=== PATIENT | female | born 1990 | race Hispanic/Latino ===

== ENCOUNTER 2017-12-26 11:14 | Emergency (ER) | payer OTHER, BC, SELFPAY ==
[2017-12-26] VITALS (9 sets, daily range): BP systolic 94–124; BP diastolic 57–92; PULSE 62–112; RESP 15–24; TEMP 36.7; O2SAT 91–100; BMI 31.2
[2017-12-26] MEDS: Ondansetron 4 MG/2 ML Vial IV (11:19)
[2017-12-26] MEDS: Propofol 200 MG/20 ML Vial IV BOLUS (11:52)
[2017-12-26] MEDS: Ketorolac 30 MG/ML Syringe IV (11:57)
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
== END 2017-12-26 13:09 | disposition home or self-care (01) ==
PROVIDERS: Emergency Provider Emergency Medicine; Family Provider Student in an Organized Health Care Education/Training Program; PCP Student in an Organized Health Care Education/Training Program
DX: S82.852A Displaced trimalleolar fracture of left lower leg, initial encounter for closed fracture (principal); S00.81XA Abrasion of other part of head, initial encounter; Y04.2XXA Assault by strike against or bumped into by another person, initial encounter; Y93.9 Activity, unspecified; Y92.119 Unspecified place in children's home and orphanage as the place of occurrence of the external cause; Y99.0 Civilian activity done for income or pay; J45.909 Unspecified asthma, uncomplicated
CPT/HCPCS: 27818; 73600; 73610; 96374; 96375; 99152; 99285; J7030; J2405

== ENCOUNTER 2017-12-29 12:32 | Day surgery (SDC) | payer OTHER, SELFPAY ==
[2017-12-29] VITALS (9 sets, daily range): BP systolic 109–129; BP diastolic 59–79; PULSE 72–99; RESP 16–18; TEMP 36.2–36.4; O2SAT 93–100; BMI 29.3
[2017-12-29] MEDS: Cefazolin 2 GM in 0.9% Normal Saline 100 ML IV (07:00)
[2017-12-29 13:16] LABS: Hematocrit 35.8 % (37-47); Hemoglobin 11.8 g/dl (12.0-15.0); Mean Corpuscular Hgb 30.3 pg (27.0-32.0); Platelet Count 267 K/mm3 (150-450); RBC Distribution Width CV 12.4 % (11.6-14.6); RBC Distribution Width SD 40.5 fl (35.1-43.9); Red Blood Count 3.89 M/mm3 (4.2-5.4); White Blood Count 6.1 K/mm3 (4.4-11.0)
[2017-12-29 13:18] LABS: Internal QC Validated? YES +Cl - CLEAR BKGD; Pregnancy, Urine Negative Negative
[2017-12-29 13:19] LABS: Scan Indicated on CBC? Y/N NO
[2017-12-29 13:30] LABS: Partial Thromboplast Time 27.7 Seconds (24.1-36.2); Prothrombin Time (Protime)PT. 13.5 SECONDS (11.7-14.9)
[2017-12-29 13:31] LABS: AST(SGOT) 290 U/L (15-37); Alanine Aminotransfer ALT/SGPT 492 U/L (13-56); Albumin, Serum 3.2 g/dL (3.2-5.0); Alkaline Phosphatase 277 U/L (45-117); Bilirubin, Direct 0.44 mg/dL (0.00-0.30); Globulin 3.9 g/dL (2.2-4.2); Protein, Total 7.1 g/dL (6.4-8.2)
--- NOTE | 2017-12-29 15:46 | PCM.OPRPT ---
Report of Operation Date of Procedure: 12/29/17 Pre-Operative Diagnosis: Left trimalleolar ankle fracture Post-Operative Diagnosis: Left trimalleolar ankle fracture Surgery/Procedure Performed:: Open reduction internal fixation medial and lateral malleolus of trimalleolar ankle fracture. Stress exam under uroscopy left ankle and syndesmosis Description of Surgical Findings:: Stable reduction, stable syndesmosis on stress exam chief environmental commitment officer: Lex Salamanca Type of Anesthesia:: General Anesthesiologist: Zenon Crawford Special Medications: 2 g Ancef Estimated Blood Loss (mL): 15 Fluids Replaced: 1200 milliliters crystalloid Description of Procedure: On the date of the procedure patient's left ankle was marked in the preoperative area. Patient was taken back to the operating room where she was transferred to the table in supine position. Anesthesia assumed control the C-spine airway and remained in control throughout the remainder the procedure. Anesthesia was administered. Bump was placed under the left hip. Tourniquet was placed in the right upper extremity. Left leg was elevated using towels. Right leg was secured to the bed. Left lower extremities and prepped in a sterile fashion while surgeon scrubbed. Upon reentering the room the left lower exam he was draped in standard orthopedic fashion. Incisions were marked out and timeout was called. When agreed upon the side, the site, the procedure to be performed, patient identity and antibiotics given. Incision was made at the skin sub cutaneous tissue fat down to fascia. We then used blunt dissection to identify the superficial peroneal nerve which crossed right over the fracture site. This nerve was identified and protected throughout the case. Fracture was identified and dissected out. Once the fracture was identified and exposed hematoma was irrigated out with normal saline. Fracture was then reduced using pointed reduction clamps. Live x-ray was used to verify the fracture reduction. Once we have with the fracture reduction a 2.7mm lag screw was placed using a lag technique. Once this was completed the fracture was stable. We then used a 6 hole one third tubular plate placing the screws proximally and distally. Once this was done we used live fluoroscopy to verify fracture reduction. Our attention was then directed towards the medial malleolus. Incision was made over the medial ankle fracture was identified. Fracture was exposed. Once the fracture was exposed hematoma was irrigated. Point reduction clamp was used to reduce the fracture. Live x-ray was used to verify fracture reduction. At this time the live x-ray was used to drill for 2, 50 mm 4-0 partially-threaded cancellous screws. Once the screws were placed and verified under live fluoroscopy final x-rays were performed. Once we are happy with our fracture reduction and reduction of the ankle we noted that the small posterior malleolar fragment did not need to be reduced to the ankle was stable well aligned and well reduced. Once we are happy with ourh our fracture reduction we then obtain an appropriate mortise view. External rotation was placed on the ankle and the mortise did not widen. This showed us that the syndesmosis was stable. Wound was copiously out normal saline. Skin was closed using 2-0 Vicryl & 3-0 nylon. Xeroform dressing was placed, compressive dressing was placed. Well-padded splint was placed posteriorly. Patient was awakened by anesthesia and taken to the PACU for recovery. Postoperative plan is nonweightbearing for 6 weeks. Patient will return to the office in 2 weeks to begin range of motion exercises and have her sutures removed. She was instructed to take 325 mg aspirin once daily for DVT prophylaxis for the next 2 weeks. My physician bilingual office assistant was vital throughout this case. He was vital in helping with reduction of the fracture. He was vital in protecting soft tissues. He was especially vital in protecting superficial peroneal nerve throughout the case. He was vital in closure and placement of the splint under my direct supervision. Grafts/Implants Used: 7 hole 1/3 tubular Synthes plate, 45 mm partially threaded cancellous screw - Complications none - Admit VTE Documentation VTE Present on Admission: No VTE Mechan Device Prophylaxis: SCD's VTE Pharm Prophylaxis ordered?: Yes
[2017-12-29] MEDS: oxyCODONE 5 MG Tablet PO (17:59)
== END 2017-12-29 19:29 | disposition home or self-care (01) ==
LOC: SDC 12:34 → AC 12:35
PROVIDERS: Family Provider Student in an Organized Health Care Education/Training Program; PCP Student in an Organized Health Care Education/Training Program; Visit Provider Specialist
PROC: (CPT 27822; principal; 2017-12-29 15:10)
DX: S82.852A Displaced trimalleolar fracture of left lower leg, initial encounter for closed fracture (principal); S93.05XA Dislocation of left ankle joint, initial encounter; W50.2XXA Accidental twist by another person, initial encounter; Y93.9 Activity, unspecified; Y92.9 Unspecified place or not applicable; Y99.9 Unspecified external cause status; J45.909 Unspecified asthma, uncomplicated
CPT/HCPCS: 27822; 73610; 76000; 80076; 81025; 85027; 85610; 85730; C1713; J7120; J2405

== ENCOUNTER 2018-01-01 18:46 | Emergency (ER) | payer OTHER, SELFPAY ==
[2018-01-01 18:47] VITALS: BP 118/65; PULSE 100; RESP 17; TEMP 37.1; O2SAT 93; BMI 29.8
[2018-01-01] MEDS: HYDROcodone Bitartrate/Apap 5/325 Tablet PO (19:39)
--- NOTE | 2018-01-01 19:41 | ED.VISSUMM ---
- ER Visit Summary Date of Service: 01/01/18 Chief Complaint: Left foot numbness History of Present Illness: The patient is a 27 F sudden numbness left foot and ankle 2 hours prior to arrival. 3 days postop ORIF of left ankle from a trimalleolar fracture [address] Pope is orthopedist. She is in a splint and Rene wrap. She states she is elevating her extremity. She is written for Percocet prescription however states since being given it would have emesis every time. Initially in the ED was given hydrocodone for which she tolerated. States pain is not controlled due to not being able to hold down the medications. Physical Examination: General: Alert and oriented ?3, no acute distress HEENT: Normocephalic, atraumatic. Moist mucosa membranes Neck: supple, nontender. Cardiovascular: Regular rate and rhythm, no murmurs Respiratory: Normal breath sounds, symmetric, no distress Abdomen: Soft, nontender, nondistended Extremities: Left lower extremity: Posterior short leg splint with Rene wrap. DP pulses intact. She states she is unable to move her toes, decreased sensation. Cap refill is less than 3 seconds in all 5 toes. Test Results: [] Emergency Department Course and Treatment: Rene wrap was removed from splint, she was treated with hydrocodone. She is monitored on reevaluation, her sensation in improved along with movement of her toes. Gentle wrap was placed. Discussed with patient continue elevation. OAARS noted her initial hydrocodone along with secondary oxycodone 40 tabs. I discussed with the patient will write for hydrocodone, however she will need to take her oxycodone to the pharmacies return in in order for them to refill. Patient understands and agrees with plan. Treatment Plan: [] Disposition: Discharge Impression: 1. Splint evaluation 2. Medication intolerance This note was generated with [employer] dictation software. It may contain incorrect words, spelling, and punctuation that were not noted in review of the chart prior to signing ED Disposition - Plan for ED Patient: Disposition: Home or Assisted Living Chief Complaint: Lower Extremity Injury Diagnosis: Splint evaluation, Medication intolerance Instructions: Discharge Instructions: Splint Care Prescriptions: Hydrocodone Bitart/Apap 5-325 [[place] 5MG-325MG] 1 tablet PO Q6H PRN PRN #20 tablet PRN Reason: Pain Referrals: Drake Whiting DO [Primary Care Provider] - Blane Pope MD [STAFF PHYSICIAN] - Keep Ross appointment
== END 2018-01-01 19:54 | disposition home or self-care (01) ==
PROVIDERS: Emergency Provider Emergency Medicine; Family Provider Student in an Organized Health Care Education/Training Program; PCP Student in an Organized Health Care Education/Training Program
DX: R11.2 Nausea with vomiting, unspecified (principal); S82.852D Displaced trimalleolar fracture of left lower leg, subsequent encounter for closed fracture with routine healing; T40.2X5A Adverse effect of other opioids, initial encounter; Y92.9 Unspecified place or not applicable; X58.XXXD Exposure to other specified factors, subsequent encounter
CPT/HCPCS: 99283

== ENCOUNTER 2018-06-05 20:15 | Emergency (ER) | payer OTHER, BC, SELFPAY ==
[2018-06-05 20:16] VITALS: BP 111/71; PULSE 90; RESP 14; TEMP 37.1; O2SAT 97; BMI 29.2
--- NOTE | 2018-06-05 20:27 | RAD_ITS ---
We are attempting to reach [facility] to discuss findings. An addendum with communication details will be sent when the communication is complete. STUDY: X-RAY - LEFT ANKLE REASON FOR EXAM: Female, 28 years old. Increased pain and numbness TECHNIQUE: 3 view(s) of the ankle. COMPARISON: 12/29/2017 FINDINGS: The fusion hardware of the distal fibula and medial malleolus have been removed since the prior study with residual lucencies correlating testicular tracts. The medial malleolus and distal fibular fractures have healed. No fracture or destructive bony process. Normal tibiotalar articulation and ankle mortise. Normal visualized talus and calcaneus. The visualized subtalar, talonavicular, calcaneocuboid and tarsal articulations are normal. The soft tissue structures are unremarkable. RAD/Ankle min 3 Views IMPRESSION: 1. Removal of surgical hardware. Healed distal fibular and medial malleolus fractures. Pending Final Proof Editing
[2018-06-05] MEDS: Ibuprofen 600 MG Tablet PO (20:42)
--- NOTE | 2018-06-05 20:50 | ED.DCSUM_ITS ---
- ER Visit Summary Date of Service: 06/05/18 Chief Complaint: [Left ankle pain History of Present Illness: The patient is a 28 F who has left ankle pain. Is been hurting her worse for the past 3 days. She had a fracture in December and has had 3 subsequent surgeries for ORIF and then she subsequently had hardware removal. This was all done by Dr. Pope. She denies any new injury. Her pain is increasing and she states it also feels numb. It is diffusely across her ankle. Movement makes it worse. She tried Tylenol at home. Physical Examination: Vital signs are reviewed. Left ankle exam reveals diffuse tenderness. There is no swelling. She has decreased range of motion secondary to pain. Pulses are equal. Her incisions are clean dry and intact and well- healed. Test Results: Left ankle x-rays revealed healed fractures and evidence of hardware removal but no fractures. Emergency Department Course and Treatment: She requested ibuprofen here. She was given this. I do not see any acute causes for her pain. She will need follow-up with orthopedics. I will give her a work note. She will follow-up with orthopedics. Treatment Plan: [] Disposition: Discharge Impression: Ankle pain, left This note was generated with [employer] dictation software. It may contain incorrect words, spelling, and punctuation that were not noted in review of the chart prior to signing ED Disposition - Plan for ED Patient: Chief Complaint: Lower Extremity Injury Referrals: Drake Whiting DO [Primary Care Provider] -
--- NOTE | 2018-06-05 21:23 | ED.DEP ---
ED Disposition - Plan for ED Patient: Disposition: Home or Assisted Living Chief Complaint: Lower Extremity Injury Instructions: ED Contusion Lower Ext Referrals: Drake Whiting DO [Primary Care Provider] -
[2018-06-05 21:44] VITALS: BP 111/75
== END 2018-06-05 21:49 | disposition home or self-care (01) ==
PROVIDERS: Emergency Provider Emergency Medicine; Family Provider Student in an Organized Health Care Education/Training Program; PCP Student in an Organized Health Care Education/Training Program
DX: M25.572 Pain in left ankle and joints of left foot (principal)
CPT/HCPCS: 73610; 99282

== ENCOUNTER 2018-11-06 19:29 | Emergency (ER) | payer OTHER, MEDICAID, SELFPAY ==
[2018-11-06 19:30] VITALS: BP 120/70; PULSE 85; PULSE 88; RESP 14; RESP 16; TEMP 36.4; TEMP 36.6; O2SAT 100; O2SAT 98; BMI 31.4
--- NOTE | 2018-11-06 19:48 | RAD_ITS ---
STUDY: X-RAY - LEFT ANKLE REASON FOR EXAM: Female, 28 years old. Left ankle pain TECHNIQUE: 3 view(s) of the ankle. COMPARISON: Left ankle x-ray 06/05/2018 FINDINGS: Of note, the images are labeled RIGHT, these are in fact images of the LEFT ankle. Again seen are residual lucencies corresponding to the previously removed screw tracts in the distal fibula diaphysis. There is chronic, healed fracture of the distal fibula. No apparent acute fracture. Normal visualized distal tibia . Normal medial and lateral malleoli. Normal tibiotalar articulation and ankle mortise. Normal visualized talus and calcaneus. The visualized subtalar, talonavicular, calcaneocuboid and tarsal articulations are normal. The soft tissue structures are unremarkable. RAD/Ankle min 3 Views IMPRESSION: No acute fracture or dislocation. Chronic changes of the distal fibula as described above are unchanged. Electronically Signed: Chyna Yousif, at 20:10 EDT Tel , Service support ,
--- NOTE | 2018-11-06 20:09 | ED.VISSUMM ---
- ER Visit Summary Date of Service: 11/06/18 Chief Complaint: Left ankle pain History of Present Illness: The patient is a 28 F who broke her left ankle last fall while working at [employer]. She is had multiple surgeries to repair and then remove the hardware. She is scheduled to see a new surgeon in [place]. She reports increased pain does not remember new specific injury. Pain is been worse over the past 3 days. Physical Examination: Vital signs unremarkable. Patient sitting upright in bed no acute distress. Left lower extremity examination was tenderness along the lateral malleolus and well-healed incision. There is no edema or erythema. Strong pulses are noted. No tenderness of the proximal fibula. Test Results: Left ankle x-rays reveal no acute fracture. Emergency Department Course and Treatment: I did do an [facility] report. She had 21 tabs of tramadol written on October 24 that she states she is out of. She last got oxycodone in December 2017. Patient states that she spoke with orthopedics and they advised her to come in to get him stronger for pain for a day or 2 until she could be seen. She will be given 6 tabs of Percocet only. She was encouraged to use her crutches to stay off of the ankle to see if that improves. Treatment Plan: [] Disposition: Discharge Impression: Left ankle sprain with history of ankle surgeries This note was generated with [employer] dictation software. It may contain incorrect words, spelling, and punctuation that were not noted in review of the chart prior to signing ED Disposition - Plan for ED Patient: Disposition: Home or Assisted Living Instructions: Sprain, Ankle, with X-Ray Prescriptions: Oxycodone HCl/Acetaminophen [Percocet 5/325] 1 tablet PO Q6H PRN PRN 3 Days #6 tablet PRN Reason: Pain Referrals: Drake Whiting DO [Primary Care Provider] - Additional Instructions: Follow-up with orthopedics this week to get your referral to the surgeon in [place]. Use crutches as needed.
[2018-11-06 20:21] VITALS: BP 117/70; PULSE 80; RESP 14; O2SAT 98
== END 2018-11-06 20:21 | disposition home or self-care (01) ==
PROVIDERS: Emergency Provider Emergency Medicine; Family Provider Student in an Organized Health Care Education/Training Program; PCP Student in an Organized Health Care Education/Training Program
DX: S93.402A Sprain of unspecified ligament of left ankle, initial encounter (principal); X58.XXXA Exposure to other specified factors, initial encounter; Y93.9 Activity, unspecified; Y92.9 Unspecified place or not applicable; Y99.9 Unspecified external cause status; J45.909 Unspecified asthma, uncomplicated
CPT/HCPCS: 73610; 99282

== ENCOUNTER 2018-12-13 21:24 | Emergency (ER) | payer OTHER, SELFPAY ==
[2018-12-13 21:25] VITALS: BP 118/61; PULSE 106; RESP 16; TEMP 36.6; O2SAT 98; BMI 31.0
[2018-12-13 21:59] VITALS: BP 122/70; PULSE 90; RESP 14; RESP 16; TEMP 36.6; O2SAT 98
[2018-12-13] MEDS: HYDROcodone Bitartrate/Apap 5/325 Tablet PO (22:25)
[2018-12-13] MEDS: 0.9% Normal Saline 1,000 ML 1000 ML IV (22:26)
[2018-12-13 22:43] LABS: Absolute Lymphocyte Count 2.47 X10^3/uL (0.83-4.51); Basophil# 0.02 X10^3/uL; Basophil% 0.3 % (0-1); Eosinophil# 0.07 X10^3/uL; Eosinophils% 0.9 % (0-5); Hematocrit 37.2 % (37-47); Hemoglobin 11.9 g/dL (12.0-15.0); Lymphocyte # 2.47 X10^3/ul (4.0); Mean Corpuscular Hgb 30.1 pg (27.0-32.0); Mean Corpuscular Volume 93.9 fL (81-99); Mean Platelet Vol. 9.3 fl (6.2-12.0); NRBC Flagged by Analyzer 0 % (0-5); Neutrophil # 4.98 X10^3/uL (2.7-7.7); Neutrophil % 62.4 % (47-70); Platelet Count 268 K/mm3 (150-450); RBC Distribution Width CV 11.9 % (11.6-14.6); RBC Distribution Width SD 41.2 fl (35.1-43.9); Red Blood Count 3.96 M/mm3 (4.2-5.4)
--- NOTE | 2018-12-13 22:50 | RAD_ITS ---
STUDY: X-RAY - LEFT TIBIA AND FIBULA REASON FOR EXAM: Female, 28 years old. Left ankle swelling TECHNIQUE: 2 view(s) of the tibia and fibula were obtained. COMPARISON: None. FINDINGS: Multiple remote hardware defects in the tibia and fibula. No acute fracture or osteolytic lesion. No periosteal reaction. Soft tissue swelling. RAD/Tibia & Fibula 2 Views IMPRESSION: No acute osseous abnormality is evident. Electronically Signed: Wade Cash MD at 23:00 EDT Tel , Service support ,
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
[2018-12-13 23:00] LABS: Anion Gap 5 (5-15); BUN 15 mg/dL (7-18); BUN/Creat Ratio 18.2 RATIO (10-20); Chloride 106 mmol/L (98-107); Creatinine, Serum 0.83 mg/dL (0.55-1.02); EST Glomerular Filtration Rate 87 mL/min (>60); Est Glom Filt Rate - Afr Amer 106 mL/min (>60); Estimated Creatinine Clearance 79.81 ml/min; Glucose 99 mg/dL (74-106); Potassium 3.7 mmol/L (3.5-5.1); Sodium Level 139 mmol/L (136-145)
== END 2018-12-13 23:43 | disposition home or self-care (01) ==
PROVIDERS: Emergency Provider Emergency Medicine; Family Provider Student in an Organized Health Care Education/Training Program; PCP Student in an Organized Health Care Education/Training Program
DX: G89.18 Other acute postprocedural pain (principal); M79.605 Pain in left leg
CPT/HCPCS: 73590; 80048; 85025; 96360; 99284; J7030

== ENCOUNTER → 2019-05-04 | Outpatient (CLI) | payer MEDICAID, SELFPAY ==
[2019-05-04 11:26] VITALS: BMI 31.0
== END | disposition home or self-care (01) ==
LOC: LABSPEC 14:19
PROVIDERS: Family Provider Student in an Organized Health Care Education/Training Program; PCP Student in an Organized Health Care Education/Training Program; Referring Provider Physician Assistant; Visit Provider Physician Assistant
DX: J02.9 Acute pharyngitis, unspecified (principal)
CPT/HCPCS: 87070

== ENCOUNTER 2019-05-18 10:25 | Day surgery (SDC) | payer MEDICAID, SELFPAY ==
[2019-03-21 16:14] VITALS: BMI 31.0
[2019-05-04 11:26] VITALS: BMI 31.0
--- NOTE | 2019-05-05 11:06 | EKG12_ITS ---
Test Reason : PREOP Blood Pressure : / mmHG Vent. Rate : 090 BPM Atrial Rate : 090 BPM P-R Int : 136 ms QRS Dur : 082 ms QT Int : 360 ms P-R-T Axes : 063 039 031 degrees QTc Int : 440 ms Normal sinus rhythm Normal ECG Confirmed by LENIN ARANGO ([id number]), greeting card editor JOANNA ALVAREZ ([id number]) on 05/09/2019 2:55:58 PM Referred By: Edmond Alvarez Confirmed By:LENIN ARANGO
[2019-05-05 11:38] LABS: Absolute Lymphocyte Count 1.55 X10^3/uL (0.83-4.51); Absolute Neutrophil Count 3.8 X10^3/uL (2.0-7.7); Basophil# 0.02 X10^3/uL; Basophil% 0.3 % (0-1); Eosinophils% 1.7 % (0-5); Hematocrit 36.1 % (37-47); Hemoglobin 11.5 g/dL (12.0-15.0); Lymphocyte # 1.55 X10^3/ul (4.0); Lymphocyte % 26.3 % (19-41); Mean Corp Hgb Conc 31.9 g/dL (32-36); Mean Corpuscular Hgb 29.2 pg (27.0-32.0); Mean Corpuscular Volume 91.6 fL (81-99); Mean Platelet Vol. 9.5 fl (6.2-12.0); Monocyte# 0.44 X10^3/uL; Monocyte% 7.5 % (0-10); NRBC Flagged by Analyzer 0 % (0-5); Neutrophil # 3.78 X10^3/uL (2.7-7.7); Platelet Count 249 K/mm3 (150-450); RBC Distribution Width CV 12.4 % (11.6-14.6); RBC Distribution Width SD 41.7 fl (35.1-43.9); Red Blood Count 3.94 M/mm3 (4.2-5.4); White Blood Count 5.9 K/mm3 (4.4-11.0)
[2019-05-05 11:47] LABS: Partial Thromboplast Time 33.9 Seconds (24.1-36.2)
[2019-05-05 11:54] LABS: BUN 9 mg/dL (7-18); Creatinine, Serum 0.81 mg/dL (0.55-1.02); Glucose 102 mg/dL (74-106)
[2019-05-05 11:55] LABS: Anion Gap 5 (5-15); BUN/Creat Ratio 11.2 RATIO (10-20); Calcium,Total 8.3 mg/dL (8.5-10.1); Chloride 107 mmol/L (98-107); EST Glomerular Filtration Rate 89 mL/min (>60); Est Glom Filt Rate - Afr Amer 108 mL/min (>60); Potassium 4.1 mmol/L (3.5-5.1); Sodium Level 139 mmol/L (136-145)
[2019-05-05 11:58] LABS: International Normalized Ratio 1.1; Prothrombin Time (Protime)PT. 14.1 SECONDS (11.7-14.9)
--- NOTE | 2019-05-11 13:53 | RAD_ITS ---
STUDY: X-RAY CHEST REASON FOR EXAM: Female, 28 years old. PRE OP , NO CHEST COMPLAINTS TECHNIQUE: PA and lateral views of the chest. COMPARISON: 04/18/2010 FINDINGS: The lungs are clear and expanded. There is no demonstrated pleural abnormality. Normal size heart. Normal mediastinum and devin. Normal visualized pulmonary arteries. Normal visualized aortic arch and descending thoracic aorta. Normal visualized thoracic spine. Normal visualized ribs, clavicles, and shoulders. There is no demonstrated abnormality of the visualized soft tissue structures of the upper abdomen. RAD/Chest PA and Lateral IMPRESSION: Normal x-ray examination of the chest. Electronically Signed: Silvio Daugherty MD at 16:16 EST Tel , Service support ,
[2019-05-18] VITALS (9 sets, daily range): BP systolic 84–112; BP diastolic 47–68; PULSE 66–84; RESP 10–16; TEMP 36.6–36.9; O2SAT 85–100; BMI 31.9
[2019-05-18 10:59] LABS: Internal QC Validated? YES +Cl - CLEAR BKGD
[2019-05-18 11:00] LABS: Pregnancy, Urine Negative Negative
[2019-05-18] MEDS: Lactated Ringers 1,000 ML 100 ML IV (11:02)
[2019-05-18] MEDS: Cefazolin 2 GM in 0.9% Normal Saline 100 ML IV (12:27)
--- NOTE | 2019-05-18 13:30 | DCINST_ITS ---
Discharge Diet: No Restrictions Discharge Activity: May Not Drive, May Not Shower, Use Walker, Use Crutches Weight Bearing Status: No weight bearing Keep extremity elevated above heart level: Left Leg Call your doctor if you observe: Fever of 101 or Higher, Shortness of breath, Chest pain, Increased palpitations (irregular heartbeat), Calf discomfort, Uncontrolled pain Cleanse incision/area with: Keep Dressing Clean & Dry Additional Dressing/Incision Instructions:: keep dressing to left leg clean, dry and intact. do not get dressing wet. if get dressing wet, call office immediately for dressing change. elevate left foot above level of heart as much as possible. ice behind left knee 20 minutes on 20 minutes off every hour while awake until follow up appointment. begin taking doxycycline (antibiotic) and aspirin tomorrw, 05/19/2019, as instructed. begin taking percocet tonight. 3 hours after taking percocet, take ibuprofen 800mg. Take next percocet 3 hours after ibuprofen and six hours after first percocet. continue alternating between medications. make take 2 percocets at once if needed. no walking/standing on left foot. use crutches/walker/wheelchair for assistance. Allergies/Adverse Reactions: Allergies morphine Adverse Reaction (Verified 05/18/19 10:39) Vomiting pseudoephedrine HCl [From Sudafed] Adverse Reaction (Verified 05/18/19 10:39) Vomiting Medications to take at Discharge Albuterol Inhaler [Ventolin Hfa] 1 - 2 puff INHALATION Q4H PRN PRN 12/28/17 Acetaminophen [Tylenol Extra Strength] 500 - 1,000 mg PO Q6H PRN PRN 05/11/19 Primary Care Physician: Drake Whiting DO [Primary Care Provider] - Test Results: Test results from this visit will be discussed in further detail at your follow- up appointment, if applicable. Please Follow Up With: Edmond Alvarez DPM When: 1 week Proposed Discharge Date: 05/18/19
--- NOTE | 2019-05-18 13:34 | OP.PCM_ITS ---
Problem List (1) Short Achilles tendon (acquired), left ankle Status: Chronic (2) Pain in left ankle Status: Acute Qualifiers: Chronicity: chronic Qualified Code(s): M25.572 - Pain in left ankle and joints of left foot; G89.29 - Other chronic pain Report of Operation Date of Procedure: 05/18/19 Pre-Operative Diagnosis: 1. Shortened Achilles tendon left leg, acquired. 2. Pain in left ankle. Post-Operative Diagnosis: Same as preoperative Surgery/Procedure Performed:: 1. Left gastrocnemius recession via a Arlette procedure Description of Surgical Findings:: Consistent with diagnosis. Increase in dorsiflexory component of the left foot at the level of the ankle compared to preoperative assessment. 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: Adrianna Arteaga Type of Anesthesia:: General/Supplemental - left popliteal block Anesthesiologist: Fredy Benson Special Medications: 2 grams ancef given preoperatively Specimen's removed: none Drains: none Estimated Blood Loss (mL): 0 Description of Procedure: Pathology: None Anesthesia: General with popliteal block to left lower extremity Hemostasis: Pneumatic thigh tourniquet placed at the left level of left thigh 300 mmHg for 42 minutes Estimated blood loss: Minimal Materials: Size 2-0 Vicryl, size 3-0 Vicryl, size 3-0 nylon Injectables: None Complications: none Condition: stable Indications: Patient is a 28-year-old female who suffered an ankle fracture in December 2017. Surgical intervention was performed with open reduction internal fixation. Tj leung subsequently had painful hardware, and underwent hardware removal. Unfortunately, patient was then diagnosed with a superficial peroneal nerve neuritis due to increased pain in the left lower extremity. Repair of the superficial peroneal nerve was performed in November 2018. Patient now sees me as an outpatient. Patient has been having increased pain in her left Achilles tendon for approximately 3 months. Patient states that her Achilles tendon feels tight and it is happening her activities of daily living. During her office visits, it was found that the patient had a gastrocnemius equinus. I urged the patient to try conservative therapy, including stretching exercises, formal physical therapy, inserts with a heel lift. Patient states that all these conservative therapies failed and she was still having pain. The pain became severe and it was inhibiting her ability to work. After multiple discussions were had with the patient, I discussed with the patient a lengthening of the posterior aspect the left leg via gastrocnemius recession. Patient displayed verbal understanding to the procedure and was agreeable to surgical intervention. Operative report: Before the patient was brought to the operating room, the risks, benefits, possible outcomes, possible complications of the procedure discussed with the patient. This included but was not limited to DVT, infection, delayed or nonhealing wounds, loss of limb, loss of life. All patient questions were answered to her satisfaction and all of her concerns were addressed. No guarantees were made as to the outcome of the procedure. Patient understood all aspects of the procedure, and consent was then signed with the patient. The left foot and ankle was then taken through range of motion to test for the equinus again. Patient is then brought to the operating room. At that time, general anesthesia was obtained with the patient was on the transfer bed. Patient then placed in a prone position on the operative bed. Care was diminished with adequate padding was placed on the bed before the patient was placed prone. Furthermore, care was to make sure that her airway was free and clear. This was performed by the anesthesia team. After timeout, a well-padded pneumatic thigh tourniquet was placed to level of the left thigh. The left foot, ankle, leg were then scrubbed, prepped, draped in the usual sterile manner. Attention was then turned to the posterior aspect the left leg. At this time, the inferior medial and lateral heads of the gastrocnemius were palpated and marked on the patient. Next a central line was drawn on the posterior aspect of the left leg. Measurement was taken 3 cm distal to the medial head of gastrocnemius. This would be the center of the incision where the Arlette arguello would be performed. At this time, a linear longitudinal incision was made over the central aspect of the posterior leg approximately 4 cm in length, centered over that 3 cm yusuf. This incision was deepened utilizing blunt dissection. The sural nerve along with the small saphenous vein was identified and retracted. All the vital neural and vascular structures were identified and retracted. All bleeders were cauterized and ligated as necessary. At this time, a linear incision was made in line with the original skin incision of the peritenon. The gastrocnemius aponeurosis was then identified. Next, a #15 blade was used to perform a transverse incision through the gastrocnemius aponeurosis. Care was taken make sure that the foot and ankle held in a dorsiflexed position as this procedure was performed. Care was also taken to make sure that the soleus muscle was not cut and the sural nerve and small saphenous vein were protected. Once this was performed, immediate increase in the dorsiflexion component was noted from preoperative assessment. The patient was now able to obtain approximately 10 degrees of dorsiflexion when preoperatively it was 0. It was determined this time that no Achilles tendon lengthening would be performed due to the adequate range of motion that was obtained. The surgical site irrigated copious amounts of normal sterile saline. The peritenon was then reapproximated coapted utilizing 2-0 Vicryl. The subcutaneous tissue was reapproximated coapted utilizing 2-0 Vicryl and 3-0 Vicryl. The skin was reapproximated coapted utilizing 3-0 nylon in a simple interrupted and horizontal mattress fashion. At this time pneumatic thigh tourniquet was then released and a prompt hyperemic response noted to the entirety of the left lower extremity. The surgical site was then dressed with Betadine soaked gauze, and a dry sterile dressing consisting of 4 x 4 gauze wrapped with Kerlix. The left foot and ankle then wrapped with an Rene bandage. At this time, a stockinette was placed over the left lower extremity. Cast padding was wrapped from the metatarsal heads extending proximally to the level just distal to the tibial tuberosity. A posterior splint was fashioned to the left lower extremity and was adhered to left lower extremity utilizing Rene bandages. Care was taken make sure the foot and ankle were held in a dorsiflexed position at the posterior splint dried. The patient tolerated the anesthesia and the procedure well and was transported to the PACU with vital signs stable neurovascular status intact to left lower extremity. After period of postoperative monitoring, patient will be discharged home with written and oral instructions for wound care and follow-up. The membership assistant, the nurse practitioner, was utilized throughout the entire procedure. She helped with patient positioning, holding of limb, holding retractors. She helped with exposure throughout. She helped with wound closure, bandage application, cast application. Without the membership assistant, surgical time would have been increased. Surgical outcome could have been less optimal. - Complications None - Admit VTE Documentation VTE Present on Admission: No
[2019-05-18] MEDS: Ibuprofen 400 MG Tablet 800 MG PO (16:14)
== END 2019-05-18 16:40 | disposition home or self-care (01) ==
LOC: SDC 10:27 → AC 10:28
PROVIDERS: Anesthesiology; Family Provider Student in an Organized Health Care Education/Training Program; PCP Student in an Organized Health Care Education/Training Program; Referring Provider Podiatrist Foot & Ankle Surgery; Visit Provider Podiatrist Foot & Ankle Surgery
PROC: (CPT 27650; principal; 2019-05-18 12:15)
DX: M76.62 Achilles tendinitis, left leg (principal); M67.02 Short Achilles tendon (acquired), left ankle; M25.572 Pain in left ankle and joints of left foot; G89.29 Other chronic pain; J45.909 Unspecified asthma, uncomplicated
CPT/HCPCS: 27687; 36415; 71046; 80048; 81025; 85025; 85610; 85730; 93005; J7120; J2405

== ENCOUNTER 2019-09-01 20:01 | Emergency (ER) | payer OTHER, MEDICAID, SELFPAY ==
[2019-07-18 17:48] VITALS: BMI 31.9
[2019-09-01 20:02] VITALS: BP 127/68; PULSE 90; RESP 18; TEMP 36.5; O2SAT 98; BMI 33.0
--- NOTE | 2019-09-01 20:43 | ED.DCSUM_ITS ---
History of Present Illness Chief Complaint: Poisoning Informant: Patient Onset: Today Narrative: Patient states that she was in her kitchen cooking and her sister was getting ready to mop the floor with bleach. There was bleach with some water in a prepared foods supervisor that just happened to be the same type of red cup that she was drinking out of. She turned around and grabbed a cup and started to drink and realize that it was the bleach cup. She states that she believes she swallowed a little and started spitting and then throwing up. She notes a burning in her throat and in her ears. She denies any difficulty swallowing. She states that this was strictly accidental. Past Medical History - Allergies and Home Meds Allergies/Adverse Reactions: Allergies morphine Adverse Reaction (Verified 09/01/19 20:04) Vomiting pseudoephedrine HCl [From Sudafed] Adverse Reaction (Verified 09/01/19 20:04) Vomiting Primary Care Physician: Drake Whiting DO [Primary Care Provider] - As Needed Smoking Status: Never smoker Review of Systems General: Denies: Chills, Fever, Sweats Eyes: Denies: Visual changes - bilaterally, Diplopia ENT: Reports: Sore throat. Denies: Rhinorrhea Cardiovascular: Denies: Chest pain, Palpitations Respiratory: Denies: Dyspnea, Cough, Dyspnea on exertion Gastrointestinal: Denies: Abdominal pain, Nausea, Vomiting, Diarrhea, Melena, Hematochezia Genitourinary: Denies: Dysuria, Hematuria, Frequency Musculoskeletal: Denies: Back pain, Extremity Pain Skin: Denies: Rash, Wounds Neurological: Denies: Headache, Weakness, Numbness Physical Exam Vital Signs/Narrative: Vital Signs Temp Pulse Resp BP Pulse Ox 09/01/19 20:02 97.7 F L 90 18 127/68 H 98 Inital Vital Signs reviewed: Yes General: Well nourished, Well developed, No Acute Distress Head: Normocephalic, Atraumatic Eyes: Perrl, EOMI ENT: Moist mucous membranes, No rhinorrhea, - - Specifically the patient is not drooling. She is handling her secretions. There is no oral pharyngeal domínguez that I can visualize. Neck: Supple, Nontender Cardiovascular: Regular rate, Regular rhythm, No murmurs Respiratory: No distress, CTA bilaterally, Chest nontender Abdomen: Soft, Nontender, Nondistended, Normal bowel sounds Back: Nontender, Normal Inspection Extremities: Nontender, No edema Skin: Normal color, No rash Neurological: Alert, Oriented x3, Cranial nerves II-XII grossly intact, Normal Strength, Normal Sensation Psychological: Normal affect, Normal Mood Diagnostic/Tx/Re-eval - Medical Decision Making I did discuss with poison control at 2044 hrs. Plan will be to observe the patient as this was household bleach and a small ingestion. We can offer her milk. We will reevaluate. At 2 205 hours patient was reassessed. She is laying back feeling secretions. She is tolerating p.o. She is to avoid acidic spicy foods for the next several days. Return if worsening or concerns ED Disposition - Plan for ED Patient: Disposition: Home or Assisted Living Diagnosis: Bleach ingestion, Pharyngitis Instructions: ED Accidental Ingestion Nontoxic Adult Referrals: Drake Whiting DO [Primary Care Provider] - As Needed Additional Instructions: Poison control's number is
[2019-09-01 22:21] VITALS: BP 106/62; PULSE 70; RESP 16; O2SAT 100
== END 2019-09-01 22:21 | disposition home or self-care (01) ==
PROVIDERS: Emergency Provider Emergency Medicine; PCP Student in an Organized Health Care Education/Training Program
DX: J02.9 Acute pharyngitis, unspecified (principal); T54.91XA Toxic effect of unspecified corrosive substance, accidental (unintentional), initial encounter
CPT/HCPCS: 99282

== ENCOUNTER 2019-11-26 12:15 | Emergency (ER) | payer OTHER, MEDICAID, SELFPAY ==
[2019-11-26 12:16] VITALS: BP 104/63; PULSE 88; RESP 14; TEMP 37; O2SAT 97; BMI 31.1
--- NOTE | 2019-11-26 12:29 | RAD_ITS ---
STUDY: X-RAY - LEFT ANKLE REASON FOR EXAM: Female, 29 years old. ankle gave out on her yesterday, pain -- previous fracture and surgery 2 years ago TECHNIQUE: 3 view(s) of the ankle. COMPARISON: November 06, 2018 and December 26, 2017. FINDINGS: There are healed fractures of the distal tibia and fibula. Mild spurring of the medial malleolus. Normal tibiotalar articulation and ankle mortise. Normal visualized talus and calcaneus. The visualized subtalar, talonavicular, calcaneocuboid and tarsal articulations are normal. There is no acute fracture. The soft tissue structures are unremarkable. RAD/Ankle min 3 Views IMPRESSION: Healed fractures. No acute fracture. Electronically Signed: Lew Dean MD at 13:49 EDT , Service support ,
--- NOTE | 2019-11-26 12:30 | ED.DCSUM_ITS ---
- ER Visit Summary Date of Service: 11/26/19 Chief Complaint: Left ankle pain History of Present Illness: The patient is a 29 F history of asthma and prior tibial fracture dislocation with prior 5 ankle surgeries. 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 No other injuries. She did not Physical Examination: No acute distress vital signs stable afebrile. Unremarkable. Lungs are clear. Heart regular rhythm. Abdomen soft nontender. Pelvic girdle intact. Both upper extremities right lower extremities are unremarkable. Left hip, thigh, knee, lower leg unremarkable. Left lateral malleolus mildly tender. Minimal swelling. DP pulse intact. Able to wiggle her toes. Achilles tendon intact. No gross bony deformity. Mild swelling. Foot is neurovascular intact. Neurologic exam unremarkable. Test Results: Left ankle x-ray 3 views read by myself shows no acute abnormality. No fracture dislocation. I did go over the films with the patient. Emergency Department Course and Treatment: Acute on chronic left ankle pain from a near fall. Prior fracture dislocation with 5 prior ankle surgeries. Treated with Motrin for pain. X-ray pending. Treatment Plan: Ice and elevate. Increase weightbearing as tolerated. Follow- up with your foot and ankle doctor. Air Cast. Disposition: Discharge Impression: Acute left ankle pain. This note was generated with [employer] dictation software. It may contain incorrect words, spelling, and punctuation that were not noted in review of the chart prior to signing ED Disposition - Plan for ED Patient: Referrals: Drake Whiting DO [Primary Care Provider] -
[2019-11-26] MEDS: Ibuprofen 600 MG Tablet PO (12:38)
--- NOTE | 2019-11-26 13:42 | ED.DEP ---
ED Disposition - Plan for ED Patient: Disposition: Home or Assisted Living Instructions: ED Sprain Ankle Referrals: Drake Whiting DO [Primary Care Provider] - 1 Week if not improving Additional Instructions: Ice elevate ankle. Tylenol Motrin for pain and swelling. Wear Aircast for 1 week and increase activity as tolerated.
[2019-11-26 14:02] VITALS: BP 109/80; PULSE 71; RESP 18
== END 2019-11-26 14:03 | disposition home or self-care (01) ==
PROVIDERS: Emergency Provider Emergency Medicine; PCP Student in an Organized Health Care Education/Training Program
DX: M25.572 Pain in left ankle and joints of left foot (principal); J45.909 Unspecified asthma, uncomplicated; G89.29 Other chronic pain; Z90.49 Acquired absence of other specified parts of digestive tract
CPT/HCPCS: 73610; 99283

== ENCOUNTER 2020-02-20 17:33 | Emergency (ER) | payer OTHER, MEDICAID, SELFPAY ==
[2020-01-29 16:54] VITALS: BMI 31.1
[2020-02-20 17:34] VITALS: BP 131/70; PULSE 94; RESP 15; TEMP 36.2; O2SAT 100; BMI 33.0
--- NOTE | 2020-02-20 17:54 | ED.DCSUM_ITS ---
History of Present Illness Chief Complaint: Abd Pain Informant: Patient Onset: Yesterday Context: Sudden Onset Timing: Continuous Quality: Pain Location: Right mid abdomen/flank Current Severity: Mild Maximum Severity: Moderate Worsened by: Nothing Relieved by: Nothing Associated Symptoms: Frequency Narrative: Patient is a 29-year-old female status post cholecystectomy [address] Nida Huynh. She presents with right-sided pain that started 2 days ago. She denies fever, chills night sweats. She denies cough, shortness of breath or difficulty breathing. She denies nausea, vomiting or diarrhea. She denies dysuria or hematuria. She denies vaginal bleeding or discharge. Last normal menstrual period January 24. She denies history of trauma. She has not noted a rash or any skin lesions. She denies prior episode. She denies change in color, consistency, caliber or frequency of her bowel movements. There is no history of IBS or IBD. Prior similar symptoms: No Recent Illness/Hospitalization: No - Past Medical History (1) No significant past medical history Status: Acute Past Medical History - Allergies and Home Meds Allergies/Adverse Reactions: Allergies morphine Adverse Reaction (Verified 02/20/20 17:33) Vomiting pseudoephedrine HCl [From Sudafed] Adverse Reaction (Verified 02/20/20 17:33) Vomiting Primary Care Physician: Drake Whiting DO [Primary Care Provider] - 3-5 Days if not improving Prior records reviewed: Yes Surgical History: cholecystectomy Lives: With Family Smoking Status: Never smoker Alcohol: None Drugs: None Review of Systems General: Denies: Chills, Fever, Malaise, Subjective, Sweats Eyes: Denies: Visual changes - bilaterally, Blurred Vision - bilaterally ENT: Denies: Rhinorrhea, Sore throat Cardiovascular: Denies: Chest pain, Palpitations Respiratory: Denies: Dyspnea, Cough, Dyspnea on exertion Gastrointestinal: Reports: Abdominal pain. Denies: Nausea, Vomiting, Diarrhea, Constipation, Melena, Hematochezia, -, - Genitourinary: Reports: Frequency. Denies: Dysuria, Hematuria, -, - Musculoskeletal: Reports: Back pain. Denies: Myalgias, Arthralgias, Neck pain, Swelling, Extremity Pain, -, - Skin: Denies: Rash, Wounds Neurological: Denies: Headache, Weakness, Numbness Endocrine: Denies: Polyuria, Polydipsia Hematologic: Denies: Easy bruising, Easy bleeding Physical Exam Vital Signs/Narrative: Vital Signs Temp Pulse Resp BP Pulse Ox 02/20/20 17:34 97.1 F L 94 15 131/70 H 100 Inital Vital Signs reviewed: Yes General: Well nourished, Well developed, Obese, No Acute Distress Head: Normocephalic, Atraumatic Eyes: Perrl, EOMI. Negative for: Pale conjunctiva ENT: Negative for: No rhinorrhea, Nasal congestion Neck: Negative for: Supple, Nontender, No lymphadenopathy, No JVD, - Cardiovascular: Regular rate, Regular rhythm, No murmurs. Negative for: Normal S1, Normal S2 Respiratory: No distress, CTA bilaterally, Chest nontender Abdomen: Soft, Nondistended, Normal bowel sounds, No masses, Tender. Negative for: Nontender, Guarding, Rebound tenderness, Hyperactive bowel sounds, Hypoactive bowel sounds, Hepatomegaly, Splenomegaly, Mass, Pulsatile mass, Ventral hernia, Umbilical hernia, Psoas sign, Rovsig's sign, Faust's sign Rectal: Deferred Back: Nontender, Normal Inspection. Negative for: CVA tenderness Extremities: Nontender, No edema Skin: Normal color, No rash, No Trauma. Negative for: Cyanosis, Diaphoresis, Jaundice Neurological: Alert, Oriented x3, Cranial nerves II-XII grossly intact, Normal Strength, Normal Sensation Psychological: Normal affect, Normal Mood Diagnostic/Tx/Re-eval Laboratory Results 02/20/20 02/20/20 02/20/20 18:15 18:15 18:35 WBC 7.8 RBC 3.78 L Hgb 10.9 L Hct 35.4 L MCV 93.7 MCH 28.8 MCHC 30.8 L RDW Std Deviation 43.4 RDW Coeff of Dionne 12.6 Plt Count 277 MPV 9.0 Immature Gran % (Auto) 0.300 Neut % (Auto) 65.4 Lymph % (Auto) 29.1 [place] % (Auto) 4.4 Eos % (Auto) 0.4 Baso % (Auto) 0.4 Absolute Neuts (auto) 5.1 Absolute Lymphs (auto) 2.26 Nucleated RBC % 0 Sodium 141 Potassium 3.8 Chloride 109 H Carbon Dioxide 29.0 Anion Gap 3 L BUN 14 Creatinine 0.82 Estim Creat Clear Calc 80.06 Est GFR (MDRD) Af Amer 106 Est GFR (MDRD) Non-Af 87 BUN/Creatinine Ratio 17.1 Glucose 97 Calcium 8.8 Urine Color Yellow Urine Clarity Sl. Cloudy Urine pH 7.0 Ur Specific Stanton 1.010 Urine Protein Negative Urine Glucose (UA) Normal Urine Ketones Negative Urine Occult Blood Negative Urine Nitrite Negative Urine Bilirubin Negative Urine Urobilinogen Normal Ur Leukocyte Esterase 500 H Urine RBC 0 SEEN Urine WBC 0-5 SEEN Ur Squamous Epith Cells 0-5 SEEN Urine Bacteria 0 SEEN Urine Mucus 0 SEEN Urine Trichomonas 0-5 SEEN Urine is remarkable for trichomonas. Will treat with Flagyl. Patient was informed of results. She was informed the cause of her right-sided abdominal pain is unknown. Since there is a 10 to 15% association with STI and trichomonas urine for GC and chlamydia was ordered. - Medical Decision Making Diagnosis includes renal/ureterolithiasis, pyelonephritis, cystitis doubt appendicitis or mesenteric adenitis. Will medicate with IV Toradol. ED Disposition - Plan for ED Patient: Disposition: Home or Assisted Living Diagnosis: Right-sided abdominal pain of unknown cause, Trichomonas vaginalis infection Instructions: ED Abdominal Pain Unkn Cause Fem, ED TRICHOMONAS VAGINITIS Prescriptions: metroNIDAZOLE [Flagyl] 500 mg PO Q8H #20 tab Transmission Status: Pending to [id number] Referrals: Drake Whiting DO [Primary Care Provider] - 3-5 Days if not improving
[2020-02-20] MEDS: Ketorolac 15 MG/ML Vial IV (18:16)
[2020-02-20 18:26] LABS: Absolute Lymphocyte Count 2.26 X10^3/uL (0.83-4.51); Absolute Neutrophil Count 5.1 X10^3/uL (2.0-7.7); Basophil# 0.03 X10^3/uL; Basophil% 0.4 % (0-1); Eosinophil# 0.03 X10^3/uL; Eosinophils% 0.4 % (0-5); Hematocrit 35.4 % (37-47); Hemoglobin 10.9 g/dL (12.0-15.0); Lymphocyte # 2.26 X10^3/ul (4.0); Lymphocyte % 29.1 % (19-41); Mean Corp Hgb Conc 30.8 g/dL (32-36); Mean Corpuscular Hgb 28.8 pg (27.0-32.0); Mean Corpuscular Volume 93.7 fL (81-99); Monocyte# 0.34 X10^3/uL; Monocyte% 4.4 % (0-10); NRBC Flagged by Analyzer 0 % (0-5); Neutrophil # 5.08 X10^3/uL (2.7-7.7); Neutrophil % 65.4 % (47-70); Platelet Count 277 K/mm3 (150-450); RBC Distribution Width CV 12.6 % (11.6-14.6); RBC Distribution Width SD 43.4 fl (35.1-43.9); Red Blood Count 3.78 M/mm3 (4.2-5.4); White Blood Count 7.8 K/mm3 (4.4-11.0)
[2020-02-20 18:36] LABS: Anion Gap 3 (5-15); BUN 14 mg/dL (7-18); BUN/Creat Ratio 17.1 RATIO (10-20); Calcium,Total 8.8 mg/dL (8.5-10.1); Chloride 109 mmol/L (98-107); Creatinine, Serum 0.82 mg/dL (0.55-1.02); EST Glomerular Filtration Rate 87 mL/min (>60); Est Glom Filt Rate - Afr Amer 106 mL/min (>60); Estimated Creatinine Clearance 80.06 ml/min; Glucose 97 mg/dL (74-106); Potassium 3.8 mmol/L (3.5-5.1); Sodium Level 141 mmol/L (136-145)
[2020-02-20 18:42] LABS: Bacteria 0 SEEN /hpf (None Seen); Mucous, Urine 0 SEEN /hpf (<or=2+); Red Blood Cells-Urine 0 SEEN /hpf (0-5)
[2020-02-20 19:09] LABS: Color, Urine Yellow (Yellow); Glucose, Dipstick Normal (Normal); Ketone-Dipstick Negative (Negative); Leukocyte Esterase-Dipstick 500 /ul (Negative); Nitrite-Dipstick Negative (Negative); Occult Blood-Urine Negative /ul (Negative); Protein-Dipstick Negative (Negative); Urine Bilirubin Dipstick Negative (Negative); Urine Clarity Sl. Cloudy (Clear); Urine Urobilinogen Normal (Normal)
[2020-02-20 19:23] LABS: Squamous Epithelial Cells - UA 0-5 SEEN /hpf (5-10)
[2020-02-20 19:24] LABS: Trichomonas 0-5 SEEN /hpf (None Seen); White Blood Cells 0-5 SEEN /hpf (0-5)
[2020-02-20] MEDS: metroNIDAZOLE 500 MG Tablet PO (20:02)
[2020-02-20 20:08] VITALS: BP 118/71; PULSE 80; RESP 18; O2SAT 98
[2020-02-20 21:51] LABS: Chlamydia Trachomatis by PCR Negative (Negative); Neisserai gonorrhoeae by PCR Negative (Negative); Probe Check PASS; Sample Adequacy Control PASS; Specimen Processing Control PASS
== END 2020-02-20 20:08 | disposition home or self-care (01) ==
PROVIDERS: Emergency Provider Emergency Medicine; PCP Student in an Organized Health Care Education/Training Program
DX: R10.9 Unspecified abdominal pain (principal); A59.01 Trichomonal vulvovaginitis; Z90.49 Acquired absence of other specified parts of digestive tract
CPT/HCPCS: 80048; 81001; 85025; 87491; 87591; 96374; 99281; 99285; A4216

== ENCOUNTER 2020-07-30 18:32 | Emergency (ER) | payer OTHER, MEDICAID, SELFPAY ==
[2020-07-29 14:50] VITALS: BMI 33.0
[2020-07-30 18:33] VITALS: BP 121/66; PULSE 90; RESP 15; TEMP 36.6; O2SAT 97; BMI 33.3
--- NOTE | 2020-07-30 18:54 | ED.DCSUM_ITS ---
- ER Visit Summary Date of Service: 07/30/20 Chief Complaint: Headache History of Present Illness: The patient is a 30 F presenting with headache. Patient states this started today. Headache was gradual in onset. She has taken Excedrin at home with no relief. No recent trauma. She has nausea with no vomiting. Denies fever. Denies numbness or tingling. Denies other complaints. Physical Examination: Vitals are stable. Patient is afebrile. Alert no acute distress. HEENT exam is unremarkable. Neck is supple. No meningismus Lungs are clear and equal bilaterally. Heart is regular rate and rhythm. Extremities are unremarkable. Skin is warm and dry. No focal neurologic deficit. Remainder of exam is unremarkable. Emergency Department Course and Treatment: Patient was given Reglan, Benadryl IV. Patient had some improvement of her headache. She was then given Toradol IV and now feels much improved on reevaluation. Advised to follow-up with primary care physician. Advised return to the ED for worsening complaints. Disposition: Discharge home Impression: Headache This note was generated with [employer] dictation software. It may contain incorrect words, spelling, and punctuation that were not noted in review of the chart prior to signing ED Disposition - Plan for ED Patient: Instructions: ED Headache Unspecified Referrals: Drake Whiting DO [Primary Care Provider] -
[2020-07-30] MEDS: DiphenhydrAMINE 50 MG/ML Syringe 25 MG IV (18:58)
[2020-07-30] MEDS: Metoclopramide 10 MG/2 ML Vial 5 MG IV (18:58)
[2020-07-30] MEDS: Ketorolac 30 MG/ML Syringe IV (20:03)
--- NOTE | 2020-07-30 20:33 | ED.DEP ---
ED Disposition - Plan for ED Patient: Instructions: ED Headache Unspecified Referrals: Draek Whiting DO [Primary Care Provider] -
[2020-07-30 20:47] VITALS: PULSE 82; RESP 16; O2SAT 98
== END 2020-07-30 20:48 | disposition home or self-care (01) ==
LOC: ED 18:50
PROVIDERS: Emergency Provider Emergency Medicine; PCP Student in an Organized Health Care Education/Training Program
DX: R51.9 Headache, unspecified (principal); R11.0 Nausea
CPT/HCPCS: 99283; J7030; A4216

== ENCOUNTER 2020-09-21 14:42 | Emergency (ER) | payer OTHER, MEDICAID, SELFPAY ==
[2020-09-21 14:43] VITALS: BP 114/62; PULSE 81; RESP 17; TEMP 37.2; O2SAT 97; BMI 34.1
--- NOTE | 2020-09-21 15:00 | EKG12_ITS ---
Test Reason : CP Blood Pressure : / mmHG Vent. Rate : 090 BPM Atrial Rate : 090 BPM P-R Int : 132 ms QRS Dur : 082 ms QT Int : 338 ms P-R-T Axes : 061 038 051 degrees QTc Int : 413 ms Normal sinus rhythm Normal ECG Confirmed by BENNETT OGLESBY MD ([id number]), magazine editor PUNEET DOMÍNGUEZ ([id number]) on 09/24/2020 9:26:09 AM Referred By: GURMEET
--- NOTE | 2020-09-21 15:02 | EX.ED.DYSGE1 ---
HPI History of Present Illness Chief Complaint: Chest Pain Informant: patient Onset/Context/Timing Onset: Days Context: Gradual Onset Current Severity: Mild Maximum Severity: Moderate Narrative Narrative: Patient presents secondary to cough. Patient reports developing cough 2 to 3 days ago. No sputum production. No fever. She was seen in urgent care and given Singulair along with prednisone. She reports having to leave work early last night secondary to cough and was told she could not return until she was seen by a doctor. She went to urgent care today and was referred to the emergency room when she was complaining of some central chest pain as well. Patient states she has been trying aifp-rgf-cisrwwk allergy medicines without improvement in her symptoms. She did have Covid in April. [facility] Medical History (Updated 09/21/20 @ 17:[address] Ekaterina Anaya MD) Asthma Asthma Home Medications azithromycin 250 mg PO DAILY #4 tab 09/21/20 [Rx Last Taken Unknown] hydrocodone-homatropine [Hycodan] 5 ml PO Q6H PRN 3 Days #60 ml 09/21/20 [Rx Last Taken Unknown] Allergy/AdvReac Type Severity Reaction Status Date / Time morphine AdvReac Vomiting Verified 09/21/20 14:45 pseudoephedrine HCl AdvReac Vomiting Verified 09/21/20 14:45 [From [facility]] Social History Smoking Status: Never smoker alcohol intake: never ROS ROS ED Constitutional Constitutional ED: Denies chills or fever(s) Eyes Eyes: Denies change in vision ENT ENT ED: Denies sore throat Cardiovascular Cardiovascular: Reports chest pain Respiratory/Chest Respiratory/Chest: Reports cough; Denies dyspnea or sputum Gastrointestinal Gastrointestinal: Denies abdominal pain, diarrhea, nausea or vomiting Genitourinary Genitourinary ED: Denies dysuria Musculoskeletal Musculoskeletal: Denies back pain Integumentary Denies rash Neurologic Neurologic: Denies headache(s) or weakness Psychiatric Psychiatric: Denies anxiety or depression Endocrine Endocrinology: Denies polydipsia or polyuria Allergic/Immunologic Allergic/Immunologic ED: Denies urticaria EXAM Physical Exam Const Vital Signs: 09/21/20 14:43 09/21/20 17:05 09/21/20 18:09 Temperature 98.9 F Temperature Source Temporal Pulse Rate 81 77 76 Respiratory Rate 17 16 16 Blood Pressure 114/62 106/65 101/64 Blood Pressure Mean 79 78 Pulse Ox 97 98 99 Oxygen Delivery Method Room Air Room Air Positive well nourished and well developed General Appearance ED: well developed HEENT Reports normocephalic, head/scalp atraumatic and moist mucous membranes HEENT Narrative: Normal posterior pharynx Eyes PERRL and EOMs intact bilaterally Neck supple Lymph Lymphatic Narrative: No cervical lymphadenopathy. Chest Wall inspection of chest normal and palpation of chest normal Resp normal respiratory effort and clear to auscultation bilaterally Cardio regular rate and regular rhythm GI normal to inspection, nondistended, normoactive bowel sounds Palpation: soft Back/Spine no CVA tenderness Extremity normal to inspection Neuro oriented x3 and no sensory deficits noted Sensorium / Orientation: alert Motor Exam: strength 5/5 throughout Psych mental status grossly normal Skin no rashes or lesions noted MDM MDM MDM Narrative Medical decision making narrative: Patient was given Hycodan cough syrup along with Tylenol for headache. Lab Data Attestation: I reviewed the patient's lab results. Labs: Laboratory Results - last 24 hr 09/21/20 09/21/20 09/21/20 15:08 15:08 15:08 WBC 9.9 RBC 3.99 L Hgb 11.8 L Hct 37.2 MCV 93.2 MCH 29.6 MCHC 31.7 L RDW Std Deviation 42.7 RDW Coeff of Dionne 12.4 Plt Count 295 MPV 9.5 Immature Gran % (Auto) 0.900 Neut % (Auto) 83.7 H Lymph % (Auto) 12.9 L [place] % (Auto) 2.2 Eos % (Auto) 0.1 Baso % (Auto) 0.2 Absolute Neuts (auto) 8.3 H Absolute Lymphs (auto) 1.28 Nucleated RBC % 0 D-Dimer Quant (PE/DVT) 0.38 Sodium 141 Potassium 4.1 Chloride 106 Carbon Dioxide 27.0 Anion Gap 8 BUN 13 Creatinine 0.74 Estim Creat Clear Calc 87.92 Est GFR (MDRD) Af Amer 118 Est GFR (MDRD) Non-Af 97 BUN/Creatinine Ratio 17.5 Glucose 121 H Calcium 8.9 Radiography Chest X-Ray - ED: 1 View, Read by ED Physician, Normal, Heart, Lungs and Mediastinum Diagnostic Testing: Radiology Impression Chest X-Ray 09/21/20 15:15 IMPRESSION: No active pulmonary disease. Electronically Signed: Ternton Andrea MD at 15:33 EDT Tel , Service support , EKG Initial EKG: Attestation: I personally reviewed and interpreted this EKG as follows: Interpretation: Sinus Rhythm (Sinus at 90 with no acute ischemia.) Prior EKG tracings: available for review Prior: Unchanged Treatment and Re-Evaluation Comments:: On repeat evaluation patient resting comfortably. Test results discussed with her. D-dimer is negative. Chest x-ray per my interpretation was no focal infiltrate. Radiologist interpretation is reviewed. Patient will be treated with course of Zithromax. She will be given Hycodan syrup. She is written off work tomorrow and can return to work on Wednesday. Discharge Plan Triage Chief Complaint: Chest Pain ED Provider: Ekaterina Anaya Dx/Rx/DC Orders Clinical Impression: Bronchitis Instructions: ED Upper Resp Infec Abx Tx Prescriptions: New hydrocodone-homatropine [Hycodan] 5-1.5 mg/5 mL (5 mL) syrup 5 ml PO Q6H PRN (Reason: cough) 3 Days Qty: 60 RF: 0 azithromycin 250 mg tablet 250 mg PO DAILY Qty: 4 RF: 0 Stand Alone Forms: ED Work / School Excuse Primary Care Provider: Drake Whiting Referrals: Drake Whiting, DO [Primary Care Provider] - 1 Week if not improving Disposition Disposition: Home, self care Discharge Date/Time: 09/21/20 18:12
--- NOTE | 2020-09-21 15:15 | RAD_ITS ---
STUDY: X-RAY CHEST REASON FOR EXAM: Female, 30 years old. Cough. TECHNIQUE: Single AP portable view of the chest. COMPARISON: 05/11/2019. FINDINGS: The lungs are clear and expanded. There is no demonstrated pleural abnormality. Normal size heart. Normal mediastinum and devin. Normal visualized pulmonary arteries. Normal visualized aortic arch and descending thoracic aorta. Normal visualized thoracic spine. Normal visualized ribs, clavicles, and shoulders. There is no demonstrated abnormality of the visualized soft tissue structures of the upper abdomen. RAD/Chest 1 View (Portable) IMPRESSION: No active pulmonary disease. Electronically Signed: Trenton Andrea MD at 15:33 EDT Tel , Service support ,
[2020-09-21 15:18] LABS: Absolute Lymphocyte Count 1.28 X10^3/uL (0.83-4.51); Absolute Neutrophil Count 8.3 X10^3/uL (2.0-7.7); Basophil# 0.02 X10^3/uL; Basophil% 0.2 % (0-1); Eosinophil# 0.01 X10^3/uL; Eosinophils% 0.1 % (0-5); Hematocrit 37.2 % (37-47); Hemoglobin 11.8 g/dL (12.0-15.0); Lymphocyte # 1.28 X10^3/ul (0.83-4.51); Lymphocyte % 12.9 % (19-41); Mean Corp Hgb Conc 31.7 g/dL (32-36); Mean Corpuscular Hgb 29.6 pg (27.0-32.0); Mean Corpuscular Volume 93.2 fL (81-99); Mean Platelet Vol. 9.5 fl (6.2-12.0); Monocyte# 0.22 X10^3/uL; Monocyte% 2.2 % (0-10); NRBC Flagged by Analyzer 0 % (0-5); Neutrophil # 8.28 X10^3/uL (2.7-7.7); Neutrophil % 83.7 % (47-70); Platelet Count 295 K/mm3 (150-450); RBC Distribution Width CV 12.4 % (11.6-14.6); RBC Distribution Width SD 42.7 fl (35.1-43.9); Red Blood Count 3.99 M/mm3 (4.2-5.4); White Blood Count 9.9 K/mm3 (4.4-11.0)
[2020-09-21 15:32] LABS: Anion Gap 8 (5-15); BUN 13 mg/dL (7-18); BUN/Creat Ratio 17.5 RATIO (10-20); Calcium,Total 8.9 mg/dL (8.5-10.1); Chloride 106 mmol/L (98-107); Creatinine, Serum 0.74 mg/dL (0.55-1.02); EST Glomerular Filtration Rate 97 mL/min (>60); Est Glom Filt Rate - Afr Amer 118 mL/min (>60); Estimated Creatinine Clearance 87.92 ml/min; Glucose 121 mg/dL (74-106); Potassium 4.1 mmol/L (3.5-5.1); Sodium Level 141 mmol/L (136-145)
[2020-09-21 15:37] LABS: D-Dimer Quantitative (DVT/PE) 0.38 FEU/ug/m (0.27-0.49)
[2020-09-21 17:05] VITALS: BP 106/65; PULSE 77; RESP 16; O2SAT 98
[2020-09-21] MEDS: Acetaminophen 500 MG Tablet 1000 MG PO (17:05)
[2020-09-21] MEDS: Azithromycin 250 MG Tablet 500 MG PO (18:08)
[2020-09-21 18:09] VITALS: BP 101/64; PULSE 76; RESP 16; O2SAT 99
== END 2020-09-21 18:12 | disposition home or self-care (01) ==
PROVIDERS: Emergency Provider Emergency Medicine; PCP Student in an Organized Health Care Education/Training Program
DX: J40 Bronchitis, not specified as acute or chronic (principal); Z86.16 Personal history of COVID-19
CPT/HCPCS: 71045; 80048; 85025; 85379; 93005; 99283

== ENCOUNTER 2020-12-22 12:19 | Emergency (ER) | payer OTHER, MEDICAID, SELFPAY ==
[2020-12-22 12:20] VITALS: BP 122/71; PULSE 93; RESP 16; TEMP 36.5; O2SAT 98; BMI 33.8
--- NOTE | 2020-12-22 13:02 | EDS_ITS ---
HPI History of Present Illness Chief Complaint: Abd Pain Informant: patient Narrative Narrative: Patient is a 30-year-old female who presents to the emergency department for multiple complaints. She has been nauseous and vomiting with right upper quadrant abdominal pain over the past day. She has had body aches, headache. She developed a cough today. She has been vaccinated for Covid and has had the infection previously. 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 She has been treating her self at home with ibuprofen and Tylenol which is not giving her significant relief. She has not been able to keep anything down since yesterday. She went to urgent care who referred her to the emergency department due to abdominal pain. She does have a history of cholecystectomy. No known aggravating or relieving factors for her abdominal pain. She describes the pain as moderate. It does not radiate. Patient denies any urinary symptoms. No change in bowel movements. [facility] Medical History (Updated 12/22/20 @ 15:[address] Ganesh Barrett DO) Asthma Asthma Home Medications cholecalciferol (vitamin D3) [Vitamin D3] 10 mcg PO DAILY 12/22/20 [History Last Taken Unknown] ondansetron 4 mg PO Q8H PRN 4 Days #10 tab 12/22/20 [Rx Last Taken Unknown] Allergy/AdvReac Type Severity Reaction Status Date / Time morphine AdvReac Vomiting Verified 12/22/20 12:20 pseudoephedrine HCl AdvReac Vomiting Verified 12/22/20 12:20 [From [facility]] Social History Smoking Status: Never smoker alcohol intake: never ROS ROS ED Constitutional Constitutional ED: Reports chills; Denies fever(s) Eyes Eyes: Denies change in vision ENT ENT ED: Reports sore throat; Denies epistaxis or rhinorrhea Cardiovascular Cardiovascular: Denies chest pain or palpitations Respiratory/Chest Respiratory/Chest: Reports cough; Denies dyspnea, dyspnea on exertion or sputum Gastrointestinal Gastrointestinal: Reports abdominal pain, nausea and vomiting; Denies constipation or diarrhea Genitourinary Genitourinary ED: Denies dysuria, hematuria or urinary frequency Musculoskeletal Musculoskeletal: Reports myalgias; Denies back pain or neck pain Integumentary Denies rash Neurologic Neurologic: Denies dizziness or weakness EXAM Physical Exam Const Vital Signs: 12/22/20 14:37 12/22/20 16:14 Pulse Rate 70 70 Respiratory Rate 16 16 Blood Pressure 98/58 L 100/66 Blood Pressure Mean 71 Pulse Ox 99 100 Oxygen Delivery Method Room Air Positive well nourished and well developed General Appearance ED: well developed and NAD HEENT Reports normocephalic and head/scalp atraumatic Eyes PERRL and EOMs intact bilaterally Neck supple Chest Wall inspection of chest normal Resp normal respiratory effort and clear to auscultation bilaterally Auscultation: Negative for rales, rhonchi or wheezes Cardio regular rate, regular rhythm and no murmurs GI normal to inspection, nondistended, normoactive bowel sounds GI Narrative: Tenderness to right upper quadrant. No pain over McBurney's point. Palpation: soft; Negative for guarding or rebound tenderness present Extremity normal to inspection General Extremety ED: Negative for edema or tenderness General Extremity: Negative for edema Neuro Sensorium / Orientation: alert Motor Exam: strength 5/5 throughout Psych mental status grossly normal Skin no rashes or lesions noted MDM MDM MDM Narrative Medical decision making narrative: Patient presents to the emergency department for nausea/vomiting abdominal pain. She developed a cough today. She is had a headache and chills. On arrival to the emergency department vital signs within normal limits. Will check Covid swab as well as basic lab work. She will be started IV fluids and given a dose of Bentyl. On reexamination patient's nausea is much improved. No episodes of vomiting throughout ED stay. Her lipase was mildly elevated so CT scan was obtained. This did not show any acute intra-abdominal pathology. The rest of her lab work was unremarkable for significant acute abnormality. This time will discharge home in stable condition. She is given a work excuse for the next 2 days. Her Covid test was negative. She is to follow-up with her PCP. If she develops any worsening symptoms she can return to the emergency department at anytime for reevaluation. Lab Data Labs: Laboratory Results - last 24 hr 12/22/20 12/22/20 12/22/20 12:35 12:42 12:42 WBC 7.6 RBC 3.97 L Hgb 11.5 L Hct 35.9 L MCV 90.4 MCH 29.0 MCHC 32.0 RDW Std Deviation 41.2 RDW Coeff of Dionne 12.5 Plt Count 293 MPV 9.4 Immature Gran % (Auto) 0.300 Neut % (Auto) 64.5 Lymph % (Auto) 28.7 [place] % (Auto) 5.5 Eos % (Auto) 0.7 Baso % (Auto) 0.3 Absolute Neuts (auto) 4.9 Absolute Lymphs (auto) 2.19 Nucleated RBC % 0 Sodium 139 Potassium 4.0 Chloride 108 H Carbon Dioxide 26.0 Anion Gap 5 BUN 12 Creatinine 0.61 Estim Creat Clear Calc 106.66 Est GFR (MDRD) Af Amer 147 Est GFR (MDRD) Non-Af 121 BUN/Creatinine Ratio 19.5 Glucose 82 Calcium 8.5 Total Bilirubin 0.30 AST 20 ALT 43 Alkaline Phosphatase 109 Total Protein 7.3 Albumin 3.4 Globulin 3.9 Albumin/Globulin Ratio 0.9 Lipase 504 H Urine Color Yellow Urine Clarity Clear Urine pH 6.0 Ur Specific [place] 1.020 Urine Protein Negative Urine Glucose (UA) Normal Urine Ketones Negative Urine Occult Blood Negative Urine Nitrite Negative Urine Bilirubin Negative Urine Urobilinogen Normal Ur Leukocyte Esterase 100 H Urine RBC 0 SEEN Urine WBC 0 SEEN Ur Squamous Epith Cells 0-5 SEEN Urine Bacteria 0 SEEN Urine Mucus 0 SEEN Urine Test Negative Radiography Diagnostic Testing: Radiology Impression Abdomen/Pelvis CT 12/22/20 13:51 IMPRESSION: Normal enhanced CT of the abdomen and pelvis. Electronically Signed: Silvio Daugherty MD at 14:36 EDT Tel , Service support , Discharge Plan Triage Chief Complaint: Abd Pain ED Provider: Ganesh Barrett Dx/Rx/DC Orders Clinical Impression: Abdominal pain, Nausea & vomiting, Headache Instructions: Abdominal Pain, ED Vomiting (Adult) Prescriptions: New ondansetron 4 mg tablet,disintegrating 4 mg PO Q8H PRN (Reason: nausea and vomiting) 4 Days Qty: 10 RF: 0 No Action cholecalciferol (vitamin D3) [Vitamin D3] 10 mcg (400 unit) Capsule 10 mcg PO DAILY RF: 0 Primary Care Provider: Drake Whiting Referrals: Drake Whiting, [Primary Care Provider] - 3-5 Days if not improving Disposition Disposition: Home, Self Care Discharge Date/Time: 12/22/20 16:15
[2020-12-22 13:08] LABS: Bacteria 0 SEEN /hpf (None Seen); Mucous, Urine 0 SEEN /hpf (<or=2+); Red Blood Cells-Urine 0 SEEN /hpf (0-5); White Blood Cells 0 SEEN /hpf (0-5)
[2020-12-22 13:09] LABS: Absolute Lymphocyte Count 2.19 X10^3/uL (0.83-4.51); Absolute Neutrophil Count 4.9 X10^3/uL (2.0-7.7); Basophil# 0.02 X10^3/uL; Basophil% 0.3 % (0-1); Eosinophil# 0.05 X10^3/uL; Eosinophils% 0.7 % (0-5); Hematocrit 35.9 % (37-47); Hemoglobin 11.5 g/dL (12.0-15.0); Lymphocyte # 2.19 X10^3/ul (0.83-4.51); Lymphocyte % 28.7 % (19-41); Mean Corpuscular Volume 90.4 fL (81-99); Mean Platelet Vol. 9.4 fl (6.2-12.0); Monocyte# 0.42 X10^3/uL; Monocyte% 5.5 % (0-10); NRBC Flagged by Analyzer 0 % (0-5); Neutrophil # 4.94 X10^3/uL (2.7-7.7); Neutrophil % 64.5 % (47-70); Platelet Count 293 K/mm3 (150-450); RBC Distribution Width CV 12.5 % (11.6-14.6); RBC Distribution Width SD 41.2 fl (35.1-43.9); Red Blood Count 3.97 M/mm3 (4.2-5.4); White Blood Count 7.6 K/mm3 (4.4-11.0)
[2020-12-22 13:10] LABS: Color, Urine Yellow (Yellow); Glucose, Dipstick Normal (Normal); Ketone-Dipstick Negative (Negative); Leukocyte Esterase-Dipstick 100 /ul (Negative); Nitrite-Dipstick Negative (Negative); Occult Blood-Urine Negative /ul (Negative); Protein-Dipstick Negative (Negative); Urine Bilirubin Dipstick Negative (Negative); Urine Clarity Clear (Clear); Urine Urobilinogen Normal (Normal)
[2020-12-22 13:18] LABS: Internal QC Validated? YES +Cl - CLEAR BKGD; Pregnancy, Urine Negative Negative; Squamous Epithelial Cells - UA 0-5 SEEN /hpf (5-10)
[2020-12-22 13:22] LABS: ALB/GLOB Ratio 0.9 RATIO (0.9-2.4); AST(SGOT) 20 U/L (15-37); Alanine Aminotransfer ALT/SGPT 43 U/L (13-56); Albumin, Serum 3.4 g/dL (3.2-5.0); Alkaline Phosphatase 109 U/L (45-117); Anion Gap 5 (5-15); BUN 12 mg/dL (7-18); BUN/Creat Ratio 19.5 RATIO (10-20); Calcium,Total 8.5 mg/dL (8.5-10.1); Chloride 108 mmol/L (98-107); Creatinine, Serum 0.61 mg/dL (0.55-1.02); EST Glomerular Filtration Rate 121 mL/min (>60); Est Glom Filt Rate - Afr Amer 147 mL/min (>60); Estimated Creatinine Clearance 106.66 ml/min; Globulin 3.9 g/dL (2.2-4.2); Glucose 82 mg/dL (74-106); Lipase 504 U/L (73-393); Protein, Total 7.3 g/dL (6.4-8.2); Sodium Level 139 mmol/L (136-145)
[2020-12-22] MEDS: 0.9% Normal Saline 1,000 ML 1000 ML IV (13:27)
[2020-12-22] MEDS: Dicyclomine 10 MG Capsule PO (13:27)
[2020-12-22] MEDS: Ondansetron 4 MG/2 ML Vial IV (13:27)
--- NOTE | 2020-12-22 13:51 | CT_ITS ---
STUDY: CT ABDOMEN AND PELVIS WITH CONTRAST REASON FOR EXAM: Female, 30 years old. Eval for pancreatitis RADIATION DOSAGE (If Supplied By Facility): CTDIvol = ( 14.50 ) mGy, DLP = ( 958.93 ) mGycm TECHNIQUE: Transaxial images were obtained from the dome of the diaphragm to the symphysis pubis without oral contrast. IV 100mL Isovue-370 was administered. Sagittal and coronal images were reconstructed. Individualized dose optimization techniques were used for this CT. COMPARISON: None. FINDINGS: The visualized lung bases are unremarkable. The visualized portions of the heart are within normal limits. Normal liver. There is non-visualization of the gallbladder, which may be secondary to either contraction or a prior cholecystectomy. Normal spleen. Normal pancreas. Normal bilateral adrenal glands. Normal right kidney. Normal left kidney. Normal visualized stomach. Normal small intestine. Normal colon. The appendix is visualized and appears normal. Normal abdominal aorta. Normal inferior vena cava. Normal retroperitoneum. Normal urinary bladder. There is a small umbilical hernia containing fat. Normal osseous structures. CT/Abdomen/Pelvis W IV Cont ONLY IMPRESSION: Normal enhanced CT of the abdomen and pelvis. Electronically Signed: Silvio Daugherty MD at 14:36 EDT Tel , Service support ,
[2020-12-22] MEDS: Ketorolac 30 MG/ML Syringe IV (14:06)
[2020-12-22 14:37] VITALS: BP 98/58; PULSE 70; RESP 16; O2SAT 99
[2020-12-22 16:14] VITALS: BP 100/66; PULSE 70; RESP 16; O2SAT 100
== END 2020-12-22 16:15 | disposition home or self-care (01) ==
PROVIDERS: Emergency Provider Emergency Medicine; PCP Student in an Organized Health Care Education/Training Program
DX: R10.9 Unspecified abdominal pain (principal); R11.2 Nausea with vomiting, unspecified; R51.9 Headache, unspecified; R05 Cough; J45.909 Unspecified asthma, uncomplicated; Z90.49 Acquired absence of other specified parts of digestive tract
CPT/HCPCS: 74177; 80053; 81001; 81025; 83690; 85025; 87426; 96361; 96374; 96375; 99284; J7030; Q9967; A4216; J2405

== ENCOUNTER → 2021-01-30 15:03 | Outpatient (CLI) | payer OTHER, MEDICAID, SELFPAY | PROVIDERS: PCP Student in an Organized Health Care Education/Training Program; Referring Provider Physician Assistant; Visit Provider Physician Assistant | DX: Z11.52 Encounter for screening for COVID-19 (principal) | CPT/HCPCS: 87635; U0005; U0003 ==

== ENCOUNTER 2022-01-15 09:26 | Day surgery (SDC) | payer OTHER, MEDICAID, SELFPAY ==
[2022-01-15] VITALS (8 sets, daily range): BP systolic 91–115; BP diastolic 61–82; PULSE 71–85; RESP 16; TEMP 36.3–36.6; O2SAT 90–100; BMI 35.0
[2022-01-15] MEDS: Lactated Ringers 1,000 ML 15 ML IV (10:04)
[2022-01-15 10:11] LABS: Internal QC Validated? YES +Cl - CLEAR BKGD; Pregnancy, Urine Negative Negative
[2022-01-15 10:11] LABS: Hemoglobin 12.4 g/dL (12.0-15.0); Mean Corp Hgb Conc 32.6 g/dL (32-36); Mean Corpuscular Hgb 29.7 pg (27.0-32.0); Mean Corpuscular Volume 90.9 fL (81-99); Mean Platelet Vol. 9.1 fl (6.2-12.0); Platelet Count 292 K/mm3 (150-450); RBC Distribution Width CV 12.5 % (11.6-14.6); RBC Distribution Width SD 41.6 fl (35.1-43.9); Red Blood Count 4.18 M/mm3 (4.2-5.4); White Blood Count 7.1 K/mm3 (4.4-11.0)
[2022-01-15] MEDS: Cefazolin 2 GM in 0.9% Normal Saline 100 ML IV (11:05)
--- NOTE | 2022-01-15 11:05 | FALS_PTH ---
PATIENT: SHOSHANA GUILLEN [place] [facility] [id number] AGE/SX: 31/F ROOM: RE01/15/[address]: Dr. Annia Toledo, MDDOB: 1990 BED: DIS: 01/15/2022 SPEC #: [id number] RECD: 01/15/22 15:40 STATUS: GORDON CHRISTOFER #: [id number] SAMANTA: 01/15/22 11:[address]: Annia Toledo DEPT: SURGICAL PATHOLOGY RECD BY: Inez Mcclure ENTERED: 01/16/22 08:09 SP TYPE: FALL TUBES OTHR DR: Dr. Drake Whiting, DO Tissues: Fallopian tube Procedures: Surgery Specimen Level II HEADER OPERATION: Laparoscopic salpingectomy, umbilical hernia repair PRE-OP DIAGNOSIS: Sterilization, umbilical hernia TISSUE SUBMITTED: Bilateral fallopian tubes MICROSCOPIC DIAGNOSIS Bilateral fallopian tubes, salpingectomy: Bilateral fallopian tubes, no pathologic diagnosis. FRANCINE:jorge 01/19/2022 MICROSCOPIC DESCRIPTION Slides are reviewed. GROSS DESCRIPTION Received in fixative is one container labeled with the patient's name and designated bilateral fallopian tubes. The specimen consists of bilateral fallopian tubes including fimbrial ends measuring 3.5 cm in length and 0.5 cm in diameter and 4.5 cm in length and 0.5 cm in diameter. The fallopian tubes are not identified as right or left. Sections reveal unremarkable cut surfaces. Marketing Copywriter sections are submitted in two cassettes with each cassette containing one fallopian tube. / FRANCINE:jorge 01/16/2022 TC:4 CPT: 64523 x2
[2022-01-15] MEDS: Bupivacaine 0.25% 30 ML Vial (11:20)
--- NOTE | 2022-01-15 12:32 | OP.PCM_ITS ---
Report of Operation Date of Procedure: 01/15/22 Pre-Operative Diagnosis: Desires sterilization, Umbilical hernia Post-Operative Diagnosis: Same Surgery/Procedure Performed:: Laparoscopic bilateral salpingectomy, Repair of umbilical hernia Description of Surgical Findings:: 3cm umbilical hernia with fat contents - confirmed by ct scan- recommendation by GEN surgery for repair with PDS suture. Normal tubes, ovaries and uterus. Surgeon: Annia Toledo switching operator: Bhupendra olvera Type of Anesthesia: General and Local Special Medications: 0.25% marcaine Specimen's removed: bilateral fallopian tubes Drains: none Estimated Blood Loss (mL): 5cc Fluids Replaced: 1100 Description of Procedure: Ancef 2 grams administered. After informed consent was obtained patient was taken to the operating room she was placed in supine position she was given anesthesia. She was then placed in the [facility] stirrups and she was prepped and draped in normal sterile fashion. Bladder was drained prior to the start of procedure. At this time attention was turned to the vaginal portion where weighted speculum placed at posterior fornix vagina single-tooth tenaculum was used to gently grasp the internal the cervix. uterus was gently sounded to approximately 8 cm. Uterine manipulator was placed without difficulty. Legs then placed in parallel with the abdomen the tenaculum and the weighted speculum were removed. 0.25% Marcaine was injected. Small incision was made with a knife the fascia was grasped with Katt's. Fascia was then incised with the scalpel. 1-0 PDS suture was placed to tag both sides of the fascia. At this time the 10 mm on trocar was placed and secured. CO2 gas was used to insufflate the intra-abdominal cavity. Upon inspection no gross abnormalities appreciated- the uterus tubes and ovaries appeared to be normal. At this time then the LLQ and RLQ ports were placed First Marcaine was injected and small incision was made a knife and the 5 mm trocars were placed. At this time then tubes were traced back to the fimbriated ends. Enseal was used to coagulate and ligate along mesosalpinx bilaterally until tubes removed completely. Good hemostasis w as appreciated. At this time procedure was deemed complete successful. The gas was desufflated on from the intra-abdominal cavity. At this time the umbilical incision was then extended inferiorly to approximately 3 cm. The fascia was incised and the fat was bluntly removed at this time then the fascia was reapproximated using 1-0 PDS suture in an interrupted [id number] fashion. At this time then the lower ports were used to reinsufflated intra-abdominal cavity and the umbilical hernia site reapproximation was evaluated. Good hemostasis and no fat contents appeared. The trochars were removed. The local incisional hernia site was repaired using 3-0 Vicryl to close the subcutaneous space in an interrupted fashion followed by the subcuticular stitch. Other two Skin was closed using 4-0 Monocryl in a subcutaneous fashion. Dermabond glue was placed. Instrument lap and needle counts were correct ?2. The uterine manipulator was removed. Vaginal sweep was performed it was negative. There were no complications anticipated normal postoperative course for this patient. Medical student Ba Shoemaker assisted with manipulation of the camera as well as retraction during umbilical hernia repair. Grafts/Implants Used: none Procedure Start Time: 11:48 Procedure Stop Time: 12:31 Complications none Admit VTE Documentation VTE Present on Admission: Yes VTE Mechan Device Prophylaxis: SCD's VTE Pharm Prophylaxis ordered?: No Reason prophylaxis not ordered:: Procedure Not Indicated
--- NOTE | 2022-01-15 12:41 | DCINST_ITS ---
Discharge Instructions Procedure Other Diet Discharge Diet: No restrictions Activity May resume sexual activity in: 2 weeks Lifting Restrictions: 20-25 lbs Dressing / Incision Call your doctor if your incision/area has: Continuous Slow Oozing, Sudden Increased Bleeding, Increased Pain/ Swelling, Increased Redness, Foul Smelling Discharge and Swelling at the incision site Call your doctor if you observe: Fever of 101 or Higher, Inability to urinate, Inability to have a bowel movement, Using more than 1 pad per hour and Uncontrolled pain Additional Dressing/Incision Instructions:: You have skin glue over your incision sites, do not pick off. You may shower and let the soap and water run over the incision sites and dab dry. Follow Up Care Please Follow Up With: Annia Toledo MD When: 1-2 weeks post OP if you need an appointment please call [phone] Test Results: Test results from this visit will be discussed in further detail at your follow- up appointment, if applicable. Discharge Plan Admission Attending Provider: Annia Toledo Primary Care Provider: Drake Whiting Discharge Orders/Prescriptions Prescriptions: No Action cholecalciferol (vitamin D3) [Vitamin D3] 10 mcg (400 unit) Capsule 10 mcg PO DAILY ondansetron 4 mg tablet,disintegrating 4 mg PO Q8H PRN (Reason: nausea and vomiting) 4 Days Qty: 10 0RF budesonide 3 mg capsule,delayed,extend.release 3 mg PO TID Label Comments: take 3 capsules by mouth once daily for 30 DAYS, THEN DECREASE TO... (REFER TO PRESCRIPTION NOTES). albuterol sulfate 90 mcg/actuation HFA aerosol inhaler 1 - 2 inh INHALATION PRN PRN (Reason: ASTHMA) Label Comments: inhale 2 puffs by mouth and INTO THE LUNGS every 2 hours if neede... (REFER TO PRESCRIPTION NOTES). dicyclomine 10 mg capsule 10 mg PO PRN PRN (Reason: ABD PAIN) Label Comments: take 1 capsule by mouth three times a day if needed for abdominal pain mesalamine [Pentasa] 500 mg capsule, extended release 1,000 mg PO 4X/DAY Slow Release Iron 142 mg (45 mg iron) tablet extended release 45 mg PO BID Label Comments: take 1 tablet by mouth twice a day with meals Referrals / Follow Up: Drake Whiting, DO [Primary Care Provider] - Disposition Disposition (needs filled in before D/C Order can be placed): Home, Self Care
[2022-01-15] MEDS: Scopolamine 1mg/72hr Patch 1 PATCH TD (14:50)
[2022-01-15] MEDS: Acetaminophen 500 MG Tablet 1000 MG PO (14:50)
== END 2022-01-15 15:30 | disposition home or self-care (01) ==
LOC: SDC 09:31 → AC 09:32
PROVIDERS: Anesthesiology; PCP Student in an Organized Health Care Education/Training Program; Referring Provider Obstetrics & Gynecology; Visit Provider Obstetrics & Gynecology
PROC: (CPT 58661; principal; 2022-01-15 10:50)
DX: Z30.2 Encounter for sterilization (principal); K42.9 Umbilical hernia without obstruction or gangrene; J45.909 Unspecified asthma, uncomplicated; D64.9 Anemia, unspecified
CPT/HCPCS: 58661; 49585; 00830; 81025; 85027; 88302; J7120; C1760; J2405

== ENCOUNTER → 2023-02-22 | Outpatient (CLI) | payer MEDICAID, SELFPAY ==
[2023-02-22 11:22] LABS: Absolute Lymphocyte Count 2.44 X10^3/uL (0.83-4.51); Absolute Neutrophil Count 2.8 X10^3/uL (2.0-7.7); Basophil# 0.02 X10^3/uL; Basophil% 0.4 % (0-1); Eosinophil# 0.04 X10^3/uL; Eosinophils% 0.7 % (0-5); Hematocrit 36.9 % (37-47); Hemoglobin 11.5 g/dL (12.0-15.0); Lymphocyte # 2.44 X10^3/ul (0.83-4.51); Lymphocyte % 42.8 % (19-41); Mean Corp Hgb Conc 31.2 g/dL (32-36); Mean Corpuscular Hgb 29.9 pg (27.0-32.0); Mean Corpuscular Volume 96.1 fL (81-99); Mean Platelet Vol. 9.6 fl (6.2-12.0); Monocyte# 0.39 X10^3/uL; Monocyte% 6.8 % (0-10); NRBC Flagged by Analyzer 0 % (0-5); Neutrophil # 2.79 X10^3/uL (2.7-7.7); Neutrophil % 48.9 % (47-70); Platelet Count 286 K/mm3 (150-450); RBC Distribution Width SD 42.2 fl (35.1-43.9); RET-HE 34.2 pg (30-35); Red Blood Count 3.84 M/mm3 (4.2-5.4); Reticulocyte Count 1.68 % (0.5-1.5); White Blood Count 5.7 K/mm3 (4.4-11.0)
[2023-02-22 11:25] LABS: Erythrocyte Sedimentation Rate 12 mm/hr (0-30)
[2023-02-22 11:52] LABS: Vitamin B12 735 pg/mL (211-911)
[2023-02-22 12:09] LABS: ALB/GLOB Ratio 0.8 RATIO (0.9-2.4); AST(SGOT) 8 U/L (15-37); Alanine Aminotransfer ALT/SGPT 19 U/L (13-56); Albumin, Serum 3.4 g/dL (3.2-5.0); Alkaline Phosphatase 89 U/L (45-117); Amylase 24 U/L (25-115); Anion Gap 4 (5-15); BUN 11 mg/dL (7-18); BUN/Creat Ratio 15.9 RATIO (10-20); Calcium,Total 8.8 mg/dL (8.5-10.1); Chloride 107 mmol/L (98-107); Creatinine, Serum 0.69 mg/dL (0.55-1.02); EST Glomerular Filtration Rate 104 mL/min (>60); Est Glom Filt Rate - Afr Amer 125 mL/min (>60); Ferritin 58 ng/mL (8-252); Glucose 108 mg/dL (74-106); Iron 66 ug/dL (50-170); Iron Binding Capacity,Total 309 ug/dL (250-450); LDH 137 U/L (84-246); Lipase 32 U/L (13-75); Protein, Total 7.4 g/dL (6.4-8.2); Sodium Level 139 mmol/L (136-145); Thyroid Stim Hormone (TSH) 1.05 uIU/mL (0.358-3.74)
[2023-02-24 12:08] LABS: Anti-Centromere B Ab <0.2 AI (0.0-0.9); Anti-Chromatin <0.2 AI (0.0-0.9); Anti-Jo <0.2 AI (0.0-0.9); Anti-Mitochondrial AB <20.0 Units (0.0-20.0); Anti-Scleroderma-70 AB <0.2 AI (0.0-0.9); Anti-dsDNA Ab 27 IU/mL (0-9); RNP Ab 2.4 AI (0.0-0.9); SJOGREN'S Anti-SS-A test < 0.2 AI (0.0-0.9); SJOGREN'S Anti-SS-B test < 0.2 AI (0.0-0.9); Smith Ab <0.2 AI (0.0-0.9)
[2023-02-25 02:07] LABS: Albumin 3.7 g/dL (2.9-4.4); Alpha-1-Globulins 0.2 g/dL (0.0-0.4); Alpha-2-Globulins 0.7 g/dL (0.4-1.0); Cytoplasmic Ab (C-ANCA) <1:20 titer (Neg:<1:20); Endomysial Antibody IgA Negative (Negative); Gamma Globulin 1.4 g/dL (0.4-1.8); HEPATITIS B SURFACE AG Negative (Negative); Hep C Antibodies Non Reactive (Non Reactive); Hepatitis A IgM Antibody Negative (Negative); Hepatitis B Core AB IgM Negative (Negative); Immunoglobulin A 348 mg/dL (87-352); Immunoglobulin E 88 IU/mL (6-495); Immunoglobulin G 1309 mg/dL (586-1602); Immunoglobulin M 86 mg/dL (26-217); PROEL- TOTAL PROTEIN 7.2 g/dL (6.0-8.5); Perinuclear Ab (P-ANCA) <1:20 titer (Neg:<1:20); QNTFERON TB Mitogen Value > 10.00 IU/mL (.); QNTFERON TB Nil Value 0.23 IU/mL (.); QNTFERON TB1+ Ag Value 0.12 IU/mL (.); QNTFERON TB2+ Ag Value 0.14 IU/mL (.); QNTIFERON TB Positive Criteria Negative (Negative); t-Transglutaminase IgA <2 U/mL (0-3)
[2023-02-28 00:06] LABS: Pancreatic Elastase, Fecal 337 (>200)
[2023-03-01 20:07] LABS: Calprotectin, Stool 61 ug/g (0-120); Fats, Neutral Normal (.); Fats, Total Normal (.)
== END | disposition home or self-care (01) ==
PROVIDERS: PCP Student in an Organized Health Care Education/Training Program; Referring Provider Internal Medicine Gastroenterology; Visit Provider Internal Medicine Gastroenterology
DX: K50.90 Crohn's disease, unspecified, without complications (principal)
CPT/HCPCS: 36415; 80053; 80074; 82150; 82607; 82652; 82653; 82705; 82728; 82746; 82784; 82785; 83036; 83516; 83540; 83550; 83615; 83630; 83690; 83993; 84165; 84443; 85025; 85045; 85652; 86140; 86225; 86235; 86255; 86256; 86334; 86480; 87177; 87209; 87329; 87493; 87506

== ENCOUNTER 2023-04-07 08:41 | Day surgery (SDC) | payer MEDICAID, SELFPAY ==
[2023-04-07] VITALS (7 sets, daily range): BP systolic 96–117; BP diastolic 59–68; PULSE 69–80; RESP 16–17; TEMP 36.3–37.2; O2SAT 98–100; BMI 34.3
[2023-04-07] MEDS: Lactated Ringers 1,000 ML 15 ML IV (09:05)
--- NOTE | 2023-04-07 09:05 | HP.PCM_ITS ---
History and Physical Date of Admission: 04/07/23 SHOSHANA GUILLEN, is a 32 F who presents to the office today for follow up. [facility] established for management of Crohn?s disease. LV 12.03.21 indicates?Pentasa QID and entocort taper?started with improvement of bowel irregularity.?Start Remicade infusions?following biochemical and tubal ligation 01.15.22?EGD and colonoscopy 07.23.21?records requested from [facility]. OV indicates stricture.?CT enterography 08.15.21?mild circumferential hyperenhancement of TI with narrowing of distal TI, caliber 6mm? ? 09.26.22/02.01.23 requested egd/colon and gi records? OV 02.22.23 Pt previously seeing GI in [place]. Would like to establish here due to distance. moderately controlled with Remicaide, Pentasa and as needed Dicyclomine. Still has some abdominal pain and diarrhea. Adjusting diet does help. Sx get worse leading up to next infusion. ? ROS Const Constitutional: No fatigue ENT ENT: No difficulty swallowing Gastro GI: No abdominal pain, belching, bloating, change in bowel habits, change in stool character, coffee ground emesis, constipation, cramping, diarrhea, heartburn, difficulty swallowing, feeling full early, excessive flatus, incontinent of stools, Vomiting blood/hematemesis, Blood in stool, loose stools, Black,tarry stools, nausea/dyspepsia, pain with swallowing, vomiting or other Musc Musculoskeletal: No joint pain Skin Skin: No yellowing of the eye or itchy eyes Psych Psychiatric: No anxiety and No depression Endo Endocrine: No fatigue Aller/Imm Allergy/Immunologic: No itchy eyes Estevan/Lymp Hematologic/Lymphatic: Positive for easy bruising; No easy bleeding Exam Const General: cooperative, healthy appearing, uncomfortable and no acute distress Nutritional Appearance: well nourished Orientation: alert, awake and oriented x3 HENMT Head: normal to inspection Ears: hearing grossly normal bilaterally, external ears normal, TM's normal b ilaterally and EAC's normal Nose: external nose normal, nares normal, septum normal and nasal discharge clear Face and sinus: normal facial exam, sinuses nontender and face symmetric Mouth: oral mucosae normal, lip normal, tongue normal and oropharynx normal Throat: posterior oropharynx normal, tonsils normal, uvula midline and no postnasal drainage Eyes General: appearance normal, both eyes and all related structures Neck Neck: normal visual inspection, full ROM, no lymphadenopathy, no meningeal signs and supple Neck mass: No Thyroid: thyroid normal Lymphatic: no lymphadenopathy noted Chest Chest palpation & inspection: normal inspection of the chest Resp Effort & Inspection: normal respiratory effort, able to speak in complete sentences, symmetric chest movement and cough Quality of cough: dry (Nonproductive in office today) Auscultation: Bilateral: Clear to Auscultation Cardio Palpation: normal PMI Rate: tachycardic Rhythm: regular rhythm Heart Sounds: S1 normal, S2 normal, no gallops, no murmurs and no rubs Pulses: radial pulses present GI Inspection: normal to inspection Palpation: soft and no hepatosplenomegaly Skin General: no rashes or lesions noted Neuro General: patient alert, patient awake, patient oriented x3 and gait normal Cognition: normal cognition Speech: speech normal Gait: normal gait Motor: muscle tone normal throughout Sensory Exam: no sensory deficits noted Psych Appearance: grossly normal Mental Status: mental status grossly normal Mood: congruent mood Affect: normal affect Speech and Movement: speech and movement normal Attitude: cooperative Thought Process: normal Thought Content: normal Judgment: judgment good Quality Reporting Tobacco Screening ([facility] 138) Smoking Status: Never smoker Assessment and Plan Assessment and Plan (1) Crohn's disease: Status: Acute Qualifiers: Gastrointestinal tract location: small and large intestine Digestive disease complication type: without complication Qualified Code(s): K50.80 - Crohn's disease of both small and large intestine without complications Plan: 32-year-old with past medical history of Crohn's disease involving the small intestines but typically the ileum and the right side of the colon including the cecum, ileocecal valve and ascending colon that was seen previously on colonoscopy. She had a CT enterography that also showed some possible narrowing consistent with inflammatory Crohn's disease of the terminal ileum. She does not have any extraintestinal manifestations of Crohn's disease including no findings, pancreatic findings, liver findings, skin findings. She is not having any night sweats or fatigue. She does not know if she has had a updated hepatitis B or Tuberculosis screening. She takes Remicade every 8 weeks at a 5 mg/kg dose and she takes Pentasa 4 times a day at a dose of 500 mg. She notices that she starts getting symptoms With her bowel disease including bloating, cramping, nausea and worsening diarrhea about a week prior to her needing her infusion of Remicade. We will get biochemical testing, capsule endoscopy, possible imaging with MRI enterography or repeat CT enterography. We will also get drug levels of Remicade and antibody levels. Further recommendations to follow. Orders: Orders CBC W/Diff, Automated Today - Crohn's disease, unspecified, without complications Ferritin Today K5. - Crohn's disease, unspecified, without complications NEIL + Protein Elect, Serum Today K5 - Crohn's disease, unspecified, without complications Iron Binding Capacity,Total Today K5 - Crohn's disease, unspecified, without complications LDH Today K5 - Crohn's disease, unspecified, without complications Retic Panel Count Today - Crohn's disease, unspecified, without compli cations Iron Today - Crohn's disease, unspecified, without complications ANCA Today K5 - Crohn's disease, unspecified, without complications Celiac Disease Profile Today K5 - Crohn's disease, unspecified, without complications Comprehensive Metabolic Profil Today K5 - Crohn's disease, unspecified, without complications CRP Today K5 - Crohn's disease, unspecified, without complications Erythrocyte Sed Rate Today K5 - Crohn's disease, unspecified, without complications Hepatitis Panel Acute Today - Crohn's disease, unspecified, without complications Immunoglobulin M Today - Crohn's disease, unspecified, without complications Immunoglobulin G Today - Crohn's disease, unspecified, without complications Immunoglobulin E Today - Crohn's disease, unspecified, without complications Immunoglobulin A Today - Crohn's disease, unspecified, without complications Miscellaneous Lab Procedure Today K5 - Crohn's disease, unspecified, without complications Amylase Today K5 - Crohn's disease, unspecified, without complications Fecal Fat, Qualitative Today - Crohn's disease, unspecified, without complications Pancreatic Elastase, Fecal Today - Crohn's disease, unspecified, without complications Lipase Today K50.90 - Crohn's disease, unspecified, without complications Stool Lactoferrin/WBC Today K50. - Crohn's disease, unspecified, without complications, K58.9 - Irritable bowel syndrome without diarrhea Calprotectin, Stool Today K50. - Crohn's disease, unspecified, without complications JEY Comprehensive Panel Today K50. - Crohn's disease, unspecified, without complications Anti-Mitochondrial AB Today K50. - Crohn's disease, unspecified, without complications Hemoglobin A1c Today K50. - Crohn's disease, unspecified, without compli cations ENTERIC PATHOGEN PANEL STOOL Today K50. - Crohn's disease, unspecified, without complications, K58.9 - Irritable bowel syndrome without diarrhea CDIFF (PCR) Today K50. - Crohn's disease, unspecified, without complications OVA+PARA w/Giardia EIA [id number] Today K50. - Crohn's disease, unspecified, without complications Thyroid Stim Hormone (TSH) Today K50. - Crohn's disease, unspecified, without complications Vitamin D 1,25-Dihydroxy Today K50 - Crohn's disease, unspecified, without complications Folates, (Folic Acid) Today K50. - Crohn's disease, unspecified, without complications Vitamin B12 Today K50. - Crohn's disease, unspecified, without complications Miscellaneous Lab Procedure 2 Today K50. - Crohn's disease, unspecified, without complications Quantiferon TB-Gold+ Today K50. - Crohn's disease, unspecified, without complications Coding Level of Care Code Off vis,new,level 4 Diagnoses Crohn's disease of both small and large intestine without complication K50.80 Gastrointestinal tract location: small and large intestine Digestive disease complication type: without complication I have examined the patient and the H&P has been reviewed. There are no clinical changes since date of exam.
--- NOTE | 2023-04-07 09:45 | EGD_PTH ---
PATIENT: SHOSHANA GUILLEN LOC: EN U#:[id number] AGE/SX: 32/F ROOM: RE04/07/[address]: Dr. Rey Alcaraz DO : 1990 BED: DIS: 04/07/2023 SPEC #: [id number] RECD: 04/07/23 13:57 STATUS: GORDON RECurry #: [id number] SAMANTA: 04/07/23 09:[address]: Rey Alcaraz DEPT: SURGICAL PATHOLOGY RECD BY: Inez Mcclure ENTERED: 04/08/23 10:43 SP TYPE: EGD BIOPSY OT DR: Dr. Drake Whiting DO Tissues: A - Duodenum, NOS B - Esophagus, NOS C - Ileum, NOS Procedures: Special Stain Group II Surgery Specimen Level IV Alcian Blue/PAS (control) HEADER OPERATION: Colonoscopy with biopsy, EGD with biopsy PRE-OP DIAGNOSIS: Crohn's disease TISSUE SUBMITTED: A - Duodenum biopsy, B - Distal esophagus biopsy, C - Terminal ileum biopsy MICROSCOPIC DIAGNOSIS A. Duodenum, biopsy: No pathologic change. B. Distal esophagus, biopsy: Fragments of gastric mucosa with chronic inflammation. No evidence of goblet cell metaplasia. See comment. C. Terminal ileum, biopsy: No pathologic change. AM:jorge 04/09/2023 COMMENT B. Alcian blue/PAS stain with matched control supports the above diagnosis. MICROSCOPIC DESCRIPTION Slides are reviewed. GROSS DESCRIPTION A - Received in fixative is one container labeled with the patient's name and designated duodenum biopsy. The specimen consists of two irregular fragments of light cortes soft tissue that in aggregate measure 0.7 x 0.7 x 0.1 cm. The specimen is totally submitted in one cassette. B - Received in fixative is one container labeled with the patient's name and designated distal esophagus biopsy. The specimen consists of two irregular fragments of light cortes soft tissue that in aggregate measure 0.6 x 0.5 x 0.1 cm. The specimen is totally submitted in one cassette. C - Received in fixative is one container labeled with the patient's name and designated terminal ileum biopsy. The specimen consists of one irregular fragment of light cortes soft tissue that measures 0.5 x 0.3 x 0.1 cm. The specimen is totally submitted in one cassette. / AM:jorge 04/08/2023 TC:3 CPT: 99382 x3, 01430
--- NOTE | 2023-04-07 10:15 | OP.CCLET_ITS ---
04/07/2023 Drake Whiting [address] [place] [address] Re : Upper GI endoscopy procedure for Mary Ruiz Dear Dr. Whiting This procedure was performed on Friday, April 07, 2023. My impressions and recommendations are as follows: Impressions : - Z-line irregular, 39 cm from the incisors. Biopsied. - Normal stomach. - Non-bleeding duodenal ulcer with no stigmata of bleeding. Biopsied. Recommendations : - Discharge patient to home. - Resume previous diet. - Continue present medications. - Await pathology results. My findings are described in the full procedure note, which is enclosed. If I can be of further assistance, please feel free to contact me at . Sincerely, Rey Alcaraz, 04/07/2023 10:15:20 AM This report has been signed electronically.
--- NOTE | 2023-04-07 10:15 | OP.EGD_ITS ---
Patient Name: Mary Ruiz Procedure Date: 04/07/2023 9:41 AM Date of : 1990 Age: 32 Procedure: Upper GI endoscopy Indications: Epigastric abdominal pain, Functional Dyspepsia Providers: Rey Alcaraz DO Medicines: Monitored Anesthesia Care Patient Profile: This is a 32 year old female. Refer to note in patient chart for documentation of history and physical. Patient has symptoms of chronic abdominal cramping, chronic epigastric abdominal pain and chronic dyspepsia. Complications: No immediate complications. Procedure: Pre-Anesthesia Assessment: - Prior to the procedure, a History and Physical was performed, and patient medications and allergies were reviewed. The patient is competent. The risks and benefits of the procedure and the sedation options and risks were discussed with the patient. All questions were answered and informed consent was obtained. Patient identification and proposed procedure were verified by the physician. Mental Status Examination: normal. Respiratory Examination: clear to auscultation. CV Examination: normal. Prophylactic Antibiotics: The patient does not require prophylactic antibiotics. Prior Anticoagulants: The patient has taken no anticoagulant or antiplatelet agents. ASA Grade Assessment: II - A patient with mild systemic disease. After reviewing the risks and benefits, the patient was deemed in satisfactory condition to undergo the procedure. The anesthesia plan was to use monitored anesthesia care (MAC). Immediately prior to administration of medications, the patient was re-assessed for adequacy to receive sedatives. The heart rate, respiratory rate, oxygen saturations, blood pressure, adequacy of pulmonary ventilation, and response to care were monitored throughout the procedure. The physical status of the patient was re-assessed after the procedure. After obtaining informed consent, the endoscope was passed under direct vision. Throughout the procedure, the patient's blood pressure, pulse, and oxygen saturations were monitored continuously. The was introduced through the mouth, and advanced to the second part of duodenum. The upper GI endoscopy was accomplished without difficulty. The patient tolerated the procedure well. Scope In: 9:54:04 AM Scope Out: 9:57:45 AM Total Procedure Duration Time 0 hours 3 minutes 41 seconds Findings: The Z-line was irregular and was found 39 cm from the incisors. Biopsies were taken with a cold forceps for histology. Verification of patient identification for the specimen was done. Estimated blood loss was minimal. The entire examined stomach was normal. One non-bleeding linear duodenal ulcer with no stigmata of bleeding was found in the first portion of the duodenum. The lesion was 4 mm in largest dimension. Biopsies were taken with a cold forceps for histology. Verification of patient identification for the specimen was done. Estimated blood loss was minimal. A small hiatal hernia was present. Impression: - Z-line irregular, 39 cm from the incisors. Biopsied. - Normal stomach. - Non-bleeding duodenal ulcer with no stigmata of bleeding. Biopsied. Recommendation: - Discharge patient to home. - Resume previous diet. - Continue present medications. - Await pathology results. Procedure Code(s): --- Professional --- 86523, Esophagogastroduodenoscopy, flexible, transoral; with biopsy, single or multiple CPT copyright 2021 [employer]. All rights reserved. The codes documented in this report are preliminary and upon windows systems admin review may be revised to meet current compliance requirements. Rey Alcaraz DO 04/07/2023 10:15:20 AM This report has been signed electronically. Number of Addenda: 0 Note Initiated On: 04/07/2023 9:41 AM
--- NOTE | 2023-04-07 10:22 | OP.COLON_ITS ---
Patient Name: Mary Ruiz Procedure Date: 04/07/2023 9:59 AM Date of : 1990 Age: 32 Procedure: Colonoscopy Indications: Clinically significant diarrhea of unexplained origin, Suspected Crohn's disease of the small bowel Providers: Rey Alcaraz DO Medicines: Monitored Anesthesia Care Patient Profile: This is a 32 year old female. Refer to note in patient chart for documentation of history and physical. Patient has symptoms of chronic abdominal cramping, chronic epigastric abdominal pain and chronic dyspepsia. Last Colonoscopy: 3 years ago. Complications: No immediate complications. Procedure: Pre-Anesthesia Assessment: - Prior to the procedure, a History and Physical was performed, and patient medications and allergies were reviewed. The patient is competent. The risks and benefits of the procedure and the sedation options and risks were discussed with the patient. All questions were answered and informed consent was obtained. Patient identification and proposed procedure were verified by the physician. Mental Status Examination: normal. Respiratory Examination: clear to auscultation. CV Examination: normal. Prophylactic Antibiotics: The patient does not require prophylactic antibiotics. Prior Anticoagulants: The patient has taken no anticoagulant or antiplatelet agents. ASA Grade Assessment: II - A patient with mild systemic disease. After reviewing the risks and benefits, the patient was deemed in satisfactory condition to undergo the procedure. The anesthesia plan was to use monitored anesthesia care (MAC). Immediately prior to administration of medications, the patient was re-assessed for adequacy to receive sedatives. The heart rate, respiratory rate, oxygen saturations, blood pressure, adequacy of pulmonary ventilation, and response to care were monitored throughout the procedure. The physical status of the patient was re-assessed after the procedure. After I obtained informed consent, the scope was passed under direct vision. Throughout the procedure, the patient's blood pressure, pulse, and oxygen saturations were monitored continuously. The was introduced through the anus and advanced to the terminal ileum. The colonoscopy was performed without difficulty. The patient tolerated the procedure well. The quality of the bowel preparation was inadequate. The terminal ileum, ileocecal valve, appendiceal orifice, and rectum were photographed. Scope In: 10:00:53 AM Scope Withdrawal Time 0 hours 3 minutes 48 seconds Scope Out: 10:09:43 AM Total Procedure Duration Time 0 hours 8 minutes 50 seconds Findings: The perianal and digital rectal examinations were normal. Extensive amounts of stool was found in the entire colon, precluding visualization. A localized area of the terminal ileum was congested. Biopsies were taken with a cold forceps for histology. Verification of patient identification for the specimen was done. Estimated blood loss was minimal. Impression: - The rectum, rectal pouch, sigmoid colon, descending colon, transverse colon, ascending colon, cecum, ileocecal valve and terminal ileum are normal. Recommendation: - Repeat colonoscopy is recommended. The colonoscopy date will be determined after pathology results from today's exam become available for review. - Continue present medications. Rey Alcaraz DO 04/07/2023 10:21:27 AM This report has been signed electronically. Number of Addenda: 0 Note Initiated On: 04/07/2023 9:59 AM
--- NOTE | 2023-04-07 10:22 | OP.CCLET_ITS ---
04/07/2023 Drake Whiting [address] [place] [address] Re : Colonoscopy procedure for Mary Ruiz Dear Dr. Whiting This procedure was performed on Friday, April 07, 2023. My impressions and recommendations are as follows: Impressions : - The rectum, rectal pouch, sigmoid colon, descending colon, transverse colon, ascending colon, cecum, ileocecal valve and terminal ileum are normal. Recommendations : - Repeat colonoscopy is recommended. The colonoscopy date will be determined after pathology results from today's exam become available for review. - Continue present medications. My findings are described in the full procedure note, which is enclosed. If I can be of further assistance, please feel free to contact me at . Sincerely, Rey Alcaraz, 04/07/2023 10:21:27 AM This report has been signed electronically.
== END 2023-04-07 11:11 | disposition home or self-care (01) ==
LOC: EN 08:41 → AC 08:42
PROVIDERS: PCP Student in an Organized Health Care Education/Training Program; Referring Provider Student in an Organized Health Care Education/Training Program; Visit Provider Internal Medicine Gastroenterology
PROC: 0DJD8ZZ Inspection of Lower Intestinal Tract, Via Natural or Artificial Opening Endoscopic (ICD-10-PCS; CPT 45378; principal; 2023-04-07 09:40)
DX: K26.9 Duodenal ulcer, unspecified as acute or chronic, without hemorrhage or perforation (principal); K50.90 Crohn's disease, unspecified, without complications; R10.13 Epigastric pain; R19.7 Diarrhea, unspecified
CPT/HCPCS: 45380; 43239; 88305; 88313; J7120; J2405

== ENCOUNTER 2023-04-12 05:26 | Day surgery (SDC) | payer MEDICAID, SELFPAY ==
--- NOTE | 2023-04-12 | COLBX_PTH ---
PATIENT: SHOSHANA GUILLEN LOC: EN U#:[id number] AGE/SX: 32/F ROOM: RE04/12/[address]: Dr. Rey Alcaraz DO : 1990 BED: DIS: 04/12/2023 SPEC #: [id number] RECD: 04/12/23 13:51 STATUS: GORDON RECurry #: [id number] SAMANTA: 04/12/23 00:[address]: Rey Alcaraz DEPT: SURGICAL PATHOLOGY RECD BY: Inez Mcclure ENTERED: 04/12/23 13:51 SP TYPE: COLON BX OTHR DR: Dr. Drake Whiting DO Tissues: A - Ileum, NOS B - COLON BIOPSY Procedures: Surgery Specimen Level IV HEADER OPERATION: Colonoscopy, biopsy PRE-OP DIAGNOSIS: Crohn's disease TISSUE SUBMITTED: A - Terminal ileum biopsy, B - Random colonic biopsy MICROSCOPIC DIAGNOSIS A. Terminal ileum, biopsy: Focal acute enteritis. B. Colon, random biopsy: No pathologic change. AM:jorge 04/13/2023 MICROSCOPIC DESCRIPTION Slides are reviewed. GROSS DESCRIPTION A - Received in fixative is one container labeled with the patient's name and designated terminal ileum. The specimen consists of two irregular fragments of light cortes soft tissue that in aggregate measure 0.6 x 0.4 x 0.1 cm. The specimen is totally submitted in one cassette. B - Received in fixative is one container labeled with the patient's name and designated random colonic biopsy. The specimen consists of multiple irregular fragments of light cortes soft tissue that in aggregate measure 2.0 x 0.6 x 0.1 cm. The specimen is totally submitted in one cassette. / SJ:jorge 04/12/2023 TC:2 CPT: 74816 x2
[2023-04-12 05:58] VITALS: BP 93/71; PULSE 77; RESP 16; TEMP 36.6; O2SAT 100; BMI 33.8
[2023-04-12] MEDS: Lactated Ringers 1,000 ML 15 ML IV (06:01)
--- NOTE | 2023-04-12 06:36 | PCM.HP.BLA ---
History and Physical Date of Admission: 04/12/23 SHOSHANA GUILLEN, is a 32 F who presents to the office today for follow up. [facility] established for management of Crohn?s disease. LV 12.03.21 indicates?Pentasa QID and entocort taper?started with improvement of bowel irregularity.?Start Remicade infusions?following biochemical and tubal ligation 01.15.22?EGD and colonoscopy 07.23.21?records requested from [facility]. OV indicates stricture.?CT enterography 08.15.21?mild circumferential hyperenhancement of TI with narrowing of distal TI, caliber 6mm? ? 09.26.22/02.01.23 requested egd/colon and gi records? OV 02.22.23 Pt previously seeing GI in [place]. Would like to establish here due to distance. moderately controlled with Remicaide, Pentasa and as needed Dicyclomine. Still has some abdominal pain and diarrhea. Adjusting diet does help. Sx get worse leading up to next infusion. She underwent EGD and colonoscopy approximately 1 week ago. However her prep was very poor so she is back for repeat colonoscopy today. ? ROS Const Constitutional: No fatigue ENT ENT: No difficulty swallowing Gastro GI: No abdominal pain, belching, bloating, change in bowel habits, change in stool character, coffee ground emesis, constipation, cramping, diarrhea, heartburn, difficulty swallowing, feeling full early, excessive flatus, incontinent of stools, Vomiting blood/hematemesis, Blood in stool, loose stools, Black,tarry stools, nausea/dyspepsia, pain with swallowing, vomiting or other Musc Musculoskeletal: No joint pain Skin Skin: No yellowing of the eye or itchy eyes Psych Psychiatric: No anxiety and No depression Endo Endocrine: No fatigue Aller/Imm Allergy/Immunologic: No itchy eyes Estevan/Lymp Hematologic/Lymphatic: Positive for easy bruising; No easy bleeding Exam Const General: cooperative, healthy appearing, uncomfortable and no acute distress Nutritional Appearance: well nourished Orientation: alert, awake and oriented x3 HENMT Head: normal to inspection Ears: hearing grossly normal bilaterally, external ears normal, TM's normal bilaterally and EAC's normal Nose: external nose normal, nares normal, septum normal and nasal discharge clear Face and sinus: normal facial exam, sinuses nontender and face symmetric Mouth: oral mucosae normal, lip normal, tongue normal and oropharynx normal Throat: posterior oropharynx normal, tonsils normal, uvula midline and no postnasal drainage Eyes General: appearance normal, both eyes and all related structures Neck Neck: normal visual inspection, full ROM, no lymphadenopathy, no meningeal signs and supple Neck mass: No Thyroid: thyroid normal Lymphatic: no lymphadenopathy noted Chest Chest palpation & inspection: normal inspection of the chest Resp Effort & Inspection: normal respiratory effort, able to speak in complete sentences, symmetric chest movement and cough Quality of cough: dry (Nonproductive in office today) Auscultation: Bilateral: Clear to Auscultation Cardio Palpation: normal PMI Rate: tachycardic Rhythm: regular rhythm Heart Sounds: S1 normal, S2 normal, no gallops, no murmurs and no rubs Pulses: radial pulses present GI Inspection: normal to inspection Palpation: soft and no hepatosplenomegaly Skin General: no rashes or lesions noted Neuro General: patient alert, patient awake, patient oriented x3 and gait normal Cognition: normal cognition Speech: speech normal Gait: normal gait Motor: muscle tone normal throughout Sensory Exam: no sensory deficits noted Psych Appearance: grossly normal Mental Status: mental status grossly normal Mood: congruent mood Affect: normal affect Speech and Movement: speech and movement normal Attitude: cooperative Thought Process: normal Thought Content: normal Judgment: judgment good Quality Reporting Tobacco Screening ([facility] 138) Smoking Status: Never smoker Assessment and Plan Assessment and Plan (1) Crohn's disease: Status: Acute Qualifiers: Gastrointestinal tract location: small and large intestine Digestive disease complication type: without complication Qualified Code(s): K50.80 - Crohn's disease of both small and large intestine without complications Plan: 32-year-old with past medical history of Crohn's disease involving the small intestines but typically the ileum and the right side of the colon including the cecum, ileocecal valve and ascending colon that was seen previously on colonoscopy. She had a CT enterography that also showed some possible narrowing consistent with inflammatory Crohn's disease of the terminal ileum. She does not have any extraintestinal manifestations of Crohn's disease including no findings, pancreatic findings, liver findings, skin findings. She is not having any night sweats or fatigue. She does not know if she has had a updated hepatitis B or Tuberculosis screening. She takes Remicade every 8 weeks at a 5 mg/kg dose and she takes Pentasa 4 times a day at a dose of 500 mg. She notices that she starts getting symptoms With her bowel disease including bloating, cramping, nausea and worsening diarrhea about a week prior to her needing her infusion of Remicade. We will get biochemical testing, capsule endoscopy, possible imaging with MRI enterography or repeat CT enterography. We will also get drug levels of Remicade and antibody levels. Further recommendations to follow. Orders: Orders CBC W/Diff, Automated Today K50. - Crohn's disease, unspecified, without complications Ferritin Today K50. - Crohn's disease, unspecified, without complications NEIL + Protein Elect, Serum Today K50. - Crohn's disease, unspecified, without complications Iron Binding Capacity,Total Today K50. - Crohn's disease, unspecified, without complications LDH Today K50. - Crohn's disease, unspecified, without complications Retic Panel Count Today K5. - Crohn's disease, unspecified, without complications Iron Today K50. - Crohn's disease, unspecified, without complications ANCA Today K50. - Crohn's disease, unspecified, without complications Celiac Disease Profile Today K50. - Crohn's disease, unspecified, without complications Comprehensive Metabolic Profil Today K50. - Crohn's disease, unspecified, without complications CRP Today K50. - Crohn's disease, unspecified, without complications Erythrocyte Sed Rate Today K50. - Crohn's disease, unspecified, without complications Hepatitis Panel Acute Today K50. - Crohn's disease, unspecified, without complications Immunoglobulin M Today K50. - Crohn's disease, unspecified, without complications Immunoglobulin G Today K50. - Crohn's disease, unspecified, without complications Immunoglobulin E Today K50. - Crohn's disease, unspecified, without complications Immunoglobulin A Today K50 - Crohn's disease, unspecified, without complications Miscellaneous Lab Procedure Today K50. - Crohn's disease, unspecified, without complications Amylase Today K50. - Crohn's disease, unspecified, without complications Fecal Fat, Qualitative Today K50 - Crohn's disease, unspecified, without complications Pancreatic Elastase, Fecal Today K50. - Crohn's disease, unspecified, without complications Lipase Today K50. - Crohn's disease, unspecified, without complications Stool Lactoferrin/WBC Today K50. - Crohn's disease, unspecified, without complications, K58.9 - Irritable bowel syndrome without diarrhea Calprotectin, Stool Today K50. - Crohn's disease, unspecified, without complications JEY Comprehensive Panel Today K50. - Crohn's disease, unspecified, without complications Anti-Mitochondrial AB Today K50. - Crohn's disease, unspecified, without complications Hemoglobin A1c Today K50. - Crohn's disease, unspecified, without complications ENTERIC PATHOGEN PANEL STOOL Today K50. - Crohn's disease, unspecified, without complications, K58.9 - Irritable bowel syndrome without diarrhea CDIFF (PCR) Today K50. - Crohn's disease, unspecified, without complications OVA+PARA w/Giardia EIA [id number] Today K50 - Crohn's disease, unspecified, without complications Thyroid Stim Hormone (TSH) Today K5 - Crohn's disease, unspecified, without complications Vitamin D 1,25-Dihydroxy Today K50 - Crohn's disease, unspecified, without complications Folates, (Folic Acid) Today K5 - Crohn's disease, unspecified, without complications Vitamin B12 Today K50 - Crohn's disease, unspecified, without complications Miscellaneous Lab Procedure 2 Today K50 - Crohn's disease, unspecified, without complications Quantiferon TB-Gold+ Today K5 - Crohn's disease, unspecified, without complications Coding Level of Care Code Off vis,new,level 4 Diagnoses Crohn's disease of both small and large intestine without complication K50.80 Gastrointestinal tract location: small and large intestine Digestive disease complication type: without complication I have examined the patient and the H&P has been reviewed. There are no clinical changes since date of exam.
[2023-04-12 07:06] VITALS: BP 91/62; BP 93/71; PULSE 72; RESP 18; TEMP 36.2; O2SAT 97
[2023-04-12 07:09] VITALS: BP 93/71; BP 98/64; PULSE 72; RESP 18; O2SAT 100
--- NOTE | 2023-04-12 07:10 | OP.COLON_ITS ---
Patient Name: Mary Ruiz Procedure Date: 04/12/2023 6:15 AM Date of : 1990 Age: 32 Procedure: Colonoscopy Indications: Crohn's disease of the small bowel Providers: Rey Alcaraz DO Referring MD: Drake Whiting Medicines: Monitored Anesthesia Care Patient Profile: This is a 32 year old female. Refer to note in patient chart for documentation of history and physical. Last Colonoscopy: 1 week ago. Complications: No immediate complications. Procedure: Pre-Anesthesia Assessment: - Prior to the procedure, a History and Physical was performed, and patient medications and allergies were reviewed. The patient is competent. The risks and benefits of the procedure and the sedation options and risks were discussed with the patient. All questions were answered and informed consent was obtained. Patient identification and proposed procedure were verified by the physician. Mental Status Examination: normal. Prophylactic Antibiotics: The patient does not require prophylactic antibiotics. Prior Anticoagulants: The patient has taken no anticoagulant or antiplatelet agents. After reviewing the risks and benefits, the patient was deemed in satisfactory condition to undergo the procedure. The anesthesia plan was to use monitored anesthesia care (MAC). Immediately prior to administration of medications, the patient was re-assessed for adequacy to receive sedatives. The heart rate, respiratory rate, oxygen saturations, blood pressure, adequacy of pulmonary ventilation, and response to care were monitored throughout the procedure. The physical status of the patient was re-assessed after the procedure. After I obtained informed consent, the scope was passed under direct vision. Throughout the procedure, the patient's blood pressure, pulse, and oxygen saturations were monitored continuously. The Colonoscope was introduced through the anus and advanced to the terminal ileum. The colonoscopy was performed without difficulty. The patient tolerated the procedure well. The quality of the bowel preparation was adequate. Scope In: 6:43:56 AM Scope Withdrawal Time 0 hours 8 minutes 43 seconds Scope Out: 6:58:54 AM Total Procedure Duration Time 0 hours 14 minutes 58 seconds Findings: Semi-liquid stool was found in the sigmoid colon, at the hepatic flexure and in the ascending colon. A few small-mouthed diverticula were found in the recto-sigmoid colon and sigmoid colon. An area of mildly congested mucosa was found in the recto-sigmoid colon, in the sigmoid colon, at the hepatic flexure and in the ascending colon. Biopsies were taken with a cold forceps for histology. Verification of patient identification for the specimen was done. Estimated blood loss was minimal. The terminal ileum contained a single (solitary) six mm ulcer. No bleeding was present. No stigmata of recent bleeding were seen. Biopsies were taken with a cold forceps for histology. Verification of patient identification for the specimen was done. Estimated blood loss was minimal. Impression: - Stool in the sigmoid colon, at the hepatic flexure and in the ascending colon. - Diverticulosis in the recto-sigmoid colon and in the sigmoid colon. - Congested mucosa in the recto-sigmoid colon, in the sigmoid colon, at the hepatic flexure and in the ascending colon. Biopsied. - A single (solitary) ulcer in the terminal ileum. Biopsied. Recommendation: - Discharge patient to home. - Resume previous diet. - Continue present medications. - Await pathology results. - Repeat colonoscopy in 1 year to assess disease activity. Procedure Code(s): --- Professional --- 57760, Colonoscopy, flexible; with biopsy, single or multiple CPT copyright 2021 [employer]. All rights reserved. The codes documented in this report are preliminary and upon vortex operator review may be revised to meet current compliance requirements. Rey Alcaraz DO 04/12/2023 7:09:44 AM This report has been signed electronically. Number of Addenda: 0 Note Initiated On: 04/12/2023 6:15 AM
--- NOTE | 2023-04-12 07:11 | OP.CCLET_ITS ---
04/12/2023 Drake Whiting [address] [place] [address] Re : Colonoscopy procedure for Mary Ruiz Dear Dr. Whiting This procedure was performed on Wednesday, April 12, 2023. My impressions and recommendations are as follows: Impressions : - Stool in the sigmoid colon, at the hepatic flexure and in the ascending colon. - Diverticulosis in the recto-sigmoid colon and in the sigmoid colon. - Congested mucosa in the recto-sigmoid colon, in the sigmoid colon, at the hepatic flexure and in the ascending colon. Biopsied. - A single (solitary) ulcer in the terminal ileum. Biopsied. Recommendations : - Discharge patient to home. - Resume previous diet. - Continue present medications. - Await pathology results. - Repeat colonoscopy in 1 year to assess disease activity. My findings are described in the full procedure note, which is enclosed. If I can be of further assistance, please feel free to contact me at . Sincerely, Rey Alcaraz, 04/12/2023 7:09:44 AM This report has been signed electronically.
[2023-04-12 07:15] VITALS: BP 101/66; BP 93/71; PULSE 68; RESP 18; O2SAT 100
[2023-04-12 07:18] VITALS: BP 93/52; BP 93/71; PULSE 63; RESP 18; TEMP 36.5; O2SAT 98
[2023-04-12 07:43] VITALS: BP 93/71
== END 2023-04-12 07:43 | disposition home or self-care (01) ==
LOC: EN 05:26 → AC 05:27
PROVIDERS: PCP Student in an Organized Health Care Education/Training Program; Referring Provider Student in an Organized Health Care Education/Training Program; Visit Provider Internal Medicine Gastroenterology
PROC: 0DJD8ZZ Inspection of Lower Intestinal Tract, Via Natural or Artificial Opening Endoscopic (ICD-10-PCS; CPT 45378; principal; 2023-04-12 06:25)
DX: K50.90 Crohn's disease, unspecified, without complications (principal); K57.30 Diverticulosis of large intestine without perforation or abscess without bleeding
CPT/HCPCS: 45380; 88305; J7120; J2405

== ENCOUNTER 2023-04-16 18:19 | Emergency (ER) | payer MEDICAID, SELFPAY ==
[2023-04-16 18:21] VITALS: BP 122/95; PULSE 74; RESP 18; TEMP 36.4; O2SAT 91; BMI 33.8
--- NOTE | 2023-04-16 19:21 | CT_ITS ---
EXAM: CT ABDOMEN AND PELVIS WITH INTRAVENOUS CONTRAST CLINICAL INDICATION: abdominal pain TECHNIQUE: Helically acquired images were obtained of the abdomen and pelvis with intravenous contrast. This CT exam was performed using one or more of the following dose reduction techniques: automated exposure control, adjustment of the mA and/or kV according to patient size, and/or use of iterative reconstruction technique. CONTRAST: IV 100mL [id number]-370 COMPARISON: 12/22/2020. FINDINGS: LOWER THORAX: Small hiatal hernia. Lung bases are clear. No cardiomegaly. No significant pericardial effusion. ABDOMEN: LIVER: Minimal intrahepatic biliary ductal dilatation. The liver is normal in size and attenuation. No focal hepatic abnormality. GALLBLADDER AND BILE DUCTS: Gallbladder is not visualized, likely status post cholecystectomy. The common bile duct is dilated measuring approximately 1 cm. No definite bile duct filling defect is identified. PANCREAS: No significant abnormality. No focal cystic or solid mass. SPLEEN: No significant abnormality. Normal size without focal cystic or solid mass. ADRENALS: No significant abnormality. No nodules. KIDNEYS AND URETERS: No significant abnormality. Normal renal size and position. No hydronephrosis. STOMACH AND BOWEL: No significant abnormality. No stomach or bowel distention. No focal inflammatory change. PELVIS: APPENDIX: Normal appendix in the right lower quadrant. BLADDER: No significant abnormality. REPRODUCTIVE: Normal as visualized. No mass. ABDOMEN and PELVIS: INTRAPERITONEAL SPACE: No significant abnormality. No ascites or other fluid collection. No free air. BONES/JOINTS: No significant abnormality. No suspicious lytic or blastic abnormality. SOFT TISSUES: Fat-containing umbilical hernia. VASCULATURE: No significant abnormality. Abdominal aorta is non-dilated. LYMPH NODES: No significant abnormality. No enlarged lymph nodes. CT/Abdomen/Pelvis W IV Cont ONLY IMPRESSION: The common bile duct is dilated measuring approximately 1 cm. Status post cholecystectomy. Fat-containing umbilical hernia. Electronically Signed: Luis Howard DO at 20:29 EST ,
--- NOTE | 2023-04-16 19:22 | EX.ED.DYSGE1 ---
HPI History of Present Illness Chief Complaint: Abd Pain Detail of Chief Complaint: Abdominal pain Informant: patient Narrative Narrative: Patient presents to the emergency room with complaint of abdominal pain that became severe today. Patient states that she had some mild pain for couple days. Patient tells me that she had an EGD and colonoscopy [address] Alcaraz. Patient was told she had several ulcers. She has had 4 episodes of vomiting today. She denies diarrhea. She denies urinary symptoms. She denies blood in her stool or black tarry stool. Patient also with history of Crohn's disease. Patient's had prior cholecystectomy. Currently rates her pain a 9 out of 10. [facility] Medical History (Updated 04/16/23 @ 22:[address] Erasmo Cage, DO) Acute conjunctivitis, right eye Acute sinusitis, unspecified Anemia Asthma Asthma Encounter for screening for COVID-19 Gastric reflux Heartburn History of Crohn's disease History of ulceration Hx of fracture of leg IFG (impaired fasting glucose) Low iron Non-smoker Periumbilical hernia Home Medications cholecalciferol (vitamin D3) 10 mcg (400 unit) capsule (Vitamin D3) 10 mcg PO DAILY 12/22/20 [History Last Taken Unknown] albuterol sulfate 90 mcg/actuation aerosol inhaler 1 - 2 inh inhalation PRN PRN ASTHMA 01/08/22 [History Last Taken Unknown] dicyclomine 10 mg capsule 10 mg PO PRN PRN ABD PAIN 01/08/22 [History Last Taken Unknown] ferrous sulfate 142 mg (45 mg iron) tablet,extended release (Slow Release Iron) 45 mg PO BID 01/08/22 [History Last Taken Unknown] budesonide 3 mg capsule,delayed,extended release 3 mg PO DAILY #90 ea 03/17/23 [Rx Last Taken Unknown] peg 3350-electrolytes 236 gram-22.74 gram-6.74 gram-5.86 gram solution (Golytely) 240 ml PO Q10M #4,000 mL 04/07/23 [Rx Last Taken Unknown] hydrocodone-acetaminophen 5-325mg 5mg-325mg 1 tab PO Q4H PRN PRN Pain 2 days #10 TABLETS 04/16/23 [Rx Last Taken Unknown] lansoprazole 30 mg delayed release,disintegrating tablet (Prevacid SoluTab) 30 mg PO DAILY #14 tabs 04/16/23 [Rx Last Taken Unknown] ondansetron 4 mg disintegrating tablet 4 mg PO Q8H PRN PRN Nausea #10 tabs 04/16/23 [Rx Last Taken Unknown] Allergy/AdvReac Type Severity Reaction Status Date / Time morphine AdvReac Vomiting Verified 04/16/23 18:21 pseudoephedrine HCl AdvReac Vomiting Verified 04/16/23 18:21 [From [facility]] Surgical History History of ear surgery History of hernia surgery History of tubal ligation Hx laparoscopic cholecystectomy Social History Smoking Status: Never smoker alcohol intake: never ROS ROS ED Review of Systems ROS Unobtainable: other Constitutional Constitutional ED: Reports lethargy; Denies chills, fever(s), sweats or weight loss Eyes Eyes: Denies blurry vision, change in vision or diplopia ENT ENT ED: Denies rhinorrhea or sore throat Cardiovascular Cardiovascular: Denies chest pain, orthopnea or racing heartbeat Respiratory/Chest Respiratory/Chest: Denies cough, dyspnea, dyspnea on exertion, orthopnea or sputum Gastrointestinal Gastrointestinal: Reports abdominal pain, nausea and vomiting; Denies diarrhea Genitourinary Genitourinary ED: Denies dysuria, hematuria or urinary frequency Musculoskeletal Musculoskeletal: Denies arthralgias, back pain, myalgias or neck pain Integumentary Denies abscess, Abrasions or rash Neurologic Neurologic: Denies headache(s) or weakness Psychiatric Psychiatric: Denies anxiety, depression or suicidal thoughts Endocrine Endocrinology: Denies polydipsia, polyphagia or polyuria Hematologic/Lymphatic Hematologic/Lymphatic: Denies easy bleeding, easy bruising or lymphadenopathy Allergic/Immunologic Allergic/Immunologic ED: Denies mouth swelling, tongue swelling or urticaria EXAM Physical Exam Const Vital Signs: 04/16/23 18:21 Temperature 97.5 F L Temperature Source Temporal Pulse Rate 74 Respiratory Rate 18 Blood Pressure 122/95 H Blood Pressure Mean 104 Pulse Ox 91 Oxygen Delivery Method Room Air Positive well nourished and well developed General Appearance ED: well developed and NAD HEENT Reports TM's clear and moist mucous membranes normocephalic and atraumatic; Negative for trauma or tenderness Tympanic Membrane ED: Yes TM's clear Eyes PERRL and EOMs intact bilaterally General Eye ED: Negative for pale conjunctiva or scleral icterus Neck no lymphadenopathy, supple and no JVD General: Negative for tenderness Chest Wall inspection of chest normal and palpation of chest normal Chest: Negative for tenderness Resp normal respiratory effort and clear to auscultation bilaterally Effort and Inspection: Negative for respiratory distress or pain with movement Auscultation: Negative for rhonchi, wheezes or diminished lung sounds Cardio regular rate, regular rhythm, S1 normal heart sound, S2 normal heart sound and no murmurs Peripheral Pulses: pulses 2+ throughout GI normal to inspection, nondistended, normoactive bowel sounds, soft to palpation, non-distended and no masses GI Narrative: To palpation over the epigastric region and left upper quadrant with guarding. There is no rebound, rigidity, or signs. No mass palpated. Back/Spine no CVA tenderness and no thoracic nor lumbar tenderness Extremity normal to inspection General Extremety ED: Negative for edema General Extremity: Negative for edema Neuro oriented x3, CN's II-XII intact bilaterally, no sensory deficits noted and gait normal Sensorium / Orientation: awake, alert, oriented to person, oriented to place and oriented to time Motor Exam: strength 5/5 throughout and strength abnormal Psych mental status grossly normal Skin no rashes or lesions noted and no wounds MDM MDM MDM Narrative Medical decision making narrative: With abdominal pain after recent upper endoscopy. In the differential would be pancreatitis versus esophageal perforation or stomach perforation versus Crohn's flareup. IV line established. Patient was medicated Dilaudid and Zofran. CBC with differential obtained showed a normal white count of 9.1 with hemoglobin 12 and platelet count of 297. Chemistries unremarkable. LFTs were normal. Lipase slightly elevated at any 9. hCG was negative. Urinalysis normal. CT scan of the abdomen pelvis showed a dilated common bile duct at 1 cm and patient to be postcholecystectomy. Discussed case with GI Dr. 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 This point I do not feel there is any further indication for any more testing. Clinically she looks well. Will give patient a prescription for a few [place] and prescription for Zofran. She had no further vomiting in the department. Etiology of her pain unclear. She tells me that on her scope she did have evidence of ulcers. She tells me that she is not on proton pump inhibitor or anything for ulcers. I will start her on Prevacid. Lab Data Attestation: I reviewed the patient's lab results. Labs: Laboratory Results - last 24 hr 04/16/23 04/16/23 19:30 21:08 WBC 9.1 RBC 4.05 L Hgb 12.1 Hct 36.6 L MCV 90.4 MCH 29.9 MCHC 33.1 RDW Std Deviation 40.0 RDW Coeff of [place] 12.1 Plt Count 297 MPV 9.3 Immature Gran % (Auto) 0.400 Neut % (Auto) 69.5 Lymph % (Auto) 24.7 [place] % (Auto) 4.9 Eos % (Auto) 0.3 Baso % (Auto) 0.2 Absolute Neuts (auto) 6.3 Absolute Lymphs (auto) 2.26 Nucleated RBC % 0 Sodium 139 Potassium 3.5 Chloride 106 Carbon Dioxide 29.0 Anion Gap 4 L BUN 8 Creatinine 0.77 Estim Creat Clear Calc 82.96 Est GFR (MDRD) Af Amer 111 Est GFR (MDRD) Non-Af 92 BUN/Creatinine Ratio 10.4 Glucose 104 Lactic Acid 0.8 Calcium 9.1 Total Bilirubin 0.30 AST 7 L ALT 18 Alkaline Phosphatase 89 Total Protein 7.8 Albumin 3.7 Globulin 4.1 Albumin/Globulin Ratio 0.9 Lipase 179 H Serum , Qual NEGATIVE Urine Color Yellow Urine Clarity Clear Urine pH 7.0 Ur Specific [place] 1.010 Urine Protein 15 H Urine Glucose (UA) Normal Urine Ketones 5 H Urine Occult Blood 250 H Urine Nitrite Negative Urine Bilirubin Negative Urine Urobilinogen Normal Ur Leukocyte Esterase 25 H Urine RBC 0 SEEN Urine WBC 0-5 SEEN Ur Squamous Epith Cells 0-5 SEEN Urine Bacteria 0 SEEN Urine Mucus 0 SEEN Radiography Diagnostic Testing: Clinical Impression(s) from Imaging Studies Abdomen/Pelvis CT 04/16/23 19:21 IMPRESSION: The common bile duct is dilated measuring approximately 1 cm. Status post cholecystectomy. Fat-containing umbilical hernia. Electronically Signed: Luis Howard DO at 20:29 EST , Discharge Plan Triage Chief Complaint: Abd Pain ED Provider: Erasmo Cage Dx/Rx/DC Orders Clinical Impression: Gastritis, Abdominal pain Instructions: ED Abdominal Pain Unkn Cause Fem, ED Gastritis (Adult) Prescriptions: New hydrocodone-acetaminophen [hydrocodone-acetaminophen] 5-325 mg tablet 1 tab PO Q4H PRN PRN (Reason: Pain) 2 Days Qty: 10 0RF ondansetron [ondansetron] 4 mg tablet,disintegrating 4 mg PO Q8H PRN PRN (Reason: Nausea) Qty: 10 0RF lansoprazole [Prevacid SoluTab] 30 mg tablet,disintegrat, delay rel 30 mg PO DAILY Qty: 14 0RF No Action cholecalciferol (vitamin D3) [Vitamin D3] 10 mcg (400 unit) Capsule 10 mcg PO DAILY albuterol sulfate 90 mcg/actuation HFA aerosol inhaler 1 - 2 inh INHALATION PRN PRN (Reason: ASTHMA) Patient Comments: inhale 2 puffs by mouth and INTO THE LUNGS every 2 hours if neede... (REFER TO PRESCRIPTION NOTES). dicyclomine 10 mg capsule 10 mg PO PRN PRN (Reason: ABD PAIN) Patient Comments: take 1 capsule by mouth three times a day if needed for abdominal pain Slow Release Iron 142 mg (45 mg iron) tablet extended release 45 mg PO BID Patient Comments: take 1 tablet by mouth twice a day with meals peg 3350-electrolytes [Golytely] 236-22.74-6.74 -5.86 gram recon soln 240 ml PO Q10M Qty: 4000 0RF Rx Instructions: until fecal effluent is clear budesonide 3 mg capsule,delayed,extend.release 3 mg PO DAILY Qty: 90 2RF Primary Care Provider: Drake Whiting Referrals: Drake Whiting DO [Primary Care Provider] - Rey Alcaraz DO [Med Staff - Active Staff] - 3-5 Days Disposition Disposition: Home, Self Care
[2023-04-16] MEDS: HYDROmorphone 1 MG/ML Syringe IV (19:29)
[2023-04-16] MEDS: 0.9% Normal Saline (1000mL) 1,000 ML 125 ML IV (19:29)
[2023-04-16] MEDS: Ondansetron 4 MG/2 ML Vial IV (19:29)
[2023-04-16 19:40] LABS: Absolute Lymphocyte Count 2.26 X10^3/uL (0.83-4.51); Absolute Neutrophil Count 6.3 X10^3/uL (2.0-7.7); Basophil# 0.02 X10^3/uL; Basophil% 0.2 % (0-1); Eosinophil# 0.03 X10^3/uL; Eosinophils% 0.3 % (0-5); Hematocrit 36.6 % (37-47); Hemoglobin 12.1 g/dL (12.0-15.0); Lymphocyte # 2.26 X10^3/ul (0.83-4.51); Lymphocyte % 24.7 % (19-41); Mean Corp Hgb Conc 33.1 g/dL (32-36); Mean Corpuscular Hgb 29.9 pg (27.0-32.0); Mean Corpuscular Volume 90.4 fL (81-99); Mean Platelet Vol. 9.3 fl (6.2-12.0); Monocyte# 0.45 X10^3/uL; Monocyte% 4.9 % (0-10); NRBC Flagged by Analyzer 0 % (0-5); Neutrophil # 6.34 X10^3/uL (2.7-7.7); Neutrophil % 69.5 % (47-70); Platelet Count 297 K/mm3 (150-450); RBC Distribution Width CV 12.1 % (11.6-14.6); Red Blood Count 4.05 M/mm3 (4.2-5.4); White Blood Count 9.1 K/mm3 (4.4-11.0)
[2023-04-16 19:53] LABS: Internal QC Validated? YES +Cl - CLEAR BKGD; Pregnancy, Serum, hCG Quali. NEGATIVE Negative
[2023-04-16 19:57] LABS: ALB/GLOB Ratio 0.9 RATIO (0.9-2.4); AST(SGOT) 7 U/L (15-37); Alanine Aminotransfer ALT/SGPT 18 U/L (13-56); Albumin, Serum 3.7 g/dL (3.2-5.0); Alkaline Phosphatase 89 U/L (45-117); Anion Gap 4 (5-15); BUN 8 mg/dL (7-18); BUN/Creat Ratio 10.4 RATIO (10-20); Calcium,Total 9.1 mg/dL (8.5-10.1); Chloride 106 mmol/L (98-107); Creatinine, Serum 0.77 mg/dL (0.55-1.02); EST Glomerular Filtration Rate 92 mL/min (>60); Est Glom Filt Rate - Afr Amer 111 mL/min (>60); Estimated Creatinine Clearance 82.96 ml/min; Globulin 4.1 g/dL (2.2-4.2); Glucose 104 mg/dL (74-106); Lipase 179 U/L (13-75); Potassium 3.5 mmol/L (3.5-5.1); Protein, Total 7.8 g/dL (6.4-8.2); Sodium Level 139 mmol/L (136-145)
[2023-04-16 20:53] LABS: Lactic Acid 0.8 mmol/L (0.4-1.9)
[2023-04-16 21:14] LABS: Bacteria 0 SEEN /hpf (None Seen); Mucous, Urine 0 SEEN /hpf (<or=2+); Red Blood Cells-Urine 0 SEEN /hpf (0-5)
[2023-04-16 21:23] LABS: Color, Urine Yellow (Yellow); Glucose, Dipstick Normal (Normal); Ketone-Dipstick 5 mg/dl (Negative); Leukocyte Esterase-Dipstick 25 /ul (Negative); Nitrite-Dipstick Negative (Negative); Occult Blood-Urine 250 /ul (Negative); Protein-Dipstick 15 mg/dl (Negative); Urine Bilirubin Dipstick Negative (Negative); Urine Clarity Clear (Clear); Urine Urobilinogen Normal (Normal)
[2023-04-16 22:00] LABS: Squamous Epithelial Cells - UA 0-5 SEEN /hpf (5-10); White Blood Cells 0-5 SEEN /hpf (0-5)
[2023-04-16] MEDS: Mag Hydrox/Al Hydrox/Simeth 30 ML UDC PO (22:42)
[2023-04-16 22:50] VITALS: BP 132/70
== END 2023-04-16 22:54 | disposition home or self-care (01) ==
PROVIDERS: Emergency Provider Emergency Medicine; PCP Student in an Organized Health Care Education/Training Program; Visit Provider Emergency Medicine
DX: R10.9 Unspecified abdominal pain (principal); K29.70 Gastritis, unspecified, without bleeding; Z90.49 Acquired absence of other specified parts of digestive tract; Z79.899 Other long term (current) drug therapy
CPT/HCPCS: 74177; 80053; 81001; 83605; 83690; 84703; 85025; 96361; 96374; 96375; 99283; J7030; Q9967; A4216; J2405

== ENCOUNTER 2023-06-01 13:19 | Outpatient (CLI) | payer MEDICAID, SELFPAY ==
[2023-06-01] MEDS: 0.9% NaCl Peripheral Flush Adult/Peds IV (13:41)
--- OUTSIDE RECORDS SUMMARY | 2023-06-01 13:43 | XMS RPT_ITS | CCD ---
Author Name Unknown Address [address] [place] [address] Organization [facility] Care Team Providers Care Fishing Lure Assembler Name Role Phone BLANE RAMESH Unavailable Unavailable HENDERSON, DRAKE Unavailable Unavailable BLANE RAMESH Unavailable Unavailable HENDERSON, DRAKE Unavailable Unavailable BLANE RAMESH Unavailable Unavailable HENDERSON, DRAKE Unavailable Unavailable Drake Henderson DO Primary Care Provider Kath Sosa MD Unavailable Drake Henderson DO Primary Care Provider Kath Soas MD Unavailable [phone] Kath Sosa MD Unavailable Drake Henderson DO Primary Care Provider Drake Henderson DO Primary Care Provider Kath Sosa MD Unavailable [phone] MIRACLEKA, TIA Referring Unavailable HENDERSON, DRAKE Olga Primary Care Unavailable HENDERSON, DRAKE L Primary Care Unavailable KALKA, TIA Referring Unavailable HENDERSON, DRAKE L Primary Care Unavailable NUÑEZ, UYEN Referring Unavailable HENDERSON, DRAKE L Primary Care Unavailable NUÑEZ, UYEN Attending Unavailable HENDERSON, DRAKE L Primary Care Unavailable KALKA, TIA Referring Unavailable HENDERSON, DRAKE L Primary Care Unavailable KALKA, TIA Referring Unavailable HENDERSON, DRAKE L Primary Care Unavailable KALKA, TIA Attending Unavailable KALKA, TIA Referring Unavailable HENDERSON, DRAKE L Primary Care Unavailable KALKA, TIA Referring Unavailable HENDERSON, RDAKE L Primary Care Unavailable KALKA, TIA Referring Unavailable HENDERSON, DRAKE L Primary Care Unavailable DRAKE HENDERSON Primary Care Unavailable Allergies Allergy Classification Reported Allergen(s) Allergy Type Date of Onset Reaction(s) Facility (20 sources) Morphine; Translations: [MORPHINE] Drug Allergy 12-26-2020 Rash, GI Upset [facility] (20 sources) Pseudoephedrine; Translations: [PSEUDOEPHEDRINE HCL] Drug Allergy 11-13-2014 Intolerance [facility] Work Phone: Medications Completed/Discontinued Medications Medication Drug Class(es) Dates Sig (Normalized) Sig (Original) [id number] 200 actuat albuterol 0.09 mg/actuat metered dose inhaler (20 sources) beta2-Adrenergic Agonist Start: 04-30-2021 take 2 puff(s) by inhalation every two hours as needed for wheezing albuterol HFA (PROVENTIL HFA, VENTOLIN HFA) 90 mcg/actuation inhaler Inhale 2 Puffs as instructed every 2 hours as needed for wheezing/shortnes s of breath. 8 g 0 04/30/2021 Active Problems Active Problems Problem Classification Problem Date Documented Date Episodic/Chronic Abdominal hernia (5 sources) Umbilical hernia; Translations: [Umbilical hernia without obstruction or gangrene] Episodic Contraceptive and procreative management (6 sources) Patient encounter status; Translations: [Encounter for surveillance of injectable contraceptive] Episodic Deficiency and other anemia (1 source) Iron deficiency anemia; Translations: [Iron deficiency anemia, unspecified] 12-23-2022 Episodic Noninfectious gastroenteritis (1 source) Inflammatory bowel disease; Translations: [Noninfective gastroenteritis and colitis, unspecified] Episodic Nutritional deficiencies (2 sources) Vitamin D deficiency; Translations: [Vitamin D deficiency, unspecified] Onset: 12-28-2022 12-23-2022 Chronic Other nervous system disorders (1 source) Postoperative pain ; Translations: [Other acute postprocedural pain] Episodic Other upper respiratory infections (3 sources) Pharyngitis; Translations: [Acute pharyngitis, unspecified] Episodic Regional enteritis and ulcerative colitis (20 sources) Crohn's disease of small intestine; Translations: [Crohn's disease of small intestine with other complication] Onset: 12-09-2021 Chronic Residual codes; unclassified (1 source) Postoperative state; Translations: [Other specified postprocedural states] Episodic Past or Other Problems Problem Classification Problem Date Documented Da te Episodic/Chronic Abdominal pain (20 sources) Generalized abdominal pain; Translations: [Generalized abdominal pain] Onset: 05-15-2016 Episodic Deficiency and other anemia (1 source) Iron deficiency anemia, unspecified; Translations: [Iron deficiency anemia, unspecified iron deficiency anemia type] Onset: 12-28-2022 Episodic Diabetes mellitus without complication (20 sources) Impaired fasting glycemia; Translations: [Impaired fasting glucose] Onset: 09-26-2014 09-26-2014 Episodic Immunizations and screening for infectious disease (6 sources) Contact with or exposure to other viral diseases; Translations: [Exposure to COVID-19 virus] Onset: 10-30-2022 Episodic Other complications of (20 sources) Spotting per vagina in ; Translations: [Spotting complicating , unspecified trimester] Onset: 09-14-2019 09-14-2019 Episodic Other gastrointestinal disorders (20 sources) Diarrhea; Translations: [Diarrhea, unspecified] Onset: 05-15-2016 05-15-2016 Episodic Other and delivery including normal (20 sources) with uncertain dates; Translations: [Encounter for supervision of normal , unspecified, first trimester] Onset: 09-14-2019 09-14-2019 Episodic Other screening for suspected conditions (not mental disorders or infectious disease) (1 source) Encounter for screening for lipoid disorders; Translations: [Screening for lipid disorders] Onset: 12-28-2022 Episodic Results Test Name Value Interpretation Reference Range Facil ity Vital Signs Date Time Vital Sign Value Performing Clinician Hans randle 12-28-2022 13:08-0400 Body temperature 97.3 [degF] Treatment Wstr Work Phone: [facility] 12-28-2022 13:08-0400 Diastolic blood pressure 73 mm[Hg] Treatment Wstr Work Phone: [facility] 12-28-2022 13:08-0400 Heart rate 68 /min Treatment Wstr Work Phone: [facility] 12-28-2022 13:08-0400 Systolic blood pressure 109 mm[Hg] Treatment Wstr Work Phone: [facility] 12-23-2022 13:31-0400 Body height 157.5 cm Uyen Nuñez LOCOMOTIVE REPAIRER DIESEL.EMBROIDERY ASSISTANT Work Phone: [facility] 12-23-2022 13:31-0400 Body weight 86.67 kg Uyen Nuñez LOCOMOTIVE REPAIRER DIESEL.EMBROIDERY ASSISTANT Work Phone: [facility] 12-23-2022 13:31-0400 Diastolic blood pressure 62 mm[Hg] Uyen Nuñez LOCOMOTIVE REPAIRER DIESEL.EMBROIDERY ASSISTANT Work Phone: [facility] 12-23-2022 13:31-0400 Heart rate 68 /min Uyen Nuñez LOCOMOTIVE REPAIRER DIESEL.EMBROIDERY ASSISTANT Work Phone: [facility] 12-23-2022 13:31-0400 Respiratory rate 16 /min Uyen Nuñez LOCOMOTIVE REPAIRER DIESEL.EMBROIDERY ASSISTANT Work Phone: [facility] 12-23-2022 13:31-0400 Systolic blood pressure 100 mm[Hg] Uyen Nuñez LOCOMOTIVE REPAIRER DIESEL.EMBROIDERY ASSISTANT Work Phone: [facility] 11-02-2022 13:11-0400 Body temperature 98.4 [degF] Treatment Wstr Work Phone: [facility] 11-02-2022 13:11-0400 Diastolic blood pressure 64 mm[Hg] Treatment Wstr Work Phone: [facility] 11-02-2022 13:11-0400 Heart rate 89 /min Treatment Wstr Work Phone: [facility] 11-02-2022 13:11-0400 Respiratory rate 16 /min Treatment Wstr Work Phone: [facility] 11-02-2022 13:11-0400 SaO2% (BldA) [Mass fraction] 97 % Treatment Wstr Work Phone: [facility] 11-02-2022 13:11-0400 Systolic blood pressure 93 mm[Hg] Treatment Wstr Work Phone: [facility] 07-15-2022 08:24-0500 Body temperature 97.81 [degF] Treatment Wstr Work Phone: [facility] 07-15-2022 08:24-0500 Body weight 90.72 kg Treatment Wstr Work Phone: [facility] 07-15-2022 08:24-0500 Diastolic blood pressure 64 mm[Hg] Treatment Wstr Work Phone: [facility] 07-15-2022 08:24-0500 Heart rate 83 /min Treatment Wstr Work Phone: [facility] 07-15-2022 08:24-0500 Systolic blood pressure 113 mm[Hg] Treatment Wstr Work Phone: [facility] 02-17-2022 15:05-0400 Body weight 89.36 kg Annia Shoemaker MD Work Phone: [facility] 02-17-2022 15:05-0400 Diastolic blood pressure 70 mm[Hg] Annia Shoemaker MD Work Phone: [facility] 02-17-2022 15:05-0400 Systolic blood pressure 120 mm[Hg] Annia Shoemaker MD Work Phone: [facility] 02-09-2022 10:29-0400 Body temperature 98.01 [degF] Treatment Wstr Work Phone: [facility] 02-09-2022 10:29-0400 Diastolic blood pressure 69 mm[Hg] Treatment Wstr Work Phone: [facility] 02-09-2022 10:29-0400 Heart rate 89 /min Treatment Wstr Work Phone: [facility] 02-09-2022 10:29-0400 Systolic blood pressure 118 mm[Hg] Treatment Wstr Work Phone: [facility] 01-26-2022 11:46-0400 Body temperature 97.7 [degF] Treatment Wstr Work Phone: [facility] 01-26-2022 11:46-0400 Body weight 88 kg Treatment Wstr Work Phone: [facility] 01-26-2022 11:46-0400 Diastolic blood pressure 71 mm[Hg] Treatment Wstr Work Phone: [facility] 01-26-2022 11:46-0400 Heart rate 100 /min Treatment Wstr Work Phone: [facility] 01-26-2022 11:46-0400 Respiratory rate 18 /min Treatment Wstr Work Phone: [facility] 01-26-2022 11:46-0400 SaO2% (BldA) [Mass fraction] 99 % Treatment Wstr Work Phone: [facility] 01-26-2022 11:46-0400 Systolic blood pressure 117 mm[Hg] Treatment Wstr Work Phone: [facility] 01-08-2022 14:34-0400 Body weight 88.45 kg Annia Shoemaker MD Work Phone: [facility] 01-08-2022 14:34-0400 Diastolic blood pressure 66 mm[Hg] Annia Shoemaker MD Work Phone: [facility] 01-08-2022 14:34-0400 Systolic blood pressure 110 mm[Hg] Annia Shoemaker MD Work Phone: [facility] 01-08-2022 08:12-0400 Body height 157.5 cm Nida Huynh MD Work Phone: [facility] 01-08-2022 08:12-0400 Body temperature 97.9 [degF] Nida Huynh MD Work Phone: [facility] 01-08-2022 08:12-0400 Body weight 88 kg Nida Huynh MD Work Phone: [facility] 01-08-2022 08:12-0400 Diastolic blood pressure 64 mm[Hg] Nida Huynh MD Work Phone: [facility] 01-08-2022 08:12-0400 Heart rate 97 /min Nida Huynh MD Work Phone: [facility] 01-08-2022 08:12-0400 SaO2% (BldA) [Mass fraction] 97 % Nida Huynh MD Work Phone: [facility] 01-08-2022 08:12-0400 Systolic blood pressure 100 mm[Hg] Nida Huynh MD Work Phone: [facility] 12-31-2021 14:43-0400 Body weight 88.18 kg Daisy Dayanara LOCOMOTIVE REPAIRER DIESEL.EMBROIDERY ASSISTANT Work Phone: [facility] 12-31-2021 14:43-0400 Diastolic blood pressure 80 mm[Hg] Daisy Dayanara LOCOMOTIVE REPAIRER DIESEL.EMBROIDERY ASSISTANT Work Phone: [facility] 12-31-2021 14:43-0400 Heart rate 89 /min Daisy Dayanara LOCOMOTIVE REPAIRER DIESEL.EMBROIDERY ASSISTANT Work Phone: [facility] 12-31-2021 14:43-0400 Respiratory rate 16 /min Daisy Dayanara LOCOMOTIVE REPAIRER DIESEL.EMBROIDERY ASSISTANT Work Phone: [facility] 12-31-2021 14:43-0400 SaO2% (BldA) [Mass fraction] 99 % Daisy Dayanara LOCOMOTIVE REPAIRER DIESEL.EMBROIDERY ASSISTANT Work Phone: [facility] 12-31-2021 14:43-0400 Systolic blood pressure 116 mm[Hg] Daisy Dayanara LOCOMOTIVE REPAIRER DIESEL.EMBROIDERY ASSISTANT Work Phone: [facility] 12-03-2021 15:43-0400 Body height 157.5 cm Tia Kalka PA-C Work Phone: [facility] 12-03-2021 15:43-0400 Body weight 89.95 kg Tia Kalka PA-C Work Phone: [facility] 12-03-2021 15:43-0400 Diastolic blood pressure 82 mm[Hg] Tia Kalka PA-C Work Phone: [facility] 12-03-2021 15:43-0400 Heart rate 87 /min Tia Kalka PA-C Work Phone: [facility] 12-03-2021 15:43-0400 Systolic blood pressure 114 mm[Hg] Tia Osei PA-C Work Phone: [facility] 11-24-2021 09:29-0400 Body temperature 98.49 [degF] Jess Noel LOCOMOTIVE REPAIRER DIESEL.EMBROIDERY ASSISTANT Work Phone: [facility] 11-24-2021 09:29-0400 Body weight 87.09 kg Jess Noel LOCOMOTIVE REPAIRER DIESEL.EMBROIDERY ASSISTANT Work Phone: [facility] 11-24-2021 09:29-0400 Diastolic blood pressure 68 mm[Hg] Jess Noel LOCOMOTIVE REPAIRER DIESEL.EMBROIDERY ASSISTANT Work Phone: [facility] 11-24-2021 09:29-0400 Heart rate 94 /min Jess Noel LOCOMOTIVE REPAIRER DIESEL.EMBROIDERY ASSISTANT Work Phone: [facility] 11-24-2021 09:29-0400 Respiratory rate 16 /min Jess Noel LOCOMOTIVE REPAIRER DIESEL.EMBROIDERY ASSISTANT Work Phone: [facility] 11-24-2021 09:29-0400 SaO2% (BldA) [Mass fraction] 98 % Jess Noel LOCOMOTIVE REPAIRER DIESEL.EMBROIDERY ASSISTANT Work Phone: [facility] 11-24-2021 09:29-0400 Systolic blood pressure 108 mm[Hg] Jess Noel LOCOMOTIVE REPAIRER DIESEL.EMBROIDERY ASSISTANT Work Phone: [facility] 11-19-2021 15:17-0400 Body weight 89.36 kg Annia Shoemaker MD Work Phone: [facility] 11-19-2021 15:17-0400 Diastolic blood pressure 68 mm[Hg] Annia Shoemaker MD Work Phone: [facility] 11-19-2021 15:17-0400 Systolic blood pressure 110 mm[Hg] Annia Shoemaker MD Work Phone: [facility] 11-05-2021 15:18-0400 Body weight 88 kg Nurse Wstay Work Phone: [facility] 11-05-2021 15:18-0400 Diastolic blood pressure 70 mm[Hg] Nurse Wstr Work Phone: [facility] 11-05-2021 15:18-0400 Systolic blood pressure 114 mm[Hg] Nurse Wstr Work Phone: [facility] 10-02-2021 11:25-0400 Body temperature 97.9 [degF] Alicia Reynolds LOCOMOTIVE REPAIRER DIESEL.EMBROIDERY ASSISTANT Work Phone: [facility] 10-02-2021 11:25-0400 Body weight 87.27 kg Alicia Reynolds LOCOMOTIVE REPAIRER DIESEL.EMBROIDERY ASSISTANT Work Phone: [facility] 10-02-2021 11:25-0400 Diastolic blood pressure 80 mm[Hg] Alicia Reynolds LOCOMOTIVE REPAIRER DIESEL.EMBROIDERY ASSISTANT Work Phone: [facility] 10-02-2021 11:25-0400 Heart rate 88 /min Aliica Reynolds LOCOMOTIVE REPAIRER DIESEL.EMBROIDERY ASSISTANT Work Phone: [facility] 10-02-2021 11:25-0400 Respiratory rate 18 /min Alicia Reynolds LOCOMOTIVE REPAIRER DIESEL.EMBROIDERY ASSISTANT Work Phone: [facility] 10-02-2021 11:25-0400 SaO2% (BldA) [Mass fraction] 97 % Alicia Reynolds LOCOMOTIVE REPAIRER DIESEL.EMBROIDERY ASSISTANT Work Phone: [facility] 10-02-2021 11:25-0400 Systolic blood pressure 122 mm[Hg] Alicia Reynolds LOCOMOTIVE REPAIRER DIESEL.EMBROIDERY ASSISTANT Work Phone: [facility] 09-17-2021 11:09-0400 Body height 157.5 cm Eddy Valencia MD Work Phone: [facility] 09-17-2021 11:09-0400 Body weight 86.18 kg Eddy Valencia MD Work Phone: [facility] 09-17-2021 11:09-0400 Diastolic blood pressure 79 mm[Hg] Eddy Valencia MD Work Phone: [facility] 09-17-2021 11:09-0400 Heart rate 84 /min Eddy Valencia MD Work Phone: [facility] 09-17-2021 11:09-0400 Systolic blood pressure 101 mm[Hg] Eddy Valencia MD Work Phone: [facility] 08-16-2021 12:06-0400 Body temperature 98.4 [degF] [facility] LOCOMOTIVE REPAIRER DIESEL.EMBROIDERY ASSISTANT Work Phone: [facility] 08-16-2021 12:06-0400 Body weight 87.45 kg [facility] LOCOMOTIVE REPAIRER DIESEL.EMBROIDERY ASSISTANT Work Phone: [facility] 08-16-2021 12:06-0400 Diastolic blood pressure 80 mm[Hg] [facility] LOCOMOTIVE REPAIRER DIESEL.EMBROIDERY ASSISTANT Work Phone: [facility] 08-16-2021 12:06-0400 Heart rate 95 /min [facility] LOCOMOTIVE REPAIRER DIESEL.EMBROIDERY ASSISTANT Work Phone: [facility] 08-16-2021 12:06-0400 Respiratory rate 14 /min [facility] LOCOMOTIVE REPAIRER DIESEL.EMBROIDERY ASSISTANT Work Phone: [facility] 08-16-2021 12:06-0400 SaO2% (BldA) [Mass fraction] 99 % [facility] LOCOMOTIVE REPAIRER DIESEL.EMBROIDERY ASSISTANT Work Phone: [facility] 08-16-2021 12:06-0400 Systolic blood pressure 118 mm[Hg] [facility] LOCOMOTIVE REPAIRER DIESEL.EMBROIDERY ASSISTANT Work Phone: [facility] Encounters Encounter Date Encounter Type Care Provider Facility Start: 05-05-2023 End: 05-05-2023 ambulatory DRAKE HENDERSON Facility:[facility] Start: 03-15-2023 Telephone encounter Tia lopez PA-C Work Phone: [facility] Procedures Date Procedure Procedure Detail Performing Clinician Start: 02-17-2022 INFLUENZA VACCINE QUADRIVALENT 6 MO - 64 YRS IM Annia Shoemaker MD Work Phone: Start: 07-18-2022 STREP A MOLECULAR (POC) Jess Cohen LOCOMOTIVE REPAIRER DIESEL.EMBROIDERY ASSISTANT Work Phone: Start: 11-05-2021 Urine test visual color cmprsn meths Cierra Mcmillan MD Work Phone: Start: 10-02-2021 STREP A MOLECULAR (POC) Alicia Reynolds LOCOMOTIVE REPAIRER DIESEL.EMBROIDERY ASSISTANT Work Phone: Start: 08-15-2021 Ct abdomen & pelvis w/contrast material Kath Sosa MD Work Phone: Start: 05-06-2020 Adult depression scr eening assessment Vane Malave LOCOMOTIVE REPAIRER DIESEL.[facility] Work Phone: Start: 09-20-2019 Antibody screen Plan of Treatment Date Care Activity Detail Author Start: 03-16-2027 Urine microalbumin profile DTa P,Tdap,Td Vaccine (11 - Td or Tdap) [facility] Start: 05-08-2026 HPV TESTING HPV TESTING [facility] Start: 05-08-2026 PAP TESTING PAP TESTING [facility] Start: 07-17-2025 Urine microalbumin profile DTA P,TDAP,TD (8 - Td or Tdap) [facility] Start: 12-24-2023 COVID-19 VACCINE (2 - Tejas risk series) COVID-19 VACCINE (2 - Tejas risk series) [facility] Immunizations Immunization Date Immunization Notes Care Provider Fa cili 12-23-2022 pneumococcal (PCV20) vaccine, 20 valent (PREVNAR 20) Uyen Nuñez LOCOMOTIVE REPAIRER DIESEL.[facility] Work Phone: [facility] 12-23-2022 pneumococcal Conjuga te, unspecified formulation Uyen Nuñez LOCOMOTIVE REPAIRER DIESEL.EMBROIDERY ASSISTANT Work Phone: [facility] Work Phone: 02-17-2022 Human Papillomavirus 9-valent vaccine Annia Shoemaker MD Work Phone: [facility] 02-17-2022 influenza, injectabl e, quadrivalent, contains preservative Annia Shoemaker MD Work Phone: [facility] 02-17-2022 influenza virus vacc ine, unspecified formulation Tia Osei PA-C Work Phone: [facility] 05-08-2021 Human Papillomavirus 9-valent vaccine Vane Malvae LOCOMOTIVE REPAIRER DIESEL.[facility] Work Phone: [facility] Work Phone: 07-18-2015 tetanus toxoid, redu ray diphtheria toxoid, and acellular pertussis vaccine, adsorbed Vane Malave LOCOMOTIVE REPAIRER DIESEL.[facility] Work Phone: [facility] 03-28-2015 influenza, injectabl e, quadrivalent, contains preservative Vane Malave LOCOMOTIVE REPAIRER DIESEL.[facility] Work Phone: [facility] 02-08-2012 influenza virus vacc ine, unspecified formulation Vane Malave LOCOMOTIVE REPAIRER DIESEL.[facility] Work Phone: [facility] 05-01-2010 human papilloma viru s vaccine, quadrivalent Vane Malave LOCOMOTIVE REPAIRER DIESEL.[facility] Work Phone: [facility] Work Phone: 05-01-2010 influenza virus vacc ine, unspecified formulation Vane Malave LOCOMOTIVE REPAIRER DIESEL.[facility] Work Phone: [facility] Work Phone: 05-01-2010 Meningococcal, MCV4, unspecified conjugate formulation(groups A, C, Y and W-135) Vane Malave LOCOMOTIVE REPAIRER DIESEL.[facility] Work Phone: [facility] Work Phone: 05-01-2010 tetanus toxoid, redu ray diphtheria toxoid, and acellular pertussis vaccine, adsorbed Vane Malave LOCOMOTIVE REPAIRER DIESEL.[facility] Work Phone: [facility] Work Phone: 01-11-2004 hepatitis B vaccine, pediatric or pediatric/adolescent dosage Vane Malave LOCOMOTIVE REPAIRER DIESEL.[facility] Work Phone: [facility] Work Phone: 01-11-2004 hepatitis B vaccine, unspecified formulation Alicia Reynolds LOCOMOTIVE REPAIRER DIESEL.[facility] Work Phone: [facility] 01-11-2003 diphtheria, tetanus toxoids and acellular pertussis vaccine Vane Malave LOCOMOTIVE REPAIRER DIESEL.[facility] Work Phone: [facility] Work Phone: 01-11-2003 hepatitis B vaccine, pediatric or pediatric/adolescent dosage Vane Malave LOCOMOTIVE REPAIRER DIESEL.EMBROIDERY ASSISTANT Work Phone: [facility] Work Phone: 01-27-1996 diphtheria, tetanus toxoids and acellular pertussis vaccine Vane Malave LOCOMOTIVE REPAIRER DIESEL.EMBROIDERY ASSISTANT Work Phone: [facility] Work Phone: 01-27-1996 measles, mumps and rubella virus vaccine Vane Malave LOCOMOTIVE REPAIRER DIESEL.[facility] Work Phone: [facility] Work Phone: 01-27-1996 poliovirus vaccine, inactivated Vane Malave LOCOMOTIVE REPAIRER DIESEL.[facility] Work Phone: [facility] Work Phone: 03-03-1994 diphtheria, tetanus toxoids and acellular pertussis vaccine Vane Malave LOCOMOTIVE REPAIRER DIESEL.[facility] Work Phone: [facility] Work Phone: 03-03-1994 poliovirus vaccine, inactivated Vane Malave LOCOMOTIVE REPAIRER DIESEL.[facility] Work Phone: [facility] Work Phone: 01-02-1994 diphtheria, tetanus toxoids and acellular pertussis vaccine Vane Malave LOCOMOTIVE REPAIRER DIESEL.[facility] Work Phone: [facility] Work Phone: 01-02-1994 haemophilus influenz ae type b vaccine, HbOC conjugate Vane Malave LOCOMOTIVE REPAIRER DIESEL.EMBROIDERY ASSISTANT Work Phone: [facility] Work Phone: 01-02-1994 poliovirus vaccine, inactivated Vane Malave LOCOMOTIVE REPAIRER DIESEL.[facility] Work Phone: [facility] Work Phone: 06-03-1993 diphtheria, tetanus toxoids and acellular pertussis vaccine Vane Malave LOCOMOTIVE REPAIRER DIESEL.[facility] Work Phone: [facility] Work Phone: 06-03-1993 measles, mumps and rubella virus vaccine Vane Malave LOCOMOTIVE REPAIRER DIESEL.EMBROIDERY ASSISTANT Work Phone: [facility] Work Phone: 06-03-1993 poliovirus vaccine, inactivated Vane Malave LOCOMOTIVE REPAIRER DIESEL.EMBROIDERY ASSISTANT Work Phone: [facility] Work Phone: Payers Date Payer Category Payer Medicaid [id number] 2020 Medicaid [employer] [id number] 2020-Present [phone] [address] [place] [address] Medicaid [id number] 2020 Medicaid [id number] 2020 Unknown MMO MMO [employer] [id number] 2020-Present [phone] [address] [place] [address] O [id number] 2019 Unknown [id number] 2019 Unknown [id number] 2018 Unknown [id number] 2018 Unknown [id number] 2018 Unknown [id number] 1990 Unknown [id number] 1990 Unknown [id number] Social History Date Type Detail Facility Start: 07-23-2010 End: 12-31-2021 Tobacco smoking status NHIS Never smoked tobacco [facility] Work Phone: Start: 07-23-2010 End: 12-31-2021 Tobacco use and exposure Smokeless tobacco non-user [facility] Work Phone: Start: 07-23-2021 End: 02-10-2023 Alcohol intake Current non-drinker of alcohol (finding) [facility] Start: 05-06-2020 History SDOH Alcohol Frequency 1 [facility] Start: 05-06-2020 History SDOH Alcohol Std Drinks 98 [facility] Start: 10-23-2019 End: 05-06-2020 History SDOH Social Connections Phone 5 [facility] Start: 05-06-2020 History SDOH Social Connections Get Together 3 [facility] Start: 05-06-2020 History SDOH Social Connections Meetings 2 [facility] Start: 05-06-2020 History SDOH Physica l Activity DPW 0 [facility] Start: 09-14-2019 Education 16 [facility] Start: 1990 Sex Assigned At Not on file [facility] Start: 07-13-2021 End: 02-09-2022 Exposure to SARS-CoV-2 (event) Not sure [facility] Start: 11-14-2021 End: 12-03-2021 Exposure to SARS-CoV-2 (event) Yes [facility] Work Phone: Start: 05-06-2020 End: 09-17-2022 History of Social function [facility] Start: 05-06-2020 End: 09-17-2022 Social connection and isolation panel [facility] Active Member of Clu bs or Organizations Not on file [facility] Are you now , , , , never or living with a partner? [facility] How often to you hav e a drink containing alcohol? Never [facility] Do you feel stress - tense, restless, nervous, or anxious, or unable to sleep at night because your mind is troubled all the time - these days [OSQ] Not at all [facility] (I/We) worried wheth er (my/our) food would run out before (I/we) got money to buy more. Never true [facility] At any time in the p ast 12 months, were you homeless or living in care home [including now]? No [facility] Clinical Notes 07-23-2015 to 05-05-2023 Telephone Encounter - Jovanni Palacios MA - 03/16/2023 11:08 AM ESTTelephone Encounter - Uyen Nuñez APRN.CNP - 12/30/2022 6:37 PM EDNida Mejia LPN - 12/23/2022 1:59 PM EDT Note Date & Type Note Facility 05-05-2023 Note HNO ID: [id number] Author: Jesús Watkins APRN.EMBROIDERY ASSISTANT Service: ? Author Type: Nurse Practitioner Type: Progress Notes Filed: 05/05/2023 11:32 AM Note Text: Subjective HPI Nontoxic-appearing female presents urgent care chief complaint cough chest congestion. Duration of symptoms 5 days. Associated symptoms cough chest congestion sore throat headache rhinorrhea. New onset ear pain 2 days. No otorrhea. No ear trauma. Is able to hear. Sick contact similar signs symptoms. No OTC medication use today. Denies chance of . Is not breast-feeding. Denies any fever body aches chills productive cough chest pain shortness of breath pleuritic pain hemoptysis nausea vomiting abdominal pain change in bowel or bladder habits. Past medical history prescription medication use and allergies reviewed. .Patient presents with: Cough: Right ear pain x4 days PAST MEDICAL HISTORY Diagnosis Date Anemia Asthma Impaired fasting glucose 09/2014 Miscarriage Unspecified asthma(493.90) PAST SURGICAL HISTORY Procedure Laterality Date CHOLECYSTECTOMY HX 2016 COLONOSCOPY 07/23/2021 EGD 07/23/2021 INSERTION OF IUD 06/11/2009 Mirena IUD REMOVAL ([employer] DEPT)_*[place] 02/2010 NEXPLANON INSERTION 03/19/2014,10/2015 left arm NEXPLANON REMOVAL 04/08/2017 PAST SURGICAL HISTORY OF Left 12/29/2017 ORIF medial and lateral malleolus of trimalleolar ankle fracture; Dr. Blane Ramesh REPAIR UMBILICAL HERNIA 01/15/2022 SALPINGECTOMY Bilateral 01/15/2022 laparoscopic TYMPANOSTOMY LOCAL/TOPICAL ANESTHESIA ALLERGIES Morphine and Sudafed [Pseudoephedrine Hcl] MEDICATIONS Cholecalciferol, Vitamin D3, 125 mcg (5,000 unit) cap Take 1 capsule by mouth once daily. dicyclomine (BENTYL) 10 mg capsule Take 1 capsule by mouth three times daily as needed (for abdominal pain). budesonide, enteric coated (ENTOCORT EC) 3 mg 24 hr capsule take 3 capsules by mouth once daily for 30 DAYS, THEN DECREASE TO... (REFER TO PRESCRIPTION NOTES). SLOW RELEASE IRON 142 mg (45 mg iron) TbER Take 45 mg by mouth twice daily with meals. fluticasone (FLONASE) 50 mcg/actuation nasal spray Use 2 Sprays in each nostril once daily. Rinse mouth after use. albuterol HFA (PROVENTIL HFA, VENTOLIN HFA) 90 mcg/actuation inhaler Inhale 2 Puffs as instructed every 2 hours as needed for wheezing/shortness of breath. Mesalamine (PENTASA) 500 mg CR capsule Take 2 capsules by mouth four times daily. FAMILY HISTORY Problem Relation Age of Onset No Known Problems Mother No Known Problems Father No Known Problems Sister No Known Problems Sister No Known Problems Sister No Known Problems Sister No Known Problems Brother No Known Problems Brother No Known Problems Brother No Known Problems Brother Cancer Maternal Grandmother liver and lung Dementia Maternal Grandfather COPD Maternal Grandfather Hyperlipidemia Maternal Grandfather Ulcerative Colitis Maternal Grandfather Diabetes Paternal Grandmother Asthma Son Asthma Son Social History Tobacco Use Smoking status: Never Smokeless tobacco: Never Vaping Use Vaping Use: Never used Substance Use Topics Alcohol use: No Drug use: No BP 116/68 Pulse 76 Temp 36.9 ?C (98.5 ?F) Resp 16 Wt 85 kg (187 lb 6.4 oz) LMP 04/15/2020 (Exact Date) SpO2 98% BMI 34.28 kg/m? Review of Systems Constitutional: Positive for malaise/fatigue. Negative for chills and fever. HENT: Positive for congestion, ear pain, sinus pain and sore throat. Negative for ear discharge. Eyes: Negative for blurred vision, pain, discharge and redness. Respiratory: Positive for cough. Negative for hemoptysis, sputum production, shortness of breath, wheezing and stridor. Cardiovascular: Negative for chest pain. Gastrointestinal: Negative for abdominal pain, diarrhea, nausea and vomiting. Musculoskeletal: Negative for myalgias. Skin: Negative for itching and rash. Neurological: Positive for headaches. Negative for dizziness. Objective Physical Exam Constitutional: General: She is not in acute distress. Appearance: She is not diaphoretic. HENT: Head: Normocephalic. Jaw: No trismus, tenderness, swelling or pain on movement. Right Ear: Ear canal and external ear normal. Left Ear: Tympanic membrane, ear canal and external ear normal. Ears: Comments: Perforation right TM noted. Nose: Congestion present. Mouth/Throat: Mouth: Mucous membranes are moist. Pharynx: Oropharynx is clear. Uvula midline. No pharyngeal swelling, oropharyngeal exudate, posterior oropharyngeal erythema or uvula swelling. Eyes: Conjunctiva/sclera: Conjunctivae normal. Pupils: Pupils are equal, round, and reactive to light. Cardiovascular: Rate and Rhythm: Normal rate and regular rhythm. Heart sounds: Normal heart sounds. Pulmonary: Effort: Pulmonary effort is normal. No tachypnea, accessory muscle usage or respiratory distress. Breath sounds: Normal breath sounds. (more content not included)... [facility] 03-16-2023 Miscellaneous Notes Remicade therapy plan faxed to [facility] office at [phone] documented in this encounter [facility] 02-10-2023 Note HNO ID: [id number] Author: Jesús Watkins APRN.EMBROIDERY ASSISTANT Service: ? Author Type: Nurse Practitioner Type: Progress Notes Filed: 02/10/2023 7:02 PM Note Text: Subjective HPI Nontoxic-appearing female presents to urgent care with chief complaint of upper respiratory tract like infection. Duration of symptoms 3 days. Associated symptoms sore throat, nasal congestion, ear pain, nasal discharge and nonproductive cough. Patient denies the use of any ygzl-prj-liffiyd medications or home remedies for symptom management. Patient states recent sick contacts with similar signs and symptoms. Patient denies any productive cough, fever, chest pain, shortness of breath, pleuritic pain, rash, abdominal pain, nausea, vomiting or change in bowel or bladder habit. Past medical history prescription medication use allergies reviewed. Denies chance of . Is not breast-feeding. .Patient presents with: Sore Throat: L ear pain x3 days PAST MEDICAL HISTORY Diagnosis Date Anemia Asthma Impaired fasting glucose 09/2014 Miscarriage Unspecified asthma(493.90) PAST SURGICAL HISTORY Procedure Laterality Date CHOLECYSTECTOMY HX 2016 COLONOSCOPY 07/23/2021 EGD 07/23/2021 INSERTION OF IUD 06/11/2009 Mirena IUD REMOVAL ([employer] DEPT)_*[place] 02/2010 NEXPLANON INSERTION 03/19/2014,10/2015 left arm NEXPLANON REMOVAL 04/08/2017 PAST SURGICAL HISTORY OF Left 12/29/2017 ORIF medial and lateral malleolus of trimalleolar ankle fracture; Dr. Blane Ramesh REPAIR UMBILICAL HERNIA 01/15/2022 SALPINGECTOMY Bilateral 01/15/2022 laparoscopic TYMPANOSTOMY LOCAL/TOPICAL ANESTHESIA ALLERGIES Morphine and Sudafed [Pseudoephedrine Hcl] MEDICATIONS Cholecalciferol, Vitamin D3, 125 mcg (5,000 unit) cap Take 1 capsule by mouth once daily. Mesalamine (PENTASA) 500 mg CR capsule Take 2 capsules by mouth four times daily. dicyclomine (BENTYL) 10 mg capsule Take 1 capsule by mouth three times daily as needed (for abdominal pain). budesonide, enteric coated (ENTOCORT EC) 3 mg 24 hr capsule take 3 capsules by mouth once daily for 30 DAYS, THEN DECREASE TO... (REFER TO PRESCRIPTION NOTES). SLOW RELEASE IRON 142 mg (45 mg iron) TbER Take 45 mg by mouth twice daily with meals. fluticasone (FLONASE) 50 mcg/actuation nasal spray Use 2 Sprays in each nostril once daily. Rinse mouth after use. albuterol HFA (PROVENTIL HFA, VENTOLIN HFA) 90 mcg/actuation inhaler Inhale 2 Puffs as instructed every 2 hours as needed for wheezing/shortness of breath. FAMILY HISTORY Problem Relation Age of Onset No Known Problems Mother No Known Problems Father No Known Problems Sister No Known Problems Sister No Known Problems Sister No Known Problems Sister No Known Problems Brother No Known Problems Brother No Known Problems Brother No Known Problems Brother Cancer Maternal Grandmother liver and lung Dementia Maternal Grandfather COPD Maternal Grandfather Hyperlipidemia Maternal Grandfather Ulcerative Colitis Maternal Grandfather Diabetes Paternal Grandmother Asthma Son Asthma Son Social History Tobacco Use Smoking status: Never Smokeless tobacco: Never Vaping Use Vaping Use: Never used Substance Use Topics Alcohol use: No Drug use: No BP 100/68 Pulse 74 Temp 36.9 ?C (98.4 ?F) Resp 18 Wt 85.1 kg (187 lb 9.6 oz) LMP 04/15/2020 (Exact Date) SpO2 98% BMI 34.31 kg/m? Review of Systems Constitutional: Positive for malaise/fatigue. Negative for chills and fever. HENT: Positive for congestion and ear pain. Negative for ear discharge, sinus pain and sore throat. Eyes: Negative for blurred vision, pain, discharge and redness. Respiratory: Positive for cough. Negative for hemoptysis, sputum production, shortness of breath, wheezing and stridor. Cardiovascular: Negative for chest pain. Gastrointestinal: Negative for abdominal pain, diarrhea, nausea and vomiting. Musculoskeletal: Positive for myalgias. Skin: Negative for itching and rash. Neurological: Positive for headaches. Negative for dizziness. Objective Physical Exam Constitutional: General: She is not in acute distress. Appearance: She is not diaphoretic. HENT: Head: Normocephalic. Jaw: No trismus, tenderness, swelling or pain on movement. Right Ear: Tympanic membrane, ear canal and external ear normal. Left Ear: Tympanic membrane, ear canal and external ear normal. Nose: Congestion present. Mouth/Throat: Mouth: Mucous membranes are moist. Pharynx: Oropharynx is clear. Uvula midline. No pharyngeal swelling, oropharyngeal exudate, posterior oropharyngeal erythema or uvula swelling. Eyes: Conjunctiva/sclera: Conjunctivae normal. Pupils: Pupils are equal, round, and reactive to light. Cardiovascular: Rate and Rhythm: Normal rate and regular rhythm. Heart sounds: Normal heart sounds. Pulmonary: Effort: Pulmonary effort is normal. No tachypnea, accessory muscle usage or respira (more content not included)... [facility] 12-30-2022 Miscellaneous Notes Perfect, continue this regimen then. Thank you, Uyen Nuñez APRN.EMBROIDERY ASSISTANT Spoke with pt gave information provided. She states was just prescribed vitamin d . Just picked it up last week and started taking. Tried calling patient just rang and rang with no voicemail Nichole Beck Ma Please call patient and let her know that lab work results look great!! Continue with current iron supplement. Vitamin D remains low--- See if she is taking her 5000 unit Vitamin D3 supplement daily. If not, restart this regimen routinely. If so, we need to increase this dosage. Keep up the good work! Thank you, Uyen Nuñez APRN.EMBROIDERY ASSISTANT documented in this encounter [facility] 12-23-2022 Note HNO ID: [id number] Author: Uyen Nuñez APRN.EMBROIDERY ASSISTANT Service: ? Author Type: Nurse Practitioner Type: Progress Notes Filed: 12/23/2022 2:46 PM Note Text: Chief Complaint Patient presents with: Physical HPI Mary Ruiz is a 32 year old female who presents here today for Above Complaints. Mary is an established patient of Dr. Henok DO and myself. Here for routine physical. No concerns or complaints. Chrons disease -- Follows with GI, last appointment 10/26/22. Feeling great on current GI regimen. Past medical history, appointments, medications, allergies reviewed. Previous Medical History PAST MEDICAL HISTORY Diagnosis Date Anemia Asthma Impaired fasting glucose 09/2014 Miscarriage Unspecified asthma(493.90) Previous Surgical History PAST SURGICAL HISTORY Procedure Laterality Date CHOLECYSTECTOMY HX 2016 COLONOSCOPY 07/23/2021 EGD 07/23/2021 INSERTION OF IUD 06/11/2009 Mirena IUD REMOVAL ([employer] DEPT)_*[place] 02/2010 NEXPLANON INSERTION 03/19/2014,10/2015 left arm NEXPLANON REMOVAL 04/08/2017 PAST SURGICAL HISTORY OF Left 12/29/2017 ORIF medial and lateral malleolus of trimalleolar ankle fracture; Dr. Blane Ramesh REPAIR UMBILICAL HERNIA 01/15/2022 SALPINGECTOMY Bilateral 01/15/2022 laparoscopic TYMPANOSTOMY LOCAL/TOPICAL ANESTHESIA Family History FAMILY HISTORY Problem Relation Age of Onset No Known Problems Mother No Known Problems Father No Known Problems Sister No Known Problems Sister No Known Problems Sister No Known Problems Sister No Known Problems Brother No Known Problems Brother No Known Problems Brother No Known Problems Brother Cancer Maternal Grandmother liver and lung Dementia Maternal Grandfather COPD Maternal Grandfather Hyperlipidemia Maternal Grandfather Ulcerative Colitis Maternal Grandfather Diabetes Paternal Grandmother Asthma Son Asthma Son Patient Allergies ALLERGIES Allergen Reactions Morphine Rash, GI Upset Sudafed [Pseudoephe* Intolerance heart palpations and loopy Current Medications Current Outpatient Medications on File Prior to Visit Medication Sig Mesalamine (PENTASA) 500 mg CR capsule Take 2 capsules by mouth four times daily. dicyclomine (BENTYL) 10 mg capsule Take 1 capsule by mouth three times daily as needed (for abdominal pain). oxyCODONE IR (ROXICODONE) 5 mg immediate release tablet Take 1 tablet by mouth every 8 hours as needed for pain. budesonide, enteric coated (ENTOCORT EC) 3 mg 24 hr capsule take 3 capsules by mouth once daily for 30 DAYS, THEN DECREASE TO... (REFER TO PRESCRIPTION NOTES). SLOW RELEASE IRON 142 mg (45 mg iron) TbER Take 45 mg by mouth twice daily with meals. fluticasone (FLONASE) 50 mcg/actuation nasal spray Use 2 Sprays in each nostril once daily. Rinse mouth after use. medroxyPROGESTERone (DEPO-PROVERA) 150 mg/mL inject 1 milliliter intramuscularly for 1 dose albuterol HFA (PROVENTIL HFA, VENTOLIN HFA) 90 mcg/actuation inhaler Inhale 2 Puffs as instructed every 2 hours as needed for wheezing/shortness of breath. Cholecalciferol, Vitamin D3, 125 mcg (5,000 unit) cap Take 1 capsule by mouth once daily. No current facility-administered medications on file prior to visit. Social History Social History Tobacco Use Smoking status: Never Smokeless tobacco: Never Vaping Use Vaping Use: Never used Substance Use Topics Alcohol use: No Drug use: No REVIEW OF SYSTEMS: as above Reviewed relevant PMHx, PSHx, Social Hx, current medications and allergies. Review of Symptoms REVIEW OF SYSTEMS See HPI. EXAM: BP 100/62 (BP Site: Left Arm, BP Position: Sitting, BP Cuff Size: Regular Adult) Pulse 68 Resp 16 Ht 157.5 cm (5' 2 ) Wt 86.7 kg (191 lb 1.3 oz) LMP 04/15/2020 (Exact Date) BMI 34.95 kg/m? General Appearance: Well appearing, alert, in no acute distress, well-hydrated, well nourished.. Skin: Skin color, texture, turgor normal, no suspicious rashes or lesions. Head: Normocephalic, no masses, lesions, tenderness or abnormalities. Neck: Supple, no adenopathy; thyroid symmetric, normal size, no bruits. Back:no pain to palpation of vertebrae, good flexion and extension, good range of motion, no muscle tenderness, reflexes are 2+ and symmetric, motor and sensory appear to be normal, negative SLR test, no evidence of scoliosis Lungs: Lungs clear to auscultation. No wheezing, rhonchi, rales.. Heart: RRR without murmur, gallop, or rubs. No ectopy. Abdomen: Normal abdominal exam, Abdomen soft, non-tender. Bowel sounds normal. No masses, organomegaly. Neurologic: Gait normal. Reflexes normal and symmetric. Sensation grossly intact.. Health Maintenance List PNEUMOCOCCAL(1 - PCV) Never done MENINGOCOCCAL B: Consider based on risk(1 of 4 - Increased Risk) Never done HEPATITIS B(3 of 3 - Risk 3-dose series) due on 03/07/2004 HIV SCREENING Never done HEPATITIS A(1 of 2 - Risk 2-dose (more content not included)... [facility] 12-23-2022 Nurse Note Pt receives prev stan 20 in office today as ordered. Pt tolerated well. documented in this encounter [facility] 12-23-2022 History of Presen t illness Narrative Chief Complaint Patient presents with: Physical HPI Mary Ruiz is a 32 year old female who presents here today for Above Complaints. Mary is an established patient of Dr. Henderson, and myself. Here for routine physical. No concerns or complaints. Chrons disease -- Follows with GI, last appointment 6/19/23. Feeling great on current GI regimen. Past medical history, appointments, medications, allergies reviewed. Previous Medical History PAST MEDICAL HISTORY Diagnosis Date Anemia Asthma Impaired fasting glucose 09/2014 Miscarriage Unspecified asthma(493.90) Previous Surgical History PAST SURGICAL HISTORY Procedure Laterality Date CHOLECYSTECTOMY HX 2016 COLONOSCOPY 07/23/2021 EGD 07/23/2021 INSERTION OF IUD 06/11/2009 Mirena IUD REMOVAL ([employer] TRA[employer] DEPT)_*FL 02/2010 NEXPLANON INSERTION 03/19/2014,10/2015 left arm NEXPLANON REMOVAL 04/08/2017 PAST SURGICAL HISTORY OF Left 12/29/2017 ORIF medial and lateral malleolus of trimalleolar ankle fracture; Dr. Blane Ramesh REPAIR UMBILICAL HERNIA 01/15/2022 SALPINGECTOMY Bilateral 01/15/2022 laparoscopic TYMPANOSTOMY LOCAL/TOPICAL ANESTHESIA Family History FAMILY HISTORY Problem Relation Age of Onset No Known Problems Mother No Known Problems Father No Known Problems Sister No Known Problems Sister No Known Problems Sister No Known Problems Sister No Known Problems Brother No Known Problems Brother No Known Problems Brother No Known Problems Brother Cancer Maternal Grandmother liver and lung Dementia Maternal Grandfather COPD Maternal Grandfather Hyperlipidemia Maternal Grandfather Ulcerative Colitis Maternal Grandfather Diabetes Paternal Grandmother Asthma Son Asthma Son Patient Allergies ALLERGIES Allergen Reactions Morphine Rash, GI Upset Sudafed [Pseudoephe* Intolerance heart palpations and loopy Current Medications Current Outpatient Medications on File Prior to Visit Medication Sig Mesalamine (PENTASA) 500 mg CR capsule Take 2 capsules by mouth four times daily. dicyclomine (BENTYL) 10 mg capsule Take 1 capsule by mouth three times daily as needed (for abdominal pain). oxyCODONE IR (ROXICODONE) 5 mg immediate release tablet Take 1 tablet by mouth every 8 hours as needed for pain. budesonide, enteric coated (ENTOCORT EC) 3 mg 24 hr capsule take 3 capsules by mouth once daily for 30 DAYS, THEN DECREASE TO... (REFER TO PRESCRIPTION NOTES). SLOW RELEASE IRON 142 mg (45 mg iron) TbER Take 45 mg by mouth twice daily with meals. fluticasone (FLONASE) 50 mcg/actuation nasal spray Use 2 Sprays in each nostril once daily. Rinse mouth after use. medroxyPROGESTERone (DEPO-PROVERA) 150 mg/mL inject 1 milliliter intramuscularly for 1 dose albuterol HFA (PROVENTIL HFA, VENTOLIN HFA) 90 mcg/actuation inhaler Inhale 2 Puffs as instructed every 2 hours as needed for wheezing/shortness of breath. Cholecalciferol, Vitamin D3, 125 mcg (5,000 unit) cap Take 1 capsule by mouth once daily. No current facility-administered medications on file prior to visit. Social History Social History Tobacco Use Smoking status: Never Smokeless tobacco: Never Vaping Use Vaping Use: Never used Substance Use Topics Alcohol use: No Drug use: No REVIEW OF SYSTEMS: as above Reviewed relevant PMHx, PSHx, Social Hx, current medications and allergies. Review of Symptoms REVIEW OF SYSTEMS See HPI. EXAM: BP 100/62 (BP Site: Left Arm, BP Position: Sitting, BP Cuff Size: Regular Adult) Pulse 68 Resp 16 Ht 157.5 cm (5' 2 ) Wt 86.7 kg (191 lb 1.3 oz) LMP 04/15/2020 (Exact Date) BMI 34.95 kg/m General Appearance: Well appearing, alert, in no acute distress, well-hydrated, well nourished.. Skin: Skin color, texture, turgor normal, no suspicious rashes or lesions. Head: Normocephalic, no masses, lesions, tenderness or abnormalities. Neck: Supple, no adenopathy; thyroid symmetric, normal size, no bruits. Back:no pain to palpation of vertebrae, good flexion and extension, good range of motion, no muscle tenderness, reflexes are 2+ and symmetric, motor and sensory appear to be normal, negative SLR test, no evidence of scoliosis Lungs: Lungs clear to auscultation. No wheezing, rhonchi, rales.. Heart: RRR without murmur, gallop, or rubs. No ectopy. Abdomen: Normal abdominal exam, Abdomen soft, non-tender. Bowel sounds normal. No masses, organomegaly. Neurologic: Gait normal. Reflexes normal and symmetric. Sensation grossly intact.. Health Maintenance List PNEUMOCOCCAL(1 - PCV) Never done MENINGOCOCCAL B: Consider based on risk(1 of 4 - Increased Risk) Never done HEPATITIS B(3 of 3 - Risk 3-dose series) due on 03/07/2004 HIV SCREENING Never done HEPATITIS A(1 of 2 - Risk 2-dose series) Never done SHINGRIX VACCINE(1 of 2) Never done COVID-19 VACCINE(2 - [place] risk series) due on 08/14/2020 DEPRESSION ASSESSMENT Never done INFLUENZA(1) due on 01/08/2023 DTAP,TDAP,TD(8 - Td or Tdap) due on 07/17/2025 PAP TESTING due on 05/08/2026 HPV TESTING due on 05/08/2026 MMR Completed HPV VACCINE Completed HEPATITIS C SCREENING Completed ASSESSMENT/PLAN: 1. Wellness examination - ICD9: V70.0, ICD10: Z00.00 (primary diagnosis) - Counseled on healthy diet and regular exercise - Recommend vitamin containing 0.4 mg of folic acid - Calcium intake with supplements or by diet of 1000 mg/day for under 50, 3701-4493 mg/day for 50+ - Discussed need and benefit for weight loss. BMI 34.95 kg/(m^2) - Follow up for annual exam in one year - LIPID PANEL BASIC - VITAMIN D 25 HYDROXY - CBC + DIFF - IRON + TIBC - FERRITIN BLD 2. Encounter for immunization - ICD9: V03.89, ICD10: Z23 - PNEUMOCOCCAL VACCINE (PREVNAR 20) 3. Vitamin D deficiency - ICD9: 268.9, ICD10: E55.9 - VITAMIN D 25 HYDROXY 4. Crohn's disease without complication, unspecified gastrointestinal tract location (HCC) - ICD9: 555.9, ICD10: K50.90 Stable. Well controlled. Continue with GI recommendations. 5. Iron deficiency anemia, unspecified iron deficiency anemia type - ICD9: 280.9, ICD10: D50.9 Recheck iron levels. - CBC + DIFF - IRON + TIBC - FERRITIN BLD 6. Screening for lipid disorders - ICD9: V77.91, ICD10: Z13.220 - LIPID PANEL BASIC RTO annually and as needed. Prescription instructions reviewed with patient as applicable. Potential red flag symptoms discussed with the patient. Reviewed appropriate action plan to take if red flag symptoms occur. Patient agreeable to treatment plan. Uyen Barroso APRN.[place] [address] [place] [address] documented in this encounter [facility] 11-02-2022 Miscellaneous Notes Pt calling for lab results Zelda Sharp Ma documented in this encounter [facility] 11-02-2022 Note Borderline elevated. Re-evaluation in 4-6 weeks is recommended if clinically indicated. [facility] documented as of this encounter (statuses as of 08/01/2021) [facility]-15[facility]2016 History of Past illness Narrative* Problem Noted Date Resolved Date Abnormal glucose complicating 07/23/19 16 10/31/2015 Overview: 07/23/15 - needs 3hr GTT - KJ Anemia in 07/23/2015 10/31/2015 Overview: 09/12/15 - repeat hb 10 - KJ 08/23/15 - hb stable at 9.6, cont meds, repeat cbc 2-4 weeks - KJ 08/01/15: Normal iron studies, repeat cbc 4 weeks. 07/23/15 - check iron studies, twice daily iron & folic acid, repeat cbc 2-4 weeks - KJ Normal repeat , antepartum 03/01/2015 10/31/2015 Overview: Boy on - [place] Obesity (BMI 30.0-34.9) 09/26/2014 10/31/19 16 Supervision of normal first 01/29/2011 02/08/2012 Routine general medical exam ination at a health care facility 01/13/2008 04/10/2011 documented as of this encounter (statuses as of 08/04/2021) [facility]2016 History of Past illness Narrative* Problem Noted Date Resolved Date Abnormal glucose complicating 07/23/19 16 10/31/2015 Overview: 07/23/15 - needs 3hr GTT - KJ Anemia in 07/23/2015 10/31/2015 Overview: 09/12/15 - repeat hb 10 - KJ 08/23/15 - hb stable at 9.6, cont meds, repeat cbc 2-4 weeks - KJ 08/01/15: Normal iron studies, repeat cbc 4 weeks. 07/23/15 - check iron studies, twice daily iron & folic acid, repeat cbc 2-4 weeks - KJ Normal repeat , antepartum 03/01/2015 10/31/2015 Overview: Boy on us- [place] Obesity (BMI 30.0-34.9) 09/26/2014 10/31/19 16 Supervision of normal first 01/29/2011 02/08/2012 Routine general medical exam ination at a health care facility 01/13/2008 04/10/2011 documented as of this encounter (statuses as of 08/12/2021) [facility]2016 History of Past illness Narrative* Problem Noted Date Resolved Date Abnormal glucose complicating 07/23/19 16 10/31/2015 Overview: 07/23/15 - needs 3hr GTT - KJ Anemia in 07/23/2015 10/31/2015 Overview: 09/12/15 - repeat hb 10 - KJ 08/23/15 - hb stable at 9.6, cont meds, repeat cbc 2-4 weeks - KJ 08/01/15: Normal iron studies, repeat cbc 4 weeks. 07/23/15 - check iron studies, twice daily iron & folic acid, repeat cbc 2-4 weeks - KJ Normal repeat , antepartum 03/01/2015 10/31/2015 Overview: Boy on us- [place] Obesity (BMI 30.0-34.9) 09/26/2014 10/31/19 16 Supervision of normal first 01/29/2011 02/08/2012 Routine general medical exam ination at a health care facility 01/13/2008 04/10/2011 documented as of this encounter (statuses as of 08/16/2021) [facility] History of Past illness Narrative* Problem Noted Date Resolved Date Abnormal glucose complicating 07/23/19 16 10/31/2015 Overview: 07/23/15 - needs 3hr GTT - KJ Anemia in 07/23/2015 10/31/2015 Overview: 09/12/15 - repeat hb 10 - KJ 08/23/15 - hb stable at 9.6, cont meds, repeat cbc 2-4 weeks - KJ 08/01/15: Normal iron studies, repeat cbc 4 weeks. 07/23/15 - check iron studies, twice daily iron & folic acid, repeat cbc 2-4 weeks - KJ Normal repeat , antepartum 03/01/2015 10/31/2015 Overview: Boy on us- [place] Obesity (BMI 30.0-34.9) 09/26/2014 10/31/19 16 Supervision of normal first 01/29/2011 02/08/2012 Routine general medical exam ination at a health care facility 01/13/2008 04/10/2011 documented as of this encounter (statuses as of 08/16/2021) [facility] History of Past illness Narrative* Problem Noted Date Resolved Date Abnormal glucose complicating 07/23/19 16 10/31/2015 Overview: 07/23/15 - needs 3hr GTT - KJ Anemia in 07/23/2015 10/31/2015 Overview: 09/12/15 - repeat hb 10 - KJ 08/23/15 - hb stable at 9.6, cont meds, repeat cbc 2-4 weeks - KJ 08/01/15: Normal iron studies, repeat cbc 4 weeks. 07/23/15 - check iron studies, twice daily iron & folic acid, repeat cbc 2-4 weeks - KJ Normal repeat , antepartum 03/01/2015 10/31/2015 Overview: Boy on us- [place] Obesity (BMI 30.0-34.9) 09/26/2014 10/31/19 16 Supervision of normal first 01/29/2011 02/08/2012 Routine general medical exam ination at a health care facility 01/13/2008 04/10/2011 documented as of this encounter (statuses as of 08/16/2021) [facility] History of Past illness Narrative* Problem Noted Date Resolved Date Abnormal glucose complicating 07/23/19 16 10/31/2015 Overview: 07/23/15 - needs 3hr GTT - KJ Anemia in 07/23/2015 10/31/2015 Overview: 09/12/15 - repeat hb 10 - KJ 08/23/15 - hb stable at 9.6, cont meds, repeat cbc 2-4 weeks - KJ 08/01/15: Normal iron studies, repeat cbc 4 weeks. 07/23/15 - check iron studies, twice daily iron & folic acid, repeat cbc 2-4 weeks - KJ Normal repeat , antepartum 03/01/2015 10/31/2015 Overview: Boy on - [place] Obesity (BMI 30.0-34.9) 09/26/2014 10/31/19 16 Supervision of normal first 01/29/2011 02/08/2012 Routine general medical exam ination at a health care facility 01/13/2008 04/10/2011 documented as of this encounter (statuses as of 09/15/2021) [facility] History of Past illness Narrative* Problem Noted Date Resolved Date Abnormal glucose complicating 07/23/19 16 10/31/2015 Overview: 07/23/15 - needs 3hr GTT - KJ Anemia in 07/23/2015 10/31/2015 Overview: 09/12/15 - repeat hb 10 - KJ 08/23/15 - hb stable at 9.6, cont meds, repeat cbc 2-4 weeks - KJ 08/01/15: Normal iron studies, repeat cbc 4 weeks. MH 07/23/15 - check iron studies, twice daily iron & folic acid, repeat cbc 2-4 weeks - KJ Normal repeat , antepartum 03/01/2015 10/31/2015 Overview: Boy on us- [place] Obesity (BMI 30.0-34.9) 09/26/2014 10/31/19 16 Supervision of normal first 01/29/2011 02/08/2012 Routine general medical exam ination at a health care facility 01/13/2008 04/10/2011 documented as of this encounter (statuses as of 09/17/2021) [facility] History of Past illness Narrative* Problem Noted Date Resolved Date Abnormal glucose complicating 07/23/19 16 10/31/2015 Overview: 07/23/15 - needs 3hr GTT - KJ Anemia in 07/23/2015 10/31/2015 Overview: 09/12/15 - repeat hb 10 - KJ 08/23/15 - hb stable at 9.6, cont meds, repeat cbc 2-4 weeks - KJ 08/01/15: Normal iron studies, repeat cbc 4 weeks. 07/23/15 - check iron studies, twice daily iron & folic acid, repeat cbc 2-4 weeks - KJ Normal repeat , antepartum 03/01/2015 10/31/2015 Overview: Boy on - [place] Obesity (BMI 30.0-34.9) 09/26/2014 10/31/19 16 Supervision of normal first 01/29/2011 02/08/2012 Routine general medical exam ination at a health care facility 01/13/2008 04/10/2011 documented as of this encounter (statuses as of 10/02/2021) [facility]2016 History of Past illness Narrative* Problem Noted Date Resolved Date Abnormal glucose complicating 07/23/19 16 10/31/2015 Overview: 07/23/15 - needs 3hr GTT - KJ Anemia in 07/23/2015 10/31/2015 Overview: 09/12/15 - repeat hb 10 - KJ 08/23/15 - hb stable at 9.6, cont meds, repeat cbc 2-4 weeks - KJ 08/01/15: Normal iron studies, repeat cbc 4 weeks. 07/23/15 - check iron studies, twice daily iron & folic acid, repeat cbc 2-4 weeks - KJ Normal repeat , antepartum 03/01/2015 10/31/2015 Overview: Boy on us- [place] Obesity (BMI 30.0-34.9) 09/26/2014 10/31/19 16 Supervision of normal first 01/29/2011 02/08/2012 Routine general medical exam ination at a health care facility 01/13/2008 04/10/2011 documented as of this encounter (statuses as of 11/05/2021) [facility] History of Past illness Narrative* Problem Noted Date Resolved Date Abnormal glucose complicating 07/23/19 16 10/31/2015 Overview: 07/23/15 - needs 3hr GTT - KJ Anemia in 07/23/2015 10/31/2015 Overview: 09/12/15 - repeat hb 10 - KJ 08/23/15 - hb stable at 9.6, cont meds, repeat cbc 2-4 weeks - KJ 08/01/15: Normal iron studies, repeat cbc 4 weeks. 07/23/15 - check iron studies, twice daily iron & folic acid, repeat cbc 2-4 weeks - KJ Normal repeat , antepartum 03/01/2015 10/31/2015 Overview: Boy on us- [place] Obesity (BMI 30.0-34.9) 09/26/2014 10/31/19 16 Supervision of normal first 01/29/2011 02/08/2012 Routine general medical exam ination at a health care facility 01/13/2008 04/10/2011 documented as of this encounter (statuses as of 11/19/2021) [facility]2016 History of Past illness Narrative* Problem Noted Date Resolved Date Abnormal glucose complicating 07/23/19 16 10/31/2015 Overview: 07/23/15 - needs 3hr GTT - KJ Anemia in 07/23/2015 10/31/2015 Overview: 09/12/15 - repeat hb 10 - KJ 08/23/15 - hb stable at 9.6, cont meds, repeat cbc 2-4 weeks - KJ 08/01/15: Normal iron studies, repeat cbc 4 weeks. 07/23/15 - check iron studies, twice daily iron & folic acid, repeat cbc 2-4 weeks - KJ Normal repeat , antepartum 03/01/2015 10/31/2015 Overview: Boy on us- [place] Obesity (BMI 30.0-34.9) 09/26/2014 10/31/19 16 Supervision of normal first 01/29/2011 02/08/2012 Routine general medical exam ination at a health care facility 01/13/2008 04/10/2011 documented as of this encounter (statuses as of 11/24/2021) [facility] History of Past illness Narrative* Problem Noted Date Resolved Date Abnormal glucose complicating 07/23/19 16 10/31/2015 Overview: 07/23/15 - needs 3hr GTT - KJ Anemia in 07/23/2015 10/31/2015 Overview: 09/12/15 - repeat hb 10 - KJ 08/23/15 - hb stable at 9.6, cont meds, repeat cbc 2-4 weeks - KJ 08/01/15: Normal iron studies, repeat cbc 4 weeks. 07/23/15 - check iron studies, twice daily iron & folic acid, repeat cbc 2-4 weeks - KJ Normal repeat , antepartum 03/01/2015 10/31/2015 Overview: Boy on us- [place] Obesity (BMI 30.0-34.9) 09/26/2014 10/31/19 16 Supervision of normal first 01/29/2011 02/08/2012 Routine general medical exam ination at a health care facility 01/13/2008 04/10/2011 documented as of this encounter (statuses as of 12/03/2021) [facility] History of Past illness Narrative* Problem Noted Date Resolved Date Abnormal glucose complicating 07/23/19 16 10/31/2015 Overview: 07/23/15 - needs 3hr GTT - KJ Anemia in 07/23/2015 10/31/2015 Overview: 09/12/15 - repeat hb 10 - KJ 08/23/15 - hb stable at 9.6, cont meds, repeat cbc 2-4 weeks - KJ 08/01/15: Normal iron studies, repeat cbc 4 weeks. 07/23/15 - check iron studies, twice daily iron & folic acid, repeat cbc 2-4 weeks - KJ Normal repeat , antepartum 03/01/2015 10/31/2015 Overview: Boy on us- [place] Obesity (BMI 30.0-34.9) 09/26/2014 10/31/19 16 Supervision of normal first 01/29/2011 02/08/2012 Routine general medical exam ination at a health care facility 01/13/2008 04/10/2011 documented as of this encounter (statuses as of 12/09/2021) [facility]2016 History of Past illness Narrative* Problem Noted Date Resolved Date Abnormal glucose complicating 07/23/19 16 10/31/2015 Overview: 07/23/15 - needs 3hr GTT - KJ Anemia in 07/23/2015 10/31/2015 Overview: 09/12/15 - repeat hb 10 - KJ 08/23/15 - hb stable at 9.6, cont meds, repeat cbc 2-4 weeks - KJ 08/01/15: Normal iron studies, repeat cbc 4 weeks. 07/23/15 - check iron studies, twice daily iron & folic acid, repeat cbc 2-4 weeks - KJ Normal repeat , antepartum 03/01/2015 10/31/2015 Overview: Boy on us- [place] Obesity (BMI 30.0-34.9) 09/26/2014 10/31/19 16 Supervision of normal first 01/29/2011 02/08/2012 Routine general medical exam ination at a health care facility 01/13/2008 04/10/2011 documented as of this encounter (statuses as of 01/02/2022) [facility] History of Past illness Narrative* Problem Noted Date Resolved Date Abnormal glucose complicating 07/23/19 16 10/31/2015 Overview: 07/23/15 - needs 3hr GTT - KJ Anemia in 07/23/2015 10/31/2015 Overview: 09/12/15 - repeat hb 10 - KJ 08/23/15 - hb stable at 9.6, cont meds, repeat cbc 2-4 weeks - KJ 08/01/15: Normal iron studies, repeat cbc 4 weeks. 07/23/15 - check iron studies, twice daily iron & folic acid, repeat cbc 2-4 weeks - KJ Normal repeat , antepartum 03/01/2015 10/31/2015 Overview: Boy on - [place] Obesity (BMI 30.0-34.9) 09/26/2014 10/31/19 16 Supervision of normal first 01/29/2011 02/08/2012 Routine general medical exam ination at a [facility] care facility 01/13/2008 04/10/2011 documented as of this encounter (statuses as of 01/05/2022) [facility] History of Past illness Narrative* Problem Noted Date Resolved Date Abnormal glucose complicating 07/23/19 16 10/31/2015 Overview: 07/23/15 - needs 3hr GTT - KJ Anemia in 07/23/2015 10/31/2015 Overview: 09/12/15 - repeat hb 10 - KJ 08/23/15 - hb stable at 9.6, cont meds, repeat cbc 2-4 weeks - KJ 08/01/15: Normal iron studies, repeat cbc 4 weeks. MH 07/23/15 - check iron studies, twice daily iron & folic acid, repeat cbc 2-4 weeks - KJ Normal repeat , antepartum 03/01/2015 10/31/2015 Overview: Boy on - [place] Obesity (BMI 30.0-34.9) 09/26/2014 10/31/19 16 Supervision of normal first 01/29/2011 02/08/2012 Routine general medical exam ination at a health care facility 01/13/2008 04/10/2011 documented as of this encounter (statuses as of 01/07/2022) [facility] History of Past illness Narrative* Problem Noted Date Resolved Date Abnormal glucose complicating 07/23/19 16 10/31/2015 Overview: 07/23/15 - needs 3hr GTT - KJ Anemia in 07/23/2015 10/31/2015 Overview: 09/12/15 - repeat hb 10 - KJ 08/23/15 - hb stable at 9.6, cont meds, repeat cbc 2-4 weeks - KJ 08/01/15: Normal iron studies, repeat cbc 4 weeks. 07/23/15 - check iron studies, twice daily iron & folic acid, repeat cbc 2-4 weeks - KJ Normal repeat , antepartum 03/01/2015 10/31/2015 Overview: Boy on [facility] Obesity (BMI 30.0-34.9) 09/26/2014 10/31/19 Supervision of normal first 01/29/2011 02/08/2012 Routine general medical exam ination at a health care facility 01/13/2008 04/10/2011 documented as of this encounter (statuses as of 01/07/2022) [facility] History of Past illness Narrative* Problem Noted Date Resolved Date Abnormal glucose complicating 07/23/19 16 10/31/2015 Overview: 07/23/15 - needs 3hr GTT - KJ Anemia in 07/23/2015 10/31/2015 Overview: 09/12/15 - repeat hb 10 - KJ 08/23/15 - hb stable at 9.6, cont meds, repeat cbc 2-4 weeks - KJ 08/01/15: Normal iron studies, repeat cbc 4 weeks. 07/23/15 - check iron studies, twice daily iron & folic acid, repeat cbc 2-4 weeks - KJ Normal repeat , antepartum 03/01/2015 10/31/2015 Overview: Boy on us- [place] Obesity (BMI 30.0-34.9) 09/26/2014 10/31/19 16 Supervision of normal first 01/29/2011 02/08/2012 Routine general medical exam ination at a health care facility 01/13/2008 04/10/2011 documented as of this encounter (statuses as of 01/08/2022) [facility] History of Past illness Narrative* Problem Noted Date Resolved Date Abnormal glucose complicating 07/23/19 16 10/31/2015 Overview: 07/23/15 - needs 3hr GTT - KJ Anemia in 07/23/2015 10/31/2015 Overview: 09/12/15 - repeat hb 10 - KJ 08/23/15 - hb stable at 9.6, cont meds, repeat cbc 2-4 weeks - KJ 08/01/15: Normal iron studies, repeat cbc 4 weeks. 07/23/15 - check iron studies, twice daily iron & folic acid, repeat cbc 2-4 weeks - KJ Normal repeat , antepartum 03/01/2015 10/31/2015 Overview: Boy on us- [place] Obesity (BMI 30.0-34.9) 09/26/2014 10/31/19 16 Supervision of normal first 01/29/2011 02/08/2012 Routine general medical exam ination at a health care facility 01/13/2008 04/10/2011 documented as of this encounter (statuses as of 01/09/2022) [facility] History of Past illness Narrative* Problem Noted Date Resolved Date Abnormal glucose complicating 07/23/19 16 10/31/2015 Overview: 07/23/15 - needs 3hr GTT - KJ Anemia in 07/23/2015 10/31/2015 Overview: 09/12/15 - repeat hb 10 - KJ 08/23/15 - hb stable at 9.6, cont meds, repeat cbc 2-4 weeks - KJ 08/01/15: Normal iron studies, repeat cbc 4 weeks. 07/23/15 - check iron studies, twice daily iron & folic acid, repeat cbc 2-4 weeks - KJ Normal repeat , antepartum 03/01/2015 10/31/2015 Overview: Boy on us- [place] Obesity (BMI 30.0-34.9) 09/26/2014 10/31/19 16 Supervision of normal first 01/29/2011 02/08/2012 Routine general medical exam ination at a health care facility 01/13/2008 04/10/2011 documented as of this encounter (statuses as of 01/11/2022) [facility] History of Past illness Narrative* Problem Noted Date Resolved Date Abnormal glucose complicating 07/23/19 16 10/31/2015 Overview: 07/23/15 - needs 3hr GTT - KJ Anemia in 07/23/2015 10/31/2015 Overview: 09/12/15 - repeat hb 10 - KJ 08/23/15 - hb stable at 9.6, cont meds, repeat cbc 2-4 weeks - KJ 08/01/15: Normal iron studies, repeat cbc 4 weeks. 07/23/15 - check iron studies, twice daily iron & folic acid, repeat cbc 2-4 weeks - KJ Normal repeat , antepartum 03/01/2015 10/31/2015 Overview: Boy on us- [place] Obesity (BMI 30.0-34.9) 09/26/2014 10/31/19 16 Supervision of normal first 01/29/2011 02/08/2012 Routine general medical exam ination at a health care facility 01/13/2008 04/10/2011 documented as of this encounter (statuses as of 01/20/2022) [facility] History of Past illness Narrative* Problem Noted Date Resolved Date Abnormal glucose complicating 07/23/19 16 10/31/2015 Overview: 07/23/15 - needs 3hr GTT - KJ Anemia in 07/23/2015 10/31/2015 Overview: 09/12/15 - repeat hb 10 - KJ 08/23/15 - hb stable at 9.6, cont meds, repeat cbc 2-4 weeks - KJ 08/01/15: Normal iron studies, repeat cbc 4 weeks. 07/23/15 - check iron studies, twice daily iron & folic acid, repeat cbc 2-4 weeks - KJ Normal repeat , antepartum 03/01/2015 10/31/2015 Overview: Boy on us- [place] Obesity (BMI 30.0-34.9) 09/26/2014 10/31/19 16 Supervision of normal first 01/29/2011 02/08/2012 Routine general medical exam ination at a health care facility 01/13/2008 04/10/2011 documented as of this encounter (statuses as of 01/22/2022) [facility] History of Past illness Narrative* Problem Noted Date Resolved Date Abnormal glucose complicating 07/23/19 16 10/31/2015 Overview: 07/23/15 - needs 3hr GTT - KJ Anemia in 07/23/2015 10/31/2015 Overview: 09/12/15 - repeat hb 10 - KJ 08/23/15 - hb stable at 9.6, cont meds, repeat cbc 2-4 weeks - KJ 08/01/15: Normal iron studies, repeat cbc 4 weeks. 07/23/15 - check iron studies, twice daily iron & folic acid, repeat cbc 2-4 weeks - KJ Normal repeat , antepartum 03/01/2015 10/31/2015 Overview: Boy on us- [place] Obesity (BMI 30.0-34.9) 09/26/2014 10/31/19 16 Supervision of normal first 01/29/2011 02/08/2012 Routine general medical exam ination at a health care facility 01/13/2008 04/10/2011 documented as of this encounter (statuses as of 01/23/2022) [facility] History of Past illness Narrative* Problem Noted Date Resolved Date Abnormal glucose complicating 07/23/19 16 10/31/2015 Overview: 07/23/15 - needs 3hr GTT - KJ Anemia in 07/23/2015 10/31/2015 Overview: 09/12/15 - repeat hb 10 - KJ 08/23/15 - hb stable at 9.6, cont meds, repeat cbc 2-4 weeks - KJ 08/01/15: Normal iron studies, repeat cbc 4 weeks. 07/23/15 - check iron studies, twice daily iron & folic acid, repeat cbc 2-4 weeks - KJ Normal repeat , antepartum 03/01/2015 10/31/2015 Overview: Boy on [facility] Obesity (BMI 30.0-34.9) 09/26/2014 10/31/19 16 Supervision of normal first 01/29/2011 02/08/2012 Routine general medical exam ination at a health care facility 01/13/2008 04/10/2011 documented as of this encounter (statuses as of 01/26/2022) [facility] History of Past illness Narrative* Problem Noted Date Resolved Date Abnormal glucose complicating 07/23/19 16 10/31/2015 Overview: 07/23/15 - needs 3hr GTT - KJ Anemia in 07/23/2015 10/31/2015 Overview: 09/12/15 - repeat hb 10 - KJ 08/23/15 - hb stable at 9.6, cont meds, repeat cbc 2-4 weeks - KJ 08/01/15: Normal iron studies, repeat cbc 4 weeks. 07/23/15 - check iron studies, twice daily iron & folic acid, repeat cbc 2-4 weeks - KJ Normal repeat , antepartum 03/01/2015 10/31/2015 Overview: Boy on - [place] Obesity (BMI 30.0-34.9) 09/26/2014 10/31/19 16 Supervision of normal first 01/29/2011 02/08/2012 Routine general medical exam ination at a health care facility 01/13/2008 04/10/2011 documented as of this encounter (statuses as of 01/26/2022) [facility] History of Past illness Narrative* Problem Noted Date Resolved Date Abnormal glucose complicating 07/23/19 16 10/31/2015 Overview: 07/23/15 - needs 3hr GTT - KJ Anemia in 07/23/2015 10/31/2015 Overview: 09/12/15 - repeat hb 10 - KJ 08/23/15 - hb stable at 9.6, cont meds, repeat cbc 2-4 weeks - KJ 08/01/15: Normal iron studies, repeat cbc 4 weeks. MH 07/23/15 - check iron studies, twice daily iron & folic acid, repeat cbc 2-4 weeks - KJ Normal repeat , antepartum 03/01/2015 10/31/2015 Overview: Boy on - [place] Obesity (BMI 30.0-34.9) 09/26/2014 10/31/19 16 Supervision of normal first 01/29/2011 02/08/2012 Routine general medical exam ination at a health care facility 01/13/2008 04/10/2011 documented as of this encounter (statuses as of 01/28/2022) [facility] History of Past illness Narrative* Problem Noted Date Resolved Date Abnormal glucose complicating 07/23/19 16 10/31/2015 Overview: 07/23/15 - needs 3hr GTT - KJ Anemia in 07/23/2015 10/31/2015 Overview: 09/12/15 - repeat hb 10 - KJ 08/23/15 - hb stable at 9.6, cont meds, repeat cbc 2-4 weeks - KJ 08/01/15: Normal iron studies, repeat cbc 4 weeks. MH 07/23/15 - check iron studies, twice daily iron & folic acid, repeat cbc 2-4 weeks - KJ Normal repeat , antepartum 03/01/2015 10/31/2015 Overview: Boy on [facility]- [place] Obesity (BMI 30.0-34.9) 09/26/2014 10/31/19 16 Supervision of normal first 01/29/2011 02/08/2012 Routine general medical exam ination at a health care facility 01/13/2008 04/10/2011 documented as of this encounter (statuses as of 02/06/2022) [facility] History of Past illness Narrative* Problem Noted Date Resolved Date Abnormal glucose complicating 07/23/19 16 10/31/2015 Overview: 07/23/15 - needs 3hr GTT - KJ Anemia in 07/23/2015 10/31/2015 Overview: 09/12/15 - repeat hb 10 - KJ 08/23/15 - hb stable at 9.6, cont meds, repeat cbc 2-4 weeks - KJ 08/01/15: Normal iron studies, repeat cbc 4 weeks. 07/23/15 - check iron studies, twice daily iron & folic acid, repeat cbc 2-4 weeks - KJ Normal repeat , antepartum 03/01/2015 10/31/2015 Overview: Boy on [facility]- [place] Obesity (BMI 30.0-34.9) 09/26/2014 10/31/19 16 Supervision of normal first 01/29/2011 02/08/2012 Routine general medical exam ination at a health care facility 01/13/2008 04/10/2011 documented as of this encounter (statuses as of 02/09/2022) [facility] History of Past illness Narrative* Problem Noted Date Resolved Date Abnormal glucose complicating 07/23/19 16 10/31/2015 Overview: 07/23/15 - needs 3hr GTT - KJ Anemia in 07/23/2015 10/31/2015 Overview: 09/12/15 - repeat hb 10 - KJ 08/23/15 - hb stable at 9.6, cont meds, repeat cbc 2-4 weeks - KJ 3/24/16: Normal iron studies, repeat cbc 4 weeks. 07/23/15 - check iron studies, twice daily iron & folic acid, repeat cbc 2-4 weeks - KJ Normal repeat , antepartum 03/01/2015 10/31/2015 Overview: Boy on us- [place] Obesity (BMI 30.0-34.9) 09/26/2014 10/31/19 16 Supervision of normal first 01/29/2011 02/08/2012 Routine general medical exam ination at a health care facility 01/13/2008 04/10/2011 documented as of this encounter (statuses as of 02/18/2022) [facility]03-[facility]2016 History of Past illness Narrative* Problem Noted Date Resolved Date Abnormal glucose complicating 07/23/19 16 10/31/2015 Overview: 07/23/15 - needs 3hr GTT - KJ Anemia in 07/23/2015 10/31/2015 Overview: 09/12/15 - repeat hb 10 - KJ 08/23/15 - hb stable at 9.6, cont meds, repeat cbc 2-4 weeks - KJ 08/01/15: Normal iron studies, repeat cbc 4 weeks. 07/23/15 - check iron studies, twice daily iron & folic acid, repeat cbc 2-4 weeks - KJ Normal repeat , antepartum 03/01/2015 10/31/2015 Overview: Boy on [facility] Obesity (BMI 30.0-34.9) 09/26/2014 10/31/19 16 Supervision of normal first 01/29/2011 02/08/2012 Routine general medical exam ination at a health care facility 01/13/2008 04/10/2011 documented as of this encounter (statuses as of 03/24/2022) [facility]2016 History of Past illness Narrative* Problem Noted Date Resolved Date Abnormal glucose complicating 07/23/19 16 10/31/2015 Overview: 07/23/15 - needs 3hr GTT - KJ Anemia in 07/23/2015 10/31/2015 Overview: 09/12/15 - repeat hb 10 - KJ 08/23/15 - hb stable at 9.6, cont meds, repeat cbc 2-4 weeks - KJ 08/01/15: Normal iron studies, repeat cbc 4 weeks. 07/23/15 - check iron studies, twice daily iron & folic acid, repeat cbc 2-4 weeks - KJ Normal repeat , antepartum 03/01/2015 10/31/2015 Overview: Boy on [facility] Obesity (BMI 30.0-34.9) 09/26/2014 10/31/19 16 Supervision of normal first 01/29/2011 02/08/2012 Routine general medical exam ination at a health care facility 01/13/2008 04/10/2011 documented as of this encounter (statuses as of 04/28/2022) [facility]2016 History of Past illness Narrative* Problem Noted Date Resolved Date Abnormal glucose complicating 07/23/19 16 10/31/2015 Overview: 07/23/15 - needs 3hr GTT - KJ Anemia in 07/23/2015 10/31/2015 Overview: 09/12/15 - repeat hb 10 - KJ 08/23/15 - hb stable at 9.6, cont meds, repeat cbc 2-4 weeks - KJ 08/01/15: Normal iron studies, repeat cbc 4 weeks. 07/23/15 - check iron studies, twice daily iron & folic acid, repeat cbc 2-4 weeks - KJ Normal repeat , antepartum 03/01/2015 10/31/2015 Overview: Boy on [facility]- [facility] Obesity (BMI 30.0-34.9) 09/26/2014 10/31/19 16 Supervision of normal first 01/29/2011 02/08/2012 Routine general medical exam ination at a health care facility 01/13/2008 04/10/2011 documented as of this encounter (statuses as of 06/17/2022) [facility]2016 History of Past illness Narrative* Problem Noted Date Resolved Date Abnormal glucose complicating 07/23/19 16 10/31/2015 Overview: 07/23/15 - needs 3hr GTT - KJ Anemia in 07/23/2015 10/31/2015 Overview: 09/12/15 - repeat hb 10 - KJ 08/23/15 - hb stable at 9.6, cont meds, repeat cbc 2-4 weeks - KJ 08/01/15: Normal iron studies, repeat cbc 4 weeks. 07/23/15 - check iron studies, twice daily iron & folic acid, repeat cbc 2-4 weeks - KJ Normal repeat , antepartum 03/01/2015 10/31/2015 Overview: Boy on [facility]- [facility] Obesity (BMI 30.0-34.9) 09/26/2014 10/31/19 16 Supervision of normal first 01/29/2011 02/08/2012 Routine general medical exam ination at a health care facility 01/13/2008 04/10/2011 documented as of this encounter (statuses as of 07/15/2022) [facility]2016 History of Past illness Narrative* Problem Noted Date Resolved Date Abnormal glucose complicating 07/23/19 16 10/31/2015 Overview: 07/23/15 - needs 3hr GTT - KJ Anemia in 07/23/2015 10/31/2015 Overview: 09/12/15 - repeat hb 10 - KJ 08/23/15 - hb stable at 9.6, cont meds, repeat cbc 2-4 weeks - KJ 08/01/15: Normal iron studies, repeat cbc 4 weeks. 07/23/15 - check iron studies, twice daily iron & folic acid, repeat cbc 2-4 weeks - KJ Normal repeat , antepartum 03/01/2015 10/31/2015 Overview: Boy on [facility]- [facility] Obesity (BMI 30.0-34.9) 09/26/2014 10/31/19 16 Supervision of normal first 01/29/2011 02/08/2012 Routine general medical exam ination at a health care facility 01/13/2008 04/10/2011 documented as of this encounter (statuses as of 09/23/2022) [facility]2016 History of Past illness Narrative* Problem Noted Date Resolved Date Abnormal glucose complicating 07/23/19 16 10/31/2015 Overview: 07/23/15 - needs 3hr GTT - KJ Anemia in 07/23/2015 10/31/2015 Overview: 09/12/15 - repeat hb 10 - KJ 08/23/15 - hb stable at 9.6, cont meds, repeat cbc 2-4 weeks - KJ 08/01/15: Normal iron studies, repeat cbc 4 weeks. 07/23/15 - check iron studies, twice daily iron & folic acid, repeat cbc 2-4 weeks - KJ Normal repeat , antepartum 03/01/2015 10/31/2015 Overview: Boy on [facility] Obesity (BMI 30.0-34.9) 09/26/2014 10/31/19 16 Supervision of normal first 01/29/2011 02/08/2012 Routine general medical exam ination at a health care facility 01/13/2008 04/10/2011 documented as of this encounter (statuses as of 10/26/2022) [facility]2016 History of Past illness Narrative* Problem Noted Date Resolved Date Abnormal glucose complicating 07/23/19 16 10/31/2015 Overview: 07/23/15 - needs 3hr GTT - KJ Anemia in 07/23/2015 10/31/2015 Overview: 09/12/15 - repeat hb 10 - KJ 08/23/15 - hb stable at 9.6, cont meds, repeat cbc 2-4 weeks - KJ 08/01/15: Normal iron studies, repeat cbc 4 weeks. 07/23/15 - check iron studies, twice daily iron & folic acid, repeat cbc 2-4 weeks - KJ Normal repeat , antepartum 03/01/2015 10/31/2015 Overview: Boy on - [facility] Obesity (BMI 30.0-34.9) 09/26/2014 10/31/19 16 Supervision of normal first 01/29/2011 02/08/2012 Routine general medical exam ination at a health care facility 01/13/2008 04/10/2011 documented as of this encounter (statuses as of 10/29/2022) [facility]2016 History of Past illness Narrative* Problem Noted Date Resolved Date Abnormal glucose complicating 07/23/19 16 10/31/2015 Overview: 07/23/15 - needs 3hr GTT - KJ Anemia in 07/23/2015 10/31/2015 Overview: 09/12/15 - repeat hb 10 - KJ 08/23/15 - hb stable at 9.6, cont meds, repeat cbc 2-4 weeks - KJ 08/01/15: Normal iron studies, repeat cbc 4 weeks. 07/23/15 - check iron studies, twice daily iron & folic acid, repeat cbc 2-4 weeks - KJ Normal repeat , antepartum 03/01/2015 10/31/2015 Overview: Boy on [facility]- [place] Obesity (BMI 30.0-34.9) 09/26/2014 10/31/19 16 Supervision of normal first 01/29/2011 02/08/2012 Routine general medical exam ination at a health care facility 01/13/2008 04/10/2011 documented as of this encounter (statuses as of 11/02/2022) [facility]2016 History of Past illness Narrative* Problem Noted Date Resolved Date Abnormal glucose complicating 07/23/19 16 10/31/2015 Overview: 07/23/15 - needs 3hr GTT - KJ Anemia in 07/23/2015 10/31/2015 Overview: 09/12/15 - repeat hb 10 - KJ 08/23/15 - hb stable at 9.6, cont meds, repeat cbc 2-4 weeks - KJ 08/01/15: Normal iron studies, repeat cbc 4 weeks. 07/23/15 - check iron studies, twice daily iron & folic acid, repeat cbc 2-4 weeks - KJ Normal repeat , antepartum 03/01/2015 10/31/2015 Overview: Boy on [facility]- [facility] Obesity (BMI 30.0-34.9) 09/26/2014 10/31/19 16 Supervision of normal first 01/29/2011 02/08/2012 Routine general medical exam ination at a health care facility 01/13/2008 04/10/2011 documented as of this encounter (statuses as of 11/03/2022) [facility] History of Past illness Narrative* Problem Noted Date Diagnosed Date Resolved Date Abnormal glucose complicating 07/23/2015 10/31/2015 Overview: 07/23/15 - needs 3hr GTT - KJ Anemia in 07/23/2015 10/31/19 16 Overview: 09/12/15 - repeat hb 10 - KJ 08/23/15 - hb stable at 9.6, cont meds, repeat cbc 2-4 weeks - KJ 08/01/15: Normal iron studies, repeat cbc 4 weeks. 07/23/15 - check iron studies, twice daily iron & folic acid, repeat cbc 2-4 weeks - KJ Normal repeat , antepartum 03/01/2015 10/31/2015 Overview: Boy on [facility]- [place] Obesity (BMI 30.0-34.9) 09/26/201410/09 Supervision of normal first 01/29/2011 02/08/2012 Routine general medical exam ination at a health care facility 01/13/2008 04/10/2011 documented as of this encounter (statuses as of 12/24/2022) [facility]2016 History of Past illness Narrative* Problem Noted Date Diagnosed Date Resolved Date Abnormal glucose complicating 07/23/2015 10/31/2015 Overview: 07/23/15 - needs 3hr GTT - KJ Anemia in 07/23/2015 10/31/19 Overview: 09/12/15 - repeat hb 10 - KJ 08/23/15 - hb stable at 9.6, cont meds, repeat cbc 2-4 weeks - KJ 08/01/15: Normal iron studies, repeat cbc 4 weeks. 07/23/15 - check iron studies, twice daily iron & folic acid, repeat cbc 2-4 weeks - KJ Normal repeat , antepartum 03/01/2015 10/31/2015 Overview: Boy on [facility]- [place] Obesity (BMI 30.0-34.9) 09/26/201410/09 Supervision of normal first 01/29/2011 02/08/2012 Routine general medical exam ination at a health care facility 01/13/2008 04/10/2011 documented as of this encounter (statuses as of 12/29/2022) [facility]2016 History of Past illness Narrative* Problem Noted Date Diagnosed Date Resolved Date Abnormal glucose complicating 07/23/2015 10/31/2015 Overview: 07/23/15 - needs 3hr GTT - KJ Anemia in 07/23/2015 10/31/19 Overview: 09/12/15 - repeat hb 10 - KJ 08/23/15 - hb stable at 9.6, cont meds, repeat cbc 2-4 weeks - KJ 08/01/15: Normal iron studies, repeat cbc 4 weeks. 07/23/15 - check iron studies, twice daily iron & folic acid, repeat cbc 2-4 weeks - KJ Normal repeat , antepartum 03/01/2015 10/31/2015 Overview: Boy on [facility]- [place] Obesity (BMI 30.0-34.9) 09/26/201410/09 Supervision of normal first 01/29/2011 02/08/2012 Routine general medical exam ination at a health care facility 01/13/2008 04/10/2011 documented as of this encounter (statuses as of 01/01/2023) [facility]2016 History of Past illness Narrative* Problem Noted Date Diagnosed Date Resolved Date Abnormal glucose complicating 07/23/2015 10/31/2015 Overview: 07/23/15 - needs 3hr GTT - KJ Anemia in 07/23/2015 10/31/19 Overview: 09/12/15 - repeat hb 10 - KJ 08/23/15 - hb stable at 9.6, cont meds, repeat cbc 2-4 weeks - KJ 08/01/15: Normal iron studies, repeat cbc 4 weeks. 07/23/15 - check iron studies, twice daily iron & folic acid, repeat cbc 2-4 weeks - KJ Normal repeat , antepartum 03/01/2015 10/31/2015 Overview: Boy on [facility]- [place] Obesity (BMI 30.0-34.9) 09/26/201410/09 Supervision of normal first 01/29/2011 02/08/2012 Routine general medical exam ination at a health care facility 01/13/2008 04/10/2011 documented as of this encounter (statuses as of 03/17/2023) [facility] Diagnosis Generalized abdominal pain Abdominal pain, generalized [facility] Inflammatory bowel disease Other and unspecified noninfectious gastroenteritis and colitis [facility] Diagnosis Right lower quadrant abdominal pain- Primary Abdominal pain, right lower quadrant [facility] Diagnosis Crohn's disease of small intestine with other complication (HCC)- Primary [facility] Diagnosis Crohn's disease of small intestine without complication (HCC)- Primary Regional enteritis of small intestine Umbilical hernia without obstruction or gangrene Umbilical hernia without mention of obstruction or gangrene [facility] Diagnosis Pharyngitis, unspecified etiology- Primary URI, acute Acute upper respiratory infections of unspecified site [facility] Diagnosis Encounter for Depo-Provera contraception- Primary Surveillance of other previously prescribed contraceptive method Encounter for management and injection of depo-Provera Surveillance of other previously prescribed contraceptive method [facility] Diagnosis Sterilization consult- Primary Other general counseling and advice for contraceptive management [facility] Diagnosis Sore throat- Primary Acute pharyngitis Exposure to COVID-19 virus [facility] Diagnosis Crohn's disease of ileum with other complication (HCC)- Primary Encounter for screening for viral disease [facility] Diagnosis Crohn's disease of ileum with other complication (HCC)- Primary [facility] Diagnosis Generalized abdominal pain- Primary Abdominal pain, generalized Periumbilical hernia Umbilical hernia without mention of obstruction or gangrene [facility] Diagnosis Periumbilical hernia- Primary Umbilical hernia without mention of obstruction or gangrene [facility] Diagnosis Sterilization consult- Primary Other general counseling and advice for contraceptive management Umbilical hernia without obstruction or gangrene Umbilical hernia without mention of obstruction or gangrene Post-op pain Other acute postoperative pain [facility] Diagnosis Periumbilical hernia Umbilical hernia without mention of obstruction or gangrene [facility] Diagnosis Crohn's disease of ileum with other complication (HCC)- Primary [facility] Diagnosis Crohn's disease of ileum with other complication (HCC)- Primary [facility] Diagnosis Post-operative state- Primary Other postprocedural status Need for influenza vaccination Need for prophylactic vaccination and inoculation against influenza [facility] Diagnosis Crohn's disease of ileum with other complication (HCC)- Primary [facility] Diagnosis Crohn's disease of ileum with other complication (HCC)- Primary [facility] Diagnosis Crohn's disease without complication, unspecified gastrointestinal tract location (HCC)- Primary [facility] Diagnosis Crohn's disease of ileum with other complication (HCC)- Primary Encounter for screening for viral disease [facility] Diagnosis Crohn's disease of ileum with other complication (HCC)- Primary [facility] Diagnosis Wellness examination- Primary Encounter for immunization Need for other specified prophylactic vaccination against single bacterial disease Vitamin D deficiency Unspecified vitamin D deficiency Crohn's disease without complication, unspecified gastrointestinal tract location (HCC) Iron deficiency anemia, unspecified iron deficiency anemia type Screening for lipid disorders [facility] Diagnosis Crohn's disease of ileum with other complication (HCC)- Primary documented in this encounter [facility] Summary Purpose Family History No Family History Records FoundNo Family History Records FoundNo Family History Records FoundNo Family History Records FoundNo Family History Records Found Advance Directives No Advanced Directives Records FoundDocuments on File Type Date 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 Advance Directive(s) 07/23/2021 12:43 PM Advance Directive(s) 01/07/2016 3:23 PM Documents on File Type Date 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 Advance Directive(s) 07/23/2021 12:43 PM Advance Directive(s) 01/07/2016 3:23 PM Reason for Referral Specialty Diagnoses / Procedures Referred By Contac t Referred To Contact CT IMAGING Diagnoses Inflammatory bowel disease Procedures CT ENTEROGRAPHY W IVCON CT ABD & PELVIS W/CONTRAST Kath Sosa MD [address] [place] [address] Ct Imaging Referral ID Status Reason Start Date Expiration Date V isits Requested Visits Authorized [id number] Closed Auto-Generate d Referral 07/23/2021 09/14/2021 1 1 Specialty Diagnoses / Procedures Referred By Contac t Referred To Contact General Surgery Diagnoses Crohn's disease of small intestine with other complication (HCC) Procedures CONSULT TO GENERAL SURGERY OFFICE/OUTPATIENT [facility] 60-74 MINUTES Vane Malave, LOCOMOTIVE REPAIRER DIESEL.EMBROIDERY ASSISTANT [address] [place] [address] Referral ID Status Reason Start Date Expiration Date Visits Requested Visits Authorized [id number] Authorized PCP Requested Referral 08/21/2021 08/21/2022 1 1 Specialty Diagnoses / Procedures Referred By Contac t Referred To Contact Diagnoses Generalized abdominal pain Daisy Nichole, LOCOMOTIVE REPAIRER DIESEL.EMBROIDERY ASSISTANT [address] [place] [address] Referral ID Status Reason Start Date Expiration Date Visits Re quested Visits Authorized [id number] Closed 1 1 Specialty Diagnoses / Procedures Referred By Contac t Referred To Contact General Surgery Diagnoses Periumbilical hernia Procedures CONSULT TO GENERAL SURGERY OFFICE/OUTPATIENT [facility] 60-74 MINUTES Daisy Nichole APRN.EMBROIDERY ASSISTANT [address] [place] [address] Referral ID Status Reason Start Date Expiration Date Visits Requested Visits Authorized [id number] Authorized PCP Requested Referral 01/05/2022 01/05/2023 1 1 Specialty Diagnoses / Procedures Referred By Contac t Referred To Contact Diagnoses Post-op pain Annia Christiansen MD [address] [place] [address] Referral ID Status Reason Start Date Expiration Date Visits Re quested Visits Authorized [id number] Closed 1 1 Specialty Diagnoses / Procedures Referred By Contac t Referred To Contact Gastroenterology Diagnoses Crohn's disease without complication, unspecified gastrointestinal tract location (HCC) Procedures CONSULT TO GASTROENTEROLOGY OFFICE/OUTPATIENT [facility] 60-74 MINUTES Radha Craig PA-C [address] [place] [address] Referral ID Status Reason Start Date Expiration Date Visits Requested Visits Authorized [id number] Pending Review PCP Requested Referral 09/23/2022 09/23/2023 1 1 Specialty Diagnoses / Procedures Referred By Contac t Referred To Contact Diagnoses Crohn's disease of ileum with other complication (HCC) Tia Osei PA-C [address] [place] [address] Referral ID Status Reason Start Date Expiration Date Visits Re quested Visits Authorized [id number] Closed 1 1 Health Concerns Infection Onset Date Last Indicated Resolved Time COVID-19 Rule-Out 10/02/2021 10/02/2021 Infection Onset Date Last Indicated Resolved Time COVID-19 Rule-Out 11/24/2021 11/24/2021 Infection Onset Date Last Indicated Resolved Time COVID-19 Confirmed 11/24/2021 11/24/2021 Medications Administered Section Active Administered Medications - up to 3 most recent administrations Medication Order MAR Action Action Date Dose Rate Site medroxyPROGESTERone 150 mg injection (DEPO-PROVERA) 150 mg, INTRAMUSCULAR, EVERY 12 WEEKS, 4 doses, First dose on Wed02/07/21 at 1600, Last dose on Wed10/17/21 at 1600, Hazardous Potential Reproductive Risk Drug: Use appropriate PPE. Given 11/05/2021 3:30 PM EDT 150 mg Buttocks, Left Inactive Administered Medications - up to 3 most recent administrations Medication Order MAR Action Action Date Dose Rate Site acetaminophen 650 mg tab(s) (TYLENOL) 650 mg, ORAL, ONCE, 1 dose, On Wed01/26/22 at 1200, If ordered PRN for pain, patient/guardian may elect to receive this medication for higher pain levels INSTEAD of the opioid, if preferred: N/A Given 01/26/2022 12:03 PM EDT 650 mg diphenhydrAMINE 25 mg (BENADRYL) 25 mg, ORAL, ONCE, 1 dose, On Wed01/26/22 at 1200 Given 01/26/2022 12:03 PM EDT 25 mg inFLIXimab 500 mg in NaCl 0.9% 250 mL (REMICADE) 500 mg, INTRAVENOUS, at 83.33-250 mL/hr, Administer over 1-3 Hours, ONCE, 1 dose, On Wed01/26/22 at 1200, Total volume: 250ml. Administer with 0.2 micron filter. New Bag/Syringe/Bottle 01/26/2022 12:11 PM EDT 500 mg 83.33 mL/hr Inactive Administered Medications - up to 3 most recent administrations Medication Order [facility] Action Action Date Dose Rate Site acetaminophen 650 mg tab(s) (TYLENOL) 650 mg, ORAL, ONCE, 1 dose, On Wed02/09/22 at 1030, If ordered PRN for pain, patient/guardian may elect to receive this medication for higher pain levels INSTEAD of the opioid, if preferred: N/A Given 02/09/2022 10:33 AM EDT 650 mg diphenhydrAMINE 25 mg (BENADRYL) 25 mg, ORAL, ONCE, 1 dose, On Wed02/09/22 at 1030 Given 02/09/2022 10:33 AM EDT 25 mg inFLIXimab 500 mg in NaCl 0.9% 250 mL (REMICADE) 500 mg, INTRAVENOUS, at 83.33-250 mL/hr, Administer over 1-3 Hours, ONCE, 1 dose, On Wed02/09/22 at 1030, Total volume: 250ml. EXP: Administer with 0.2 micron filter. New Bag/Syringe/Bottle 02/09/2022 10:58 AM EDT 500 mg 83.33 mL/hr Inactive Administered Medications - up to 3 most recent administrations Medication Order MAR Action Action Date Dose Rate Site acetaminophen 650 mg tab(s) (TYLENOL) 650 mg, ORAL, ONCE, 1 dose, On Wed07/15/22 at 0830, If ordered PRN for pain, patient/guardian may elect to receive this medication for higher pain levels INSTEAD of the opioid, if preferred: N/A Given 07/15/2022 8:42 AM EST 650 mg diphenhydrAMINE 25 mg (BENADRYL) 25 mg, ORAL, ONCE, 1 dose, On Wed07/15/22 at 0830 Given 07/15/2022 8:42 AM EST 25 mg inFLIXimab 500 mg in NaCl 0.9% 250 mL (REMICADE) 500 mg, INTRAVENOUS, at 83.33-250 mL/hr, Administer over 1-3 Hours, ONCE, 1 dose, On Wed07/15/22 at 0830, Total volume: 250ml. EXP: Administer with 0.2 micron filter. New Bag/Syringe/Bottle 07/15/2022 9:04 AM EST 500 mg 125 mL/hr Inactive Administered Medications - up to 3 most recent administrations Medication Order MAR Action Action Date Dose Rate Site acetaminophen 650 mg tab(s) (TYLENOL) 650 mg, ORAL, ONCE, 1 dose, On Wed11/02/22 at 1330, If ordered PRN for pain, patient/guardian may elect to receive this medication for higher pain levels INSTEAD of the opioid, if preferred: N/A Given 11/02/2022 1:30 PM EDT 650 mg diphenhydrAMINE 25 mg (BENADRYL) 25 mg, ORAL, ONCE, 1 dose, On Wed11/02/22 at 1330 Given 11/02/2022 1:21 PM EDT 25 mg inFLIXimab-axxq 500 mg in NaCl 0.9% 250 mL (AVSOLA) 500 mg, INTRAVENOUS, at 83.33-250 mL/hr, Administer over 1-3 Hours, ONCE, 1 dose, On Wed11/02/22 at 1330, Total Volume: = 250 mL exp 1330 11/03/22 (room temp) Administer with 0.2 micron filter., Medication Substitution: [facility] preferred product has been replaced with the insurance mandated product New Bag/Syringe/Bottle 11/02/2022 1:39 PM EDT 500 mg 250 mL/hr Inactive Administered Medications - up to 3 most recent administrations Medication Order MAR Action Action Date Dose Rate Site acetaminophen 650 mg tab(s) (TYLENOL) 650 mg, ORAL, ONCE, 1 dose, On Wed12/28/22 at 1330, If ordered PRN for pain, patient/guardian may elect to receive this medication for higher pain levels INSTEAD of the opioid, if preferred: N/A Given 12/28/2022 1:17 PM EDT 650 mg diphenhydrAMINE 25 mg (BENADRYL) 25 mg, ORAL, ONCE, 1 dose, On Wed12/28/22 at 1330 Given 12/28/2022 1:17 PM EDT 25 mg inFLIXimab-axxq 400 mg in NaCl 0.9% 250 mL (AVSOLA) 400 mg (rounded from 433.5 mg = 5 mg/kg/dose 86.7 kg), INTRAVENOUS, at 83.33-250 mL/hr, Administer over 1-3 Hours, ONCE, 1 dose, On Wed12/28/22 at 1330, Total Volume: = 250 mL exp 1400 12/29/22 (room temp) Administer with 0.2 micron filter., Medication Substitution: [facility] preferred product has been replaced with the insurance mandated product New Bag/Syringe/Bottle 12/28/2022 1:43 PM EDT 400 mg 250 mL/hr Additional Source Comments INFORMATION SOURCE (unrecogn ized section and content) DATE CREATED AUTHOR AUTHOR'S ORGANIZ ATION 09/22/2019 [facility] DATE CREATED AUTHOR AUTHOR'S ORGANIZ ATION 08/18/2021 [facility] DATE CREATED AUTHOR AUTHOR'S ORGANIZ ATION 09/19/2021 [facility] DATE CREATED AUTHOR AUTHOR'S ORGANIZ ATION 05/25/2023 [facility] Source Comments (unrecognize d section and content) In the event this informatio n is protected by the Federal Confidentiality of Alcohol and Drug Abuse Patient Records regulations: The Federal rules restrict any use of the information to criminally investigate or prosecute any alcohol or drug abuse patient.[facility]ighIn the event this information is protected by the Federal Confidentiality of Alcohol and Drug Abuse Patient Records regulations: The Federal rules restrict any use of the information to criminally investigate or prosecute any alcohol or drug abuse patient.[facility]ighIn the event this information is protected by the Federal Confidentiality of Alcohol and Drug Abuse Patient Records regulations: The Federal rules restrict any use of the information to criminally investigate or prosecute any alcohol or drug abuse patient.[facility]ighIn the event this information is protected by the Federal Confidentiality of Alcohol and Drug Abuse Patient Records regulations: The Federal rules restrict any use of the information to criminally investigate or prosecute any alcohol or drug abuse patient.[facility]ighIn the event this information is protected by the Federal Confidentiality of Alcohol and Drug Abuse Patient Records regulations: The Federal rules restrict any use of the information to criminally investigate or prosecute any alcohol or drug abuse patient.[facility]ighIn the event this information is protected by the Federal Confidentiality of Alcohol and Drug Abuse Patient Records regulations: The Federal rules restrict any use of the information to criminally investigate or prosecute any alcohol or drug abuse patient.[facility]ighIn the event this information is protected by the Federal Confidentiality of Alcohol and Drug Abuse Patient Records regulations: The Federal rules restrict any use of the information to criminally investigate or prosecute any alcohol or drug abuse patient.[facility]ighIn the event this information is protected by the Federal Confidentiality of Alcohol and Drug Abuse Patient Records regulations: The Federal rules restrict any use of the information to criminally investigate or prosecute any alcohol or drug abuse patient.[facility]ighIn the event this information is protected by the Federal Confidentiality of Alcohol and Drug Abuse Patient Records regulations: The Federal rules restrict any use of the information to criminally investigate or prosecute any alcohol or drug abuse patient.[facility]ighIn the event this information is protected by the Federal Confidentiality of Alcohol and Drug Abuse Patient Records regulations: The Federal rules restrict any use of the information to criminally investigate or prosecute any alcohol or drug abuse patient.[facility]ighIn the event this information is protected by the Federal Confidentiality of Alcohol and Drug Abuse Patient Records regulations: The Federal rules restrict any use of the information to criminally investigate or prosecute any alcohol or drug abuse patient.[facility]ighIn the event this information is protected by the Federal Confidentiality of Alcohol and Drug Abuse Patient Records regulations: The Federal rules restrict any use of the information to criminally investigate or prosecute any alcohol or drug abuse patient.[facility]ighIn the event this information is protected by the Federal Confidentiality of Alcohol and Drug Abuse Patient Records regulations: The Federal rules restrict any use of the information to criminally investigate or prosecute any alcohol or drug abuse patient.[facility]ighIn the event this information is protected by the Federal Confidentiality of Alcohol and Drug Abuse Patient Records regulations: The Federal rules restrict any use of the information to criminally investigate or prosecute any alcohol or drug abuse patient.[facility]ighIn the event this information is protected by the Federal Confidentiality of Alcohol and Drug Abuse Patient Records regulations: The Federal rules restrict any use of the information to criminally investigate or prosecute any alcohol or drug abuse patient.[facility]ighIn the event this information is protected by the Federal Confidentiality of Alcohol and Drug Abuse Patient Records regulations: The Federal rules restrict any use of the information to criminally investigate or prosecute any alcohol or drug abuse patient.[facility]ighIn the event this information is protected by the Federal Confidentiality of Alcohol and Drug Abuse Patient Records regulations: The Federal rules restrict any use of the information to criminally investigate or prosecute any alcohol or drug abuse patient.[facility]ighIn the event this information is protected by the Federal Confidentiality of Alcohol and Drug Abuse Patient Records regulations: The Federal rules restrict any use of the information to criminally investigate or prosecute any alcohol or drug abuse patient.[facility]ighIn the event this information is protected by the Federal Confidentiality of Alcohol and Drug Abuse Patient Records regulations: The Federal rules restrict any use of the information to criminally investigate or prosecute any alcohol or drug abuse patient.[facility]ighIn the event this information is protected by the Federal Confidentiality of Alcohol and Drug Abuse Patient Records regulations: The Federal rules restrict any use of the information to criminally investigate or prosecute any alcohol or drug abuse patient.[facility]ighIn the event this information is protected by the Federal Confidentiality of Alcohol and Drug Abuse Patient Records regulations: The Federal rules restrict any use of the information to criminally investigate or prosecute any alcohol or drug abuse patient.[facility]ighIn the event this information is protected by the Federal Confidentiality of Alcohol and Drug Abuse Patient Records regulations: The Federal rules restrict any use of the information to criminally investigate or prosecute any alcohol or drug abuse patient.[facility]ighIn the event this information is protected by the Federal Confidentiality of Alcohol and Drug Abuse Patient Records regulations: The Federal rules restrict any use of the information to criminally investigate or prosecute any alcohol or drug abuse patient.[facility]ighIn the event this information is protected by the Federal Confidentiality of Alcohol and Drug Abuse Patient Records regulations: The Federal rules restrict any use of the information to criminally investigate or prosecute any alcohol or drug abuse patient.[facility]ighIn the event this information is protected by the Federal Confidentiality of Alcohol and Drug Abuse Patient Records regulations: The Federal rules restrict any use of the information to criminally investigate or prosecute any alcohol or drug abuse patient.[facility]ighIn the event this information is protected by the Federal Confidentiality of Alcohol and Drug Abuse Patient Records regulations: The Federal rules restrict any use of the information to criminally investigate or prosecute any alcohol or drug abuse patient.[facility]ighIn the event this information is protected by the Federal Confidentiality of Alcohol and Drug Abuse Patient Records regulations: The Federal rules restrict any use of the information to criminally investigate or prosecute any alcohol or drug abuse patient.[facility]ighIn the event this information is protected by the Federal Confidentiality of Alcohol and Drug Abuse Patient Records regulations: The Federal rules restrict any use of the information to criminally investigate or prosecute any alcohol or drug abuse patient.[facility]ighIn the event this information is protected by the Federal Confidentiality of Alcohol and Drug Abuse Patient Records regulations: The Federal rules restrict any use of the information to criminally investigate or prosecute any alcohol or drug abuse patient.[facility]ighIn the event this information is protected by the Federal Confidentiality of Alcohol and Drug Abuse Patient Records regulations: The Federal rules restrict any use of the information to criminally investigate or prosecute any alcohol or drug abuse patient.[facility]ighIn the event this information is protected by the Federal Confidentiality of Alcohol and Drug Abuse Patient Records regulations: The Federal rules restrict any use of the information to criminally investigate or prosecute any alcohol or drug abuse patient.[facility]ighIn the event this information is protected by the Federal Confidentiality of Alcohol and Drug Abuse Patient Records regulations: The Federal rules restrict any use of the information to criminally investigate or prosecute any alcohol or drug abuse patient.[facility]ighIn the event this information is protected by the Federal Confidentiality of Alcohol and Drug Abuse Patient Records regulations: The Federal rules restrict any use of the information to criminally investigate or prosecute any alcohol or drug abuse patient.[facility]ighIn the event this information is protected by the Federal Confidentiality of Alcohol and Drug Abuse Patient Records regulations: The Federal rules restrict any use of the information to criminally investigate or prosecute any alcohol or drug abuse patient.[facility]ighIn the event this information is protected by the Federal Confidentiality of Alcohol and Drug Abuse Patient Records regulations: The Federal rules restrict any use of the information to criminally investigate or prosecute any alcohol or drug abuse patient.[facility]ighIn the event this information is protected by the Federal Confidentiality of Alcohol and Drug Abuse Patient Records regulations: The Federal rules restrict any use of the information to criminally investigate or prosecute any alcohol or drug abuse patient.[facility]ighIn the event this information is protected by the Federal Confidentiality of Alcohol and Drug Abuse Patient Records regulations: The Federal rules restrict any use of the information to criminally investigate or prosecute any alcohol or drug abuse patient.[facility]ighIn the event this information is protected by the Federal Confidentiality of Alcohol and Drug Abuse Patient Records regulations: The Federal rules restrict any use of the information to criminally investigate or prosecute any alcohol or drug abuse patient.[facility]ighIn the event this information is protected by the Federal Confidentiality of Alcohol and Drug Abuse Patient Records regulations: The Federal rules restrict any use of the information to criminally investigate or prosecute any alcohol or drug abuse patient.[facility]ighIn the event this information is protected by the Federal Confidentiality of Alcohol and Drug Abuse Patient Records regulations: The Federal rules restrict any use of the information to criminally investigate or prosecute any alcohol or drug abuse patient.[facility]ighIn the event this information is protected by the Federal Confidentiality of Alcohol and Drug Abuse Patient Records regulations: The Federal rules restrict any use of the information to criminally investigate or prosecute any alcohol or drug abuse patient.[facility]ighIn the event this information is protected by the Federal Confidentiality of Alcohol and Drug Abuse Patient Records regulations: The Federal rules restrict any use of the information to criminally investigate or prosecute any alcohol or drug abuse patient.[facility]ighIn the event this information is protected by the Federal Confidentiality of Alcohol and Drug Abuse Patient Records regulations: The Federal rules restrict any use of the information to criminally investigate or prosecute any alcohol or drug abuse patient.[facility] Reason for Visit (unrecogniz ed section and content) Reason Comments FMLA Paperwork Return To Work Letter Specialty Diagnoses / Procedures Referred By Contac t Referred To Contact CT IMAGING Diagnoses Inflammatory bowel disease Procedures CT ENTEROGRAPHY W IVCON CT ABD & PELVIS W/CONTRAST Kath Sosa MD [address] [facility] [place] [address] Ct Imaging Referral ID Status Reason Start Date Expiration Date V isits Requested Visits Authorized [id number] Closed Auto-Generate d Referral 07/23/2021 09/14/2021 1 1 Reason Comments Pain right side, x 1 day Reason Comments Results Reason Comments New Patient Crohns disease Reason Comments Sore Throat ST x 3 days Reason Onset Date Comments Depo Provera Injection 11/05/2021 Reason Comments Discussion Reason Comments Nasal Congestion drainage, cough, bod yaches, fever and sore throat x last night Reason Comments Procedure Follow Up Colon- IBD, Diarrhea Reason Comments Orders Reason Comments Insurance Authorization Mesalamine ER Reason Comments Follow Up Abdominal pain, need s note to return to work Reason Comments Patient Update Reason Comments Pre-Op Exam Reason Comments Patient Update Reason Comments Consult Periumbilical hernia Specialty Diagnoses / Procedures Referred By Contac t Referred To Contact General Surgery Diagnoses Periumbilical hernia Procedures CONSULT TO GENERAL SURGERY OFFICE/OUTPATIENT NEW HIGH MDM 60-74 MINUTES Daisy Nichole APRN.EMBROIDERY ASSISTANT [address] [place] [address] Referral ID Status Reason Start Date Expiration Date V isits Requested Visits Authorized [id number] Closed PCP Requested Referral 01/05/2022 01/05/2023 1 1 Reason Comments Future Appointment Reason Comments Benefits Investigation Reason Comments Appointment Reason Comments Non-Chemotherapy Treatment Specialty Diagnoses / Procedures Referred By Contac t Referred To Contact Diagnoses Crohn's disease of ileum with other complication (HCC) Procedures INFLIXIMAB INJECTION Tia Osei PA-C [address] [place] [address] [facility] [address] [place] [address] Referral ID Status Reason Start Date Expiration Date V isits Requested Visits Authorized [id number] Pending Review 12/09/2021 06/06/2022 4 4 Referral ID Status Reason Start Date Expiration Date V isits Requested Visits Authorized [id number] Authorized 12/09/2021 06/06/2022 4 4 Reason Onset Date Comments Post-Op Visit 02/17/2022 Immunizations 02/17/2022 Flu vaccination Reason Comments Patient Question Referral ID Status Reason Start Date Expiration Date V isits Requested Visits Authorized [id number] Authorized 12/09/2021 10/24/2022 8 8 Reason Comments requetsing referral Reason Comments Crohns Reason Comments Insurance Authorization Reason Comments Chemotherapy Treatment Specialty Diagnoses / Procedures Referred By Contac t Referred To Contact Diagnoses Crohn's disease of ileum with other complication (HCC) Procedures INJ. AVSOLA, 10 MG Kaylie Parham PA-C [address] [place] [address] [facility] [address] [place] [address] Referral ID Status Reason Start Date Expiration Date V isits Requested Visits Authorized [id number] Authorized 10/27/2022 10/27/2023 7 7 Reason Comments Physical Reason Comments Remicade Infusion Care Teams (unrecognized sec tion and content) Fishing Lure Assembler Relationship Specialty Start Date End Date Drake Henderson DO [address] [place] [address] PCP - General Family Practice 11/13/14 Fishing Lure Assembler Relationship Specialty Start Date End Date Drake Henderson DO [address] [facility] [place] [address] PCP - General Family Practice 11/13/14 Fishing Lure Assembler Relationship Specialty Start Date End Date Drake Henderson, DO [address] [facility] [place] [address] PCP - General Family Practice 11/13/14 Fishing Lure Assembler Relationship Specialty Start Date End Date Drake Henderson, DO [address] [facility] [place] [address] PCP - General Family Practice 11/13/14 Fishing Lure Assembler Relationship Specialty Start Date End Date Drake Henderson, DO [address] [facility] [place] [address] PCP - General Family Practice 11/13/14 Kath Sosa MD [address] [place] [address] Gastroenterology 09/17/21 Fishing Lure Assembler Relationship Specialty Start Date End Date Drake Henderson, DO [address] [facility] [place] [address] PCP - General Family Practice 11/13/14 Kath Sosa MD [address] [place] [address] Gastroenterology 09/17/21 Fishing Lure Assembler Relationship Specialty Start Date End Date Drake Henderson, DO [address] [facility] [place] [address] PCP - General Family Practice 11/13/14 Kath Sosa MD [address] [place] [address] Gastroenterology 09/17/21 Fishing Lure Assembler Relationship Specialty Start Date End Date Drake Henderson, DO [address] [facility] [place] [address] PCP - General Family Practice 11/13/14 Kath Sosa MD [address] [place] [address] Gastroenterology 09/17/21 Fishing Lure Assembler Relationship Specialty Start Date End Date Drake Henderson, DO [address] [place] [address] PCP - General Family Practice 11/13/14 Kath Sosa MD [address] [place] [address] Gastroenterology 09/17/21 Fishing Lure Assembler Relationship Specialty Start Date End Date Drake Henderson, DO [address] [place] [address] PCP - General Family Practice 11/13/14 Kath Sosa MD [address] [place] [address] Gastroenterology 09/17/21 Fishing Lure Assembler Relationship Specialty Start Date End Date Darke Henderson, DO [address] [place] [address] PCP - General Family Practice 11/13/14 Kath Sosa MD [address] [place] [address] Gastroenterology 09/17/21 Fishing Lure Assembler Relationship Specialty Start Date End Date Drake Henderson, DO [address] [place] [address] PCP - General Family Practice 11/13/14 Kath Sosa MD [address] [place] [address] Gastroenterology 09/17/21 Fishing Lure Assembler Relationship Specialty Start Date End Date Drake Henderson, DO [address] [facility] [place] [address] PCP - General Family Practice 11/13/14 Kath Sosa MD [address] [place] [address] Gastroenterology 09/17/21 Fishing Lure Assembler Relationship Specialty Start Date End Date Drake Henderson, DO [address] [facility] [place] [address] PCP - General Family Practice 11/13/14 Kath Sosa MD [address] [place] [address] Gastroenterology 09/17/21 Fishing Lure Assembler Relationship Specialty Start Date End Date Drake Henderson, DO [address] [facility] [place] [address] PCP - General Family Medicine 11/13/14 Kath Sosa MD [address] [place] [address] Gastroenterology 09/17/21 Fishing Lure Assembler Relationship Specialty Start Date End Date Drake Henderson, DO [address] [facility] [place] [address] PCP - General Family Medicine 11/13/14 Kath Sosa MD [address] [place] [address] Gastroenterology 09/17/21 Fishing Lure Assembler Relationship Specialty Start Date End Date Drake Henderson, DO [address] [facility] [place] [address] PCP - General Family Medicine 11/13/14 Kath Sosa MD [address] [place] [address] Gastroenterology 09/17/21 Fishing Lure Assembler Relationship Specialty Start Date End Date Drake Henderson, DO [address] [facility] [place] [address] PCP - General Family Medicine 11/13/14 Kath Sosa MD [address] [place] [address] Gastroenterology 09/17/21 Fishing Lure Assembler Relationship Specialty Start Date End Date Drake Henderson, DO [address] [facility] [place] [address] PCP - General Family Medicine 11/13/14 Kath Sosa MD [address] [place] [address] Gastroenterology 09/17/21 Fishing Lure Assembler Relationship Specialty Start Date End Date Drake Henderson, DO [address] [facility] [place] [address] PCP - General Family Medicine 11/13/14 Kath Sosa MD [address] [place] [address] Gastroenterology 09/17/21 Fishing Lure Assembler Relationship Specialty Start Date End Date Drake Henderson, DO [address] [facility] [place] [address] PCP - General Family Medicine 11/13/14 Kath Sosa MD [address] [place] [address] Gastroenterology 09/17/21 Fishing Lure Assembler Relationship Specialty Start Date End Date Drake Henderson, DO [address] [facility] [place] [address] PCP - General Family Medicine 11/13/14 Kath Sosa MD [address] [place] [address] Gastroenterology 09/17/21 Fishing Lure Assembler Relationship Specialty Start Date End Date Drake Henderson, DO [address] [facility] [place] [address] PCP - General Family Medicine 11/13/14 Kath Sosa MD [address] [place] [address] Gastroenterology 09/17/21 Fishing Lure Assembler Relationship Specialty Start Date End Date Drake Henderson, DO [address] [facility] [place] [address] PCP - General Family Medicine 11/13/14 Kath Sosa MD [address] [place] [address] Gastroenterology 09/17/21 Fishing Lure Assembler Relationship Specialty Start Date End Date Drake Henderson, DO [address] [facility] [place] [address] PCP - General Family Medicine 11/13/14 Kath Sosa MD [address] [place] [address] Gastroenterology 09/17/21 Fishing Lure Assembler Relationship Specialty Start Date End Date Drake Henderson, DO [address] [facility] [place] [address] PCP - General Family Medicine 11/13/14 Kath Sosa MD [address] [place] [address] Gastroenterology 09/17/21 Fishing Lure Assembler Relationship Specialty Start Date End Date Drake Henderson DO [address] [place] [address] PCP - General Family Medicine 11/13/14 Kath Sosa MD [address] [place] [address] Gastroenterology 09/17/21 Fishing Lure Assembler Relationship Specialty Start Date End Date Drake Henderson DO [address] [place] [address] PCP - General Family Medicine 11/13/14 Kath Sosa MD [address] [place] [address] Gastroenterology 09/17/21 Fishing Lure Assembler Relationship Specialty Start Date End Date Drake Henderson DO [address] [place] [address] PCP - General Family Medicine 11/13/14 Kath Sosa MD [address] [place] [address] Gastroenterology 09/17/21 Fishing Lure Assembler Relationship Specialty Start Date End Date Drake Henderson DO [address] [place] [address] PCP - General Family Medicine 11/13/14 Kath Sosa MD [address] [place] [address] Gastroenterology 09/17/21 Fishing Lure Assembler Relationship Specialty Start Date End Date HendersonDrake DO [address] [place] [address] PCP - General Family Medicine 11/13/14 Kath Sosa MD [address] [facility] [place] [address] Gastroenterology 09/17/21 FOR RECORDS PERTAINING TO PATIENTS WHO ARE OR HAVE BEEN ENROLLED IN A CHEMICAL DEPENDENCY/SUBSTANCEABUSE PROGRAM, SOME INFORMATION MAY BE OMITTED. This clinical summary was aggregated from multiple sources. Caution should be exercised in using it in the provision of clinical care. This summary normalizes information from multiple sources, and as a consequence, information in this document may materially change the coding, format and clinical context of patient data. In addition, data may be omitted in some cases. CLINICAL DECISIONS SHOULD BE BASED ON THE PRIMARY CLINICAL RECORDS. [employer] [facility]. provides no warranty or guarantee of the accuracy or completeness of information in this document.
[2023-06-01 13:47] VITALS: BP 103/53; PULSE 91; RESP 16; TEMP 37.1; O2SAT 100; BMI 34.4
[2023-06-01] MEDS: 0.9% NaCl IVPB Med Flush (250 mL) 15 ML IV (14:08)
[2023-06-01] MEDS: Ustekinumab 390 MG in 0.9% Normal Saline (250mL Bag) 172 ML 250 MG IV (14:12)
[2023-06-01 15:36] VITALS: BP 100/57; PULSE 81; RESP 16; TEMP 37.1; O2SAT 97
== END 2023-06-01 13:20 | disposition home or self-care (01) ==
LOC: MEDOUTP 13:20
PROVIDERS: PCP Student in an Organized Health Care Education/Training Program; Referring Provider Internal Medicine Gastroenterology; Visit Provider Internal Medicine Gastroenterology
DX: K50.90 Crohn's disease, unspecified, without complications (principal)
CPT/HCPCS: 96365; J7050; A4216; J3358

== ENCOUNTER → 2023-11-24 | Outpatient (CLI) | payer BC, SELFPAY ==
[2023-11-24 15:56] LABS: Erythrocyte Sedimentation Rate 7 mm/hr (0-30)
== END | disposition home or self-care (01) ==
PROVIDERS: PCP Student in an Organized Health Care Education/Training Program; Referring Provider Internal Medicine Gastroenterology; Visit Provider Internal Medicine Gastroenterology
DX: K50.80 Crohn's disease of both small and large intestine without complications (principal)
CPT/HCPCS: 85652; 86140

== ENCOUNTER 2024-03-28 16:28 | Emergency (ER) | payer MEDICAID, SELFPAY ==
[2024-03-28 16:29] VITALS: BP 124/74; PULSE 88; RESP 17; TEMP 36; O2SAT 99; BMI 34.6
--- NOTE | 2024-03-28 16:45 | EDS_ITS ---
HPI History of Present Illness Chief Complaint: Headache Narrative Narrative: Patient is a 33-year-old female with a past medical history of GERD, anemia, asthma, Crohn's disease, migraine headaches who presents to the emerged part with chief complaint headache. States that she went to work this morning and started to develop a headache states that this was slow in onset and gradually worsened throughout the day. States that she was sent home by her boss secondary to headache and notes that as the afternoon went on she started developing nausea vomiting associate with her headache. States that she tried to take migraine medication [id number] which she p vomited this up. patient states that she did have some spots in her vision on the right side when this headache was starting states that this has improved. [facility] Medical History (Updated 03/28/24 @ 18:[address] Roberto Carlos Tirado, DO) History of ulceration Heartburn Gastric reflux Periumbilical hernia IFG (impaired fasting glucose) Anemia History of Crohn's disease Non-smoker Hx of fracture of leg Encounter for screening for COVID-19 Acute conjunctivitis, right eye Acute sinusitis, unspecified Asthma Home Medications ?Medication ?Instructions ?Recorded ?Last Taken ?Type cholecalciferol (vitamin D3) 10 10 mcg PO DAILY 12/22/20 Unknown History mcg (400 unit) capsule (Vitamin D3) albuterol sulfate 90 mcg/actuation 1 - 2 inh inhalation PRN PRN ASTHMA 01/08/22 Unknown History aerosol inhaler dicyclomine 10 mg capsule 10 mg PO PRN PRN ABD PAIN 01/08/22 Unknown History ferrous sulfate 142 mg (45 mg 45 mg PO BID 01/08/22 Unknown History iron) tablet,extended release (Slow Release Iron) budesonide 3 mg 3 mg PO DAILY #90 ea 03/17/23 Unknown Rx capsule,delayed,extended release ondansetron 4 mg disintegrating 4 mg PO Q8H PRN PRN Nausea #10 tabs 04/16/23 Unknown Rx tablet ustekinumab 130 mg/26 mL 390 mg (78 mL) IV ONCE 05/13/23 Unknown Rx intravenous solution (Stelara) ustekinumab 90 mg/mL subcutaneous 90 mg subcut Q8W #1 mL 07/23/23 Unknown Rx syringe (Stelara) hydrocortisone acetate 25 mg 25 mg TX BID #42 ea 01/19/24 Unknown Rx rectal suppository lansoprazole 30 mg capsule,delayed 30 mg PO DAILY PRN 02/28/24 Unknown History release ondansetron 4 mg disintegrating 4 mg PO Q6H PRN nausea and 03/28/24 Unknown Rx tablet vomiting #20 tabs Allergy/AdvReac Type Severity Reaction Status Date / Time morphine AdvReac Vomiting Verified 03/28/24 16:29 pseudoephedrine HCl (From AdvReac Vomiting Verified 03/28/24 16:29 Sudafed) Surgical History History of hernia surgery History of tubal ligation History of ear surgery Hx laparoscopic cholecystectomy Social History Smoking Status: Never smoker alcohol intake: never ROS ROS ED ROS Narrative Constitutional: Complains of headache as noted above denies lightheadedness, dizziness, fevers, chills Eyes: Complains of changes with spots in her right eye associate with a headache denies any double vision Cardiovascular: Denies chest pain or palpitations Respiratory: Denies shortness of breath Abdomen: Denies abdominal pain nausea vomit diarrhea : Denies any urinary symptoms Neurological: Denies any numbness, weakness, tingling Musculoskeletal: Denies back pain Skin: Denies rashes or lesions EXAM Physical Exam Narrative Exam Narrative: General: Patient lying in bed rest comfortably did not appear to be in acute distress Head: Atraumatic, normocephalic Eyes: PERRL bilaterally, EOMI bilateral, no conjunctival injection noted Neck: Soft, supple, trachea midline, no concern for meningitis Cardiovascular: Regular rate and rhythm no murmurs gallops rubs noted Respiratory: Clear to auscultation bilaterally no rales rhonchi or wheezes noted Abdomen: Soft, nondistended, nontender to palpation bowel sounds present x 4 Extremities: +5/5 strength noted in the bilateral upper and lower extremities, radial pulses +2/4 in the bilateral per extremities Neurological: Patient follow commands knew that she was at [facility] years 24. Patient completed finger-nose and [id number] test bilaterally no difficulty. NIH of 0 GCS 15 Skin: Warm, dry, intact Const Vital Signs: 03/28/24 16:29 Temperature 96.8 F L Temperature Source Temporal Pulse Rate 88 Respiratory Rate 17 Blood Pressure 124/74 H Blood Pressure Mean 90 Pulse Ox 99 Oxygen Delivery Method Room Air MDM MDM MDM Narrative Medical decision making narrative: Patient is a 33-year-old female who presents to the emergency department chief complaint of headache. Patient will have a workup performed here on the differential diagnose includes Melamin to migraine headache, tension headache, cluster headache. Once workup is obtained reviewed she will be reevaluated. Patient be given Tylenol, Reglan, IV fluids. On reevaluation the patient's her headache is significantly improved she would like to go home at this point time. Patient states that her vision has resolved with the resolution of her headache. She was advised to continue to rotate Tylenol and ibuprofen [id number] and ensure adequate hydration. Zofran will be sent to the pharmacy. She is advised to return with worsening symptoms or other concerns. All question concerns answered she was discharged home in stable condition. Discharge Plan Triage Chief Complaint: Headache ED Provider: Roberto Carlos Tirado Dx/Rx/DC Orders Clinical Impression: Headache, migraine Prescriptions: New ondansetron 4 mg tablet,disintegrating 4 mg PO Q6H PRN (Reason: nausea and vomiting) Qty: 20 0RF No Action hydrocortisone acetate 25 mg suppository 25 mg TX BID Qty: 42 0RF lansoprazole 30 mg capsule,delayed release(DR/EC) 30 mg PO DAILY PRN cholecalciferol (vitamin D3) [Vitamin D3] 10 mcg (400 unit) Capsule 10 mcg PO DAILY albuterol sulfate 90 mcg/actuation HFA aerosol inhaler 1 - 2 inh INHALATION PRN PRN (Reason: ASTHMA) Patient Comments: inhale 2 puffs by mouth and INTO THE LUNGS every 2 hours if neede... (REFER TO PRESCRIPTION NOTES). dicyclomine 10 mg capsule 10 mg PO PRN PRN (Reason: ABD PAIN) Patient Comments: take 1 capsule by mouth three times a day if needed for abdominal pain Slow Release Iron 142 mg (45 mg iron) tablet extended release 45 mg PO BID Patient Comments: take 1 tablet by mouth twice a day with meals ondansetron [ondansetron] 4 mg tablet,disintegrating 4 mg PO Q8H PRN PRN (Reason: Nausea) Qty: 10 0RF budesonide 3 mg capsule,delayed,extend.release 3 mg PO DAILY Qty: 90 2RF Stelara 130 mg/26 mL solution 390 mg IV ONCE Rx Instructions: Infuse 390mg via IV per protocol for weight of 84.09kg Infusion: Auth: [id number] Valid 04/21/23- 06/16/2023 Stelara 90 mg/mL syringe 90 mg subcut Q8W Qty: 1 5RF Rx Instructions: Injection: Auth: [id number] Valid: 05/12/2023- 09/08/2023 Primary Care Provider: Drake Whiting Referrals: Drake Whiting DO [Primary Care Provider] - Activity Restrictions/Additional Instructions: Rotate Tylenol and ibuprofen for pain control. Ensure adequate hydration. Use Zofran as prescribed. Return with worsening symptoms or other concerns. Print Language: Azerbaijani Disposition Disposition: Home, Self Care
[2024-03-28] MEDS: 0.9% Normal Saline (1000mL) 1,000 ML 999 ML IV (17:15)
[2024-03-28] MEDS: Metoclopramide 10 MG/2 ML Vial IV (17:15)
[2024-03-28] MEDS: Acetaminophen 500 MG Tablet 1000 MG PO (17:15)
[2024-03-28 17:48] LABS: Red Blood Cells-Urine 0 SEEN /hpf (0-5)
[2024-03-28 17:57] LABS: Color, Urine Yellow (Yellow); Glucose, Dipstick Normal (Normal); Leukocyte Esterase-Dipstick 25 /ul (Negative); Nitrite-Dipstick Negative (Negative); Occult Blood-Urine Negative /ul (Negative); Protein-Dipstick 15 mg/dl (Negative); Urine Bilirubin Dipstick Negative (Negative); Urine Clarity Sl. Cloudy (Clear); Urine Urobilinogen Normal (Normal)
[2024-03-28 18:06] LABS: Ketone-Dipstick 150 mg/dl (Negative)
[2024-03-28 18:07] LABS: Internal QC Validated? YES +Cl - CLEAR BKGD; Pregnancy, Urine Negative Negative; Record Kit Lot#,Urine Preg 869294
[2024-03-28 18:12] LABS: Bacteria 1+ /hpf (None Seen); Mucous, Urine 3+ /hpf (<or=2+); Squamous Epithelial Cells - UA 10-25 SEEN /hpf (5-10); White Blood Cells 0-5 SEEN /hpf (0-5)
[2024-03-28 18:13] LABS: Amorphous Sediment R
== END 2024-03-28 18:40 | disposition home or self-care (01) ==
PROVIDERS: Emergency Provider Emergency Medicine; PCP Student in an Organized Health Care Education/Training Program; Visit Provider Emergency Medicine
DX: G43.909 Migraine, unspecified, not intractable, without status migrainosus (principal); K50.90 Crohn's disease, unspecified, without complications; Z90.49 Acquired absence of other specified parts of digestive tract; Z98.51 Tubal ligation status; D64.9 Anemia, unspecified; K21.9 Gastro-esophageal reflux disease without esophagitis
CPT/HCPCS: 81001; 81025; 96361; 96374; 99283

== ENCOUNTER 2024-04-03 06:38 | Day surgery (SDC) | payer MEDICAID, SELFPAY ==
[2024-04-03] VITALS (10 sets, daily range): BP systolic 90–114; BP diastolic 57–64; PULSE 79–96; RESP 16–18; TEMP 36.2–36.7; O2SAT 94–100; BMI 34.7
--- NOTE | 2024-04-03 06:47 | HP.PCM_ITS ---
History and Physical Date of Admission: 04/03/24 SHOSHANA GUILLEN, is a 33 F who presents to the office today for follow up. [facility] established for management of Crohn?s disease. LV 12.03.21 indicates? Pentasa QID and entocort taper?started with improvement of bowel irregularity.? Start Remicade infusions?following biochemical and tubal ligation 01.15.22?EGD and colonoscopy 07.23.21?records requested from [facility]. OV indicates stricture.?CT enterography 08.15.21?mild circumferential hyperenhancement of TI with narrowing of distal TI, caliber 6mm? ? 09.26.22/02.01.23 requested egd/colon and gi records? OV 02.22.23 Pt previously seeing GI in [place]. Would like to establish here due to distance. moderately controlled with Remicaide, Pentasa and as needed Dicyclomine. Still has some abdominal pain and diarrhea. Adjusting diet does help. Sx get worse leading up to next infusion. OV 08.20.23 Pt reports minimal symptoms or concerns. Pt is taking dicyclomine, Stelara, Vitamin D, and sucralfate. Pt states that she has small amount of blood in her stool, maybe once a week, if she has to strain. OV 02.28.24 pt reports that she is feeling well overall and denies GI symptoms of concern at this time. Pt reports 2-3 bm per day; reports occasional blood in her stool due to straining. Continues with suppositories, budesonide, and Stelara, last injection was 01.18.24. ESR / CRP Calp / Lact Serum / AB 11.24.23 7 / 13.4 -- / -- 0.7 / neg ROS Const Constitutional: No fatigue, fever(s) or weight change ENT ENT: No difficulty swallowing Gastro GI: No abdominal pain, belching, bloating, change in bowel habits, change in stool character, coffee ground emesis, constipation, cramping, diarrhea, heartburn, difficulty swallowing, feeling full early, excessive flatus, incontinent of stools, Vomiting blood/hematemesis, Blood in stool, loose stools, Black,tarry stools, nausea/dyspepsia, pain with swallowing, vomiting or other Musc Musculoskeletal: No joint pain Skin Skin: No yellowing of the eye or itchy eyes Psych Psychiatric: No anxiety and No depression Endo Endocrine: No fatigue or weight change Aller/Imm Allergy/Immunologic: No itchy eyes Estevan/Lymp Hematologic/Lymphatic: No easy bleeding or easy bruising Exam Const General: cooperative, healthy appearing, uncomfortable and no acute distress Nutritional Appearance: well nourished Orientation: alert, awake and oriented x3 [facility] Head: normal to inspection Ears: hearing grossly normal bilaterally, external ears normal, TM's normal bilaterally and EAC's normal Nose: external nose normal, nares normal, septum normal and nasal discharge clear Face and sinus: normal facial exam, sinuses nontender and face symmetric Mouth: oral mucosae normal, lip normal, tongue normal and oropharynx normal Throat: posterior oropharynx normal, tonsils normal, uvula midline and no postnasal drainage Eyes General: appearance normal, both eyes and all related structures Neck Neck: normal visual inspection, full ROM, no lymphadenopathy, no meningeal signs and supple Neck mass: No Thyroid: thyroid normal Lymphatic: no lymphadenopathy noted Chest Chest palpation & inspection: normal inspection of the chest Resp Effort & Inspection: normal respiratory effort, able to speak in complete sentences, symmetric chest movement and cough Quality of cough: dry (Nonproductive in office today) Auscultation: Bilateral: Clear to Auscultation Cardio Palpation: normal PMI Rate: tachycardic Rhythm: regular rhythm Heart Sounds: S1 normal, S2 normal, no gallops, no murmurs and no rubs Pulses: radial pulses present GI Inspection: normal to inspection Palpation: soft and no hepatosplenomegaly Skin General: no rashes or lesions noted Neuro General: patient alert, patient awake, patient oriented x3 and gait normal Cognition: normal cognition Speech: speech normal Gait: normal gait Motor: muscle tone normal throughout Sensory Exam: no sensory deficits noted Psych Appearance: grossly normal Mental Status: mental status grossly normal Mood: congruent mood Affect: normal affect Speech and Movement: speech and movement normal Attitude: cooperative Thought Process: normal Thought Content: normal Judgment: judgment good Assessment and Plan Assessment and Plan (1) Crohn's disease: Status: Acute Qualifiers: Gastrointestinal tract location: small and large intestine Digestive disease complication type: without complication Qualified Code(s): K50.80 - Crohn's disease of both small and large intestine without complications Plan: 32-year-old with past medical history of Crohn's disease involving the small intestines but typically the ileum and the right side of the colon including the cecum, ileocecal valve and ascending colon that was seen previously on colonoscopy. She had a CT enterography that also showed some possible narrowing consistent with inflammatory Crohn's disease of the terminal ileum. She does not have any extraintestinal manifestations of Crohn's disease including no findings, pancreatic findings, liver findings, skin findings. She is not having any night sweats or fatigue. She does not know if she has had a updated hepatitis B or Tuberculosis screening. She takes Remicade every 8 weeks at a 5 mg/kg dose and she takes Pentasa 4 times a day at a dose of 500 mg. She notices that she starts getting symptoms. Therefore we switched her to Stelara. She underwent an upper endoscopy and was discovered to have peptic ulcer disease. Biopsies were negative for H. pylori, intestinal metaplasia dysplasia or cancer. We gave her Carafate therapy. She has been on that for approximately 8 weeks. She likes to take that because she is able to have more solid stools with that. She underwent a colonoscopy and was covered to have terminal ileitis with some aphthous ulcerations. Since being instituted on Stelara therapy she is having more formed stools with 1-2 bowel movements a day with occasional blood with constipation. She is having no tenesmus, cramping, abdominal pain, bloating or indigestion. She is also eliminated pork from her diet. She thinks this has had a great effect on her. She will continue current medication regimen and follow-up in 6 months we will get stool studies and biochemical workup to confirm Stelara levels and antibody levels. She is doing very well from a GI standpoint regarding her Crohn's disease. She has minimal abdominal pain, cramping, nausea or diarrhea. She does get occasional loose stools with eating which is to be expected in a patient that is status post cholecystectomy. She is having some intermittent bleeding per rectum which is painless. I think it is likely hemorrhoidal bleeding. I offered her the option of banding versus topical therapy. She said she would think about it and get back to me. (2) Dysphagia: Status: Acute Plan: She is also having intermittent esophageal dysphagia. She does have gastroesophageal reflux disease and underwent an upper endoscopy which had shown erosive esophagitis along with an esophageal ring at the distal esophagus. She did not undergo dilation at that time. I thought she do fine with medical therapy. However she says she does not want to take medical therapy and low she will undergo esophageal dilation. She will undergo an upper endoscopy. She was explained alternatives, risk, benefits include not withstanding bleeding, infection, sepsis, perforation, need for emergent urgent . She have an ASA of 3. I have examined the patient and the H&P has been reviewed. There are no clinical changes since date of exam.
--- NOTE | 2024-04-03 07:14 | PRE.ANES_ITS ---
ASA Classification* ASA Classification ASA Classification: 2 Assessment & Plan Anesthesia* Anesthesia Assessment Anesthesia Assessment: Discussed sedation and/or anesthesia options, risks, benefits, and alternatives with patient/parents/legal guardian/POA. Questions invited. The patient/parents/legal guardian/POA seems to understand and agrees to proceed with anesthesia plan. Reviewed the physical assessment, medical history, allergy history and patient home medications list prior to surgery/procedure/anesthetic and documented any changes. Performed airway and anesthesia risk assessments. Anesthesia Type Anesthesia Type: MAC Anesthesia Focused Assessment* Temperature: 98.1 F Pulse Rate: 90 Blood Pressure: 114/62 Respiratory Rate: 18 Pulse Ox: 100 Airway Assessment Mouth opens: >3 cm Mallampati Score: II Focused Labs Anesthesia Preop lab: CBC WBC 9.1 K/mm3 (4.4-11.0) 04/16/23 19:30 RBC 4.05 M/mm3 (4.2-5.4) L 04/16/23 19:30 Hgb 12.1 g/dL (12.0-15.0) 04/16/23 19:30 Hct 36.6 % (37-47) L 04/16/23 19:30 Plt Count 297 K/mm3 (150-450) 04/16/23 19:30 CHEMISTRY Potassium 3.5 mmol/L (3.5-5.1) 04/16/23 19:30 Sodium 139 mmol/L (136-145) 04/16/23 19:30 BUN 8 mg/dL (7-18) 04/16/23 19:30 Creatinine 0.77 mg/dL (0.55-1.02) 04/16/23 19:30 Glucose 104 mg/dL (74-106) 04/16/23 19:30 POC Glucose 87 mg/dL (70-110) 02/10/17 12:50 TSH 1.05 uIU/mL (0.358-3.74) 02/22/23 10:50 COAG PT 14.1 SECONDS (11.7-14.9) 05/05/19 10:59 HCG, Quant 205 mIU/mL (<9 non-preg) H 02/15/14 00:10 Urine Test Negative Negative 03/28/24 17:29 Pre-Assessment Diagnosis/Proposed Procedure Planned Operative Procedure(s): EGD Anesthesia History Anesthesia History - transportation services representative: Anesthesia History - transportation services representative Hx Hospitalization No 03/30/24 09:15 Any Problems With Anesthesia No 03/30/24 09:15 Cholinesterase deficiency No 03/30/24 09:15 You/Your Family Experience No 03/30/24 09:15 fever (hyperthermia) with Relationship Recent Exposure to Contagious No 04/03/24 07:03 Disease Does patient have nerve No 03/30/24 09:15 stimulator Patient instructed to have device shut off --Does patient have Pacemaker No 04/03/24 07:03 or ICD? When Was Last Pacemaker Check QUESTION #4 FULL TEXT: You/Your Family Experience fever (hyperthermia) with Anesthesia Last Oral Intake Last Oral intake: Last Oral Intake NPO since 23:00 04/03/24 07:03 Meds taken in AM with sips of No 04/03/24 07:03 water? Meds patient instructed to take am of surgery PONV PONV - transportation services representative: PONV - transportation services representative Female Yes 03/30/24 09:15 HX of Motion Sickness Yes 03/30/24 09:15 HX of N/V After Surgery Yes 03/30/24 09:15 Non-Smoker Yes 03/30/24 09:15 Duration of Surgery greater No 03/30/24 09:15 than 60 minutes Number of Risk Factors 4 03/30/24 09:15 PONV Score Severe Risk 03/30/24 09:15 Height & Weight Height & Weight: Anesthesia: Height & Weight Height 5 ft 2 in 04/03/24 07:03 Weight: 86.1 kg 04/03/24 07:03 Body Mass Index (BMI) 34.7 04/03/24 07:03 Respiratory Assessment Respiratory Assessment - transportation services representative: Respiratory Tract Infection Hx - transportation services representative Hx Respiratory Tract Infection No 03/30/24 09:15 STOP Sleep Apnea STOP Sleep Apnea - transportation services representative: STOP Sleep Apnea - transportation services representative Hx Hypertension No 03/30/24 09:15 Hx Sleep Apnea No 03/30/24 09:15 CPAP BIPAP Do you snore loudly (louder No 03/30/24 09:15 than talking or can be heard Do you often feel tired/ No 03/30/24 09:15 fatigued/ sleepy during daytime? Has anyone observed you stop No 03/30/24 09:15 breathing during sleep? STOP Results Negative 03/30/24 09:15 QUESTION #5 FULL TEXT : Do you snore loudly (louder than talking or can be heard through closed doors)? Tobacco Use History Tobacco Use History - transportation services representative: Tobacco Use History - transportation services representative Tobacco Use Non-smoker 01/27/21 13:45 Smoking Status Never smoker 03/30/24 09:15 Hx Tobacco Use No 03/30/24 09:15 Years Smoking Packs Smoked per Day Smoking Cessation Date was within the last 15 years Hx Smoking Cessation Date Hx Smoking Cessation Counseling Hematologic Medial History Hematologic Hx - transportation services representative: Hematologic Medical Hx - engineering documentation specialist Hx of Blood Transfusion No 03/30/24 09:15 Hx of Transfusion in last 3 No 03/30/24 09:15 Months Date of Last Transfusion (if within last 3 months) Ever experience any problems No 03/30/24 09:15 with transfusion(s)? Specify any problems Hx of Preganancy in last 3 No 03/30/24 09:15 Months Nurse Filling Out Transfusion [email or web address] 03/30/24 09:15 & Questions: Date: 03/30/24 03/30/24 09:15 Time: 09:17 03/30/24 09:15 Patient unable to answer at this time (ie. confused, unrespo /Reproduction History /Reproductive History - transportation services representative: /Reproductive Hx- transportation services representative Hx Now No 03/30/24 09:15 Gestational Age (in weeks): EDC: Hx Hx Para Hx Section SAB No 03/28/24 16:29 PFSH Medical History Easy bruising History of ulceration Heartburn Gastric reflux Periumbilical hernia IFG (impaired fasting glucose) Anemia History of Crohn's disease Non-smoker Hx of fracture of leg Encounter for screening for COVID-19 Acute conjunctivitis, right eye Acute sinusitis, unspecified Asthma Home Medications ?Medication ?Instructions ?Recorded ?Last Taken ?Type cholecalciferol (vitamin D3) 10 10 mcg PO DAILY 12/22/20 Unknown History mcg (400 unit) capsule (Vitamin D3) albuterol sulfate 90 mcg/actuation 1 - 2 inh inhalation PRN PRN ASTHMA 01/08/22 Unknown History aerosol inhaler dicyclomine 10 mg capsule 10 mg PO PRN PRN ABD PAIN 01/08/22 Unknown History ferrous sulfate 142 mg (45 mg 45 mg PO BID 01/08/22 Unknown History iron) tablet,extended release (Slow Release Iron) budesonide 3 mg 3 mg PO DAILY #90 ea 03/17/23 Unknown Rx capsule,delayed,extended release ustekinumab 130 mg/26 mL 390 mg (78 mL) IV ONCE 05/13/23 Unknown Rx intravenous solution (Stelara) ustekinumab 90 mg/mL subcutaneous 90 mg subcut Q8W #1 mL 07/23/23 Unknown Rx syringe (Stelara) lansoprazole 30 mg capsule,delayed 30 mg PO DAILY PRN GERD 02/28/24 Unknown History release Allergy/AdvReac Type Severity Reaction Status Date / Time morphine AdvReac Vomiting Verified 04/03/24 07:03 pseudoephedrine HCl (From AdvReac Vomiting Verified 04/03/24 07:03 Sudafed) Surgical History History of hernia surgery History of tubal ligation History of ear surgery Hx laparoscopic cholecystectomy Social History Smoking Status: Never smoker alcohol intake: never Review of Systems (Anesthesia) ROS Narrative System reviewed and no additional complaints, except as documented.
--- NOTE | 2024-04-03 07:30 | EGD_PTH ---
PATIENT: SHOSHANA GUILLEN LOC: EN U#:[id number] AGE/SX: 33/F ROOM: RE04/03/[address]: Dr. Rey Alcaraz DO : 1990 BED: DIS: 04/03/2024 SPEC #: [id number] RECD: 04/03/24 10:21 STATUS: GORDON RECurry #: [id number] SAMANTA: 04/03/24 07:[address]: Rey Alcaraz DEPT: SURGICAL PATHOLOGY RECD BY: Inez Mcclure ENTERED: 04/03/24 11:23 SP TYPE: EGD BIOPSY OT DR: Dr. Drake Whiting DO Tissues: Esophagus, NOS Procedures: Surgery Specimen Level IV HEADER OPERATION: EGD with biopsy and dilatation PRE-OP DIAGNOSIS: Crohn's disease TISSUE SUBMITTED: Random esophagus biopsy MICROSCOPIC DIAGNOSIS Esophagus, random biopsy: Fragments of benign squamous mucosa. No evidence of inflammation. AM.mr 04/04/2024 MICROSCOPIC DESCRIPTION Slides are reviewed. GROSS DESCRIPTION Received in fixative is one container labeled with the patient's name and designated Random esophagus biopsy. The specimen consists of two irregular fragments of light cortes soft tissue that in aggregate measure 0.8 x 0.7 x 0.1 cm. The specimen is totally submitted in one cassette. AM. 04/03/2024 TC:5 CPT:23812
--- NOTE | 2024-04-03 08:06 | PCM.POST.ANE ---
Anesthesia: Postop Eval I Current Vital Signs Temperature: 97.1 F Pulse Rate: 92 Blood Pressure: 90/57 Respiratory Rate: 16 Pulse Ox: 95 Oxygen Delivery Method: Room Air Assessment Airway patent: Yes Spontaneous unlabored respirations: Yes Mental status: Asleep nausea: No Vomiting: No Anesthesia Complication: No Fluid Hydration Crystalloid volume administer (ml): 30 Total IV fluid infused: 30 Progress Note Anesthesia document: Postop Eval 1 completed: Yes
--- NOTE | 2024-04-03 08:09 | OP.EGD_ITS ---
Patient Name: Mary Ruiz Procedure Date: 04/03/2024 7:45 AM Date of : 1990 Age: 33 Procedure: Upper GI endoscopy Indications: Dysphagia Providers: Rey Alcaraz DO Referring MD: Drake Whiting Medicines: Monitored Anesthesia Care Patient Profile: This is a 33 year old female. Refer to note in patient chart for documentation of history and physical. Patient has symptoms of dysphagia with both liquids and solids. Complications: No immediate complications. Procedure: Pre-Anesthesia Assessment: - Prior to the procedure, a History and Physical was performed, and patient medications and allergies were reviewed. The patient is competent. The risks and benefits of the procedure and the sedation options and risks were discussed with the patient. All questions were answered and informed consent was obtained. Patient identification and proposed procedure were verified by the physician in the pre-procedure area. Mental Status Examination: alert and oriented. Prophylactic Antibiotics: The patient does not require prophylactic antibiotics. Prior Anticoagulants: The patient has taken no anticoagulant or antiplatelet agents except for NSAID medication. ASA Grade Assessment: II - A patient with mild systemic disease. After reviewing the risks and benefits, the patient was deemed in satisfactory condition to undergo the procedure. The anesthesia plan was to use monitored anesthesia care (MAC). Immediately prior to administration of medications, the patient was re-assessed for adequacy to receive sedatives. The heart rate, respiratory rate, oxygen saturations, blood pressure, adequacy of pulmonary ventilation, and response to care were monitored throughout the procedure. The physical status of the patient was re-assessed after the procedure. After obtaining informed consent, the endoscope was passed under direct vision. Throughout the procedure, the patient's blood pressure, pulse, and oxygen saturations were monitored continuously. The gastroscope was introduced through the mouth, and advanced to the second part of duodenum. The upper GI endoscopy was accomplished without difficulty. The patient tolerated the procedure well. Scope In: 7:54:40 AM Scope Out: 7:58:39 AM Total Procedure Duration Time 0 hours 3 minutes 59 seconds Findings: Mucosal changes including feline appearance, longitudinal furrows and small-caliber esophagus were found in the middle third of the esophagus and in the lower third of the esophagus. Biopsies were obtained from the proximal and distal esophagus with cold forceps for histology of suspected eosinophilic esophagitis. Verification of patient identification for the specimen was done. A guidewire was placed and the scope was withdrawn. Dilation was performed with a Savary dilator with no resistance at 60 Fr. The dilation site was examined and showed moderate improvement in luminal narrowing. Estimated blood loss was minimal. A large amount of food (residue) was found in the entire examined stomach. No gross lesions were noted in the duodenal bulb. Impression: - Esophageal mucosal changes secondary to eosinophilic esophagitis. Dilated. - A large amount of food (residue) in the stomach. - No gross lesions in the duodenal bulb. - Biopsies were taken with a cold forceps for evaluation of eosinophilic esophagitis. Recommendation: - Discharge patient to home. - Resume previous diet. - Continue present medications. - Await pathology results. - Metoclopramide 5 mg p.o. 3 times daily x 21 days Procedure Code(s): --- Professional --- 46581, Esophagogastroduodenoscopy, flexible, transoral; with insertion of guide wire followed by passage of dilator(s) through esophagus over guide wire 79109, 59,51, Esophagogastroduodenoscopy, flexible, transoral; with biopsy, single or multiple CPT copyright 2021 [employer]. All rights reserved. The codes documented in this report are preliminary and upon chief i dispatcher review may be revised to meet current compliance requirements. Rey Alcaraz DO 04/03/2024 8:09:10 AM This report has been signed electronically. Number of Addenda: 0 Note Initiated On: 04/03/2024 7:45 AM
--- NOTE | 2024-04-03 08:09 | OP.CCLET_ITS ---
04/03/2024 Drake Whiting [address] [place] [address] Re : Upper GI endoscopy procedure for Mary Ruiz Dear Dr. Whiting This procedure was performed on Wednesday, April 03, 2024. My impressions and recommendations are as follows: Impressions : - Esophageal mucosal changes secondary to eosinophilic esophagitis. Dilated. - A large amount of food (residue) in the stomach. - No gross lesions in the duodenal bulb. - Biopsies were taken with a cold forceps for evaluation of eosinophilic esophagitis. Recommendations : - Discharge patient to home. - Resume previous diet. - Continue present medications. - Await pathology results. - Metoclopramide 5 mg p.o. 3 times daily x 21 days My findings are described in the full procedure note, which is enclosed. If I can be of further assistance, please feel free to contact me at . Sincerely, Rey Alcaraz, 04/03/2024 8:09:10 AM This report has been signed electronically.
--- NOTE | 2024-04-03 09:21 | PCM.POSTANE2 ---
Anesthesia Postop Eval I Sum Postop Eval Completion status Anesthesia document: Postop Eval 1 completed: Yes Anesthesia Postop Eval I Summary Anesthesia Postop Eval I Summary: Anesthesia Postop Eval I: Assessment Summary Airway patent Yes 04/03/24 08:07 [email or web address] Spontaneous unlabored Yes 04/03/24 08:07 [email or web address] respirations Mental status Asleep 04/03/24 08:07 [email or web address] nausea No 04/03/24 08:07 [email or web address] Vomiting No 04/03/24 08:07 [email or web address] Anesthesia Postop Eval I: Fluid Summary Crystalloid volume administer 30 04/03/24 08:07 [email or web address] (ml) Colloids volume administered ( ml) Blood Product volume administered (ml) Total IV fluid infused 30 04/03/24 08:07 [email or web address] Anesthesia Postop Eval I: Summary Notes Anesthesia Complication No 04/03/24 08:07 [email or web address] Anesthesia Complication Comment: Post-operative progress note Anesthesia: Postop Eval II Evaluation Mental status: Awake Pain Level: 1 nausea: No Vomiting: No
== END 2024-04-03 09:00 | disposition home or self-care (01) ==
LOC: EN 06:39 → AC 06:41
PROVIDERS: PCP Student in an Organized Health Care Education/Training Program; Referring Provider Student in an Organized Health Care Education/Training Program; Visit Provider Internal Medicine Gastroenterology
PROC: 0DJ08ZZ Inspection of Upper Intestinal Tract, Via Natural or Artificial Opening Endoscopic (ICD-10-PCS; CPT 43235; principal; 2024-04-03 07:25)
DX: R13.10 Dysphagia, unspecified (principal); K50.80 Crohn's disease of both small and large intestine without complications; K20.0 Eosinophilic esophagitis; Z79.899 Other long term (current) drug therapy; Z90.49 Acquired absence of other specified parts of digestive tract
CPT/HCPCS: 43239; 43248; 88305; A4216; C1769; J2405

== ENCOUNTER → 2024-08-23 | Outpatient (CLI) | payer MEDICAID, SELFPAY ==
[2024-08-23 16:17] LABS: Erythrocyte Sedimentation Rate 19 mm/hr (0-30)
== END | disposition home or self-care (01) ==
LOC: LAB 14:20
PROVIDERS: PCP Student in an Organized Health Care Education/Training Program; Referring Provider Internal Medicine Gastroenterology; Visit Provider Internal Medicine Gastroenterology
DX: K50.80 Crohn's disease of both small and large intestine without complications (principal)
CPT/HCPCS: 36415; 85652; 86140

== ENCOUNTER → 2024-09-14 | Outpatient (CLI) | payer MEDICAID, SELFPAY ==
--- NOTE | 2024-09-14 07:07 | CT_ITS ---
PROCEDURE: ABDOMEN/PELVIS WITH CONTRAST 09/15/2024 REASON FOR EXAM: CROHN'S DISEASE AND ABD PAIN TECHNIQUE: Abdomen and pelvis CT with intravenous contrast. Coronal and Sagittal reconstruction series were provided. One or more dose reduction techniques were used (e.g., Automated exposure control, adjustment of the mA and/or kV according to patient size, use of iterative reconstruction technique. RADIATION DOSE SUMMARY: CTDlvol: mGy DLP: mGycm COMPARISON: 04-16-2023 FINDINGS: Average sized liver showing homogenous parenchymal attenuation Prominent extra-hepatic biliary tracts. Cholecystectomy. Normal appearance of the pancreas with clear surrounding fat planes. The spleen, adrenal glands, aorta and IVC are unremarkable. Both kidneys are of average size and showing smooth outline with preserved parenchymal thickness. No renal calculi. No hydronephrosis. Under distension of the urinary bladder showing uniform mural thickening with no obvious masses. No obvious masses related to the pelvic viscera. The appendix appears unremarkable. No right iliac inflammatory changes. Colonic diverticulosis. No diverticulitis. The small bowel loops are unremarkable. The stomach is unremarkable. Small fat containing umbilical hernia No ascites or free air. No obvious pathologically enlarged lymph nodes. Scanned osseous structures show no osseous destruction. Scanned lung bases show no obvious abnormalities. CT/Abdomen/Pelvis WITH Contrast IMPRESSION: Stable study findings as detailed. No acute pelvi-abdominal abnormalities, collections or free air. OVERALL FINAL ASSESSMENT: . LI-RADS is not meant to be used in patients <18 years or patients with cirrhosi s due to congenital hepatic fibrosis or due to vascular disorders, because these patients have a lower chance of developing HC C. Reading Location: [facility]
== END | disposition home or self-care (01) ==
LOC: CT 16:53
PROVIDERS: PCP Student in an Organized Health Care Education/Training Program; Referring Provider Internal Medicine Gastroenterology; Visit Provider Internal Medicine Gastroenterology
DX: K50.80 Crohn's disease of both small and large intestine without complications (principal); R10.9 Unspecified abdominal pain
CPT/HCPCS: 74177; Q9967; A4216

== ENCOUNTER 2024-09-28 13:04 | Outpatient (CLI) | payer MEDICAID, SELFPAY ==
[2024-09-28 13:24] VITALS: BP 106/55; PULSE 78; RESP 16; TEMP 35.6; O2SAT 99
[2024-09-28] MEDS: Vedolizumab 300 MG in 0.9% Normal Saline (250mL Bag) 250 ML 500 MG IV (13:46)
[2024-09-28 14:37] VITALS: BP 102/56; PULSE 84; RESP 16; TEMP 35.9; O2SAT 100
== END 2024-09-28 23:59 | disposition home or self-care (01) ==
LOC: MEDOUTP 13:04
PROVIDERS: PCP Student in an Organized Health Care Education/Training Program; Referring Provider Internal Medicine Gastroenterology; Visit Provider Internal Medicine Gastroenterology
DX: K50.90 Crohn's disease, unspecified, without complications (principal)
CPT/HCPCS: 96365; A4216; J3380

== ENCOUNTER 2024-10-12 09:14 | Outpatient (CLI) | payer MEDICAID, SELFPAY ==
[2024-10-12 09:19] VITALS: BP 116/66; PULSE 75; RESP 16; TEMP 35.6; O2SAT 100
[2024-10-12] MEDS: 0.9% NaCl Peripheral Flush Adult IV (09:23)
[2024-10-12] MEDS: 0.9% NaCl IVPB Med Flush (100mL) 15 ML IV (09:26)
[2024-10-12] MEDS: Vedolizumab 300 MG in 0.9% Normal Saline (250mL Bag) 250 ML 500 MG IV (09:32)
[2024-10-12 10:16] VITALS: BP 105/61; PULSE 75; RESP 16; TEMP 35.9; O2SAT 99
== END 2024-10-12 23:59 | disposition home or self-care (01) ==
LOC: MEDOUTP 09:14
PROVIDERS: PCP Student in an Organized Health Care Education/Training Program; Referring Provider Internal Medicine Gastroenterology; Visit Provider Internal Medicine Gastroenterology
DX: K50.90 Crohn's disease, unspecified, without complications (principal)
CPT/HCPCS: 96365; A4216; J3380

== ENCOUNTER 2024-11-09 12:04 | Outpatient (CLI) | payer MEDICAID, SELFPAY ==
[2024-11-09 12:22] VITALS: BP 113/68; PULSE 89; RESP 16; TEMP 36.2; O2SAT 99
[2024-11-09] MEDS: 0.9% NaCl Peripheral Flush Adult IV (12:57)
[2024-11-09] MEDS: 0.9% NaCl IVPB Med Flush (100mL) 15 ML IV (12:57)
[2024-11-09] MEDS: Vedolizumab 300 MG in 0.9% Normal Saline (250mL Bag) 250 ML 500 MG IV (12:58)
== END 2024-11-09 23:59 | disposition home or self-care (01) ==
LOC: MEDOUTP 12:05
PROVIDERS: PCP Student in an Organized Health Care Education/Training Program; Referring Provider Internal Medicine Gastroenterology; Visit Provider Internal Medicine Gastroenterology
DX: K50.90 Crohn's disease, unspecified, without complications (principal)
CPT/HCPCS: 96365; A4216; J3380

== ENCOUNTER → 2024-12-21 | Outpatient (CLI) | payer MEDICAID, SELFPAY ==
[2024-12-21 16:45] LABS: AST(SGOT) 15 U/L (<=31); Alanine Aminotransfer ALT/SGPT 11 U/L (<=34); Albumin, Serum 4.1 g/dL (3.5-5.0); Alkaline Phosphatase 86 U/L (35-104); Amylase 34 U/L (28-100); Anion Gap 11 (5-15); BUN 11 mg/dL (4-19); BUN/Creat Ratio 12.7 RATIO (10-20); Calcium,Total 9.0 mg/dL (7.6-11.0); Carbon Dioxide 24.9 mmol/L (21.0-32.0); Chloride 103 mmol/L (98-108); Globulin 3.1 g/dL (2.2-4.2); Glucose 99 mg/dL (70-99); Lipase 29 U/L (13-75); Potassium 4.2 mmol/L (3.3-5.1)
[2024-12-21 16:57] LABS: CRP 13.00 mg/L (0.0-3.0); Hematocrit 37.0 % (37-47); Hemoglobin 12.0 g/dL (12.0-15.0); Immature Granulocytes Count 0.020 X10^3/uL (0.0-0.0); Mean Corp Hgb Conc 32.4 g/dL (32-36); Mean Corpuscular Volume 91.4 fL (81-99); Mean Platelet Vol. 9.9 fl (6.2-12.0); NRBC Flagged by Analyzer 0 % (0-5); Platelet Count 314 K/mm3 (150-450); RBC Distribution Width CV 12.5 % (11.6-14.6); RBC Distribution Width SD 41.8 fl (35.1-43.9); Red Blood Count 4.05 M/mm3 (4.2-5.4); White Blood Count 9.2 K/mm3 (4.4-11.0)
== END | disposition home or self-care (01) ==
PROVIDERS: PCP Student in an Organized Health Care Education/Training Program; Referring Provider Internal Medicine Gastroenterology; Visit Provider Internal Medicine Gastroenterology
DX: K50.80 Crohn's disease of both small and large intestine without complications (principal); R13.10 Dysphagia, unspecified
CPT/HCPCS: 36415; 80053; 82150; 83036; 83690; 84443; 85025; 85652; 86140

== ENCOUNTER 2025-01-02 14:31 | Outpatient (CLI) | payer MEDICAID, SELFPAY ==
[2025-01-02 14:40] VITALS: BP 114/72; PULSE 80; RESP 16; TEMP 36; O2SAT 100; BMI 33.8
[2025-01-02] MEDS: 0.9% NaCl Peripheral Flush Adult IV (14:51)
[2025-01-02] MEDS: Vedolizumab 300 MG in 0.9% Normal Saline (250mL Bag) 250 ML 500 MG IV (15:05)
[2025-01-02] MEDS: 0.9% NaCl IVPB Med Flush (100mL) 15 ML IV (15:05)
[2025-01-02 15:48] VITALS: BP 101/62; PULSE 82; RESP 16; TEMP 36.8; O2SAT 99
== END 2025-01-02 23:59 | disposition home or self-care (01) ==
LOC: MEDOUTP 14:32
PROVIDERS: PCP Student in an Organized Health Care Education/Training Program; Referring Provider Internal Medicine Gastroenterology; Visit Provider Internal Medicine Gastroenterology
DX: K50.90 Crohn's disease, unspecified, without complications (principal)
CPT/HCPCS: 96365; A4216; J3380

== ENCOUNTER 2025-02-27 13:44 | Outpatient (CLI) | payer MEDICAID, SELFPAY ==
[2025-02-27 13:56] VITALS: BP 114/82; PULSE 82; RESP 16; TEMP 36.1; O2SAT 97
[2025-02-27] MEDS: 0.9% NaCl Peripheral Flush Adult IV (14:02)
[2025-02-27] MEDS: 0.9% NaCl IVPB Med Flush (100mL) 15 ML IV (14:09)
[2025-02-27] MEDS: Vedolizumab 300 MG in 0.9% Normal Saline (250mL Bag) 250 ML 500 MG IV (14:35)
[2025-02-27 15:22] VITALS: BP 115/70; PULSE 73; RESP 16
== END 2025-02-27 23:59 | disposition home or self-care (01) ==
LOC: MEDOUTP 13:44
PROVIDERS: PCP Student in an Organized Health Care Education/Training Program; Referring Provider Internal Medicine Gastroenterology; Visit Provider Internal Medicine Gastroenterology
DX: K50.90 Crohn's disease, unspecified, without complications (principal)
CPT/HCPCS: 96365; A4216; J3380

== ENCOUNTER 2025-03-22 10:19 | Day surgery (SDC) | payer MEDICAID, SELFPAY ==
[2025-03-22] VITALS (8 sets, daily range): BP systolic 105–115; BP diastolic 67–81; PULSE 70–92; RESP 16–18; TEMP 36.2–36.3; O2SAT 94–100; BMI 35.9
[2025-03-22] MEDS: Lactated Ringers 1,000 ML 15 ML IV (11:29)
--- NOTE | 2025-03-22 11:31 | PCM.HP.STD ---
HPI - General General Date of Admission: 03/22/25 Date of Service: 03/22/25 Chief Complaint: abdominal pain and dysphagia HPI Narrative SHOSHANA GUILLEN, is a 34 F who presents for evaluation of her upper GI tract. [facility] established for management of Crohn’s disease. LV 12.03.21 indicates Pentasa QID and entocort taper started with improvement of bowel irregularity. Start Remicade infusions following biochemical and tubal ligation 01.15.22 EGD and colonoscopy 07.23.21 records requested from [facility]. OV indicates stricture. CT enterography 08.15.21 mild circumferential hyperenhancement of TI with narrowing of distal TI, caliber 6mm 09.26.22/02.01.23 requested egd/colon and gi records OV 02.22.23 Pt previously seeing GI in [place]. Would like to establish here due to distance. moderately controlled with Remicaide, Pentasa and as needed Dicyclomine. Still has some abdominal pain and diarrhea. Adjusting diet does help. Sx get worse leading up to next infusion. OV 4 Pt reports minimal symptoms or concerns. Pt is taking dicyclomine, Stelara, Vitamin D, and sucralfate. Pt states that she has small amount of blood in her stool, maybe once a week, if she has to strain. OV 02.28.24 pt reports that she is feeling well overall and denies GI symptoms of concern at this time. Pt reports 2-3 bm per day; reports occasional blood in her stool due to straining. Continues with suppositories, budesonide, and Stelara, last injection was 01.18.24. EGD 04.03.24 Esophageal mucosal changes secondary to eosinophilic esophagitis. Dilated. A large amount of food (residue) in the stomach. No gross lesions in the duodenal bulb. Biopsies were taken with a cold forceps for evaluation of eosinophilic esophagitis. OV 4. pt denies GI symptoms of concern at this time. Continues with Stelara Q8W. abd/pelvis CT 09.14.24 Stable study findings as detailed. No acute pelvi-abdominal abnormalities, collections or free air. OV 10 pt reports that she has not noticed an improvement in her symptoms since switching from the Stelara to Entyvio. Pt reports that she has been vomiting more and does not think that she is digesting her food. pt reports emesis about 3 times a week. ESR / CRP Calp / Lact Serum / AB 7.17.24 7 / 13.4 -- / -- 0.7 / neg 4.16.25 19 / 14.8 -- / -- 1.8 / neg 5..25 Start Entyvio 8.14.25 15 / 13.0 -- / -- 17 / neg PFSH Medical History Easy bruising History of ulceration Heartburn Gastric reflux Periumbilical hernia IFG (impaired fasting glucose) Anemia History of Crohn's disease Non-smoker Hx of fracture of leg Encounter for screening for COVID-19 Acute conjunctivitis, right eye Acute sinusitis, unspecified Asthma Home Medications Medication Instructions Recorded Last Taken Type cholecalciferol (vitamin D3) 10 10 mcg PO DAILY 12/22/20 03/21/25 History mcg (400 unit) capsule (Vitamin D3) albuterol sulfate 90 mcg/actuation 1 - 2 inh inhalation PRN PRN ASTHMA 01/08/22 Unknown History aerosol inhaler dicyclomine 10 mg capsule 10 mg PO PRN PRN ABD PAIN 01/08/22 Unknown History ferrous sulfate 142 mg (45 mg 45 mg PO BID 01/08/22 03/19/25 History iron) tablet,extended release (Slow Release Iron) lansoprazole 30 mg capsule,delayed 30 mg PO DAILY PRN GERD 02/28/24 Unknown History release amitriptyline 10 mg tablet 10 mg PO QHS #30 tabs 12/25/24 03/21/25 Rx vedolizumab 300 mg intravenous 300 mg .Route .Q8W 02/23/25 02/26/25 History solution (Entyvio) Allergy/AdvReac Type Severity Reaction Status Date / Time morphine AdvReac Vomiting Verified 03/22/25 11:05 pseudoephedrine HCl (From AdvReac Vomiting Verified 03/22/25 11:05 Sudafed) Surgical History History of hernia surgery History of tubal ligation History of ear surgery Hx laparoscopic cholecystectomy Social History Smoking Status: Never smoker alcohol intake: never ROS Constitutional Constitutional: Denies fatigue, fever(s), poor appetite, weight gain or weight loss Gastrointestinal Gastrointestinal: Denies belching, bloating, change in bowel habits, change in stool character, chewing difficulty, coffee ground emesis, constipation, cramping, diarrhea, dyspepsia, dysphagia, early satiety, excessive flatus, fecal incontinence, heartburn, hematemesis, hematochezia, hemorrhoids, loose stools, melena, nausea, odynophagia, rectal bleeding, tenesmus, vomiting or weight changes Vital Signs Vital Signs Vital Signs: 03/22/25 11:19 03/22/25 11:19 Temperature 97.1 F L Temperature Source Temporal Pulse Rate 70 Respiratory Rate 18 Respiratory Pattern Normal Blood Pressure 111/78 Blood Pressure Mean 89 Blood Pressure Source Monitor Blood Pressure Position Semi-Fowlers Blood Pressure Location Left Forearm Pulse Ox 100 Oxygen Delivery Method Room Air Weight Weight: 196 lb 3.382 oz Body Mass Index (BMI) 35.9 Physical Exam Const alert, oriented x3, no apparent distress and healthy appearing General Appearance: cooperative GI normal to inspection, nondistended, normoactive bowel sounds, soft to palpation, non-tender and non-distended Percussion: normal to percussion Rectal Exam: deferred Assessment & Plan Assessment/Plan (1) Dysphagia: (2) Crohn's disease: QUALIFIERS: Gastrointestinal tract location: small and large intestine Digestive disease complication type: without complication Qualified Code(s): K50.80 - Crohn's disease of both small and large intestine without complications PLAN: Assessment and Plan Assessment and Plan (1) Crohn's disease: Status: Acute Qualifiers: Gastrointestinal tract location: small and large intestine Digestive disease complication type: without complication Qualified Code(s): K50.80 - Crohn's disease of both small and large intestine without complications Plan: 32-year-old with past medical history of Crohn's disease involving the small intestines but typically the ileum and the right side of the colon including the cecum, ileocecal valve and ascending colon that was seen previously on colonoscopy. She had a CT enterography that also showed some possible narrowing consistent with inflammatory Crohn's disease of the terminal ileum. She does not have any extraintestinal manifestations of Crohn's disease including no findings, pancreatic findings, liver findings, skin findings. She is not having any night sweats or fatigue. She does not know if she has had a updated hepatitis B or Tuberculosis screening. She takes Remicade every 8 weeks at a 5 mg/kg dose and she takes Pentasa 4 times a day at a dose of 500 mg. She notices that she starts getting symptoms. Therefore we switched her to Stelara. She underwent an upper endoscopy and was discovered to have peptic ulcer disease. Biopsies were negative for H. pylori, intestinal metaplasia dysplasia or cancer. We gave her Carafate therapy. She has been on that for approximately 8 weeks. She likes to take that because she is able to have more solid stools with that. She underwent a colonoscopy and was covered to have terminal ileitis with some aphthous ulcerations. Since being instituted on Stelara therapy she is having more formed stools with 1-2 bowel movements a day with occasional blood with constipation. She is having no tenesmus, cramping, abdominal pain, bloating or indigestion. She is also eliminated pork from her diet. She thinks this has had a great effect on her. She will continue current medication regimen and follow-up in 6 months we will get stool studies and biochemical workup to confirm Stelara levels and antibody levels. She was doing very well from a GI standpoint regarding her Crohn's disease. She was having minimal abdominal pain, cramping, nausea or diarrhea. She does get occasional loose stools with eating which is to be expected in a patient that is status post cholecystectomy. She is having some intermittent bleeding per rectum which is painless. I think it is likely hemorrhoidal bleeding. Her inflammatory markers came back elevated at 14.64 CRP and 35 for her ESR. Also her fecal calprotectin was elevated and her Stelara levels have been continually subtherapeutic ranging between 1 and 1.9. We will get a CT scan abdomen pelvis with oral and IV contrast and transition her to Entyvio. (2) Dysphagia: Status: Acute Plan: She is also having intermittent esophageal dysphagia. She does have gastroesophageal reflux disease and underwent an upper endoscopy which had shown erosive esophagitis along with an esophageal ring at the distal esophagus. She did not undergo dilation at that time. I thought she do fine with medical therapy. However she says she does not want to take medical therapy and low she will undergo esophageal dilation. She will undergo an upper endoscopy. She was explained alternatives, risk, benefits include not withstanding bleeding, infection, sepsis, perforation, need for emergent urgent . She have an ASA of 3. ]
--- NOTE | 2025-03-22 11:46 | PCM.PRE.AN2 ---
ASA Classification* ASA Classification ASA Classification: 2 Assessment & Plan Anesthesia* Anesthesia Assessment Anesthesia Assessment: Discussed sedation and/or anesthesia options, risks, benefits, and alternatives with patient/parents/legal guardian/POA. Questions invited. The patient/parents/legal guardian/POA seems to understand and agrees to proceed with anesthesia plan. Reviewed the physical assessment, medical history, allergy history and patient home medications list prior to surgery/procedure/anesthetic and documented any changes. Performed airway and anesthesia risk assessments. Anesthesia Type Anesthesia Type: MAC History Source History Obtained from:: Patient and Chart Anesthesia Focused Assessment* Temperature: 97.1 F Pulse Rate: 70 Blood Pressure: 111/78 Respiratory Rate: 18 Pulse Ox: 100 Oxygen Delivery Method: Room Air Airway Assessment Mouth opens: >3 cm Mallampati Score: I Teeth Condition: Missing (Patient is missing a right upper molar. Rest the teeth are tight.) Neck Range of motion (ROM): Limited ROM (Slight Decrease) Labs Anesthesia Preop lab: CBC WBC, (4.4-11.0) 9.2 K/mm3 12/21/24, 15: RBC, (4.2-5.4) 4.05 M/mm3 L 12/21/24, 15:14 Hgb, (12.0-15.0) 12.0 g/dL 12/21/24, 15:14 Hct, (37-47) 37.0 % 12/21/24, 15:14 Plt Count, (150-450) 314 K/mm3 12/21/24, 15:14 CHEMISTRY Potassium, (3.3-5.1) 4.2 mmol/L 12/21/24, 15:14 Sodium, (133-145) 139 mmol/L 12/21/24, 15:14 BUN, (4-19) 11 mg/dL 12/21/24, 15:14 Creatinine, (0.70-1.20) 0.88 mg/dL 12/21/24, 15: Glucose, (70-99) 99 mg/dL 12/21/24, 15:14 POC Glucose, (70-110) 87 mg/dL 02/10/17, 12:50 TSH, (0.300-4.200) 1.590 uIU/mL 12/21/24, 15:14 COAG PT, (11.7-14.9) 14.1 SECONDS 05/05/19, 10:59 HCG, Quant, (<9 non-preg) 205 mIU/mL H 02/15/14, 00:10 Urine Test Negative Negative 03/28/24, 17:29 Pre-Assessment Diagnosis/Proposed Procedure Planned Operative Procedure(s): EGD Anesthesia History Anesthesia History - salicylic acid blender: Anesthesia History - salicylic acid blender Hx Hospitalization No 03/21/25 09:25 Any Problems With Anesthesia No 03/21/25 09:25 Cholinesterase deficiency No 03/21/25 09:25 You/Your Family Experience No 03/21/25 09:25 fever (hyperthermia) with Relationship Recent Exposure to Contagious No 03/22/25 11:19 Disease Does patient have nerve No 03/21/25 09:25 stimulator Patient instructed to have device shut off --Does patient have Pacemaker No 03/22/25 11:19 or ICD? When Was Last Pacemaker Check QUESTION #4 FULL TEXT: You/Your Family Experience fever (hyperthermia) with Anesthesia Last Oral Intake Last Oral intake: Last Oral Intake NPO since 22:00 03/22/25 11:19 Meds taken in AM with sips of No 03/22/25 11:19 water? Meds patient instructed to take am of surgery PONV PONV - salicylic acid blender: PONV - salicylic acid blender Female Yes 03/21/25 09:25 HX of Motion Sickness No 03/21/25 09:25 HX of N/V After Surgery No 03/21/25 09:25 Non-Smoker Yes 03/21/25 09:25 Duration of Surgery greater No 03/21/25 09:25 than 60 minutes Number of Risk Factors 2 03/21/25 09:25 PONV Score Moderate Risk 03/21/25 09:25 Height & Weight Height & Weight: Anesthesia: Height & Weight Height 5 ft 2 in 03/22/25 11:19 Weight: 89 kg 03/22/25 11:19 Body Mass Index (BMI) 35.9 03/22/25 11:19 Respiratory Assessment Respiratory Assessment - salicylic acid blender: Respiratory Tract Infection Hx - salicylic acid blender Hx Respiratory Tract Infection No 03/21/25 09:25 STOP Sleep Apnea STOP Sleep Apnea - salicylic acid blender: STOP Sleep Apnea - salicylic acid blender Hx Hypertension No 03/21/25 09:25 Hx Sleep Apnea No 03/21/25 09:25 CPAP BIPAP Do you snore loudly (louder No 03/21/25 09:25 than talking or can be heard Do you often feel tired/ No 03/21/25 09:25 fatigued/ sleepy during daytime? Has anyone observed you stop No 03/21/25 09:25 breathing during sleep? STOP Results Negative 03/21/25 09:25 QUESTION #5 FULL TEXT : Do you snore loudly (louder than talking or can be heard through closed doors)? 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 Specify any problems Hx of Preganancy in last 3 N/A 03/21/25 09:25 Months Nurse Filling Out Transfusion NBUCHER 03/21/25 09:25 & Questions: Date: 03/21/25 03/21/25 09:25 Time: 03/21/25 09:25 Patient unable to answer at this time (ie. confused, unrespo /Reproduction History /Reproductive History - salicylic acid blender: /Reproductive Hx- salicylic acid blender Hx Now Gestational Age (in weeks): EDC: Hx Hx Para Hx Section SAB No 03/21/25 09:25 Does the father of the baby or his family experience fever w Father of the baby Malignant Hypertension history comment Active Medications Active Medications: Current Medications Generic Name Dose Route Start Last Admin Trade Name Freq PRN Reason Stop Dose Admin Lactated Ringer's 1,000 mls @ 15 mls/hr 03/22/25 11:00 03/22/25 11:29 IV 15 mls/hr .Q48H VITA Administration PFSH Medical History Easy bruising History of ulceration Heartburn Gastric reflux Periumbilical hernia IFG (impaired fasting glucose) Anemia History of Crohn's disease Non-smoker Hx of fracture of leg Encounter for screening for COVID-19 Acute conjunctivitis, right eye Acute sinusitis, unspecified Asthma Home Medications Medication Instructions Recorded Last Taken Type cholecalciferol (vitamin D3) 10 10 mcg PO DAILY 12/22/20 03/21/25 History mcg (400 unit) capsule (Vitamin D3) albuterol sulfate 90 mcg/actuation 1 - 2 inh inhalation PRN PRN ASTHMA 01/08/22 Unknown History aerosol inhaler dicyclomine 10 mg capsule 10 mg PO PRN PRN ABD PAIN 01/08/22 Unknown History ferrous sulfate 142 mg (45 mg 45 mg PO BID 01/08/22 03/19/25 History iron) tablet,extended release (Slow Release Iron) lansoprazole 30 mg capsule,delayed 30 mg PO DAILY PRN GERD 02/28/24 Unknown History release amitriptyline 10 mg tablet 10 mg PO QHS #30 tabs 12/25/24 03/21/25 Rx vedolizumab 300 mg intravenous 300 mg .Route .Q8W 02/23/25 02/26/25 History solution (Entyvio) Allergy/AdvReac Type Severity Reaction Status Date / Time morphine AdvReac Vomiting Verified 03/22/25 11:05 pseudoephedrine HCl (From AdvReac Vomiting Verified 03/22/25 11:05 Sudafed) Surgical History History of hernia surgery History of tubal ligation History of ear surgery Hx laparoscopic cholecystectomy Social History Smoking Status: Never smoker alcohol intake: never Review of Systems (Anesthesia) ROS Narrative System reviewed and no additional complaints, except as documented. Physical Exam Resp clear to auscultation bilaterally
--- NOTE | 2025-03-22 12:00 | EGD_PTH ---
PATIENT: SHOSHANA GUILLEN LOC: EN U#:[id number] AGE/SX: 34/F ROOM: RE03/22/[address]: Dr. Rey Alcaraz DO : 1990 BED: DIS: 03/22/2025 SPEC #: [id number] RECD: 03/22/25 13:17 STATUS: GORDON RECurry #: [id number] SAMANTA: 03/22/25 12:[address]: Rey Alcaraz DEPT: SURGICAL PATHOLOGY RECD BY: Db Neil ENTERED: 03/22/25 13:39 SP TYPE: EGD BIOPSY OT DR: Dr. Drake Whiting DO Tissues: A - Esophagus, NOS B - Duodenum, NOS C - Gastric mucous membrane Procedures: Immunohistochemical Stains Surgery Specimen Level IV HEADER OPERATION: EGD with biopsy PRE-OP DIAGNOSIS: Dysphagia TISSUE SUBMITTED: A- Random esophagus biopsy, B- Duodenum biopsy, C- Gastric body biopsy MICROSCOPIC DIAGNOSIS A. Esophagus, random, biopsies: - Benign squamous epithelium without active inflammation B. Small intestine, duodenum: - Benign duodenal mucosa without active inflammation or architectural distortion - Two pieces of gastric fundic mucosa with slight chronic inflammation C. Stomach, gastric body: * Oxyntic mucosa with chronic active inflammation * An immunohistochemical stain for Helicobacter pylori is positive MICROSCOPIC DESCRIPTION Slides are reviewed. All matched controls reacted appropriately. These tests were developed and their performance characteristics determined by [facility]. They may not have been cleared or approved by the [place]. Food and Drug Administration. The FDA has determined that such clearance or approval is not necessary. The above immunohistochemical markers are viewed by the Pathologist. GROSS DESCRIPTION A. Received in fixative is one container labeled with the patient's name and designated "Random esophagus biopsy." The specimen consists of multiple irregular fragments of cortes tissue that in aggregate measure 1.3 x 0.7 x 0.1 cm. The specimen is totally submitted in one cassette. B. Received in fixative is one container labeled with the patient's name and designated "Duodenum biopsy." The specimen consists of multiple irregular fragments of cortes tissue that in aggregate measure 1.2 x 0.3 x 0.1 cm. The specimen is totally submitted in one cassette. C. Received in fixative is one container labeled with the patient's name and designated "Gastric body biopsy." The specimen consists of four irregular fragments of cortes tissue that measure <0.1 to 0.8 cm. The 2 smallest fragments are unlikely to survive processing. The specimen is totally submitted in one cassette. [place] 03/22/2025 CPT:65289n7,29573
--- NOTE | 2025-03-22 13:02 | OP.EGD_ITS ---
Patient Name: Mary Ruiz Procedure Date: 03/22/2025 12:28 PM Date of : 1990 Age: 34 Procedure: Upper GI endoscopy Indications: Dysphagia Providers: Rey Alcaraz DO Referring MD: Drake Whiting Medicines: Monitored Anesthesia Care Patient Profile: This is a 34 year old female. Refer to note in patient chart for documentation of history and physical. Patient has symptoms of chronic dysphagia, dysphagia with both liquids and solids and chronic nausea. Complications: No immediate complications. Procedure: Pre-Anesthesia Assessment: - Prior to the procedure, a History and Physical was performed, and patient medications and allergies were reviewed. The patient is competent. The risks and benefits of the procedure and the sedation options and risks were discussed with the patient. All questions were answered and informed consent was obtained. Patient identification and proposed procedure were verified by the physician in the pre-procedure area. Mental Status Examination: alert and oriented. Airway Examination: normal oropharyngeal airway and neck mobility. Respiratory Examination: clear to auscultation. CV Examination: normal. Prophylactic Antibiotics: The patient does not require prophylactic antibiotics. Prior Anticoagulants: The patient has taken no anticoagulant or antiplatelet agents except for NSAID medication. ASA Grade Assessment: II - A patient with mild systemic disease. After reviewing the risks and benefits, the patient was deemed in satisfactory condition to undergo the procedure. The anesthesia plan was to use monitored anesthesia care (MAC). Immediately prior to administration of medications, the patient was re-assessed for adequacy to receive sedatives. The heart rate, respiratory rate, oxygen saturations, blood pressure, adequacy of pulmonary ventilation, and response to care were monitored throughout the procedure. The physical status of the patient was re-assessed after the procedure. After obtaining informed consent, the endoscope was passed under direct vision. Throughout the procedure, the patient's blood pressure, pulse, and oxygen saturations were monitored continuously. The Endoscope was introduced through the mouth, and advanced to the second part of duodenum. The upper GI endoscopy was accomplished without difficulty. The patient tolerated the procedure well. Scope In: 12:40:49 PM Scope Out: 12:47:17 PM Total Procedure Duration Time 0 hours 6 minutes 28 seconds Findings: Abnormal motility was noted in the esophagus. The cricopharyngeus was normal. There are extra peristaltic waves in the esophageal body. The distal esophagus/lower esophageal sphincter is spastic, but gives up passage to the endoscope. Secondary peristaltic waves are noted. Biopsies were obtained from the proximal and distal esophagus with cold forceps for histology of suspected eosinophilic esophagitis. No gross lesions were noted in the entire examined stomach. Biopsies were taken with a cold forceps for histology. Several biopsies were obtained with cold forceps for histology in the gastric body. Verification of patient identification for the specimen was done. Estimated blood loss was minimal. No gross lesions were noted in the entire examined duodenum. Biopsies were taken with a cold forceps for histology. Verification of patient identification for the specimen was done. Estimated blood loss was minimal. Impression: - Abnormal esophageal motility. - No gross lesions in the entire stomach. Biopsied. - No gross lesions in the entire examined duodenum. Biopsied. - Biopsies were taken with a cold forceps for evaluation of eosinophilic esophagitis. - Several biopsies were obtained in the gastric body. Recommendation: - Discharge patient to home. - Resume previous diet. - Continue present medications. - Await pathology results. Procedure Code(s): --- Professional --- 39380, Esophagogastroduodenoscopy, flexible, transoral; with biopsy, single or multiple CPT copyright 2021 [employer]. All rights reserved. The codes documented in this report are preliminary and upon gasoline engine assembler review may be revised to meet current compliance requirements. Rey Alcaraz DO 03/22/2025 1:02:12 PM This report has been signed electronically. Number of Addenda: 0 Note Initiated On: 03/22/2025 12:28 PM
--- NOTE | 2025-03-22 13:02 | OP.PROVAT_ITS ---
03/22/2025 Drake Whiting [address] [place] [address] Re : Upper GI endoscopy procedure for Mary Ruiz Dear Dr. Whiting This procedure was performed on March. My impressions and recommendations are as follows: Impressions : - Abnormal esophageal motility. - No gross lesions in the entire stomach. Biopsied. - No gross lesions in the entire examined duodenum. Biopsied. - Biopsies were taken with a cold forceps for evaluation of eosinophilic esophagitis. - Several biopsies were obtained in the gastric body. Recommendations : - Discharge patient to home. - Resume previous diet. - Continue present medications. - Await pathology results. My findings are described in the full procedure note, which is enclosed. If I can be of further assistance, please feel free to contact me at . Sincerely, Rey Alcaraz, 03/22/2025 1:02:12 PM This report has been signed electronically.
--- NOTE | 2025-03-22 13:15 | PCM.POST.ANE ---
Anesthesia: Postop Eval I Current Vital Signs Temperature: 97.2 F Pulse Rate: 92 Blood Pressure: 113/81 Respiratory Rate: 18 Pulse Ox: 96 Oxygen Delivery Method: Room Air Assessment Airway patent: Yes Spontaneous unlabored respirations: Yes Mental status: Awake and Calm nausea: No Vomiting: No Anesthesia Complication: No Fluid Hydration Crystalloid volume administer (ml): 400 Total IV fluid infused: 400 Progress Note Anesthesia document: Postop Eval 1 completed: Yes
--- NOTE | 2025-03-22 14:32 | PCM.POSTANE2 ---
Anesthesia Postop Eval I Sum Postop Eval Completion status Anesthesia document: Postop Eval 1 completed: Yes Anesthesia Postop Eval I Summary Anesthesia Postop Eval I Summary: Anesthesia Postop Eval I: Assessment Summary Airway patent Yes 03/22/25 13:16 [email or web address] Spontaneous unlabored Yes 03/22/25 13:16 [email or web address] respirations Mental status Awake,Calm 03/22/25 13:16 [email or web address] nausea No 03/22/25 13:16 [email or web address] Vomiting No 03/22/25 13:16 [email or web address] Anesthesia Postop Eval I: Fluid Summary Crystalloid volume administer 400 03/22/25 13:16 [email or web address] (ml) Colloids volume administered ( ml) Blood Product volume administered (ml) Total IV fluid infused 400 03/22/25 13:16 [email or web address] Anesthesia Postop Eval I: Summary Notes Anesthesia Complication No 03/22/25 13:16 [email or web address] Anesthesia Complication Comment: Post-operative progress note Anesthesia: Postop Eval II Evaluation Mental status: Awake and Calm Pain Level: 0 nausea: No Vomiting: No Complications Anesthesia Complication: No
== END 2025-03-22 13:36 | disposition home or self-care (01) ==
LOC: EN 10:20 → AC 10:37
PROVIDERS: PCP Student in an Organized Health Care Education/Training Program; Referring Provider Student in an Organized Health Care Education/Training Program; Visit Provider Internal Medicine Gastroenterology
DX: K50.80 Crohn's disease of both small and large intestine without complications (principal); K21.00 Gastro-esophageal reflux disease with esophagitis, without bleeding; J45.909 Unspecified asthma, uncomplicated; Z79.899 Other long term (current) drug therapy; Z90.49 Acquired absence of other specified parts of digestive tract; K29.50 Unspecified chronic gastritis without bleeding; K29.80 Duodenitis without bleeding
CPT/HCPCS: 43239; 88305; 88342; J2405

== ENCOUNTER 2025-04-06 08:58 | Day surgery (SDC) | payer MEDICAID, SELFPAY ==
[2025-04-06] MEDS: Lidocaine Jelly 2% 20 ML Syringe (URO-JET) 1 APPLIC (09:10)
--- OUTSIDE RECORDS SUMMARY | 2025-04-06 09:20 | XMS RPT_ITS | CCD ---
Author Organization [facility] Care Team Providers Care Linux Admin Engineer Name Role Phone JERI RAMESH Unavailable Unavailable DRAKE WHITING Unavailable Unavailable JERI RAMESH Unavailable Unavailable DRAKE WHITING Unavailable Unavailable JERI RAMESH Unavailable Unavailable DRAKE WHITING Unavailable Unavailable Drake Whiting DO Primary Care Provider Kath Sosa MD Unavailable Drake Whiting DO Primary Care Provider Kath Sosa MD Unavailable Kath Sosa MD Unavailable Drake Whiting DO Primary Care Provider Drake Whiting DO Primary Care Provider Kath Sosa MD Unavailable Dr. Drake Whiting Primary Care Provider Dr. Drake Whiting Referring Provider FriendDr. Le Attending Provider Dr. Drake Whiting Primary Care Provider Dr. Drake Whiting Referring Provider Dr. Rey Alcaraz Attending Provider Dr. eRy Alcaraz Other Provider Drake Whiting DO Primary Care Provider Joaquin WARP PICKER.Magdalena LAZO Unavailable Dayanara AARON.Toñito LAZO Unavailable Magdalena Nuñez APRN.CNP Unavailable Henok CLINE, Dr. Juan Primary Care Provider Henok CLINE, Dr. Juan Referring Provider Cristy Miranda Attending Provider Unavaileugenio Alcaraz DO, Dr. Le Attending Provider Friend DO, Dr. Le Referring Provider Henok CLINE, Dr. Juan Primary Care Provider [phone] Henok CLINE, Dr. Juan Referring Provider Cristy Miranda Attending Provider Unavaileugenio Ramirez APRN.Danna LAZO Unavailable Henok CLINE, Dr. Juan Primary Care Provider Friend DO, Dr. Le Attending Provider Friend DO, Dr. Le Referring Provider Henok CLINE, Dr. Juan Primary Care Provider [phone] Henok CLINE, Dr. Juan Referring Provider [phone] Friend DO, Dr. Le Attending Provider Sheila [facility] Unavailable TOÑITO JOHNSON Attending Unavailable SELF Referring Unavailable WHITING, DRAKE L Primary Care Unavailable TOÑITO JOHNSON Referring Unavailable WHITINGDRAKE Primary Care Unavailable WHITING, DRAKE Espinoza Primary Care Unavailable RAVINDER MIRANDA Attending Unavailable RAVINDER MIRANDA Referring Unavailable WHITING, DRAKE L Primary Care Unavailable WHITING, DRAKE L Primary Care Unavailable LEXIE BYERS Attending Unavailable ASHLEY, DANNA ROBEL Attending Unavailable WHITING, DRAKE L Primary Care Unavailable ASHLEY, DANNA ROBEL Referring Unavailable WHITING, DRAKE L Primary Care Unavailable ANNIA REDD Attending Unavail able WHITING, DRAKE L Primary Care Unavailable WHITING, DRAKE L Primary Care Unavailable DEYVI WILLOUGHBY Referring Unavailable WHITING, DRAKE Espinoza Primary Care Unavailable Henok CLINE, Dr. Juan Primary Care Physician Friend , Dr. Le Attending Physician Friend DO, Dr. Le Referring Provider Henok CLINE, Dr. Juan Referring Provider Henok CLINE, Dr. Juan Primary Care Physician Friend DO, Dr. Le Attending Physician Friend DO, Dr. Le Referring Provider Henok CLINE, Dr. Juan Referring Provider [phone] Whiting, Drake Primary Care Unavailable Whiting, Drake Referring Unavailable Bodager, Cristy Attending Unavailable Friend, Rey Attending Unavailable Whiting, Drake Primary Care Unavailable Whiting, Drake Referring Unavailable Friend, Rey Referring Unavailable Friend, Rey Attending Unavailable Whiting, Drake Primary Care Unavailable Friend, Rey Referring Unavailable Friend, Rey Attending Unavailable Whiting, Drake Primary Care Unavailable Friend, Rey Attending Unavailable Friend, Rey Referring Unavailable Whiting, Drake Primary Care Unavailable Friend, Rey Attending Unavailable Friend, Rey Referring Unavailable Whiting, Drake Primary Care Unavailable Whiting, Drake Primary Care Unavailable Roberto Carlos Tirado Attending Unavailable Friend, Rey Referring Unavailable Friend, Rey Attending Unavailable Whiting, Drake Primary Care Unavailable Whiting, Drake Referring Unavailable Friend, Rey Attending Unavailable Whiting, Drake Primary Care Unavailable Whiting, Drake Referring Unavailable Friend, Rey Attending Unavailable Whiting, Drake Primary Care Unavailable Whiting, Drake Primary Care Unavailable Whiting, Drake Referring Unavailable Friend, Rey Attending Unavailable Whiting, Drake Primary Care Unavailable Whiting, Drake Referring Unavailable Friend, Rey Attending Unavailable Friend, Rey Referring Unavailable Friend, Rey Attending Unavailable Whiting, Drake Primary Care Unavailable Friend, Rey Referring Unavailable Whiting, Drake Primary Care Unavailable Friend, Rey Attending Unavailable Friend, Rey Referring Unavailable Whiting, Drake Primary Care Unavailable Friend, Rey Attending Unavailable Whiting, Drake Primary Care Unavailable Whiting, Drake Referring Unavailable Bodager, Cristy Attending Unavailable Whiting, Drake Referring Unavailable Friend, Rey Attending Unavailable Whiting, Drake Primary Care Unavailable Drake Whiting Primary Care Unavailable Drake Whiting Referring Unavailable Friend, Rey Attending Unavailable Drake Whiting Primary Care Unavailable Drake Whiting Referring Unavailable Cristy Miranda Attending Unavailable Drake Whiting Primary Care Unavailable Drake Whiting Referring Unavailable FriendRey Consulting Unavailable FriendRey Attending Unavailable Drake Whiting Primary Care Unavailable Drake Whiting Referring Unavailable Friend, Rey Attending Unavailable Allergies Allergy Classification Reported Allergen(s) Allergy Type Date of Onset Reaction(s) Facility (20 sources) Morphine; Translations: [MORPHINE] Drug Allergy 1 Rash, GI Upset [facility] (20 sources) Pseudoephedrine; Translations: [PSEUDOEPHEDRINE HCL] Drug Allergy 5 Intolerance [facility] Work Phone: (1 source) Morphine Drug Allergy 5 [facility] (1 source) Pseudoephedrine Drug Allergy 5 [facility] Medications Current Medications Medication Drug Class(es) Dates Sig (Normalized) Sig (Original) albuterol 0.83 mg/ml inhalation solution (20 sources) beta2-Adrenergic Agonist Start: 06-01-2024 End: 06-02-2024 albuterol (PROVENTIL) 2.5 mg /3 mL (0.083 %) nebulizer solution Indications: URI, acute , Persistent cough Use 3 mL via nebulizer every 4 hours as needed for wheezing/shortness of breath. 150 mL 1 06/02/2024 Active Start: 05-30-2024 take 2 puff(s) by in halation every four hours as needed for wheezing albuterol HFA (PROVENTIL HFA, VENTOLIN HFA) 90 mcg/actuation inhaler Indications: URI, acute Inhale 2 Puffs as instructed every 4 hours as needed for wheezing/shortness of breath. 8 g 05/30/2024 Active Start: 05-05-2023 End: 01-05-2025 take 2 puff(s) by inhalation every six hours as needed albuterol HFA (PROAIR HFA) 90 mcg/actuation inhaler Inhale 2 Puffs as instructed every 6 hours as needed. 8.5 g 05/05/2023 01/05/2025 Discontinued Start: 01-08-2022 Start: 01-08-2022 Albuterol Sulf ate Active 1 - 2 INH INHALATION NEEDED January 07, 2022 11:00pm Start: 04-30-2021 End: 01-05-2025 take 2 puff(s) by inhalation every two hours as needed for wheezing albuterol HFA (PROVENTIL HFA, VENTOLIN HFA) 90 mcg/actuation inhaler Inhale 2 Puffs as instructed every 2 hours as needed for wheezing/shortness of breath. 8 g 04/30/2021 01/05/2025 Discontinued Comment on above: Inhale 2 Puffs as in structed every 2 hours as needed for wheezing/shortness of breath. amitriptyline hydrochloride 10 mg oral tablet (4 sources) Tricyclic Antidepressant Start: take 1 tablet by mouth at bedtime benzonatate 100 mg oral capsule (20 sources) Non-narcotic Antitussive Start: take 1 capsule by mouth three times daily as needed benzonatate (TESSALON PERLE) 100 mg capsule Indications: URI, acute , Persistent cough Take 1 capsule by mouth three times a day as needed. 30 capsule 06/01/2024 Active Start: 05-05-2023 End: 02-10-2024 take 1 capsule by mouth every eight hours as needed benzonatate (TESSALON PERLE) 100 mg capsule Take 1 capsule by mouth three times a day as needed for cough. 21 capsule 09/25/2023 02/10/2024 Discontinued Start: 10-02-2021 End: 01-08-2022 benzonatate (TESSALON PERLE) 100 mg capsule Take 1-2 capsules tid prn, no more than 6 in 24 hours. 30 capsule 0 11/24/2021 01/08/2022 Discontinued Comment on above: Take 1 capsule by mo [facility] three times daily as needed for cough. Take 1-2 capsules ti d prn, no more than 6 in 24 hours. cephalexin 500 mg oral capsule (1 source) Cephalosporin Antibacterial Start: 11-22-19 End: 11-29-19 take 1 capsule by mouth four times daily cephALEXin (KEFLEX) 500 mg capsule Indications: Acute pain of left knee Take 1 capsule by mouth four times daily for 7 days. 28 capsule 11/21/2024 11/28/2024 Active cholecalciferol 0.05 mg oral capsule (20 sources) Vitamin D Start: 01-16-20 End: 01-16-20 take 1 capsule by mouth once daily Cholecalciferol, Vitamin D3, (VITAMIN D-3) 50 mcg (2,000 unit) cap Take 1 capsule by mouth once daily. 30 capsule 11 01/15/2025 Active Start: 12-30-2020 End: 02-10-2024 take 1 capsule by mouth once daily Cholecalciferol, Vitamin D3, 125 mcg (5,000 unit) cap Take 1 capsule by mouth once daily. 90 capsule 3 12/23/2022 02/10/2024 Discontinued Start: 12-22-2020 End: 01-05-2025 take 1 capsule by mouth once daily cholecalciferol, vitamin D3, 10 mcg (400 unit) cap Take 400 Units by mouth once daily. 12/22/2020 01/05/2025 Discontinued Start: 12-22-2020 take 1 capsule by pr ut once daily Start: 12-22-2020 take 1 capsule by mo uth once daily Cholecalciferol (Vitamin D3) (Vitamin D3) 10 mcg (400 unit) Capsule Active 10 MCG PO DAILY December 21, 2020 11:00pm Comment on above: Take 1 capsule by mo ut once daily. codeine phosphate 2 mg/ml / guaiFENesin 20 mg/ml oral solution (2 sources) Opioid Agonist Start: 06-01-19 End: 06-06-19 take 5 mL by mouth four times daily as needed codeine-guaiFENes in (ROBITUSSIN AC) 10-100 mg/5 mL syrup Indications: URI, acute , Persistent cough Take 5 mL by mouth four times a day as needed for up to 5 days. 100 mL 06/01/2024 06/06/2024 Active diclofenac sodium 0.01 mg/mg topical gel (1 source) Nonsteroidal Anti-inflammatory Drug Start: 11-22-19 End: 11-29-19 apply 2 g topically three times daily as needed diclofenac (VOLTAREN) 1 % topical gel Indications: Acute pain of left knee Apply 2 g to affected area three times a day as needed for up to 7 days. 42 g 11/21/2024 11/28/2024 Active dicyclomine hydrochloride 10 mg oral capsule (20 sources) Anticholinergic Start: 12-04-19 End: 10-27-19 Start: 09-01-2021 End: 12-03-2021 take 1 tablet by mouth twice daily dicyclomine (BENTYL) 20 mg tablet Indications: Black stool , Generalized abdominal pain Take 1 tablet by mouth twice daily. 60 tablet 2 09/01/2021 12/03/2021 Discontinued (Course of therapy completed) Comment on above: Take 1 tablet by [facility] twice daily. Take 1 capsule by [facility] three times daily as needed (for abdominal pain). 24 hr ferrous sulfate 142 mg extended release oral tablet (20 sources) Start: 01-08-2022 take 1 tablet by mouth twice daily Ferrous Sulfate (Slow Release Iron) 142 mg (45 mg iron) tablet extended release Active 45 mg PO TWICE A DAY January 08, 2022 12:00am Start: 01-08-2022 take 1 tablet by mouth twice d aily Ferrous Sulfate (Slow Release Iron) 142 mg (45 mg iron) tablet extended release Active 45 MG PO TWICE A DAY January 07, 2022 11:00pm Start: 07-11-2021 End: 01-05-2025 take 1 tablet by mouth twice daily Start: 05-26-2021 End: 08-24-2021 take 1 tablet by mouth twice daily at mealtime ferrous sulfate (SLOW FE) 140 mg (45 mg iron) TbER Take 1 tablet by mouth twice daily with meals. 180 tablet 2 05/26/2021 08/24/2021 Comment on above: Take 1 tablet by [facility] twice daily with meals. Take 45 mg by mouth twice daily with meals. 30 actuat fluticasone furoate 0.05 mg/actuat dry powder inhaler (20 sources) Corticosteroid Start: 10-14-2022 Fluticasone Furoate Active INHALATION October 14, 2022 12:00am Start: 05-23-2021 End: 02-10-2024 take 2 spray(s) by mouth once daily fluticasone (FLONASE) 50 mcg/actuation nasal spray Indications: Nasal congestion Use 2 Sprays in each nostril once daily. Rinse mouth after use. 1 Each 1 05/23/2021 02/10/2024 Discontinued Comment on above: Use 2 Sprays in each nostril once daily. Rinse mouth after use. lansoprazole 30 mg delayed release oral capsule (20 sources) Proton Pump Inhibitor Start: 04-23-2023 End: 02-28-2024 take 1 capsule by mouth once daily as needed for gastroesophageal reflux disease Start: 04-16-2023 End: 04-23-2023 take 1 tablet by mouth once daily Lansoprazole (Prevacid Solutab) 30 mg tablet,disintegrat, delay rel Discontinued 30 mg PO DAILY 30 April 20, 2023 3:42pm April 23, 2023 3:58pm 1 ml medroxyPROGESTERone acetate 150 mg/ml injection (20 sources) Progestin Start: 10-14-2022 inject 150 mg by intramuscular injection every three months Medroxyprogesterone (Depo-Provera) 150 mg/mL suspension Active 150 MG IM every 3 months October 14, 2022 12:00am Start: 05-08-2021 End: 12-23-2022 medroxyPROGESTERone (DEPO-TN OVERA) 150 mg/mL Indications: Encounter for surveillance of other contraceptive inject 1 milliliter intramuscularly for 1 dose 1 mL 3 05/08/2021 12/23/2022 Discontinued Start: 02-07-2021 End: 01-09-2022 medroxyPROGESTERone 150 mg i njection (DEPO-PROVERA) Comment on above: inject 1 milliliter intramuscularly for 1 dose metroNIDAZOLE 500 mg oral tablet (2 sources) Nitroimidazole Antimicrobial Start: End: take 1 tablet by mouth twice daily metroNIDAZOLE (FLAGYL) 500 mg tablet Indications: Bacterial vaginosis Take 1 tablet by mouth two times a day for 7 days. 14 tablet 02/11/2024 02/18/2024 Active Nebulizer and Compressor For Neb (8 sources) Start: Nebulizer and Compressor For Neb Indications: URI, acute , Persistent cough 1 Each as needed. 1 Each 06/01/2024 Active nitrofurantoin, macrocrystals 25 mg / nitrofurantoin, monohydrate 75 mg oral capsule (2 sources) Nitrofuran Antibacterial Start: End: take 1 capsule by mouth twice daily nitrofurantoin monohydrate and macrocrystal (MACROBID) 100 mg capsule Indications: Urinary frequency Take 1 capsule by mouth two times a day for 5 days. 10 capsule 01/02/2025 01/07/2025 Active predniSONE 10 mg oral tablet (7 sources) Start: End: predniSONE (DELTASONE) 10 mg tablet Indications: URI, acute Take 4 tabs daily for 3 days, then 2 tabs daily for 3 days, then 1 tab daily for 3 days with food. 21 tablet 05/30/2024 06/08/2024 Active Start: 02-15-2024 End: 02-20-2024 take 2 tablets by mouth once daily predniSONE (DELTASONE) 20 mg tablet Indications: Sore throat , Left ear pain Take 2 tablets by mouth once daily for 5 days. 10 tablet 02/15/2024 02/20/2024 Active Start: 10-02-2021 End: 11-19-2021 predniSONE (DELTASONE) 10 mg tablet Take 4 tabs daily for 3 days, then 2 tabs daily for 3 days, then 1 tab daily for 3 days with food. 21 tablet 0 10/02/2021 11/19/2021 Discontinued Comment on above: Take 4 tabs daily fo r 3 days, then 2 tabs daily for 3 days, then 1 tab daily for 3 days with food. vedolizumab 300 mg injection (4 sources) Integrin Receptor Antagonist Start: 02-23-2025 Start: 01-05-2025 inject 300 mg intravenously on ce vedolizumab (ENTYVIO) 300 mg injection Indications: Crohn's disease with complication, unspecified gastrointestinal tract location (HCC) Inject 300 mg intravenously one time only for [address] Alcaraz's office administers and manages for her crohns, tapering up dosing and intermittent infusions 01/05/2025 Active vitamin b12 1 mg oral tablet (1 source) Vitamin B12 Start: 01-15-2025 take 1 tablet by mouth once daily cyanocobalamin (VITAMIN B-12) 1,000 mcg tab Take 1 tablet by mouth once daily. 30 tablet 11 01/15/2025 Active Completed/Discontinued Medications Medication Drug Class(es) Dates Sig (Normalized) Sig (Original) acetaminophen 325 mg / HYDROcodone bitartrate 5 mg oral tablet (20 sources) Opioid Agonist Start: 04-16-2023 End: 06-01-2023 Hydrocodone-Acetami nophen 5-325 mg tablet Discontinued 1 {tbl} PO EVERY 4 HOURS NEEDED as needed for Pain 10 2 0 April 16, 2023 June 01, 2023 1:46pm Abdominal pain Unspecified abdominal pain Start: 04-16-2023 End: 06-01-2023 take 1 tablet by mouth every four hours as needed Hydrocodone-Acetaminophen Discontinued 1 TABLET PO EVERY 4 HOURS NEEDED 10 2 April 16, 2023 June 01, 2023 1:46pm Start: 12-26-2017 End: 12-29-2017 Hydrocodone-Acetaminophen 1 EACH tablet Discontinued 1 - 2 NMA PO 4 TIMES DAILY NEEDED as needed for Pain 20 5 0 December 25, 2017 11:00pm December 29, 2017 3:07pm Closed fracture of left ankle Other fracture of left lower leg, initial encounter for closed fracture Start: 12-26-2017 End: 12-29-2017 Hydrocodone-Acetaminophen Di scontinued 1 - 2 EACH PO 4 TIMES DAILY NEEDED 20 5 December 25, 2017 11:00pm December 29, 2017 3:07pm acetaminophen 325 mg / oxyCODONE hydrochloride 5 mg oral tablet (12 sources) Opioid Agonist Start: 11-06-2018 End: 11-13-2018 Oxycodone-Acetaminophen 1 TABLET tablet Discontinued 1 {tbl} PO EVERY 6 HOURS NEEDED as needed for Pain 6 3 0 November 06, 2018 November 07, 2018 11:00pm November 12, 2018 11:09pm Sprain of ankle Sprain of unspecified ligament of unspecified ankle, initial encounter Start: 11-06-2018 End: 11-13-2018 take 1 tablet by mouth every six hours as needed Oxycodone-Acetaminophen Discontinued 1 TABLET PO EVERY 6 HOURS NEEDED 6 3 November 06, 2018 November 12, 2018 11:09pm amoxicillin 500 mg oral capsule (12 sources) Penicillin-class Antibacterial Start: 01-27-2021 End: 02-06-2021 take 2 capsules by mouth twice daily Amoxicillin 500 mg capsule Discontinued 1000 mg PO TWICE A DAY 40 10 0 January 26, 2021 11:00pm February 04, 2021 11:00pm February 05, 2021 11:01pm Start: 01-27-2021 End: 02-06-2021 take 1000 mg by mouth twice daily Amoxicillin Discontinued 1000 MG PO TWICE A DAY 40 January 26, 2021 11:00pm February 05, 2021 11:01pm budesonide 3 mg delayed release oral capsule (20 sources) Corticosteroid Start: 03-17-2023 End: 09-04-2024 take 1 capsule by mouth once daily Budesonide 3 mg capsule,delayed,extend.release Discontinued 3 mg PO DAILY 90 March 17, 2023 12:00am September 04, 2024 1:03pm Start: 01-08-2022 take 3 mg by mouth t hree times daily Budesonide Active 3 MG PO THREE TIMES A DAY January 08, 2022 12:00am Start: 10-30-2021 take 1 capsule by mo [facility] every twenty-four hours budesonide, enteric coated (ENTOCORT EC) 3 mg 24 hr capsule take 3 capsules by mouth once daily for 30 DAYS, THEN DECREASE TO... (REFER TO PRESCRIPTION NOTES). 10/30/2021 Active Start: 07-30-2021 End: 10-28-2021 take 3 capsules by mouth once daily, then take 2 capsules by mouth once daily, then take 1 capsule by mouth once daily budesonide, enteric coated (ENTOCORT EC) 3 mg 24 hr capsule Indications: Generalized abdominal pain Take 3 capsules by mouth once daily for 30 days, THEN 2 capsules once daily for 30 days, THEN 1 capsule once daily. 180 capsule 0 07/30/2021 10/28/2021 Active Comment on above: Take 3 capsules by m outh once daily for 30 days, THEN 2 capsules once daily for 30 days, THEN 1 capsule once daily. take 3 capsules by m outh once daily for 30 DAYS, THEN DECREASE TO... (REFER TO PRESCRIPTION NOTES). 12 hr guaiFENesin 600 mg extended release oral tablet (20 sources) Start: 022 End: 023 take 2 tablets by mouth twice daily guaiFENesin (MUCINEX) 600 mg 12 hr tablet Take 2 tablets by mouth twice daily. 24 tablet 0 11/24/2021 10/26/2022 Discontinued (Discontinued by Patient) Comment on above: Take 2 tablets by mo uth twice daily. hydrocortisone acetate 25 mg rectal suppository (2 sources) Corticosteroid Start: End: Hydrocortisone Acetate 25 mg suppository Discontinued 25 mg RC TWICE A DAY 42 January 18, 2024 11:00pm March 30, 2024 9:14am Hydrocortisone Acetate 25 mg suppository (5 sources) Start: End: Hydrocortisone Acetate 25 mg suppository Discontinued 25 mg RC TWICE A DAY 42 January 19, 2024 12:00am March 30, 2024 10:14am Start: 01-19-2024 End: 03-30-2024 Hydrocortisone Acetate 25 mg suppository Discontinued 25 mg RC TWICE A DAY January 19, 2024 12:00am March 30, 2024 10:14am mesalamine 500 mg extended release oral capsule (20 sources) Aminosalicylate Start: 01-08-2022 take 2 capsules by mouth four times daily Mesalamine (Pentasa) 500 mg capsule, extended release Active 1000 MG PO 4 TIMES DAILY January 08, 2022 12:00am Start: 07-30-2021 End: 01-05-2025 take 2 capsules by mouth four times daily Mesalamine (PENTASA) 500 mg CR capsule Indications: Crohn's disease of ileum with other complication (HCC) Take 2 capsules by mouth four times daily. 240 capsule 1 10/26/2022 01/05/2025 Discontinued Comment on above: Take 2 capsules by m [facility] four times daily. metoclopramide 5 mg oral tablet (7 sources) Dopamine-2 Receptor Antagonist Start: 04-03-20 End: 04-24-20 take 1 tablet by mouth 30 minutes before mealtime Metoclopramide Hcl 5 mg tablet Discontinued 5 mg PO before meals 63 April 03, 2024 12:00am April 23, 2024 12:00am April 24, 2024 12:08am administer 30 minutes before meals ondansetron 4 mg disintegrating oral tablet (18 sources) Serotonin-3 Receptor Antagonist Start: 03-28-20 End: 03-30-20 take 1 tablet by mouth every six hours as needed for nausea and vomiting Ondansetron 4 mg tablet,disintegrating Discontinued 4 mg PO EVERY 6 HOURS as needed for nausea and vomiting March 28, 2024 12:00am March 30, 2024 9:15am Start: 04-16-2023 End: 03-30-2024 take 1 tablet by mouth every eight hours as needed for nausea Ondansetron 4 mg tablet,disintegrating Discontinued 4 mg PO EVERY 8 HOURS NEEDED as needed for Nausea 10 April 16, 2023 12:00am March 30, 2024 9:15am Start: 12-22-2020 take 4 mg by mouth e very eight hours Ondansetron Active 4 MG PO Q8H 10 December 22, 2020 12:00am oxyCODONE hydrochloride 5 mg oral tablet (20 sources) Opioid Agonist Start: 01-08-2022 End: 12-23-2022 take 1 tablet by mouth every eight hours as needed for pain oxyCODONE IR (ROXICODONE) 5 mg immediate release tablet Indications: Post-op pain Take 1 tablet by mouth every 8 hours as needed for pain. 5 tablet 0 01/08/2022 12/23/2022 Discontinued Comment on above: Take 1 tablet by sloan every 8 hours as needed for pain. polyethylene glycol 3350 754906 mg / potassium chloride 2970 mg / sodium bicarbonate 6740 mg / sodium chloride 5860 mg / sodium sulfate 24551 mg powder for oral solution (20 sources) Osmotic Laxative Start: 04-07-2023 End: 02-28-2024 Peg 3350-Electrolytes (Golytely) 236-22.74-6.74 -5.86 gram recon soln Discontinued 240 mL PO Q10M 4000 0 April 07, 2023 12:00am February 28, 2024 6:39am until fecal effluent is clear Start: 04-07-2023 Peg 3350-Elect rolytes (Golytely) 236-22.74-6.74 -5.86 gram recon soln Active 240 ML PO Q10M 4000 April 07, 2023 12:00am until fecal effluent is clear Start: 07-07-2021 End: 11-19-2021 peg 3350-Electrolytes (GOLYT ZORA) 236-22.74-6.74 -5.86 gram suspension Indications: RUQ pain , Diarrhea, unspecified type Refer to printed prep instructions from your provider. 4000 mL 0 07/07/2021 11/19/2021 Discontinued Comment on above: Refer to printed pre p instructions from your provider. sucralfate 1000 mg oral tablet (8 sources) Aluminum Complex Start: 04-20-20 End: 06-01-19 take 1 tablet by mouth before mealtime Sucralfate (Carafate) 1 gram tablet Discontinued 1 g PO before meals 90 0 April 20, 2023 12:00am June 01, 2023 1:46pm 1 ml ustekinumab 90 mg/ml prefilled syringe (20 sources) Interleukin-12 Antagonist, Interleukin-23 Antagonist Start: 07-23-19 End: 02-24-20 Ustekinumab (Stelara) 90 mg/mL syringe Discontinued 0 .ROUTE .COMPLEX 1 September 02, 2024 3:47pm February 23, 2025 1:40pm INJECT 90MG (ONE SYRINGE) SUBCUTANEOUSLY EVERY 8 WEEKS Start: 07-23-2023 STELARA 90 mg/ mL injection Start: 05-13-2023 End: 09-02-2024 Ustekinumab (Stelara) 90 mg/ mL syringe Discontinued 90 mg SC every 8 weeks 1 July 23, 2023 2:13pm September 02, 2024 3:48pm Injection: Auth: [id number] Valid: 05/12/2023- 09/08/2023 Start: 05-13-2023 End: 02-23-2025 take 390 mg intravenously once Ustekinumab (Stelara) 1 30 mg/26 mL solution Discontinued 390 mg IV ONCE May 13, 2023 12:00am February 23, 2025 1:40pm Infuse 390mg via IV per protocol for weight of 84.09kg Infusion: Auth: [id number] Valid 04/21/23- 06/16/2023 Problems Active Problems Problem Classification Problem Date Documented Da te Episodic/Chronic Abdominal hernia (5 sources) Umbilical hernia; Translations: [Umbilical hernia without obstruction or gangrene] Episodic Abdominal pain (20 sources) Generalized abdominal pain; Translations: [Generalized abdominal pain] Onset: 05-15-2016 Episodic Biliary tract disease (12 sources) Gallstone; Translations: [Calculus of gallbladder without cholecystitis without obstruction] 05-18-2019 Episodic Chronic obstructive pulmonary disease and bronchiectasis (12 sources) Bronchitis; Translations: [Bronchitis, not specified as acute or chronic] 09-21-2020 Episodic Contraceptive and procreative management (20 sources) Patient encounter status; Translations: [Encounter for surveillance of injectable contraceptive] Episodic Deficiency and other anemia (3 sources) Iron deficiency anemia; Translations: [Iron deficiency anemia, unspecified] 12-23-2022 Episodic Deficiency and other anemia (1 source) Other iron deficiency anemias; Translations: [Other iron deficiency anemia] Onset: 01-05-2025 Episodic Gastritis and duodenitis (20 sources) Gastritis; Translations: [Gastritis, unspecified, without bleeding] 05-18-2019 Episodic Genitourinary symptoms and ill-defined conditions (7 sources) Increased frequency of urination; Translations: [Frequency of micturition] Onset: 01-02-2025 01-02-2025 Episodic Headache; including migraine (19 sources) Migraine; Translations: [Migraine, unspecified, not intractable, without status migrainosus] 05-18-2019 Chronic Headache; including migraine (12 sources) Headache; Translations: [Headache] 12-22-2020 Episodic Headache; including migraine (1 source) Headache; including migraine; Translations: [Headache, unspecified] Onset: 04-27-2024 Immunizations and screening for infectious disease (14 sources) Contact with or exposure to other viral diseases; Translations: [Exposure to COVID-19 virus] Onset: 02-15-2025 Episodic Comment on above: [employer] and double stran d DNA positive 02.22.23 Inflammation; infection of eye (except that caused by tuberculosis or sexually transmitteddisease) (12 sources) Acute conjunctivitis; Translations: [Unspecified acute conjunctivitis, right eye] 01-27-2021 Episodic Inflammatory diseases of female pelvic organs (1 source) Bacterial vaginosis; Translations: [Acute vaginitis] 02-11-2024 Episodic Nausea and vomiting (20 sources) Nausea and vomiting; Translations: [Nausea with vomiting, unspecified] 12-22-2020 Episodic Noninfectious gastroenteritis (1 source) Inflammatory bowel disease; Translations: [Noninfective gastroenteritis and colitis, unspecified] Episodic Nutritional deficiencies (3 sources) Vitamin D deficiency; Translations: [Vitamin D deficiency, unspecified] Onset: 01-05-2025 12-23-2022 Chronic Other connective tissue disease (10 sources) Acquired short Achilles tendon; Translations: [Short Achilles tendon (acquired), left ankle] 09-01-2019 Episodic Other connective tissue disease (2 sources) Acquired short left Achilles tendon; Translations: [Short Achilles tendon (acquired), left ankle] 05-18-2019 Episodic Other ear and sense organ disorders (1 source) Otalgia, left ear; Translations: [Otalgia, unspecified] 02-15-2024 Episodic Other female genital disorders (1 source) Vaginal discharge; Translations: [Other specified noninflammatory disorders of vagina] 02-10-2024 Episodic Other female genital disorders (1 source) Other specified noninflammatory disorders of vagina; Translations: [Vaginal discharge] Onset: 02-15-2025 Episodic Other gastrointestinal disorders (13 sources) Dysphagia; Translations: [Dysphagia, unspecified] 02-28-2024 Episodic Other infections; including parasitic (12 sources) Infection by Trichomonas; Translations: [Trichomoniasis, unspecified] 02-21-2020 Episodic Other lower respiratory disease (1 source) Cough; Translations: [Acute cough] 05-30-2024 Episodic Other lower respiratory disease (2 sources) Persistent cough; Translations: [Persistent cough] 06-01-2024 Episodic Other nervous system disorders (1 source) Postoperative pain ; Translations: [Other acute postprocedural pain] Episodic Other nervous system disorders (12 sources) Pain in limb; Translations: [Other acute postprocedural pain] 12-14-2018 Episodic Other non-traumatic joint disorders (12 sources) Ankle pain; Translations: [Pain in left ankle and joints of left foot] 09-01-2019 Episodic Other nutritional; endocrine; and metabolic disorders (18 sources) Obese class I; Translations: [Obesity, unspecified] Onset: 09-26-2014 Resolved: 10-31-2015 10-31-2015 Chronic Other and delivery including normal (20 sources) with uncertain dates; Translations: [Encounter for supervision of normal , unspecified, first trimester] Onset: 01-29-2011 Resolved: 10-31-2015 09-14-2019 Episodic Other screening for suspected conditions (not mental disorders or infectious disease) (5 sources) Encounter for screening for malignant neoplasm of cervix; Translations: [Encounter for screening for diabetes mellitus] Onset: 07-10-2024 Episodic Other upper respiratory infections (20 sources) Pharyngitis; Translations: [Acute pharyngitis, unspecified] Episodic Poisoning by nonmedicinal substances (12 sources) Toxic effect of unspecified corrosive substance, accidental (unintentional), initial encounter; Translations: [Ingestion of bleach] 09-02-2019 Episodic Regional enteritis and ulcerative colitis (20 sources) Crohn's disease of small intestine; Translations: [Crohn's disease of small intestine with other complication] Onset: 12-09-2021 Chronic Residual codes; unclassified (12 sources) Intolerance to drug; Translations: [Other specified health status] 01-02-2018 Episodic Residual codes; unclassified (1 source) Postoperative state; Translations: [Other specified postprocedural states] Episodic Superficial injury; contusion (12 sources) Contusion of scalp; Translations: [Contusion of scalp, initial encounter] 02-20-2020 Episodic Unclassified (12 sources) No history of clinical finding in subject; Translations: [No significant past medical history] 02-20-2020 Unclassified (1 source) Obesity, Class I, BMI 30-34.9; Translations: [Obesity, Class I, BMI 30-34.9] Onset: 01-05-2025 Urinary tract infections (2 sources) Urinary tract infectious disease; Translations: [Urinary tract infection, site not specified] Onset: 01-02-2025 01-02-2025 Episodic Past or Other Problems Problem Classification Problem Date Documented Da te Episodic/Chronic Deficiency and other anemia (1 source) Iron deficiency anemia, unspecified; Translations: [Iron deficiency anemia, unspecified iron deficiency anemia type] Onset: 07-10-2024 Episodic Diabetes mellitus without complication (20 sources) Impaired fasting glycemia; Translations: [Impaired fasting glucose] Onset: 09-26-2014 09-26-2014 Episodic Diabetes or abnormal glucose tolerance complicating ; childbirth; or the puerperium (16 sources) Abnormal glucose level; Translations: [Abnormal glucose complicating ] Onset: 07-23-2015 Resolved: 10-31-2015 05-05-2021 Episodic Other complications of (15 sources) Anemia of ; Translations: [Anemia complicating , unspecified trimester] Onset: 07-23-2015 Resolved: 10-31-2015 05-05-2021 Chronic Other complications of (20 sources) Spotting per vagina in ; Translations: [Spotting complicating , unspecified trimester] Onset: 09-14-2019 09-14-2019 Episodic Other gastrointestinal disorders (20 sources) Diarrhea; Translations: [Diarrhea, unspecified] Onset: 05-15-2016 05-15-2016 Episodic Other gastrointestinal disorders (1 source) Dysphagia, unspecified; Translations: [Dysphagia, unspecified] Onset: 05-08-2024 Episodic Other non-traumatic joint disorders (2 sources) Pain in left knee; Translations: [Pain in joint, lower leg] Onset: 11-21-2024 11-21-2024 Episodic Unclassified (1 source) Acute pain of left knee 11-21-2024 Results Test Name Value Interpretation Reference Range Facility Gastroenterology Visit Repor ton 02-23-2025 Gastroenterology Visit Report [facility] [address] [place] [address] OFFICE VISIT Date of Service: 02/23/25 MR#: [id number] Acct: [id number] Name: MARY GUILLEN CHARLY Rep #: [id number] : 1990 Provider: Rey Alcaraz DO Age/Sex: 34/F Location: [facility] [place] Status: Signed Intake Vital Signs 11/09/24 12:22 01/02/25 14:40 Height 5 ft 2 in 5 ft 2 in Intake Visit Reasons: 5 M FU/Crohn's disease/ Allergies morphine Adverse Reaction (Verified 11/09/24 12:33) Vomiting pseudoephedrine HCl (From Sudafed) Adverse Reaction (Verified 11/09/24 12:33) Vomiting Medications ???Medication ???Instructions ???Recorded ???Confirmed ???Type cholecalciferol (vitamin D3) 10 10 mcg PO DAILY 12/22/20 02/23/25 History mcg (400 unit) capsule (Vitamin D3) albuterol sulfate 90 mcg/actuation 1 - 2 inh inhalation PRN PRN AST HMA 01/08/22 02/23/25 History aerosol inhaler dicyclomine 10 mg capsule 10 mg PO PRN PRN ABD PAIN 01/08/22 02/23/25 History ferrous sulfate 142 mg (45 mg 45 mg PO BID 01/08/22 02/23/25 His tory iron) tablet,extended release (Slow Release Iron) lansoprazole 30 mg capsule,delayed 30 mg PO DAILY PRN GERD 02/28/24 02/23/25 History release amitriptyline 10 mg tablet 10 mg PO QHS #30 tabs 12/25/24 Rx vedolizumab 300 mg intravenous 300 mg .Route 02/23/25 02/23/25 Hi story solution (Entyvio) PFSH Medical History Easy bruising History of ulceration Heartburn Gastric reflux Periumbilical hernia IFG (impaired fasting glucose) Anemia History of Crohn's disease Non-smoker Hx of fracture of leg Encounter for screening for COVID-19 Acute conjunctivitis, right eye Acute sinusitis, unspecified Asthma Surgical History History of hernia surgery History of tubal ligation History of ear surgery Hx laparoscopic cholecystectomy Social History Smoking Status: Never smoker alcohol intake: never HPI HPI Details: MARY GUILLEN, is a 34 F who presents to the office today for follow up. [facility] established for management of Crohn???s disease. LV 12.03.21 indicates???Pentasa QID and entocort taper???started with improvement of bowel irregularity.???Start Remicade infusions???following biochemical and tubal ligation 01.15.22?EGD and colonoscopy 07.23.21???records requested from [facility]. OV indicates stricture.?CT enterography 08.15.21???mild circumferential hyperenhancement of TI with narrowing of distal TI, caliber 6mm? 09.26.22/02.01.23 requested egd/colon and gi records??? OV 02.22.23 Pt previously seeing GI in [place]. Would like to establish here due to distance. moderately controlled with Remicaide, Pentasa and as needed Dicyclomine. Still has some abdominal pain and diarrhea. Adjusting diet does help. Sx get worse leading up to next infusion. OV 08.20.23 Pt reports minimal symptoms or concerns. Pt is taking dicyclomine, Stelara, Vitamin D, and sucralfate. Pt states that she has small amount of blood in her stool, maybe once a week, if she has to strain. OV 02.28.24 pt reports that she is feeling well overall and denies GI symptoms of concern at this time. Pt reports 2-3 bm per day; reports occasional blood in her stool due to straining. Continues with suppositories, budesonide, and Stelara, last injection was 01.18.24. EGD 04.03.24 Esophageal mucosal changes secondary to eosinophilic esophagitis. Dilated. A large amount of food (residue) in the stomach. No gross lesions in the duodenal bulb. Biopsies were taken with a cold forceps for evaluation of eosinophilic esophagitis. OV 09.04.24 pt denies GI symptoms of concern at this time. Continues with Stelara Q8W. abd/pelvis CT 09.14.24 Stable study findings as detailed. No acute pelvi-abdominal abnormalities, collections or free air. OV 02.23.25 pt reports that she has not noticed an improvement in her symptoms since switching from the Stelara to Entyvio. Pt reports that she has been vomiting more and does not think that she is digesting her food. pt reports emesis about 3 times a week. ESR / CRP Calp / Lact Serum / AB 11.24.23 7 13.4 -- / -- 0.7 / neg 08.23.24 19 / 14.8 -- / -- 1.8 / neg 09.28.24 Start Entyvio 12.21.24 15 13.0 -- / -- 17 / neg ROS Const Constitutional: No fatigue, fever(s) or weight change ENT ENT: No difficulty swallowing Gastro GI: Positive for nausea/dyspepsia and vomiting; No abdominal pain, belching, bloating, change in bowel habits, change in stool character, coffee ground emesis, constipation, cramping, diarrhea, heartburn, difficulty swal (more content not included)... Normal [facility] BACTERIAL VAGINOSIS NAATon 1 Lactobacillus crispatus+gasseri+hawk ii + Gardnerella vaginalis + Atopobium vaginae rRNA PAULO+probe Ql (Vag fld) Detected Abnormal Not detected [facility] Comment on above: Order Comment: Speci men Type: SWABOrdering Facility: [facility] Address: [address] [place] [address] Performed By: #### B VAMP, [id number] ####[facility] LABCLIA [id number] [place] [address] [place] C. trachomatis+N. gonorrhoea e DNA PAULO+probe Ql (Unsp spec)on 02-15-2025 C. trachomatis rRNA PAULO+probe Ql (Unsp spec) Not detected Normal Not detected [facility] Comment on above: Order Comment: Speci men Type: SWABOrdering Facility: [facility] Address: [address] [place] [address] Performed By: #### B VAMP, [id number] ####[facility] LABCLIA [id number] [place] [address] [place] N. gonorrhoeae rRNA PAULO+probe Ql (Unsp spec) Not detected Normal Not detected [facility] Comment on above: Order Comment: Speci men Type: SWABOrdering Facility: [facility] Address: [address] [place] [address] Performed By: #### B VAMP, [id number] ####[facility] LABCLIA [id number] [place] [address] [place] SIMON/TRICHOMONAS NAATon 1 C. glabrata RNA PAULO+probe Ql (Vag fld) Not detected Normal Not detected [facility] Comment on above: Order Comment: Speci men Type: SWABOrdering Facility: [facility] Address: [address] [place] [address] Performed By: #### C VTV ####[facility] LABCLIA [id number] [address] [place] Simon sp DNA PAULO+probe Ql (Vag fld) Not detected Normal Not detected [facility] Comment on above: Order Comment: Speci men Type: SWABOrdering Facility: [facility] Address: [address] [place] [address] Result Comment: The Simon species group target includes C. albicans, C. tropicalis, C. parapsilosis, and C. dubliniensis. Performed By: #### C VTV ####[facility] LABIA [id number] [address] [place] T. vaginalis DNA PAULO+probe Ql (Unsp spec) Detected Abnormal Not detected [facility] Comment on above: Order Comment: Speci men Type: SWABOrdering Facility: [facility] Address: [address] [place] [address] Performed By: #### C VTV ####[facility] LABCLIA [id number] [address] [place] CNOVon 02-15-2025 CNOV Office Visit (OBGYWM ) ----- MARY GUILLEN ([id number]) 1990 F Date Time Provider Department 02/15/25 2:30 PM ANNIA REDD OBGYWM During your visit today, we recorded the following information about you: Blood pressure Weight Height Last Period 124/78 88.9 kg 1.6 m 02/10/25 Annia Redd MD 02/23/2025 8:49 AM Addendum Automation Qtp Tester offered: Patient declines. Hernandez is a 34 year old who presents for an annual gynecologic exam - increased vaginal discharge- no changes in odor or color- denies itching, burning or pain. Has recently changed soaps. Also on a new medication for Crohns disease. 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 and HS Still get period: Yes Menses: cycles every 28 days and 4 days of flow Menstrual flow: Moderate Sexually active: Yes Contraception: Tubal Ligation Contraception frequency: Always HPV vaccine: No HPV:negative Last pap smear: 2020 wnl History of abnormal pap: No Last mammogram: na Sexually active: No- last encounter 3 mo ago OB History Gravida4 Para2 Term2 Preterm0 AB2 Living2 SAB2 IAB0 Ectopic0 Multiple0 Live Births2 Research Scholar History LMP: 02/10/2025 (Approximate), Having periods Age at Menarche: Age at First : Age at Menopause: Research Scholar History Comments: Sexual Activity: Not Currently; Male Contraception: Tubal Ligation PAST MEDICAL HISTORY Diagnosis Date Anemia Asthma (HCC) Crohn's disease (HCC) Impaired fasting glucose 09/2014 Miscarriage (HCC) Unspecified asthma(493.90) PAST SURGICAL HISTORY Procedure Laterality Date CHOLECYSTECTOMY HX 2015 COLONOSCOPY 07/23/2021 EGD 07/23/2021 INSERTION OF IUD 06/11/2009 Mirena IUD REMOVAL (CERAMIC TILE SETTER DEPT)_*FL 02/2010 NEXPLANON INSERTION 03/19/2014,10/2015 left arm NEXPLANON REMOVAL 04/08/2017 PAST SURGICAL HISTORY OF Left 12/29/2017 ORIF medial and lateral malleolus of trimalleolar ankle fracture; Dr. Jeri Ramesh REPAIR UMBILICAL HERNIA 01/15/2022 SALPINGECTOMY Bilateral 01/15/2022 laparoscopic TYMPANOSTOMY LOCAL/TOPICAL ANESTHESIA FAMILY HISTORY Problem Relation Age of Onset [...] Diabetes Paternal Grandmother Asthma Son Asthma Son SOCIAL HISTORY Social History Tobacco Use Smoking status: Never Smokeless tobacco: Never Vaping Use Vaping status: Never Used Substance Use Topics Alcohol use: Not Currently Drug use: Never REVIEW OF SYSTEMS Abdomen: No abdominal pain, nausea, vomiting, diarrhea, or constipation. No bloating, early satiety, indigestion, or increased flatulence. Bladder: No dysuria, gross hematuria, urinary frequency, urinary urgency, or incontinence. Breast: No breast lumps, nipple d/c, overlying skin changes, redness or skin retraction. Allergies and current medication updated:Yes SENSITIVE EXAM: The sensitive examination was discussed with the Patient or Patient's Authorized Biochemist. As applicable, any other physician, advance practice provider, medical student, or other health professional student that will be observing or involved in the sensitive examination for educational or training purposes was discussed with the Patient or Authorized Biochemist. The Patient or Authorized Biochemist has agreed to proceed with the sensitive examination. (Sensitive examination includes inspection and/or palpation of the breasts, pelvis, prostate and anorectal regions). EXAM: BP 124/78 Ht 5' 3 (1.60m) Wt 196 lb (88.9kg) LMP 02/10/2025 BMI 34.73 kg/(m2). GENERAL: pleasant, female in no apparent distress HEENT: Normocephalic, atraumatic, mucus membranes moist, and no lesions NECK: Supple, full range of motion, no adenopathy, and thyroid normal DERMATOLOGY: Normal, without lesions, non-icteric, and non-hirsute BREAST: soft, non-tender, symmetric, no dominant mass, normal nipple-areolar complex, no lymphadenopathy, and no nipple discharge CHEST: Normal inspiratory effort ABDOMEN: soft, non-tender, and no masses PELVIC: external genitalia normal, normal Bartholin's glands, urethra, Sayner's glands, no vulvar lesions, no cervical lesions, good vaginal support, normal appearing perineal body and perianal region, moderate amount of yellow thin discharge. BIMANUAL: uterus normal size, shape and consistency, no adnexal masses, and non-tender RECTOVAGINAL: deferred. NEURO: alert and oriented x3,exam grossly non-focal EXTREMITIES: nor (more content not included)... Normal [facility] HIGH RISK HUMAN PAPILLOMA LILIANA (HPV), PCR FOR DETECTION AND GENOTYPINGon 02-15-2025 HPV 16 Ag Ql (Unsp spec) Not detected Normal Not detected [facility] Comment on above: Order Comment: Speci men Type: FLUID SPECIMENOrdering Facility: [facility] Address: [address] [place] [address] Performed By: #### H PVHRT ####[facility] LABCLIA [id number] [place] [address] [place] HPV 18 Ag Ql (Unsp spec) Not detected Normal Not detected [facility] Comment on above: Order Comment: Speci men Type: FLUID SPECIMENOrdering Facility: [facility] Address: [address] [place] [address] Performed By: #### H PVHRT ####[facility] LABIA [id number] [place] [address] [place] HPV 31+33+35+39+45+51+52+56+ 58+59+66+68 DNA PAULO+probe Ql (Cvx) Not detected Normal Not detected [facility] Comment on above: Order Comment: Speci men Type: FLUID SPECIMENOrdering Facility: [facility] Address: [address] [place] [address] Result Comment: High Risk HPV Other Type includes HPV types 31, 33, 35, 39, 45, 51, 52, 56, 58, 59, 66 and 68. Performed By: #### H PVHRT ####[facility] LABIA [id number] [place] [address] [place] PAP TESTon 02-15-2025 ADEQUACY Normal [facility] Comment on above: Order Comment: Speci men Type: FLUID SPECIMENOrdering Facility: [facility] Address: [address] [place] [address] Result Comment: Sati sfactory for interpretation. Transformation zone present Performed By: #### L [id number] ####[facility] LABIA [id number] [place] [address] [place] CASE REPORT Normal [facility] Comment on above: Order Comment: Speci men Type: FLUID SPECIMENOrdering Facility: [facility] Address: [address] [place] [address] Result Comment: Gyne cologic Cytology Report Case: [id number] Authorizing Provider: Annia Redd, Collected: 02/15/2025 03:08 PM Ordering Location: OB/Gynecology Received: 02/15/2025 04:50 PM First Screen: Indra, Kelly, CT, ASCP Specimen: Pap Test, ThinPrep, Cervix Performed By: #### L [id number] ####[facility] LABCLIA [id number] [place] [address] [place] CLINICAL HISTORY, CYTOLOGY, CERAMIC TILE SETTER Routine Exam Normal [facility] Comment on above: Order Comment: Speci men Type: FLUID SPECIMENOrdering Facility: [facility] Address: [address] [place] [address] Performed By: #### L [id number] ####[facility] LABCLIA [id number] [place] [address] [place] CYTOLOGY PAP OTHER INTERPRETATION Trichomonas vaginalis. Normal [facility] Comment on above: Order Comment: Speci men Type: FLUID SPECIMENOrdering Facility: [facility] Address: [address] [place] [address] Performed By: #### L [id number] ####[facility] LABCLIA [id number] [address] [place] FINAL PERFORMING LAB Normal [facility] Comment on above: Order Comment: Speci men Type: FLUID SPECIMENOrdering Facility: [facility] Address: [address] [place] [address] Result Comment: Tech nical component, personal counselor screening performed at: [facility], [address] [place] [address] CLIA: [id number] Diagnostic interpretation performed at: [facility], [address] [place] [address] CLIA# [id number] Electronic Equipment Repairer: Aubrey Lambert MD Performed By: #### L [id number] ####[facility] LABCLIA [id number] [place] [address] [place] INTERPRETATION, CYTOLOGY, CERAMIC TILE SETTER Normal [facility] Comment on above: Order Comment: Speci men Type: FLUID SPECIMENOrdering Facility: [facility] Address: [address] [place] [address] Result Comment: Nega tive for intraepithelial lesion or malignancy. at 1017 EDT Performed By: #### L [id number] ####[facility] LABCLIA [id number] [place] [address] [place] LMP 02/10/2025 Normal [facility] Comment on above: Order Comment: Speci men Type: FLUID SPECIMENOrdering Facility: [facility] Address: [address] [place] [address] Performed By: #### L [id number] ####[facility] LABCLIA [id number] [place] [address] [place] PAP DISCLAIMER COMMENT The Pap Smear is a screening test for cervical cancer. False negative results occur with all screening tests, emphasizing the need for rescreening at recommended intervals, and clinical correlation. Normal [facility] Comment on above: Order Comment: Speci men Type: FLUID SPECIMENOrdering Facility: [facility] Address: [address] [place] [address] Performed By: #### L [id number] ####[facility] LABCLIA [id number] [place] [address] [place] PAP EASTER BUNNY COMMENT This specimen has be en analyzed by the FDA-approved PlasmaSi System, which uses digital imaging and an enhanced artificial intelligence image analysis algorithm to identify obando of interest on the microscopic slide, to assist the poker supervisor and pathologist in evaluating cells on ThinPrep Pap tests. Following analysis, obando of interest on the microscopic slide selected by the algorithm are reviewed by a poker supervisor. If a sample requires hierarchical review, the pathologist will review the same obando of interest selected by the algorithm prior to final interpretation. Normal [facility] Comment on above: Order Comment: Speci men Type: FLUID SPECIMENOrdering Facility: [facility] Address: [address] [place] [address] Performed By: #### L [id number] ####[facility] LABCLIA [id number] [place] [address] [place] 25(OH)D3 SerPl-ncon 2024 25-hydroxyvitamin D3 [Mass/Vol] 27.7 ng/mL Low 31.0-80.0 [facility] Comment on above: Order Comment: Speci men Type: BLOOD SPECIMENOrdering Facility: [facility] Address: [address] [place] [address] Result Comment: Clas sification of 25 [place] Vitamin D status: Deficiency/Insufficiency: < or = 30 ng/ml. Sufficiency/Optimal Levels: 31-80 ng/mL Toxicity: > 100 ng/mL. Test performed by chemiluminescent immunoassay. Performed By: #### 1 989-3 ####[facility] LABCLIA [id number] [facility] [id number] [place] [address] [place] CBC W Auto Differential pane l (Bld)on 01-05-2025 Basophils (Bld) [#/Vol] 0.03 10*3/uL [facility] Basophils/100 WBC (Bld) 0.3 % [facility] Differential cell count method Nom (Bld) Auto [facility] Eosinophils (Bld) [#/Vol] 0.04 10*3/uL [facility] Eosinophils/100 WBC (Bld) 0.4 % [facility] Erythrocyte distribution width (RBC) [Ratio] 12.5 % 11.5 - 15.0 % [facility] Hematocrit (Bld) [Volume fraction] 38.2 % 36.0 - 46.0 % [facility] Hemoglobin (Bld) [Mass/Vol] 12.4 g/dL 11.5 - 15.5 g/dL [facility] Immature granulocytes (Bld) [#/Vol] 0.03 10*3/uL [facility] Immature granulocytes/100 WBC (Bld) 0.3 % [facility] Lymphocytes (Bld) [#/Vol] 2.68 10*3/uL [facility] Lymphocytes/100 WBC (Bld) 29.5 % [facility] MCH (RBC) [Entitic mass] 29.9 pg 26. 0 - 34.0 pg [facility] MCHC (RBC) [Mass/Vol] 32.5 g/dL 30.5 - 36.0 g/dL [facility] MCV (RBC) [Entitic vol] 92.0 fL 80.0 - 100.0 fL [facility] Monocytes (Bld) [#/Vol] 0.48 10*3/uL [facility] Monocytes/100 WBC (Bld) 5.3 % [facility] Neutrophils (Bld) [#/Vol] 5.83 10*3/uL [facility] Neutrophils/100 WBC (Bld) 64.2 % [facility] Nucleated RBC (Bld) [#/Vol] NINF [facility] Nucleated RBC/100 WBC (Bld) [Ratio] 0.0 % /100 WBC [facility] Platelet mean volume (Bld) [Entitic vol] 9.8 fL 9.0 - 12.7 fL [facility] Platelets (Bld) [#/Vol] 315 10*3/uL [facility] RBC (Bld) [#/Vol] 4.15 10*6/uL 3.90 - 5.20 m/uL [facility] WBC (Bld) [#/Vol] 9.09 10*3/uL [facility] Basophils (Bld) [#/Vol] 0.03 10*3/uL Normal <0.11 [facility] Comment on above: Order Comment: Speci men Type: BLOOD SPECIMENOrdering Facility: [facility] Address: [address] [place] [address] Performed By: #### 5 7021-8 ####[facility] LABCLIA [id number] [place] [address] [place] Basophils/100 WBC (Bld) 0.3 % Normal [facility] Comment on above: Order Comment: Speci men Type: BLOOD SPECIMENOrdering Facility: [facility] Address: [address] [place] [address] Performed By: #### 5 7021-8 ####[facility] LABCLIA [id number] [place] [address] [place] Differential cell count method Nom (Bld) Auto Normal [facility] Comment on above: Order Comment: Speci men Type: BLOOD SPECIMENOrdering Facility: [facility] Address: [address] [place] [address] Performed By: #### 5 7021-8 ####[facility] LABCLIA [id number] [place] [address] [place] Eosinophils (Bld) [#/Vol] 0.04 10*3/uL Normal <0.46 [facility] Comment on above: Order Comment: Speci men Type: BLOOD SPECIMENOrdering Facility: [facility] Address: [address] [place] [address] Performed By: #### 5 7021-8 ####[facility] LABIA [id number] [place] [address] [place] Eosinophils/100 WBC (Bld) 0.4 % Normal [facility] Comment on above: Order Comment: Speci men Type: BLOOD SPECIMENOrdering Facility: [facility] Address: [address] [place] [address] Performed By: #### 5 7021-8 ####[facility] LABIA [id number] [place] [address] [place] Erythrocyte distribution width (RBC) [Ratio] 12.5 % Normal 11.5-15.0 [facility] Comment on above: Order Comment: Speci men Type: BLOOD SPECIMENOrdering Facility: [facility] Address: [address] [place] [address] Performed By: #### 5 7021-8 ####[facility] LABIA [id number] [address] [place] Hematocrit (Bld) [Volume fraction] 38.2 % Normal 36.0-46.0 [facility] Comment on above: Order Comment: Speci men Type: BLOOD SPECIMENOrdering Facility: [facility] Address: [address] [place] [address] Performed By: #### 5 7021-8 ####[facility] LABCLIA [id number] [place] [address] [place] Hemoglobin (Bld) [Mass/Vol] 12.4 g/dL Normal 11.5-15.5 [facility] Comment on above: Order Comment: Speci men Type: BLOOD SPECIMENOrdering Facility: [facility] Address: [address] [place] [address] Performed By: #### 5 7021-8 ####[facility] LABCLIA [id number] [place] [address] [place] Immature granulocytes (Bld) [#/Vol] 0.03 10*3/uL Normal <0.10 [facility] Comment on above: Order Comment: Speci men Type: BLOOD SPECIMENOrdering Facility: [facility] Address: [address] [place] [address] Performed By: #### 5 7021-8 ####[facility] LABIA [id number] [place] [address] [place] Immature granulocytes/100 WBC (Bld) 0.3 % Normal [facility] Comment on above: Order Comment: Speci men Type: BLOOD SPECIMENOrdering Facility: [facility] Address: [address] [place] [address] Performed By: #### 5 7021-8 ####[facility] LABIA [id number] [place] [address] [place] Lymphocytes (Bld) [#/Vol] 2.68 10*3/uL Normal 1.00-4.00 [facility] Comment on above: Order Comment: Speci men Type: BLOOD SPECIMENOrdering Facility: [facility] Address: [address] [place] [address] Performed By: #### 5 7021-8 ####[facility] LABIA [id number] [place] [address] [place] Lymphocytes/100 WBC (Bld) 29.5 % Normal [facility] Comment on above: Order Comment: Speci men Type: BLOOD SPECIMENOrdering Facility: [facility] Address: [address] [place] [address] Performed By: #### 5 7021-8 ####[facility] LABIA [id number] [place] [address] [place] MCH (RBC) [Entitic mass] 29.9 pg Normal 26.0-34.0 [facility] Comment on above: Order Comment: Speci men Type: BLOOD SPECIMENOrdering Facility: [facility] Address: [address] [place] [address] Performed By: #### 5 7021-8 ####[facility] LABIA [id number] [place] [address] [place] MCHC (RBC) [Mass/Vol] 32.5 g/dL Normal 30.5-36.0 [facility] Comment on above: Order Comment: Speci men Type: BLOOD SPECIMENOrdering Facility: [facility] Address: [address] [place] [address] Performed By: #### 5 7021-8 ####[facility] LABIA [id number] [place] [address] [place] MCV (RBC) [Entitic vol] 92.0 fL Normal 80.0-100.0 C [facility] Comment on above: Order Comment: Speci men Type: BLOOD SPECIMENOrdering Facility: [facility] Address: [address] [place] [address] Performed By: #### 5 7021-8 ####[facility] LABIA [id number] [place] [address] [place] Monocytes (Bld) [#/Vol] 0.48 10*3/uL Normal <0.87 [facility] Comment on above: Order Comment: Speci men Type: BLOOD SPECIMENOrdering Facility: [facility] Address: [address] [place] [address] Performed By: #### 5 7021-8 ####[facility] LABCLIA [id number] [place] [address] [place] Monocytes/100 WBC (Bld) 5.3 % Normal [facility] Comment on above: Order Comment: Speci men Type: BLOOD SPECIMENOrdering Facility: [facility] Address: [address] [place] [address] Performed By: #### 5 7021-8 ####[facility] LABCLIA [id number] [place] [address] [place] Neutrophils (Bld) [#/Vol] 5.83 10*3/uL Normal 1.45-7.50 [facility] Comment on above: Order Comment: Speci men Type: BLOOD SPECIMENOrdering Facility: [facility] Address: [address] [place] [address] Performed By: #### 5 7021-8 ####[facility] LABCLIA [id number] [place] [address] [place] Neutrophils/100 WBC (Bld) 64.2 % Normal [facility] Comment on above: Order Comment: Speci men Type: BLOOD SPECIMENOrdering Facility: [facility] Address: [address] [place] [address] Performed By: #### 5 7021-8 ####[facility] LABCLIA [id number] [place] [address] [place] Nucleated RBC (Bld) [#/Vol] 10*3/uL Normal <0.01 [facility] Comment on above: Order Comment: Speci men Type: BLOOD SPECIMENOrdering Facility: [facility] Address: [address] [place] [address] Performed By: #### 5 7021-8 ####[facility] LABCLIA [id number] [place] [address] [place] Nucleated RBC/100 WBC (Bld) [Ratio] 0.0 /100 WBC Normal [facility] Comment on above: Order Comment: Speci men Type: BLOOD SPECIMENOrdering Facility: [facility] Address: [address] [place] [address] Performed By: #### 5 7021-8 ####[facility] LABCLIA [id number] [place] [address] [place] Platelet mean volume (Bld) [Entitic vol] 9.8 fL Normal 9.0-12.7 [facility] Comment on above: Order Comment: Speci men Type: BLOOD SPECIMENOrdering Facility: [facility] Address: [address] [place] [address] Performed By: #### 5 7021-8 ####[facility] LABCLIA [id number] [place] [address] [place] Platelets (Bld) [#/Vol] 315 10*3/uL Normal 150-400 [facility] Comment on above: Order Comment: Speci men Type: BLOOD SPECIMENOrdering Facility: [facility] Address: [address] [place] [address] Performed By: #### 5 7021-8 ####[facility] LABCLIA [id number] [place] [address] [place] RBC (Bld) [#/Vol] 4.15 10*6/uL Normal 3.90-5.20 [facility] Comment on above: Order Comment: Speci men Type: BLOOD SPECIMENOrdering Facility: [facility] Address: [address] [place] [address] Performed By: #### 5 7021-8 ####[facility] LABCLIA [id number] [place] [address] [place] WBC (Bld) [#/Vol] 9.09 10*3/uL Normal 3.70-11.00 [facility] Comment on above: Order Comment: Speci men Type: BLOOD SPECIMENOrdering Facility: [facility] Address: [address] [place] [address] Performed By: #### 5 7021-8 ####[facility] LABCLQUEENIE [id number] ISABEL ZAMORA [id number] [place] [address] [place] [facility] CNOVon 01-05-2025 CNOV Office Visit (FAMPWS ) ----- MARY GUILLEN ([id number]) 1990 F Date Time Provider Department 01/05/25 1:20 PM [facility] During your visit today, we recorded the following information about you: Temperature Pulse Blood pressure Weight 98.4 degrees 100/minute 116/68 88.9 kg Danna Ramirez, [employer] P[employer]ER.RECORDING ARTIST 01/05/2025 2:05 PM Signed This is a 34 year old female who presents today with: Follow up with urinary symptoms, urgent care follow up HPI from urgent care visit 01/02: Urinary Frequency and Lower Back Pain: - Onset 2 days ago. - Denies , fever, chills, nausea, emesis, or abdominal pain. - Has not taken any medication at home. Follow up: DAYTON Hernandez, Your urine culture has returned and is negative for bacterial growth. You can stop taking the antibiotic. Follow up with your PCP related to the blood noted in your urine during your exam. HISTORY OF PRESENT ILLNESS: UTI: - Recent UTI with symptoms of back pain and increased urinary frequency, now resolved although some continued back pain - Mild dysuria, no longer present. - Mary feels she is emptying her bladder completely. - Currently on antibiotics, with the last dose scheduled for tomorrow. - No history of UTIs. - No fevers, myalgia, chills Crohn's Disease: - Currently on infusions - immunotherapy - Mary is uncertain about the effectiveness of the medication. - Scheduled to see Dr. Alcaraz next month for further evaluation. - Recent labs from November not available in the current system. - Mary reports occasional hematochezia, unsure if related to menstruation or hemorrhoids or her crohns Menstrual Irregularities: - Irregular menstrual cycles since tubal ligation. - Variability in flow, with some months heavy and others light spotting. - Last menstrual period approximately one week before the onset of UTI symptoms. Vitamin D Deficiency: - History of vitamin D deficiency, previously on supplementation stating they told her to take the high dose two pills and then she never took any more - Mary is not currently taking vitamin D supplements. Prior iron deficiency with supplementation, no longer taking Some anxiety over having a UTI, new infusion med, concerned with health PAST MEDICAL HISTORY: PAST MEDICAL HISTORY Diagnosis Date Anemia Asthma (HCC) Crohn's disease (HCC) Impaired fasting glucose 09/2014 Miscarriage (HCC) Unspecified asthma(493.90) PAST SURGICAL HISTORY Procedure Laterality Date CHOLECYSTECTOMY HX 2016 COLONOSCOPY 07/23/2021 EGD 07/23/2021 INSERTION OF IUD 06/11/2009 Mirena IUD REMOVAL (CERAMIC TILE SETTER DEPT)_*FL 02/2010 NEXPLANON INSERTION 03/19/2014,10/2015 left arm NEXPLANON REMOVAL 04/08/2017 PAST SURGICAL HISTORY OF Left 12/29/2017 ORIF medial and lateral malleolus of trimalleolar ankle fracture; Dr. Jeri Ramesh REPAIR UMBILICAL HERNIA 01/15/2022 SALPINGECTOMY Bilateral 01/15/2022 laparoscopic TYMPANOSTOMY LOCAL/TOPICAL ANESTHESIA ALLERGIES Morphine and Sudafed [Pseudoephedrine Hcl] MEDICATIONS Current Outpatient Medications Medication Sig nitrofurantoin monohydrate and macrocrystal (MACROBID) 100 mg capsule Take 1 capsule by mouth two times a day for 5 days. albuterol (PROVENTIL) 2.5 mg /3 mL (0.083 %) nebulizer solution Use 3 mL via nebulizer every 4 hours as needed for wheezing/shortness of breath. benzonatate (TESSALON PERLE) 100 mg capsule Take 1 capsule by mouth three times a day as needed. Nebulizer and Compressor For Neb 1 Each as needed. albuterol HFA (PROVENTIL HFA, VENTOLIN HFA) 90 mcg/actuation inhaler Inhale 2 Puffs as instructed every 4 hours as needed for wheezing/shortness of breath. dicyclomine (BENTYL) 10 mg capsule Take 1 capsule by mouth three times daily as needed (for abdominal pain). budesonide, enteric coated (ENTOCORT EC) 3 mg 24 hr capsule take 3 capsules by mouth once daily for 30 DAYS, THEN DECREASE TO... (REFER TO PRESCRIPTION NOTES). vedolizumab (ENTYVIO) 300 mg injection Inject 300 mg intravenously one time only for [address] Alcaraz's office administers and manages for her crohns, tapering up dosing and intermittent infusions No current facility-administered medications for this visit. FAMILY HISTORY Problem Relation Age of Onset [...] Diabetes Paternal Grandmother Asthma Son Asthma Son SOCIAL HISTORY[1] REVIEW OF SYSTEMS See HPI EXAM: BP 116/68 (BP (more content not included)... Normal [facility] Iron and Iron binding capaci ty panelon 01-05-2025 Iron [Mass/Vol] 75 ug/dL Normal 41-186 [facility] Comment on above: Order Comment: Speci men Type: BLOOD SPECIMENOrdering Facility: [facility] Address: [address] [place] [address] Performed By: #### 5 0190-8 ####[facility] LABCLIA [id number] [place] [address] [place] Iron binding capacity [Mass/Vol] 346 ug/dL Normal 232-386 [facility] Comment on above: Order Comment: Speci men Type: BLOOD SPECIMENOrdering Facility: [facility] Address: [address] [place] [address] Performed By: #### 5 0190-8 ####[facility] LABCLIA [id number] [place] [address] [place] Iron/TIBC [Molar ratio] 21.7 % Normal 15.0-57.0 C [facility] Comment on above: Order Comment: Speci men Type: BLOOD SPECIMENOrdering Facility: [facility] Address: [address] [place] [address] Performed By: #### 5 0190-8 ####[facility] LABIA [id number] [address] [place] UA DIP, URINE (POC)on 2024 BILIRUBIN UA (POCT) Negative Negative [facility] CLARITY UA (POCT) Clear [facility] COLOR UA (POCT) Yellow [facility] GLUCOSE UA (POCT) Negative Negative mg/dL [facility] Hemoglobin Ql (U) Trace-intact Abnormal Negative [facility] Interpretation and review of laboratory results Abnormal [facility] KETONE UA (POCT) Trace Negative mg/dL [facility] LEUKOCYTES UA (POCT) Large Abnormal Negative [facility] NITRITE UA (POCT) Negative Negative [facility] PH UA (POCT) 7.0 4.5 - 8.0 [facility] Protein Ql (U) 100 mg/dL Abnormal Negative [facility] SPECIFIC GRAVITY UA (POCT) 1.020 1.005 - 1.030 [facility] UROBILINOGEN UA (POCT) 0.2 Isabella l E.U./dL [facility] Location:[address], [address] [place] [address] POINT OF CARE [facility] Bacteria Ur Culton 5 Bacteria identified Cx Nom (U) ORGANISM ID: 1 10,000 -<50,000 CFU/ml Normal urogenital chuckie Normal [facility] Comment on above: Performed By: #### 6 30-4 ####[facility] LABIA [id number] [address] OF [facility] CNOVon 01-02-2025 CNOV Office Visit (WOZONIA) ----- MARY GUILLEN ([id number]) 1990 F Date Time Provider Department 01/02/25 2:15 PM LEXIE BYERS During your visit today, we recorded the following information about you: Temperature Pulse Respiration Blood pressure 97.9 degrees 82/minute 16/minute 112/76 Weight 89.4 kg Lexie Byers APRN.[facility] 01/02/2025 2:47 PM Signed [facility] Subjective Mary Guillen is a 34 year old female. Patient presents with: Urinary Frequency: Frequency and lower back pain x 2 days HPI The patient is a 34-year-old female presenting with urinary frequency and lower back pain. Urinary Frequency and Lower Back Pain: - Onset 2 days ago. - Denies , fever, chills, nausea, emesis, or abdominal pain. - Has not taken any medication at home. Review of Systems Constitutional: (-) fever, (-) chills Gastrointestinal: (-) nausea, (-) vomiting, (-) abdominal pain Genitourinary: (+) urinary frequency Musculoskeletal: (+) lower back pain Objective BP 112/76 Pulse 82 Temp 36.6 ?C (97.9 ?F) (Tympanic) Resp 16 Wt 89.4 kg (197 lb 1.5 oz) LMP 11/02/2024 (Approximate) SpO2 98% BMI 34.92 kg/m? PAST MEDICAL HISTORY Diagnosis Date - Anemia - Asthma (HCC) - Crohn's disease (HCC) - Impaired fasting glucose 09/2014 - Miscarriage (HCC) - Unspecified asthma(493.90) PAST SURGICAL HISTORY Procedure Laterality Date - CHOLECYSTECTOMY HX 2016 - COLONOSCOPY 07/23/2021 - EGD 07/23/2021 - INSERTION OF IUD 06/11/2009 Mirena - IUD REMOVAL (CERAMIC TILE SETTER DEPT)_*FL 02/2010 - NEXPLANON INSERTION 03/19/2014,10/2015 left arm - NEXPLANON REMOVAL 04/08/2017 - PAST SURGICAL HISTORY OF Left 12/29/2017 ORIF medial and lateral malleolus of trimalleolar ankle fracture; Dr. Jeri Ramesh - REPAIR UMBILICAL HERNIA 01/15/2022 - SALPINGECTOMY Bilateral 01/15/2022 laparoscopic - TYMPANOSTOMY LOCAL/TOPICAL ANESTHESIA ALLERGIES Morphine and Sudafed [Pseudoephedrine Hcl] MEDICATIONS - cholecalciferol, vitamin D3, 10 mcg (400 unit) cap Take 400 Units by mouth once daily. - albuterol (PROVENTIL) 2.5 mg /3 mL (0.083 %) nebulizer solution Use 3 mL via nebulizer every 4 hours as needed for wheezing/shortness of breath. - STELARA 90 mg/mL injection 90 mg every 8 weeks. - albuterol HFA (PROAIR HFA) 90 mcg/actuation inhaler Inhale 2 Puffs as instructed every 6 hours as needed. - dicyclomine (BENTYL) 10 mg capsule Take 1 capsule by mouth three times daily as needed (for abdominal pain). - SLOW RELEASE IRON 142 mg (45 mg iron) TbER Take 45 mg by mouth twice daily with meals. - nitrofurantoin monohydrate and macrocrystal (MACROBID) 100 mg capsule Take 1 capsule by mouth two times a day for 5 days. - benzonatate (TESSALON PERLE) 100 mg capsule Take 1 capsule by mouth three times a day as needed. (Patient not taking: Reported on 11/21/2024) - Nebulizer and Compressor For Neb 1 Each as needed. (Patient not taking: Reported on 11/21/2024) - albuterol HFA (PROVENTIL HFA, VENTOLIN HFA) 90 mcg/actuation inhaler Inhale 2 Puffs as instructed every 4 hours as needed for wheezing/shortness of breath. (Patient not taking: Reported on 11/21/2024) - Mesalamine (PENTASA) 500 mg CR capsule Take 2 capsules by mouth four times daily. (Patient not taking: Reported on 11/21/2024) - budesonide, enteric coated (ENTOCORT EC) 3 mg 24 hr capsule take 3 capsules by mouth once daily for 30 DAYS, THEN DECREASE TO... (REFER TO PRESCRIPTION NOTES). (Patient not taking: Reported on 11/21/2024) - albuterol HFA (PROVENTIL HFA, VENTOLIN HFA) 90 mcg/actuation inhaler Inhale 2 Puffs as instructed every 2 hours as needed for wheezing/shortness of breath. (Patient not taking: Reported on 11/21/2024) FAMILY HISTORY Problem Relation Age of Onset - No Known Problems Mother - No Known Problems Father - No Known Problems Sister - No Known Problems Sister - No Known Problems Sister - No Known Problems Sister - No Known Problems Brother - No Known Problems Brother - No Known Problems Brother - No Known Problems Brother - Cancer Maternal Grandmother liver and lung - Dementia Maternal Grandfather - COPD Maternal Grandfather - Hyperlipidemia Maternal Grandfather - Ulcerative Colitis Maternal Grandfather - Diabetes Paternal Grandmother - Asthma Son - Asthma Son SOCIAL HISTORY[1] Physical Exam Vitals and nursing note reviewed. Constitutional: General: She is not in acute distress. Appearance: Normal appearance. She is not ill-appearing. Cardiovascular: Rate and Rhythm: Normal rate and regular rhythm. Heart sounds: Normal heart sounds. Pulmonary: Effort: Pulmonary effort is normal. No respiratory distress. Breath sounds: Normal breath sounds. No wheezing or rales. Abdominal: General: There is no distension. Palpations: Abdomen is soft. There is no mass. Tenderne (more content not included)... Normal [facility] [id number] 01-02-2025 [facility] [place]. COMMENT Normal . [facility] Comment on above: Order Comment: [id number] Entyvio levels SST RF Result Comment: Test Ordered: [id number] Vedolizumab Drug + Antibody Vedolizumab 17 ug/mL ES Reference Range: . Quantitation Limit: <1.3 ug/mL Results of 1.3 or higher indicate detection of vedolizumab. COMMENTS: - The optimal drug concentration depends upon patient- specific factors including the disease and desired therapeutic endpoint. - The following vedolizumab trough concentration targets have been proposed: > 30.0 ug/mL at week 2 (1) > 24.0 ug/mL at week 6 (1) > 14 ug/mL during maintenance (1) - Mucosal healing in UC was more common in patients with higher week 6 trough levels (>30).(2) - Highest quartile week 6 levels (>35.8) and lowest quartile (<17.2) corresponded to week 52 remission rates of 37% and 15%, respectively.(3) - Patients with Crohn's Disease and Ulcerative Colitis had similar vedolizumab pharmacokinetic data.(4) - This assay measures the antibody-unbound (free) fraction of vedolizumab when serum anti-vedolizumab antibodies are present. Anti-Vedolizumab Antibody <25 ng/mL ES Reference Range: . Quantitation Limit: < 25 ng/mL. Results of 25 or higher indicate detection of anti- vedolizumab antibodies. COMMENTS: - Anti-vedolizumab antibodies developed in about 13% of IBD patients.(5) - Patients with persistently positive anti-vedolizumab antibodies had undetectable or reduced vedolizumab levels.(5) - Anti-drug antibody positivity should be interpreted in the context of the concomitant free drug level. - Serial measurements over time may be helpful. - This anti-vedolizumab antibody assay is drug tolerant, and all positive results are verified for anti-drug antibody specificity by a confirmatory test. References: 1. Drew Esquivel, et al. Clin Gastroenterol Hepatol 2018;16: 1937-46. 2. Rocio M, et al. Inflamm Bowel Dis 2014;20:S1-S3. 3. Amanda MT, et al. Aliment Pharmacol Ther 2019;49: 408-418. 4. Franc JAVIER, et al. BioDrugs 2015;29:57-67. 5. [employer], [employer]: [place] prescribing information. Accessed 30 Mar 2016. These tests were developed and their performance characteristics determined by [employer]. They have not been cleared or approved by the Food and Drug Administration. However, these electrochemiluminescence immunoassay (ECLIA) measurements of vedolizumab and anti-vedolizumab antibody (constituting DoseASSURE VDZ) have been developed and validated in accordance with FDA Guidance document, Assay Development and Validation for Immunogenicity Testing of Therapeutic Protein Products (2019). Performed at: [facility] [address] [place] [id number] Technical Information Specialist: Shraddha Davis MD, Phone: [phone] Performed at: [address] [id number] Technical Information Specialist: Jamin Mcguire PhD, Phone: [phone] Performed By: #### L 100.0100, L101.9900, L501.1010, L501.5948, L501.2400, L501.9520, L501.6710, L3410.9992, L500.4050 #### [facility] [address] [place], [place], [id number] UA DIP, URINE (POC)on 2024 BILIRUBIN UA (POCT) Negative Negative [facility] CLARITY UA (POCT) Cloudy [facility] COLOR UA (POCT) Light yellow [facility] GLUCOSE UA (POCT) Negative Negative mg/dL [facility] Hemoglobin Ql (U) Trace-intact Abnormal Negative [facility] Interpretation and review of laboratory results Abnormal [facility] KETONE UA (POCT) Negative Negative mg/dL [facility] LEUKOCYTES UA (POCT) Small Abnormal Negative [facility] NITRITE UA (POCT) Negative Negative [facility] PH UA (POCT) 7.5 4.5 - 8.0 [facility] Protein Ql (U) Negative Negative mg/dL [facility] SPECIFIC GRAVITY UA (POCT) 1.020 1.005 - 1.030 [facility] UROBILINOGEN UA (POCT) 0.2 Isabella l E.U./dL [facility] Location:[facility], [address] [place] [address], [place], [address] [facility] POINT OF CARE [facility] Absolute lymphocyte countOrd ered By: Rey Alcaraz on 12-21-2024 Lymphocytes Auto (Unsp spec) [#/Vol] 3.10 10*3/uL 0.83-4.51 [facility] Absolute neutrophil countOrd ered By: Rey Alcaraz on 12-21-2024 Neutrophils (Bld) [#/Vol] 5.5 10*3/uL 2.0-7.7 [facility] Amylaseon 12-21-2024 SERA 34 U/L Normal 28-100 [facility] Comment on above: Performed By: #### L 100.0100, L101.9900, L501.2450, L501.9985, L501.2400, L501.9520, L501.6710, L3410.9992, L500.4050 #### [facility] [address] [place], [place], [id number] Anion gap in Serum or Plasma Ordered By: Rey Alcaraz on 12-21-2024 Anion gap [Moles/Vol] 11 mmol/L 5-15 [facility] Automated lymphocyte count a s percentage of total leukocytesOrdered By: Rey Alcaraz on 12-21-2024 Lymphocytes/100 WBC Auto (Unsp spec) 33.9 % 19-41 [facility] BUN/creatinine ratioOrdered By: Rey Alcaraz on 12-21-2024 Urea nitrogen/Creatinine [Mass ratio] 12.7 mg/mg 10- [facility] Basophil percentageOrdered B y: Rey Alcaraz on 12-21-2024 Basophils/100 WBC (Bld) 0.2 % 0-1 [facility] Bilirubin, totalOrdered By: Rey Alcaraz on 12-21-2024 Bilirubin [Mass/Vol] mg/dL 0.00-1.30 [facility] CBC W/Diff, Automatedon 12-08 Absolute Lymph 3.10 X10 3/uL Normal 0.83-4.51 [facility] Comment on above: Performed By: #### L 100.0100, L101.9900, L501.2450, L501.9985, L501.2400, L501.9520, L501.6710, L3410.9992, L500.4050 #### [facility] [address] [place], [place], [id number] Absolute Neut 5.5 X10 3/uL Normal 2.0-7.7 [facility] Comment on above: Performed By: #### L 100.0100, L101.9900, L501.2450, L501.9985, L501.2400, L501.9520, L501.6710, L3410.9992, L500.4050 #### [facility] [address] [place], [address] Basophils/100 WBC (Bld) 0.2 % Normal 0-1 [facility] Comment on above: Performed By: #### L 100.0100, L101.9900, L501.2450, L501.9985, L501.2400, L501.9520, L501.6710, L3410.9992, L500.4050 #### [facility] [address] [place], [address] Eosinophils/100 WBC (Bld) 0.7 % Normal 0-5 [facility] Comment on above: Performed By: #### L 100.0100, L101.9900, L501.2450, L501.9985, L501.2400, L501.9520, L501.6710, L3410.9992, L500.4050 #### [facility] [address] [place], [address] Erythrocyte distribution width (RBC) [Ratio] 12.5 % Normal 11.6-14.6 [facility] Comment on above: Performed By: #### L 100.0100, L101.9900, L501.2450, L501.9985, L501.2400, L501.9520, L501.6710, L3410.9992, L500.4050 #### [facility] [address] [place], [address] Hematocrit (Bld) [Volume fraction] 37.0 % Normal 37-47 [facility] Comment on above: Performed By: #### L 100.0100, L101.9900, L501.2450, L501.9985, L501.2400, L501.9520, L501.6710, L3410.9992, L500.4050 #### [facility] [address] [place], [address] Hemoglobin (Bld) [Mass/Vol] 12.0 g/dL Normal 12.0-15.0 [facility] Comment on above: Performed By: #### L 100.0100, L101.9900, L501.2450, L501.9985, L501.2400, L501.9520, L501.6710, L3410.9992, L500.4050 #### [facility] [address] [place], [address] IG% 0.200 Normal 0.0-0.9 [facility] Comment on above: Result Comment: IG% - Immature Granulocytes (promyelocytes, myelocytes and metamyelocytes) > 1% indicates that a LEFT SHIFT is Present. Performed By: #### L 100.0100, L101.9900, L501.2450, L501.9985, L501.2400, L501.9520, L501.6710, L3410.9992, L500.4050 #### [facility] [address] [place], [address] Lymphocytes/100 WBC (Bld) 33.9 % Normal 19-41 [facility] Comment on above: Performed By: #### L 100.0100, L101.9900, L501.2450, L501.9985, L501.2400, L501.9520, L501.6710, L3410.9992, L500.4050 #### [facility] [address] [facility] [place], [address] MCH (RBC) [Entitic mass] 29.6 pg Normal 27.0-32.0 [facility] Comment on above: Performed By: #### L 100.0100, L101.9900, L501.2450, L501.9985, L501.2400, L501.9520, L501.6710, L3410.9992, L500.4050 #### [facility] [address] [place], [address] MCHC (RBC) [Mass/Vol] 32.4 g/dL Normal 32-36 [facility] Comment on above: Performed By: #### L 100.0100, L101.9900, L501.2450, L501.9985, L501.2400, L501.9520, L501.6710, L3410.9992, L500.4050 #### [facility] [address] [facility] [place], [address] MCV (RBC) [Entitic vol] 91.4 fL Normal 81-99 [facility] Comment on above: Performed By: #### L 100.0100, L101.9900, L501.2450, L501.9985, L501.2400, L501.9520, L501.6710, L3410.9992, L500.4050 #### [facility] [address] [place], [address] Monocytes/100 WBC (Bld) 5.1 % Normal 0-10 [facility] Comment on above: Performed By: #### L 100.0100, L101.9900, L501.2450, L501.9985, L501.2400, L501.9520, L501.6710, L3410.9992, L500.4050 #### [facility] [address] [place], [address] Neutrophils/100 WBC (Bld) 59.9 % Normal 47-70 [facility] Comment on above: Performed By: #### L 100.0100, L101.9900, L501.2450, L501.9985, L501.2400, L501.9520, L501.6710, L3410.9992, L500.4050 #### [facility] [address] [place], [address] Nucleated RBC (Bld) [#/Vol] 0 10*3/uL Normal 0-5 [facility] Comment on above: Performed By: #### L 100.0100, L101.9900, L501.2450, L501.9985, L501.2400, L501.9520, L501.6710, L3410.9992, L500.4050 #### [facility] [address] [place], [address] Platelet mean volume (Bld) [Entitic vol] 9.9 fL Normal 6.2-12.0 [facility] Comment on above: Performed By: #### L 100.0100, L101.9900, L501.2450, L501.9985, L501.2400, L501.9520, L501.6710, L3410.9992, L500.4050 #### [facility] [address] [place], [address] Platelets (Bld) [#/Vol] 314 10*3/uL Normal 150-450 [facility] Comment on above: Performed By: #### L 100.0100, L101.9900, L501.2450, L501.9985, L501.2400, L501.9520, L501.6710, L3410.9992, L500.4050 #### [facility] [address] [place], [address] RBC (Bld) [#/Vol] 4.05 10*6/uL Low 4.2-5.4 [facility] Comment on above: Performed By: #### L 100.0100, L101.9900, L501.2450, L501.9985, L501.2400, L501.9520, L501.6710, L3410.9992, L500.4050 #### [facility] [address] [place], [address] RDW SD 41.8 fl Normal 35.1-43.9 [facility] Comment on above: Performed By: #### L 100.0100, L101.9900, L501.2450, L501.9985, L501.2400, L501.9520, L501.6710, L3410.9992, L500.4050 #### [facility] [address] [place], [address] WBC (Bld) [#/Vol] 9.2 10*3/uL Normal 4.4-11.0 [facility] Comment on above: Performed By: #### L 100.0100, L101.9900, L501.2450, L501.9985, L501.2400, L501.9520, L501.6710, L3410.9992, L500.4050 #### [facility] [address] [place], [address] CRPon 12-21-2024 C-REACTIVE PROT 13.00 mg/L High 0.0-3.0 [facility] Comment on above: Performed By: #### L 100.0100, L101.9900, L501.2450, L501.9985, L501.2400, L501.9520, L501.6710, L3410.9992, L500.4050 #### [facility] [address] [place], [place], [id number] Carbon dioxide, total [Moles /volume] in Central venous bloodOrdered By: Rey Alcaraz on 12-21-2024 CO2 [Moles/Vol] 24.9 mmol/L 21.0-32.0 [facility] Chloride assayOrdered By: Ra logan Alcaraz on 12-21-2024 Chloride [Moles/Vol] 103 mmol/L 98-108 [facility] Comprehensive Metabolic Prof ilon 12-21-2024 Albumin [Mass/Vol] 4.1 g/dL Normal 3.5-5.0 [facility] Comment on above: Performed By: #### L 100.0100, L101.9900, L501.2450, L501.9985, L501.2400, L501.9520, L501.6710, L3410.9992, L500.4050 #### [facility] [address] [place], [address] Albumin/Globulin [Mass ratio] 1.3 {ratio} Normal 0.9-2.4 [facility] Comment on above: Performed By: #### L 100.0100, L101.9900, L501.2450, L501.9985, L501.2400, L501.9520, L501.6710, L3410.9992, L500.4050 #### [facility] [address] [place], [place], [phone] ([phone]) ALK PHOS 86 U/L Normal 35-104 [facility] Comment on above: Performed By: #### L 100.0100, L101.9900, L501.2450, L501.9985, L501.2400, L501.9520, L501.6710, L3410.9992, L500.4050 #### [facility] [address] [place], [place], [phone] (430) ALT [Catalytic activity/Vol] 11 U/L Normal <=34 [facility] Comment on above: Performed By: #### L 100.0100, L101.9900, L501.2450, L501.9985, L501.2400, L501.9520, L501.6710, L3410.9992, L500.4050 #### [facility] [address] [place], [place], [phone] (719) AST [Catalytic activity/Vol] 15 U/L Normal <=31 [facility] Comment on above: Performed By: #### L 100.0100, L101.9900, L501.2450, L501.9985, L501.2400, L501.9520, L501.6710, L3410.9992, L500.4050 #### [facility] [address] [place], [address] BUN/CRE 12.7 RATIO Normal 10-20 [facility] Comment on above: Performed By: #### L 100.0100, L101.9900, L501.2450, L501.9985, L501.2400, L501.9520, L501.6710, L3410.9992, L500.4050 #### [facility] [address] [place], [address] Calcium [Mass/Vol] 9.0 mg/dL Normal 7.6-11.0 [facility] Comment on above: Performed By: #### L 100.0100, L101.9900, L501.2450, L501.9985, L501.2400, L501.9520, L501.6710, L3410.9992, L500.4050 #### [facility] [address] [place], [place], [phone] ([phone] Chloride [Moles/Vol] 103 mmol/L Normal 98-108 [facility] Comment on above: Performed By: #### L 100.0100, L101.9900, L501.2450, L501.9985, L501.2400, L501.9520, L501.6710, L3410.9992, L500.4050 #### [facility] [address] [place], [address] CO2 [Moles/Vol] 24.9 mmol/L Normal 21.0-32.0 [facility] Comment on above: Performed By: #### L 100.0100, L101.9900, L501.2450, L501.9985, L501.2400, L501.9520, L501.6710, L3410.9992, L500.4050 #### [facility] [address] [place], [address] Creatinine [Mass/Vol] 0.88 mg/dL Normal 0.70-1.20 [facility] Comment on above: Performed By: #### L 100.0100, L101.9900, L501.2450, L501.9985, L501.2400, L501.9520, L501.6710, L3410.9992, L500.4050 #### [facility] [address] [place], [address] GAP 11 Normal 5-15 [facility] Comment on above: Performed By: #### L 100.0100, L101.9900, L501.2450, L501.9985, L501.2400, L501.9520, L501.6710, L3410.9992, L500.4050 #### [facility] [address] [place], [address] GFR/1.73 sq M.predicted among non-blacks MDRD (S/P/Bld) [Vol rate/Area] 89 mL/min/{1.73_m2} Normal >60 [facility] Comment on above: Result Comment: mL/m in/1.73m2 CKD-EPI Creatinine Equation (2020) Performed By: #### L 100.0100, L101.9900, L501.2450, L501.9985, L501.2400, L501.9520, L501.6710, L3410.9992, L500.4050 #### [facility] [address] [place], [address] Globulin (S) [Mass/Vol] 3.1 g/dL Normal 2.2-4.2 [facility] Comment on above: Performed By: #### L 100.0100, L101.9900, L501.2450, L501.9985, L501.2400, L501.9520, L501.6710, L3410.9992, L500.4050 #### [facility] [address] [place], [address] Glucose [Mass/Vol] 99 mg/dL Normal 70-99 [facility] Comment on above: Performed By: #### L 100.0100, L101.9900, L501.2450, L501.9985, L501.2400, L501.9520, L501.6710, L3410.9992, L500.4050 #### [facility] [address] [place], [address] Potassium [Moles/Vol] 4.2 mmol/L Normal 3.3-5.1 [facility] Comment on above: Result Comment: Hemo lysis present, Results??could be affected. ?? Performed By: #### L 100.0100, L101.9900, L501.2450, L501.9985, L501.2400, L501.9520, L501.6710, L3410.9992, L500.4050 #### [facility] [address] [place], [address] Sodium [Moles/Vol] 139 mmol/L Normal 133-145 [facility] Comment on above: Performed By: #### L 100.0100, L101.9900, L501.2450, L501.9985, L501.2400, L501.9520, L501.6710, L3410.9992, L500.4050 #### [facility] [address] [place], [address] T BILI < 0.15 Normal 0.00-1.30 [facility] Comment on above: Performed By: #### L 100.0100, L101.9900, L501.2450, L501.9985, L501.2400, L501.9520, L501.6710, L3410.9992, L500.4050 #### [facility] [address] [place], [address] T PROT 7.1 g/dL Normal 5.9-8.4 [facility] Comment on above: Performed By: #### L 100.0100, L101.9900, L501.2450, L501.9985, L501.2400, L501.9520, L501.6710, L3410.9992, L500.4050 #### [facility] [address] [place], [place], [id number] Urea nitrogen [Mass/Vol] 11 mg/dL Normal 4-19 [facility] Comment on above: Performed By: #### L 100.0100, L101.9900, L501.2450, L501.9985, L501.2400, L501.9520, L501.6710, L3410.9992, L500.4050 #### [facility] [address] [place], [address] Eosinophil percentageOrdered By: Rey Alcaraz on 12-21-2024 Eosinophils/100 WBC (Bld) 0.7 % 0-5 [facility] Erythrocyte Sed Rateon 12-21 SED RATE 15 mm/hr Normal 0-30 [facility] Comment on above: Performed By: #### L 100.0100, L101.9900, L501.2450, L501.9985, L501.2400, L501.9520, L501.6710, L3410.9992, L500.4050 #### [facility] [address] [place], [place], [id number] Erythrocyte distribution wid th ratioOrdered By: Rey Alcaraz on 12-21-2024 Erythrocyte distribution width (RBC) [Ratio] 12.5 % 11.6-14.6 [facility] Erythrocyte distribution wid th standard deviationOrdered By: Rey Alcaraz on 12-21-2024 Erythrocyte distribution width (RBC) [Ratio] 41.8 fl 35.1-43.9 [facility] Erythrocyte sedimentation ra teOrdered By: Rey Alcaraz on 12-21-2024 ESR (Bld) [Velocity] 15 mm/h 0-30 [facility] Glomerular filtration rate ( GFR) estimation/1.73 sq m using serum, plasma, or whole bOrdered By: Rey Alcaraz on 12-21-2024 GFR/1.73 sq M.predicted among non-blacks MDRD (S/P/Bld) [Vol rate/Area] 89 mL/min/{1.73_m2} >60 [facility] Comment on above: mL/min/1.73m2 CKD-EP I Creatinine Equation (2020) Hematocrit Auto (Bld) [Volum e fraction]Ordered By: Rey Alcaraz on 12-21-2024 Hematocrit (Bld) [Volume fraction] 37.0 % 37-47 [facility] Hemoglobin A1con 12-21-2024 HbA1c (Bld) [Mass fraction] 5.3 % Normal <=5.6 [facility] Comment on above: Result Comment: Norm al < 5.7 % Prediabetic 5.7 - 6.4 % Diabetic >or= 6.5 % Please note range changes. Performed By: #### L 100.0100, L101.9900, L501.2450, L501.9985, L501.2400, L501.9520, L501.6710, L3410.9992, L500.4050 #### [facility] [address] [place] [address]. [place], [address] Hemoglobin A1c percentageOrd ered By: Rey Alcaraz on 12-21-2024 HbA1c (Bld) [Mass fraction] 5.3 % <5.7 [facility] Comment on above: Normal < 5.7 % Predi abetic 5.7 - 6.4 % Diabetic >or= 6.5 % Please note range changes. Hemoglobin measurementOrdere d By: Rey Alcaraz on 12-21-2024 Hemoglobin (Bld) [Mass/Vol] 12.0 g/dL 12.0-15.0 [facility] Immature granulocytes/100 WB C Auto (Bld)Ordered By: Rey Alcaraz on 12-21-2024 Immature granulocytes/100 WBC (Bld) 0.200 % 0.0-0.9 [facility] Comment on above: IG% - Immature Granu locytes (promyelocytes, myelocytes and metamyelocytes) > 1% indicates that a LEFT SHIFT is Present. Laboratory - Chemistry and C hemistry - challengeOrdered By: Rey Alcaraz on 12-21-2024 AST [Catalytic activity/Vol] 15 U/L <32 [facility] Lipaseon 12-21-2024 Lipase [Catalytic activity/Vol] 29 U/L Normal 13-75 [facility] Comment on above: Result Comment: Naomi villalba note: LIPASE revised reference range effective 22. New Lipase methodology. Expected to produce lower values than the previous assay method. NEW Reference Range: 13 - 75 U/L Performed By: #### L 100.0100, L101.9900, L501.2450, L501.9985, L501.2400, L501.9520, L501.6710, L3410.9992, L500.4050 #### [facility] [address] [place], [address] Lipase measurementOrdered By : Rey Alcaraz on 12-21-2024 Lipase [Catalytic activity/Vol] 29 U/L 13-75 [facility] Comment on above: Please note:LIPASE r evised reference range effective 22. New Lipase methodology. Expected to produce lower values than the previous assay method. NEW Reference Range: 13 - 75 U/L MCV (mean corpuscular volume ) determinationOrdered By: Rey Alcaraz on 12-21-2024 MCV (RBC) [Entitic vol] 91.4 fL 81-99 [facility] Mean corpuscular hemoglobin (MCH) determinationOrdered By: Rey Alcaraz on 12-21-2024 MCH (RBC) [Entitic mass] 29.6 pg 27.0-32.0 [facility] Mean corpuscular hemoglobin concentration (MCHC) determinationOrdered By: Rey Alcaraz on 12-21-2024 MCHC (RBC) [Mass/Vol] 32.4 g/dL 32-36 [facility] Mean platelet volume determi nationOrdered By: Rey Alcaraz on 12-21-2024 Platelet mean volume (Bld) [Entitic vol] 9.9 fL 6.2-12.0 [facility] Monocyte percentageOrdered B y: Rey Alcaraz on 12-21-2024 Monocytes/100 WBC (Bld) 5.1 % 0-10 [facility] Neutrophil percentageOrdered By: Rey Alcaraz on 12-21-2024 Neutrophils/100 WBC (Bld) 59.9 % 47-70 [facility] Nucleated red blood cell per centageOrdered By: Rey Alcaraz on 12-21-2024 Nucleated RBC/100 WBC (Bld) [Ratio] 0 % 0-5 [facility] Platelet countOrdered By: Ra logan Alcaraz on 12-21-2024 Platelets (Bld) [#/Vol] 314 10*3/uL 150-450 [facility] Potassium measurement (mass/ volume)Ordered By: Rey Alcaraz on 12-21-2024 Potassium (Unsp spec) [Mass/Vol] 4.2 mmol/L 3.3-5.1 [facility] Comment on above: Hemolysis present, R esults could be affected. RBC Auto (Bld) [#/Vol]Ordere d By: Rey Alcaraz on 12-21-2024 RBC (Bld) [#/Vol] 4.05 10*6/uL Low 4.2-5.4 [facility] Serum creatinine measurement (mass/volume)Ordered By: Rey Alcaraz on 12-21-2024 Creatinine [Mass/Vol] 0.88 mg/dL 0.70-1.20 [facility] Serum globulin measurementOr dered By: Rey Alcaraz on 12-21-2024 Globulin (S) [Mass/Vol] 3.1 g/dL 2.2-4.2 [facility] Serum glucose measurement (m ass/volume)Ordered By: Rey Alcaraz on 12-21-2024 Glucose [Mass/Vol] 99 mg/dL 70-99 [facility] Serum or plasma C reactive p rotein measurement (mass/volume)Ordered By: Rey Alcaraz on 12-21-2024 CRP [Mass/Vol] 13.00 mg/L High 0.0-3.0 [facility] Serum or plasma alanine leon otransferase (ALT) measurementOrdered By: Rey Alcaraz on 12-21-2024 ALT [Catalytic activity/Vol] 11 U/L <35 [facility] Serum or plasma albumin gera urement (mass/volume)Ordered By: Rey Alcaraz on 12-21-2024 Albumin [Mass/Vol] 4.1 g/dL 3.5-5.0 [facility] Serum or plasma albumin/glob ulin mass ratioOrdered By: Rey Alcaraz on 12-21-2024 Albumin/Globulin [Mass ratio] 1.3 {ratio} 0.9-2.4 [facility] Serum or plasma alkaline andre sphatase measurementOrdered By: Rey Alcaraz on 12-21-2024 ALP [Catalytic activity/Vol] 86 U/L 35-104 [facility] Serum or plasma amylase gera urement (enzymatic activity/volume)Ordered By: Rey Alcaraz on 12-21-2024 Amylase [Catalytic activity/Vol] 34 U/L 28-100 [facility] Serum or plasma calcium gera urement (mass/volume)Ordered By: Rey Alcaraz on 12-21-2024 Calcium [Mass/Vol] 9.0 mg/dL 7.6-11.0 [facility] Serum or plasma urea nitroge n measurement (mass/volume)Ordered By: Rey Alcaraz on 12-21-2024 Urea nitrogen [Mass/Vol] 11 mg/dL 4-19 [facility] Sodium levelOrdered By: Rudy Noguera on 12-21-2024 Sodium [Moles/Vol] 139 mmol/L 133-145 [facility] TSH DL <= 0.005 mIU/L QnOrde red By: Rey Alcaraz on 12-21-2024 TSH Qn 1.590 uIU/mL 0.300-4.20 0 [facility] Thyroid Stim Hormone (TSH)on 12-21-2024 TSH 1.590 uIU/mL Normal 0.300-4.20 0 [facility] Comment on above: Performed By: #### L 100.0100, L101.9900, L501.2450, L501.9985, L501.2400, L501.9520, L501.6710, L3410.9992, L500.4050 #### [facility] Laboratory [facility] [place], [address] Total proteinOrdered By: Henrique Alcaraz on 12-21-2024 Protein [Mass/Vol] 7.1 g/dL 5.9-8.4 [facility] White blood cell (WBC) count Ordered By: eRy Alcaraz on 12-21-2024 WBC (Bld) [#/Vol] 9.2 10*3/uL 4.4-11.0 [facility] CNOVon 11-21-2024 CNOV Office Visit ([facility]) ----- SENGAUSTINMARY Alba ([id number]) 1990 F Date Time Provider Department 11/21/24 2:30 PM RAVINDER MIRANDA During your visit today, we recorded the following information about you: Temperature Pulse Respiration Blood pressure 98.6 degrees 80/minute 18/minute 102/76 Weight Last Period 89 kg 11/02/24 Ravinder Miranda MD 11/21/2024 3:18 PM Signed [facility] Subjective Maryyaya Guillen is a 34 year old female. Patient presents with: Knee Pain: Left knee pain, in patella area, no injury noted, x 2 weeks Swelling some and warmth in area Pt here with 2 week hx of left patellar area pain off and on now pain worse and localized to anterior tib area and lower patellar area feels there may be some warmth no injury no limits to rOM Review of Systems Constitutional: Negative for chills, fatigue and fever. Musculoskeletal: Positive for arthralgias and myalgias. Negative for joint swelling. Skin: Negative for rash and wound. Neurological: Negative for weakness and numbness. Objective BP 102/76 Pulse 80 Temp 37 ?C (98.6 ?F) Resp 18 Wt 89 kg (196 lb 3.4 oz) LMP 11/02/2024 (Approximate) SpO2 96% BMI 34.77 kg/m? Physical Exam Vitals and nursing note reviewed. Constitutional: Appearance: Normal appearance. She is not ill-appearing. Cardiovascular: Pulses: Normal pulses. Musculoskeletal: General: Tenderness present. No swelling or deformity. Normal range of motion. Right lower leg: No edema. Left lower leg: No edema. Comments: No swelling identified in knee ROM ok Skin: Capillary Refill: Capillary refill takes less than 2 seconds. Findings: No erythema or rash. Comments: Minimal to no warmth inarea compared to right knee no redness Neurological: Mental Status: She is alert and oriented to person, place, and time. Cranial Nerves: No cranial nerve deficit. Sensory: No sensory deficit. Coordination: Coordination normal. Deep Tendon Reflexes: Reflexes normal. {ASSESSMENT/PLAN: 1. Acute pain of left knee - ICD9: 719.46, ICD10: M25.562 Due to pt concern will treat for a superficial skin infection and also with nsaids If any worse will go to the ED - XR KNEE LIMITED 2V AP/LAT LEFT Ravinder Miranda MD Differential Diagnoses - skin infection is more likely for the following reason(s): suggested by HANDP - knee sprain is less likely for the following reason(s): HANDP not suggestive and no evidence on imaging Disposition The patient was discharged. Procedures Ravinder Miranda MD 11/21/2024 3:17 PM Signed RETURN HERE IF ANY CONCERNS Allergies As of Date: 11/21/2024 Noted Allergy Reaction MORPHINE 12/26/2020 2 - Rash 8 - GI Upset SUDAFED (PSEUDOEPHEDRINE HCL) 11/13/2014 5 - Intolerance Comments: heart palpations and loopy Date Reviewed: 11/21/2024 Reviewed by: Shauna Pedro LPN - Fully Assessed Reason for Visit: Knee Pain [132] Cmt: Left knee pain, in patella area, no injury noted, x 2 weeks Swelling some and warmth in area Primary Visit Diagnosis:Acute pain of left knee [M25.562] Order(s):XR KNEE LIMITED 2V AP/LAT LEFT [[id number]] Order #: [id number]. #:[id number] cephALEXin (KEFLEX) 500 mg capsuleTake 1 capsule by mouth four times daily for 7 days.Disp: 28 capsuleRfl: 0 diclofenac (VOLTAREN) 1 % topical gelApply 2 g to affected area three times a day as needed for up to 7 days.Disp: 42 gRfl: 0 Prescriptions as of 11/21/2024 - cholecalciferol, vitamin D3, 10 mcg (400 unit) cap Take 400 Units by mouth once daily. - cephALEXin (KEFLEX) 500 mg capsule Take 1 capsule by mouth four times daily for 7 days. - diclofenac (VOLTAREN) 1 % topical gel Apply 2 g to affected area three times a day as needed for up to 7 days. - albuterol (PROVENTIL) 2.5 mg /3 mL (0.083 %) nebulizer solution Use 3 mL via nebulizer every 4 hours as needed for wheezing/shortness of breath. - benzonatate (TESSALON PERLE) 100 mg capsule Take 1 capsule by mouth three times a day as needed. - Nebulizer and Compressor For Neb 1 Each as needed. - albuterol HFA (PROVENTIL HFA, VENTOLIN HFA) 90 mcg/actuation inhaler Inhale 2 Puffs as instructed every 4 hours as needed for wheezing/shortness of breath. - STELARA 90 mg/mL injection 90 mg every 8 weeks. - albuterol HFA (PROAIR HFA) 90 mcg/actuation inhaler Inhale 2 Puffs as instructed every 6 hours as needed. - Mesalamine (PENTASA) 500 mg CR capsule Take 2 capsules by mouth four times daily. - dicyclomine (BENTYL) 10 mg capsule Take 1 capsule by mouth three times daily as needed (for abdominal pain). - budesonide, enteric coated (ENTOCORT EC) 3 mg 24 hr capsule take 3 capsules by mouth once daily for 30 DAYS, THEN DECREASE TO... (REFER TO PRESCRIPTION NOTES). - SLOW RELEASE IRON 142 mg (45 mg iron) TbER Take 45 mg by mouth twice daily with meals. - albuterol HFA (PROVENTIL HFA, V (more content not included)... Normal [facility] XR KNEE 2V AP/LAT LTon 11-21 XR KNEE 2V AP/LAT LT * * *Final Report* * * DATE OF EXAM: Nov 21 2024 3:04PM WOX 5206 - XR KNEE 2V AP/LAT LT / PROCEDURE REASON: Acute pain of left knee * * * * Physician Interpretation * * * * EXAM TITLE: XR KNEE 2V AP/LAT LT EXAM DATE/TIME: 11/21/2024 3:04 PM COMPARISON: None. CLINICAL INDICATION/HISTORY: Acute left knee pain. TECHNIQUE: AP and lateral views of the left knee are presented. FINDINGS: No fractures or subluxations are noted. Tiny bony spur seen along the posterior aspect of the patella. The joint spaces are well preserved. There is no evidence of joint effusion. The mineralization of the bones is normal. There is no significant soft tissue swelling. IMPRESSION: Mild degenerative changes in the left knee. Scientologist: ERI Transcribe Date/Time: Nov 21 2024 3:05P Dictated by : ALEE ALMAZAN MD This examination was interpreted and the report reviewed and electronically signed by: ALEE ALMAZAN MD on Nov 21 2024 3:07PM EST [id number] Normal [facility] XR Knee - left AP and Latera georgina 11-21-2024 IMPRESSION: Mild degenerative changes in the left knee. Scientologist: ERI Transcribe Date/Time: Nov 21 2024 3:05P Dictated by : ALEE ALMAZAN MD This examination was interpreted and the report reviewed and electronically signed by: ALEE ALMAZAN MD on Nov 21 2024 3:07PM EST DIVISION OF RADIOLOGY * * *Final Report* * * DATE OF EXAM: Nov 21 2024 3:04PM WOX 5206 - XR KNEE 2V AP/LAT LT / PROCEDURE REASON: Acute pain of left knee * * * * Physician Interpretation * * * * EXAM TITLE: XR KNEE 2V AP/LAT LT EXAM DATE/TIME: 11/21/2024 3:04 PM COMPARISON: None. CLINICAL INDICATION/HISTORY: Acute left knee pain. TECHNIQUE: AP and lateral views of the left knee are presented. FINDINGS: No fractures or subluxations are noted. Tiny bony spur seen along the posterior aspect of the patella. The joint spaces are well preserved. There is no evidence of joint effusion. The mineralization of the bones is normal. There is no significant soft tissue swelling. DIVISION OF RADIOLOGY Provider, Reyna Nando Barrera - 11/21/2024 * * *Final Report* * * DATE OF EXAM: Nov 21 2024 3:04PM WOX 5206 - XR KNEE 2V AP/LAT LT / PROCEDURE REASON: Acute pain of left knee * * * * Physician Interpretation * * * * EXAM TITLE: XR KNEE 2V AP/LAT LT EXAM DATE/TIME: 11/21/2024 3:04 PM COMPARISON: None. CLINICAL INDICATION/HISTORY: Acute left knee pain. TECHNIQUE: AP and lateral views of the left knee are presented. FINDINGS: No fractures or subluxations are noted. Tiny bony spur seen along the posterior aspect of the patella. The joint spaces are well preserved. There is no evidence of joint effusion. The mineralization of the bones is normal. There is no significant soft tissue swelling. IMPRESSION IMPRESSION: Mild degenerative changes in the left knee. Scientologist: PSCB Transcribe Date/Time: Nov 21 2024 3:05P Dictated by : ALEE ALMAZAN MD This examination was interpreted and the report reviewed and electronically signed by: ALEE ALMAZAN MD on Nov 21 2024 3:07PM EST [facility] Radiology Study observation (narrative) [facility] XR Knee - left AP and Latera lOrdered By: [facility] Provider on 11-21-2024 [facility] Abdomen/Pelvis WITH Contrast on 09-14-2024 Abdomen/Pelvis WITH Contrast [facility] Imaging Services [address] [place] [id number] Abdomen/Pelvis WITH Contrast MR#: [id number] Acct: [id number] Name: MARY GUILLEN Rep #: [id number] : 1990 F 34 From: Almita velasco MD PCP: Dr. Drake Whiting, DO Status: REG CLI Study: Abdomen/Pelvis WITH Contrast Date of Exam: 01/01 Exam# [id number] Ordering Dr: Rey Alcaraz DO PROCEDURE: ABDOMEN/PELVIS WITH CONTRAST 09/15/2024 REASON FOR EXAM: CROHN'S DISEASE AND ABD PAIN TECHNIQUE: Abdomen and pelvis CT with intravenous contrast. Coronal and Sagittal reconstruction series were provided. One or more dose reduction techniques were used (e.g., Automated exposure control, adjustment of the mA and/or kV according to patient size, use of iterative reconstruction technique. RADIATION DOSE SUMMARY: CTDlvol: mGy DLP: mGycm COMPARISON: 04-16-2023 FINDINGS: Average sized liver showing homogenous parenchymal attenuation Prominent extra-hepatic biliary tracts. Cholecystectomy. Normal appearance of the pancreas with clear surrounding fat planes. The spleen, adrenal glands, aorta and IVC are unremarkable. Both kidneys are of average size and showing smooth outline with preserved parenchymal thickness. No renal calculi. No hydronephrosis. Under distension of the urinary bladder showing uniform mural thickening with no obvious masses. No obvious masses related to the pelvic viscera. The appendix appears unremarkable. No right iliac inflammatory changes. Colonic diverticulosis. No diverticulitis. The small bowel loops are unremarkable. The stomach is unremarkable. Small fat containing umbilical hernia No ascites or free air. No obvious pathologically enlarged lymph nodes. Scanned osseous structures show no osseous destruction. Scanned lung bases show no obvious abnormalities. CT/Abdomen/Pelvis WITH Contrast IMPRESSION: Stable study findings as detailed. No acute pelvi-abdominal abnormalities, collections or free air. OVERALL FINAL ASSESSMENT: . LI-RADS is not meant to be used in patients <18 years or patients with cirrhosis due to congenital hepatic fibrosis or due to vascular disorders, because these patients have a lower chance of developing HCC. Reading Location: [place] [address] CC: Dr. Drake Whiting, ; Rey Alcaraz, Scientologist: Signed Normal [facility] Office Visit Reporton 2024 Office Visit Report [facility] [address] [place] [address] OFFICE VISIT Date of Service: 09/06/24 MR#: [id number] Acct: [id number] Patient: MARY GUILLEN Rep #: [id number] : 1990 Provider: Cristy michel Age/Sex: 34/F Location: [facility] Status: Signed Intake Vital Signs 04/03/24 07:03 Height 5 ft 2 in Intake Visit Reasons: injection Chief Complaint: Right ear pain Allergies morphine Adverse Reaction (Verified 04/03/24 07:03) Vomiting pseudoephedrine HCl (From Sudafed) Adverse Reaction (Verified 04/03/24 07:03) Vomiting Nurse's Note: Lot #[id number] Expiration 11/2026 Office Procedures Injections stelara: Procedure performed by: Shayna Anaya Site of injection: Sub-Q (right ventro gluteal ) 09/06/24 1554 Date Rey Friend DO Jayant Signature: Date (if applicable) CC: Normal [facility] Gastroenterology Visit Repor ton 09-04-2024 Gastroenterology Visit Report [facility]astroenter[facility] [address] [place] [place] [address] OFFICE VISIT Date of Service: 09/04/24 MR#: [id number] Acct: [id number] Name: MARY GUILLEN Rep #: [id number] : 1990 Provider: Rey Alcaraz DO Age/Sex: 34/F Location: [place] Status: Signed Intake Vital Signs 04/03/24 07:03 Height 5 ft 2 in Intake Visit Reasons: 6 M FU Allergies morphine Adverse Reaction (Verified 04/03/24 07:03) Vomiting pseudoephedrine HCl (From Sudafed) Adverse Reaction (Verified 04/03/24 07:03) Vomiting Medications ???Medication ???Instructions ???Recorded ???Confirmed ???Type cholecalciferol (vitamin D3) 10 10 mcg PO DAILY 12/22/20 09/04/24 History mcg (400 unit) capsule (Vitamin D3) albuterol sulfate 90 mcg/actuation 1 - 2 inh inhalation PRN PRN AST HMA 01/08/22 09/04/24 History aerosol inhaler dicyclomine 10 mg capsule 10 mg PO PRN PRN ABD PAIN 01/08/22 09/04/24 History ferrous sulfate 142 mg (45 mg 45 mg PO BID 01/08/22 09/04/24 His tory iron) tablet,extended release (Slow Release Iron) ustekinumab 130 mg/26 mL 390 mg (78 mL) IV ONCE 05/13/23 Rx intravenous solution (Stelara) lansoprazole 30 mg capsule,delayed 30 mg PO DAILY PRN GERD 02/28/24 09/04/24 History release ustekinumab 90 mg/mL subcutaneous See Rx Instructions .Route 09/04/24 Rx syringe (Stelara) .COMPLEX #1 mL PFSH Medical History Easy bruising History of ulceration Heartburn Gastric reflux Periumbilical hernia IFG (impaired fasting glucose) Anemia History of Crohn's disease Non-smoker Hx of fracture of leg Encounter for screening for COVID-19 Acute conjunctivitis, right eye Acute sinusitis, unspecified Asthma Surgical History History of hernia surgery History of tubal ligation History of ear surgery Hx laparoscopic cholecystectomy Social History Smoking Status: Never smoker alcohol intake: never HPI HPI Details: MARY GUILLEN, is a 34 F who presents to the office today for follow up. [facility] established for management of Crohn???s disease. LV 12.03.21 indicates???Pentasa QID and entocort taper???started with improvement of bowel irregularity.???Start Remicade infusions???following biochemical and tubal ligation 01.15.22?EGD and colonoscopy 07.23.21???records requested from [facility]. OV indicates stricture.?CT enterography 08.15.21???mild circumferential hyperenhancement of TI with narrowing of distal TI, caliber 6mm? 09.26.22/02.01.23 requested egd/colon and gi records??? OV 02.22.23 Pt previously seeing GI in [place]. Would like to establish here due to distance. moderately controlled with Remicaide, Pentasa and as needed Dicyclomine. Still has some abdominal pain and diarrhea. Adjusting diet does help. Sx get worse leading up to next infusion. OV 08.20.23 Pt reports minimal symptoms or concerns. Pt is taking dicyclomine, Stelara, Vitamin D, and sucralfate. Pt states that she has small amount of blood in her stool, maybe once a week, if she has to strain. OV 02.28.24 pt reports that she is feeling well overall and denies GI symptoms of concern at this time. Pt reports 2-3 bm per day; reports occasional blood in her stool due to straining. Continues with suppositories, budesonide, and Stelara, last injection was 01.18.24. EGD 04.03.24 Esophageal mucosal changes secondary to eosinophilic esophagitis. Dilated. A large amount of food (residue) in the stomach. No gross lesions in the duodenal bulb. Biopsies were taken with a cold forceps for evaluation of eosinophilic esophagitis. OV 09.04.24 pt denies GI symptoms of concern at this time. Continues with Stelara Q8W. ESR / CRP Calp / Lact Serum / AB 7. 7 / 13.4 -- / -- 0.7 / neg 4. 19 / 14.8 -- / -- 1.8 / neg ROS Const Constitutional: No fatigue, fever(s) or weight change ENT ENT: No difficulty swallowing Gastro GI: No abdominal pain, belching, bloating, change in bowel habits, change in stool character, coffee ground emesis, constipation, cramping, diarrhea, heartburn, difficulty swallowing, feeling full e kirstie, excessive flatus, incontinent of stools, Vomiting blood/hematemesis, Blood in stool, loose stools, Black,tarry stools, nausea/dyspepsia, pain with swallowing, vomiting or other Musc Musculoskeletal: No joint pain Skin Skin: No yellowing of the eye or itchy eyes Psych Psychiatric: No anxiety and No depression Endo Endocrine: No fatigue or weight change Aller/Imm Allergy/Immunologic: No itchy eyes Estevan/Lymp Hematologic/Lymphatic: (more content not included)... Normal [facility] Misc.on 09-01-2024 [facility] Misc. 4 COMMENT Normal . [facility] Comment on above: Order Comment: Scann ed image report available in [id number] SERUM FZ Result Comment: Test Ordered: [id number] Ustekinumab Drug + Antibody Ustekinumab 1.8 ug/mL ES Reference Range: . Quantitation Limit: <0.1 ug/mL Results of 0.1 ug/mL or higher indicate detection of ustekinumab. COMMENTS: - Induction levels in Crohn's Disease: - Patients who received IV 130 mg or 6 mg/kg had median trough concentrations of 2.1 ug/mL and 6.4 ug/mL, respectively, at week 8 in UNITI trials.(1) - Maintenance levels: - Of UNITI patients with trough levels greater than 1.1 ug/mL, about 80% achieved clinical remission (HBI < 5) and about 50% attained CRP normalization.(2) - Higher maintenance concentrations, greater than 4.5 ug/mL (achieved with q8wk or q4wk dosing after SQ induction), may be necessary for endoscopic response (SES-CD score reduction >=50%).(3) - Trough levels predictive of mucosal healing and fistula healing have yet to be determined. - In plaque psoriasis, median trough ustekinumab concentrations were 0.4 ug/mL at weeks 14 and 28 (ranging from undetectable to 3.6 ug/mL).(4) Although PASI50 responders had higher trough concentrations than non- responders in a study of 76 patients, a definitive therapeutic target range for psoriasis has yet to be established.(5) - As with other biologics, the optimal drug concentration depends upon patient-specific factors including co- morbidities, disease and desired therapeutic endpoint - This ustekinumab drug assay measures the free fraction of ustekinumab (antibody-unbound ustekinumab) when serum anti-ustekinumab antibodies are present. Anti-Ustekinumab Antibody <40 ng/mL ES Reference Range: . Quantitation Limit: < 40 ng/mL Results of 40 ng/mL or higher indicate detection of anti- ustekinumab antibodies. COMMENTS: - This anti-ustekinumab antibody assay is drug-tolerant, i.e. the detection of anti-ustekinumab antibodies is not impeded by the presence of ustekinumab in serum. - All positive anti-ustekinumab antibody results are verified by a confirmatory test. - The concomitant free ustekinumab drug concentration (reported above) is the pharmacodynamically active drug when anti-ustekinumab antibodies are present. - Serial measurements over time may be helpful to assess the impact of immunogenicity on the free drug level. - In the IM-UNITI trial, the incidence of anti-ustekinumab antibodies in Crohn's Disease at 1 year was 2.3%.(1) - In psoriasis, anti-ustekinumab antibodies occurred in 4-6% of patients.(6) References: 1. Sandra ALDRIDGE, et al. Gastroenterology 2016;150(4):S408. 2. Sandra Rocha et al. P007 Exposure-Response to SC Ustekinumab in Moderate - Severe Crohn's Disease: Results from the IM-UNITI Maintenance Study. Advances in AIBD. February 2017. 3. Mesfin R, et al. Clin Gastroenterol Hepatol 2017;15: 5044-9016. 4. Douglas SP, et al. Br J Dermatol;2015:173;855-857. 5. Dimitris H, et al. PLOS ONE DOI;10:1371/journal.pone.3322269. 6. Aixa L, et al. Br J Dermatol 2014;170:261-273. These tests were developed and their performance characteristics determined by [facility]. They have not been cleared or approved by the Food and Drug Administration. However, both drug and anti-drug antibody assays have been developed and validated in accordance with FDA Guidance for Industry documents: Bioanalytical Method Validation (2013) and Assay Development and Validation for Immunogenicity Testing of Therapeutic Protein Products (2016). Performed at: [facility] [address] [place] [id number] Technical Information Specialist: Liam Weinberg MD, Phone: [phone] Performed at: [address] [id number] Technical Information Specialist: Jamin Mcguire PhD, Phone: [phone]. AMENDED REPORT 09/01/24 075 [facility] Misc.4 previously reported as: COMMENT Test Ordered: [id number] Ustekinumab Drug + Antibody Ustekinumab 1.8 ug/mL Reference Range: . Quantitation Limit: <0.1 ug/mL Results of 0.1 ug/mL or higher indicate detection of ustekinumab. COMMENTS: - Induction levels in Crohn's Disease: - Patients who received IV 130 mg or 6 mg/kg had median trough concentrations of 2.1 ug/mL and 6.4 ug/mL, respectively, at week 8 in UNITI trials.(1) - Maintenance levels: - Of UNITI patients with trough levels greater than 1.1 ug/mL, about 80% achieved clinical remission (HBI < 5) and about 50% attained CRP normalization.(2) - Higher maintenance concentrations, greater than 4.5 ug/mL (achieved with q8wk or q4wk dosing after SQ induction), may be necessary for endoscopic response (SES-CD score reduction >=50%).(3) - Trough levels predictive of mucosal healing and fistula healing have yet to be determined. - In plaque psoriasis, median trough ustekinumab concentrations were 0.4 ug/mL at weeks 14 and 28 (ranging from undetectable to 3.6 ug/mL).(4) Although PASI50 responders had higher trough concentrations than non- responders in a study of 76 patients, a defini (more content not included)... Performed By: #### L 100.0100, L101.9900, L501.2450, L501.9985, L501.2400, L501.9520, L501.6710, L3410.9992, L500.4050 #### [facility] [address] [place], [address] CRPon 08-23-2024 C-REACTIVE PROT 14.80 mg/L High 0.0-3.0 [facility] Comment on above: Performed By: #### L 100.0100, L101.9900, L501.2450, L501.9985, L501.2400, L501.9520, L501.6710, L3410.9992, L500.4050 #### [facility] [address] [place], [place], [id number] Erythrocyte Sed Rateon 08-23 SED RATE 19 mm/hr Normal 0-30 [facility] Comment on above: Performed By: #### L 100.0100, L101.9900, L501.2450, L501.9985, L501.2400, L501.9520, L501.6710, L3410.9992, L500.4050 #### [facility] [address] [place], [place], [id number] Erythrocyte sedimentation ra teOrdered By: Rey Alcaraz on 08-23-2024 ESR (Bld) [Velocity] 19 mm/h 0-30 [facility] Serum or plasma C reactive p rotein measurement (mass/volume)Ordered By: Rey Alcaraz on 08-23-2024 CRP [Mass/Vol] 14.80 mg/L High 0.0-3.0 [facility] 25(OH)D3 SerPl-mCncon 2024 25-hydroxyvitamin D3 [Mass/Vol] 26.0 ng/mL Low 31.0-80.0 [facility] Comment on above: Order Comment: Speci men Type: BLOOD SPECIMENOrdering Facility: [facility] Address: [address] [place] [address] Performed By: #### 1 989-3 ####[facility] LABCLIA [id number] [place] [address] [place] CBC panel Auto (Bld)on 07-10 Erythrocyte distribution width (RBC) [Ratio] 12.5 % Normal 11.5-15.0 [facility] Comment on above: Order Comment: Speci men Type: BLOOD SPECIMENOrdering Facility: [facility] Address: [address] [place] [address] Performed By: #### 5 8410-2 ####[facility] [id number] [place] [address] [place] Hematocrit (Bld) [Volume fraction] 36.5 % Normal 36.0-46.0 [facility] Comment on above: Order Comment: Speci men Type: BLOOD SPECIMENOrdering Facility: [facility] Address: [address] [place] [address] Performed By: #### 5 8410-2 ####[facility] [id number] [place] [address] [place] Hemoglobin (Bld) [Mass/Vol] 12.0 g/dL Normal 11.5-15.5 [facility] Comment on above: Order Comment: Speci men Type: BLOOD SPECIMENOrdering Facility: [facility] Address: [address] [place] [address] Performed By: #### 5 8410-2 ####[facility] [id number] [place] [address] [place] MCH (RBC) [Entitic mass] 29.9 pg Normal 26.0-34.0 [facility] Comment on above: Order Comment: Speci men Type: BLOOD SPECIMENOrdering Facility: [facility] Address: [address] [place] [address] Performed By: #### 5 8410-2 ####[facility] [id number] [place] [address] [place] MCHC (RBC) [Mass/Vol] 32.9 g/dL Normal 30.5-36.0 [facility] Comment on above: Order Comment: Speci men Type: BLOOD SPECIMENOrdering Facility: [facility] Address: [address] [place] [address] Performed By: #### 5 8410-2 ####[facility] [id number] [place] [address] [place] MCV (RBC) [Entitic vol] 90.8 fL Normal 80.0-100.0 [facility] Comment on above: Order Comment: Speci men Type: BLOOD SPECIMENOrdering Facility: [facility] Address: [address] [place] [address] Performed By: #### 5 8410-2 ####[facility]CL[facility] [id number] [place] [address] [place] Nucleated RBC (Bld) [#/Vol] 10*3/uL Normal <0.01 [facility] Comment on above: Order Comment: Speci men Type: BLOOD SPECIMENOrdering Facility: [facility] Address: [address] [place] [address] Performed By: #### 5 8410-2 ####[facility]ONMALINATY [id number] [place] [address] [place] Platelet mean volume (Bld) [Entitic vol] 9.8 fL Normal 9.0-12.7 [facility] Comment on above: Order Comment: Speci men Type: BLOOD SPECIMENOrdering Facility: [facility] Address: [address] [place] [address] Performed By: #### 5 8410-2 ####[facility]ONMALINAAmy [id number] [place] [address] [place] Platelets (Bld) [#/Vol] 314 10*3/uL Normal 150-400 [facility] Comment on above: Order Comment: Speci men Type: BLOOD SPECIMENOrdering Facility: [facility] Address: [address] [place] [address] Performed By: #### 5 8410-2 ####[facility]ONMALINACHARITYA [id number] [place] [address] [place] RBC (Bld) [#/Vol] 4.02 10*6/uL Normal 3.90-5.20 [facility] Comment on above: Order Comment: Speci men Type: BLOOD SPECIMENOrdering Facility: [facility] Address: [address] [place] [address] Performed By: #### 5 8410-2 ####[facility]ON[facility]CL[facility] [id number] [place] [address] [place] WBC (Bld) [#/Vol] 7.88 10*3/uL Normal 3.70-11.00 [facility] Comment on above: Order Comment: Speci men Type: BLOOD SPECIMENOrdering Facility: [facility] Address: [address] [place] [address] Performed By: #### 5 8410-2 ####[facility] [id number] [place] [address] [place] [facility] Comprehensive metabolic 2000 panelon 07-10-2024 Albumin [Mass/Vol] 4.0 g/dL Normal 3.9-4.9 [facility] Comment on above: Order Comment: Speci men Type: BLOOD SPECIMENOrdering Facility: [facility] Address: [address] [place] [address] Performed By: #### 2 4328, 2132-01 ####[facility]ORYCLIA [id number] [place] [address] [place] ALP [Catalytic activity/Vol] 95 U/L Normal 34-123 [facility] Comment on above: Order Comment: Speci men Type: BLOOD SPECIMENOrdering Facility: [facility] Address: [address] [place] [address] Performed By: #### 2 43238, 2132-01 ####[facility]ATORYCLIA [id number] [place] [address] [place] ALT With P-5'-P [Catalytic activity/Vol] 10 U/L Normal 7-38 [facility] Comment on above: Order Comment: Speci men Type: BLOOD SPECIMENOrdering Facility: [facility] Address: [address] [place] [address] Performed By: #### 2 43238, 2132-01 ####[facility]ATORYCLIA [id number] [place] [address] [place] Anion gap [Moles/Vol] 8 mmol/L Normal 8-15 [facility] Comment on above: Order Comment: Speci men Type: BLOOD SPECIMENOrdering Facility: [facility] Address: [address] [place] [address] Performed By: #### 2 4322-12, 2132-01 ####[facility]ATORYCLIA [id number] [place] [address] [place] AST With P-5'-P [Catalytic activity/Vol] 11 U/L Low 13-35 [facility] Comment on above: Order Comment: Speci men Type: BLOOD SPECIMENOrdering Facility: [facility] Address: [address] [place] [address] Performed By: #### 2 4322-12, 2132-01 ####[facility] LABORATORYCLIA [id number] [place] [address] [place] Bilirubin [Mass/Vol] 0.3 mg/dL Normal 0.2-1.3 [facility] Comment on above: Order Comment: Speci men Type: BLOOD SPECIMENOrdering Facility: [facility] Address: [address] [place] [address] Performed By: #### 2 4322-12, 2132-01 ####[facility] LABORATORYCLIA [id number] [place] [address] [place] Calcium [Mass/Vol] 9.2 mg/dL Normal 8.5-10.2 [facility] Comment on above: Order Comment: Speci men Type: BLOOD SPECIMENOrdering Facility: [facility] Address: [address] [place] [address] Performed By: #### 2 4322-12, 2132-01 ####[facility]ATORYCLIA [id number] [place] [address] [place] Chloride [Moles/Vol] 103 mmol/L Normal 98-107 [facility] Comment on above: Order Comment: Speci men Type: BLOOD SPECIMENOrdering Facility: [facility] Address: [facility] [place] [address] Performed By: #### 2 4322-12, 2132-01 ####[facility]ATORYCLIA [id number] [place] [address] [place] CO2 [Moles/Vol] 27 mmol/L Normal 22-30 [facility] Comment on above: Order Comment: Speci men Type: BLOOD SPECIMENOrdering Facility: [facility] Address: [address] [place] [address] Performed By: #### 2 4323-8, 2132-01 ####[facility] LABORATORYCLIA [id number] [place] [address] [place] [facility] Creatinine [Mass/Vol] 0.73 mg/dL Normal 0.58-0.96 [facility] Comment on above: Order Comment: Speci men Type: BLOOD SPECIMENOrdering Facility: [facility] Address: [address] [place] [address] Performed By: #### 2 43207-15, 2132-01 ####[facility]FA[facility] LABORATORYCLIA [id number] [place] [id number] [facility] Creatinine and Glomerular filtration rate.predicted panel (S/P/Bld) 111 mL/min/1.73m??? Normal >=60 [facility] Comment on above: Order Comment: Speci men Type: BLOOD SPECIMENOrdering Facility: [facility] Address: [address] [place] [address] Result Comment: Jordana mated Glomerular Filtration Rate (eGFR) is calculated using the 2020 CKD-EPI creatinine equation. This equation utilizes serum creatinine, sex, and age as parameters. The creatinine assay has traceable calibration to isotope dilution-mass spectrometry. Refer to KDIGO guidelines for clinical interpretation. In patients with unstable renal function, e.g. those with acute kidney injury, the eGFR may not accurately reflect actual GFR. Performed By: #### 2 4323-8, 2132-01 ####[facility] NetworkFA[facility] LABORATORYCLIA [id number] [place] [address] [place] Glucose [Mass/Vol] 93 mg/dL Normal 74-99 [facility] Comment on above: Order Comment: Speci men Type: BLOOD SPECIMENOrdering Facility: [facility] Address: [address] [place] [address] Result Comment: The [place] Diabetes Association (ADA) provides guidance for cutoff values for fasting glucose and random glucose. The ADA defines fasting as no caloric intake for at least 8 hours. Fasting plasma glucose results between 100 to 125 mg/dL indicate increased risk for diabetes (prediabetes). Fasting plasma glucose results greater than or equal to 126 mg/dL meet the criteria for diagnosis of diabetes. In the absence of unequivocal hyperglycemia, results should be confirmed by repeat testing. In a patient with classic symptoms of hyperglycemia or hyperglycemic crisis, random plasma glucose results greater than or equal to 200 mg/dL meet the criteria for diagnosis of diabetes. Reference: Standards of Medical Care in Diabetes 2016, Welsh Diabetes Association. Diabetes Care. 2016.39(Suppl 1). Performed By: #### 2 43207-15, 2132-01 ####[facility]FA[facility] LABORATORYCLIA [id number] [place] [address] [place] Potassium [Moles/Vol] 4.4 mmol/L Normal 3.7-5.1 [facility] Comment on above: Order Comment: Speci men Type: BLOOD SPECIMENOrdering Facility: [facility] Address: [address] [place] [address] Performed By: #### 2 4322-12, 2132-01 ####[facility]FA[facility] LABORATORYCLIA [id number] [place] [address] [place] Protein [Mass/Vol] 6.8 g/dL Normal 6.3-8.0 [facility] Comment on above: Order Comment: Speci men Type: BLOOD SPECIMENOrdering Facility: [facility] Address: [address] [place] [address] Performed By: #### 2 4322-12, 2132-01 ####[facility] [facility] LABORATORYCLIA [id number] [place] [address] [place] Sodium [Moles/Vol] 138 mmol/L Normal 136-144 [facility] Comment on above: Order Comment: Speci men Type: BLOOD SPECIMENOrdering Facility: [facility] Address: [address] [place] [address] Performed By: #### 2 43207-15, 2132-01 ####[facility] LABORATORYCLIA [id number] [place] [address] [place] Urea nitrogen [Mass/Vol] 8 mg/dL Normal 7-21 [facility] Comment on above: Order Comment: Alonso josé Type: BLOOD SPECIMENOrdering Facility: [facility] Address: [address] [place] [address] Performed By: #### 2 4323-8, 2132-9 ####[facility] LABORATORYCLIA [id number] [place] [id number] [place] Ferritin SerPl-mCncon 2024 Ferritin [Mass/Vol] 54.3 ng/mL Normal 14.7-205.1 [facility] Comment on above: Order Comment: Alonso josé Type: BLOOD SPECIMENOrdering Facility: [facility] Address: [address] [place] [address] Performed By: #### 2 4331-1 ####[facility] LABORATORYCLIA [id number] [place] [address] [place] [facility] [id number] [place] [address] [place]#### 2276-4, 3016-3, 20685-5 ####[facility] LABORATORYCLIA [id number] [place] [address] [place] HbA1c (Bld)on 07-10-2024 Average glucose Estimated from glycated hemoglobin (Bld) [Mass/Vol] 103 mg/dL Normal [facility] Comment on above: Order Comment: Alonso josé Type: BLOOD SPECIMENOrdering Facility: [facility] Address: [address] [place] [address] Result Comment: eAG: (Estimated average glucose) is a calculated value from HgbA1c and is shared services representative of the average blood glucose level in the last 2-3 month period. Performed By: #### 5 5454-3 ####[facility] LABCLIA [id number] [place] [address] [place] HbA1c (Bld) [Mass fraction] 5.2 % Normal 4.3-5.6 [facility] Comment on above: Order Comment: Speci men Type: BLOOD SPECIMENOrdering Facility: [facility] Address: [address] [place] [address] Result Comment: Amer ican Diabetes Association guidelines indicate that patients with HgbA1c in the range 5.7-6.4% are at increased risk for development of diabetes, and intervention by lifestyle modification may be beneficial. HgbA1c greater or equal to 6.5% is considered diagnostic of diabetes. Performed By: #### 5 5454-3 ####[facility] LABCLIA [id number] [place] [address] [place] Iron and Iron binding capaci ty panelon 07-10-2024 Iron [Mass/Vol] 65 ug/dL Normal 41-186 [facility] Comment on above: Order Comment: Speci men Type: BLOOD SPECIMENOrdering Facility: [facility] Address: [address] [place] [address] Performed By: #### 2 4331-1 ####[facility]ORATORYCLIA [id number] [address] [id number] [place] [address] [place]#### 2276-4, 3016-3, 38948-2 ####[facility]ORATORYCLIA [id number] [place] [address] [place] Iron binding capacity [Mass/Vol] 272 ug/dL Normal 232-386 [facility] Comment on above: Order Comment: Speci men Type: BLOOD SPECIMENOrdering Facility: [facility] Address: [address] [place] [address] Performed By: #### 2 4331-1 ####[facility]ORATORYCLIA [id number] [address] [id number] [place] [address] [place]#### 2276-4, 3016-3, 99756-9 ####[facility]ORATORYCLIA [id number] [place] [address] [place] Iron saturation [Mass fraction] 23.9 % Normal 15.0-57.0 [facility] Comment on above: Order Comment: Speci men Type: BLOOD SPECIMENOrdering Facility: [facility] Address: [address] [place] [address] Performed By: #### 2 4331-1 ####[facility]ORATORYCLIA [id number] [place], [place] [address] [place] [id number] [place] [address] [place]#### 2276-4, 3015-3, 24819-1 ####[facility]ORATORYCLIA [id number] [place] [address] [place] Lipid 1996 panelon 5 Cholesterol [Mass/Vol] 138 mg/dL Normal <200 [facility] Comment on above: Order Comment: Speci men Type: BLOOD SPECIMENOrdering Facility: [facility] Address: [address] [place] [address] Result Comment: <200 mg/dL, Desirable 200-239 mg/dL, Borderline high >239 mg/dL, High Performed By: #### 2 4331-1 ####[facility]ORATORYCLIA [id number] [place], [place] [address] [place] [address] STATES OF [facility] [id number] [place] [address] [place]#### 2276-4, 3016-3, 15099-0 ####[facility]ORATORYCLIA [id number] [place], [place] [id number] [place] [address] [place] Cholesterol in HDL [Mass/Vol] 50 mg/dL Normal >39 [facility] Comment on above: Order Comment: Speci men Type: BLOOD SPECIMENOrdering Facility: [facility] Address: [address] [place] [address] Result Comment: 40-5 9 mg/dL, Acceptable >59 mg/dL, High: Negative risk factor for coronary heart disease <40 mg/dL, Low: Positive risk factor for coronary heart disease Performed By: #### 2 4331-1 ####[facility]ORATORYCLIA [id number] [place], [place] [address] [place] [id number] [place]#### 2276-4, 3016-3, 37734-5 ####[facility]ORATORYCLIA [id number] [address] Cholesterol in LDL [Mass/Vol] 71 mg/dL Normal <100 [facility] Comment on above: Order Comment: Speci men Type: BLOOD SPECIMENOrdering Facility: [facility] Address: [address] [place] [address] Result Comment: <100 mg/dL, Optimal 100-129 mg/dL, Near optimal/above optimal 130-159 mg/dL, Borderline high 160-189 mg/dL, High >189 mg/dL, Very high Secondary prevention optimal LDL Cholesterol levels are recommended to be < 70 mg/dL Performed By: #### 2 4331-1 ####[facility]ORATORYCLIA [id number] [address] STATES [facility] [id number] [address] STATES [place]#### 2276-4, 3016-3, 85825-4 ####[facility]ORATORYCLIA [id number] [address] STATES [facility] Cholesterol in LDL/Cholesterol in HDL [Mass ratio] 1.42 {ratio} Normal <2.54 [facility] Comment on above: Order Comment: Speci men Type: BLOOD SPECIMENOrdering Facility: [facility] Address: [address] [place] [address] Result Comment: Refugio roberto: 1. National Cholesterol Education Program ATP III Guideline At-A-Glance Quick Desk Reference: National Heart, Lung, and Blood [place]. National Institutes of Health. 2001: NIH Publication No. 01-3305. 2. An International Atherosclerosis Society position paper: global recommendations for the management of dyslipidemia: executive summary, Atherosclerosis. 2014: 232(2):410-413. Performed By: #### 2 4331-1 ####[facility]ORATORYCLIA [id number] [address] [id number] [address]#### 2276-4, 3016-3, 81624-5 ####[facility]ORATORYCLIA [id number] [address] Cholesterol in VLDL [Mass/Vol] 17 mg/dL Normal <30 [facility] Comment on above: Order Comment: Speci men Type: BLOOD SPECIMENOrdering Facility: [facility] Address: [address] [place] [address] Performed By: #### 2 4331-1 ####[facility] LABORATORYCLIA [id number] [id number] [place] [address]#### 2276-4, 3016-3, 17703-0 ####[facility]ORATORYCLIA [id number] [address] [place] Cholesterol non HDL [Mass/Vol] 88 mg/dL Normal <130 [facility] Comment on above: Order Comment: Speci men Type: BLOOD SPECIMENOrdering Facility: [facility] Address: [address] [place] [address] Result Comment: <130 mg/dL, Optimal 130-159 mg/dL, Near optimal/above optimal 160-189 mg/dL, Borderline high 190-219 mg/dL, High >219 mg/dL, Very high Secondary prevention optimal non HDL Cholesterol levels are recommended to be <100 mg/dL Performed By: #### 2 4331-1 ####[facility]ORATORYCLIA [id number] [place], [place] [address] [place] [id number] OF [place]#### 2276-4, 3016-3, 15539-7 ####[facility]ORATORYCLIA [id number] [address] STATES [place] Cholesterol.total/Choles terol in HDL [Mass ratio] 2.76 {ratio} Normal <5.10 [facility] Comment on above: Order Comment: Speci men Type: BLOOD SPECIMENOrdering Facility: [facility] Address: [address] [place] [address] Performed By: #### 2 4331-1 ####[facility]ORATORYCLIA [id number] [address] [id number] [place] [address] OF [place]#### 2276-4, 3015-3, 42957-8 ####[facility]ORATORYCLIA [id number] [address] FASTING TIME 12 hrs Normal [facility] Comment on above: Order Comment: Speci men Type: BLOOD SPECIMENOrdering Facility: [facility] Address: [address] [place] [address] Performed By: #### 2 4331-1 ####[facility]ORATORYCLIA [id number] [id number] [place] [address] OF [place]#### 2276-4, 3016-3, 55892-4 ####[facility]ORATORYCLIA [id number] [address] OF [place] Triglyceride [Mass/Vol] 86 mg/dL Normal <150 [facility] Comment on above: Order Comment: Speci men Type: BLOOD SPECIMENOrdering Facility: [facility] Address: [address] [place] [address] Result Comment: <150 mg/dL, Normal 150-199 mg/dL, Borderline high 200-499 mg/dL, High >499 mg/dL, Very high Performed By: #### 2 4331-1 ####[facility]ORATORYCLIA [id number] [place] [address] [facility] [id number] [address]#### 2276-4, 3016-3, 01931-0 ####[facility]ORATORYCLIA [id number] [place] [id number] [facility] Office Visit Reporton 2024 Office Visit Report [facility] [address] [place] [address] OFFICE VISIT Date of Service: 07/10/24 MR#: [id number] Acct: [id number] Patient: MARY GUILLEN Rep #: [id number] : 1990 Provider: Cristy michel Age/Sex: 34/F Location: [facility] Status: Signed Intake Vital Signs 04/03/24 07:03 Height 5 ft 2 in Intake Visit Reasons: Injection Chief Complaint: Right ear pain Allergies morphine Adverse Reaction (Verified 04/03/24 07:03) Vomiting pseudoephedrine HCl (From Sudafed) Adverse Reaction (Verified 04/03/24 07:03) Vomiting Office Procedures Injections Procedure performed by: Lizzy Clinton Lot number: [id number] Back End Web Developer: Tejas Traylorire date: 11/06/26 Dose of injection: 90mg Site of injection: Sub-Q (Rt upper thigh) Medication Given: Yes Is this a patient provided medication?: Yes 07/10/24 1550 Date Rey Friend DO Cosigner Signature: Date (if applicable) CC: Normal [facility] TSH SerPl-aCncon 07-10-2024 TSH Qn 2.040 m[IU]/L Normal 0.270-4.20 0 [facility] Comment on above: Order Comment: Speci men Type: BLOOD SPECIMENOrdering Facility: [facility] Address: [address] [place] [address] Result Comment: If t he patient is , TSH reference range varies by gestational period: First Trimester (weeks 9-12): 0.180-2.990 mIU/L Second Trimester: 0.110-3.980 mIU/L Third Trimester: 0.480-4.710 mIU/L Fernando Espinoza et al. A Practical Approach for the Verifications and Determination of Site- and Trimester-Specific Reference Intervals for Thyroid Function tests in . Thyroid, 2019:29:3:412-420. Cory E, et al. 2017 Guidelines of the [employer] for the Diagnosis and Management of Thyroid Disease during and the . Thyroid, 2017:27:3:315-389. Performed By: #### 2 4331-1 ####[facility] LABORATORYCLIA [id number] [place] [address] [place] [facility] [id number] [place] [address] [place]#### 2276-4, 3016-3, 74562-5 ####[facility] LABORATORYCLIA [id number] [address] [place] Vit B12 SerPl-mCncon 025 Cobalamin (Vitamin B12) [Mass/Vol] 1025 pg/mL Normal 232-1245 [facility] Comment on above: Order Comment: Speci men Type: BLOOD SPECIMENOrdering Facility: [facility] Address: [address] [place] [address] Performed By: #### 2 4323-8, 2132-9 ####[facility] LABORATORYCLIA [id number] [place] [address] [place] CNCOon 06-01-2024 CNCO Letter Text Normal [facility] CNOVon 06-01-2024 CNOV Office Visit (FAMPWS ) ----- SENGAUSTINMARY Wilils ([id number]) 1990 F Date Time Provider Department 06/01/24 2:00 PM [facility] During your visit today, we recorded the following information about you: Temperature Pulse Blood pressure Weight 98 degrees 92/minute 118/82 87.4 kg Height 1.6 m Toñito Johnson, WARP PICKER.RECORDING ARTIST 06/01/2024 2:53 PM Signed Chief Complaint Patient presents with: Yearly Exam: URI sx, cough, congestion x 4 days, was seen in [facility] and prescribed prednisone HPI Mary Hamiltonaustin is a 33 year old female who presents here today for Above Complaints.. Here for her yearly physical. Denies CP, SOB, palpitations, new or persistent h/a, difficulty swallowing, n/v/d, increased thirst or urination. Has been sick for about 4 days, was seen in [facility] 2 days ago, dx with viral UTI, given steroid taper. Overall just doesn't feel well. Frequent persistent nonproductive cough. No fevers. +some nasal congestion. Past medical history, appointments, medications, allergies reviewed. Previous Medical History PAST MEDICAL HISTORY Diagnosis Date Anemia Asthma Crohn's disease (HCC) Impaired fasting glucose 09/2014 Miscarriage Unspecified asthma(493.90) Previous Surgical History PAST SURGICAL HISTORY Procedure Laterality Date CHOLECYSTECTOMY HX 2016 COLONOSCOPY 07/23/2021 EGD 07/23/2021 INSERTION OF IUD 06/11/2009 Mirena IUD REMOVAL (CERAMIC TILE SETTER DEPT)_*FL 02/2010 NEXPLANON INSERTION 03/19/2014,10/2015 left arm NEXPLANON REMOVAL 04/08/2017 PAST SURGICAL HISTORY OF Left 12/29/2017 ORIF medial and lateral malleolus of trimalleolar ankle fracture; Dr. Jeir Ramesh REPAIR UMBILICAL HERNIA 01/15/2022 SALPINGECTOMY Bilateral [...] on File Prior to Visit Medication Sig predniSONE (DELTASONE) 10 mg tablet Take 4 tabs daily for 3 days, then 2 tabs daily for 3 days, then 1 tab daily for 3 days with food. albuterol HFA (PROVENTIL HFA, VENTOLIN HFA) 90 mcg/actuation inhaler Inhale 2 Puffs as instructed every 4 hours as needed for wheezing/shortness of breath. albuterol HFA (PROAIR HFA) 90 mcg/actuation inhaler Inhale 2 Puffs as instructed every 6 hours as needed. dicyclomine (BENTYL) 10 mg capsule Take 1 capsule by mouth three times daily as needed (for abdominal pain). budesonide, enteric coated (ENTOCORT EC) 3 mg 24 hr capsule take 3 capsules by mouth once daily for 30 DAYS, THEN DECREASE TO... (REFER TO PRESCRIPTION NOTES). SLOW RELEASE IRON 142 mg (45 mg iron) TbER Take 45 mg by mouth twice daily with meals. albuterol HFA (PROVENTIL HFA, VENTOLIN HFA) 90 mcg/actuation inhaler Inhale 2 Puffs as instructed every 2 hours as needed for wheezing/shortness of breath. STELARA 90 mg/mL injection 90 mg every 8 weeks. Mesalamine (PENTASA) 500 mg CR capsule Take 2 capsules by mouth four times daily. No current facility-administered medications on file prior to visit. Social History Social History Tobacco Use Smoking status: Never Smokeless tobacco: Never Vaping Use Vaping status: Never Used Substance Use Topics Alcohol use: Not Currently Drug use: Never Review of Symptoms REVIEW OF SYSTEMS See HPI, otherwise negaitve EXAM: BP 118/82 (BP Site: Left Arm, BP Position: Sitting, BP Cuff Size: Regular Adult) Pulse 92 Temp 36.7 ?C (98 ?F) Ht 160 cm (5' 2.99) Wt 87.4 kg (192 lb 10.9 oz) LMP 02/02/2024 (Exact Date) SpO2 96% BMI 34.14 kg/m? General Appearance: ill-appearing, alert, in no acute distress, well-hydrated, well nourished.. Skin: Skin color, texture, turgor normal, no suspicious rashes or lesions. Head: Normocephalic, no masses, lesions, tenderness or abnormalities. Eyes: watery Ears: External ears normal, canals clear. Nose/Sinuses: Nares normal, septum midline, mucosa normal, no drainage or sinus tenderness. Oropharynx: Lips, mucosa, and tongue normal, teeth and gums normal, oropharynx normal. Neck: Supple, no adenopathy; thyroid symmetric, normal size, no bruits. Back:no pain to palpation of vertebrae, goo (more content not included)... Normal [facility] CNOVon 05-30-2024 CNOV Office Visit (WSTR ) ----- MARY GUILLEN ([id number]) 1990 F Date Time Provider Department 05/30/24 12:00 PM DEYVI WILLOUGHBY [facility] During your visit today, we recorded the following information about you: Temperature Pulse Respiration Blood pressure 98.6 degrees 106/minute 18/minute 106/64 Weight 86.6 kg Deyvi Willoughby APRN.RECORDING ARTIST 05/30/2024 1:52 PM Signed Subjective HPI HPI Mary Guillen is a 33 year old female who presents today for CC of cough, st. This started 3 days ago. Has tried otc medication for relief. Symptoms are worsened by nothign. Risk factors sick exposures. Hx of asthma. Nonsmoker. Denies possibility of being . .Patient presents with: Cough: sore throat x 3 days PAST MEDICAL HISTORY Diagnosis Date Anemia Asthma Crohn's disease (HCC) Impaired fasting glucose 09/2014 Miscarriage Unspecified asthma(493.90) PAST SURGICAL HISTORY Procedure Laterality Date CHOLECYSTECTOMY HX 2016 COLONOSCOPY 07/23/2021 EGD 07/23/2021 INSERTION OF IUD 06/11/2009 Mirena IUD REMOVAL (CERAMIC TILE SETTER DEPT)_*FL 02/2010 NEXPLANON INSERTION 03/19/2014,10/2015 left arm NEXPLANON REMOVAL 04/08/2017 PAST SURGICAL HISTORY OF Left 12/29/2017 ORIF medial and lateral malleolus of trimalleolar ankle fracture; Dr. Jeri Ramesh REPAIR UMBILICAL HERNIA 01/15/2022 SALPINGECTOMY Bilateral 01/15/2022 laparoscopic TYMPANOSTOMY LOCAL/TOPICAL ANESTHESIA ALLERGIES Morphine and Sudafed [Pseudoephedrine Hcl] MEDICATIONS STELARA 90 mg/mL injection 90 mg every 8 weeks. albuterol HFA (PROAIR HFA) 90 mcg/actuation inhaler Inhale 2 Puffs as instructed every 6 hours as needed. Mesalamine (PENTASA) 500 mg CR capsule Take [...] mg by mouth twice daily with meals. albuterol HFA (PROVENTIL HFA, VENTOLIN HFA) 90 [...] Never Smokeless tobacco: Never Vaping Use Vaping status: Never Used Substance Use Topics Alcohol use: Not Currently Drug use: Never Review of Systems Constitutional: Negative for fever. HENT: Positive for congestion and sore throat. Negative for ear pain and nosebleeds. Respiratory: Positive for cough. Negative for shortness of breath and wheezing. Musculoskeletal: Negative for neck pain. Objective Physical Exam Constitutional: General: She is not in acute distress. Appearance: She is not toxic-appearing or diaphoretic. HENT: Head: Normocephalic and atraumatic. Mouth/Throat: Mouth: Mucous membranes are moist. Pharynx: Uvula midline. Posterior oropharyngeal erythema present. Cardiovascular: Rate and Rhythm: Normal rate and regular rhythm. Heart sounds: Normal heart sounds, S1 normal and S2 normal. Pulmonary: Effort: Pulmonary effort is normal. Breath sounds: Normal breath sounds. Comments: Harsh dry cough during exam. Lymphadenopathy: Cervical: No cervical adenopathy. Right cervical: No superficial cervical adenopathy. Left cervical: No superficial cervical adenopathy. Neurological: Mental Status: She is alert and oriented to person, place, and time. Gait: Gait is intact. ASSESSMENT/PLAN: 1. URI, acute - ICD9: 465.9, ICD10: J06.9 (primary diagnosis) - Discussed viral etiology and rationale for treatment. - Symptomatic treatment with prn analgesia - Supportive care with fluids and rest - Follow up in 3-5 days if symptoms persist or sooner if worsening of symptoms - PREDNISONE 10 MG TABLET - ALBUTEROL SULFATE HFA 90 MCG/ACTUATION AEROSOL INHALER 2. Sore throat - ICD9: 462, ICD10: J02.9 negative - STREP A MOLECULAR (POC) Strep negative. 3. Acute cough - ICD9: 786.2, ICD10: R05.1 - XR CHEST 2V FRONTAL/LAT IMPRESSION: No acute radiographic abnormality. Dictated by : MD Deyvi CAMPOS, GALEN.RECORDING ARTIST Allergies As of Date: 05/30/2024 Noted Allergy Reaction MORPHINE (more content not included)... Normal [facility] STREP A MOLECULAR (POC)on Procedural Control Valid [facility] Strep A (POCT) Negative Negative [facility] XR CHEST 2V FRONTAL/LATon XR CHEST 2V FRONTAL/LAT * * *Final Repor t* * * DATE OF EXAM: May 30 2024 12:10PM WOX 5291 - XR CHEST 2V FRONTAL/LAT / PROCEDURE REASON: Acute cough * * * * Physician Interpretation * * * * EXAMINATION: CHEST RADIOGRAPH (2 VIEW FRONTAL and LATERAL) CLINICAL HISTORY: Acute cough MQ: XC2_6 EXAM DATE/TIME: 05/30/2024 12:10 PM COMPARISON: No relevant prior studies available. RESULT: Lines, tubes, and devices: None. Lungs and pleura: No consolidation. No lung mass. No pleural effusion. No pneumothorax. Cardiomediastinal silhouette: Normal cardiomediastinal silhouette. Bones and soft tissues: Unremarkable. IMPRESSION: No acute radiographic abnormality. Scientologist: [facility] Transcribe Date/Time: May 30 2024 12:13P Dictated by : DAVID IBRAHIM MD This examination was interpreted and the report reviewed and electronically signed by: DAVID IBRAHIM MD on May 30 2024 12:13PM EST [id number] Normal [facility] XR Chest PA and Lateralon Radiology Study observation (narrative) [facility] IMPRESSION: No acute radiographic abnormality. Scientologist: [facility] Transcribe Date/Time: May 30 2024 12:13P Dictated by : DAVID IBRAHIM MD This examination was interpreted and the report reviewed and electronically signed by: DAVID IBRAHIM MD on May 30 2024 12:13PM EST DIVISION OF RADIOLOGY * * *Final Report* * * DATE OF EXAM: May 30 2024 12:10PM WOX 5291 - XR CHEST 2V FRONTAL/LAT / PROCEDURE REASON: Acute cough * * * * Physician Interpretation * * * * EXAMINATION: CHEST RADIOGRAPH (2 VIEW FRONTAL & LATERAL) CLINICAL HISTORY: Acute cough MQ: XC2_6 EXAM DATE/TIME: 05/30/2024 12:10 PM COMPARISON: No relevant prior studies available. RESULT: Lines, tubes, and devices: None. Lungs and pleura: No consolidation. No lung mass. No pleural effusion. No pneumothorax. Cardiomediastinal silhouette: Normal cardiomediastinal silhouette. Bones and soft tissues: Unremarkable. DIVISION OF RADIOLOGY Provider, Taiwo Collier [facility] - 05/30/2024 * * *Final Report* * * DATE OF EXAM: May 30 2024 12:10PM WOX 5291 - XR CHEST 2V FRONTAL/LAT / PROCEDURE REASON: Acute cough * * * * Physician Interpretation * * * * EXAMINATION: CHEST RADIOGRAPH (2 VIEW FRONTAL & LATERAL) CLINICAL HISTORY: Acute cough MQ: XC2_6 EXAM DATE/TIME: 05/30/2024 12:10 PM COMPARISON: No relevant prior studies available. RESULT: Lines, tubes, and devices: None. Lungs and pleura: No consolidation. No lung mass. No pleural effusion. No pneumothorax. Cardiomediastinal silhouette: Normal cardiomediastinal silhouette. Bones and soft tissues: Unremarkable. IMPRESSION IMPRESSION: No acute radiographic abnormality. Scientologist: [facility] Transcribe Date/Time: May 30 2024 12:13P Dictated by : DAVID IBRAHIM MD This examination was interpreted and the report reviewed and electronically signed by: DAVID IBRAHIM MD on May 30 2024 12:13PM EST [facility] XR Chest PA and LateralOrder ed By: [facility] Provider on 05-30-2024 [facility] Office Visit Reporton 2023 Office Visit Report [facility] [address] [place] [address] OFFICE VISIT Date of Service: 05/02/24 MR#: [id number] Acct: [id number] Patient: MARY GUILLEN Rep #: [id number] : 1990 Provider: Rey Alcaraz DO Age/Sex: 33/F Location: [place] Status: Signed Intake Vital Signs 06/01/23 13:47 04/03/24 07:03 Height 5 ft 2 in 5 ft 2 in Intake Visit Reasons: STALARA INJ [employer] Operator Required: No Is patient in pain?: No Allergies morphine Adverse Reaction (Verified 04/03/24 07:03) Vomiting pseudoephedrine HCl (From Sudafed) Adverse Reaction (Verified 04/03/24 07:03) Vomiting Current gender identity: female Nursing Note Patient arrived for Stelara injection. Serial#[id number], expiration date 08/2026. Administered in right outer thigh. Tolerated well. 05/04/24 1112 Date Rey Alcaraz DO Cosigner Signature: Date (if applicable) CC: Normal [facility] EGD Reporton 04-03-2024 EGD Report [facility] Medical Records Department [address] [place] [address] EGD Report MR#: [id number] Acct: [id number] Name: MARY GUILLEN Rep #: [id number] : 1990 33 From: Rey Alcaraz DO PCP: Dr. Drake Whiting DO Status:REG [facility] Patient Name: Mary Guillen Procedure Date: 04/03/2024 7:45 AM Date of : 1990 Age: 33 Procedure: Upper GI endoscopy Indications: Dysphagia Providers: Rey Alcaraz DO Referring MD: Drake Whiting Medicines: Monitored Anesthesia Care Patient Profile: This is a 33 year old female. Refer to note in patient chart for documentation of history and physical. Patient has symptoms of dysphagia with both liquids and solids. Complications: No immediate complications. Procedure: Pre-Anesthesia Assessment: - Prior to the procedure, a History and Physical was performed, and patient medications and allergies were reviewed. The patient is competent. The risks and benefits of the procedure and the sedation options and risks were discussed with the patient. All questions were answered and informed consent was obtained. Patient identification and proposed procedure were verified by the physician in the pre-procedure area. Mental Status Examination: alert and oriented. Prophylactic Antibiotics: The patient does not require prophylactic antibiotics. Prior Anticoagulants: The patient has taken no anticoagulant or antiplatelet agents except for NSAID medication. ASA Grade Assessment: II - A patient with mild systemic disease. After reviewing the risks and benefits, the patient was deemed in satisfactory condition to undergo the procedure. The anesthesia plan was to use monitored anesthesia care (MAC). Immediately prior to administration of medications, the patient was re-assessed for adequacy to receive sedatives. The heart rate, respiratory rate, oxygen saturations, blood pressure, adequacy of pulmonary ventilation, and response to care were monitored throughout the procedure. The physical status of the patient was re-assessed after the procedure. After obtaining informed consent, the endoscope was passed under direct vision. Throughout the procedure, the patient's blood pressure, pulse, and oxygen saturations were monitored continuously. The gastroscope was introduced through the mouth, and advanced to the second part of duodenum. The upper GI endoscopy was accomplished without difficulty. The patient tolerated the procedure well. Scope In: 7:54:40 AM Scope Out: 7:58:39 AM Total Procedure Duration Time 0 hours 3 minutes 59 seconds Findings: Mucosal changes including feline appearance, longitudinal furrows and small-caliber esophagus were found in the middle third of the esophagus and in the lower third of the esophagus. Biopsies were obtained from the proximal and distal esophagus with cold forceps for histology of suspected eosinophilic esophagitis. Verification of patient identification for the specimen was done. A guidewire was placed and the scope was withdrawn. Dilation was performed with a Savary dilator with no resistance at 60 Fr. The dilation site was examined and showed moderate improvement in luminal narrowing. Estimated blood loss was minimal. A large amount of food (residue) was found in the entire examined stomach. No gross lesions were noted in the duodenal bulb. Impression: - Esophageal mucosal changes secondary to eosinophilic esophagitis. Dilated. - A large amount of food (residue) in the stomach. - No gross lesions in the duodenal bulb. - Biopsies were taken with a cold forceps for evaluation of eosinophilic esophagitis. Recommendation: - Discharge patient to home. - Resume previous diet. - Continue present medications. - Await pathology results. - Metoclopramide 5 mg p.o. 3 times daily x 21 days Procedure Code(s): --- Professional --- 15587, Esophagogastroduodenoscop y, flexible, transoral; with insertion of guide wire followed by passage of dilator(s) through esophagus over guide wire 41806, 59,51, Esophagogastroduodenoscop y, flexible, transoral; with biopsy, single or multiple CPT copyright 2021 [employer]. All rights reserved. The codes documented in this report are preliminary and upon doctor of naprapathic medicine review may be revised to meet current compliance requirements. Rey Alcaraz DO 04/03/2024 8:09:10 AM This report has been signed electronically. Number of Addenda: 0 Note Initiated On: 04/03/2024 7:45 AM 04/03/24808 Date Rey Alcaraz DO Cosigner Signature: Date (if indicated) CC: Dr. Drake Whiting DO; Rey Alcaraz DO Date Dictated: 04/03/24744 Date Transcribed: Scientologist: MURALI Signed [facility] MR/POSTOP.Sammie 04-03-2024 MR/POSTOP.[facility] Medical Records Department [address] [place] [address] Anesthesia Postop Eval I 04/03/24805 MR#: [id number] Acct: [id number] Name: NATHANIEL GUILLENSCILLA CHARLY Rep #: [id number] : 1990 33 From: Philip Tirado PCP: Dr. Drake Whiting DO Status:REG [facility] Y Race: H Location: [place] [address] Anesthesia: Postop Eval I Current Vital Signs Temperature: 97.1 F Pulse Rate: 92 Blood Pressure: 90/57 Respiratory Rate: 16 Pulse Ox: 95 Oxygen Delivery Method: Room Air Assessment Airway patent: Yes Spontaneous unlabored respirations: Yes Mental status: Asleep nausea: No Vomiting: No Anesthesia Complication: No Fluid Hydration Crystalloid volume administer (ml): 30 Total IV fluid infused: 30 Progress Note Anesthesia document: Postop Eval 1 completed: Yes 04/03/24806 Date Philip Saba Signature: CC: Signed Normal [facility] MR/[id number] 04-03-2024 MR/POSTOPAN2 [facility] Medical Records Department [address] [place] [address] Anesthesia Postop Eval II 04/03/24920 MR#: [id number] Acct: [id number] Name: MARY GUILLEN Rep #: [id number] : 1990 33 From: Jose Fisher MD PCP: Dr. Drake Whiting, DO Status:[facility] Y Race: H Location: EN Anesthesia Postop Eval I Sum Postop Eval Completion status Anesthesia document: Postop Eval 1 completed: Yes Anesthesia Postop Eval I Summary Anesthesia Postop Eval I Summary: Anesthesia Postop Eval I: Assessment Summary Airway patent Yes 04/03/24 08:07 [email or web address] Spontaneous unlabored Yes 04/03/24 08:07 [email or web address] respirations Mental status Asleep 04/03/24 08:07 [email or web address] nausea No 04/03/24 08:07 [email or web address] Vomiting No 04/03/24 08:07 [email or web address] Anesthesia Postop Eval I: Fluid Summary Crystalloid volume administer 30 04/03/24 08:07 [email or web address] (ml) Colloids volume administered ( ml) Blood Product volume administered (ml) Total IV fluid infused 30 04/03/24 08:07 [email or web address] Anesthesia Postop Eval I: Summary Notes Anesthesia Complication No 04/03/24 08:07 [email or web address] Anesthesia Complication Comment: Post-operative progress note Anesthesia: Postop Eval II Evaluation Mental status: Awake Pain Level: 1 nausea: No Vomiting: No 04/03/24921 Jose Saba Signature: Date CC: Signed Normal [facility] Surgery Specimen [place] 04-03-2024 Surgery Specimen Level IV Patient Age/Sex Location Account Attending Physician MARY GUILLEN 33/F EN [id number] Rey Alcaraz DO Specimen: [id number] Received: 04/03/24 Status: GORDON Cordero Num: [id number] Spec Type: EGD BIOPSY Subm Dr: Rey Alcaraz, DO HEADER OPERATION: EGD with biopsy and dilatation PRE-OP DIAGNOSIS: Crohn's disease TISSUE SUBMITTED: Random esophagus biopsy MICROSCOPIC DIAGNOSIS Esophagus, random biopsy: Fragments of benign squamous mucosa. No evidence of inflammation. AM. 04/04/2024 MICROSCOPIC DESCRIPTION Slides are reviewed. GROSS DESCRIPTION Received in fixative is one container labeled with the patient's name and designated Random esophagus biopsy. The specimen consists of two irregular fragments of light cortes soft tissue that in aggregate measure 0.8 x 0.7 x 0.1 cm. The specimen is totally submitted in one cassette. . 04/03/2024 TC:5 CPT:44146 Patient Age/Sex Location Account Attending Physician MARY GUILLEN/F EN [id number] Rey Alcaraz DO Signed (signature on file) Dr. Donaldo Farias DO 04/04/24 1405 Normal [facility] Comment on above: Performed By: #### L 100.0100, L101.9900, L501.2450, L501.9985, L501.2400, L501.9520, L501.6710, L3410.9992, L500.4050 #### [facility] [address] [place], [address] Emergency Department Summary on 03-28-2024 Emergency Department Summary [facility] Medical Records Department [address] [place] [address] Emergency Department Summary 03/28/24 MR#: [id number] Acct: [id number] Name: MARY GUILLEN Rep #: [id number] : 1990 33 From: Roberto Carlos Tirado DO PCP: Dr. Drake Whiting DO Status:REG ER Location: ED HPI History of Present Illness Chief Complaint: Headache Narrative Narrative: Patient is a 33-year-old female with a past medical history of GERD, anemia, asthma, Crohn's disease, migraine headaches who presents to the emerged part with chief complaint headache. States that she went to work this morning and started to develop a headache states that this was slow in onset and gradually worsened throughout the day. States that she was sent home by her boss secondary to headache and notes that as the afternoon went on she started developing nausea vomiting associate with her headache. States that she tried to take migraine medication [id number] which she p vomited this up. patient states that she did have some spots in her vision on the right side when this headache was starting states that this has improved. [facility] Medical History (Updated 03/28/24 @ 18:[address] Roberto Carlos Tirado, DO) History of ulceration Heartburn Gastric reflux Periumbilical hernia IFG (impaired fasting glucose) Anemia History of Crohn's disease Non-smoker Hx of fracture of leg Encounter for screening for COVID-19 Acute conjunctivitis, right eye Acute sinusitis, unspecified Asthma Home Medications ???Medication ???Instructions ???Recorded ???Last Taken ???Type cholecalciferol (vitamin D3) 10 10 mcg PO DAILY 12/22/20 Unknown History mcg (400 unit) capsule (Vitamin D3) albuterol sulfate 90 mcg/actuation 1 - 2 inh inhalation PRN PRN ASTHMA 01/08/22 Unknown History aerosol inhaler dicyclomine 10 mg capsule 10 mg PO PRN PRN ABD PAIN 01/08/22 Unknown History ferrous sulfate 142 mg (45 mg 45 mg PO BID 01/08/22 Unknown History iron) tablet,extended release (Slow Release Iron) budesonide 3 mg 3 mg PO DAILY #90 ea 03/17/23 Unknown Rx capsule,delayed,extended release ondansetron 4 mg disintegrating 4 mg PO Q8H PRN PRN Nausea #10 tabs 04/16/23 Unknown Rx tablet ustekinumab 130 mg/26 mL 390 mg (78 mL) IV ONCE 05/13/23 Unknown Rx intravenous solution (Stelara) ustekinumab 90 mg/mL subcutaneous 90 mg subcut Q8W #1 mL 07/23/23 Unknown Rx syringe (Stelara) hydrocortisone acetate 25 mg 25 mg TN BID #42 ea 01/19/24 Unknown Rx rectal suppository lansoprazole 30 mg capsule,delayed 30 mg PO DAILY PRN 02/28/24 Unknown History release ondansetron 4 mg disintegrating 4 mg PO Q6H PRN nausea and 03/28/24 Unknown Rx tablet vomiting #20 tabs Allergy/AdvReac Type Severity Reaction Status Date / Time morphine AdvReac Vomiting Verified 03/28/24 16:29 pseudoephedrine HCl (From AdvReac Vomiting Verified 03/28/24 16:29 Sudafed) Surgical History History of hernia surgery History of tubal ligation History of ear surgery Hx laparoscopic cholecystectomy Social History Smoking Status: Never smoker alcohol intake: never ROS ROS ED ROS Narrative Constitutional: Complains of headache as noted above denies lightheadedness, dizziness, fevers, chills Eyes: Complains of changes with spots in her right eye associate with a headache denies any double vision Cardiovascular: Denies chest pain or palpitations Respiratory: Denies shortness of breath Abdomen: Denies abdominal pain nausea vomit diarrhea : Denies any urinary symptoms Neurological: Denies any numbness, weakness, tingling Musculoskeletal: Denies back pain Skin: Denies rashes or lesions EXAM Physical Exam Narrative Exam Narrative: General: Patient lying in bed rest comfortably did not appear to be in acute distress Head: Atraumatic, normocephalic Eyes: PERRL bilaterally, EOMI bilateral, no conjunctival injection noted Neck: Soft, supple, trachea midline, no concern for meningitis Cardiovascular: Regular rate and rhythm no murmurs gallops rubs noted Respiratory: Clear to auscultation bilaterally no rales rhonchi or wheezes noted Abdomen: Soft, nondistended, nontender to palpation bowel sounds present x 4 Extremities: +5/5 strength noted in the bilateral upper and lower extremities, radial pulses +2/4 in the bilateral per extremities Neurological: Patient follow commands knew that she was at [facility] years 24. Patient completed finger-nose and [id number] test bilaterally no difficulty. NIH of 0 GCS 15 Skin: Warm, dry, intact Const Vital Signs: 03/28/24 16:29 Temperature 96.8 F L Temperature Source Temporal Pulse Rate 88 Respiratory Rate 17 Blood Pressure 124/ (more content not included)... Normal [facility] ,Urineon 03-28-2024 Beta HCG ( test) Ql (U) Negative Normal [facility] Comment on above: Order Comment: CLEAN CATCH Result Comment: Very dilute urine specimens, as indicated by a low specific gravity, may not contain shared services representative levels of hCG. If is still suspected, a first morning urine specimen should be collected 48 hours later and tested. Performed By: #### L 100.0100, L101.9900, L501.2450, L501.9985, L501.2400, L501.9520, L501.6710, L3410.9992, L500.4050 #### [facility] [address] [place], [address] Urinalysis, Completeon 03-28 AMORPHOUS R Normal [facility] Comment on above: Order Comment: CLEAN CATCH Performed By: #### L 400.0001, L400.7600 #### [facility] [address] [place], [address] BACTERIA 1+ /hpf Normal None Seen [facility] Comment on above: Order Comment: CLEAN CATCH Performed By: #### L 400.0001, L400.7600 #### [facility] [address] [place], [address] EPI,SQUAMOUS 10-25 SEEN Normal 5-10 [facility] Comment on above: Order Comment: CLEAN CATCH Performed By: #### L 400.0001, L400.7600 #### [facility] [address] [place], [address] Mucus Ql (Urine sed) 3+ /hpf Normal [facility] Comment on above: Order Comment: CLEAN CATCH Performed By: #### L 400.0001, L400.7600 #### [facility] [address] [place], [address] WBC 0-5 SEEN Normal 0-5 [facility] Comment on above: Order Comment: CLEAN CATCH Performed By: #### L 400.0001, L400.7600 #### [facility] [address] [place], [address] KETONE UR 150 mg/dl Abnormal Negative [facility] Comment on above: Order Comment: CLEAN CATCH Result Comment: CRIT ICAL VALUE *H CRITICAL VALUE CALLED TO KENDY LLOYD 03/28/24 Ramón Jarrell. RESULTS READ BACK BY SAME. Performed By: #### L 400.0001, L400.7600 #### [facility] [address] [place], [address] BILIRUBIN URINE Negative Normal Negative [facility] Comment on above: Order Comment: CLEAN CATCH Performed By: #### L 400.0001, L400.7600 #### [facility] [address] [place], [address] Clarity (U) Sl. Cloudy Normal Clear [facility] Comment on above: Order Comment: CLEAN CATCH Performed By: #### L 400.0001, L400.7600 #### [facility] [address] [place], [address] Color (U) Yellow Normal Yellow [facility] Comment on above: Order Comment: CLEAN CATCH Performed By: #### L 400.0001, L400.7600 #### [facility] [address] [place], [address] GLUCOSE, UR Normal Normal Normal [facility] Comment on above: Order Comment: CLEAN CATCH Performed By: #### L 400.0001, L400.7600 #### [facility] [address] [place], [address] LEUK ESTERASE 25 /ul Abnormal Negative [facility] Comment on above: Order Comment: CLEAN CATCH Performed By: #### L 400.0001, L400.7600 #### [facility] [address] [place], [address] Nitrite Ql (U) Negative Normal Negative [facility] Comment on above: Order Comment: CLEAN CATCH Performed By: #### L 400.0001, L400.7600 #### [facility] [address] [place], [address] OCCULT BLOOD-UR Negative Normal Negative [facility] Comment on above: Order Comment: CLEAN CATCH Performed By: #### L 400.0001, L400.7600 #### [facility] [address] [place], [address] pH UR 7.0 Normal 5.0 - 8.0 [facility] Comment on above: Order Comment: CLEAN CATCH Performed By: #### L 400.0001, L400.7600 #### [facility] [address] [place], [address] PROT DIPSTX 15 mg/dl Abnormal Negative [facility] Comment on above: Order Comment: CLEAN CATCH Performed By: #### L 400.0001, L400.7600 #### [facility] [address] [place], [address] SP.GR. DIPSTX 1.010 Normal 1.002-1.03 0 [facility] Comment on above: Order Comment: CLEAN CATCH Performed By: #### L 400.0001, L400.7600 #### [facility] [address] [place], [address] UROBILI Normal Normal Normal [facility] Comment on above: Order Comment: CLEAN CATCH Performed By: #### L 400.0001, L400.7600 #### [facility] [address] [place], [address] RBC 0 SEEN Normal 0-5 [facility] Comment on above: Order Comment: CLEAN CATCH Performed By: #### L 400.0001, L400.7600 #### [facility] [address] [place], [address] STREP A MOLECULAR (POC)on Procedural Control Valid [facility] Strep A (POCT) Negative Negative [facility] STREP A MOLECULAR (POC)on Procedural Control Valid [facility] Strep A (POCT) Negative Negative [facility] Absolute lymphocyte countOrd ered By: Erasmo Cage on 04-16-2023 Lymphocytes Auto (Unsp spec) [#/Vol] 2.26 10*3/uL 0.83-4.51 [facility] Basophil percentageOrdered B y: Erasmo Cage on 04-16-2023 Basophil percentage 0-5 SEEN /hpf 0-5 [facility] Basophils/100 WBC (Bld) 0.2 % 0-1 [facility] Bilirubin [Mass/Vol] 0.30 mg/dL 0.20-1.00 [facility] Comment on above: For patients on eltr ombopag therapy, use of Dimension [place] TBIL is not recommended. Chloride [Moles/Vol] 106 mmol/L 98-107 [facility] Eosinophils/100 WBC (Bld) 0.3 % 0-5 [facility] Glucose [Mass/Vol] 104 mg/dL 74-106 [facility] Comment on above: Fasting Glucose resu lt from 100 to 125 mg/dL suggests IMPAIRED HOMEOSTASIS per A.D.A. criteria. Lactate [Moles/Vol] 0.8 mmol/L 0.4-2.0 [facility] Neutrophils (Bld) [#/Vol] 6.3 10*3/uL 2.0-7.7 [facility] Neutrophils/100 WBC (Bld) 69.5 % 47-70 [facility] Potassium [Moles/Vol] 3.5 mmol/L 3.5-5.1 [facility] Protein [Mass/Vol] 7.8 g/dL 6.4-8.2 [facility] Sodium [Moles/Vol] 139 mmol/L 136-145 [facility] WBC (Bld) [#/Vol] 9.1 10*3/uL 4.4-11.0 [facility] Beta hCG serum qualOrdered B y: Erasmo Cage on 04-16-2023 Beta HCG ( test) Ql Negative [facility] Bilirubin Test strip Ql (U)O rdered By: Erasmo Cage on 04-16-2023 Bilirubin Ql (U) Negative Negative [facility] Blood erythrocytes count (nu mber/volume)Ordered By: Erasmo Cage on 04-16-2023 RBC (Bld) [#/Vol] 4.05 10*6/uL 4.2-5.4 [facility] Blood hemoglobin measurement (mass/volume)Ordered By: Erasmo Cage on 04-16-2023 Hemoglobin (Bld) [Mass/Vol] 12.1 g/dL 12.0-15.0 [facility] Blood lymphocytes/100 leukoc ytesOrdered By: Erasmo Cage on 04-16-2023 Lymphocytes/100 WBC (Bld) 24.7 % 19-41 [facility] Blood monocytes/100 leukocyt esOrdered By: Erasmo Cage on 04-16-2023 Monocytes/100 WBC (Bld) 4.9 % 0-10 [facility] Blood platelet mean volumeOr dered By: [facility] on 04-16-2023 Platelet mean volume (Bld) [Entitic vol] 9.3 fL 6.2-12.0 [facility] Determination of erythrocyte mean corpuscular volume (MCV)Ordered By: Erasmo Cage on 04-16-2023 MCV (RBC) [Entitic vol] 90.4 fL 81-99 [facility] Hematocrit Auto (Bld) [Volum e fraction]Ordered By: [facility] on 04-16-2023 Hematocrit (Bld) [Volume fraction] 36.6 % 37-47 [facility] Ketones Test strip Ql (U)Ord ered By: [facility] on 04-16-2023 Ketones Ql (U) 5 mg/dl Negative [facility] - Chemistry and C hemistry - challengeOrdered By: [facility] on 04-16-2023 ALP [Catalytic activity/Vol] 89 U/L 45-117 [facility] ALT [Catalytic activity/Vol] 18 U/L -56 [facility] CO2 [Moles/Vol] 29.0 mmol/L 21.0-32.0 [facility] Globulin (S) [Mass/Vol] 4.1 g/dL 2.2-4.2 [facility] Lipase [Catalytic activity/Vol] 179 U/L - [facility] Comment on above: Please note:LIPASE r evised reference range effective 22. New Lipase methodology. Expected to produce lower values than the previous assay method. NEW Reference Range: 13 - 75 U/L Urea nitrogen/Creatinine [Mass ratio] 10.4 mg/mg 10-20 [facility] - Hematology and Cell countsOrdered By: [facility] on 04-16-2023 Erythrocyte distribution width (RBC) [Entitic vol] 40.0 fL 35.1-43.9 [facility] Erythrocyte distribution width (RBC) [Ratio] 12.1 % 11.6-14.6 [facility] Immature granulocytes/100 WBC (Bld) 0.400 % 0.0-0.9 [facility] Comment on above: IG% - Immature Granu locytes (promyelocytes, myelocytes and metamyelocytes) > 1% indicates that a LEFT SHIFT is Present. MCH (RBC) [Entitic mass] 29.9 pg 27.0-32.0 [facility] Nucleated RBC/100 WBC (Bld) [Ratio] 0 % 0-5 [facility] MCHC Auto (RBC) [Mass/Vol]Or dered By: Erasmo Cage on 04-16-2023 MCHC (RBC) [Mass/Vol] 33.1 g/dL 32-36 [facility] Mucus LM Ql (Urine sed)Order ed By: Erasmo Cage on 04-16-2023 Mucus Ql (Urine sed) 0 SEEN /hpf [facility] Nitrite Test strip Ql (U)Ord ered By: Erasmo Cage on 04-16-2023 Nitrite Ql (U) Negative Negative [facility] No Panel InformationOrdered By: Erasmo Cage on 04-16-2023 Estimated Creatinine Clearance Calc 82.96 ml/min [facility] Estimated GFR (MDRD) Amer 111 mL/min >60 [facility] Comment on above: GFR Calc Estimated GFR (MDRD) Non-Af Amer 92 mL/min >60 [facility] Comment on above: Non- GFR Calc Platelets bldOrdered By: Padma Cage on 04-16-2023 Platelets (Bld) [#/Vol] 297 10*3/uL 150-450 [facility] Protein Test strip Ql (U)Ord ered By: Erasmo Cage on 04-16-2023 Protein Ql (U) 15 mg/dl Negative [facility] Serum or plasma albumin gera urement (mass/volume)Ordered By: Erasmo Cage on 04-16-2023 Albumin [Mass/Vol] 3.7 g/dL 3.2-5.0 [facility] Serum or plasma albumin/glob ulin mass ratioOrdered By: Erasmo Cage on 04-16-2023 Albumin/Globulin [Mass ratio] 0.9 {ratio} 0.9-2.4 [facility] Serum or plasma calcium gera urement (mass/volume)Ordered By: Erasmo Cage on 04-16-2023 Calcium [Mass/Vol] 9.1 mg/dL 8.5-10.1 [facility] Serum or plasma creatinine m easurement (mass/volume)Ordered By: Erasmo Cage on 04-16-2023 Creatinine [Mass/Vol] 0.77 mg/dL 0.55-1.02 [facility] Comment on above: The validity of the calculated GFR & GFRAA in patients over 70 years has not been determined. Clinical correlation is essential. Serum or plasma urea nitroge n measurement (mass/volume)Ordered By: Erasmo Cage on 04-16-2023 Urea nitrogen [Mass/Vol] 8 mg/dL 7-18 [facility] Squamous epithelial cells de tection in urine sediment by light microscopyOrdered By: Erasmo Cage on 04-16-2023 Epithelial cells.squamous LM Ql (Urine sed) 0-5 SEEN /hpf 5-10 [facility] Thin prep Papanicolaou smear with manual screeningOrdered By: Erasmo Cage on 04-16-2023 Thin prep Papanicolaou smear with manual screening 7 U/L 15-37 [facility] Thin prep Papanicolaou smear with manual screening 4 5-15 [facility] Urine blood detectionOrdered By: Erasmo Cage on 04-16-2023 RBC Ql (U) 250 /ul Negative [facility] RBC Ql (U) 0 SEEN /hpf 0-5 [facility] Urine clarityOrdered By: Padma Cage on 04-16-2023 Clarity (U) Clear Clear [facility] Urine color determinationOrd ered By: Erasmo Cage on 04-16-2023 Color (U) Yellow Yellow [facility] Urine glucose detectionOrder ed By: Erasmo Cage on 04-16-2023 Glucose Ql (U) Normal mg/dl Normal [facility] Urine leukocyte esterase det ection by dipstickOrdered By: Erasmo Cage on 04-16-2023 Leukocyte esterase Test strip Ql (U) 25 /ul Negative [facility] Urine pHOrdered By: Erasmo Bustillo gur on 04-16-2023 pH (U) 7.0 [pH] 5.0 - 8.0 [facility] Urine sediment bacteria coun t by microscopy (number/high power field)Ordered By: Erasmo Cage on 04-16-2023 Bacteria LM.HPF (Urine sed) [#/Area] 0 /[HPF] None Seen [facility] Urine specific gravity measu rementOrdered By: [facility] on 04-16-2023 Specific gravity (U) [Rel density] 1.010 1.002-1.03 0 [facility] Urobilinogen Auto test strip Ql (U)Ordered By: Erasmo Cage on 04-16-2023 Urobilinogen Ql (U) Normal mg/dl Normal [facility] Absolute lymphocyte countOrd ered By: Rey Alcaraz on 02-22-2023 Lymphocytes Auto (Unsp spec) [#/Vol] 2.44 10*3/uL 0.83-4.51 [facility] Albumin Elph [Mass/Vol]Order ed By: Rey Alcaraz on 02-22-2023 Albumin [Mass/Vol] 3.7 g/dL 2.9-4.4 [facility] Atypical perinuclear antineu trophil cytoplasmic antibodies measurementOrdered By: eRy Alcaraz on 02-22-2023 Neutrophil cytoplasmic Ab.perinuclear.atypical IF (S) [Titer] <1:20 titer Neg:<1:20 [facility] Comment on above: The atypical pANCA p attern has been observed in asignificant percentage of patients with ulcerative colitis,primary sclerosing cholangitis and autoimmune hepatitis. Basophil percentageOrdered B y: Rey Alcaraz on 02-22-2023 Amylase [Catalytic activity/Vol] 24 U/L 25-115 [facility] Basophil percentage < 0.2 AI 0.0-0.9 [facility] Basophils/100 WBC (Bld) 0.4 % 0-1 [facility] Bilirubin [Mass/Vol] 0.30 mg/dL 0.20-1.00 [facility] Comment on above: For patients on eltr ombopag therapy, use of Dimension [place] TBIL is not recommended. Chloride [Moles/Vol] 107 mmol/L 98-107 [facility] Eosinophils/100 WBC (Bld) 0.7 % 0-5 [facility] Glucose [Mass/Vol] 108 mg/dL 74-106 [facility] Comment on above: Fasting Glucose resu lt from 100 to 125 mg/dL suggests IMPAIRED HOMEOSTASIS per A.D.A. criteria. LDH [Catalytic activity/Vol] 137 U/L 84-246 [facility] Neutrophils (Bld) [#/Vol] 2.8 10*3/uL 2.0-7.7 [facility] Neutrophils/100 WBC (Bld) 48.9 % 47-70 [facility] Potassium [Moles/Vol] 4.0 mmol/L 3.5-5.1 [facility] Protein [Mass/Vol] 7.4 g/dL 6.4-8.2 [facility] Sodium [Moles/Vol] 139 mmol/L 136-145 [facility] WBC (Bld) [#/Vol] 5.7 10*3/uL 4.4-11.0 [facility] Blood erythrocytes count (nu mber/volume)Ordered By: Rey Alcaraz on 02-22-2023 RBC (Bld) [#/Vol] 3.84 10*6/uL 4.2-5.4 [facility] Blood hemoglobin measurement (mass/volume)Ordered By: Rey Alcaraz on 02-22-2023 Hemoglobin (Bld) [Mass/Vol] 11.5 g/dL 12.0-15.0 [facility] Blood lymphocytes/100 leukoc ytesOrdered By: Rey Alcaraz on 02-22-2023 Lymphocytes/100 WBC (Bld) 42.8 % 19-41 [facility] Blood monocytes/100 leukocyt esOrdered By: Rey Alcaraz on 02-22-2023 Monocytes/100 WBC (Bld) 6.8 % 0-10 [facility] Blood platelet mean volumeOr dered By: Rey Alcaraz on 02-22-2023 Platelet mean volume (Bld) [Entitic vol] 9.6 fL 6.2-12.0 [facility] Clostridium difficile detect ion by polymerase chain reactionOrdered By: Rey Alcaraz on 02-22-2023 C. difficile DNA PAULO+probe Ql (Unsp spec) [facility] Determination of erythrocyte mean corpuscular volume (MCV)Ordered By: Rey Alcaraz on 02-22-2023 MCV (RBC) [Entitic vol] 96.1 fL 81-99 [facility] Erythrocyte sedimentation ra teOrdered By: Rey Alcaraz on 02-22-2023 ESR (Bld) [Velocity] 12 mm/h 0-30 [facility] Hematocrit Auto (Bld) [Volum e fraction]Ordered By: Rey Alcaraz on 02-22-2023 Hematocrit (Bld) [Volume fraction] 36.9 % 37-47 [facility] Hemoglobin in reticulocytes (mass per reticulocyte)Ordered By: Rey Alcaraz on 02-22-2023 Hemoglobin (Reticulocytes) [Entitic mass] 34.2 pg 30-35 [facility] Interpretation of serum or p lasma protein pattern by immunofixation (narrative resultOrdered By: Rey Alcaraz on 02-22-2023 Protein Fractions Immunofixation Jesse [Interp] See comment [facility] Comment on above: Result: Not Observed Iron measurement (mass/mass) Ordered By: Rey Alcaraz on 02-22-2023 Iron (Unsp spec) [Mass/Mass] 66 ug/dL 50-170 [facility] - Chemistry and C hemistry - challengeOrdered By: Rey Alcaraz on 02-22-2023 ALP [Catalytic activity/Vol] 89 U/L 45-117 [facility] ALT [Catalytic activity/Vol] 19 U/L 13-56 [facility] CO2 [Moles/Vol] 28.0 mmol/L 21.0-32.0 [facility] Cobalamin (Vitamin B12) [Mass/Vol] 735 pg/mL 211-911 [facility] Lipase [Catalytic activity/Vol] 32 U/L 13-75 [facility] Comment on above: Please note:LIPASE r evised reference range effective 22. New Lipase methodology. Expected to produce lower values than the previous assay method. NEW Reference Range: 13 - 75 U/L Urea nitrogen/Creatinine [Mass ratio] 15.9 mg/mg 10-20 [facility] - Hematology and Cell countsOrdered By: Rey Alcaraz on 02-22-2023 Erythrocyte distribution width (RBC) [Entitic vol] 42.2 fL 35.1-43.9 [facility] Erythrocyte distribution width (RBC) [Ratio] 12.0 % 11.6-14.6 [facility] Immature granulocytes/100 WBC (Bld) 0.400 % 0.0-0.9 [facility] Comment on above: IG% - Immature Granu locytes (promyelocytes, myelocytes and metamyelocytes) > 1% indicates that a LEFT SHIFT is Present. MCH (RBC) [Entitic mass] 29.9 pg 27.0-32.0 [facility] Nucleated RBC/100 WBC (Bld) [Ratio] 0 % 0-5 [facility] MCHC Auto (RBC) [Mass/Vol]Or dered By: Rey Alcaraz on 02-22-2023 MCHC (RBC) [Mass/Vol] 31.2 g/dL 32-36 [facility] No Panel InformationOrdered By: Rey Alcaraz on 02-22-2023 Giardia Antigen (TREY) [facility] Stool Calprotectin 61 ug/g 0-120 [facility] Comment on above: Concentration Interp retation Follow-Up< 5 - 50 ug/g Normal None>50 -120 ug/g Borderline Re-evaluate in 4-6 weeks >120 ug/g Abnormal Repeat as clinically indicatedPerformed at: [facility] [id number] Director: Jamin Mcguire PhD, Phone: [phone] at: [employer] [facility] [employer] [id number] Director: Alejandro Ye MD, Phone: [phone] Stool Neutral Fats Normal . [facility] Comment on above: Normal (<60 Droplets /HPF) Stool Pancreatic Elastase 337 >200 [facility] Comment on above: Result Units: ug Jada st./g Severe Pancreatic Insufficiency: <100 Moderate Pancreatic Insufficiency: 100 - 200 Normal: >200Performed at: [employer] [facility] [employer] [id number] Director: Alejandro Ye MD, Phone: [phone] Addendum Document Comment . [facility] Comment on above: Protein electrophore sis scan will follow via computer,mail, or application development consultant delivery. Centromere B Antibody <0.2 AI 0.0-0.9 [facility] Endomysial IgA Antibody Negative Negative [facility] Estimated GFR (MDRD) Amer 125 mL/min >60 [facility] Comment on above: GFR Calc Estimated GFR (MDRD) Non-Af Amer 104 mL/min >60 [facility] Comment on above: Non- GFR Calc Hepatitis A IgM Antibody Negative Negative [facility] Hepatitis B Core IgM Antibody Negative Negative [facility] Hepatitis C Antibody (EIA) Non-Reactive Non Reactive [facility] Hepatitis C Antibody Comment Comment . [facility] Comment on above: Not infected with HC V unless early or acute infection issuspected (which may be delayed in an immunocompromisedindividual), or other evidence exists to indicate HCVinfection. Immature Reticulocyte Fraction 9.10 % 3.00-15.90 [facility] Immunoglobulin E 88 IU/mL 6-495 [facility] Comment on above: Performed at: [email or web address] [facility] [address] [employer] [address] [id number] Director: Jamin Mcguire PhD, Phone: [phone] at: - [facility] [id number] Director: Alejandro Ye MD, Phone: [phone] Miscellaneous Test See comment [facility] Comment on above: Scanned image report available in EMR Reticulocyte Count 1.68 % 0.5-1.5 [facility] [employer] Antibody 2.4 AI 0.0-0.9 [facility] Thyroid Stimulating Hormone (TSH) 1.05 uIU/mL 0.358-3.74 [facility] Total Iron Binding Capacity 309 ug/dL 250-450 [facility] Ova and parasitesOrdered By: Rey Friend on 02-22-2023 Ova and parasites identified LM Nom (Unsp spec) [facility] Platelets bldOrdered By: Henrique carranza Friend on 02-22-2023 Platelets (Bld) [#/Vol] 286 10*3/uL 150-450 [facility] Qualitative QuantiFERON-TB g old in tube testOrdered By: Rey Alcaraz on 10-16-2023 M. tuberculosis tuberculin stim IFN-g Ql (Bld) 0.12 IU/mL . [facility] Qualitative fecal fat or lip idsOrdered By: Rey Alcaraz on 02-22-2023 Fat Ql (Stl) Normal . [facility] Comment on above: Normal (<100 Droplet s/HPF) Serum DNA double strand anti body assay (units/volume)Ordered By: Rey Alcaraz on 02-22-2023 DNA double strand Ab Qn (S) 27 [IU]/mL 0-9 [facility] Comment on above: Negative <5 Equivoca l 5 - 9 Positive >9 Serum Tricia-1 antibody assay (u nits/volume)Ordered By: Rey Alcaraz on 02-22-2023 Tricia-1 extractable nuclear Ab Qn (S) <0.2 AI 0.0-0.9 [facility] Serum Scl-70 extractable nuc lear antibody assay (units/volume)Ordered By: Rey Alcaraz on 02-22-2023 SCL-70 extractable nuclear Ab Qn (S) <0.2 AI 0.0-0.9 [facility] Serum Fontana extractable nucl ear antibody detectionOrdered By: Rey Alcaraz on 02-22-2023 Fontana extractable nuclear Ab Ql (S) <0.2 AI 0.0-0.9 [facility] Serum uodjr-3-snrhzizi measu rement by electrophoresisOrdered By: Rey Alcaraz on 02-22-2023 Alpha 1 globulin Elph [Mass/Vol] 0.2 g/dL 0.0-0.4 [facility] Alpha 1 globulin Elph [Mass/Vol] 0.7 g/dL 0.4-1.0 [facility] Serum classic neutrophil cyt oplasmic antibody assay (units/volume)Ordered By: Rey Alcaraz on 02-22-2023 Neutrophil cytoplasmic Ab.classic Qn (S) <1:20 titer Neg:<1:20 [facility] Serum globulin measurement ( mass/volume)Ordered By: Rey Alcaraz on 02-22-2023 Globulin (S) [Mass/Vol] 3.5 g/dL 2.2-3.9 [facility] Serum mitochondria antibody detectionOrdered By: Rey Alcaraz on 02-22-2023 Mitochondria Ab Ql (S) <20.0 Units 0.0-20.0 [facility] Comment on above: Negative 0.0 - 20.0 Equivocal 20.1 - 24.9 Positive >24.9Mitochondrial (M2) Antibodies are found in 90-96% ofpatients with primary biliary cirrhosis. Serum or plasma C reactive p rotein measurement (mass/volume)Ordered By: Rey Alcaraz on 02-22-2023 CRP [Mass/Vol] 18.10 mg/L 0.0-3.0 [facility] Comment on above: C-Reactive Protein ( CRP) provides useful information for thediagnosis, therapy and monitoring of inflammatory processesand associated diseases. For the evaluation of Relative Riskfor Cardiovascular Disease, a High Sensitivity CRP (HSCRP)should be ordered. Serum or plasma IgA measurem ent (mass/volume)Ordered By: Rey Alcaraz on 02-22-2023 IgA [Mass/Vol] 348 mg/dL 87-352 [facility] Serum or plasma IgG measurem ent (mass/volume)Ordered By: Rey Alcaraz on 02-22-2023 IgG [Mass/Vol] 1309 mg/dL [phone] [facility] Serum or plasma IgM measurem ent (mass/volume)Ordered By: Rey Alcaraz on 02-22-2023 IgM [Mass/Vol] 86 mg/dL 26-217 [facility] Serum or plasma albumin gera urement (mass/volume)Ordered By: Rey Alcaraz on 02-22-2023 Albumin [Mass/Vol] 3.4 g/dL 3.2-5.0 [facility] Serum or plasma albumin/glob ulin mass ratioOrdered By: Rey Alcaraz on 02-22-2023 Albumin/Globulin [Mass ratio] 0.8 {ratio} 0.9-2.4 [facility] Serum or plasma beta globuli n measurement by electrophoresis (mass/volume)Ordered By: Rey Alcaraz on 02-22-2023 Beta globulin Elph [Mass/Vol] 1.1 g/dL 0.7-1.3 [facility] Serum or plasma calcitriol m easurement (mass/volume)Ordered By: Rey Alcaraz on 02-22-2023 1,25-dihydroxyvitamin D3 [Mass/Vol] 66.0 pg/mL 24.8-81.5 [facility] Comment on above: Performed at: [facility] - [facility] [employer] [id number] Director: Jamin Mcguire PhD, Phone: [phone] at: - [employer] [id number] Director: Alejandro Ye MD, Phone: [phone] Serum or plasma calcium gera urement (mass/volume)Ordered By: Rey Alcaraz on 02-22-2023 Calcium [Mass/Vol] 8.8 mg/dL 8.5-10.1 [facility] Serum or plasma creatinine m easurement (mass/volume)Ordered By: Rey Alcaraz on 02-22-2023 Creatinine [Mass/Vol] 0.69 mg/dL 0.55-1.02 [facility] Comment on above: The validity of the calculated GFR & GFRAA in patients over 70 years has not been determined. Clinical correlation is essential. Serum or plasma ferritin saba surement (mass/volume)Ordered By: Rey Alcaraz on 02-22-2023 Ferritin [Mass/Vol] 58 ng/mL 8-252 [facility] Serum or plasma folate measu rement (mass/volume)Ordered By: Rey Alcaraz on 02-22-2023 Folate [Mass/Vol] 14.90 ng/mL 3.1-55.4 [facility] Serum or plasma gamma globul in measurement by electrophoresis (mass/volume)Ordered By: Rey Alcaraz on 02-22-2023 Gamma globulin Elph [Mass/Vol] 1.4 g/dL 0.4-1.8 [facility] Serum or plasma hepatitis B virus surface antigen detection by immunoassayOrdered By: Rey Alcaraz on 02-22-2023 HBV surface Ag IA Ql Negative Negative [facility] Serum or plasma immunoelectr ophoresis interpretation (nominal result)Ordered By: Rey Alcaraz on 02-22-2023 Interpretation IEP [Interp] Comment . [facility] Comment on above: No monoclonality det ected. Serum or plasma urea nitroge n measurement (mass/volume)Ordered By: Rey Alcaraz on 02-22-2023 Urea nitrogen [Mass/Vol] 11 mg/dL 7-18 [facility] Serum perinuclear neutrophil cytoplasmic antibody titer by immunofluorescenceOrdered By: Rey Alcaraz on 02-22-2023 Neutrophil cytoplasmic Ab.perinuclear IF (S) [Titer] <1:20 titer Neg:<1:20 [facility] Comment on above: The presence of posi tive fluorescence exhibiting P-ANCA orC-ANCA patterns alone is not specific for the diagnosis ofWegener's Granulomatosis (WG) or microscopic polyangiitis.Decisions about treatment should not be based solely onANCA IFA results. The International ANCA Group Consensusrecommends follow up testing of positive sera with both TN-3 and MPO-ANCA enzyme immunoassays. As many as 5% serumsamples are positive only by EIA. Ref. AM J Clin Qzznks6603;111:507-513. Serum tissue transglutaminas e IgA antibody assay (units/volume)Ordered By: Rey Alcaraz on 02-22-2023 tTG IgA Qn (S) <2 U/mL 0-3 [facility] Comment on above: Negative 0 - 3 Weak Positive 4 - 10 Positive >10 Tissue Transglutaminase (tTG) has been identified as the endomysial antigen. Studies have demonstr- ated that endomysial IgA antibodies have over 99% specificity for gluten sensitive enteropathy. Stool enteric pathogen panel by probe and target amplification methodOrdered By: Rey Alcaraz on 02-22-2023 Gastrointestinal pathogens panel PAULO+probe (Stl) [facility] Stool lactoferrin detection by immunoassayOrdered By: Rey Alcaraz on 02-22-2023 Lactoferrin IA Ql (Stl) [facility] Thin prep Papanicolaou smear with manual screeningOrdered By: Rey Alcaraz on 02-22-2023 Thin prep Papanicolaou smear with manual screening 8 U/L 15-37 [facility] Thin prep Papanicolaou smear with manual screening 4 5-15 [facility] Thin prep Papanicolaou smear with manual screening 1.1 0.7-1.7 [facility] Thin prep Papanicolaou smear with manual screening Comment . [facility] Comment on above: QuantiFERON-TB Gold Plus is a qualitative indirect test forM tuberculosis infection (including disease) and isintended for use in conjunction with risk assessment,radiography, and other medical and diagnostic evaluations.The QuantiFERON-TB Gold Plus result is determined bysubtracting the Nil value from either TB antigen (Ag)value. The Mitogen tube serves as a control for the test. Thin prep Papanicolaou smear with manual screening 0.14 IU/mL . [facility] Thin prep Papanicolaou smear with manual screening 0.23 IU/mL . [facility] Thin prep Papanicolaou smear with manual screening > 10.00 IU/mL . [facility] Thin prep Papanicolaou smear with manual screening Negative Negative [facility] Comment on above: No response to M tub erculosis antigens detected.Infection with M tuberculosis is unlikely, but high riskindividuals should be considered for additional testing(ATS/IDSA/CDC Clinical Practice Guidelines, 2017). Thereference range is an Antigen minus Nil result of <0.35IU/mL.The specimen received for QuantiFERON testing was incubatedby the ordering institution. Specific procedures outlinedin our Directory of Services and in the package insert forthe QuantiFERON Gold (In Tube) test must be followed toenable for proper stimulation of cells for the productionof interferon gamma. Chemiluminescence immunoassaymethodology Total protein bloodOrdered B y: Rey Alcaraz on 02-22-2023 Protein [Mass/Vol] 7.2 g/dL 6.0-8.5 [facility] Whole blood hemoglobin A1c/t otal hemoglobin ratio (mass fraction)Ordered By: Rey Alcaraz on 02-22-2023 HbA1c (Bld) [Mass fraction] 5.0 % 3.8-5.6 [facility] Comment on above: Normal < 5.7 % Predi abetic 5.7 - 6.4 % Diabetic >or= 6.5 % Please note range changes. Basophil percentageon 2021 WBC (Bld) [#/Vol] 7.1 10*3/uL 4.4-11.0 [facility] Work Phone: Blood erythrocytes count (nu mber/volume)on 01-15-2022 RBC (Bld) [#/Vol] 4.18 10*6/uL 4.2-5.4 [facility] Work Phone: Blood hemoglobin measurement (mass/volume)on 01-15-2022 Hemoglobin (Bld) [Mass/Vol] 12.4 g/dL 12.0-15.0 [facility] Work Phone: Blood platelet mean volumeon 01-15-2022 Platelet mean volume (Bld) [Entitic vol] 9.1 fL 6.2-12.0 [facility] Work Phone: Determination of erythrocyte mean corpuscular volume (MCV)on 01-15-2022 MCV (RBC) [Entitic vol] 90.9 fL 81-99 [facility] Work Phone: Hematocrit Auto (Bld) [Volum e fraction]on 01-15-2022 Hematocrit (Bld) [Volume fraction] 38.0 % 37-47 [facility] Work Phone: Laboratory - Chemistry and C hemistry - challengeon 01-15-2022 HCG ( test) Ql (U) Negative [facility] Work Phone: Comment on above: Very dilute urine sp ecimens, as indicated by a low specificgravity, may not contain shared services representative levels of hCG. If is still suspected, a first morning urinespecimen should be collected 48 hours later and tested. Laboratory - Hematology and Cell countson 01-15-2022 Erythrocyte distribution width (RBC) [Entitic vol] 41.6 fL 35.1-43.9 [facility] Work Phone: Erythrocyte distribution width (RBC) [Ratio] 12.5 % 11.6-14.6 [facility] Work Phone: MCH (RBC) [Entitic mass] 29.7 pg 27.0-32.0 [facility] Work Phone: MCHC Auto (RBC) [Mass/Vol]on 01-15-2022 MCHC (RBC) [Mass/Vol] 32.6 g/dL 32-36 [facility] Work [facility]: Platelets bldon 01-15-2022 Platelets (Bld) [#/Vol] 292 10*3/uL 150450 [facility] Work Phone: STREP A MOLECULAR (POC)on Procedural Control Valid [facility] Strep A (POCT) Negative Negative [facility] HCG QUAL UR B/Oon 11-05-2021 status Negative neg - pos [facility] Quality Check Yes [facility] STREP A MOLECULAR (POC)on Procedural Control Valid [facility] Strep A (POCT) Negative Negative [facility] CNOVon 09-17-2021 CNOV Office Visit (AGGENS 7) ----- MARY GUILLEN ([id number]) 1990 F Date Time Provider Department 09/17/21 11:00 AM EDDY VALENCIAENS7 During your visit today, we recorded the following information about you: Pulse Blood pressure Weight Height 84/minute 101/79 86.2 kg 1.575 m Eddy Valencia MD 09/17/2021 1:03 PM Signed Eddy Valencia M.D. Colon AND Rectal Surgery 1 [facility], [address] [place] [address] SUBJECTIVE Mary Guillen is a 31 year old /Multicultural female With RLQ pain, possible Crohn's ileitis HPI The patient was referred by Drake Whiting [address] [facility] [id number] my recommendation will be sent back. The patient is a pleasant 31-year-old female who presents with right lower quadrant pain. She notes this has been present for the last year or so. She has had longstanding issues starting around 2015 when she was , which were suspected to be due to Svetlana cystitis, and she underwent a laparoscopic cholecystectomy at that time. After this she developed diarrhea with usually 4-5 oily loose bowel movements per day. She was trialed on cholestyramine which never seem to make much of a difference in the symptoms, and largely just dealt with these for the time since then. In the last year she began to develop right lower quadrant pain which is fairly persistent, present most of the time and becoming more severe especially when she eats certain things. She has had work-up of this including a colonoscopy which showed stenosis of the terminal ileum with biopsies showing chronic active enteritis and an ulcer, and a CT enterography showing distal ileitis and a fat-containing umbilical hernia. She was started on mesalamine and budesonide, noting that these have improved her stool frequency. She currently has bowel movements 1-2 times per day which are still loose but better than they had been. The pain persists despite the medication changes. She does note some longstanding heartburn which is relatively mild and was noted to have a small hiatal hernia on her upper endoscopy. Review of Systems Constitutional: Negative for chills, fever and weight loss. HENT: Negative for congestion, ear pain, hearing loss, sinus pain and sore throat. Eyes: Negative for blurred vision, double vision and pain. Respiratory: Negative for cough, shortness of breath and wheezing. Cardiovascular: Negative for chest pain, palpitations and leg swelling. Gastrointestinal: Positive for abdominal pain, diarrhea, heartburn, nausea and vomiting. Negative for constipation. Genitourinary: Negative for dysuria, frequency and urgency. Musculoskeletal: Negative for back pain, joint pain and neck pain. Skin: Negative for itching and rash. Neurological: Positive for weakness. Negative for dizziness and headaches. Endo/Heme/Allergies: Negative for environmental allergies. Bruises/bleeds easily. Psychiatric/Behavioral: Negative for depression and memory loss. The patient is nervous/anxious. The patient does not have insomnia. PAST MEDICAL HISTORY Diagnosis Date - Anemia - Asthma - Impaired fasting glucose 09/2014 - Miscarriage - Unspecified asthma(493.90) PAST SURGICAL HISTORY Procedure Laterality Date - CHOLECYSTECTOMY HX 2015 - COLONOSCOPY 07/23/2021 - EGD 07/23/2021 - INSERTION OF IUD 06/11/2009 Mirena - IUD REMOVAL (CERAMIC TILE SETTER DEPT)_*FL 02/2010 - NEXPLANON INSERTION 03/19/2014,10/2015 left arm - NEXPLANON REMOVAL 04/08/2017 - PAST SURGICAL HISTORY OF Left 12/29/2017 ORIF medial and lateral malleolus of trimalleolar ankle fracture; Dr. Jeri Ramesh - TYMPANOSTOMY LOCAL/TOPICAL ANESTHESIA Social History Tobacco Use - Smoking status: Never Smoker - Smokeless tobacco: Never Used Vaping Use - Vaping Use: Never used Substance Use Topics - Alcohol use: No - Drug use: No FAMILY HISTORY Problem Relation Age of Onset - No Known Problems Mother - No Known Problems Father - No Known Problems Sister - No Known Problems Sister - No Known Problems Sister - No Known Problems Sister - No Known Problems Brother - No Known Problems Brother - No Known Problems Brother - No Known Problems Brother - Cancer Maternal Grandmother liver and lung - Dementia Maternal Grandfather - COPD Maternal Grandfather - Hyperlipidemia Maternal Grandfather - Ulcerative Colitis Maternal Grandfather - Diabetes Paternal Grandmother - Asthma Son - Asthma Son The ROS, medical, surgical, family, and social history were reviewed by Eddy Valencia MD ALLERGIES Allergen Reactions - Morphine Rash, GI Upset - Sudafed [Pseudoephe* Intolerance heart palpations and loopy Current Outpatient Medications Medication Sig - dicyclomine (BENTYL) 20 mg tablet Take 1 tablet by mouth twice daily. - Mesalamine (P (more content not included)... Normal [facility] CT ENTEROGRAPHY W IVCONon CT ENTEROGRAPHY W IVCON * * *Final Repor t* * * DATE OF EXAM: Aug 15 2021 4:18PM [facility] [place] 0545 - CT ENTEROGRAPHY W IVCON / PROCEDURE REASON: K52.9-Inflammatory bowel disease * * * * Physician Interpretation * * * * EXAMINATION: CT ABDOMEN AND PELVIS WITH INTRAVENOUS CONTRAST AND NEUTRAL ORAL CONTRAST(CT ENTEROGRAPHY) HISTORY: Diarrhea. Colonoscopy demonstrated distal ileal stricture and ileitis TECHNIQUE: CT of the abdomen and pelvis using single phase Enterography technique CONTRAST: IV: 150 ml of Omnipaque 300 Oral: [address] Radiation dose: Integrated dose-length product (DLP) for this visit = 777 mGy*cm. CT Dose Reduction Employed: Automated exposure control (AEC) COMPARISON: None RESULT: GI Tract: Appendix appears normal. Small bowel: There is mild circumferential hyperenhancement of the distal 4 cm the terminal ileum. No definite associated wall thickening. There is also narrowing of the distal 1 cm terminal ileum with a caliber of about 6 mm. Colon and Rectum: No mural hyperenhancement or wall thickening. Strictures: None Fistulae/Sinus tracts: None Abscess: None Ancillary Findings related to Crohn's : None Abdomen: Liver: No mass. Biliary: No bile duct dilation. Gallbladder is absent. Spleen: No mass. No splenomegaly. Pancreas: No mass or duct dilation. Adrenals: No mass. Kidneys: No mass, calculus or hydronephrosis. Lymph nodes: No abdominal or pelvic lymphadenopathy. Mesentery/Peritoneum: No ascites or mass. Vasculature: The celiac axis and SMA are patent. The portal vein and branches, splenic vein, SMV, and hepatic veins are patent. No abdominal aortic aneurysm. Pelvis: No mass, ascites or fluid collection. Bones/Soft Tissues: Fat-containing umbilical hernia 2-3 cm in diameter Lung Bases: Unremarkable. IMPRESSION: Hyperemia of terminal ileum consistent with distal ileitis. Narrowed distal aspect of the ileum consistent with endoscopic finding of a stricture. Fat-containing umbilical hernia Scientologist: [facility] Transcribe Date/Time: Aug 15 2021 4:39P Dictated by : EDYTA SULLIVAN MD This examination was interpreted and the report reviewed and electronically signed by: EDYTA SULLIVAN MD on Aug 15 2021 4:50PM EST [id number] Normal [facility] Type and Scr,Prenatlon 09-19 ABO/RH(D) Positive Normal [facility] PREGUon 05-06-2018 HCG ( test) Ql (U) Negative Normal [facility] ([place]) Comment on above: Performed By: #### P REGU ####[id number] [place], [place] [address] test (u) int HCG not detected. Invalid Interpretation Code [facility] ([place]) Comment on above: Performed By: #### P REGU ####[id number] [place], [place] [address] XR ANKLE TWO VIEWS LEFTon Erythrocyte distribution width Auto Ratio (RBC) ORIGINALAP digital image LEFT ankle, 05/06/2018 at 3:40 PM CLINICAL STATEMENT: LEFT ANKLE HARDWARE REMOVAL. COMPARISON: None FINDINGS: There are areas of radiolucency in the distal fibula that are likely related to removed bolts. No fracture or dislocation is detected in AP projection. Interpreted By: Levi Wise MDPreliminary Report By: Levi Wise MDElectronically Signed By: eLvi Wise MD Dictated Date: 05/06/2018 4:09:15 PM Prelim Date: 05/06/2018 4:09:15 PM Sign Date: 05/06/2018 4:10:25 PM Normal [facility] ([place]) XR FLUORO < 1HR TECH TIMEon 05-06-2018 XR FLUORO < 1HR TECH TIME ORIGINALOperative image intensification LEFT ankle, 05/06/2018. Clinical information: LEFT ankle hardware removal. 2.6 seconds fluoroscopy lapsed during this procedure. Reference air kerma 31.2 microGy. No spot film images were recorded. Interpreted By: Levi Wise MDPreliminary Report By: Levi Wise MDElectronically Signed By: Levi Wise MD Dictated Date: 05/06/2018 3:52:39 PM Prelim Date: 05/06/2018 3:52:39 PM Sign Date: 05/06/2018 3:53:37 PM Normal [facility] ([place] PREGUon 03-04-2018 HCG ( test) Ql (U) Negative Normal [facility] [place] Comment on above: Performed By: #### P REGU ####[id number] [place], [place] [address] test (u) int HCG not detected. Invalid Interpretation Code [facility] ([place] Comment on above: Performed By: #### P REGU ####[id number] [place], [place] [address] Vital Signs Date Time Vital Sign Value Performing Clinician Faci lity 02-27-2025 15:22-0400 Diastolic blood pressure 70 mm[Hg] Dr. Drake Whiting DO Work Phone: [facility] 02-27-2025 15:22-0400 Heart rate 73 /min Dr. Drake Whiting DO Work Phone: [facility] 02-27-2025 15:22-0400 Respiratory rate 16 /min Dr. Drake Whiting DO Work Phone: [facility] 02-27-2025 15:22-0400 Systolic blood pressure 115 mm[Hg] Dr. Drake Whiting DO Work Phone: [facility] 02-27-2025 13:56-0400 Body height 157.[address] Drake Whiting DO Work Phone: [facility] 02-27-2025 13:56-0400 Body temperature 97 [degF] Dr. Drake Whiting DO Work Phone: [facility] 02-27-2025 13:56-0400 SaO2% (BldA) [Mass fraction] 97 % Dr. Drake Whiting DO Work Phone: [facility] 01-05-2025 13:20-0400 Body mass index (BMI) [Ratio] 34.73 kg/m2 Danna Ramirez APRN.RECORDING ARTIST Work Phone: [facility] 01-05-2025 13:20-0400 Body temperature 98.4 [degF] Danna Ramirez APRN.RECORDING ARTIST Work Phone: [facility] 01-05-2025 13:20-0400 Body weight 88.91 kg Danna Ramirez APRN.RECORDING ARTIST Work Phone: [facility] 01-05-2025 13:20-0400 Diastolic blood pressure 68 mm[Hg] Danna Ramirez APRN.RECORDING ARTIST Work Phone: [facility] 01-05-2025 13:20-0400 Heart rate 100 /min Danna Ramirez APRN.RECORDING ARTIST Work Phone: [facility] 01-05-2025 13:20-0400 SaO2% (BldA) [Mass fraction] 97 % Danna Ramirez APRN.RECORDING ARTIST Work Phone: [facility] 01-05-2025 13:20-0400 Systolic blood pressure 116 mm[Hg] Danna Ramirez APRN.RECORDING ARTIST Work Phone: [facility] 01-02-2025 15:48-0400 Body temperature 98.2 [degF] Dr. Drake Whiting DO Work Phone: [facility] 01-02-2025 15:48-0400 Diastolic blood pressure 62 mm[Hg] Dr. Drake Whiting DO Work Phone: [phone](703)[phone] [place] [address] 01-02-2025 15:48-0400 Heart rate 82 /min Dr. Drake Whiting DO Work Phone: [phone])[phone] [place] [address] 01-02-2025 15:48-0400 Respiratory rate 16 /min Dr. Drake Whiting DO Work Phone: 6(363)[phone] [place] [address] 01-02-2025 15:48-0400 SaO2% (BldA) [Mass fraction] 99 % Dr. Drake Whiting DO Work Phone: 3(659)[phone] [place] [address] 01-02-2025 15:48-0400 Systolic blood pressure 101 mm[Hg] Dr. Drake Whiting DO Work Phone: [phone](187)[phone] [place] [address] 01-02-2025 14:40-0400 Body height 157.[address] Drake Whiting DO Work Phone: 0(807)935-842830 [place] [address] 01-02-2025 14:40-0400 Body mass index (BMI) [Ratio] 33.8 kg/m2 Dr. Drake Whiting DO Work Phone: 0(126)[phone] [place] [address] 01-02-2025 14:40-0400 Body weight 83.[address] Drake Whiting DO Work Phone: [phone])[phone] [place] [address] 01-02-2025 14:22-0400 Body mass index (BMI) [Ratio] 34.92 kg/m2 Lexie Byers APRN.RECORDING ARTIST Work Phone: [facility] 01-02-2025 14:22-0400 Body temperature 97.9 [degF] Lexie Byers APRN.RECORDING ARTIST Work Phone: [facility] 01-02-2025 14:22-0400 Body weight 89.4 kg Lexie Byers APRN.RECORDING ARTIST Work Phone: [facility] 01-02-2025 14:22-0400 Diastolic blood pressure 76 mm[Hg] Lexie Praisler-Wood WARP PICKER.RECORDING ARTIST Work Phone: [facility] 01-02-2025 14:22-0400 Heart rate 82 /min Lexie Praisler-Wood WARP PICKER.RECORDING ARTIST Work Phone: [facility] [facility] 01-02-2025 14:22-0400 Respiratory rate 16 /min Lexie Praisler-Wood [employer].RECORDING ARTIST Work Phone: [facility] 01-02-2025 14:22-0400 SaO2% (BldA) [Mass fraction] 98 % Lexie Praisler-Wood [employer].RECORDING ARTIST Work Phone: [facility] 01-02-2025 14:22-0400 Systolic blood pressure 112 mm[Hg] Lexie Praisler-Wood [employer].RECORDING ARTIST Work Phone: [facility] 11-21-2024 14:23-0400 Body mass index (BMI) [Ratio] 34.77 kg/m2 Ravinder Miranda MD Work Phone: [facility] 11-21-2024 14:23-0400 Body temperature 98.6 [degF] Ravinder Miranda MD Work Phone: [facility] 11-21-2024 14:23-0400 Body weight 89 kg Ravinder Miranda MD Work Phone: [facility] 11-21-2024 14:23-0400 Diastolic blood pressure 76 mm[Hg] Ravinder Miranda MD Work Phone: [facility] 11-21-2024 14:23-0400 Heart rate 80 /min Ravinder Miranda MD Work Phone: [facility] 11-21-2024 14:23-0400 Respiratory rate 18 /min Ravinder Miranda MD Work Phone: [facility] 11-21-2024 14:23-0400 SaO2% (BldA) [Mass fraction] 96 % Ravinder Miranda MD Work Phone: [facility] 11-21-2024 14:23-0400 Systolic blood pressure 102 mm[Hg] Ravinder Miranda MD Work Phone: [facility] 11-09-2024 12:22-0400 Body height 157.[address] Drake Whiting DO Work Phone: 5(420)961-733795 [place] [address] 11-09-2024 12:22-0400 Body temperature 97.2 [degF] Dr. Drake Whiting DO Work Phone: [facility] 11-09-2024 12:22-0400 Diastolic blood pressure 68 mm[Hg] Dr. Drake Whiting DO Work Phone: 4(434)974-532730 [place] [address] 11-09-2024 12:22-0400 Heart rate 89 /min Dr. Drake Whiting DO Work Phone: 3(848)258-251130 [place] [address] 11-09-2024 12:22-0400 Respiratory rate 16 /min Dr. Drake Whiting DO Work Phone: 2(316)048-676530 [place] [address] 11-09-2024 12:22-0400 SaO2% (BldA) [Mass fraction] 99 % Dr. Drake Whiting DO Work Phone: 6(114)801-048530 [place] [address] 11-09-2024 12:22-0400 Systolic blood pressure 113 mm[Hg] Dr. Drake Whiting DO Work Phone: 8(767)985-000495 [place] [address] 10-12-2024 10:16-0400 Body temperature 96.6 [degF] Dr. Drake Whiting DO Work Phone: 8(408)110-240595 [place] [address] 10-12-2024 10:16-0400 Diastolic blood pressure 61 mm[Hg] Dr. Drake Whiting DO Work Phone: 8(407)502-182995 [place] [address] 10-12-2024 10:16-0400 Heart rate 75 /min Dr. Drake Whiting DO Work Phone: 3(474)603-952795 [place] [address] 10-12-2024 10:16-0400 Respiratory rate 16 /min Dr. Drake Whiting DO Work Phone: 5(713)311-383595 [place] [address] 10-12-2024 10:16-0400 SaO2% (BldA) [Mass fraction] 99 % Dr. Drake Whiting DO Work Phone: [facility] 10-12-2024 10:16-0400 Systolic blood pressure 105 mm[Hg] Dr. Drake Whiting DO Work Phone: [facility] 10-12-2024 09:19-0400 Body height 157.[address] Drake Whiting DO Work Phone: [facility] 09-28-2024 14:37-0400 Body temperature 96.6 [degF] Dr. Drake Whiting DO Work Phone: 8(772)853-332130 [place] [address] 09-28-2024 14:37-0400 Diastolic blood pressure 56 mm[Hg] Dr. Drake Whiting DO Work Phone: 5(555)687-268895 [place] [address] 09-28-2024 14:37-0400 Heart rate 84 /min Dr. Drake Whiting DO Work Phone: 2(143)994-320395 [place] [address] 09-28-2024 14:37-0400 Respiratory rate 16 /min Dr. Drake Whiting DO Work Phone: 0(805)853-280830 [place] [address] 09-28-2024 14:37-0400 SaO2% (BldA) [Mass fraction] 100 % Dr. Drake Whiting DO Work Phone: [facility] 09-28-2024 14:37-0400 Systolic blood pressure 102 mm[Hg] Dr. Drake Whiting DO Work Phone: [facility] 06-01-2024 14:09-0500 Body height 160 cm Toñito Johnson APRN.RECORDING ARTIST Work Phone: [facility] 06-01-2024 14:09-0500 Body mass index (BMI) [Ratio] 34.14 kg/m2 Toñito Johnson APRN.RECORDING ARTIST Work Phone: [facility] 06-01-2024 14:09-0500 Body temperature 98.01 [degF] Toñito Johnson APRN.RECORDING ARTIST Work Phone: [facility] 06-01-2024 14:09-0500 Body weight 87.4 kg Toñito Pimentelman W[employer]ER.RECORDING ARTIST Work Phone: [facility] 06-01-2024 14:09-0500 Diastolic blood pressure 82 mm[Hg] Toñito Pimentelman W[employer] P[employer]ER.RECORDING ARTIST Work Phone: [facility] 06-01-2024 14:09-0500 Heart rate 92 /min Toñitoadryan Pimentelman [employer] P[employer]ER.RECORDING ARTIST Work Phone: [facility] 06-01-2024 14:09-0500 SaO2% (BldA) [Mass fraction] 96 % Toñitoadryan Pimentelman W[employer] PICKER.RECORDING ARTIST Work Phone: [facility] 06-01-2024 14:09-0500 Systolic blood pressure 118 mm[Hg] Toñito Pimentelman W[employer] PICKER.RECORDING ARTIST Work Phone: [facility] 05-30-2024 11:40-0500 Body mass index (BMI) [Ratio] 34.92 kg/m2 Deyvi Willoughby W[employer] P[employer]ER.RECORDING ARTIST Work Phone: [facility] 05-30-2024 11:40-0500 Body temperature 98.6 [degF] Deyvi Willoughby W[employer] P[employer]ER.RECORDING ARTIST Work Phone: [facility] 05-30-2024 11:40-0500 Body weight 86.6 kg Deyvi Willoughby W[employer] P[employer]ER.RECORDING ARTIST Work Phone: [facility] 05-30-2024 11:40-0500 Diastolic blood pressure 64 mm[Hg] Deyvi Willoughby W[employer] PICKER.RECORDING ARTIST Work Phone: [facility] 05-30-2024 11:40-0500 Heart rate 106 /min Deyvi Willoughby W[employer] PICKER.RECORDING ARTIST Work Phone: [facility] 05-30-2024 11:40-0500 Respiratory rate 18 /min Deyvi Willoughby W[employer] P[employer]ER.RECORDING ARTIST Work Phone: [facility] 05-30-2024 11:40-0500 SaO2% (BldA) [Mass fraction] 95 % Deyvi Willoughby W[employer] PICKER.RECORDING ARTIST Work Phone: [facility] 05-30-2024 11:40-0500 Systolic blood pressure 106 mm[Hg] Deyvi Willoughby W[employer] P[employer]ER.RECORDING ARTIST Work Phone: [facility] 02-15-2024 10:27-0400 Body mass index (BMI) [Ratio] 35 kg/m2 Deyvi Willoughby W[employer] P[employer]ER.RECORDING ARTIST Work Phone: [facility] 02-15-2024 10:27-0400 Body temperature 98.29 [degF] Deyvi Willoughby W[employer] PICKER.RECORDING ARTIST Work Phone: [facility] 02-15-2024 10:27-0400 Body weight 86.8 kg Deyvi Willoughby W[employer] PICKER.RECORDING ARTIST Work Phone: [facility] 02-15-2024 10:27-0400 Diastolic blood pressure 70 mm[Hg] Deyvi Willoughby W[employer] PICKER.RECORDING ARTIST Work Phone: [facility] 02-15-2024 10:27-0400 Heart rate 102 /min Deyvi Willoughby APRN.RECORDING ARTIST Work Phone: [facility] 02-15-2024 10:27-0400 Respiratory rate 16 /min Deyvi Willoughby APRN.RECORDING ARTIST Work Phone: [facility] 02-15-2024 10:27-0400 SaO2% (BldA) [Mass fraction] 99 % Deyvi Willoughby APRN.RECORDING ARTIST Work Phone: [facility] 02-15-2024 10:27-0400 Systolic blood pressure 122 mm[Hg] Deyvi Willoughby APRN.RECORDING ARTIST Work Phone: [facility] 02-10-2024 13:58-0400 Body height 157.5 cm Angeles Cruz APRN.RECORDING ARTIST Work Phone: [facility] 02-10-2024 13:58-0400 Body mass index (BMI) [Ratio] 34.93 kg/m2 Angeles Cruz APRN.RECORDING ARTIST Work Phone: [facility] 02-10-2024 13:58-0400 Body weight 86.64 kg Angeles Cruz W[employer] P[employer]ER.RECORDING ARTIST Work Phone: [facility] 02-10-2024 13:58-0400 Diastolic blood pressure 72 mm[Hg] Angeles Cruz W[employer] PICKER.RECORDING ARTIST Work Phone: [facility] 02-10-2024 13:58-0400 Respiratory rate 14 /min Angeles Cruz W[employer] PICKER.RECORDING ARTIST Work Phone: [facility] 02-10-2024 13:58-0400 Systolic blood pressure 110 mm[Hg] Angeles Cruz W[employer] PICKER.RECORDING ARTIST Work Phone: [facility] 09-25-2023 09:59-0400 Body mass index (BMI) [Ratio] 34.11 kg/m2 Krislyn Aberegg PA Work Phone: [facility] 09-25-2023 09:59-0400 Body temperature 97.59 [degF] Krislyn Aberegg PA Work Phone: [facility] 09-25-2023 09:59-0400 Body weight 84.6 kg Krislyn Aberegg PA Work Phone: [facility] 09-25-2023 09:59-0400 Diastolic blood pressure 76 mm[Hg] Krislyn Aberegg PA Work Phone: [facility] 09-25-2023 09:59-0400 Heart rate 92 /min Krislyn Aberegg PA Work Phone: [facility] 09-25-2023 09:59-0400 Respiratory rate 16 /min Krislyn Aberegg PA Work Phone: [facility] 09-25-2023 09:59-0400 SaO2% (BldA) [Mass fraction] 98 % Krislyn Aberegg PA Work Phone: [facility] 09-25-2023 09:59-0400 Systolic blood pressure 122 mm[Hg] Krislyn Aberegg PA Work Phone: [facility] 06-01-2023 15:36-0500 Body temperature 98.8 [degF] Dr. Drake Whiting Work Phone: 1(274)657-521830 [place] [address] 06-01-2023 15:36-0500 Diastolic blood pressure 57 mm[Hg] Dr. Drake Whiting Work Phone: 2(205)376-742330 [place] [address] 06-01-2023 15:36-0500 Heart rate 81 /min Dr. Drake Whiting Work Phone: 2(580)495-608430 [place] [address] 06-01-2023 15:36-0500 Respiratory rate 16 /min Dr. Drake Whiting Work Phone: 5(525)631-038130 [place] [address] 06-01-2023 15:36-0500 SaO2% (BldA) [Mass fraction] 97 % Dr. Drake Whiting Work Phone: 0(253)499-309430 [place] [address] 06-01-2023 15:36-0500 Systolic blood pressure 100 mm[Hg] Dr. Drake Whiting Work Phone: 5(934)347-933330 [place] [address] 06-01-2023 13:47-0500 Body height 157.[address] Drake Whiting Work Phone: 3(369)724-231230 [place] [address] 06-01-2023 13:47-0500 Body mass index (BMI) [Ratio] 34.4 kg/m2 Dr. Drake Whiting Work Phone: 1(964)982-826030 [place] [address] 06-01-2023 13:47-0500 Body weight 85.[address] Drake Whiting Work Phone: 8(812)629-570430 [place] [address] 04-16-2023 22:50-0500 Diastolic blood pressure 70 mm[Hg] Dr. Drake Whiting Work Phone: 6(667)778-435630 [place] [address] 04-16-2023 22:50-0500 Systolic blood pressure 132 mm[Hg] Dr. Drake Whiting Work Phone: 4(431)275-239630 [place] [address] 04-16-2023 18:21-0500 Body height 157.[address] Drake Whiting Work Phone: 5(400)083-253530 [place] [address] 04-16-2023 18:21-0500 Body mass index (BMI) [Ratio] 33.8 kg/m2 Dr. Drake Whiting Work Phone: 3(407)388-212030 [place] [address] 04-16-2023 18:21-0500 Body temperature 97.5 [degF] Dr. Drake Whiting Work Phone: 5(544)133-276330 [place] [address] 04-16-2023 18:21-0500 Body weight 83.[address] Drake Whiting Work Phone: 7(615)081-577030 [place] [address] 04-16-2023 18:21-0500 Heart rate 74 /min Dr. Drake Whiting Work Phone: 6(048)973-609830 [place] [address] 04-16-2023 18:21-0500 Respiratory rate 18 /min Dr. Drake Whiting Work Phone: 9(643)089-049230 [place] [address] 04-16-2023 18:21-0500 SaO2% (BldA) [Mass fraction] 91 % Dr. Drake Whiting Work Phone: 0(074)897-956030 [place] [address] 04-12-2023 07:18-0500 Body temperature 97.7 [degF] Dr. Drake Whiting Work Phone: 3(967)236-579630 [place] [address] 04-12-2023 07:18-0500 Diastolic blood pressure 52 mm[Hg] Dr. Drake Whiting Work Phone: 3(793)559-725130 [place] [address] 04-12-2023 07:18-0500 Heart rate 63 /min Dr. Drake Whiting Work Phone: 5(851)034-454830 [place] [address] 04-12-2023 07:18-0500 Respiratory rate 18 /min Dr. Drake Whiting Work Phone: 5(391)528-146430 [place] [address] 04-12-2023 07:18-0500 SaO2% (BldA) [Mass fraction] 98 % Dr. Drake Whiting Work Phone: 0(018)015-431530 [place] [address] 04-12-2023 07:18-0500 Systolic blood pressure 93 mm[Hg] Dr. Drake Whiting Work Phone: 1(138)839-607630 [place] [address] 04-12-2023 05:58-0500 Body height 157.[address] Drake Whiting Work Phone: 0(311)786-153395 [place] [address] 04-12-2023 05:58-0500 Body mass index (BMI) [Ratio] 33.8 kg/m2 Dr. Drake Whiting Work Phone: 4(921)011-114430 [place] [address] 04-12-2023 05:58-0500 Body weight [address] Drake Whiting Work Phone: 1(282)878-125030 [place] [address] 04-07-2023 10:34-0500 Body temperature 99 [degF] Dr. Drake Whiting Work Phone: 5(821)367-586030 [place] [address] 04-07-2023 10:34-0500 Diastolic blood pressure 66 mm[Hg] Dr. Drake Whiting Work Phone: 9(422)343-518930 [place] [address] 04-07-2023 10:34-0500 Heart rate 74 /min Dr. Drake Whiting Work Phone: 8(327)068-579530 [place] [address] 04-07-2023 10:34-0500 Respiratory rate 16 /min Dr. Drake Whiting Work Phone: 9(119)458-395530 [place] [address] 04-07-2023 10:34-0500 SaO2% (BldA) [Mass fraction] 100 % Dr. Drake Whiting Work Phone: 5(999)224-750630 [place] [address] 04-07-2023 10:34-0500 Systolic blood pressure 98 mm[Hg] Dr. Drake Whiting Work Phone: 5(182)741-744730 [place] [address] 04-07-2023 09:07-0500 Body mass index (BMI) [Ratio] 34.3 kg/m2 Dr. Drake Whiting Work Phone: 4(564)753-502595 [place] [address] 04-07-2023 09:07-0500 Body weight 85.[address] Drake Whiting Work Phone: 6(002)108-658330 [place] [address] 12-28-2022 13:08-0400 Body temperature 97.3 [degF] Treatment Wstr Work Phone: [facility] 12-28-2022 13:08-0400 Diastolic blood pressure 73 mm[Hg] Treatment Wstr Work Phone: [facility] 12-28-2022 13:08-0400 Heart rate 68 /min Treatment Wstr Work Phone: [facility] 12-28-2022 13:08-0400 Systolic blood pressure 109 mm[Hg] Treatment Wstr Work Phone: [facility] 12-23-2022 13:31-0400 Body height 157.5 cm Magdalena Nuñez WARP PICKER.RECORDING ARTIST Work Phone: [facility] 12-23-2022 13:31-0400 Body weight 86.67 kg Magdalena Nuñez WARP PICKER.RECORDING ARTIST Work Phone: [facility] 12-23-2022 13:31-0400 Diastolic blood pressure 62 mm[Hg] Magdalena Nuñez WARP PICKER.RECORDING ARTIST Work Phone: [facility] 12-23-2022 13:31-0400 Heart rate 68 /min Magdalena Nuñez WARP PICKER.RECORDING ARTIST Work Phone: [facility] 12-23-2022 13:31-0400 Respiratory rate 16 /min Magdalena Nuñez WARP PICKER.RECORDING ARTIST Work Phone: [facility] 12-23-2022 13:31-0400 Systolic blood pressure 100 mm[Hg] Magdalena Nuñez WARP PICKER.RECORDING ARTIST Work Phone: [facility] 11-02-2022 13:11-0400 Body temperature 98.4 [degF] Treatment Wstr Work Phone: [facility] 11-02-2022 13:11-0400 Diastolic blood pressure 64 mm[Hg] Treatment Wstr Work Phone: [facility] 11-02-2022 13:11-0400 Heart rate 89 /min Treatment Wstr Work Phone: [facility] 11-02-2022 13:11-0400 Respiratory rate 16 /min Treatment Wstr Work Phone: [facility] 11-02-2022 13:11-0400 SaO2% (BldA) [Mass fraction] 97 % Treatment Wstr Work Phone: [facility] 11-02-2022 13:11-0400 Systolic blood pressure 93 mm[Hg] Treatment Wstr Work Phone: [facility] 07-15-2022 08:24-0500 Body temperature 97.81 [degF] Treatment Wstr Work Phone: [facility] 07-15-2022 08:24-0500 Body weight 90.72 kg Treatment Wstr Work Phone: [facility] 07-15-2022 08:24-0500 Diastolic blood pressure 64 mm[Hg] Treatment Wstr Work Phone: [facility] 07-15-2022 08:24-0500 Heart rate 83 /min Treatment Wstr Work Phone: [facility] 07-15-2022 08:24-0500 Systolic blood pressure 113 mm[Hg] Treatment Wstr Work Phone: [facility] 02-17-2022 15:05-0400 Body weight 89.36 kg Annia Zhang MD Work Phone: [facility] 02-17-2022 15:05-0400 Diastolic blood pressure 70 mm[Hg] Annia Zhang MD Work Phone: [facility] 02-17-2022 15:05-0400 Systolic blood pressure 120 mm[Hg] Annia Zhang MD Work Phone: [facility] 02-09-2022 10:29-0400 Body temperature 98.01 [degF] Treatment Wstr Work Phone: [facility] 02-09-2022 10:29-0400 Diastolic blood pressure 69 mm[Hg] Treatment Wstr Work Phone: [facility] 02-09-2022 10:29-0400 Heart rate 89 /min Treatment Wstr Work Phone: [facility] 02-09-2022 10:29-0400 Systolic blood pressure 118 mm[Hg] Treatment Wstr Work Phone: [facility] 01-26-2022 11:46-0400 Body temperature 97.7 [degF] Treatment Wstr Work Phone: [facility] 01-26-2022 11:46-0400 Body weight 88 kg Treatment Wstr Work Phone: [facility] 01-26-2022 11:46-0400 Diastolic blood pressure 71 mm[Hg] Treatment Wstr Work Phone: [facility] 01-26-2022 11:46-0400 Heart rate 100 /min Treatment Wstr Work Phone: [facility] 01-26-2022 11:46-0400 Respiratory rate 18 /min Treatment Wstr Work Phone: [facility] 01-26-2022 11:46-0400 SaO2% (BldA) [Mass fraction] 99 % Treatment Wstr Work Phone: [facility] 01-26-2022 11:46-0400 Systolic blood pressure 117 mm[Hg] Treatment Wstr Work Phone: [facility] 01-15-2022 14:50-0400 Body temperature 97.4 [degF] [facility] Work Phone: 01-15-2022 14:50-0400 Diastolic blood pressure 61 mm[Hg] [facility] Work Phone: 01-15-2022 14:50-0400 Heart rate 73 /min [facility] Work Phone: 01-15-2022 14:50-0400 Respiratory rate 16 /min [facility] Work Phone: 01-15-2022 14:50-0400 SaO2% (BldA) [Mass fraction] 93 % [facility] Work Phone: 01-15-2022 14:50-0400 Systolic blood pressure 91 mm[Hg] [facility] Work Phone: 01-15-2022 10:01-0400 Body height 157.48 cm [facility] Work Phone: 01-15-2022 10:01-0400 Body mass index (BMI) [Ratio] 35 kg/m2 [facility] Work Phone: 01-15-2022 10:01-0400 Body weight 87 kg [facility] Work Phone: 01-08-2022 14:34-0400 Body weight 88.45 kg Annia Zhang MD Work Phone: [facility] 01-08-2022 14:34-0400 Diastolic blood pressure 66 mm[Hg] Annia Zhagn MD Work Phone: [facility] 01-08-2022 14:34-0400 Systolic blood pressure 110 mm[Hg] Annia Zhang MD Work Phone: [facility] 01-08-2022 08:12-0400 Body height 157.5 cm Nida Huynh MD Work Phone: [facility] 01-08-2022 08:12-0400 Body temperature 97.9 [degF] Nida Huynh MD Work Phone: [facility] 01-08-2022 08:12-0400 Body weight 88 kg Nida Hunyh MD Work Phone: [facility] 01-08-2022 08:12-0400 Diastolic blood pressure 64 mm[Hg] Nida Huynh MD Work Phone: [facility] 01-08-2022 08:12-0400 Heart rate 97 /min Nida Huynh MD Work Phone: [facility] 01-08-2022 08:12-0400 SaO2% (BldA) [Mass fraction] 97 % Nida Huynh MD Work Phone: [facility] 01-08-2022 08:12-0400 Systolic blood pressure 100 mm[Hg] Nida Huynh MD Work Phone: [facility] 12-31-2021 14:43-0400 Body weight 88.18 kg Toñito Dayanara W[employer] PICKER.RECORDING ARTIST Work Phone: [facility] 12-31-2021 14:43-0400 Diastolic blood pressure 80 mm[Hg] Toñito Dayanara WARP PICKER.RECORDING ARTIST Work Phone: [facility] 12-31-2021 14:43-0400 Heart rate 89 /min Toñito Dayanara WARP PICKER.RECORDING ARTIST Work Phone: [facility] 12-31-2021 14:43-0400 Respiratory rate 16 /min Toñito Dayanara WARP PICKER.RECORDING ARTIST Work Phone: [facility] 12-31-2021 14:43-0400 SaO2% (BldA) [Mass fraction] 99 % Toñito Dayanara WARP PICKER.RECORDING ARTIST Work Phone: [facility] 12-31-2021 14:43-0400 Systolic blood pressure 116 mm[Hg] Toñito Dayanara WARP PICKER.RECORDING ARTIST Work Phone: [facility] 12-03-2021 15:43-0400 Body height 157.5 cm Tia Kalka PA-C Work Phone: [facility] 12-03-2021 15:43-0400 Body weight 89.95 kg Tia Kalka PA-C Work Phone: [facility] 12-03-2021 15:43-0400 Diastolic blood pressure 82 mm[Hg] Tia Kalka PA-C Work Phone: [facility] 12-03-2021 15:43-0400 Heart rate 87 /min Tia Kalka PA-C Work Phone: [facility] 12-03-2021 15:43-0400 Systolic blood pressure 114 mm[Hg] Tia Kalka PA-C Work Phone: [facility] 11-24-2021 09:29-0400 Body temperature 98.49 [degF] Jess Noel W[employer] P[employer]ER.RECORDING ARTIST Work Phone: [facility] 11-24-2021 09:29-0400 Body weight 87.09 kg Jess Noel WARP PICKER.RECORDING ARTIST Work Phone: [facility] 11-24-2021 09:29-0400 Diastolic blood pressure 68 mm[Hg] Jess Noel WARP PICKER.RECORDING ARTIST Work Phone: [facility] 11-24-2021 09:29-0400 Heart rate 94 /min Jess Noel WARP PICKER.RECORDING ARTIST Work Phone: [facility] 11-24-2021 09:29-0400 Respiratory rate 16 /min Jess Noel WARP PICKER.RECORDING ARTIST Work Phone: [facility] 11-24-2021 09:29-0400 SaO2% (BldA) [Mass fraction] 98 % Jess Noel WARP PICKER.RECORDING ARTIST Work Phone: [facility] 11-24-2021 09:29-0400 Systolic blood pressure 108 mm[Hg] Jess Noel WARP PICKER.RECORDING ARTIST Work Phone: [facility] 11-19-2021 15:17-0400 Body weight 89.36 kg Annia Zhang MD Work Phone: [facility] 11-19-2021 15:17-0400 Diastolic blood pressure 68 mm[Hg] Annia Zhang MD Work Phone: [facility] 11-19-2021 15:17-0400 Systolic blood pressure 110 mm[Hg] Annia Zhang MD Work Phone: [facility] 11-05-2021 15:18-0400 Body weight 88 kg Nurse Wstr Work Phone: [facility] 11-05-2021 15:18-0400 Diastolic blood pressure 70 mm[Hg] Nurse Wstr Work Phone: [facility] 11-05-2021 15:18-0400 Systolic blood pressure 114 mm[Hg] Nurse Wstr Work Phone: [facility] 10-02-2021 11:25-0400 Body temperature 97.9 [degF] Alicia Reynolds W[employer] P[employer]ER.RECORDING ARTIST Work Phone: [facility] 10-02-2021 11:25-0400 Body weight 87.27 kg Alicia Reynolds WARP PICKER.RECORDING ARTIST Work Phone: [facility] 10-02-2021 11:25-0400 Diastolic blood pressure 80 mm[Hg] Alicia Reynolds WARP PICKER.RECORDING ARTIST Work Phone: [facility] 10-02-2021 11:25-0400 Heart rate 88 /min Alicia Reynolds WARP PICKER.RECORDING ARTIST Work Phone: [facility] 10-02-2021 11:25-0400 Respiratory rate 18 /min Alicia Reynolds WARP PICKER.RECORDING ARTIST Work Phone: [facility] [facility] 10-02-2021 11:25-0400 SaO2% (BldA) [Mass fraction] 97 % Alicia Reynolds WARP PICKER.RECORDING ARTIST Work Phone: [facility] 10-02-2021 11:25-0400 Systolic blood pressure 122 mm[Hg] Alicia Reynolds WARP PICKER.RECORDING ARTIST Work Phone: [facility] 09-17-2021 11:09-0400 Body height 157.5 cm Eddy Valencia MD Work Phone: [facility] 09-17-2021 11:09-0400 Body weight 86.18 kg Eddy Valencia MD Work Phone: [facility] 09-17-2021 11:09-0400 Diastolic blood pressure 79 mm[Hg] Eddy Valencia MD Work Phone: [facility] 09-17-2021 11:09-0400 Heart rate 84 /min Eddy Valencia MD Work Phone: [facility] 09-17-2021 11:09-0400 Systolic blood pressure 101 mm[Hg] Eddy Valencia MD Work Phone: [facility] 08-16-2021 12:06-0400 Body temperature 98.4 [degF] Jesús Pendlebury WARP PICKER.RECORDING ARTIST Work Phone: [facility] 08-16-2021 12:06-0400 Body weight 87.45 kg Jesús Watkins WARP PICKER.RECORDING ARTIST Work Phone: [facility] 08-16-2021 12:06-0400 Diastolic blood pressure 80 mm[Hg] Jesús Watkins WARP PICKER.RECORDING ARTIST Work Phone: [facility] 08-16-2021 12:06-0400 Heart rate 95 /min Jesús Watkins WARP PICKER.RECORDING ARTIST Work Phone: [facility] 08-16-2021 12:06-0400 Respiratory rate 14 /min Jesús Watkins WARP PICKER.RECORDING ARTIST Work Phone: [facility] 08-16-2021 12:06-0400 SaO2% (BldA) [Mass fraction] 99 % Jesús Watkins WARP PICKER.RECORDING ARTIST Work Phone: [facility] 08-16-2021 12:06-0400 Systolic blood pressure 118 mm[Hg] [facility] PICKER.RECORDING ARTIST Work Phone: [facility] Encounters Encounter Date Encounter Type Care Provider Facility Start: 03-22-2025 ambulatory Drake Lopez :[facility] Start: 02-27-2025 End: 02-27-2025 Patient encounter procedure Rey Alcaraz DO -Medical Out Work Phone: Start: 02-27-2025 End: 02-27-[address] Drake Whiting DO Work Phone: -Medical Out Start: 02-23-2025 End: 02-23-2025 Patient encounter procedure Rey Alcaraz DO -[facility] Work Phone: Start: 02-23-2025 End: 02-23-[address] Drake Whiting DO Work Phone: -[facility] Start: 02-15-2025 End: 02-15-2025 ambulatory ANNIA ZHANG Facility:[facility] Start: 02-15-2025 Encounter for gynecological examination (general) (routine) without abnormal findings ANNIA ZHANG [facility] Start: 01-15-2025 End: 01-15-2025 Follow-up encounter Danna Ramirez APRN.RECORDING ARTIST Work Phone: [facility] Start: 01-05-2025 End: 01-05-2025 Office outpatient visit 25 minutes Danna Ramirez APRN.RECORDING ARTIST Work Phone: [facility] Comment on above: Other microscopic he maturia (Primary Dx); Urine leukocytes; Crohn's disease with complication, unspecified gastrointestinal tract location (HCC); Other iron deficiency anemia; Vitamin D deficiency; Obesity, Class I, BMI 30-34.9 Start: 01-05-2025 End: 01-05-2025 ambulatory DANNA RAMIREZ Facility:[facility] Start: 01-02-2025 End: 01-02-2025 Patient encounter procedure Rey Alcaraz DO -Medical Out Work Phone: Comment on above: Urinary frequency (P rimary Dx); Urinary tract infection with hematuria, site unspecified Start: 01-02-2025 End: 01-02-[address] Drake Whiting DO Work Phone: -Medical Out Start: 12-21-2024 End: 12-21-[address] Drake Whiting DO Work Phone: -Laboratory Start: 12-21-2024 End: 12-21-2024 Patient encounter procedure Rey Alcaraz DO -Laboratory Work Phone: Start: 12-21-2024 End: 12-21-2024 ambulatory Rey Alcaraz Facility:[facility] Start: 12-06-2024 ambulatory Rey Alcaraz Facility :[place] Start: 11-21-2024 End: 11-21-2024 Subsequent hospital visit by physician Xr [facility] Work Phone: Radiology Comment on above: Acute pain of left k nee [M25.562] Start: 11-21-2024 End: 11-21-2024 Office outpatient visit 25 minutes Ravinder Miranda MD Work Phone: [facility] Comment on above: Acute pain of left k nee (Primary Dx) Start: 11-21-2024 End: 11-21-2024 ambulatory DRAKE WHITING Facility:[facility] Start: 11-09-2024 End: 11-09-2024 Patient encounter procedure Rey Lissa DO -Medical Out Work Phone: Start: 11-09-2024 End: 11-09-[address] Drake Whiting DO Work Phone: -Medical Out Start: 10-12-2024 End: 10-12-2024 Patient encounter procedure Rey Lissa DO -Medical Out Work Phone: Start: 10-12-2024 End: 10-12-[address] Drake Whiting DO Work Phone: [facility] Work Phone: Start: 09-28-2024 End: 09-28-2024 Patient encounter procedure Rey Alcaraz DO -Medical Out Work Phone: Start: 09-28-2024 End: 09-28-2024 ambulatory Rey Alcaraz Facility:[facility] Start: 09-14-2024 End: 09-14-[address] Drake Whiting DO Work Phone: [facility] Work Phone: Start: 09-14-2024 End: 09-14-2024 Patient encounter procedure Rey Alcaraz DO -Cat Scan, [facility] Work Phone: Start: 09-14-2024 End: 09-14-2024 ambulatory Rey Alcaraz Facility:[facility] Start: 09-06-2024 End: 09-06-2024 Patient encounter procedure Cristy Miranda [facility] Work Phone: Start: 09-06-2024 End: 09-06-2024 ambulatory Drake Whiting Facility:[facility] Start: 09-05-2024 ambulatory Drake Whiting Facilit y:[facility] Start: 09-04-2024 End: 09-04-2024 Patient encounter procedure Rey Alcaraz DO -[facility] Work Phone: Start: 09-04-2024 End: 09-04-2024 ambulatory Drake Corleyrison Facility:[facility] Start: 08-23-2024 End: 08-23-2024 Patient encounter procedure Rey Alcaraz DO -Laboratory Work Phone: Start: 08-23-2024 End: 08-23-2024 ambulatory Rey Alcaraz Facility:[facility] Start: 07-13-2024 End: 09-12-2024 Follow-up encounter Magdalena Nuñez WARP PICKER.RECORDING ARTIST Work Phone: [facility] Start: 07-10-2024 End: 07-10-2024 Patient encounter procedure Cristy Ruth -[facility] Work Phone: Start: 07-10-2024 End: 07-10-2024 ambulatory [facility] Facility:[facility] Start: 07-10-2024 Encounter for genera l adult medical examination without abnormal findings [facility] Start: 06-29-2024 ambulatory Drake Corleyrison Facilit y:[facility] Start: 06-02-2024 End: 06-02-2024 Refill Drake Whiting DO Work Phone: [facility] Comment on above: Medication Problem Start: 06-01-2024 End: 06-01-2024 ambulatory [facility] Facility:[facility] Start: 06-01-2024 End: 06-01-2024 Office outpatient visit 25 minutes Toñito Pimentelman WARP PICKER.RECORDING ARTIST Work Phone: [facility] Comment on above: Wellness examination (Primary Dx); Screening for depression; Encounter for screening examination for other mental health and behavioral disorders; Iron deficiency anemia, unspecified iron deficiency anemia type; URI, acute; Persistent cough; Screening for diabetes mellitus; Screening for lipid disorders; Screening for thyroid disorder; Encounter for vitamin deficiency screening Start: 06-01-2024 End: 06-01-2024 Patient encounter status [facility] RECORDING ARTIST Work Phone: [facility] Work Phone: Start: 05-30-2024 End: 05-30-2024 Subsequent hospital visit by physician Xr [facility] Work Phone: Radiology Comment on above: Acute cough [R05.1] Start: 05-30-2024 End: 05-30-2024 ambulatory DRAKE Olga WHITING Facility:[facility] Start: 05-30-2024 End: 05-30-2024 Patient encounter procedure Deyvi Willoughby APRN.RECORDING ARTIST Work Phone: [facility] Comment on above: URI, acute (Primary Dx); Sore throat; Acute cough Start: 05-04-2024 End: 05-04-2024 ambulatory Drake Whiting Facility:[place] Start: [facility]-02-[facility] Start: 04-03-2024 End: 04-03-2024 ambulatory Drake Whiting Facility:[facility] Start: 03-28-2024 End: 03-28-2024 Emergency department patient visit Drake Whiting Facility:[facility] Start: 02-15-2024 End: 02-15-2024 Patient encounter procedure Deyvi Willoughby APRN.RECORDING ARTIST Work Phone: [facility] Comment on above: Sore throat (Primary Dx); Left ear pain Start: 02-11-2024 End: 02-11-2024 Telephone encounter Angeles Cruz APRN.RECORDING ARTIST Work Phone: OB/Gynecology Comment on above: Results Start: 02-10-2024 End: 02-10-2024 Patient encounter procedure Angeles Cruz APRN.RECORDING ARTIST Work Phone: OB/Gynecology Comment on above: Encounter for gyneco logical examination (general) (routine) without abnormal findings (Primary Dx); History of gestational diabetes; Vaginal discharge Start: 02-10-2024 End: 02-10-2024 Patient encounter status Angeles Cruz APRN.RECORDING ARTIST Work Phone: [facility] Start: 09-25-2023 End: 09-25-2023 Patient encounter procedure Maria Guadalupe KEY Work Phone: [facility] Comment on above: Sore throat (Primary Dx); URI, acute Start: 09-06-2023 Orders Only Kaylie Faulkner on PA-C Work Phone: [facility] [place] Start: 06-01-2023 End: 06-01-[address] Drake Whiting Work Phone: [facility] Work Phone: Start: 06-01-2023 End: 06-01-[address] Drake Whiting Work Phone: [facility]-Medical Out Work Phone: Start: 04-16-2023 End: 04-16-2023 Emergency department patient visit Dr. Drake Whiting Work Phone: [facility]-Emergency Department Work Phone: Start: 04-12-2023 Non-patient / Non-visit Dr. Tricia Whiting Work Phone: [facility] Start: 04-12-2023 End: 04-12-2023 Admission to same day surgery center Dr. Drake Whiting Work Phone: [facility]-Endoscopy Work Phone: Start: 04-12-2023 End: 04-12-[address] Drake Whiting Work Phone: [facility] Work Phone: Start: 04-07-2023 Non-patient / Non-visit Dr. Tricia Whiting Work Phone: [facility] Start: 04-07-2023 End: 04-07-2023 Admission to same day surgery center Dr. Drake Whiting Work Phone: [facility]-Endoscopy Work Phone: Start: 03-19-2023 End: 03-19-[address] Drake Whiting Work Phone: [facility] Gastroenterology Work Phone: Start: 03-15-2023 Telephone encounter [facility] lopez PA-C [facility] Comment on above: Remicade Infusion Start: 02-22-2023 End: 02-22-[address] Drake Wihting Work Phone: [facility] Work Phone: Start: 02-22-2023 End: 02-22-[address] Drake Whiting Work Phone: [facility] Gastroenterology Work Phone: Start: 12-30-2022 Telephone encounter Magdalena mars APRN.RECORDING ARTIST Work Phone: [facility] Comment on above: Results Start: 12-28-2022 End: 12-28-2022 ambulatory Treatment Rm 5 Estevan [facility] Work Phone: Hematology/Oncology Comment on above: Crohn's disease of i leum with other complication (HCC) (Primary Dx) Start: 12-23-2022 End: 12-23-2022 Patient encounter procedure Magdalena Nuñez APRN.RECORDING ARTIST Work Phone: [facility] Comment on above: Wellness examination (Primary Dx); Encounter for immunization; Vitamin D deficiency; Crohn's disease without complication, unspecified gastrointestinal tract location (HCC); Iron deficiency anemia, unspecified iron deficiency anemia type; Screening for lipid disorders Start: 12-23-2022 End: 12-23-2022 Patient encounter status Magdalena Nuñez APRN.RECORDING ARTIST Work Phone: [facility] Work Phone: Start: 11-02-2022 Telephone encounter Tia lopez PA-C Work Phone: [facility] Comment on above: Results Start: 11-02-2022 End: 11-02-2022 ambulatory Treatment Rm 5 Estevan [facility] Work Phone: Hematology/Oncology Comment on above: Crohn's disease of i ira with other complication (HCC) (Primary Dx) Start: 10-29-2022 Telephone encounter Tia Mckenna john PA-C Work Phone: [facility] Comment on above: Insurance Authorizat ion Start: 10-26-2022 End: 10-26-2022 ambulatory Tia Farnaz PA-C Work Phone: [facility] Comment on above: Crohn's disease of i ira with other complication (HCC) (Primary Dx); Encounter for screening for viral disease Start: 10-26-2022 End: 10-26-2022 Telemedicine consultation with patient Tia Farnaz PA-C Work Phone: [facility] Start: 09-23-2022 Telephone encounter Drake strickland DO Work Phone: [facility] Comment on above: requetsing referral Start: 07-15-2022 End: 07-15-2022 ambulatory Treatment Rm 8 [facility] Work Phone: Hematology/Oncology Comment on above: Crohn's disease of i ira with other complication (HCC) (Primary Dx) Start: 06-17-2022 Telephone encounter Cierra Mcmillan MD Work Phone: OB/Gynecology Comment on above: Patient Question Start: 04-28-2022 Telephone encounter Chong ivy DO Work Phone: Hematology/Oncology Comment on above: Appointment Start: 03-23-2022 ambulatory Tia Farnaz PA-C Work Phone: [facility] Comment on above: Blood work Start: 02-17-2022 End: 02-17-2022 Patient encounter elizabeth Zhang MD Work Phone: OB/Gynecology Comment on above: Post-operative state (Primary Dx); Need for influenza vaccination Start: 02-09-2022 End: 02-09-2022 ambulatory Treatment Rm 7 Estevan [facility] Work Phone: Hematology/Oncology Comment on above: Crohn's disease of i leum with other complication (HCC) (Primary Dx) Start: 02-06-2022 Telephone encounter Chong ivy DO Work Phone: Hematology/Oncology Comment on above: Appointment Start: 01-28-2022 ambulatory Tia Farnaz PA-C Work Phone: [facility] [place] Comment on above: Hello Start: 01-26-2022 End: 01-26-2022 Orders Only Tia Farnaz PA-C [facility] Comment on above: Crohn's disease of i leum with other complication (HCC) (Primary Dx) Start: 01-23-2022 Telephone encounter Chong ivy DO Work Phone: Hematology/Oncology Comment on above: Appointment Start: 01-22-2022 Telephone encounter Financial Navigator [place] Work Phone: Financial Services Comment on above: Benefits Investigati on Start: 01-19-2022 Telephone encounter Tia lopez PA-C Work Phone: [facility] Comment on above: Future Appointment Start: 01-15-2022 End: 01-15-2022 Admission to same day surgery center [facility] Start: 01-15-2022 End: 01-15-2022 ambulatory [facility] Work Phone: Start: 01-08-2022 End: 01-08-2022 Patient encounter procedure Annia Zhang MD Work Phone: OB/Gynecology Comment on above: Sterilization consul t (Primary Dx); Umbilical hernia without obstruction or gangrene; Post-op pain Start: 01-08-2022 Telephone encounter Drake strickland DO Work Phone: [facility] Comment on above: Patient Update Start: 01-08-2022 End: 01-08-2022 Patient encounter procedure Nida Huynh MD Work Phone: General Surgery Comment on above: Periumbilical hernia Start: 01-06-2022 ambulatory Toñito batres WARP PICKER.RECORDING ARTIST Work Phone: [facility] Comment on above: Paperwork Start: 01-05-2022 Telephone encounter Toñito Clarke WARP PICKER.RECORDING ARTIST Work Phone: [facility] Comment on above: Patient Update Start: 01-01-2022 Telephone encounter Drake strickland Work Phone: [facility] Comment on above: Insurance Authorizat ion ([facility]) Start: 12-31-2021 End: 12-31-2021 Patient encounter procedure Toñito Johnson WARP PICKER.RECORDING ARTIST Work Phone: [facility] Comment on above: Generalized abdomina l pain (Primary Dx); Periumbilical hernia Start: 12-09-2021 Telephone encounter Tia lopez PA-C [facility] Phone[facility] Comment on above: Orders Start: 12-03-2021 End: 12-03-2021 Patient encounter procedure Tia Osei PA-C [facility] Phone[facility] Comment on above: Crohn's disease of i leum with other complication (HCC) (Primary Dx); Encounter for screening for viral disease Start: 11-24-2021 End: 11-24-2021 Patient encounter procedure Jess Noel WARP PICKER.RECORDING ARTIST Work Phone: [facility] Comment on above: Sore throat (Primary Dx); Exposure to COVID-19 virus Start: 11-19-2021 End: 11-19-2021 Patient encounter procedure Annia Zhang MD Work Phone: OB/Gynecology Comment on above: Sterilization consul t (Primary Dx) Start: 11-05-2021 End: 11-05-2021 Nursing evaluation of patient and report Nurse Municipal Services Manager [facility] Work Phone: OB/Gynecology Comment on above: Encounter for Depo-P rovera contraception (Primary Dx); Encounter for management and injection of depo-Provera Start: 10-02-2021 End: 10-02-2021 Patient encounter procedure Alicia Reynolds WARP PICKER.RECORDING ARTIST Work Phone: [facility] Comment on above: Pharyngitis, unspeci fied etiology (Primary Dx); URI, acute Start: 09-17-2021 End: 09-17-2021 Patient encounter procedure Eddy Valencia MD Work Phone: [facility] Comment on above: Crohn's disease of s mall intestine without complication (HCC) (Primary Dx); Umbilical hernia without obstruction or gangrene Start: 08-18-2021 Telephone encounter Vane Malave APRN.RECORDING ARTIST Work Phone: [facility] [place] Comment on above: Results Start: 08-16-2021 End: 08-16-2021 Patient encounter procedure Jesús Pappascarlos WARP PICKER.RECORDING ARTIST Work Phone: [facility] Comment on above: Right lower quadrant abdominal pain (Primary Dx) Start: 08-15-2021 End: 08-15-2021 Subsequent hospital visit by physician [facility] Radiology Comment on above: Inflammatory bowel d isease [K52.9] Start: 08-08-2021 Telephone encounter Drake strickland DO Work Phone: [facility] Comment on above: FMLA Paperwork; Retu rn To Work Letter Start: 07-30-2021 ambulatory Vane Malave APR N.RECORDING ARTIST Work Phone: Gastroenterology Comment on above: Questions Start: 07-29-2021 Telephone encounter Vnae Malave APRN.RECORDING ARTIST Work Phone: Gastroenterology Comment on above: Results Start: 09-14-2019 Patient requested procedure Vane Malave WARP PICKER.RECORDING ARTIST Work Phone: [facility] Work Phone: Start: 05-06-2018 End: 05-06-2018 Patient encounter procedure JERI RAMESH Facility:B Start: 04-27-2018 Patient encounter procedure JERI RAMESH Facility:[facility] Start: 03-04-2018 End: 03-04-2018 Patient encounter procedure JERI RAMESH Facility:[facility] Start: 01-13-2008 End: 04-10-2011 Patient encounter status Kaylie Mayur HORN Work Phone: [facility] Work Phone: Procedures Date Procedure Procedure Detail Performing Clinician Start: 01-05-2025 Urnls dip stick/tablet rgnt auto w/o microscopy [facility] Provider Start: 01-02-2025 Urnls dip stick/tablet rgnt auto w/o microscopy Lexie Byers APRN.CNP Work Phone: Start: 12-21-[address] Drake Whiting DO Work Phone: Comment on above: Test Ordered: [id number] Vedolizumab Drug + AntibodyVedolizumab 17 ug/mL ES Reference Range: .Quantitation Limit: <1.3 ug/mLResults of 1.3 or higher indicate detection of vedolizumab.COMMENTS: - The optimal drug concentration depends upon patient- specific factors including the disease and desired therapeutic endpoint. - The following vedolizumab trough concentration targets have been proposed: > 30.0 ug/mL at week 2 (1) > 24.0 ug/mL at week 6 (1) > 14 ug/mL during maintenance (1) - Mucosal healing in UC was more common in patients with higher week 6 trough levels (>30).(2) - Highest quartile week 6 levels (>35.8) and lowest quartile (<17.2) corresponded to week 52 remission rates of 37% and 15%, respectively.(3) - Patients with Crohn's Disease and Ulcerative Colitis had similar vedolizumab pharmacokinetic data.(4) - This assay measures the antibody-unbound (free) fraction of vedolizumab when serum anti-vedolizumab antibodies are present.Anti-Vedolizumab Antibody <25 ng/mL ES Reference Range: .Quantitation Limit: < 25 ng/mL.Results of 25 or higher indicate detection of anti-vedolizumab antibodies.COMMENTS: - Anti-vedolizumab antibodies developed in about 13% of IBD patients.(5) - Patients with persistently positive anti-vedolizumab antibodies had undetectable or reduced vedolizumab levels.(5) - Anti-drug antibody positivity should be interpreted in the context of the concomitant free drug level. - Serial measurements over time may be helpful. - This anti-vedolizumab antibody assay is drug tolerant, and all positive results are verified for anti-drug antibody specificity by a confirmatory test.References:1. Drew Esquivel, et al. Clin Gastroenterol Hepatol 2018;16: 1937-46.2. Rocio M, et al. Inflamm Bowel Dis 2014;20:S1-S3.3. Amanda PORRAS, et al. Aliment Pharmacol Ther 2019;49: 408-418.4. Franc JAVIER, et al. BioDrugs 2015;29:57-67.5. Contracts and Grants [employer]: [place] prescribing information. Accessed 30 Mar 2016.These tests were developed and their performancecharacteristics determined by [employer]. They have not beencleared or approved by the Food and Drug Administration.However, these electrochemiluminescence immunoassay (ECLIA)measurements of vedolizumab and anti-vedolizumab antibody(constituting DoseASSURE VDZ) have been developed andvalidated in accordance with FDA Guidance document, AssayDevelopment and Validation for Immunogenicity Testing ofTherapeutic Protein Products (2019).Performed at: - [facility] [employer] [id number] [place], [place] [id number] Director: Shraddha Davis MD, Phone: [phone] at: [address] [id number] Director: Jamin Mcguire PhD, Phone: [phone] Start: 11-21-2024 Radiologic examination knee 1/2 views Ravinder Miranda MD Work Phone: Start: 09-14-2024 Computed tomography of abdomen and pelvis with contrast Dr. Drake Whiting DO Work Phone: Start: 08-23-[address] Drake Whiting DO Work Phone: Comment on above: Test Ordered: [id number] Ustekinumab Drug + AntibodyUstekinumab 1.8 ug/mL ES Reference Range: .Quantitation Limit: <0.1 ug/mLResults of 0.1 ug/mL or higher indicate detection ofustekinumab.COMMENTS: - Induction levels in Crohn's Disease: - Patients who received IV 130 mg or 6 mg/kg had median trough concentrations of 2.1 ug/mL and 6.4 ug/mL, respectively, at week 8 in UNITI trials.(1)- Maintenance levels: - Of UNITI patients with trough levels greater than 1.1 ug/mL, about 80% achieved clinical remission (HBI < 5) and about 50% attained CRP normalization.(2) - Higher maintenance concentrations, greater than 4.5 ug/mL (achieved with q8wk or q4wk dosing after SQ induction), may be necessary for endoscopic response (SES-CD score reduction >=50%).(3) - Trough levels predictive of mucosal healing and fistula healing have yet to be determined.- In plaque psoriasis, median trough ustekinumab concentrations were 0.4 ug/mL at weeks 14 and 28 (ranging from undetectable to 3.6 ug/mL).(4) Although PASI50 responders had higher trough concentrations than non- responders in a study of 76 patients, a definitive therapeutic target range for psoriasis has yet to be established.(5)- As with other biologics, the optimal drug concentration depends upon patient-specific factors including co- morbidities, disease and desired therapeutic endpoint- This ustekinumab drug assay measures the free fraction of ustekinumab (antibody-unbound ustekinumab) when serum anti-ustekinumab antibodies are present.Anti-Ustekinumab Antibody <40 ng/mL ES Reference Range: .Quantitation Limit: < 40 ng/mLResults of 40 ng/mL or higher indicate detection of anti-ustekinumab antibodies.COMMENTS:- This anti-ustekinumab antibody assay is drug-tolerant, i.e. the detection of anti-ustekinumab antibodies is not impeded by the presence of ustekinumab in serum.- All positive anti-ustekinumab antibody results are verified by a confirmatory test.- The concomitant free ustekinumab drug concentration (reported above) is the pharmacodynamically active drug when anti-ustekinumab antibodies are present.- Serial measurements over time may be helpful to assess the impact of immunogenicity on the free drug level.- In the IM-UNITI trial, the incidence of anti-ustekinumab antibodies in Crohn's Disease at 1 year was 2.3%.(1)- In psoriasis, anti-ustekinumab antibodies occurred in 4-6% of patients.(6)References:1. Sandra ALDRIDGE et al. Gastroenterology 2016;150(4):S408.2. Sandra Rocha et al. P007 Exposure-Response to SC Ustekinumab in Moderate - Severe Crohn's Disease: Results from the IM-UNITI Maintenance Study. Advances in AIBD. February 2017.3. Mesfin R, et al. Clin Gastroenterol Hepatol 2017;15: 6961-1126.4. Douglas SP, et al. Br J Dermatol;2015:173;855-857.5. Dimitris H, et al. PLOS ONE DOI;10:1371/journal.pone.9131649.6. Aixa L et al. Br J Dermatol 2014;170:261-273.These tests were developed and their performancecharacteristics determined by [facility]. They have not beencleared or approved by the Food and Drug Administration.However, both drug and anti-drug antibody assays have beendeveloped and validated in accordance with FDA Guidance forIndustry documents: Bioanalytical Method Validation (2013)and Assay Development and Validation for ImmunogenicityTesting of Therapeutic Protein Products (2016).Performed at: - [facility] [id number] Director: Liam Weinberg MD, Phone: [phone] at: [facility] [id number] Director: Jamin Mcguire PhD, Phone: [phone].Previous reported result: COMMENT Edited by: RUBÉN on 09/01/24:0759 AMENDED REPORT 09/01/24 0759 [facility] Misc.4 previously reported as: COMMENT Test Ordered: [id number] Ustekinumab Drug + AntibodyUstekinumab 1.8 ug/mL ES Reference Range: .Quantitation Limit: <0.1 ug/mLResults of 0.1 ug/mL or higher indicate detection ofustekinumab.COMMENTS: - Induction levels in Crohn's Disease: - Patients who received IV 130 mg or 6 mg/kg had median trough concentrations of 2.1 ug/mL and 6.4 ug/mL, respectively, at week 8 in UNITI trials.(1)- Maintenance levels: - Of UNITI patients with trough levels greater than 1.1 ug/mL, about 80% achieved clinical remission (HBI < 5) and about 50% attained CRP normalization.(2) - Higher maintenance concentrations, greater than 4.5 ug/mL (achieved with q8wk or q4wk dosing after SQ induction), may be necessary for endoscopic response (SES-CD score reduction >=50%).(3) - Trough levels predictive of mucosal healing and fistula healing have yet to be determined.- In plaque psoriasis, median trough ustekinumab concentrations were 0.4 ug/mL at weeks 14 and 28 (ranging from undetectable to 3.6 ug/mL).(4) Although PASI50 responders had higher trough concentrations than non- responders in a study of 76 patients, a definitive therapeutic target range for psoriasis has yet to be established.(5)- As with other biologics, the optimal drug concentration depends upon patient-specific factors including co- morbidities, disease and (more content not included)... Start: 06-01-2024 Adult depression screening assessment Toñito Johnson [employer] Work Phone: Start: 05-30-2024 STREP A MOLECULAR (POC) Alicia Reynolds [employer] Work Phone: Start: 05-30-2024 Radiologic exam chest 2 views Deyvi luo [employer] Work Phone: Start: 02-15-2024 STREP A MOLECULAR (POC) Deyvi Willoughby [employer] Work Phone: Start: 09-25-2023 STREP A MOLECULAR (POC) Judith Prado PA-C Work Phone: Start: 04-16-2023 Computed tomography of abdomen and pelvis with intravenous contrast Dr. Drake Whiting Work Phone: Start: 04-12-[address] Drake Whiting Work Phone: Start: 02-22-[address] Gurdeep Whiting Work Phone: Start: 02-22-2023 Giardia Antigen (TREY) Dr. Drake Whiting Work Phone: Start: 02-22-[address] Drake Whiting Work Phone: Start: 02-22-[address] Drake Whiting Work Phone: Start: 02-22-2023 Ova [place] parasites identification Dr. Gurdeep Whiting Work Phone: Start: 02-17-2022 INFLUENZA VACCINE QUADRIVALENT 6 MO - 64 YRS IM Annia Zhang MD Work Phone: Start: 01-15-2022 Laparoscopic salpingectomy Start: 11-24-2021 STREP A MOLECULAR (POC) Jess Cohen [employer] Work Phone: Start: 11-05-2021 Urine test visual color cmprsn margies Cierra Mcmillan MD Work Phone: Start: 10-02-2021 STREP A MOLECULAR (POC) Alicia Reynolds [employer] Work Phone: Start: 08-15-2021 Ct abdomen & pelvis w/contrast material Kath Sosa MD Work Phone: Start: 05-06-2020 Adult depression screening assessment Vane Malave APRN.RECORDING ARTIST Work Phone: Start: 09-20-2019 Antibody screen Plan of Treatment Date Care Activity Detail Author Start: 03-16-2027 Urine microalbumin profile [facility] Start: 05-08-2026 HPV TESTING HPV TESTING [facility] Start: 05-08-2026 PAP TESTING PAP TESTING [facility] Start: 05-08-2026 Screening for malign ant neoplasm of cervix [facility] Start: 07-17-2025 Urine microalbumin profile DTAP,TDAP,TD (8 - Td or Tdap) [facility] Start: 06-06-2025 End: 06-06-2025 Patient encounter procedure 06/06/2025 4:40 PM EST Office Visit [facility] [place] [address] [place] [address] Danna Ramirez APRN.RECORDING ARTIST [address] [place] [address] [facility] Comment on above: yearly Start: 06-01-2025 Anxiety Screening Anxiety Screening [facility] Start: 06-01-2025 Covid-19 Vaccine (2 - Tejas risk series) Covid-19 Vaccine (2 - Tejas risk series) [facility] Comment on above: Postponed from 08/14 (Declined at this time) Start: 06-01-2025 Depression Screening Depression Scre ening [facility] Start: 02-27-2025 [facility] Start: 02-27-2025 End: 02-27-2025 Patient encounter procedure Departed Clinical -Medical Out Work Phone: Start: 02-12-2025 End: 02-12-2025 Patient encounter procedure OB/Gynecology Comment on above: Annual Start: 01-09-2025 End: 04-07-2025 Bacteria identified in Urine by Culture BACTERIAL CULTURE, URINE Microbiology Routine Other microscopic hematuria Urine leukocytes Expected: 01/09/2025, Expires: 04/07/2025 [facility] Comment on above: Expected: 01/09/2025 , Expires: 04/07/2025 Start: 01-09-2025 End: 04-07-2025 Urinalysis complete panel - Urine URINALYSIS, WITH MICROSCOPIC Lab Routine Other microscopic hematuria Urine leukocytes Expected: 01/09/2025, Expires: 04/07/2025 [facility] Work Phone: Comment on above: Expected: 01/09/2025 , Expires: 04/07/2025 Start: 01-08-2025 Influenza vaccination [facility] Start: 01-05-2025 End: 04-06-2025 25-hydroxyvitamin D3 [Mass/volume] in Serum or Plasma [facility] Comment on above: Expected: 01/05/2025 , Expires: 04/06/2025 Start: 01-05-2025 End: 04-06-2025 Iron and Iron binding capacity panel - Serum or Plasma [facility] Comment on above: Expected: 01/05/2025 , Expires: 04/06/2025 Start: 11-06-2024 Influenza vaccination Influenza Vacc ine (#1) [facility] Comment on above: Postponed from 01/08 (Declined at this time) Start: 10-12-2024 Iv infusion therapy/prophylaxis /dx 1st to 1 hr THER/PROPH/DIAG IV INF [facility] Start: 09-28-2024 Iv infusion therapy/prophylaxis /dx 1st to 1 hr THER/PROPH/DIAG IV INF [facility] Start: 06-01-2024 End: 08-31-2024 25-hydroxyvitamin D3 [Mass/volume] in Serum or Plasma VITAMIN D 25 HYDROXY Lab Routine Wellness examination Encounter for vitamin deficiency screening Expected: 06/01/2024, Expires: 08/31/2024 [facility] Comment on above: Expected: 06/01/2024 , Expires: 08/31/2024 Start: 06-01-2024 End: 08-31-2024 CBC panel - Blood by Automated count COMPLETE BLOOD COUNT Lab Routine Wellness examination Iron deficiency anemia, unspecified iron deficiency anemia type Expected: 06/01/2024, Expires: 08/31/2024 [facility] Work Phone: Comment on above: Expected: 06/01/2024 , Expires: 08/31/2024 Start: 06-01-2024 End: 08-31-2024 Cobalamin (Vitamin B12) [Mass/volume] in Serum or Plasma VITAMIN B12 Lab Routine Wellness examination Encounter for vitamin deficiency screening Expected: 06/01/2024, Expires: 08/31/2024 [facility] Comment on above: Expected: 06/01/2024 , Expires: 08/31/2024 Start: 06-01-2024 End: 08-31-2024 Comprehensive metabolic 2000 panel - Serum or Plasma COMPREHENSIVE METABOLIC PANEL Lab Routine Wellness examination Screening for diabetes mellitus Expected: 06/01/2024, Expires: 08/31/2024 [facility] Comment on above: Expected: 06/01/2024 , Expires: 08/31/2024 Start: 06-01-2024 End: 08-31-2024 Ferritin [Mass/volume] in Serum or Plasma FERRITIN Lab Routine Wellness examination Iron deficiency anemia, unspecified iron deficiency anemia type Expected: 06/01/2024, Expires: 08/31/2024 [facility] Comment on above: Expected: 06/01/2024 , Expires: 08/31/2024 Start: 06-01-2024 End: 08-31-2024 Hemoglobin A1c in Blood HEMOGLOBIN A1C Lab Routine Wellness examination Screening for diabetes mellitus Expected: 06/01/2024, Expires: 08/31/2024 [facility] Comment on above: Expected: 06/01/2024 , Expires: 08/31/2024 Start: 06-01-2024 End: 08-31-2024 Iron and Iron binding capacity panel - Serum or Plasma IRON AND TIBC Lab Routine Wellness examination Iron deficiency anemia, unspecified iron deficiency anemia type Expected: 06/01/2024, Expires: 08/31/2024 [facility] Comment on above: Expected: 06/01/2024 , Expires: 08/31/2024 Start: 06-01-2024 End: 08-31-2024 Lipid 1996 panel - Serum or Plasma LIPID PANEL BASIC Lab Routine Wellness examination Screening for lipid disorders Expected: 06/01/2024, Expires: 08/31/2024 [facility] Comment on above: Expected: 06/01/2024 , Expires: 08/31/2024 Start: 06-01-2024 End: 08-31-2024 Thyrotropin [Units/volume] in Serum or Plasma THYROID STIMULATING HORMONE Lab Routine Wellness examination Screening for thyroid disorder Expected: 06/01/2024, Expires: 08/31/2024 [facility] Comment on above: Expected: 06/01/2024 , Expires: 08/31/2024 Start: 02-23-2024 End: 02-23-2024 Patient encounter procedure 02/23/2024 1:40 PM EDT Office Visit [facility] [place] [address] [facility] [place] [address] Toñito Johnson APRN.RECORDING ARTIST [address] [facility] [place] [address] physical [facility] Comment on above: physical Start: 02-10-2024 End: 05-11-2024 Hemoglobin A1c in Blood [facility] Work Phone: Comment on above: Expected: 02/10/2024 , Expires: 05/11/2024 Start: 01-09-2024 Influenza vaccination [facility] Start: 12-24-2023 COVID-19 VACCINE (2 - Tejas risk series) COVID-19 VACCINE (2 - Tejas risk series) [facility] Comment on above: Postponed from 08/14 (Declined at this time) Start: 12-24-2023 HEPATITIS A (1 of 2 - Risk 2-dose series) HEPATITIS A (1 of 2 - Risk 2-dose series) [facility] Comment on above: Postponed from 06/05 (Declined at this time) Start: 12-24-2023 Hepatitis A Vaccine (1 of 2 - Risk 2-dose series) Hepatitis A Vaccine (1 of 2 - Risk 2-dose series) [facility] Comment on above: Postponed from 06/05 (Declined at this time) Start: 12-24-2023 HEPATITIS B (3 of 3 - Risk 3-dose series) HEPATITIS B (3 of 3 - Risk 3-dose series) [facility] Comment on above: Postponed from 03/07 (Declined at this time) Start: 12-24-2023 Meningococcal B Vaccine: Consider Based On Risk (1 of 4 - Increased Risk) Meningococcal B Vaccine: Consider Based On Risk (1 of 4 - Increased Risk) [facility] Comment on above: Postponed from 06/05 (Declined at this time) Start: 12-24-2023 MENINGOCOCCAL B: Consider based on risk (1 of 4 - Increased Risk) MENINGOCOCCAL B: Consider based on risk (1 of 4 - Increased Risk) [facility] Comment on above: Postponed from 06/05 (Declined at this time) Start: 12-24-2023 SHINGRIX VACCINE (1 of 2) SHINGRIX VACCINE (1 of 2) [facility] Comment on above: Postponed from 06/05 (Declined at this time) Start: 05-10-2023 Behavioral Health Screening Behavioral Health Screening [facility] Start: 04-16-2023 End: 04-16-2023 [facility] Start: 04-12-2023 Colonoscopy w/biopsy single/multiple COLONOSCOPY AND BIOPSY [facility] Start: 04-12-2023 Patient discharge [facility] Start: 04-07-2023 Colonoscopy w/biopsy single/multiple COLONOSCOPY AND BIOPSY [facility] Start: 04-07-2023 Egd transoral biopsy single/multiple EGD BIOPSY SINGLE/MULTIPLE [facility] Start: 04-07-2023 Patient discharge [facility] Start: 02-22-2023 Elastase, pancreatic (el-1), fecal; quantitative [facility] Start: 02-22-2023 Fat [Presence] in Stool [facility] Start: 02-22-2023 Protein measurement [facility] Start: 02-22-2023 [facility] Start: 02-22-2023 Procedure [facility] Start: 01-08-2023 [facility] Start: 12-31-2022 ANNUAL PCP TEAM MERCHANDISE SUPPORT ASSOCIATE [place] DISEASE VISIT ANNUAL PCP TEAM CHRONIC DISEASE VISIT [facility] Start: 12-23-2022 End: 02-22-2023 25-hydroxyvitamin D3 [Mass/volume] in Serum or Plasma VITAMIN D 25 HYDROXY Lab Routine Vitamin D deficiency Wellness examination Expected: 12/23/2022, Expires: 02/22/2023 [facility] Work Phone: Comment on above: Expected: 12/23/2022 , Expires: 02/22/2023 Start: 12-23-2022 End: 02-22-2023 CBC W Auto Differential panel - Blood CBC + DIFF Lab Routine Iron deficiency anemia, unspecified iron deficiency anemia type Wellness examination Expected: 12/23/2022, Expires: 02/22/2023 [facility] Work Phone: Comment on above: Expected: 12/23/2022 , Expires: 02/22/2023 Start: 12-23-2022 End: 02-22-2023 Ferritin [Mass/volume] in Serum or Plasma FERRITIN BLD Lab Routine Iron deficiency anemia, unspecified iron deficiency anemia type Wellness examination Expected: 12/23/2022, Expires: 02/22/2023 [facility] Work Phone: Comment on above: Expected: 12/23/2022 , Expires: 02/22/2023 Start: 12-23-2022 End: 02-22-2023 Iron and Iron binding capacity panel - Serum or Plasma IRON + TIBC Lab Routine Iron deficiency anemia, unspecified iron deficiency anemia type Wellness examination Expected: 12/23/2022, Expires: 02/22/2023 [facility] Work Phone: Comment on above: Expected: 12/23/2022 , Expires: 02/22/2023 Start: 12-23-2022 End: 02-22-2023 Lipid 1996 panel - Serum or Plasma LIPID PANEL BASIC Lab Routine Screening for lipid disorders Wellness examination Expected: 12/23/2022, Expires: 02/22/2023 [facility] Work Phone: Comment on above: Expected: 12/23/2022 , Expires: 02/22/2023 Start: 10-26-2022 End: 12-26-2022 25-hydroxyvitamin D3 [Mass/volume] in Serum or Plasma VITAMIN D 25 HYDROXY Lab Routine Crohn's disease of ileum with other complication (HCC) Expected: 10/26/2022, Expires: 12/26/2022 [facility] Work Phone: Comment on above: Expected: 10/26/2022 , Expires: 12/26/2022 Start: 10-26-2022 End: 10-27-2023 BLOOD TB SCREEN, INCUBATED BLOOD TB SCREEN, INCUBATED Lab Routine Encounter for screening for viral disease Expected: 10/26/2022, Expires: 10/27/2023 [facility] Work Phone: Comment on above: Expected: 10/26/2022 , Expires: 10/27/2023 Start: 10-26-2022 End: 12-26-2022 C reactive protein [Mass/volume] in Serum or Plasma C-REACTIVE PROTEIN (CRP) Lab Routine Crohn's disease of ileum with other complication (HCC) Expected: 10/26/2022, Expires: 12/26/2022 [facility] Work Phone: Comment on above: Expected: 10/26/2022 , Expires: 12/26/2022 Start: 10-26-2022 End: 12-26-2022 CBC W Auto Differential panel - Blood CBC + DIFF Lab Routine Crohn's disease of ileum with other complication (HCC) Expected: 10/26/2022, Expires: 12/26/2022 [facility] Work Phone: Comment on above: Expected: 10/26/2022 , Expires: 12/26/2022 Start: 10-26-2022 End: 12-26-2022 Cobalamin (Vitamin B12) [Mass/volume] in Serum or Plasma VITAMIN B12 BLOOD Lab Routine Crohn's disease of ileum with other complication (HCC) Expected: 10/26/2022, Expires: 12/26/2022 [facility] Work Phone: Comment on above: Expected: 10/26/2022 , Expires: 12/26/2022 Start: 10-26-2022 End: 12-26-2022 Comprehensive metabolic 2000 panel - Serum or Plasma COMP METABOLIC PANEL Lab Routine Crohn's disease of ileum with other complication (HCC) Expected: 10/26/2022, Expires: 12/26/2022 [facility] Work Phone: Comment on above: Expected: 10/26/2022 , Expires: 12/26/2022 Start: 10-26-2022 End: 12-26-2022 Erythrocyte sedimentation rate SED RATE WESTERGREN Lab Routine Crohn's disease of ileum with other complication (HCC) Expected: 10/26/2022, Expires: 12/26/2022 [facility] Work Phone: Comment on above: Expected: 10/26/2022 , Expires: 12/26/2022 Start: 10-26-2022 End: 12-26-2022 Hepatitis B virus surface Ag [Presence] in Serum HEP B SURF AG SCRN Lab Routine Encounter for screening for viral disease Expected: 10/26/2022, Expires: 12/26/2022 [facility] Work Phone: Comment on above: Expected: 10/26/2022 , Expires: 12/26/2022 Start: 10-26-2022 End: 12-26-2022 Thyrotropin [Units/volume] in Serum or Plasma TSH BLD Lab Routine Crohn's disease of ileum with other complication (HCC) Expected: 10/26/2022, Expires: 12/26/2022 [facility] Work Phone: Comment on above: Expected: 10/26/2022 , Expires: 12/26/2022 Start: 05-23-2022 ANNUAL PCP TEAM MERCHANDISE SUPPORT ASSOCIATE [place] DISEASE VISIT ANNUAL PCP TEAM CHRONIC DISEASE VISIT [facility] Start: 05-10-2022 DEPRESSION ASSESSMENT DEPRESSION ASS ESSMENT [facility] Start: 05-08-2022 Screening for malign ant neoplasm of cervix Cervical Cancer Screening [facility] Start: 03-24-2022 End: 05-24-2022 C reactive protein [Mass/volume] in Serum or Plasma C-REACTIVE PROTEIN (CRP) Lab Routine Crohn's disease of ileum with other complication (HCC) Expected: 03/24/2022, Expires: 05/24/2022 [facility] Work Phone: Comment on above: Expected: 03/24/2022 , Expires: 05/24/2022 Start: 03-24-2022 End: 05-24-2022 CBC W Auto Differential panel - Blood CBC + DIFF Lab Routine Crohn's disease of ileum with other complication (HCC) Expected: 03/24/2022, Expires: 05/24/2022 [facility] Work Phone: Comment on above: Expected: 03/24/2022 , Expires: 05/24/2022 Start: 03-24-2022 End: 05-24-2022 Comprehensive metabolic 2000 panel - Serum or Plasma COMP METABOLIC PANEL Lab Routine Crohn's disease of ileum with other complication (HCC) Expected: 03/24/2022, Expires: 05/24/2022 [facility] Work Phone: Comment on above: Expected: 03/24/2022 , Expires: 05/24/2022 Start: 03-24-2022 End: 05-24-2022 Erythrocyte sedimentation rate SED RATE WESTERGREN Lab Routine Crohn's disease of ileum with other complication (HCC) Expected: 03/24/2022, Expires: 05/24/2022 [facility] Work Phone: Comment on above: Expected: 03/24/2022 , Expires: 05/24/2022 Start: 01-15-2022 Ambulation without limitation [facility] Work Phone: Start: 01-15-2022 Medication education [facility] Work Phone: Start: 01-15-2022 [facility] Start: 01-15-2022 Procedure discontinued [facility] Work Phone: Start: 01-15-2022 Taking patient vital signs [facility] Work Phone: Start: 01-15-2022 Vital signs measurements [facility] Work Phone: Start: 01-15-2022 [facility] Work Phone: Start: 01-15-2022 Medical regimen orde rs management [facility] Work Phone: Start: 01-08-2022 Influenza vaccination INFLUENZA (#1) [facility] Start: 12-03-2021 End: 12-03-2022 BLOOD TB SCREEN, INCUBATED BLOOD TB SCREEN, INCUBATED Lab Routine Encounter for screening for viral disease Expected: 12/03/2021, Expires: 12/03/2022 [facility] Work Phone: Comment on above: Expected: 12/03/2021 , Expires: 12/03/2022 Start: 12-03-2021 End: 02-02-2022 CBC W Auto Differential panel - Blood CBC + DIFF Lab Routine Crohn's disease of ileum with other complication (HCC) Expected: 12/03/2021, Expires: 02/02/2022 [facility] Work Phone: Comment on above: Expected: 12/03/2021 , Expires: 02/02/2022 Start: 12-03-2021 End: 02-02-2022 HEPATITIS A ANTIBODY, IGG HEPATITIS A ANTIBODY, IGG Lab Routine Encounter for screening for viral disease Expected: 12/03/2021, Expires: 02/02/2022 [facility] Work Phone: Comment on above: Expected: 12/03/2021 , Expires: 02/02/2022 Start: 12-03-2021 End: 02-02-2022 Hepatitis B virus core Ab [Presence] in Serum HEP B CORE AB TOTAL Lab Routine Encounter for screening for viral disease Expected: 12/03/2021, Expires: 02/02/2022 [facility] Work Phone: Comment on above: Expected: 12/03/2021 , Expires: 02/02/2022 Start: 12-03-2021 End: 02-02-2022 Hepatitis B virus surface Ab [Presence] in Serum by Immunoassay HEP B SURF AG SCRN Lab Routine Encounter for screening for viral disease Expected: 12/03/2021, Expires: 02/02/2022 [facility] Work Phone: Comment on above: Expected: 12/03/2021 , Expires: 02/02/2022 Start: 12-03-2021 End: 02-02-2022 Hepatitis B virus surface Ab [Units/volume] in Serum HEP B SURF AB QUANT Lab Routine Encounter for screening for viral disease Expected: 12/03/2021, Expires: 02/02/2022 [facility] Work Phone: Comment on above: Expected: 12/03/2021 , Expires: 02/02/2022 Start: 12-03-2021 End: 02-02-2022 Hepatitis C virus Ab [Presence] in Serum HEP C AB IA W/CONF SCRN Lab Routine Encounter for screening for viral disease Expected: 12/03/2021, Expires: 02/02/2022 [facility] Work Phone: Comment on above: Expected: 12/03/2021 , Expires: 02/02/2022 Start: 11-24-2021 End: 12-08-2021 Influenza virus A and B RNA and SARS-CoV-2 (COVID-19) N gene panel - Respiratory specimen by PAULO with probe detection COVID WITH FLUA+B, ROUTINE Microbiology Routine Exposure to COVID-19 virus Expected: 11/24/2021, Expires: 12/08/2021 [facility] Work Phone: Comment on above: Expected: 11/24/2021 , Expires: 12/08/2021 Start: 10-02-2021 End: 10-16-2021 Influenza virus A and B RNA and SARS-CoV-2 (COVID-19) N gene panel - Respiratory specimen by PAULO with probe detection [facility] Work Phone: Comment on above: Expected: 10/02/2021 , Expires: 10/16/2021 Start: 05-10-2021 DEPRESSION ASSESSMENT DEPRESSION ASS ESSMENT [facility] Start: 05-06-2021 Adult depression screening assessment DEPRESSION SCREENING [facility] Start: 09-11-2020 COVID-19 VACCINE (2 - Booster for Tejas series) COVID-19 VACCINE (2 - Booster for Tejas series) [facility] Start: 08-14-2020 COVID-19 VACCINE (2 - Tejas risk series) COVID-19 VACCINE (2 - Tejas risk series) [facility] Start: 2009 SHINGRIX VACCINE (1 of 2) SHINGRIX VACCINE (1 of 2) [facility] Start: 2008 Anxiety Screening Anxiety Screening [facility] Start: 2008 Depression Screening Depression Scre ening [facility] Start: 2008 HEPATITIS C SCREENING HEPATITIS C SC REENING [facility] Start: 2008 HIV SCREENING HIV SCREENING [facility] Start: 2008 SPIROMETRY SPIROMETRY [facility] Start: 05-12-2004 HEPATITIS B (3 of 3 - Risk 3-dose series) HEPATITIS B (3 of 3 - Risk 3-dose series) [facility] Start: 2000 MENINGOCOCCAL B: Consider based on risk (1 of 4 - Increased Risk Bexsero 2-dose series) MENINGOCOCCAL B: Consider based on risk (1 of 4 - Increased Risk Bexsero 2-dose series) [facility] Start: 1996 PNEUMOCOCCAL (1 - PCV) PNEUMOCOCCAL (1 - PCV) [facility] Start: 1991 HEPATITIS A (1 of 2 - Risk 2-dose series) HEPATITIS A (1 of 2 - Risk 2-dose series) [facility] Bacteria identified in Urine by Culture BACTERIAL CULTURE, URINE Microbiology Routine Urinary frequency 01/02/2025 3:08 PM EDT [facility] Work Phone: BACTERIAL VAGINOSIS NAAT BACTERIAL VAGINOSIS NAAT Lab Routine Vaginal discharge 02/10/2024 2:43 PM EDT [facility] Calprotectin [Mass/mass] in Stool CALPROTECTIN,FECAL Lab Routine Generalized abdominal pain 08/01/2021 9:26 AM EDT [facility] Work Phone: Calprotectin [Mass/mass] in Stool CALPROTECTIN,FECAL Lab Routine Crohn's disease of ileum with other complication (HCC) Ordered: 12/03/2021 [facility] Work Phone: Comment on above: Ordered: 12/03/2021 Calprotectin [Mass/mass] in Stool CALPROTECTIN,FECAL Lab Routine Crohn's disease of ileum with other complication (HCC) Ordered: 03/24/2022 [facility] Work Phone: Comment on above: Ordered: 03/24/2022 Calprotectin [Mass/mass] in Stool CALPROTECTIN,FECAL Lab Routine Crohn's disease of ileum with other complication (HCC) Ordered: 10/26/2022 [facility] Work Phone: Comment on above: Ordered: 10/26/2022 SIMON/TRICHOMONAS NAAT SIMON/TRICHOMONAS NAAT Lab Routine Vaginal discharge 02/10/2024 2:43 PM EDT [facility] Fat [Mass/mass] in Stool [facility] Fat.neutral [Presenc e] in Stool [facility] Giardia lamblia+Cryptosporidium sp Ag [Presence] in Stool by Immunoassay CRYPTOSPORIDIUM AND GIARDIA ANTIGENS BY EIA Microbiology Routine Crohn's disease of ileum with other complication (HCC) Ordered: 12/03/2021 [facility] Work Phone: Comment on above: Ordered: 12/03/2021 Ova and parasites identified in Unspecified specimen by Light microscopy [facility] PANC ELASTASE, FECAL PANC ELASTA SE, FECAL Lab Routine Crohn's disease of ileum with other complication (HCC) Ordered: 12/03/2021 [facility] Work Phone: Comment on above: Ordered: 12/03/2021 Patient Education ED Abdominal P ain Unkn Cause Fem ED Gastritis (Adult) [facility] Work Phone: Patient referral [facility] Work Phone: Procedure [facility] Immunizations Immunization Date Immunization Notes Care Provider [facility] 12-23-2022 pneumococcal (PCV20) vaccine, 20 valent (PREVNAR 20) Magdalena Nuñez WARP PICKER.RECORDING ARTIST Work Phone: [facility] 12-23-2022 pneumococcal Conjuga te, unspecified formulation Magdalena Nuñez WARP PICKER.RECORDING ARTIST Work Phone: [facility] Work Phone: 02-17-2022 Human Papillomavirus 9-valent vaccine Annia Zhang MD Work Phone: [facility] 02-17-2022 influenza, injectabl e, quadrivalent, contains preservative Annia Zhang MD Work Phone: [facility] 02-17-2022 influenza virus vacc ine, unspecified formulation Tia Osei PA-C Work Phone: [facility] 05-08-2021 Human Papillomavirus 9-valent vaccine Vane Malave WARP PICKER.RECORDING ARTIST Work Phone: [facility] Work Phone: 02-05-2020 hepatitis B vaccine, adult dosage [facility] 02-05-2020 influenza, injectabl e, quadrivalent, preservative free Dr. Drake Whiting Work Phone: [facility] 02-05-2020 influenza, seasonal, injectable [facility] Work Phone: 03-16-2017 tetanus toxoid, redu ray diphtheria toxoid, and acellular pertussis vaccine, adsorbed [facility] 07-18-2015 tetanus toxoid, redu ray diphtheria toxoid, and acellular pertussis vaccine, adsorbed Vane Malave WARP PICKER.RECORDING ARTIST Work Phone: [facility] 03-28-2015 influenza, injectabl e, quadrivalent, contains preservative Vane Malave WARP PICKER.RECORDING ARTIST Work Phone: [facility] 02-20-2015 Influenza virus vaccine [facility] 01-01-2014 tetanus and diphther ia toxoids, adsorbed, preservative free, for adult use (2 Lf of tetanus toxoid and 2 Lf of diphtheria toxoid) [facility] 02-08-2012 influenza virus vacc ine, unspecified formulation Vane Malave WARP PICKER.RECORDING ARTIST Work Phone: [facility] 05-01-2010 human papilloma viru s vaccine, quadrivalent Vane Malave WARP PICKER.[facility] Work Phone: [facility] Work Phone: 05-01-2010 influenza virus vacc ine, unspecified formulation Vane Malave WARP PICKER.RECORDING ARTIST Work Phone: [facility] Work Phone: 05-01-2010 Meningococcal, MCV4, unspecified conjugate formulation(groups A, C, Y and W-135) Vane Malave WARP PICKER.RECORDING ARTIST Work Phone: [facility] Work Phone: 05-01-2010 tetanus toxoid, redu ray diphtheria toxoid, and acellular pertussis vaccine, adsorbed Vane Malave WARP PICKER.RECORDING ARTIST Work Phone: [facility] Work Phone: 01-11-2004 hepatitis B vaccine, pediatric or pediatric/adolescent dosage Vane Malave WARP PICKER.RECORDING ARTIST Work Phone: [facility] Work Phone: 01-11-2004 hepatitis B vaccine, unspecified formulation Alicia Reynolds WARP PICKER.RECORDING ARTIST Work Phone: [facility] 01-11-2003 diphtheria, tetanus toxoids and acellular pertussis vaccine Vane Malave WARP PICKER.RECORDING ARTIST Work Phone: [facility] Work Phone: 01-11-2003 hepatitis B vaccine, pediatric or pediatric/adolescent dosage Vane Malave WARP PICKER.RECORDING ARTIST Work Phone: [facility] Work Phone: 01-27-1996 diphtheria, tetanus toxoids and acellular pertussis vaccine Vane Malave WARP PICKER.[facility] Work Phone: [facility] Work Phone: 01-27-1996 measles, mumps and rubella virus vaccine Vane Malave WARP PICKER.[facility] Work Phone: [facility] Work Phone: 01-27-1996 poliovirus vaccine, inactivated Vane Malave WARP PICKER.[facility] Work Phone: [facility] Work Phone: 03-03-1994 diphtheria, tetanus toxoids and acellular pertussis vaccine Vane Malave WARP PICKER.RECORDING ARTIST Work Phone: [facility] Work Phone: 03-03-1994 poliovirus vaccine, inactivated Vane Malave WARP PICKER.[facility] Work Phone: [facility] Work Phone: 01-02-1994 diphtheria, tetanus toxoids and acellular pertussis vaccine Vane Malave WARP PICKER.RECORDING ARTIST Work Phone: [facility] Work Phone: 01-02-1994 haemophilus influenz ae type b vaccine, HbOC conjugate Vane Malave WARP PICKER.RECORDING ARTIST Work Phone: [facility] Work Phone: 01-02-1994 poliovirus vaccine, inactivated Vane Malave WARP PICKER.RECORDING ARTIST Work Phone: [facility] Work Phone: 06-03-1993 diphtheria, tetanus toxoids and acellular pertussis vaccine Vane Malave WARP PICKER.RECORDING ARTIST Work Phone: [facility] Work Phone: 06-03-1993 measles, mumps and rubella virus vaccine Vane Malave WARP PICKER.RECORDING ARTIST Work Phone: [facility] Work Phone: 06-03-1993 poliovirus vaccine, inactivated Vane Malave WARP PICKER.RECORDING ARTIST Work Phone: [facility] Work Phone: Payers Date Payer Category Payer Self-pay [id number] 2023 Medicaid [id number] 2020 Medicaid [employer]ICA[employer] [id number] 2020-Present [phone] [address] [place] [address] Medicaid [id number] 2020 Medicaid [id number] 2020 Unknown MMO MMO [employer] PLUS [id number] 2020-Present [phone] [address] [place] [address] PPO [id number] 2019 Unknown [id number] [id number] 2019 Unknown [id number]. 1.13.159.2.7.3.6 [id number] 2018 Unknown [id number] 2018 Unknown [id number] 2018 Unknown [id number] 1990 Unknown [id number] 1990 Unknown [id number] Unknown [id number] Unknown [facility] [id number] Unknown MED M[employer] [id number] Unknown [id number] Unknown ANTHEM [id number] Unknown [id number] [id number] Unknown [id number] .[id number] Unknown [id number] .[id number] Unknown [id number] .[id number] Unknown [id number] .1.877218.3.579.2.462 Unknown [id number] 06.25.830.1.415237.3.579.2.462 Unknown [id number] 06.25.830.1.004980.3.579.2.462 Unknown [id number] 06.25.830.1.202637.3.579.2.462 Unknown [id number] 06.25.830.1.708965.3.579.2.462 Unknown [id number] 2.16.840.1.276828.3.579.2.462 Unknown [id number] 2.16.840.1.278800.3.579.2.462 Unknown [id number] 2.16.840.1.245041.3.579.2.462 Unknown [id number] 2.16.840.1.233447.3.579.2.462 Unknown [id number] 2.16.840.1.001570.3.579.2.462 Unknown [id number] 2.16.840.1.413804.3.579.2.462 Unknown [id number] 2.16.840.1.098579.3.579.2.462 Unknown [id number] 2.16.840.1.728445.3.579.2.462 Unknown [id number] 2.16.840.1.798504.3.579.2.462 Unknown [id number] 2.16.840.1.757761.3.579.2.462 Unknown [id number] 2.16.840.1.104436.3.579.2.462 Unknown [id number] 2.16.840.1.102809.3.579.2.462 Social History Date Type Detail Facility Start: 07-23-2010 End: 03-30-2024 Tobacco smoking status ILIS Never smoked tobacco [facility] Work Phone: Start: 07-23-2010 End: 12-31-2021 Tobacco use and exposure Smokeless tobacco non-user [facility] Work Phone: Start: 07-23-2021 End: 09-25-2023 Alcohol intake Current non-drinker of alcohol (finding) [facility] Start: 05-06-2020 History SDOH Alcohol Frequency 1 [facility] Start: 05-06-2020 History SDOH Alcohol Std Drinks 98 [facility] Start: 10-23-2019 End: 05-06-2020 History SDOH Social Connections Phone 5 [facility] Start: 05-06-2020 History SDOH Social Connections Get Together 3 [facility] Start: 05-06-2020 History SDOH Social Connections Meetings 2 [facility] Start: 05-06-2020 History SDOH Physica l Activity DPW 0 [facility] Start: 09-14-2019 Education 16 [facility] Start: 1990 Sex Assigned At Not on file [facility] Start: 07-13-2021 End: 02-09-2022 Exposure to SARS-CoV-2 (event) Not sure [facility] Start: 11-14-2021 End: 12-03-2021 Exposure to SARS-CoV-2 (event) Yes [facility] Work Phone: Start: 01-08-2022 End: 04-16-2023 Tobacco smoking status NHIS Unknown if ever smoked [facility] Start: 02-20-2020 None [facility] Start: 02-20-2020 With Family [facility] Start: 01-27-2021 Non-smoker [facility] Start: 1990 Sex Assigned At Female [facility] Start: 05-06-2020 End: 09-17-2022 History of Social function [facility] Start: 05-06-2020 End: 09-17-2022 Social connection and isolation panel [facility] Start: 04-10-2012 Active Member of Clu bs or Organizations Not on file [facility] Are you now , , , , never or living with a partner? [facility] How often to you hav e a drink containing alcohol? Never [facility] Do you feel stress - tense, restless, nervous, or anxious, or unable to sleep at night because your mind is troubled all the time - these days [OSQ] Not at all [facility] (I/We) worried wheth er (my/our) food would run out before (I/we) got money to buy more. Never true [facility] At any time in the p ast 12 months, were you homeless or living in long-term [including now]? No [facility] Start: 02-10-2024 End: 01-05-2025 Alcoholic beverage intake Ex-drinker (finding) [facility] NEGATED: Highlighted row [facility] Medical Equipment Procedure Code Equipment Code Equipment Origin al Text Equipment Identifier Dates 05/12 TUBULAR LCP PLATE FDA Start: 12-29-2017 2.7MM CORTEX SCREWS FDA Start : 12-29-2017 4.0MM F-THR CANC BONE SCREW FDA Start: 12-29-2017 4.0MM F-THR CANC BONE SCREWS FDA Start: 12-29-2017 4.0MM F-THR CANC BONE SCREWS FDA Start: 12-29-2017 4.0MM PART-THR C ANC BONE SCREW FDA Start: 12-29-201705/12 TUBULAR LCP PLATE FDA Start: 12-29-2017 2.7MM CORTEX SCREWS FDA Start : 12-29-2017 4.0MM F-THR CANC BONE SCREW FDA Start: 12-29-2017 4.0MM F-THR CANC BONE SCREWS FDA Start: 12-29-2017 4.0MM F-THR CANC BONE SCREWS FDA Start: 12-29-2017 4.0MM PART-THR C ANC BONE SCREW FDA Start: 12-29-201705/12 TUBULAR LCP PLATE FDA Start: 12-29-2017 2.7MM CORTEX SCREWS FDA Start : 12-29-2017 4.0MM F-THR CANC BONE SCREW FDA Start: 12-29-2017 4.0MM F-THR CANC BONE SCREWS FDA Start: 12-29-2017 4.0MM F-THR CANC BONE SCREWS FDA Start: 12-29-2017 4.0MM PART-THR C ANC BONE SCREW FDA Start: 12-29-201705/12 TUBULAR LCP PLATE FDA Start: 12-29-2017 2.7MM CORTEX SCREWS FDA Start : 12-29-2017 4.0MM F-THR CANC BONE SCREW FDA Start: 12-29-2017 4.0MM F-THR CANC BONE SCREWS FDA Start: 12-29-2017 4.0MM F-THR CANC BONE SCREWS FDA Start: 12-29-2017 4.0MM PART-THR C ANC BONE SCREW FDA Start: 12-29-201705/12 TUBULAR LCP PLATE FDA Start: 12-29-2017 2.7MM CORTEX SCREWS FDA Start : 12-29-2017 4.0MM F-THR CANC BONE SCREW FDA Start: 12-29-2017 4.0MM F-THR CANC BONE SCREWS FDA Start: 12-29-2017 4.0MM F-THR CANC BONE SCREWS FDA Start: 12-29-2017 4.0MM PART-THR C ANC BONE SCREW FDA Start: 12-29-201705/12 TUBULAR LCP PLATE FDA Start: 12-29-2017 2.7MM CORTEX SCREWS FDA Start : 12-29-2017 4.0MM F-THR CANC BONE SCREW FDA Start: 12-29-2017 4.0MM F-THR CANC BONE SCREWS FDA Start: 12-29-2017 4.0MM F-THR CANC BONE SCREWS FDA Start: 12-29-2017 4.0MM PART-THR C ANC BONE SCREW FDA Start: 12-29-201705/12 TUBULAR LCP PLATE FDA Start: 12-29-2017 2.7MM CORTEX SCREWS FDA Start : 12-29-2017 4.0MM F-THR CANC BONE SCREW FDA Start: 12-29-2017 4.0MM F-THR CANC BONE SCREWS FDA Start: 12-29-2017 4.0MM F-THR CANC BONE SCREWS FDA Start: 12-29-2017 4.0MM PART-THR C ANC BONE SCREW FDA Start: 12-29-201705/12 TUBULAR LCP PLATE FDA Start: 12-29-2017 2.7MM CORTEX SCREWS FDA Start : 12-29-2017 4.0MM F-THR CANC BONE SCREW FDA Start: 12-29-2017 4.0MM F-THR CANC BONE SCREWS FDA Start: 12-29-2017 4.0MM F-THR CANC BONE SCREWS FDA Start: 12-29-2017 4.0MM PART-THR C ANC BONE SCREW FDA Start: 12-29-201705/12 TUBULAR LCP PLATE FDA Start: 12-29-2017 2.7MM CORTEX SCREWS FDA Start : 12-29-2017 4.0MM F-THR CANC BONE SCREW FDA Start: 12-29-2017 4.0MM F-THR CANC BONE SCREWS FDA Start: 12-29-2017 4.0MM F-THR CANC BONE SCREWS FDA Start: 12-29-2017 4.0MM PART-THR C ANC BONE SCREW FDA Start: 12-29-201705/12 TUBULAR LCP PLATE FDA Start: 12-29-2017 2.7MM CORTEX SCREWS FDA Start : 12-29-2017 4.0MM F-THR CANC BONE SCREW FDA Start: 12-29-2017 4.0MM F-THR CANC BONE SCREWS FDA Start: 12-29-2017 4.0MM F-THR CANC BONE SCREWS FDA Start: 12-29-2017 4.0MM PART-THR C ANC BONE SCREW FDA Start: 12-29-201705/12 TUBULAR LCP PLATE FDA Start: 12-29-2017 2.7MM CORTEX SCREWS FDA Start : 12-29-2017 4.0MM F-THR CANC BONE SCREW FDA Start: 12-29-2017 4.0MM F-THR CANC BONE SCREWS FDA Start: 12-29-2017 4.0MM F-THR CANC BONE SCREWS FDA Start: 12-29-2017 4.0MM PART-THR C ANC BONE SCREW FDA Start: 12-29-201705/12 TUBULAR LCP PLATE FDA Start: 12-29-2017 2.7MM CORTEX SCREWS FDA Start : 12-29-2017 4.0MM F-THR CANC BONE SCREW FDA Start: 12-29-2017 4.0MM F-THR CANC BONE SCREWS FDA Start: 12-29-2017 4.0MM F-THR CANC BONE SCREWS FDA Start: 12-29-2017 4.0MM PART-THR C ANC BONE SCREW FDA Start: 12-29-2017 Goals Date Patient Goal Desired Activity /State Functional Status Date Assessment Result Facility 12-10-2014 Are you deaf, or do you have serious difficulty hearing No 12/10/2014 3:37 PM Leeanne Martin Ma [facility] 12-10-2014 Are you blind, or do you have serious difficulty seeing, even when wearing glasses No 12/10/2014 3:37 PM Leeanne Martin Ma [facility] 12-10-2014 Do you have serious difficulty walking or climbing stairs No 12/10/2014 3:37 PM Leeanne Martin Ma [facility] 12-10-2014 Do you have difficul ty dressing or bathing No 12/10/2014 3:37 PM Leeanne Martin Ma [facility] 12-10-2014 Because of a physica l, mental, or emotional condition, do you have difficulty doing errands alone such as visiting a physician's office or shopping No 12/10/2014 3:37 PM Leeanne Martin Ma [facility] Mental Status Date Assessment Result Facility 02-27-2025 Cognitive function Awake [facility] Work Phone: 01-02-2025 Cognitive function Voice/Name [facility] Work Phone: 11-09-2024 Cognitive function Awake;Alert;A ppropriate ;Follows Commands [facility] Work Phone: 10-12-2024 Cognitive function Awake;Alert;A ppropriate ;Follows Commands [facility] Work Phone: 09-28-2024 Cognitive function Awake;Alert;A ppropriate ;Follows Commands [facility] Work Phone: 06-01-2023 Cognitive function Voice/Name [facility] Work Phone: 04-12-2023 Cognitive function Voice/Name [facility] Work Phone: 04-07-2023 Cognitive function Voice/Name [facility] Work Phone: 01-15-2022 Cognitive function Voice/Name [facility] Work Phone: 12-10-2014 Because of a physica l, mental, or emotional condition, do you have serious difficulty concentrating, remembering, or making decisions No 12/10/2014 3:37 PM EDT Masters Leeanne Sahu [facility] Clinical Notes 07-23-2015 to 02-23-2025 Note Date & Type Note Facility 02-23-2025 Evaluation note Diagnosis Onset Date Resolution Crohn's disease acute February 072024 2:30pm Dysphagia acute February 23, 2025 2:30pm [facility] Work Phone: 1(695) 598-811710-17-2025 [facility] [address] [address] OFFICE VISIT Date of Service: 02/23/25 MR#: [id number] Acct: [id number] Name: MARY GUILLEN Rep #: [id number] : 1990 Provider: Rey Alcaraz DO Age/Sex: 34/F [facility] Status: Signed Intake Vital Signs 11/09/24 12:22 01/02/25 14:40 Height 5 ft 2 in 5 ft 2 in Intake Visit Reasons: 5 M FU/Crohn's disease/ Allergies morphine Adverse Reaction (Verified 11/09/24 12:33) Vomiting pseudoephedrine HCl (From Sudafed) Adverse Reaction (Verified 11/09/24 12:33) Vomiting Medications ?Medication ?Instructions ?Recorded ?Confirmed ?Type cholecalciferol (vitamin D3) 10 10 mcg PO DAILY 02/23/25 History mcg (400 unit) capsule (Vitamin D3) albuterol sulfate 90 mcg/actuation 1 - 2 inh inhalatio n PRN PRN ASTHMA 01/08/22 02/23/25 History aerosol inhaler dicyclomine 10 mg capsule 10 mg PO PRN PRN ABD PAIN 02/23/25 History ferrous sulfate 142 mg (45 mg 45 mg PO BID 01/08/22 History iron) tablet,extended release (Slow Release Iron) lansoprazole 30 mg capsule,delayed 30 mg PO DAILY PRN GERD 02/28/24 02/23/25 History release amitriptyline 10 mg tablet 10 mg PO QHS #30 tabs 12/2502/23/25 Rx vedolizumab 300 mg intravenous 300 mg .Route 02/23/25 02/23/25 History solution (Entyvio) PFSH Medical History Easy bruising History of ulceration Heartburn Gastric reflux Periumbilical hernia IFG (impaired fasting glucose) Anemia History of Crohn's disease Non-smoker Hx of fracture of leg Encounter for screening for COVID-19 Acute conjunctivitis, right eye Acute sinusitis, unspecified Asthma Surgical History History of hernia surgery History of tubal ligation History of ear surgery Hx laparoscopic cholecystectomy Social History Smoking Status: Never smoker alcohol intake: never HPI HPI Details: MARY GUILLEN, is a 34 F who presents to the office today for follow up. [facility] established for management of Crohn?s disease. LV 7.27.22 indicates?Pentasa QID and entocorttaper?started with improvement of bowel irregularity.?Start Remicade infusions?following biochemical and tubal ligation 01.15.22?EGD and colonoscopy 07.23.21?records requested from [facility]. OV indicates stricture.?CT enterography 08.15.21?mild circumferential hyperenhancement of TI with narrowing ofdistal TI, caliber 6mm? ? 09.26.22/02.01.23 requested egd/colon and gi records? OV 02.22.23 Pt previously seeing GI in [place]. Would like to establish here due to distance. moderately controlled with Remicaide, Pentasa and as needed Dicyclomine. Still has some abdominal pain anddiarrhea. Adjusting diet does help. Sx get worse leading up to next infusion. OV 08.20.23 Pt reports minimal symptoms or concerns. Pt is taking dicyclomine, Stelara, Vitamin D, and sucralfate. Pt states that she has small amount of bloodin her stool, maybe once a week, if she has to strain. OV 02.28.24 pt reports that she is feeling well overall and denies GI symptoms of concern at this time. Pt reports 2-3 bm per day; reports occasional blood in her stool due to straining. Continues with suppositories, budesonide, and Stelara, last injection was 01.18.24. EGD 04.03.24 Esophageal mucosal changes secondary to eosinophilic esophagitis. Dilated. A large amount of food (residue) in the stomach. No gross lesions in the duodenal bulb. Biopsies were taken with a cold forceps for evaluation of eosinophilic esophagitis. OV 09.04.24 pt denies GI symptoms of concern at this time. Continues with [id number]. abd/pelvis CT 09.14.24 Stable study findings as detailed. No acute pelvi-abdominal abnormalities, collections or free air. OV 02.23. pt reports that she has not noticed an improvement in her symptoms since switching fromthe Stelara to Entyvio. Pt reports that she has been vomiting more and does not think that she is digesting her food. pt reports emesis about 3 times a week. ESR / CRP Calp / Lact Serum / AB 7.17. 7 / 13.4 -- / -- 0.7 / neg 4.16. 19 / 14.8 -- / -- 1.8 / neg 5.. Start Entyvio 8.. 15 / 13.0 -- / -- 17 / neg ROS Const Constitutional: No fatigue, fever(s) or weight change ENT ENT: No difficulty swallowing Gastro GI: Positive for nausea/dyspepsia and vomiting; No abdominal pain, belching, bloating, change in bowel habits, change in stool character, coffee ground emesis, constipation, cramping, diarrhea, heartburn, difficulty swallowing, feeling full early,excessive flatus, incontinent of stools, Vomiting blood/hematemesis, Blood in stool, loose stools, Black,tarry stools, pain with swallowing or other Musc Musculoskeletal: No joint pain Skin Skin: No yellowing of the eye or itchy eyes Psych Psychiatric: No anxiety and No depression Endo Endocrine: No fatigue or weight change Aller/Imm Allergy/Immunologic: No itchy eyes Estevan/Lymp Hematologic/Lymphatic: No easy bleeding or easy bruising Exam Const General: cooperative, healthy appearing, uncomfortable and no acute distress Nutritional Appearance: well nourished Orientation: alert, awake and oriented x3 HENMT Head: normal to inspection Ears: hearing grossly normal bilaterally, external ears normal, TM's normal bilaterally and EAC's normal Nose: external nose normal, nares normal, septum normal and nasal discharge clear Face and sinus: normal facial exam, sinuses nontender and face symmetric Mouth: oral mucosae normal, lip normal, tongue normal and oropharynx normal Throat: posterior oropharynx normal, tonsils normal, uvula midline and no postnasal drainage Eyes General: appearance normal, both eyes and all related structures Neck Neck: normal visual inspection, full ROM, no lymphadenopathy, no meningeal signsand supple Neck mass: No Thyroid: thyroid normal Lymphatic: no lymphadenopathy noted Chest Chest palpation & inspection: normal inspection of the chest Resp Effort & Inspection: normal respiratory effort, able to speak in complete sentences, symmetric chest movement and cough Quality of cough: dry (Nonproductive in office today) Auscultation: Bilateral: Clear to Auscultation Cardio Palpation: normal PMI Rate: tachycardic Rhythm: regular rhythm Heart Sounds: S1 normal, S2 normal, no gallops, no murmurs and no rubs Pulses: radial pulses present GI Inspection: normal to inspection Palpation: soft and no hepatosplenomegaly Skin General: no rashes or lesions noted Neuro General: patient alert, patient awake, patient oriented x3 and gait normal Cognition: normal cognition Speech: speech normal Gait: normal gait Motor: muscle tone normal throughout Sensory Exam: no sensory deficits noted Psych Appearance: grossly normal Mental Status: mental status grossly normal Mood: congruent mood Affect: normal affect Speech and Movement: speech and movement normal Attitude: cooperative Thought Process: normal Thought Content: normal Judgment: judgment good Assessment and Plan Assessment and Plan (1) Crohn's disease: Status: Acute Qualifiers: Gastrointestinal tract location: small and large intestine Digestive disease complication type: without complication Qualified Code(s): K50.80 - Crohn's disease of both small and large intestine without complications Plan: 32-year-old with past medical history of Crohn's disease involving the small intestines but typically the ileum and the right side of the colon including thececum, ileocecal valve and ascending colonthat was seen previously on colonoscopy. She had a CT enterography that also showed some possible narrowing consistent with inflammatory Crohn's disease of the terminal ileum. She does not have any extraintestinal manifestations of Crohn's disease including no findings, pancreatic findings, liver findings, skin findings. She is not havingany night sweats or fatigue. She does not know if she has had a updated hepatitis B or Tuberculosis screening. She takes Remicade every 8 weeks at a 5 mg/kg dose and she takes Pentasa 4 times a day at a dose of 500 mg. She notices that she starts getting symptoms. Therefore we switched her to Stelara. She underwent an upper endoscopy and was discovered to have peptic ulcer disease. Biopsies were negative for H. pylori, intestinal metaplasia dysplasia or cancer. We gave her Carafate therapy. She has been on that for approximately 8 weeks. She likes totake that because she is able to have more solid stools with that. She underwent a colonoscopy and was covered to have terminal ileitis with some aphthous ulcerations. Since being instituted on Stelara therapy she is having more formed stools with 1-2 bowel movements a day with occasional blood with constipation. She is having no tenesmus, cramping, abdominal pain, bloating or indigestion. She is also eliminated pork from her diet. She thinks this has had a great effect on her. She will continue current medication regimen and follow- up in 6 months we will get stool studies and biochemical workup to confirm Stelara levels and antibody levels. She was doing very well from a GI standpoint regarding her Crohn's disease. Shewas having minimal abdominal pain, cramping, nausea or diarrhea. She does get occasional loose stools with eating which is to be expected in a patient that isstatus post cholecystectomy. She is having some intermittent bleeding per rectum which is painless. I think it is likely hemorrhoidal bleeding. Her inflammatory markers came back elevated at 14.64 CRP and 35 for her ESR. Also her fecal calprotectin was elevated and her Stelara levels have been continuallysubtherapeutic ranging between 1 and 1.9. We will get a CT scan abdomen pelvis with oral and IV contrast and transition her to Entyvio. (2) Dysphagia: Status: Acute Plan: She is also having intermittent esophageal dysphagia. She does have gastroesophageal reflux diseaseand underwent an upper endoscopy which had shownerosive esophagitis along with an esophageal ring at the distal esophagus. She did not undergo dilation at that time. I thought she do fine with medical therapy. However she says she does not want to take medical therapy and low shewill undergo esophageal dilation. She will undergo an upper endoscopy. She wasexplained alternatives, risk, benefits include not withstanding bleeding, infection, sepsis, perforation, need for emergent urgent . Shehave an ASAof 3. Coding Level of Care Code Off vis,est,level 4 Diagnoses Crohn's disease of both small and large intestine without complication K50.80 Gastrointestinal tract location: small and large intestine Digestive disease complication type: without complication Dysphagia R13.10 02/23/25 1732 d DO> Date _ Rey Friend DO Cosigner Signature: Date (if applicable) CC: ~ [facility]10-17-2025 Progress note Author Rey Alcaraz [facility] Note Date/Time February 23, 2025 3 :42pm [facility] [address] [place] [address] OFFICE VISIT Date of Service: 02/23/25 MR#: [id number] Acct: [id number] Name: MARY GUILLEN Rep #: [id number] : 1990 Provider: Rey Alcaraz DO Age/Sex: 34/F Location: [place] Status: Signed Intake Vital Signs 11/09/24 12:22 01/02/25 14:40 Height 5 ft 2 in 5 ft 2 in Intake Visit Reasons: 5 M FU/Crohn's disease/ Allergies morphine Adverse Reaction (Verified 11/09/24 12:33) Vomiting pseudoephedrine HCl (From Sudafed) Adverse Reaction (Verified 11/09/24 12:33) Vomiting Medications ?Medication ?Instructions ?Recorded ?Confirmed ?Type cholecalciferol (vitamin D3) 10 10 mcg PO DAILY 02/23/25 History mcg (400 unit) capsule (Vitamin D3) albuterol sulfate 90 mcg/actuation 1 - 2 inh inhalatio n PRN PRN ASTHMA 01/08/22 02/23/25 History aerosol inhaler dicyclomine 10 mg capsule 10 mg PO PRN PRN ABD PAIN 02/23/25 History ferrous sulfate 142 mg (45 mg 45 mg PO BID 01/08/22 History iron) tablet,extended release (Slow Release Iron) lansoprazole 30 mg capsule,delayed 30 mg PO DAILY PRN GERD 02/28/24 02/23/25 History release amitriptyline 10 mg tablet 10 mg PO QHS #30 tabs 12/2502/23/25 Rx vedolizumab 300 mg intravenous 300 mg .Route 02/23/25 02/23/25 History solution ([facility]vio) [facility] History Easy bruising History of ulceration Heartburn Gastric reflux Periumbilical hernia IFG (impaired fasting glucose) Anemia History of Crohn's disease Non-smoker Hx of fracture of leg Encounter for screening for COVID-19 Acute conjunctivitis, right eye Acute sinusitis, unspecified Asthma Surgical History History of hernia surgery History of tubal ligation History of ear surgery Hx laparoscopic cholecystectomy Social History Smoking Status: Never smoker alcohol intake: never HPI HPI Details: MARY GUILLEN, is a 34 F who presents to the office today for follow up. [facility] established for management of Crohn?s disease. LV 12.03.21 indicates?Pentasa QID and entocort taper?started with improvement of bowel irregularity.?Start Remicade infusions?following biochemical and tubal ligation 01.15.22?EGD and colonoscopy 07.23.21?records requested from [facility]. OV indicates stricture.?CT enterography 08.15.21?mild circumferential hyperenhancement of TI with narrowing of distal TI, caliber 6mm? ? 09.26.22/02.01.23 requested egd/colon and gi records? OV 02.22.23 Pt previously seeing GI in [place]. Would like to establish here due to distance. moderately controlled with Remicaide, Pentasa and as needed Dicyclomine. Still has some abdominal pain and diarrhea. Adjusting diet does help. Sx get worse leading up to next infusion. OV 4.05.02 Pt reports minimal symptoms or concerns. Pt is taking dicyclomine, Stelara, Vitamin D, and sucralfate. Pt states that she has small amount of bloodin her stool, maybe once a week, if she has to strain. OV 10.. pt reports that she is feeling well overall and denies GI symptoms of concern at this time. Pt reports 2-3 bm per day; reports occasional blood in her stool due to straining. Continues with suppositories, budesonide, and Stelara, last injection was 01.18.24. EGD 04.03.24 Esophageal mucosal changes secondary to eosinophilic esophagitis. Dilated. A large amount of food (residue) in the stomach. No gross lesions in the duodenal bulb. Biopsies were taken with a cold forceps for evaluation of eosinophilic esophagitis. OV 09.04.24 pt denies GI symptoms of concern at this time. Continues with [id number]. abd/pelvis CT 09.14.24 Stable study findings as detailed. No acute pelvi-abdominal abnormalities, collections or free air. OV 02.23.25 pt reports that she has not noticed an improvement in her symptoms since switching from the [facility] to [facility]. Pt reports that she has been vomiting more and does not think that she is digesting her food. pt reports emesis about 3 times a week. ESR / CRP Calp / Lact Serum / AB 7.. 7 / 13.4 -- / -- 0.7 / neg 4 19 / 14.8 -- / -- 1.8 / neg 5 Start Entyvio 12.21.24 15 / 13.0 -- / -- 17 / neg ROS Const Constitutional: No fatigue, fever(s) or weight change ENT ENT: No difficulty swallowing Gastro GI: Positive for nausea/dyspepsia and vomiting; No abdominal pain, belching, bloating, change in bowel habits, change in stool character, coffee ground emesis, constipation, cramping, diarrhea, heartburn, difficulty swallowing, feeling full early, excessive flatus, incontinent of stools, Vomiting blood/hematemesis, Blood in stool, loose stools, Black,tarry stools, pain with swallowing or other Musc Musculoskeletal: No joint pain Skin Skin: No yellowing of the eye or itchy eyes Psych Psychiatric: No anxiety and No depression Endo Endocrine: No fatigue or weight change Aller/Imm Allergy/Immunologic: No itchy eyes Estevan/Lymp Hematologic/Lymphatic: No easy bleeding or easy bruising Exam Const General: cooperative, healthy appearing, uncomfortable and no acute distress Nutritional Appearance: well nourished Orientation: alert, awake and oriented x3 HENMT Head: normal to inspection Ears: hearing grossly normal bilaterally, external ears normal, TM's normal bilaterally and EAC's normal Nose: external nose normal, nares normal, septum normal and nasal discharge clear Face and sinus: normal facial exam, sinuses nontender and face symmetric Mouth: oral mucosae normal, lip normal, tongue normal and oropharynx normal Throat: posterior oropharynx normal, tonsils normal, uvula midline and no postnasal drainage Eyes General: appearance normal, both eyes and all related structures Neck Neck: normal visual inspection, full ROM, no lymphadenopathy, no meningeal signsand supple Neck mass: No Thyroid: thyroid normal Lymphatic: no lymphadenopathy noted Chest Chest palpation & inspection: normal inspection of the chest Resp Effort & Inspection: normal respiratory effort, able to speak in complete sentences, symmetric chest movement and cough Quality of cough: dry (Nonproductive in office today) Auscultation: Bilateral: Clear to Auscultation Cardio Palpation: normal PMI Rate: tachycardic Rhythm: regular rhythm Heart Sounds: S1 normal, S2 normal, no gallops, no murmurs and no rubs Pulses: radial pulses present GI Inspection: normal to inspection Palpation: soft and no hepatosplenomegaly Skin General: no rashes or lesions noted Neuro General: patient alert, patient awake, patient oriented x3 and gait normal Cognition: normal cognition Speech: speech normal Gait: normal gait Motor: muscle tone normal throughout Sensory Exam: no sensory deficits noted Psych Appearance: grossly normal Mental Status: mental status grossly normal Mood: congruent mood Affect: normal affect Speech and Movement: speech and movement normal Attitude: cooperative Thought Process: normal Thought Content: normal Judgment: judgment good Assessment and Plan Assessment and Plan (1) Crohn's disease: Status: Acute Qualifiers: Gastrointestinal tract location: small and large intestine Digestive disease complication type: without complication Qualified Code(s): K50.80 - Crohn's disease of both small and large intestine without complications Plan: 32-year-old with past medical history of Crohn's disease involving the small intestines but typically the ileum and the right side of the colon including thececum, ileocecal valve and ascending colon that was seen previously on colonoscopy. She had a CT enterography that also showed some possible narrowing consistent with inflammatory Crohn's disease of the terminal ileum. She does not have any extraintestinal manifestations of Crohn's disease including no findings, pancreatic findings, liver findings, skin findings. She is not havingany night sweats or fatigue. She does not know if she has had a updated hepatitis B or Tuberculosis screening. She takes Remicade every 8 weeks at a 5 mg/kg dose and she takes Pentasa 4 times a day at a dose of 500 mg. She notices that she starts getting symptoms. Therefore we switched her to Stelara. She underwent an upper endoscopy and was discovered to have peptic ulcer disease. Biopsies were negative for H. pylori, intestinal metaplasia dysplasia or cancer. We gave her Carafate therapy. She has been on that for approximately 8 weeks. She likes totake that because she is able to have more solid stools with that. She underwent a colonoscopy and was covered to have terminal ileitis with some aphthous ulcerations. Since being instituted on Stelara therapy she is having more formed stools with 1-2 bowel movements a day with occasional blood with constipation. She is having no tenesmus, cramping, abdominal pain, bloating or indigestion. She is also eliminated pork from her diet. She thinks this has had a great effect on her. She will continue current medication regimen and follow-up in 6 months we will get stool studies and biochemical workup to confirm Stelara levels and antibody levels. She was doing very well from a GI standpoint regarding her Crohn's disease. Shewas having minimal abdominal pain, cramping, nausea or diarrhea. She does get occasional loose stools with eating which is to be expected in a patient that isstatus post cholecystectomy. She is having some intermittent bleeding per rectum which is painless. I think it is likely hemorrhoidal bleeding. Her inflammatory markers came back elevated at 14.64 CRP and 35 for her ESR. Also her fecal calprotectin was elevated and her Stelara levels have been continuallysubtherapeutic ranging between 1 and 1.9. We will get a CT scan abdomen pelvis with oral and IV contrast and transition her to Entyvio. (2) Dysphagia: Status: Acute Plan: She is also having intermittent esophageal dysphagia. She does have gastroesophageal reflux disease and underwent an upper endoscopy which had shownerosive esophagitis along with an esophageal ring at the distal esophagus. She did not undergo dilation at that time. I thought she do fine with medical therapy. However she says she does not want to take medical therapy and low shewill undergo esophageal dilation. She will undergo an upper endoscopy. She wasexplained alternatives, risk, benefits include not withstanding bleeding, infection, sepsis, perforation, need for emergent urgent . She have an ASAof 3. Coding Level of Care Code Off vis,est,level 4 Diagnoses Crohn's disease of both small and large intestine without complication K50.80 Gastrointestinal tract location: small and large intestine Digestive disease complication type: without complication Dysphagia R13.10 02/23/25 1732 <Electronically signed by Rey milner DO> Date _ Rey Alcaraz DO Cosigner Signature: Date (if applicable) CC: ~ [facility] Work Phone: [phone]) 565-485610-09-2025 NoteHNO ID: [id number] Author: ANNIA REDD MD Service: ? Author Type: Physician Type: Progress Notes Filed: 02/23/2025 08:49 Note Text: Automation Qtp Tester offered: Patient declines. Hernandez is a 34 year old who presents for an annual gynecologic exam - increased vaginal discharge- no changes in odor or color- denies itching, burning or pain. Has recently changed soaps. Also on a new medication for Crohns disease. 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 and HS Still get period: Yes Menses: cycles every 28 days and 4 days of flow Menstrual flow: Moderate Sexually active: Yes Contraception: Tubal Ligation Contraception frequency: Always HPV vaccine: No HPV:negative Last pap smear: 2020 wnl History of abnormal pap: No Last mammogram: na Sexually active: No- last encounter 3 mo ago OB History Gravida4 Para2 Term2 Preterm0 AB2 Living2 SAB2 IAB0 Ectopic0 Multiple0 Live Births2 Research Scholar History LMP: 02/10/2025 (Approximate), Having periods Age at Menarche: Age at First : Age at Menopause: Research Scholar History Comments: Sexual Activity: Not Currently; Male Contraception: Tubal Ligation PAST MEDICAL HISTORY Diagnosis Date Anemia Asthma (HCC) Crohn's disease (HCC) Impaired fasting glucose 09/2014 Miscarriage (HCC) Unspecified asthma(493.90) PAST SURGICAL HISTORY Procedure Laterality Date CHOLECYSTECTOMY HX 2016 COLONOSCOPY 07/23/2021 EGD 07/23/2021 INSERTION OF IUD 06/11/2009 Mirena IUD REMOVAL (CERAMIC TILE SETTER DEPT)_*FL 02/2010 NEXPLANON INSERTION 03/19/2014,10/2015 left arm NEXPLANON REMOVAL 04/08/2017 PAST SURGICAL HISTORY OF Left 12/29/2017 ORIF medial and lateral malleolus of trimalleolar ankle fracture; Dr. Jeri Ramesh REPAIR UMBILICAL HERNIA 01/15/2022 SALPINGECTOMY Bilateral 01/15/2022 laparoscopic TYMPANOSTOMY LOCAL/TOPICAL ANESTHESIA FAMILY HISTORY Problem Relation Age of Onset [...] Diabetes Paternal Grandmother Asthma Son Asthma Son SOCIAL HISTORY Social History Tobacco Use Smoking status: Never Smokeless tobacco: Never Vaping Use Vaping status: Never Used Substance Use Topics Alcohol use: Not Currently Drug use: Never REVIEW OF SYSTEMS Abdomen: No abdominal pain, nausea, vomiting, diarrhea, or constipation. No bloating, early satiety, indigestion, or increased flatulence. Bladder: No dysuria, gross hematuria, urinary frequency, urinary urgency, or incontinence. Breast: No breast lumps, nipple d/c, overlying skin changes, redness or skin retraction. Allergies and current medication updated:Yes SENSITIVE EXAM: The sensitive examination was discussed with the Patient or Patient's Authorized Biochemist. As applicable, any other physician, advance practice provider, medical student, or other health professional student that will be observing or involved in the sensitive examination for educational or training purposes was discussed with the Patient or Authorized Biochemist. The Patient or Authorized Biochemist has agreed to proceed with the sensitive examination. (Sensitive examination includes inspection and/or palpation of the breasts, pelvis, prostate and anorectal regions). EXAM: BP 124/78 Ht 5' 3 (1.60m) Wt 196 lb (88.9kg) LMP 02/10/2025 BMI 34.73 kg/(m2). GENERAL: pleasant, female in no apparent distress HEENT: Normocephalic, atraumatic, mucus membranes moist, and no lesions NECK: Supple, full range of motion, no adenopathy, and thyroid normal DERMATOLOGY: Normal, without lesions, non-icteric, and non-hirsute BREAST: soft, non-tender, symmetric, no dominant mass, normal nipple-areolar complex, no lymphadenopathy, and no nipple discharge CHEST: Normal inspiratory effort ABDOMEN: soft, non-tender, and no masses PELVIC: external genitalia normal, normal Bartholin's glands, urethra, Sayner's glands, no vulvar lesions, no cervical lesions, good vaginal support, normal appearing perineal body and perianal region, moderate amount of yellow thin discharge. BIMANUAL: uterus normal size, shape and consistency, no adnexal masses, and non-tender RECTOVAGINAL: deferred. NEURO: alert and oriented x3,exam grossly non-focal EXTREMITIES: normal ASSESSMENT/PLAN: (Z01.419) Encounter for gynecological examination (general) (routine) without abnormal findings (primary encounter diagnosis) (N89.8) Vaginal discharge (Z11.3) Screen for STD (sexually transmitted disease) (Z12.4) Screening for cervical cancer (Z11. (more content not included)...[facility]09-08-2025 Note* Addendum Note - Danna Ramirez APRN.CNP - 01/15/2025 3:20 PM EDTAddended by: DANNA RAMIREZ on: 01/15/2025 03:20 PM Modules accepted: Orders [facility]09-08-2025 Miscellaneous Notes* Addendum Note - Danna Ramirez APRN.CNP - 01/15/2025 3:20 PM EDTAddended by: DNANA RAMIREZ on: 01/15/2025 03:20 PM Modules accepted: Orders documented in this encounterOhio[facility]-29-20[facility] Instructions* Patient Instructions* Danna Ramirez APRN.CNP - 01/05/2025 1:41 PM EDT Get your blood work on the way out today Recheck urine on Wednesday Take your antibiotic until gone documented in this encounterOhio[facility]08-29-2025 History of Present illness Narrative* Danna Ramirez APRN.[place] - 01/05/2025 1:20 PM EDT This is a 34 year old female who presents today with: Follow up with urinary symptoms, urgent care follow up HPI from urgent care visit 01/02: Urinary Frequency and Lower Back Pain: - Onset 2 days ago. - Denies , fever, chills, nausea, emesis, or abdominal pain. - Has not taken any medication at home. Follow up: HI Mary, Your urine culture has returned and is negative for bacterial growth. You can stop taking the antibiotic. Follow up with your PCP related to the blood noted in your urine during your exam. HISTORY OF PRESENT ILLNESS: UTI: - Recent UTI with symptoms of back pain and increased urinary frequency, now resolved although somecontinued back pain - Mild dysuria, no longer present. - Mary feels she is emptying her bladder completely. - Currently on antibiotics, with the last dose scheduled for tomorrow. - No history of UTIs. - No fevers, myalgia, chills Crohn's Disease: - Currently on infusions - immunotherapy - Mary is uncertain about the effectiveness of the medication. - Scheduled to see Dr. Alcaraz next month for further evaluation. - Recent labs from November not available in the current system. - Mary reports occasional hematochezia, unsure if related to menstruation or hemorrhoids or her crohns Menstrual Irregularities: - Irregular menstrual cycles since tubal ligation. - Variability in flow, with some months heavy and others light spotting. - Last menstrual period approximately one week before the onset of UTI symptoms. Vitamin D Deficiency: - History of vitamin D deficiency, previously on supplementation stating they told her to take the high dose two pills and then she never took any more - Mary is not currently taking vitamin D supplements. Prior iron deficiency with supplementation, no longer taking Some anxiety over having a UTI, new infusion med, concerned with health PAST MEDICAL HISTORY: PAST MEDICAL HISTORY Diagnosis Date Anemia Asthma (HCC) Crohn's disease (HCC) Impaired fasting glucose 09/2014 Miscarriage (HCC) Unspecified asthma(493.90) PAST SURGICAL HISTORY Procedure Laterality Date CHOLECYSTECTOMY HX 2016 COLONOSCOPY 07/23/2021 EGD 07/23/2021 INSERTION OF IUD 06/11/2009 Mirena IUD REMOVAL (CERAMIC TILE SETTER DEPT)_*FL 02/2010 NEXPLANON INSERTION 03/19/2014,10/2015 left arm NEXPLANON REMOVAL 04/08/2017 PAST SURGICAL HISTORY OF Left 12/29/2017 ORIF medial and lateral malleolus of trimalleolar ankle fracture; Dr. Jeri Ramesh REPAIR UMBILICAL HERNIA 01/15/2022 SALPINGECTOMY Bilateral 01/15/2022 laparoscopic TYMPANOSTOMY LOCAL/TOPICAL ANESTHESIA ALLERGIES Morphine and Sudafed [Pseudoephedrine Hcl] MEDICATIONS Current Outpatient Medications Medication Sig nitrofurantoin monohydrate and macrocrystal (MACROBID) 100 mg capsule Take 1 capsule by mouth two times a day for 5 days. albuterol (PROVENTIL) 2.5 mg /3 mL (0.083 %) nebulizer solution Use 3 mL via nebulizer every 4 hours as needed for wheezing/shortness of breath. benzonatate (TESSALON PERLE) 100 mg capsule Take 1 capsule by mouth three times a day as needed. Nebulizer and Compressor For Neb 1 Each as needed. albuterol HFA (PROVENTIL HFA, VENTOLIN HFA) 90 mcg/actuation inhaler Inhale 2 Puffs as instructed every 4 hours as needed for wheezing/shortness of breath. dicyclomine (BENTYL) 10 mg capsule Take 1 capsule by mouth three times daily as needed (for abdominal pain). budesonide, enteric coated (ENTOCORT EC) 3 mg 24 hr capsule take 3 capsules by mouth once daily for30 DAYS, THEN DECREASE TO... (REFER TO PRESCRIPTION NOTES). vedolizumab (ENTYVIO) 300 mg injection Inject 300 mg intravenously one time only for [address] Alcaraz's office administers and manages for her crohns, tapering up dosing and intermittent infusions No current facility-administered medications for this visit. FAMILY HISTORY Problem Relation Age of Onset [...] Diabetes Paternal Grandmother Asthma Son Asthma Son SOCIAL HISTORY[1] REVIEW OF SYSTEMS See HPI EXAM: BP 116/68 (BP Site: Right Arm, BP Position: Sitting, BP Cuff Size: Large Adult) Pulse 100 Temp 36.9 C (98.4 F) Wt 88.9 kg (196 lb) LMP 11/02/2024 (Approximate) SpO2 97% BMI 34.73 kg/m PHYSICAL EXAM: General Appearance: Well appearing, alert, in no acute distress, well-hydrated, well nourished.. Skin: Skin color, texture, turgor normal, no suspicious rashes or lesions. Back:no costovertebral tenderness but shows muscle ache more so over the right lower back Lungs: Lungs clear to auscultation. No wheezing, rhonchi, rales.. Heart: RRR without murmur, gallop, or rubs. No ectopy. .ASSESSMENT/PLAN: 1. Other microscopic hematuria - ICD9: 599.72, ICD10: R31.29 (primary diagnosis) 2. Urine leukocytes - ICD9: 791.7, ICD10: R82.998 - trace blood noted in urgent care and todays urine dip - finish rest of the antibiotics - UA DIP, URINE (POC) - COMPLETE BLOOD COUNT AND DIFFERENTIAL - URINALYSIS, WITH MICROSCOPIC recheck Wednesday at least 2 days after antibiotic completion - BACTERIAL CULTURE, URINE 3. Crohn's disease with complication, unspecified gastrointestinal tract location (HCC) - ICD9: 555.9, ICD10: K50.919 - continue following with Dr Friend on treatment - COMPLETE BLOOD COUNT AND DIFFERENTIAL - IRON AND TIBC - ENTYVIO 300 MG INTRAVENOUS SOLUTION 4. Other iron deficiency anemia - ICD9: 280.8, ICD10: D50.8\ - COMPLETE BLOOD COUNT AND DIFFERENTIAL - IRON AND TIBC - stopped supplements 5. Vitamin D deficiency - ICD9: 268.9, ICD10: E55.9 - stopped supplements - VITAMIN D 25 HYDROXY 6. Obesity, Class I, BMI 30-34.9 - ICD9: 278.00, ICD10: E66.811 Stable Discussed treatment plan and patient voices understanding. Patient's questions answered appropriately. Medications and potential side effects were discussed and patient voices understanding. Return to the office as scheduled or as needed for worsening/no improvement. Danna Ramirez APRN.RECORDING ARTIST Recording using [employer] software for draft documentation of the visit was discussed with the patient/authorized shared services representative; all questions welcomed and answered. Patient/authorized shared services representative agreed to proceed [1] Social History Tobacco Use Smoking status: Never Smokeless tobacco: Never Vaping Use Vaping status: Never Used Substance Use Topics Alcohol use: Not Currently Drug use: Never documented in this encounterOhio[facility] NoteHNO ID: [id number] Author: DANNA RAMIREZ APRN.RECORDING ARTIST Service: ? Author Type: Nurse Practitioner Type: Progress Notes Filed: 01/05/2025 14:05 Note Text: This is a 34 year old female who presents today with: Follow up with urinary symptoms, urgent care follow up HPI from urgent care visit 01/02: Urinary Frequency and Lower Back Pain: - Onset 2 days ago. - Denies , fever, chills, nausea, emesis, or abdominal pain. - Has not taken any medication at home. Follow up: DAYTON Hernandez, Your urine culture has returned and is negative for bacterial growth. You can stop taking the antibiotic. Follow up with your PCP related to the blood noted in your urine during your exam. HISTORY OF PRESENT ILLNESS: UTI: - Recent UTI with symptoms of back pain and increased urinary frequency, now resolved although some continued back pain - Mild dysuria, no longer present. - Mary feels she is emptying her bladder completely. - Currently on antibiotics, with the last dose scheduled for tomorrow. - No history of UTIs. - No fevers, myalgia, chills Crohn's Disease: - Currently on infusions - immunotherapy - Mary is uncertain about the effectiveness of the medication. - Scheduled to see Dr. Alcaraz next month for further evaluation. - Recent labs from November not available in the current system. - Mary reports occasional hematochezia, unsure if related to menstruation or hemorrhoids or her crohns Menstrual Irregularities: - Irregular menstrual cycles since tubal ligation. - Variability in flow, with some months heavy and others light spotting. - Last menstrual period approximately one week before the onset of UTI symptoms. Vitamin D Deficiency: - History of vitamin D deficiency, previously on supplementation stating they told her to take the high dose two pills and then she never took any more - Mary is not currently taking vitamin D supplements. Prior iron deficiency with supplementation, no longer taking Some anxiety over having a UTI, new infusion med, concerned with health PAST MEDICAL HISTORY: PAST MEDICAL HISTORY Diagnosis Date Anemia Asthma (HCC) Crohn's disease (HCC) Impaired fasting glucose 09/2014 Miscarriage (HCC) Unspecified asthma(493.90) PAST SURGICAL HISTORY Procedure Laterality Date CHOLECYSTECTOMY HX 2015 COLONOSCOPY 07/23/2021 EGD 07/23/2021 INSERTION OF IUD 06/11/2009 Mirena IUD REMOVAL (CERAMIC TILE SETTER DEPT)_*[place] 02/2010 NEXPLANON INSERTION 03/19/2014,10/2015 left arm NEXPLANON REMOVAL 04/08/2017 PAST SURGICAL HISTORY OF Left 12/29/2017 ORIF medial and lateral malleolus of trimalleolar ankle fracture; Dr. Jeri Ramesh REPAIR UMBILICAL HERNIA 01/15/2022 SALPINGECTOMY Bilateral 01/15/2022 laparoscopic TYMPANOSTOMY LOCAL/TOPICAL ANESTHESIA ALLERGIES Morphine and Sudafed [Pseudoephedrine Hcl] MEDICATIONS Current Outpatient Medications Medication Sig nitrofurantoin monohydrate and macrocrystal (MACROBID) 100 mg capsule Take 1 capsule by mouth two times a day for 5 days. albuterol (PROVENTIL) 2.5 mg /3 mL (0.083 %) nebulizer solution Use 3 mL via nebulizer every 4 hours as needed for wheezing/shortness of breath. benzonatate (TESSALON PERLE) 100 mg capsule Take 1 capsule by mouth three times a day as needed. Nebulizer and Compressor For Neb 1 Each as needed. albuterol HFA (PROVENTIL HFA, VENTOLIN HFA) 90 mcg/actuation inhaler Inhale 2 Puffs as instructed every 4 hours as needed for wheezing/shortness of breath. dicyclomine (BENTYL) 10 mg capsule Take 1 capsule by mouth three times daily as needed (for abdominal pain). budesonide, enteric coated (ENTOCORT EC) 3 mg 24 hr capsule take 3 capsules by mouth once daily for 30 DAYS, THEN DECREASE TO... (REFER TO PRESCRIPTION NOTES). vedolizumab (ENTYVIO) 300 mg injection Inject 300 mg intravenously one time only for [address] Alcaraz's office administers and manages for her crohns, tapering up dosing and intermittent infusions No current facility-administered medications for this visit. FAMILY HISTORY Problem Relation Age of Onset [...] Diabetes Paternal Grandmother Asthma Son Asthma Son SOCIAL HISTORY[1] REVIEW OF SYSTEMS See HPI EXAM: BP 116/68 (BP Site: Right Arm, BP Position: Sitting, BP Cuff Size: Large Adult) Pulse 100 Temp 36.9 ?C (98.4 ?F) Wt 88.9 kg (196 lb) LMP 11/02/2024 (Approximate) SpO2 97% BMI 34.73 kg/m? PHYSICAL EXAM: General Appearance: Well appearing, alert, in no acute distress, well-hy (more content not included)...[facility] Instructions* Patient Instructions* Lexie Byers APRN.RECORDING ARTIST - 01/02/2025 2:47 PM EDT 1. Urinary frequency (R35.0) 2. Urinary tract infection with hematuria, site unspecified (N39.0) - Acute onset of urinary frequency and lower back pain for 2 days; urine dipstick in office showed trace blood and small leukocytes. - Likely UTI. - Prescription for antibiotic sent to pharmacy. - Urine sent to lab for culture to determine bacterial cause of infection. - Instructed patient to continue taking the prescribed medication unless otherwise notified by the office. - Start the antibiotic prescribed today; your prescription has been sent to the pharmacy. - A urine culture was sent to the lab to identify the bacteria causing your infection. - Continue taking the antibiotic as directed and finish the full course unless you hear different instructions from our office. documented in this encounterOhio[facility]08-26-2025 NoteHNO ID: [id number] Author: LEXIE BYERS APRN.CL[place] Service: ? Author Type: Nurse Practitioner Type: Progress Notes Filed: 01/02/2025 14:47 Note Text: [facility] Guillen is a 34 year old female. Patient presents with: Urinary Frequency: Frequency and lower back pain x 2 days HPI The patient is a 34-year-old female presenting with urinary frequency and lower back pain. Urinary Frequency and Lower Back Pain: - Onset 2 days ago. - Denies , fever, chills, nausea, emesis, or abdominal pain. - Has not taken any medication at home. Review of Systems Constitutional: (-) fever, (-) chills Gastrointestinal: (-) nausea, (-) vomiting, (-) abdominal pain Genitourinary: (+) urinary frequency Musculoskeletal: (+) lower back pain Objective BP 112/76 Pulse 82 Temp 36.6 ?C (97.9 ?F) (Tympanic) Resp 16 Wt 89.4 kg (197 lb 1.5 oz) LMP 11/02/2024 (Approximate) SpO2 98% BMI 34.92 kg/m? PAST MEDICAL HISTORY Diagnosis Date - Anemia - Asthma (HCC) - Crohn's disease (HCC) - Impaired fasting glucose 09/2014 - Miscarriage (HCC) - Unspecified asthma(493.90) PAST SURGICAL HISTORY Procedure Laterality Date - CHOLECYSTECTOMY HX 2015 - COLONOSCOPY 07/23/2021 - EGD 07/23/2021 - INSERTION OF IUD 06/11/2009 Mirena - IUD REMOVAL (CERAMIC TILE SETTER DEPT)_*FL 02/2010 - NEXPLANON INSERTION 03/19/2014,10/2015 left arm - NEXPLANON REMOVAL 04/08/2017 - PAST SURGICAL HISTORY OF Left 12/29/2017 ORIF medial and lateral malleolus of trimalleolar ankle fracture; Dr. Jeri Ramesh - REPAIR UMBILICAL HERNIA 01/15/2022 - SALPINGECTOMY Bilateral 01/15/2022 laparoscopic - TYMPANOSTOMY LOCAL/TOPICAL ANESTHESIA ALLERGIES Morphine and Sudafed [Pseudoephedrine Hcl] MEDICATIONS - cholecalciferol, vitamin D3, 10 mcg (400 unit) cap Take 400 Units by mouth once daily. - albuterol (PROVENTIL) 2.5 mg /3 mL (0.083 %) nebulizer solution Use 3 mL via nebulizer every 4 hours as needed for wheezing/shortness of breath. - STELARA 90 mg/mL injection 90 mg every 8 weeks. - albuterol HFA (PROAIR HFA) 90 mcg/actuation inhaler Inhale 2 Puffs as instructed every 6 hours as needed. - dicyclomine (BENTYL) 10 mg capsule Take 1 capsule by mouth three times daily as needed (for abdominal pain). - SLOW RELEASE IRON 142 mg (45 mg iron) TbER Take 45 mg by mouth twice daily with meals. - nitrofurantoin monohydrate and macrocrystal (MACROBID) 100 mg capsule Take 1 capsule by mouth two times a day for 5 days. - benzonatate (TESSALON PERLE) 100 mg capsule Take 1 capsule by mouth three times a day as needed. (Patient not taking: Reported on 11/21/2024) - Nebulizer and Compressor For Neb 1 Each as needed. (Patient not taking: Reported on 11/21/2024) - albuterol HFA (PROVENTIL HFA, VENTOLIN HFA) 90 mcg/actuation inhaler Inhale 2 Puffs as instructed every 4 hours as needed for wheezing/shortness of breath. (Patient not taking: Reported on 11/21/2024) - Mesalamine (PENTASA) 500 mg CR capsule Take 2 capsules by mouth four times daily. (Patient not taking: Reported on 11/21/2024) - budesonide, enteric coated (ENTOCORT EC) 3 mg 24 hr capsule take 3 capsules by mouth once daily for 30 DAYS, THEN DECREASE TO... (REFER TO PRESCRIPTION NOTES). (Patient not taking: Reported on 11/21/2024) - albuterol HFA (PROVENTIL HFA, VENTOLIN HFA) 90 mcg/actuation inhaler Inhale 2 Puffs as instructed every 2 hours as needed for wheezing/shortness of breath. (Patient not taking: Reported on 11/21/2024) FAMILY HISTORY Problem Relation Age of Onset - No Known Problems Mother - No Known Problems Father - No Known Problems Sister - No Known Problems Sister - No Known Problems Sister - No Known Problems Sister - No Known Problems Brother - No Known Problems Brother - No Known Problems Brother - No Known Problems Brother - Cancer Maternal Grandmother liver and lung - Dementia Maternal Grandfather - COPD Maternal Grandfather - Hyperlipidemia Maternal Grandfather - Ulcerative Colitis Maternal Grandfather - Diabetes Paternal Grandmother - Asthma Son - Asthma Son SOCIAL HISTORY[1] Physical Exam Vitals and nursing note reviewed. Constitutional: General: She is not in acute distress. Appearance: Normal appearance. She is not ill-appearing. Cardiovascular: Rate and Rhythm: Normal rate and regular rhythm. Heart sounds: Normal heart sounds. Pulmonary: Effort: Pulmonary effort is normal. No respiratory distress. Breath sounds: Normal breath sounds. No wheezing or rales. Abdominal: General: There is no distension. Palpations: Abdomen is soft. There is no mass. Tenderness: There is no abdominal tenderness. There is no right CVA tenderness, left CVA tenderness or guarding. Skin: General: Skin is warm and dry. Neurological: Mental Status: She is alert. { 1. Urinary frequency (R35.0) 2. Urinary tract infection with hematuria, site unspecified (N39.0) (more content not included)...[facility]08-[facility] History of Present illness Narrative* Lexie Byers APRN.RECORDING ARTIST - 01/02/2025 2:46 PM EDT [facility] Nikia Marylaura Guillen is a 34 year old female. Patient presents with: Urinary Frequency: Frequency and lower back pain x 2 days HPI The patient is a 34-year-old female presenting with urinary frequency and lower back pain. Urinary Frequency and Lower Back Pain: - Onset 2 days ago. - Denies , fever, chills, nausea, emesis, or abdominal pain. - Has not taken any medication at home. Review of Systems Constitutional: (-) fever, (-) chills Gastrointestinal: (-) nausea, (-) vomiting, (-) abdominal pain Genitourinary: (+) urinary frequency Musculoskeletal: (+) lower back pain Objective BP 112/76 Pulse 82 Temp 36.6 C (97.9 F) (Tympanic) Resp 16 Wt 89.4 kg (197 lb 1.5 oz) LMP11/02/2024 (Approximate) SpO2 98% BMI 34.92 kg/m PAST MEDICAL HISTORY Diagnosis Date Anemia Asthma (HCC) Crohn's disease (HCC) Impaired fasting glucose 09/2014 Miscarriage (HCC) Unspecified asthma(493.90) PAST SURGICAL HISTORY Procedure Laterality Date CHOLECYSTECTOMY HX 2016 COLONOSCOPY 07/23/2021 EGD 07/23/2021 INSERTION OF IUD 06/11/2009 Mirena IUD REMOVAL (CERAMIC TILE SETTER DEPT)_*FL 02/2010 NEXPLANON INSERTION 03/19/2014,10/2015 left arm NEXPLANON REMOVAL 04/08/2017 PAST SURGICAL HISTORY OF Left 12/29/2017 ORIF medial and lateral malleolus of trimalleolar ankle fracture; Dr. Jeri Ramesh REPAIR UMBILICAL HERNIA 01/15/2022 SALPINGECTOMY Bilateral 01/15/2022 laparoscopic TYMPANOSTOMY LOCAL/TOPICAL ANESTHESIA ALLERGIES Morphine and Sudafed [Pseudoephedrine Hcl] MEDICATIONS cholecalciferol, vitamin D3, 10 mcg (400 unit) cap Take 400 Units by mouth once daily. albuterol (PROVENTIL) 2.5 mg /3 mL (0.083 %) nebulizer solution Use 3 mL via nebulizer every 4 hours as needed for wheezing/shortness of breath. STELARA 90 mg/mL injection 90 mg every 8 weeks. albuterol HFA (PROAIR HFA) 90 mcg/actuation inhaler Inhale 2 Puffs as instructed every 6 hours as needed. dicyclomine (BENTYL) 10 mg capsule Take 1 capsule by mouth three times daily as needed (for abdominal pain). SLOW RELEASE IRON 142 mg (45 mg iron) TbER Take 45 mg by mouth twice daily with meals. nitrofurantoin monohydrate and macrocrystal (MACROBID) 100 mg capsule Take 1 capsule by mouth two times a day for 5 days. benzonatate (TESSALON PERLE) 100 mg capsule Take 1 capsule by mouth three times a day as needed. (Patient not taking: Reported on 11/21/2024) Nebulizer and Compressor For Neb 1 Each as needed. (Patient not taking: Reported on 11/21/2024) albuterol HFA (PROVENTIL HFA, VENTOLIN HFA) 90 mcg/actuation inhaler Inhale 2 Puffs as instructed every 4 hours as needed for wheezing/shortness of breath. (Patient not taking: Reported on 11/21/2024) Mesalamine (PENTASA) 500 mg CR capsule Take 2 capsules by mouth four times daily. (Patient not taking: Reported on 11/21/2024) budesonide, enteric coated (ENTOCORT EC) 3 mg 24 hr capsule take 3 capsules by mouth once daily for30 DAYS, THEN DECREASE TO... (REFER TO PRESCRIPTION NOTES). (Patient not taking: Reported on 11/21/2024) albuterol HFA (PROVENTIL HFA, VENTOLIN HFA) 90 mcg/actuation inhaler Inhale 2 Puffs as instructed every 2 hours as needed for wheezing/shortness of breath. (Patient not taking: Reported on 11/21/2024) FAMILY HISTORY Problem Relation Age of Onset [...] Diabetes Paternal Grandmother Asthma Son Asthma Son SOCIAL HISTORY[1] Physical Exam Vitals and nursing note reviewed. Constitutional: General: She is not in acute distress. Appearance: Normal appearance. She is not ill-appearing. Cardiovascular: Rate and Rhythm: Normal rate and regular rhythm. Heart sounds: Normal heart sounds. Pulmonary: Effort: Pulmonary effort is normal. No respiratory distress. Breath sounds: Normal breath sounds. No wheezing or rales. Abdominal: General: There is no distension. Palpations: Abdomen is soft. There is no mass. Tenderness: There is no abdominal tenderness. There is no right CVA tenderness, left CVA tendernessor guarding. Skin: General: Skin is warm and dry. Neurological: Mental Status: She is alert. { 1. Urinary frequency (R35.0) 2. Urinary tract infection with hematuria, site unspecified (N39.0) - Acute onset of urinary frequency and lower back pain for 2 days; urine dipstick in office showed trace blood and small leukocytes. - Likely UTI. - Prescription for antibiotic sent to pharmacy. - Urine sent to lab for culture to determine bacterial cause of infection. - Instructed patient to continue taking the prescribed medication unless otherwise notified by the office. - Follow-up with your PCP in 3-5 days if symptoms have not improved or sooner if symptoms worsen - Discussed red flags and need for immediate medical evaluation if any occur. - Discussed supportive care treatment with fluids, rest and analgesia. - Discussed expected course of illness Lexie Byers APRN.RECORDING ARTIST and Recording using [employer] software for draft documentation of the visit was discussed with thepatient/authorized shared services representative; all questions welcomed and answered. Patient/authorized shared services representative agreed to proceed History and Record Review External record(s) reviewed: prior labs/imaging. Findings from review of prior labs/imaging: Previous Renal Function Panel Reviewed 07/10/2024: BUN 8; Creatinine 0.73; Estimated Glomerular Filtration Rate 111 Disposition The patient was discharged. Procedures [1] Social History Tobacco Use Smoking status: Never Smokeless tobacco: Never Vaping Use Vaping status: Never Used Substance Use Topics Alcohol use: Not Currently Drug use: Never documented in this encounterOhio[facility]07-15-2025 Instructions* Patient Instructions* Ravinder Miranda MD - 11/21/2024 3:17 PM EDT RETURN HERE IF ANY CONCERNS documented in this encounterOhiohealth [facility]07-15-2025 NoteHNO ID: [id number] Author: RAVINDER MIRANDA MD Service: ? Author Type: Physician Type: Progress Notes Filed: 11/21/2024 15:18 Note Text: [facility] Guillen is a 34 year old female. Patient presents with: Knee Pain: Left knee pain, in patella area, no injury noted, x 2 weeks Swelling some and warmth in area Pt here with 2 week hx of left patellar area pain off and on now pain worse and localized to anterior tib area and lower patellar area feels there may be some warmth no injury no limits to rOM Review of Systems Constitutional: Negative for chills, fatigue and fever. Musculoskeletal: Positive for arthralgias and myalgias. Negative for joint swelling. Skin: Negative for rash and wound. Neurological: Negative for weakness and numbness. Objective BP 102/76 Pulse 80 Temp 37 ?C (98.6 ?F) Resp 18 Wt 89 kg (196 lb 3.4 oz) LMP 11/02/2024 (Approximate) SpO2 96% BMI 34.77 kg/m? Physical Exam Vitals and nursing note reviewed. Constitutional: Appearance: Normal appearance. She is not ill-appearing. Cardiovascular: Pulses: Normal pulses. Musculoskeletal: General: Tenderness present. No swelling or deformity. Normal range of motion. Right lower leg: No edema. Left lower leg: No edema. Comments: No swelling identified in knee ROM ok Skin: Capillary Refill: Capillary refill takes less than 2 seconds. Findings: No erythema or rash. Comments: Minimal to no warmth inarea compared to right knee no redness Neurological: Mental Status: She is alert and oriented to person, place, and time. Cranial Nerves: No cranial nerve deficit. Sensory: No sensory deficit. Coordination: Coordination normal. Deep Tendon Reflexes: Reflexes normal. {ASSESSMENT/PLAN: 1. Acute pain of left knee - ICD9: 719.46, ICD10: M25.562 Due to pt concern will treat for a superficial skin infection and also with nsaids If any worse will go to the ED - XR KNEE LIMITED 2V AP/LAT LEFT Ravinder Miranda MD Differential Diagnoses - skin infection is more likely for the following reason(s): suggested by HANDP - knee sprain is less likely for the following reason(s): HANDP not suggestive and no evidence on imaging Disposition The patient was discharged. [facility] History of Present illness Narrative* Ravinder Miranda MD - 11/21/2024 2:51 PM EDT [facility] Guillen is a 34 year old female. Patient presents with: Knee Pain: Left knee pain, in patella area, no injury noted, x 2 weeks Swelling some and warmth in area Pt here with 2 week hx of left patellar area pain off and on now pain worse and localized to anterior tib area and lower patellar area feels there may be some warmth no injury no limits to rOM Review of Systems Constitutional: Negative for chills, fatigue and fever. Musculoskeletal: Positive for arthralgias and myalgias. Negative for joint swelling. Skin: Negative for rash and wound. Neurological: Negative for weakness and numbness. Objective BP 102/76 Pulse 80 Temp 37 C (98.6 F) Resp 18 Wt 89 kg (196 lb 3.4 oz) LMP 11/02/2024 (Approximate) SpO2 96% BMI 34.77 kg/m Physical Exam Vitals and nursing note reviewed. Constitutional: Appearance: Normal appearance. She is not ill-appearing. Cardiovascular: Pulses: Normal pulses. Musculoskeletal: General: Tenderness present. No swelling or deformity. Normal range of motion. Right lower leg: No edema. Left lower leg: No edema. Comments: No swelling identified in knee ROM ok Skin: Capillary Refill: Capillary refill takes less than 2 seconds. Findings: No erythema or rash. Comments: Minimal to no warmth inarea compared to right knee no redness Neurological: Mental Status: She is alert and oriented to person, place, and time. Cranial Nerves: No cranial nerve deficit. Sensory: No sensory deficit. Coordination: Coordination normal. Deep Tendon Reflexes: Reflexes normal. {ASSESSMENT/PLAN: 1. Acute pain of left knee - ICD9: 719.46, ICD10: M25.562 Due to pt concern will treat for a superficial skin infection and also with nsaids If any worse will go to the ED - XR KNEE LIMITED 2V AP/LAT LEFT Ravinder Miranda MD Differential Diagnoses - skin infection is more likely for the following reason(s): suggested by H&P - knee sprain is less likely for the following reason(s): H&P not suggestive and no evidence onimaging Disposition The patient was discharged. Procedures documented in this encounterOhio[facility]25 History of Present illness Narrative* Willam Moreira, RT(R) - 11/21/2024 2:50 PM EDT Radiology Service Progress Note PATIENT NAME: Mary Guillen DATE OF SERVICE: November 21, 2024 TIME: 3:03 PM PATIENT IDENTITY VERIFICATION COMPLETED USING TWO (2) IDENTIFIERS: Name and Date of confirmedby patient verbally. FALL SCREENING: Has the patient had 2 falls in the last year or 1 fall with injury or currently using an Ambulatory Assistive Device (Walker, Cane, Wheelchair, Crutches, etc.)? No PATIENT GENDER DATA: Assigned female at . status: : No status:NO. PATIENT RELEVANT IMPLANT DATA REVIEWED: Yes PATIENT PRESENTS WITH AN IMPLANTABLE OR ATTACHED NURSE DISCHARGE: No RADIOLOGY DEPARTMENT: General X-ray: Exam(s) Completed: Lower Extremity X- Ray(s): Knee, AP / LAT Left PERIPHERAL IV DATA: Not applicable SIGNED BY: RT Mack(R) November 21, 2024 3:03 PM documented in this encounterOhiohealth [facility]07-15-2025 NoteHNO ID: [id number] Author: WILLAM MOREIRA RT(R) Service: ? Author Type: [employer] Type: Progress Notes Filed: 11/21/2024 15:04 Note Text: Radiology Service Progress Note PATIENT NAME: Mary Guillen DATE OF SERVICE: November 21, 2024 TIME: 3:03 PM PATIENT IDENTITY VERIFICATION COMPLETED USING TWO (2) IDENTIFIERS: Name and Date of confirmed by patient verbally. FALL SCREENING: Has the patient had 2 falls in the last year or 1 fall with injury or currently using an Ambulatory Assistive Device (Walker, Cane, Wheelchair, Crutches, etc.)? No PATIENT GENDER DATA: Assigned female at . status: : No status: NO. PATIENT RELEVANT IMPLANT DATA REVIEWED: Yes PATIENT PRESENTS WITH AN IMPLANTABLE OR ATTACHED NURSE DISCHARGE: No RADIOLOGY DEPARTMENT: General X-ray: Exam(s) Completed: Lower Extremity X-Ray(s): Knee, AP / LAT Left PERIPHERAL IV DATA: Not applicable SIGNED BY: RT Mack(R) November 21, 2024 3:03 [facility]05-11-2025 Radiology Diagnostic study note [facility] Imaging Services [address] [place] [address] [id number] Abdomen/Pelvis WITH Contrast MR#: [id number] Acct: [id number] Name: NATHANIEL GUILLENSCILLA CHARLY Rep #: [id number] : 1990 F 34 From: Yehuda Stapleton MD PCP: Dr. Drake Whiting DO Status: RE G CLI Study:Abdomen/Pelvis WITH Contrast Date of Ex am: 09/14/24 Exam# [id number] Ordering Dr: Ronald Alcaraz DO PROCEDURE: ABDOMEN/PELVIS WITH CONTRAST 09/15/2024 REASON FOR EXAM: CROHN'S DISEASE AND ABD PAIN TECHNIQUE: Abdomen and pelvis CT with intravenous contrast. Coronal and Sagittal reconstruction series were provided. One or more dose reduction techniques were used (e.g., Automated exposure control, adjustment of the mA and/or kV according to patient size, use of iterative reconstruction technique. RADIATION DOSE SUMMARY: CTDlvol: mGy DLP: mGycm COMPARISON: 04-16-2023 FINDINGS: Average sized liver showing homogenous parenchymal attenuation Prominent extra-hepatic biliary tracts. Cholecystectomy. Normal appearance of the pancreas with clear surrounding fat planes. The spleen, adrenal glands, aorta and IVC are unremarkable. Both kidneys are of average size and showing smooth outline with preserved parenchymal thickness. No renal calculi. No hydronephrosis. Under distension of the urinary bladder showing uniform mural thickening with noobvious masses. No obvious masses related to the pelvic viscera. The appendix appears unremarkable. No right iliac inflammatory changes. Colonic diverticulosis. No diverticulitis. The small bowel loops are unremarkable. The stomach is unremarkable. Small fat containing umbilical hernia No ascites or free air. No obvious pathologically enlarged lymph nodes. Scanned osseous structures show no osseous destruction. Scanned lung bases show no obvious abnormalities. CT/Abdomen/Pelvis WITH Contrast IMPRESSION: Stable study findings as detailed. No acute pelvi-abdominal abnormalities, collections or free air. OVERALL FINAL ASSESSMENT: . LI-RADS is not meant to be used in patients <18 years or patients with cirrhosisdue to congenital hepatic fibrosis or due to vascular disorders, because these patients have a lower chance of developing HCC. Reading Location: [id number] CC: Dr. Drake Whiting DO; Rey Alcaraz DO ~ Scientologist: Signed [facility]04-28-2025 Evaluation note* Diagnosis Onset Date Resolution Status Admit Date Crohn's disease acute Malaika 28t h, 2025 1:45pm Dysphagia acute September 04 1:45pm [facility] Work Phone: [phone] 393-369601-24-2025 Telephone encounter Note* Telephone Encounter - Monae Ashley LPN - 06/02/2024 9:06 AM EST Pt called to report prescription for Nebulizer Solution was sent tot he wrong pharmacy. This needs to go to [facility]. Please resubmit to the correct pharmacy. Monae Ashley LPN [facility]01-24-[facility] Miscellaneous Notes* Telephone Encounter - Monae Ashley LPN - 06/02/2024 9:06 AM EST Pt called to report prescription for Nebulizer Solution was sent tot he wrong pharmacy. This needs to go to [facility]. Please resubmit to the correct pharmacy. Monae Ashley LPN documented in this encounterOhiohealth [facility]01-23-2025 NoteHNO ID: [id number] Author: TOÑITO JOHNSON APRN.[facility] Service: ? Author Type: Nurse Practitioner Type: Progress Notes Filed: 06/01/2024 14:53 Note Text: Chief Complaint Patient presents with: Yearly Exam: URI sx, cough, congestion x 4 days, was seen in [facility] and prescribed prednisone HPI Mary Guillen is a 33 year old female who presents here today for Above Complaints.. Here for her yearly physical. Denies CP, SOB, palpitations, new or persistent h/a, difficulty swallowing, n/v/d, increased thirst or urination. Has been sick for about 4 days, was seen in [facility] 2 days ago, dx with viral UTI, given steroid taper. Overall just doesn't feel well. Frequent persistent nonproductive cough. No fevers. +some nasal congestion. Past medical history, appointments, medications, allergies reviewed. Previous Medical History PAST MEDICAL HISTORY Diagnosis Date Anemia Asthma Crohn's disease (HCC) Impaired fasting glucose 09/2014 Miscarriage Unspecified asthma(493.90) Previous Surgical History PAST SURGICAL HISTORY Procedure Laterality Date CHOLECYSTECTOMY HX 2016 COLONOSCOPY 07/23/2021 EGD 07/23/2021 INSERTION OF IUD 06/11/2009 Mirena IUD REMOVAL (CERAMIC TILE SETTER DEPT)_*FL 02/2010 NEXPLANON INSERTION 03/19/2014,10/2015 left arm NEXPLANON REMOVAL 04/08/2017 PAST SURGICAL HISTORY OF Left 12/29/2017 ORIF medial and lateral malleolus of trimalleolar ankle fracture; Dr. Jeri Ramesh REPAIR UMBILICAL HERNIA 01/15/2022 SALPINGECTOMY Bilateral [...] on File Prior to Visit Medication Sig predniSONE (DELTASONE) 10 mg tablet Take 4 tabs daily for 3 days, then 2 tabs daily for 3 days, then 1 tab daily for 3 days with food. albuterol HFA (PROVENTIL HFA, VENTOLIN HFA) 90 mcg/actuation inhaler Inhale 2 Puffs as instructed every 4 hours as needed for wheezing/shortness of breath. albuterol HFA (PROAIR HFA) 90 mcg/actuation inhaler Inhale 2 Puffs as instructed every 6 hours as needed. dicyclomine (BENTYL) 10 mg capsule Take 1 capsule by mouth three times daily as needed (for abdominal pain). budesonide, enteric coated (ENTOCORT EC) 3 mg 24 hr capsule take 3 capsules by mouth once daily for 30 DAYS, THEN DECREASE TO... (REFER TO PRESCRIPTION NOTES). SLOW RELEASE IRON 142 mg (45 mg iron) TbER Take 45 mg by mouth twice daily with meals. albuterol HFA (PROVENTIL HFA, VENTOLIN HFA) 90 mcg/actuation inhaler Inhale 2 Puffs as instructed every 2 hours as needed for wheezing/shortness of breath. STELARA 90 mg/mL injection 90 mg every 8 weeks. Mesalamine (PENTASA) 500 mg CR capsule Take 2 capsules by mouth four times daily. No current facility-administered medications on file prior to visit. Social History Social History Tobacco Use Smoking status: Never Smokeless tobacco: Never Vaping Use Vaping status: Never Used Substance Use Topics Alcohol use: Not Currently Drug use: Never Review of Symptoms REVIEW OF SYSTEMS See HPI, otherwise negaitve EXAM: BP 118/82 (BP Site: Left Arm, BP Position: Sitting, BP Cuff Size: Regular Adult) Pulse 92 Temp 36.7 ?C (98 ?F) Ht 160 cm (5' 2.99) Wt 87.4 kg (192 lb 10.9 oz) LMP 02/02/2024 (Exact Date) SpO2 96% BMI 34.14 kg/m? General Appearance: ill-appearing, alert, in no acute distress, well-hydrated, well nourished.. Skin: Skin color, texture, turgor normal, no suspicious rashes or lesions. Head: Normocephalic, no masses, lesions, tenderness or abnormalities. Eyes: watery Ears: External ears normal, canals clear. Nose/Sinuses: Nares normal, septum midline, mucosa normal, no drainage or sinus tenderness. Oropharynx: Lips, mucosa, and tongue normal, teeth and gums normal, oropharynx normal. Neck: Supple, no adenopathy; thyroid symmetric, normal size, no bruits. Back:no pain to palpation of vertebrae, good flexion and extension, good range of motion, no muscle tenderness, motor and sensory appear to be normal Lungs: Lungs clear to auscultation. No wheezing, rhonchi, rales.. Heart: RRR without murmur, gallop, or rubs. No ectopy. Abdomen: Normal abdominal exam, Abdomen soft, non-ten (more content not included)...[facility]01-23-2025 History of Present illness Narrative* Toñito Johnson APRN.RECORDING ARTIST - 06/01/2024 2:12 PM EST Chief Complaint Patient presents with: Yearly Exam: URI sx, cough, congestion x 4 days, was seen in [facility] and prescribed prednisone HPI Mary Guillen is a 33 year old female who presents here today for Above Complaints.. Here for her yearly physical. Denies CP, SOB, palpitations, new or persistent h/a, difficulty swallowing, n/v/d, increased thirst or urination. Has been sick for about 4 days, was seen in [facility] 2 days ago, dx with viral UTI, given steroid taper. Overall just doesn't feel well. Frequent persistent nonproductive cough. No fevers. +some nasal congestion. Past medical history, appointments, medications, allergies reviewed. Previous Medical History PAST MEDICAL HISTORY Diagnosis Date Anemia Asthma Crohn's disease (HCC) Impaired fasting glucose 09/2014 Miscarriage Unspecified asthma(493.90) Previous Surgical History PAST SURGICAL HISTORY Procedure Laterality Date CHOLECYSTECTOMY HX 2015 COLONOSCOPY 07/23/2021 EGD 07/23/2021 INSERTION OF IUD 06/11/2009 Mirena IUD REMOVAL (CERAMIC TILE SETTER DEPT)_*FL 02/2010 NEXPLANON INSERTION 03/19/2014,10/2015 left arm NEXPLANON REMOVAL 04/08/2017 PAST SURGICAL HISTORY OF Left 12/29/2017 ORIF medial and lateral malleolus of trimalleolar ankle fracture; Dr. Jeri Ramesh REPAIR UMBILICAL HERNIA 01/15/2022 SALPINGECTOMY Bilateral [...] on File Prior to Visit Medication Sig predniSONE (DELTASONE) 10 mg tablet Take 4 tabs daily for 3 days, then 2 tabs daily for 3 days, then 1 tab daily for 3 days with food. albuterol HFA (PROVENTIL HFA, VENTOLIN HFA) 90 mcg/actuation inhaler Inhale 2 Puffs as instructed every 4 hours as needed for wheezing/shortness of breath. albuterol HFA (PROAIR HFA) 90 mcg/actuation inhaler Inhale 2 Puffs as instructed every 6 hours as needed. dicyclomine (BENTYL) 10 mg capsule Take 1 capsule by mouth three times daily as needed (for abdominal pain). budesonide, enteric coated (ENTOCORT EC) 3 mg 24 hr capsule take 3 capsules by mouth once daily for30 DAYS, THEN DECREASE TO... (REFER TO PRESCRIPTION NOTES). SLOW RELEASE IRON 142 mg (45 mg iron) TbER Take 45 mg by mouth twice daily with meals. albuterol HFA (PROVENTIL HFA, VENTOLIN HFA) 90 mcg/actuation inhaler Inhale 2 Puffs as instructed every 2 hours as needed for wheezing/shortness of breath. STELARA 90 mg/mL injection 90 mg every 8 weeks. Mesalamine (PENTASA) 500 mg CR capsule Take 2 capsules by mouth four times daily. No current facility-administered medications on file prior to visit. Social History Social History Tobacco Use Smoking status: Never Smokeless tobacco: Never Vaping Use Vaping status: Never Used Substance Use Topics Alcohol use: Not Currently Drug use: Never Review of Symptoms REVIEW OF SYSTEMS See HPI, otherwise negaitve EXAM: BP 118/82 (BP Site: Left Arm, BP Position: Sitting, BP Cuff Size: Regular Adult) Pulse 92 Temp 36.7 C (98 F) Ht 160 cm (5' 2.99) Wt 87.4 kg (192 lb 10.9 oz) LMP 02/02/2024 (Exact Date) SpO2 96% BMI 34.14 kg/m General Appearance: ill-appearing, alert, in no acute distress, well-hydrated, well nourished.. Skin: Skin color, texture, turgor normal, no suspicious rashes or lesions. Head: Normocephalic, no masses, lesions, tenderness or abnormalities. Eyes: watery Ears: External ears normal, canals clear. Nose/Sinuses: Nares normal, septum midline, mucosa normal, no drainage or sinus tenderness. Oropharynx: Lips, mucosa, and tongue normal, teeth and gums normal, oropharynx normal. Neck: Supple, no adenopathy; thyroid symmetric, normal size, no bruits. Back:no pain to palpation of vertebrae, good flexion and extension, good range of motion, no muscletenderness, motor and sensory appear to be normal Lungs: Lungs clear to auscultation. No wheezing, rhonchi, rales.. Heart: RRR without murmur, gallop, or rubs. No ectopy. Abdomen: Normal abdominal exam, Abdomen soft, non-tender. Bowel sounds normal. No masses, organomegaly. Extremities: No deformities, edema, skin discoloration, clubbing or cyanosis. Good capillary refill. . Musculoskeletal: No joint swelling, deformity, or tenderness. Peripheral Pulses: Normal. Neurologic: Gait normal. Reflexes normal and symmetric. Sensation grossly intact.. Lymph Nodes: No cervical lymphadenopathy and No supraclavicular lymphadenopathy. Psychiatric: pleasant, cooperative. Health Maintenance List Depression Screening Never done Anxiety Screening Never done Shingrix Vaccine(1 of 2) Never done Cervical Cancer Screening due on 05/08/2022 Influenza Vaccine(1) due on 11/06/2024 Covid-19 Vaccine(2 - [place] risk series) due on 06/01/2025 DTaP,Tdap,Td Vaccine(11 - Td or Tdap) due on 03/16/2027 Hepatitis B Vaccine Completed HPV Vaccine Completed Hepatitis C Screening Completed Pneumococcal Vaccine Completed HIV Screening Discontinued Data reviewed Previous records, office notes, PDMP report PDMP website checked and validated. All prescriptions have been APPROPRIATELY filled. No suspiciousactivity was identified. 06/01/2024 by Toñito Johnson CNP. ASSESSMENT/PLAN: 1. Wellness examination - ICD9: V70.0, ICD10: Z00.00 (primary diagnosis) - Counseled on healthy diet and regular exercise - COMPLETE BLOOD COUNT - COMPREHENSIVE METABOLIC PANEL - HEMOGLOBIN A1C - LIPID PANEL BASIC - VITAMIN D 25 HYDROXY - VITAMIN B12 - IRON AND TIBC - FERRITIN - THYROID STIMULATING HORMONE 2. Screening for depression - ICD9: V79.0, ICD10: Z13.31 - DEPRESSION SCREENING 3. Encounter for screening examination for other mental health and behavioral disorders - ICD9: V79.8, ICD10: Z13.39 - ANXIETY SCREENING 4. Iron deficiency anemia, unspecified iron deficiency anemia type - ICD9: 280.9, ICD10: D50.9 - COMPLETE BLOOD COUNT - IRON AND TIBC - FERRITIN 5. URI, acute - ICD9: 465.9, ICD10: J06.9 - BENZONATATE 100 MG CAPSULE - NEBULIZER AND COMPRESSOR - ALBUTEROL SULFATE 2.5 MG/3 ML (0.083 %) SOLUTION FOR NEBULIZATION - CODEINE 10 MG-GUAIFENESIN 100 MG/5 ML ORAL LIQUID 6. Persistent cough - ICD9: 786.2, ICD10: R05.3 - BENZONATATE 100 MG CAPSULE - NEBULIZER AND COMPRESSOR - ALBUTEROL SULFATE 2.5 MG/3 ML (0.083 %) SOLUTION FOR NEBULIZATION - CODEINE 10 MG-GUAIFENESIN 100 MG/5 ML ORAL LIQUID 7. Screening for diabetes mellitus - ICD9: V77.1, ICD10: Z13.1 - COMPREHENSIVE METABOLIC PANEL - HEMOGLOBIN A1C 8. Screening for lipid disorders - ICD9: V77.91, ICD10: Z13.220 - LIPID PANEL BASIC 9. Screening for thyroid disorder - ICD9: V77.0, ICD10: Z13.29 - THYROID STIMULATING HORMONE 10. Encounter for vitamin deficiency screening - ICD9: V77.99, ICD10: Z13.21 - VITAMIN D 25 HYDROXY - VITAMIN B12 Toñito Johnson APRN.RECORDING ARTIST documented in this encounterOhio[facility]01-21-2025 History of Present illness Narrative* Elva Han, RT(R) - 05/30/2024 12:20 PM EST Radiology Service Progress Note PATIENT NAME: Mary Guillen DATE OF SERVICE: May 30, 2024 TIME: 12:02 PM PATIENT IDENTITY VERIFICATION COMPLETED USING TWO (2) IDENTIFIERS: Name and Date of confirmedby patient verbally. FALL SCREENING: Has the patient had 2 falls in the last year or 1 fall with injury or currently using an Ambulatory Assistive Device (Walker, Cane, Wheelchair, Crutches, etc.)? No PATIENT GENDER DATA: Assigned female at . status: : No status:NO. PATIENT RELEVANT IMPLANT DATA REVIEWED: Not Applicable PATIENT PRESENTS WITH AN IMPLANTABLE OR ATTACHED NURSE DISCHARGE: No RADIOLOGY DEPARTMENT: General X-ray: Exam(s) Completed: Chest X-Ray PERIPHERAL IV DATA: Not applicable SIGNED BY: RT Raegan(R) May 30, 2024 12:02 PM documented in this encounterOhiohealth [facility]01-21-2025 NoteHNO ID: [id number] Author: ELVA HAN RT(R) Service: Radiology Author Type: Technologist Type: Progress Notes Filed: 05/30/2024 12:11 Note Text: Radiology Service Progress Note PATIENT NAME: Mary Guillen DATE OF SERVICE: May 30, 2024 TIME: 12:02 PM PATIENT IDENTITY VERIFICATION COMPLETED USING TWO (2) IDENTIFIERS: Name and Date of confirmed by patient verbally. FALL SCREENING: Has the patient had 2 falls in the last year or 1 fall with injury or currently using an Ambulatory Assistive Device (Walker, Cane, Wheelchair, Crutches, etc.)? No PATIENT GENDER DATA: Assigned female at . status: : No status: NO. PATIENT RELEVANT IMPLANT DATA REVIEWED: Not Applicable PATIENT PRESENTS WITH AN IMPLANTABLE OR ATTACHED NURSE DISCHARGE: No RADIOLOGY DEPARTMENT: General X-ray: Exam(s) Completed: Chest X-Ray PERIPHERAL IV DATA: Not applicable SIGNED BY: RT Raegan(R) May 30, 2024 12:02 [facility]01-21-2025 NoteHNO ID: [id number] Author: DEVYI WILLOUGHBY APRN.RECORDING ARTIST Service: ? Author Type: Nurse Practitioner Type: Progress Notes Filed: 05/30/2024 13:52 Note Text: Subjective HPI HPI Mary Guillen is a 33 year old female who presents today for CC of cough, st. This started 3 days ago. Has tried otc medication for relief. Symptoms are worsened by nothign. Risk factors sick exposures. Hx of asthma. Nonsmoker. Denies possibility of being . .Patient presents with: Cough: sore throat x 3 days PAST MEDICAL HISTORY Diagnosis Date Anemia Asthma Crohn's disease (HCC) Impaired fasting glucose 09/2014 Miscarriage Unspecified asthma(493.90) PAST SURGICAL HISTORY Procedure Laterality Date CHOLECYSTECTOMY HX 2016 COLONOSCOPY 07/23/2021 EGD 07/23/2021 INSERTION OF IUD 06/11/2009 Mirena IUD REMOVAL (CERAMIC TILE SETTER DEPT)_*FL 02/2010 NEXPLANON INSERTION 03/19/2014,10/2015 left arm NEXPLANON REMOVAL 04/08/2017 PAST SURGICAL HISTORY OF Left 12/29/2017 ORIF medial and lateral malleolus of trimalleolar ankle fracture; Dr. Jeri Ramesh REPAIR UMBILICAL HERNIA 01/15/2022 SALPINGECTOMY Bilateral 01/15/2022 laparoscopic TYMPANOSTOMY LOCAL/TOPICAL ANESTHESIA ALLERGIES Morphine and Sudafed [Pseudoephedrine Hcl] MEDICATIONS STELARA 90 mg/mL injection 90 mg every 8 weeks. albuterol HFA (PROAIR HFA) 90 mcg/actuation inhaler Inhale 2 Puffs as instructed every 6 hours as needed. Mesalamine (PENTASA) 500 mg CR capsule Take [...] mg by mouth twice daily with meals. albuterol HFA (PROVENTIL HFA, VENTOLIN HFA) 90 [...] Never Smokeless tobacco: Never Vaping Use Vaping status: Never Used Substance Use Topics Alcohol use: Not Currently Drug use: Never Review of Systems Constitutional: Negative for fever. HENT: Positive for congestion and sore throat. Negative for ear pain and nosebleeds. Respiratory: Positive for cough. Negative for shortness of breath and wheezing. Musculoskeletal: Negative for neck pain. Objective Physical Exam Constitutional: General: She is not in acute distress. Appearance: She is not toxic-appearing or diaphoretic. HENT: Head: Normocephalic and atraumatic. Mouth/Throat: Mouth: Mucous membranes are moist. Pharynx: Uvula midline. Posterior oropharyngeal erythema present. Cardiovascular: Rate and Rhythm: Normal rate and regular rhythm. Heart sounds: Normal heart sounds, S1 normal and S2 normal. Pulmonary: Effort: Pulmonary effort is normal. Breath sounds: Normal breath sounds. Comments: Harsh dry cough during exam. Lymphadenopathy: Cervical: No cervical adenopathy. Right cervical: No superficial cervical adenopathy. Left cervical: No superficial cervical adenopathy. Neurological: Mental Status: She is alert and oriented to person, place, and time. Gait: Gait is intact. ASSESSMENT/PLAN: 1. URI, acute - ICD9: 465.9, ICD10: J06.9 (primary diagnosis) - Discussed viral etiology and rationale for treatment. - Symptomatic treatment with prn analgesia - Supportive care with fluids and rest - Follow up in 3-5 days if symptoms persist or sooner if worsening of symptoms - PREDNISONE 10 MG TABLET - ALBUTEROL SULFATE HFA 90 MCG/ACTUATION AEROSOL INHALER 2. Sore throat - ICD9: 462, ICD10: J02.9 negative - STREP A MOLECULAR (POC) Strep negative. 3. Acute cough - ICD9: 786.2, ICD10: R05.1 - XR CHEST 2V FRONTAL/LAT IMPRESSION: No acute radiographic abnormality. Dictated by : MD Deyvi CAMPOS APRN.[facility]01-21-2025 History of Present illness Narrative* Deyvi Willoughby APRN.[facility] - 05/30/2024 11:55 AM EST Subjective HPI HPI Mary Guillen is a 33 year old female who presents today for CC of cough, st. This started 3 days ago. Has tried otc medication for relief. Symptoms are worsened by nothign. Risk factors sick exposures. Hx of asthma. Nonsmoker. Denies possibility of being . .Patient presents with: Cough: sore throat x 3 days PAST MEDICAL HISTORY Diagnosis Date Anemia Asthma Crohn's disease (HCC) Impaired fasting glucose 09/2014 Miscarriage Unspecified asthma(493.90) PAST SURGICAL HISTORY Procedure Laterality Date CHOLECYSTECTOMY HX 2016 COLONOSCOPY 07/23/2021 EGD 07/23/2021 INSERTION OF IUD 06/11/2009 Mirena IUD REMOVAL (CERAMIC TILE SETTER DEPT)_*FL 02/2010 NEXPLANON INSERTION 03/19/2014,10/2015 left arm NEXPLANON REMOVAL 04/08/2017 PAST SURGICAL HISTORY OF Left 12/29/2017 ORIF medial and lateral malleolus of trimalleolar ankle fracture; Dr. Jeri Ramesh REPAIR UMBILICAL HERNIA 01/15/2022 SALPINGECTOMY Bilateral 01/15/2022 laparoscopic TYMPANOSTOMY LOCAL/TOPICAL ANESTHESIA ALLERGIES Morphine and Sudafed [Pseudoephedrine Hcl] MEDICATIONS STELARA 90 mg/mL injection 90 mg every 8 weeks. albuterol HFA (PROAIR HFA) 90 mcg/actuation inhaler Inhale 2 Puffs as instructed every 6 hours as needed. Mesalamine (PENTASA) 500 mg CR capsule Take 2 capsules by mouth four times daily. dicyclomine (BENTYL) 10 mg capsule Take 1 capsule by mouth three times daily as needed (for abdominal pain). budesonide, enteric coated (ENTOCORT EC) 3 mg 24 hr capsule take 3 capsules by mouth once daily for30 DAYS, THEN DECREASE TO... (REFER TO PRESCRIPTION NOTES). SLOW RELEASE IRON 142 mg (45 mg iron) TbER Take 45 mg by mouth twice daily with meals. albuterol HFA (PROVENTIL HFA, VENTOLIN HFA) 90 [...] Never Smokeless tobacco: Never Vaping Use Vaping status: Never Used Substance Use Topics Alcohol use: Not Currently Drug use: Never Review of Systems Constitutional: Negative for fever. HENT: Positive for congestion and sore throat. Negative for ear pain and nosebleeds. Respiratory: Positive for cough. Negative for shortness of breath and wheezing. Musculoskeletal: Negative for neck pain. Objective Physical Exam Constitutional: General: She is not in acute distress. Appearance: She is not toxic-appearing or diaphoretic. HENT: Head: Normocephalic and atraumatic. Mouth/Throat: Mouth: Mucous membranes are moist. Pharynx: Uvula midline. Posterior oropharyngeal erythema present. Cardiovascular: Rate and Rhythm: Normal rate and regular rhythm. Heart sounds: Normal heart sounds, S1 normal and S2 normal. Pulmonary: Effort: Pulmonary effort is normal. Breath sounds: Normal breath sounds. Comments: Harsh dry cough during exam. Lymphadenopathy: Cervical: No cervical adenopathy. Right cervical: No superficial cervical adenopathy. Left cervical: No superficial cervical adenopathy. Neurological: Mental Status: She is alert and oriented to person, place, and time. Gait: Gait is intact. ASSESSMENT/PLAN: 1. URI, acute - ICD9: 465.9, ICD10: J06.9 (primary diagnosis) - Discussed viral etiology and rationale for treatment. - Symptomatic treatment with prn analgesia - Supportive care with fluids and rest - Follow up in 3-5 days if symptoms persist or sooner if worsening of symptoms - PREDNISONE 10 MG TABLET - ALBUTEROL SULFATE HFA 90 MCG/ACTUATION AEROSOL INHALER 2. Sore throat - ICD9: 462, ICD10: J02.9 negative - STREP A MOLECULAR (POC) Strep negative. 3. Acute cough - ICD9: 786.2, ICD10: R05.1 - XR CHEST 2V FRONTAL/LAT IMPRESSION: No acute radiographic abnormality. Dictated by : MD Deyvi CAMPOS APRN.RECORDING ARTIST documented in this encounterOhiohealth Nelsonville Health Center11-25-2024 [facility] Medical Records Department [address] [place] [id number] History Physical Exam 04/03/24 0647 MR#: [id number] Acct: [id number] Name: MARY GUILLEN Rep #: [id number] : 1990 33 From: Rey Friend DO PCP: Dr. Drake Whiting, DO Status:[facility] Location: [place] [address] History and Physical Date of Admission: 04/03/24 MARY GUILLEN, is a 33 F who presents to the office today for follow up. [facility] established for management of Crohn???s disease. LV 12.03.21 indicates???Pentasa QID and entocort taper???started with improvement of bowel irregularity.???Start Remicade infusions???following biochemical and tubal ligation 01.15.22?EGD and colonoscopy 07.23.21???records requested from [facility]. OV indicates stricture.?CT enterography 08.15.21???mild circumferential hyperenhancement of TI with narrowing of distal TI, caliber 6mm? 09.26.22/02.01.23 requested egd/colon and gi records??? OV 02.22.23 Pt previously seeing GI in [place]. Would like to establish here due to distance. moderately controlled with Remicaide, Pentasa and as needed Dicyclomine. Still has some abdominal pain and diarrhea. Adjusting diet does help. Sx get worse leading up to next infusion. OV 08.20.23 Pt reports minimal symptoms or concerns. Pt is taking dicyclomine, Stelara, Vitamin D, and sucralfate. Pt states that she has small amount of blood in her stool, maybe once a week, if she has to strain. OV 02.28.24 pt reports that she is feeling well overall and denies GI symptoms of concern at this time. Pt reports 2-3 bm per day; reports occasional blood in her stool due to straining. Continues with suppositories, budesonide, and Stelara, last injection was 01.18.24. ESR / CRP Calp / Lact Serum / AB 11.24.23 7 / 13.4 -- / -- 0.7 / neg ROS Const Constitutional: No fatigue, fever(s) or weight change ENT ENT: No difficulty swallowing Gastro GI: No abdominal pain, belching, bloating, change in bowel habits, change in stool character, coffee ground emesis, constipation, cramping, diarrhea, heartburn, difficulty swallowing, feeling full early, excessive flatus, incontinent of stools, Vomiting blood/hematemesis, Blood in stool, loose stools, Black,tarry stools, nausea/dyspepsia, pain with swallowing, vomiting or other Musc Musculoskeletal: No joint pain Skin Skin: No yellowing of the eye or itchy eyes Psych Psychiatric: No anxiety and No depression Endo Endocrine: No fatigue or weight change Aller/Imm Allergy/Immunologic: No itchy eyes Estevan/Lymp Hematologic/Lymphatic: No easy bleeding or easy bruising Exam Const General: cooperative, healthy appearing, uncomfortable and no acute distress Nutritional Appearance: well nourished Orientation: alert, awake and oriented x3 HENMT Head: normal to inspection Ears: hearing grossly normal bilaterally, external ears normal, TM's normal bilaterally and EAC's normal Nose: external nose normal, nares normal, septum normal and nasal discharge clear Face and sinus: normal facial exam, sinuses nontender and face symmetric Mouth: oral mucosae normal, lip normal, tongue normal and oropharynx normal Throat: posterior oropharynx normal, tonsils normal, uvula midline and no postnasal drainage Eyes General: appearance normal, both eyes and all related structures Neck Neck: normal visual inspection, full ROM, no lymphadenopathy, no meningeal signs and supple Neck mass: No Thyroid: thyroid normal Lymphatic: no lymphadenopathy noted Chest Chest palpation inspection: normal inspection of the chest Resp Effort Inspection: normal respiratory effort, able to speak in complete sentences, symmetric chest movement and cough Quality of cough: dry (Nonproductive in office today) Auscultation: Bilateral: Clear to Auscultation Cardio Palpation: normal PMI Rate: tachycardic Rhythm: regular rhythm Heart Sounds: S1 normal, S2 normal, no gallops, no murmurs and no rubs Pulses: radial pulses present GI Inspection: normal to inspection Palpation: soft and no hepatosplenomegaly Skin General: no rashes or lesions noted Neuro General: patient alert, patient awake, patient oriented x3 and gait normal Cognition: normal cognition Speech: speech normal Gait: normal gait Motor: muscle tone normal throughout Sensory Exam: no sensory deficits noted Psych Appearance: grossly normal Mental Status: mental status grossly normal Mood: congruent mood Affect: normal affect Speech and Movement: speech and movement normal Attitude: cooperative Thought Process: normal Thought Content: normal Judgment: judgment good Assessment and Plan Assessment and Plan (1) Crohn's disease: Status: Acute Qualifiers: Gastrointestinal tract location: small and large intestine Dig (more content not included)...[facility]10-08-2024 History of Present illness Narrative* Deyvi Willoughby APRN.RECORDING ARTIST - 02/15/2024 10:30 AM EDT Subjective HPI HPI Mary Guillen is a 33 year old female who presents today for CC of cough, congestion, earpain, st. This started 1 day ago. Has tried otc medication for relief. Symptoms are worsened by nothing. Risk factors sick exposures at school/work. Denies possibility of being . Hx of asthma. .Patient presents with: Ear Pain: left ear and left side of throat x last night PAST MEDICAL HISTORY Diagnosis Date Anemia Asthma Crohn's disease (HCC) Impaired fasting glucose 09/2014 Miscarriage Unspecified asthma(493.90) PAST SURGICAL HISTORY Procedure Laterality Date CHOLECYSTECTOMY HX 2016 COLONOSCOPY 07/23/2021 EGD 07/23/2021 INSERTION OF IUD 06/11/2009 Mirena IUD REMOVAL (CERAMIC TILE SETTER DEPT)_*FL 02/2010 NEXPLANON INSERTION 03/19/2014,10/2015 left arm NEXPLANON REMOVAL 04/08/2017 PAST SURGICAL HISTORY OF Left 12/29/2017 ORIF medial and lateral malleolus of trimalleolar ankle fracture; Dr. Jeri Ramesh REPAIR UMBILICAL HERNIA 01/15/2022 SALPINGECTOMY Bilateral 01/15/2022 laparoscopic TYMPANOSTOMY LOCAL/TOPICAL ANESTHESIA ALLERGIES Morphine and Sudafed [Pseudoephedrine Hcl] MEDICATIONS metroNIDAZOLE (FLAGYL) 500 mg tablet Take 1 tablet by mouth two times a day for 7 days. STELARA 90 mg/mL injection 90 mg every 8 weeks. albuterol HFA (PROAIR HFA) 90 mcg/actuation inhaler Inhale 2 Puffs as instructed every 6 hours as needed. Mesalamine (PENTASA) 500 mg CR capsule Take 2 capsules by mouth four times daily. dicyclomine (BENTYL) 10 mg capsule Take 1 capsule by mouth three times daily as needed (for abdominal pain). budesonide, enteric coated (ENTOCORT EC) 3 mg 24 hr capsule take 3 capsules by mouth once daily for30 DAYS, THEN DECREASE TO... (REFER TO PRESCRIPTION NOTES). SLOW RELEASE IRON 142 mg (45 mg iron) TbER Take 45 mg by mouth twice daily with meals. albuterol HFA (PROVENTIL HFA, VENTOLIN HFA) 90 [...] Never Smokeless tobacco: Never Vaping Use Vaping status: Never Used Substance Use Topics Alcohol use: Not Currently Drug use: Never Review of Systems Constitutional: Negative for fever. HENT: Positive for congestion, ear pain and sore throat. Negative for nosebleeds. Respiratory: Positive for cough. Negative for shortness of breath and wheezing. Musculoskeletal: Negative for neck pain. Objective Blood pressure 122/70, pulse 102, temperature 36.8 C (98.3 F), resp. rate 16, weight 86.8 kg (191 lb 5.8 oz), last menstrual period 02/02/2024, SpO2 99%. Physical Exam Constitutional: General: She is not in acute distress. Appearance: She is not toxic-appearing or diaphoretic. HENT: Head: Normocephalic and atraumatic. Right Ear: Hearing, tympanic membrane, ear canal and external ear normal. Left Ear: Hearing, tympanic membrane, ear canal and external ear normal. Ears: Comments: Possible perforation of right tm, not clear. Nose: Nose normal. Mouth/Throat: Pharynx: Uvula midline. No pharyngeal swelling, oropharyngeal exudate, posterior oropharyngeal erythema or uvula swelling. Eyes: General: Lids are normal. No scleral icterus. Right eye: No discharge. Left eye: No discharge. Conjunctiva/sclera: Conjunctivae normal. Pupils: Pupils are equal, round, and reactive to light. Neck: Trachea: Trachea normal. Cardiovascular: Rate and Rhythm: Normal rate and regular rhythm. Heart sounds: Normal heart sounds. Pulmonary: Effort: Pulmonary effort is normal. Breath sounds: Normal breath sounds. Musculoskeletal: Cervical back: Normal range of motion and neck supple. Lymphadenopathy: Cervical: No cervical adenopathy. Right cervical: No superficial cervical adenopathy. Left cervical: No superficial cervical adenopathy. Skin: Findings: No rash. Neurological: Mental Status: She is alert and oriented to person, place, and time. ASSESSMENT/PLAN: 1. Sore throat - ICD9: 462, ICD10: J02.9 (primary diagnosis) - suspect viral - Group A strep molecular testing negative - Discussed supportive care treatment with fluids, rest and analgesia. - The patient should follow up in 3-5 days if symptoms persist or worsen - STREP A MOLECULAR (POC) - PREDNISONE 20 MG TABLET 2. Left ear pain - ICD9: 388.70, ICD10: H92.02 -use medication as prescribed -follow up if symptoms persist, worsen, change - PREDNISONE 20 MG TABLET Deyvi Willoughby APRN.CLIFTON documented in this encounterOhiohealth Nelsonville Health Center10-03-2024 History of Present illness Narrative* Angeles Cruz APRN.CNP - 02/10/2024 1:53 PM EDT Automation Qtp Tester offered: Patient declines. Mary is a 33 year old who presents for an annual gynecologic exam without complaints. Menses: cycles every 28-30 days and 4 days of flow. Contraception: salpingectomy HPV vaccine: Yes Last Pap: 05/13/2021 normal HPV: 05/14/2021 negative History of abnormal pap: No Last mammogram: never Sexually active: No Patient concerns for STD exposure: No. Exercise: walking OB History T2 L2 SAB1 IAB0 Ectopic0 Multiple0 Live Births2 Research Scholar History LMP: 04/15/2020 (Exact Date), Injection Age at Menarche: Age at First : Age at Menopause: Research Scholar History Comments: Sexual Activity: Yes; Male Contraception: None PAST MEDICAL HISTORY Diagnosis Date Anemia Asthma Impaired fasting glucose 09/2014 Miscarriage Unspecified asthma(493.90) PAST SURGICAL HISTORY Procedure Laterality Date CHOLECYSTECTOMY HX 2016 COLONOSCOPY 07/23/2021 EGD 07/23/2021 INSERTION OF IUD 06/11/2009 Mirena IUD REMOVAL (CERAMIC TILE SETTER DEPT)_*FL 02/2010 NEXPLANON INSERTION 03/19/2014,10/2015 left arm NEXPLANON REMOVAL 04/08/2017 PAST SURGICAL HISTORY OF Left 12/29/2017 ORIF medial and lateral malleolus of trimalleolar ankle fracture; Dr. Jeri Ramesh REPAIR UMBILICAL HERNIA 01/15/2022 SALPINGECTOMY Bilateral 01/15/2022 laparoscopic TYMPANOSTOMY LOCAL/TOPICAL ANESTHESIA FAMILY HISTORY Problem Relation Age of Onset [...] Diabetes Paternal Grandmother Asthma Son Asthma Son SOCIAL HISTORY Social History Tobacco Use Smoking status: Never Smokeless tobacco: Never Vaping Use Vaping status: Never Used Substance Use Topics Alcohol use: No Drug use: No REVIEW OF SYSTEMS Abdomen: No abdominal pain, nausea, vomiting, diarrhea, or constipation. No bloating, early satiety, indigestion, or increased flatulence. Bladder: No dysuria, gross hematuria, urinary frequency, urinary urgency, or incontinence. Breast: No breast lumps, nipple d/c, overlying skin changes, redness or skin retraction. Allergies and current medication updated:Yes SENSITIVE EXAM: The sensitive examination was discussed with the Patient or Patient's Authorized Biochemist. As applicable, any other physician, advance practice provider, medical student, or other health professional student that will be observing or involved in the sensitive examination for educational or training purposes was discussed with the Patient or Authorized Biochemist. The Patient or Authorized Biochemist has agreed to proceed with the sensitive examination. (Sensitive examination includes inspection and/or palpation of the breasts, pelvis, prostate and anorectal regions). EXAM: BP 110/72 Resp 14 Ht 5' 2 (1.58m) Wt 191 lb (86.6kg) LMP 02/02/2024 BMI 34.93 kg/(m^2). GENERAL: pleasant, female in no apparent distress HEENT: Normocephalic, atraumatic, mucus membranes moist, and no lesions NECK: Supple, full range of motion, no adenopathy, and thyroid normal DERMATOLOGY: Normal, without lesions, non-icteric, and non-hirsute BREAST: soft, non-tender, symmetric, no dominant mass, normal nipple-areolar complex, no lymphadenopathy, and no nipple discharge CHEST: Normal inspiratory effort ABDOMEN: soft, non-tender, and no masses PELVIC: external genitalia normal, normal Bartholin's glands, urethra, Sayner's glands, no vulvar lesions, no cervical lesions, good vaginal support, + white discharge, normal appearing perineal body and perianal region BIMANUAL: uterus normal size, shape and consistency, no adnexal masses, and non-tender RECTOVAGINAL: deferred. NEURO: alert and oriented x3,exam grossly non-focal EXTREMITIES: normal ASSESSMENT/PLAN: 1) Health maintenance: Pap/HPV up to date 2020. Deferred until 2025. Nutrition, exercise and routine health maintenance exams reviewed. HPV vaccine: completed series 2) Contraception: salpingectomy 3) STD screening: Declined STD check. 4) Follow up one year or sooner as needed History of gestational diabetes - ICD9: V12.21, ICD10: Z86.32 - HEMOGLOBIN A1C Angeles Cruz APRN.RECORDING ARTIST documented in this encounterOhiohealth Nelsonville [facility] Center05-18-2024 History of Present illness Narrative* Maria Guadalupe Elizondo PA - 09/25/2023 10:08 AM EDT This note was created using NoteWriter. Subjective Mary Guillen is a 33 year old female. HPI 33-year-old female presents for sore throat. Patient states she has had a sore throat for the past several days. She is still able to eat and drink. She has a little bit of a cough and runny nose. No fevers. No vomiting or diarrhea. No sick contacts that she is aware of. No other complaint. PAST MEDICAL HISTORY Diagnosis Date Anemia Asthma Impaired fasting glucose 09/2014 Miscarriage Unspecified asthma(493.90) PAST SURGICAL HISTORY Procedure Laterality Date CHOLECYSTECTOMY HX 2016 COLONOSCOPY 07/23/2021 EGD 07/23/2021 INSERTION OF IUD 06/11/2009 Mirena IUD REMOVAL (CERAMIC TILE SETTER DEPT)_*FL 02/2010 NEXPLANON INSERTION 03/19/2014,10/2015 left arm NEXPLANON REMOVAL 04/08/2017 PAST SURGICAL HISTORY OF Left 12/29/2017 ORIF medial and lateral malleolus of trimalleolar ankle fracture; Dr. Jeri Ramesh REPAIR UMBILICAL HERNIA 01/15/2022 SALPINGECTOMY Bilateral 01/15/2022 laparoscopic TYMPANOSTOMY LOCAL/TOPICAL ANESTHESIA ALLERGIES Morphine and Sudafed [Pseudoephedrine Hcl] MEDICATIONS STELARA 90 mg/mL injection albuterol HFA (PROAIR HFA) 90 mcg/actuation inhaler Inhale 2 Puffs as instructed every 6 hours as needed. Cholecalciferol, Vitamin D3, 125 mcg (5,000 unit) [...] take 3 capsules by mouth once daily for30 DAYS, THEN DECREASE TO... (REFER TO PRESCRIPTION [...] hours as needed for wheezing/shortness of breath. benzonatate (TESSALON PERLES) 100 mg capsule Take 1 capsule by mouth three times a day as needed for cough. (Patient not taking: Reported on 09/25/2023) FAMILY HISTORY Problem Relation Age of Onset [...] Topics Alcohol use: No Drug use: No Review of Systems Constitutional: Negative for chills and fever. HENT: Positive for rhinorrhea and sore throat. Negative for congestion and ear pain. Respiratory: Positive for cough. Negative for shortness of breath. Cardiovascular: Negative for chest pain. Gastrointestinal: Negative for diarrhea and vomiting. Objective BP 122/76 Pulse 92 Temp 36.4 C (97.6 F) Resp 16 Wt 84.6 kg (186 lb 8.2 oz) LMP 04/15/2020(Exact Date) SpO2 98% BMI 34.11 kg/m Physical Exam Vitals and nursing note reviewed. Constitutional: General: She is not in acute distress. Appearance: Normal appearance. She is not toxic-appearing. HENT: Right Ear: Tympanic membrane and ear canal normal. Left Ear: Tympanic membrane and ear canal normal. Nose: Nose normal. Mouth/Throat: Mouth: Mucous membranes are moist. Pharynx: Uvula midline. Pharyngeal swelling and posterior oropharyngeal erythema present. No oropharyngeal exudate. Tonsils: No tonsillar exudate or tonsillar abscesses. 2+ on the right. 2+ on the left. Comments: Tonsillar and posterior oropharyngeal erythema and swelling noted. Uvula midline. No tongue or floor of mouth swelling. No ROUTE SERVICE REPRESENTATIVE seen. Eyes: Conjunctiva/sclera: Conjunctivae normal. Cardiovascular: Rate and Rhythm: Normal rate and regular rhythm. Pulmonary: Effort: Pulmonary effort is normal. Breath sounds: Normal breath sounds. No wheezing, rhonchi or rales. Neurological: Mental Status: She is alert. Assessment and Plan ASSESSMENT/PLAN: 1. Sore throat - ICD9: 462, ICD10: J02.9 (primary diagnosis) - suspect viral - Group A strep molecular testing negative - Discussed supportive care treatment with fluids, rest and analgesia. - Contagious dz precautions discussed- including considered contagious until on antibiotics for 24 hours - STREP A MOLECULAR (POC) 2. URI, acute - ICD9: 465.9, ICD10: J06.9 - Discussed viral etiology and rationale for treatment. - Symptomatic treatment with prn analgesia - Supportive care with fluids and rest -Rx for Fatou Bacon Diagnosis and treatment plan were discussed and questions were answered to the patient's satisfaction. Pt acknowledged understanding of concepts and follow up plan. Specific signs and symptoms that would indicate the need for higher level of care were discussed in detail warranting prompt ER evaluation. SHAHID Polk documented in this encounterOhiohealth Nelsonville Health Center04-29-2024 History of Present illness Narrative* Kaylie Merchant PA-C - 09/06/2023 7:02 AM EDT Treatment plan signed. documented in this encounterOhiohealth Nelsonville Health Center12-04-2023 Procedure [facility]12-04-2023 Procedure [facility]11-07-2023 Miscellaneous Notes* Telephone Encounter - Jovanni Palacios MA - 03/16/2023 11:08 AM EST Remicade therapy plan faxed to [facility] office at [phone] documented in this encounterOhiohealth Nelsonville Health Center08-23-2023 Miscellaneous Notes* Telephone Encounter - Magdalena Nuñez APRN.CNP - 12/30/2022 6:37 PM EDT Perfect, continue this regimen then. Thank you, Magdalena Nuñez APRN.CLIFTON * Telephone Encounter - Nida Archuleta LPN - 12/30/2022 4:40 PM EDT Spoke with pt gave information provided. She states was just prescribed vitamin d . Just picked it up last week and started taking. * Telephone Encounter - Nichole Beck Ma - 12/30/2022 10:22 AM EDT Tried calling patient just rang and rang with no voicemail Nichole Beck Ma * Telephone Encounter - Magdalena Nuñez APRN.CNP - 12/30/2022 10:13 AM EDT Please call patient and let her know that lab work results look great!! Continue with current iron supplement. Vitamin D remains low--- See if she is taking her 5000 unit Vitamin D3 supplement daily. If not, restart this regimen routinely. If so, we need to increase this dosage. Keep up the good work! Thank you, Magdalena Nuñez APRN.CNP documented in this encounterOhiohealth Nelsonville Health Center08-16-2023 Nurse Note* Nida Archuleta LPN - 12/23/2022 1:59 PM EDT Pt receives prev jesse 20 in office today as ordered. Pt tolerated well. documented in this encounterOhiohealth Nelsonville Health Center08-16-2023 History of Present illness Narrative* Magdalena Nuñez APRN.CNP - 12/23/2022 1:27 PM EDT Chief Complaint Patient presents with: Physical HPI Mary Guillen is a 32 year old female who presents here today for Above Complaints. Mary is an established patient of Dr. Whiting, and myself. Here for routine physical. No [...] INSERTION OF IUD 06/11/2009 Mirena IUD REMOVAL (CERAMIC TILE SETTER DEPT)_*FL 02/2010 NEXPLANON INSERTION 03/19/2014,10/2015 left arm NEXPLANON REMOVAL 04/08/2017 PAST SURGICAL HISTORY OF Left 12/29/2017 ORIF medial and lateral malleolus of trimalleolar ankle fracture; Dr. Jeri Ramesh REPAIR UMBILICAL HERNIA 01/15/2022 SALPINGECTOMY Bilateral [...] take 3 capsules by mouth once daily for30 DAYS, THEN DECREASE TO... (REFER TO PRESCRIPTION [...] 68 Resp 16 Ht 157.5 cm (5' 2) Wt 86.7 kg (191 lb 1.3 oz) [...] and extension, good range of motion, no muscletenderness, reflexes are 2+ and symmetric, motor and [...] diet of 1000 mg/day for under 50, 1200- 1500 mg/day for 50+ - Discussed need and [...] symptoms occur. Patient agreeable to treatment plan. Magdalena Barroso APRN.CLIFTON [address] [place] [address] documented in this encounterOhiohealth Nelsonville Health Center06-26-2023 Miscellaneous Notes* Telephone Encounter - Zelda Sharp Ma - 11/02/2022 4:14 PM EDT Pt calling for lab results Zelda Sharp Ma documented in this encounterOhiohealth Nelsonville Health Center06-22-2023 Miscellaneous Notes* Telephone Encounter - Jovanni Palacios MA - 10/29/2022 8:47 AM EDT Received a letter from [employer] stating that no prior authorization for Pentasa is needed patient just needs to go to an in network pharmacy. documented in this encounterOhiohealth Nelsonville Health Center06-19-2023 History of Present illness Narrative* Tia Osei PA-C - 10/26/2022 12:23 PM EDT VIRTUAL VISIT FOLLOW UP I have communicated my name and active licensure. The patient's identity and physical location wereverified at the time of this visit. Either the patient or their legal shared services representative has been informed of the risks and benefits of -- and alternatives to -- treatment through a remote evaluation andconsents to proceed with the evaluation remotely. I had a virtual visit with Wilmer today for follow up of Crohns. Dx with Crohn's ileitis w/ stricture via colon 07/2021. Bxs negative for Celiac. Started on Pentasa QID and Entocort with some noticeable improvement in bowel irregularities. Seen by Dr. Valencia for stricture/hernia with no plans for intervention for stricture and recommendations to consider biologic. Started Avsola /2022. UPDATED HISTORY: Feels as though biologic is working very well for her. Bms are daily, decreased frequency/urgency, loose to formed, intermittent anal bleeding during frequent Bms. States she thinks this may be 2/2 her hemorrhoids but is not sure. Denies abd pain, weight loss, joint pains. EGD/Colon 07/2021 FINAL DIAGNOSIS A. Duodenum, biopsy: -Duodenal mucosa with no diagnostic alteration -No evidence of celiac disease B. Cecum, polyp, biopsy: - Tubular adenoma C. Terminal ileum, biopsy: -Chronic active enteritis and ulcer. - See comment. D. Colon, biopsy: -Colonic mucosa with no diagnostic alteration -No evidence of microscopic colitis OV 11/2021 Mary Guillen is a 31 year old female here today for Procedure Follow Up (Colon- IBD, Diarrhea ). Dx with Crohn's ileitis w/ stricture via colon 07/2021. Bxs negative for Celiac. Started on Pentasa QID and Entocort with some noticeable improvement in bowel irregularities. Seen by Dr. Valencia for stricture/hernia with no plans for intervention for stricture and recommendations to consider biologic. Recently had COVID, feeling somewhat better. BMs are 1-7 per day, loose rarely formed, recently small amount of bright rectal bleeding. C. Diff negative 05/2021. Still on Entocort taper. T aking Tylenol PRN for cramping with some relief but finds she is having to take it frequently at higher dosages. CTE 08/15/2021 IMPRESSION: Hyperemia of terminal ileum consistent with distal ileitis. Narrowed distal aspect of the ileum consistent with endoscopic finding of a stricture. Fat-containing umbilical hernia PAST MEDICAL HISTORY Diagnosis Date Anemia Asthma Impaired fasting glucose 09/2014 Miscarriage Unspecified asthma(493.90) PAST SURGICAL HISTORY Procedure Laterality Date CHOLECYSTECTOMY HX 2016 COLONOSCOPY 07/23/2021 EGD 07/23/2021 INSERTION OF IUD 06/11/2009 Mirena IUD REMOVAL (CERAMIC TILE SETTER DEPT)_*FL 02/2010 NEXPLANON INSERTION 03/19/2014,10/2015 left arm NEXPLANON REMOVAL 04/08/2017 PAST SURGICAL HISTORY OF Left 12/29/2017 ORIF medial and lateral malleolus of trimalleolar ankle fracture; Dr. Jeri Ramesh REPAIR UMBILICAL HERNIA 01/15/2022 SALPINGECTOMY Bilateral 01/15/2022 laparoscopic TYMPANOSTOMY LOCAL/TOPICAL ANESTHESIA FAMILY HISTORY Problem Relation Age of Onset [...] Topics Alcohol use: No Drug use: No Current Outpatient Medications Medication Sig Dispense Refill oxyCODONE IR (ROXICODONE) 5 mg immediate release tablet Take 1 tablet by mouth every 8 hours as needed for pain. 5 tablet 0 Mesalamine (PENTASA) 500 mg CR capsule Take 2 capsules by mouth four times daily. 240 capsule 1 budesonide, enteric coated (ENTOCORT EC) 3 mg 24 hr capsule take 3 capsules by mouth once daily for30 DAYS, THEN DECREASE TO... (REFER TO PRESCRIPTION NOTES). dicyclomine (BENTYL) 10 mg capsule Take 1 capsule by mouth three times daily as needed (for abdominal pain). 60 capsule 2 guaiFENesin (MUCINEX) 600 mg 12 hr tablet Take 2 tablets by mouth twice daily. (Patient not taking:Reported on 12/31/2021) 24 tablet 0 SLOW RELEASE IRON 142 mg (45 mg iron) TbER Take 45 mg by mouth twice daily with meals. fluticasone (FLONASE) 50 mcg/actuation nasal spray Use 2 Sprays in each nostril once daily. Rinse mouth after use. 1 Each 1 medroxyPROGESTERone (DEPO-PROVERA) 150 mg/mL inject 1 milliliter intramuscularly for 1 dose 1 mL 3 albuterol HFA (PROVENTIL HFA, VENTOLIN HFA) 90 mcg/actuation inhaler Inhale 2 Puffs as instructed every 2 hours as needed for wheezing/shortness of breath. 8 g 0 Cholecalciferol, Vitamin D3, 125 mcg (5,000 unit) cap Take 1 capsule by mouth once daily. 90 capsule 3 No current facility-administered medications for this visit. ALLERGIES Allergen Reactions Morphine Rash, GI Upset Sudafed [Pseudoephe* Intolerance heart palpations and loopy REVIEW OF SYSTEMS: PAIN ASSESSMENT: Negative for pain, history of chronic pain, or current treatment for a chronic pain condition. GENERAL: No weight loss, malaise or fevers RESPIRATORY: Negative for cough, hemoptysis, wheezing, COPD, dyspnea or shortness of breath CARDIOVASCULAR: Negative for chest pain, leg swelling, hypertension, CHF or palpitations GI: See HPI : No history of dysuria, frequency or incontinence CERAMIC TILE SETTER: Negative for abnormal vaginal bleeding, abnormal vaginal discharge PHYSICAL FINDINGS OF NOTE: General - Normal, healthy, cooperative, in no acute distress Able to interact verbally by video conference Psych - ORIENTATION: normal to time place, person and situation Mood/Affect: AFFECT AND MOOD: Normal Head/Neuro - Normal size and shape Facial appearance normal Pulmonary - respiratory effort normal Cardiovascular - patient describes extremities normal, warm, no cyanosis,no clubbing, and no edema Abdominal - Not performed Skin - abnormal lesions not visualized Motor - patient seen sitting with Normal appearing strength and coordination Anorectal exam - Not Performed Assessment/Plan (K50.018) Crohn's disease of ileum with other complication (HCC) (primary encounter diagnosis) (Z11.59) Encounter for screening for viral disease 1. Crohn's disease of ileum with other complication (HCC) - CBC + DIFF; Future - COMP METABOLIC PANEL; Future - C-REACTIVE PROTEIN (CRP); Future - CALPROTECTIN,FECAL - TSH BLD; Future - Continue Pentasa as prescribed, Bentyl PRN, Avsola q 8 weeks. Pt reports she is noticing significant improvement with infusions - Will check updated yearly labs - Check calprotectin - Due for repeat colon 2023, consider earlier repeat if inflammatory markers are elevated 2. Encounter for screening for viral disease - BLOOD TB SCREEN, INCUBATED; Future - HEP B SURF AG SCRN; Future Follow up in office 3 months/PRN. I spent a total of 15 minutes on the date of the service which included preparing to see the patient, [id number] patient care, completing clinical documentation, obtaining and/or reviewing separately obtained history, performing a medically appropriate examination, counseling and educating the pat ient/family/caregiver, ordering medications, tests, or procedures, communicating with other HCPs (not separately reported), independently interpreting results (not separately reported), communicatingresults to the patient/family/caregiver, and care coordination (not separately reported). Tia Osei PA-C October 26, 2022 12:31 PM documented in this encounterOhiohealth Nelson[facility] Center05-17-2023 Miscellaneous Notes* Telephone Encounter - Nida Archuleta LPN - 09/23/2022 12:13 PM EDT Faxed information requested . Pt notified of such. * Telephone Encounter - Radha Craig PA-C - 09/23/2022 10:51 AM EDT Please fax consult to GI. Thanks Radha Craig PA-C 09/23/2022 * Telephone Encounter - Monae Ashley LPN - 09/23/2022 9:08 AM EDT Pt called and she is seeing GI in [place]. Pt is requesting to see Dr. Alcaraz at [facility]. Pt will continue with Her doctors in [place] because of the Remicade treatments till she can be seen by Dr. Alcaraz.DX crohn's disease Please advise pt when referral has been sent to [facility]. Monae Ashley LPN documented in this encounterOhiohealth Nelsonville [facility] Center02-08-2023 Miscellaneous Notes* Telephone Encounter - Danni Eckert RN - 06/17/2022 3:00 PM EST Patient notified. Danni Eckert RN * Telephone Encounter - Sera Bruner APRN.CNP - 06/17/2022 2:58 PM EST Please advise pt that it can be up to 12-18 months for menses to resume after last dose of Depo-Provera. Sera Bruner APRN.CNP * Telephone Encounter - Danni Eckert RN - 06/17/2022 1:43 PM EST Patient of DM. Had lab bilateral salpingectomy on 01/15/22. Calling because she has not had a menses since before surgery. Prior to surgery she was on depo and had minimal bleeding with that. Last injection was 10/2021. States prior to depo she had regular monthly periods. Should she make f/u appointment? Last saw AG 2020 for annual prior to seeing DM. Please advise. Danni Eckert RN documented in this encounterOhiohealth Nelsonville [facility] Center12-20-2022 Miscellaneous Notes* Telephone Encounter - Kaylie Andrea - 04/28/2022 3:57 PM EST Spoke with patient and rescheduled. Balance of schedule adjusted. Kaylie Andrea * Telephone Encounter - Ekaterina Griffin - 04/28/2022 1:42 PM EST Pt would like to move the 05/05/22 appt. Found out she has to work Wednesday. documented in this encounterOhiohealth Nelsonville [facility] Center10-11-2022 History of Present illness Narrative* Annia Zhang MD - 02/17/2022 3:04 PM EDT SUBJECTIVE: 31 year old female presents for 4 week post-op exam. Has some tenderness but overall doing well. OBJECTIVE: Incision: Healed Abdomen: Soft and Non-tender PLAN: RTO for annual exams and PRN Flu vaccine today I have reviewed and updated past medical and surgical history, medications and allergies. Annia Toledo MD * Annia Zhang MD - 02/17/2022 3:04 PM EDT documented in this encounterOhiohealth Nelsonville [facility] Center09-30-2022 Miscellaneous Notes* Telephone Encounter - Holly Kessler - 02/06/2022 2:36 PM EDT Patient is aware of appointment change. * Telephone Encounter - Ngoc May RN - 02/06/2022 1:48 PM EDT Attempted to call patient to have her come in at 10:30 for treatment on 02/09/2022. Message left with her brother to call us back. Please schedule patient at 10:30 for treatment when she calls back please. documented in this encounterOhiohealth Nelsonville [facility] Center09-16-2022 Miscellaneous Notes* Telephone Encounter - Kaylie Crowe RN - 01/23/2022 2:43 PM EDT Pt has an 1100 appt-will be in after. * Telephone Encounter - Kaylie Crowe RN - 01/23/2022 11:09 AM EDT Left a message with patient requesting she comes in at 10:30 on Wednesday due to being a start Remicade. This infusion can run up to 4 hrs. Please attempt to contact pt again later today to confirm she will be in earlier than scheduled. Thank you. documented in this encounterOhiohealth Nelsonville [facility] Center09-15-2022 Miscellaneous Notes* Telephone Encounter - Aroldo Azevedo - 01/22/2022 4:12 PM EDT 1st time treatment report. The pt is currently being seen for a non oncology regimen. No navigator services needed at this time documented in this encounterOhiohealth Nelsonville [facility] Center09-13-2022 Miscellaneous Notes* Telephone Encounter - Kaylie Andrea - 01/20/2022 3:06 PM EDT Spoke with patient and scheduled first 4 cycles. Patient directed to contact provider's office re: side effects, etc. Kaylie Andrea * Telephone Encounter - Asiya Richey - 01/19/2022 1:43 PM EDT PT is ready to start infusion, per her chron's diagnosis. Please Advise and Assist documented in this encounterOhiohealth Nelsonville [facility] Center09-02-2022 Miscellaneous Notes* Telephone Encounter - Magdalena Barroso APRN.CNP - 01/09/2022 8:22 AM EDT Noted. Thank you, Magdalena Barroso APRN.CLIFTON * Telephone Encounter - Mariam Corbin Ma - 01/08/2022 3:01 PM EDT Pt reports disability paperwork will be filled out by OBGYN. Pt reports okay to throw away our copy. Mariam Corbin Ma * Telephone Encounter - Mariam Corbin Ma - 01/08/2022 12:14 PM EDT Type of form: Short-term Disability received on 01/07/2022. Form received via walk in When form is completed, Fax form to & patient will grape picker original copy. Form has been forwarded to Nurse Practictioner: CLIFTON Villalta Ma documented in this encounterOhiohealth Nelsonville [facility] Center09-01-2022 History of Present illness Narrative* Nida Huynh MD - 01/08/2022 3:56 PM EDT Mary Guillen 1990 REFERRING PHYSICIAN: Toñito Johnson APRN* CHIEF COMPLAINT: Consult (Periumbilical hernia) HPI: The patient is a 31 year old female presents with a periumbilical hernia. She has noted this for about two weeks. She notes a pressure sensation in the area that is constant She notes that the pain is about 5 out of 10 on a scale of 1-10. She denies any protrusion in the area. She also states that on her job, she has to wear a heavy belt with attachments which rubs right at that location causing pain. She is scheduled to have laparoscopic tubal ligation next week. CT scan 08/15/2021 reveals fat containing umbilical hernia PAST MEDICAL HISTORY Diagnosis Date Anemia Asthma Impaired fasting glucose 09/2014 Miscarriage Unspecified asthma(493.90) PAST SURGICAL HISTORY Procedure Laterality Date CHOLECYSTECTOMY HX 2015 COLONOSCOPY 07/23/2021 EGD 07/23/2021 INSERTION OF IUD 06/11/2009 Mirena IUD REMOVAL (CERAMIC TILE SETTER DEPT)_*FL 02/2010 NEXPLANON INSERTION 03/19/2014,10/2015 left arm NEXPLANON REMOVAL 04/08/2017 PAST SURGICAL HISTORY OF Left 12/29/2017 ORIF medial and lateral malleolus of trimalleolar ankle fracture; Dr. Jeri Ramesh TYMPANOSTOMY LOCAL/TOPICAL ANESTHESIA Current Outpatient Medications Medication Sig Mesalamine (PENTASA) 500 mg CR capsule Take 2 capsules by mouth four times daily. budesonide, enteric coated (ENTOCORT EC) 3 mg 24 hr capsule take 3 capsules by mouth once daily for30 DAYS, THEN DECREASE TO... (REFER TO PRESCRIPTION NOTES). dicyclomine (BENTYL) 10 mg capsule Take 1 capsule by mouth three times daily as needed (for abdominal pain). SLOW RELEASE IRON 142 mg (45 mg [...] Take 1 capsule by mouth once daily. oxyCODONE IR (ROXICODONE) 5 mg immediate release tablet Take 1 tablet by mouth every 8 hours as needed for pain. guaiFENesin (MUCINEX) 600 mg 12 hr tablet Take 2 tablets by mouth twice daily. (Patient not taking:Reported on 12/31/2021) ALLERGIES: Morphine and Sudafed [Pseudoephedrine Hcl] PERSONAL HISTORY: Social History Tobacco Use Smoking status: Never Smokeless tobacco: Never Vaping Use Vaping Use: Never used Substance Use Topics Alcohol use: No Drug use: No FAMILY HISTORY Problem Relation Age of Onset [...] Diabetes Paternal Grandmother Asthma Son Asthma Son The review of systems data was entered by the nurse and reviewed by ia Nursing Notes: Laureen Villasenor LPN 01/08/2022 8:16 AM Signed REVIEW OF SYSTEMS: General: The patient denies fatigue, denies weight loss, denies weight gain, denies feeling hot, and denies feelings of cold. Eyes: The patient denies glaucoma, denies eye injury/surgery, does not wear glasses or contacts. Ear/Nose/Throat: The patient denies allergies, denies hayfever, notes ear infections, and denies bloody noses. Cardiovascular: The patient denies chest pain, denies heart disease, denies high blood pressure,denies cardiac stent, denies prior heart attack, denies irregular heart beat, denies high cholesterol, denies poor circulation, denies heart failure, other cardiac issues, denies claudication, denies cold feet, denies peripheral arterial stent. Respiratory: The patient denies tuberculosis, denies pneumonia, denies frequent cough, denies pulmonary embolism, denies shortness of breath, and denies coughing up blood. Gastrointestinal: The patient denies difficulty swallowing, denies acid reflux, denies ulcers, denies vomiting, denies jaundice/hepatitis, denies gallbladder problems, denies black or tarry stools, denies hemorrhoids, denies bleeding from rectum, denies diverticulitis, denies constipation, denies diarrhea, denies loss of stool control, and notes hernias. Kidney/Bladder: The patient denies kidney stones, denies urine infections, and denies bloody urine. Skin: The patient denies a history of skin cancer, denies bleeding/changing moles, and denies a history of skin rash. Neurologic: The patient denies a history of epilepsy/convulsions, notes headaches, denies head/spinal injuries, and denies stroke/TIA. Psychiatric: The patient denies psychiatric medications, denies depression, and denies voices, denies substance abuse. Endocrine: The patient denies thyroid disorders, denies diabetes, and denies hormonal problems. Hematologic: The patient denies a history of bruising, denies bleeding, and denies anemia, denies blood clots. Infections: The patient denies a history of measles and mumps, denies rheumatic fever, and denies sexually transmitted diseases. Musculoskeletal: The patient denies back pain/injury, denies back problems, denies sciatica, deniesknee/foot trouble, denies arthritis, or denies gout. When was patient's last Mammogram screening? 2013 Last Colonoscopy: 2021 Laureen Villasenor LPN PHYSICAL EXAMINATION: General: The patient is 31 year old female, well nourished, well hydrated in no acute distress. Thepatient is oriented to time, place, and person. VITALS: Blood pressure 100/64, pulse 97, temperature 36.6 C (97.9 F), height 157.5 cm (5' 2), weight 88 kg (194 lb), last menstrual period 04/15/2020, SpO2 97 %. Body mass index is 35.48 kg/m . Head: Normal cephalic, atraumatic Eyes: pupils are equally round, sclera are clear/anicteric Neck is supple with no tracheal deviation Respiratory: Normal respiratory excursion and pattern. Abdominal exam: benign Extremities: no clubbing, cyanosis or edema. Neuro: non focal Psych: normal mood Assessment IMPRESSION: umbilical hernia PLAN: I have discussed the above with the patient. Ideally, it would be better for the patient to have umbilical hernia repair and tubal ligation donesimultaneously, However, I will not be available at the date she has scheduled for surgery with . Patient doesn't want to postpone her surgery with Dr. Zhang and she doesn't want to take additional time off from work for another surgery. I will discuss with Dr. Zhang, if she will be comfortable with hernia repair to be done at the time. The patient has an appointment with Dr. Zhang this afternoon Patient acknowledges above. The patient wishes to proceed. I have answered all questions to the patient s satisfaction and the patient has no further questions. I have confirmed and edited as necessary, the PFSH and ROS obtained by others. Consultation requested by Toñito Johnson for an opinion regarding patient's periumbilical hernia.My final recommendations will be communicated back to the requesting physician by way of shared Medical record or letter to requesting physician via US mail. . Diagnoses: (K42.9) Periumbilical hernia Return to Clinic: The patient is encouraged to follow up in the clinic if any worsening signs/symptoms. Medical Decision Making: Problems: Low: Acute, uncomplicated illness or injury Data: Unique test result(s) reviewed: 1 Medical Decision Making Level: 2 - Straightforward Nida Huynh MD documented in this encounterOhiohealth [facility] Center09-01-2022 History and physical note * Annia Zhang MD - 01/08/2022 3:01 PM EDT Pre-Op History and Physical HPI: The patient is a 31 year old female presenting for pre-operative visit. Pt saw General surgeryfor umbilical hernia- Dr. Huynh spoke to me regarding this agrees to have me perform at same time ofsalpingectomy. She is scheduled for laparoscopic bilateral salpingectomy and repair of umbilical hernia, for desires sterilization and umbilical hernia on 01/15/2022. Procedure discussed along with risks, benefits and complications. Other alternatives discussed for management. Consent form signed? Yes. PAST MEDICAL HISTORY Diagnosis Date Anemia Asthma Impaired fasting glucose 09/2014 Miscarriage Unspecified asthma(493.90) PAST SURGICAL HISTORY Procedure Laterality Date CHOLECYSTECTOMY HX 2016 COLONOSCOPY 07/23/2021 EGD 07/23/2021 INSERTION OF IUD 06/11/2009 Mirena IUD REMOVAL (CERAMIC TILE SETTER DEPT)_*FL 02/2010 NEXPLANON INSERTION 03/19/2014,10/2015 left arm NEXPLANON REMOVAL 04/08/2017 PAST SURGICAL HISTORY OF Left 12/29/2017 ORIF medial and lateral malleolus of trimalleolar ankle fracture; Dr. Jeri Ramesh TYMPANOSTOMY LOCAL/TOPICAL ANESTHESIA Current Outpatient Medications Medication Sig Dispense Refill Mesalamine (PENTASA) 500 mg CR capsule Take 2 capsules by mouth four times daily. 240 capsule 1 budesonide, enteric coated (ENTOCORT EC) 3 mg 24 hr capsule take 3 capsules by mouth once daily for30 DAYS, THEN DECREASE TO... (REFER TO PRESCRIPTION NOTES). dicyclomine (BENTYL) 10 mg capsule Take 1 capsule by mouth three times daily as needed (for abdominal pain). 60 capsule 2 fluticasone (FLONASE) 50 mcg/actuation nasal spray Use 2 Sprays in each nostril once daily. Rinse mouth after use. 1 Each 1 medroxyPROGESTERone (DEPO-PROVERA) 150 mg/mL inject 1 milliliter intramuscularly for 1 dose 1 mL 3 albuterol HFA (PROVENTIL HFA, VENTOLIN HFA) 90 mcg/actuation inhaler Inhale 2 Puffs as instructed every 2 hours as needed for wheezing/shortness of breath. 8 g 0 Cholecalciferol, Vitamin D3, 125 mcg (5,000 unit) cap Take 1 capsule by mouth once daily. 90 capsule 3 guaiFENesin (MUCINEX) 600 mg 12 hr tablet Take 2 tablets by mouth twice daily. (Patient not taking:Reported on 12/31/2021) 24 tablet 0 SLOW RELEASE IRON 142 mg (45 mg iron) TbER Take 45 mg by mouth twice daily with meals. Current Facility-Administered Medications Medication Dose Route Frequency Provider Last Rate Last Admin medroxyPROGESTERone 150 mg injection (DEPO-PROVERA) 150 mg INTRAMUSCULAR every 12 weeks Sera Bruner APRN.RECORDING ARTIST 150 mg at 11/05/21 1530 ALLERGIES: Morphine and Sudafed [Pseudoephedrine Hcl] PERSONAL HISTORY: Social History Tobacco Use Smoking status: Never Smokeless tobacco: Never Vaping Use Vaping Use: Never used Substance Use Topics Alcohol use: No Drug use: No FAMILY HISTORY: FAMILY HISTORY Problem Relation Age of Onset [...] Diabetes Paternal Grandmother Asthma Son Asthma Son REVIEW OF SYMPTOMS: negative except as noted above PHYSICAL EXAMINATION: VITALS: Blood pressure 110/66, weight 195 lb (88.5 kg), last menstrual period 04/15/2020. GENERAL: The patient is well nourished, well hydrated in no acute distress. , The patient is oriented to time, place, and person. NECK: full range of motion LUNGS: Clear to auscultation bilaterally. no wheezes, rhonchi or rales HEART: Regular rate and rhythm, Normal heart sounds, and No murmurs or gallops IMPRESSION: G3, P2 female desires permanent sterilization. Umbilical hernia present nonincarcerated. PLAN: Laparoscopic bilateral salpingectomy, repair of umbilical hernia Pt has been counseled on risks/benefits and alternatives of surgery including but not limited to anesthesia, bleeding, infection, injury to pelvic structures including bowel, bladder, ureters and vessels. Pt wishes to proceed with surgery at this time. Pre and post op instructions reviewed. Oxycodone ordered post op . I have reviewed and updated past medical and surgical history, medications and allergies Annia Zhang MD documented in this encounterOhiohealth Nelsonville [facility] Center09-01-2022 Nurse Note* Laureen Villasenor, KEIRA - 01/08/2022 8:14 AM EDT REVIEW OF SYSTEMS: General: The patient denies fatigue, denies weight loss, denies weight gain, denies feeling hot, and denies feelings of cold. Eyes: The patient denies glaucoma, denies eye injury/surgery, does not wear glasses or contacts. Ear/Nose/Throat: The patient denies allergies, denies hayfever, notes ear infections, and denies bloody noses. Cardiovascular: The patient denies chest pain, denies heart disease, denies high blood pressure,denies cardiac stent, denies prior heart attack, denies irregular heart beat, denies high cholesterol, denies poor circulation, denies heart failure, other cardiac issues, denies claudication, denies cold feet, denies peripheral arterial stent. Respiratory: The patient denies tuberculosis, denies pneumonia, denies frequent cough, denies pulmonary embolism, denies shortness of breath, and denies coughing up blood. Gastrointestinal: The patient denies difficulty swallowing, denies acid reflux, denies ulcers, denies vomiting, denies jaundice/hepatitis, denies gallbladder problems, denies black or tarry stools, denies hemorrhoids, denies bleeding from rectum, denies diverticulitis, denies constipation, denies diarrhea, denies loss of stool control, and notes hernias. Kidney/Bladder: The patient denies kidney stones, denies urine infections, and denies bloody urine. Skin: The patient denies a history of skin cancer, denies bleeding/changing moles, and denies a history of skin rash. Neurologic: The patient denies a history of epilepsy/convulsions, notes headaches, denies head/spinal injuries, and denies stroke/TIA. Psychiatric: The patient denies psychiatric medications, denies depression, and denies voices, denies substance abuse. Endocrine: The patient denies thyroid disorders, denies diabetes, and denies hormonal problems. Hematologic: The patient denies a history of bruising, denies bleeding, and denies anemia, denies blood clots. Infections: The patient denies a history of measles and mumps, denies rheumatic fever, and denies sexually transmitted diseases. Musculoskeletal: The patient denies back pain/injury, denies back problems, denies sciatica, deniesknee/foot trouble, denies arthritis, or denies gout. When was patient's last Mammogram screening? 2013 Last Colonoscopy: 2021 Laureen Villasenor LPN documented in this encounterOhiohealth Nelsonville [facility] Center08-31-2022 Miscellaneous Notes* Telephone Encounter - Macie Grimaldo MA - 01/07/2022 2:08 PM EDT Patient active MyChart. Patient notified via [employer] message. Macie Grimaldo MA * Telephone Encounter - Toñito Johnson APRN.CNP - 01/07/2022 10:28 AM EDT She actually should have her surgeon fill out the short term disability paperwork. Toñito Johnson APRN.CLIFTON * Telephone Encounter - Mariam Corbin Ma - 01/07/2022 8:00 AM EDT Please see pt message and advise. Will document and place form in [facility] office when received. Mariam Corbin Ma documented in this encounterOhiohealth Nelsonville [facility] Center08-31-2022 Miscellaneous Notes* Telephone Encounter - Asiya Richey - 01/07/2022 8:26 AM EDT PT is scheduled * Telephone Encounter - Mariam Corbin Ma - 01/05/2022 4:29 PM EDT Pt informed, verbalized understanding. Pt reports she has disability paperwork and patient will drop off at [facility]. Mariam Corbin Ma * Telephone Encounter - Toñito Johnson APRN.CNP - 01/05/2022 4:26 PM EDT Please let Mary know that I was able to speak with her GI specialist, and they agree that she should see a general surgeon for assessment/review of her periumbilical hernia. Please assist her toschedule this appointment. Toñito Johnson APRN.CNP documented in this encounterOhiohealth Nelsonville [facility] Center08-26-2022 Miscellaneous Notes* Telephone Encounter - Tessa Casey LPN - 01/02/2022 10:22 AM EDT [place] calls brand name Pentasa is preferred over generic. Insurance spoke with pharmacy and med has to ordered Pentasa will be in on Wednesday. Patient was notified and states that she has enough medication to last her until Wednesday. * Telephone Encounter - Nichole Beck Ma - 01/01/2022 1:55 PM EDT Prior Authorization has been completed online at [employer] for Mesalamine, will await response. [id number] Please keep encounter open until final decision has been received and documented from insurance company. Nichole Beck MA documented in this encounterOhiohealth Nelsonville [facility] Center08-24-2022 History of Present illness Narrative* Toñito Johnson APRN.CNP - 12/31/2021 2:56 PM EDT Chief Complaint Patient presents with: Follow Up: Abdominal pain, needs note to return to work HPI Mary Guillen is a 31 year old female who presents here today for Above Complaints.. Today: Abdominal pain in the middle of her stomach near her belly button. Hasn't been able to go to work for the past week. Has had diarrhea multiple times daily. Was given Bentyl, which is helping pain. Wants to go back to work-but needs a note that it is ok. Stool is starting to be more formed today. Past medical history, appointments, medications, allergies reviewed. Previous Medical History PAST MEDICAL HISTORY Diagnosis Date Anemia Asthma Impaired fasting glucose 09/2014 Miscarriage Unspecified asthma(493.90) Previous Surgical History PAST SURGICAL HISTORY Procedure Laterality Date CHOLECYSTECTOMY HX 2016 COLONOSCOPY 07/23/2021 EGD 07/23/2021 INSERTION OF IUD 06/11/2009 Mirena IUD REMOVAL (CERAMIC TILE SETTER DEPT)_*FL 02/2010 NEXPLANON INSERTION 03/19/2014,10/2015 left arm NEXPLANON REMOVAL 04/08/2017 PAST SURGICAL HISTORY OF Left 12/29/2017 ORIF medial and lateral malleolus of trimalleolar ankle fracture; Dr. Jeri Ramesh TYMPANOSTOMY LOCAL/TOPICAL ANESTHESIA Family History FAMILY HISTORY [...] on File Prior to Visit Medication Sig budesonide, enteric coated (ENTOCORT EC) 3 mg 24 hr capsule take 3 capsules by mouth once daily for30 DAYS, THEN DECREASE TO... (REFER TO PRESCRIPTION NOTES). dicyclomine (BENTYL) 10 mg capsule Take 1 capsule by mouth three times daily as needed (for abdominal pain). SLOW RELEASE IRON 142 mg (45 mg iron) TbER Take 45 mg by mouth twice daily with meals. Mesalamine (PENTASA) 500 mg CR capsule Take 2 capsules by mouth four times daily. fluticasone (FLONASE) 50 mcg/actuation nasal spray Use [...] Take 1 capsule by mouth once daily. benzonatate (TESSALON PERLE) 100 mg capsule Take 1-2 capsules tid prn, no more than 6 in 24 hours. (Patient not taking: Reported on 12/31/2021) guaiFENesin (MUCINEX) 600 mg 12 hr tablet Take 2 tablets by mouth twice daily. (Patient not taking:Reported on 12/31/2021) Current Facility-Administered Medications on File Prior to Visit Medication medroxyPROGESTERone 150 mg injection (DEPO-PROVERA) Social History Social History Tobacco Use Smoking status: Never Smokeless tobacco: Never Vaping Use Vaping Use: Never used Substance Use Topics Alcohol use: No Drug use: No Review of Symptoms REVIEW OF SYSTEMS See HPI, otherwise negative EXAM: BP 116/80 (BP Site: Left Arm, BP Position: Sitting, BP Cuff Size: Regular Adult) Pulse 89 Resp 16 Wt 88.2 kg (194 lb 6.4 oz) LMP 04/15/2020 (Exact Date) SpO2 99% BMI 35.56 kg/m General Appearance: Well appearing, alert, in no acute distress, well-hydrated, well nourished.. Lungs: Lungs clear to auscultation. No wheezing, rhonchi, rales.. Heart: RRR without murmur, gallop, or rubs. No ectopy. Abdomen: Abdomen soft, bowel sounds normal. No masses, organomegaly. Small periumbilical hernia tender to palpation. Health Maintenance List HEPATITIS A(1 of 2 - Risk 2-dose series) Never done PNEUMOCOCCAL(1 - PCV) Never done MENINGOCOCCAL B: Consider based on risk(1 of 4 - Increased Risk Bexsero 2-dose series) Never done HEPATITIS B(3 of 3 - Risk 3-dose series) due on 05/12/2004 SPIROMETRY Never done HIV SCREENING Never done COVID-19 VACCINE(2 - Booster for [place] series) due on 09/11/2020 DEPRESSION SCREENING due on 05/06/2021 INFLUENZA(1) due on 01/08/2022 ANNUAL PCP TEAM CHRONIC DISEASE VISIT due on 12/31/2022 DTAP,TDAP,TD(8 - Td or Tdap) due on 07/17/2025 PAP TESTING due on 05/08/2026 HPV TESTING due on 05/08/2026 MMR Completed HEPATITIS C SCREENING Completed Data reviewed Previous records, office notes ASSESSMENT/PLAN: 1. Generalized abdominal pain - ICD9: 789.07, ICD10: R10.84 (primary diagnosis) Has improved at this point. Ok to return to work. - MESALAMINE ER 500 MG CAPSULE,EXTENDED RELEASE 2. Periumbilical hernia - ICD9: 553.1, ICD10: K42.9 Painful with lifting, painful to palpation. Easily reducible. Will notify patient's GI specialist of findings. Toñito Johnson APRN.RECORDING ARTIST documented in this encounterOhiohealth Nelsonville [facility] Center08-02-2022 Miscellaneous Notes* Telephone Encounter - Tia Osei PA-C - 12/09/2021 8:41 AM EDT Placed tx plan for Remicade. Tia Osei PA-C documented in this encounterOhiohealth Nelsonville [facility] Center07-27-2022 Instructions* Patient Instructions* Tia Osei PA-C - 12/03/2021 4:06 PM EDT OBTAIN YEARLY EYE AND SKIN CHECK documented in this encounterOhiohealth Nelsonville [facility] Center07-27-2022 History of Present illness Narrative* Tia Osei PA-C - 12/03/2021 3:42 PM EDT CHIEF COMPLAINT: Patient presents with: Procedure Follow Up: Colon- IBD, Diarrhea HPI Mary Guillen is a 31 year old female here today for Procedure Follow Up (Colon- IBD, Diarrhea ). Dx with Crohn's ileitis w/ stricture via colon 07/2021. Bxs negative for Celiac. Started on Pentasa QID and Entocort with some noticeable improvement in bowel irregularities. Seen by Dr. Valencia for stricture/hernia with no plans for intervention for stricture and recommendations to consider biologic. Recently had COVID, feeling somewhat better. BMs are 1-7 per day, loose rarely formed, recently small amount of bright rectal bleeding. C. Diff negative 05/2021. Still on Entocort taper. T aking Tylenol PRN for cramping with some relief but finds she is having to take it frequently at higher dosages. CTE 08/15/2021 IMPRESSION: Hyperemia of terminal ileum consistent with distal ileitis. Narrowed distal aspect of the ileum consistent with endoscopic finding of a stricture. Fat-containing umbilical hernia Component Latest Ref Rng & Units 09/04/2021 WBC 3.70 - 11.00 k/uL 8.71 RBC 3.90 - 5.20 m/uL 4.23 Hemoglobin 11.5 - 15.5 g/dL 12.2 Hematocrit 36.0 - 46.0 % 39.3 MCV 80.0 - 100.0 fL 92.9 MCH 26.0 - 34.0 pg 28.8 MCHC 30.5 - 36.0 g/dL 31.0 RDW-CV 11.5 - 15.0 % 12.5 Platelet Count 150 - 400 k/uL 319 MPV 9.0 - 12.7 fL 9.8 Neut% % 62.9 Abs Neut (ANC) 1.45 - 7.50 k/uL 5.47 Lymph% % 30.7 Abs Lymph 1.00 - 4.00 k/uL 2.67 Forrest% % 4.8 Abs Forrest <0.87 k/uL 0.42 Eosin% % 1.0 Abs Eosin <0.46 k/uL 0.09 Baso% % 0.3 Abs Baso <0.11 k/uL 0.03 Immature Gran % % 0.3 IMMATURE GRANS (ABS) <0.10 k/uL 0.03 NRBC /100 WBC 0.0 Absolute nRBC <0.01 k/uL <0.01 DTYPE Auto Protein, Total 6.3 - 8.0 g/dL 7.0 Albumin 3.9 - 4.9 g/dL 4.0 Calcium 8.5 - 10.2 mg/dL 9.1 Bilirubin, Total 0.2 - 1.3 mg/dL 0.2 Alkaline Phosphatase 34 - 123 U/L 110 AST 13 - 35 U/L 25 ALT 7 - 38 U/L 43 (H) Glucose 74 - 99 mg/dL 96 BUN 7 - 21 mg/dL 14 Creatinine 0.58 - 0.96 mg/dL 0.77 Sodium 136 - 144 mmol/L 139 Potassium 3.7 - 5.1 mmol/L 4.2 Chloride 97 - 105 mmol/L 105 CO2 22 - 30 mmol/L 24 Anion Gap 9 - 18 mmol/L 10 eGFR >=60 mL/min/1.73m 106 Iron 41 - 186 ug/dL 54 TIBC 232 - 386 ug/dL 305 Transferrin Saturation 15 - 57 % 18 Ferritin 14.7 - 205.1 ng/mL 73.3 Component Latest Ref Rng & Units 08/01/2021 Calprotectin, Fecal 0 - 50 mg/kg 725.9 (H) Current Outpatient Medications Medication Sig budesonide, enteric coated (ENTOCORT EC) 3 mg 24 hr capsule take 3 capsules by mouth once daily for30 DAYS, THEN DECREASE TO... (REFER TO PRESCRIPTION NOTES). benzonatate (TESSALON PERLE) 100 mg capsule Take 1-2 capsules tid prn, no more than 6 in 24 hours. guaiFENesin (MUCINEX) 600 mg 12 hr tablet Take 2 tablets by mouth twice daily. SLOW RELEASE IRON 142 mg (45 mg iron) TbER Take 45 mg by mouth twice daily with meals. dicyclomine (BENTYL) 20 mg tablet Take 1 tablet by mouth twice daily. fluticasone (FLONASE) 50 mcg/actuation nasal spray Use [...] 2 capsules by mouth four times daily. Current Facility-Administered Medications Medication Dose Route Frequency medroxyPROGESTERone 150 mg injection (DEPO-PROVERA) 150 mg INTRAMUSCULAR every 12 weeks ALLERGIES Allergen Reactions Morphine Rash, GI Upset Sudafed [Pseudoephe* Intolerance heart palpations and loopy Social History Tobacco Use Smoking status: Never Smoker Smokeless tobacco: Never Used Vaping Use Vaping Use: Never used Substance Use Topics Alcohol use: No Drug use: No PAST MEDICAL HISTORY Diagnosis Date Anemia Asthma Impaired fasting glucose 09/2014 Miscarriage Unspecified asthma(493.90) PAST SURGICAL HISTORY Procedure Laterality Date CHOLECYSTECTOMY HX 2016 COLONOSCOPY 07/23/2021 EGD 07/23/2021 INSERTION OF IUD 06/11/2009 Mirena IUD REMOVAL (CERAMIC TILE SETTER DEPT)_*FL 02/2010 NEXPLANON INSERTION 03/19/2014,10/2015 left arm NEXPLANON REMOVAL 04/08/2017 PAST SURGICAL HISTORY OF Left 12/29/2017 ORIF medial and lateral malleolus of trimalleolar ankle fracture; Dr. Jeri Ramesh TYMPANOSTOMY LOCAL/TOPICAL ANESTHESIA FAMILY HISTORY Problem Relation Age of Onset [...] Diabetes Paternal Grandmother Asthma Son Asthma Son REVIEW OF SYSTEMS Review of Systems Gastrointestinal: Positive for blood in stool and diarrhea. All other systems reviewed and are negative. PHYSICAL EXAM BP 114/82 Pulse 87 Ht 5' 2 (1.58m) Wt 198 lb 4.8 oz (89.9kg) LMP 04/15/2020 BMI 36.26 kg/(m^2). Physical Exam Constitutional: General: She is not in acute distress. Appearance: Normal appearance. She is normal weight. She is not ill-appearing, toxic-appearing or diaphoretic. HENT: Head: Normocephalic and atraumatic. Nose: Nose normal. Eyes: General: No scleral icterus. Right eye: No discharge. Left eye: No discharge. Extraocular Movements: Extraocular movements intact. Conjunctiva/sclera: Conjunctivae normal. Pupils: Pupils are equal, round, and reactive to light. Cardiovascular: Rate and Rhythm: Normal rate and regular rhythm. Pulses: Normal pulses. Heart sounds: Normal heart sounds. No murmur heard. No friction rub. No gallop. Pulmonary: Effort: No respiratory distress. Breath sounds: Normal breath sounds. No stridor. No wheezing, rhonchi or rales. Chest: Chest wall: No tenderness. Abdominal: General: Abdomen is flat. Bowel sounds are normal. There is no distension. Palpations: Abdomen is soft. There is no mass. Tenderness: There is no abdominal tenderness. There is no right CVA tenderness, left CVA tenderness, guarding or rebound. Hernia: No hernia is present. Musculoskeletal: General: Normal range of motion. Cervical back: Normal range of motion and neck supple. Skin: General: Skin is warm and dry. Neurological: General: No focal deficit present. Mental Status: She is alert and oriented to person, place, and time. Psychiatric: Mood and Affect: Mood normal. Behavior: Behavior normal. Assessment/Plan (K50.018) Crohn's disease of ileum with other complication (HCC) (primary encounter diagnosis) (Z11.59) Encounter for screening for viral disease 1. Crohn's disease of ileum with other complication (HCC) - CALPROTECTIN,FECAL - PANC ELASTASE, FECAL - CBC + DIFF; Future - dicyclomine (BENTYL) 10 mg capsule; Take 1 capsule by mouth three times daily as needed (for abdominal pain). Dispense: 60 capsule; Refill: 2 - Continue Pentasa QID, Entocort taper as prescribed - Start Bentyl PRN, has been taking Tylenol PRN for cramping with minimal relief - Discussed dx of Crohn's in detail and provided patient education book regarding common Crohn's questions w/ answers - Discussed starting biologic tx due to complicated Crohn's and pt is agreeable, she would prefer IV infusion tx rather than Humira/Stelara as she is concerned about at home self-injections. Informedof risk of malignancies/lymphomas/infections with tx and pt verbalized understanding - Will place tx plan for Remicade once TB, Hep B results are back - Recheck fecal calprotectin, r/o EPI via elastase - Getting tubes tied 01/15/2022, will likely start infusions after this - Discussed importance of yearly eye/skin checks 2. Encounter for screening for viral disease - HEP B SURF AG SCRN; Future - BLOOD TB SCREEN, INCUBATED; Future - HEPATITIS A ANTIBODY, IGG; Future - HEP B SURF AB QUANT; Future - HEP B CORE AB TOTAL; Future - HEP C AB IA W/CONF SCRN; Future Recommended to please call office/go to ER if fever, chills, chest pain, SOB, diarrhea, nausea, emesis, worsening abdominal pain, dehydration occurs I spent a total of 25 minutes on the date of the service which included preparing to see the patient, [id number] patient care, completing clinical documentation, obtaining and/or reviewing separately obtained history, performing a medically appropriate examination, counseling and educating the pat ient/family/caregiver, ordering medications, tests, or procedures, communicating with other HCPs (not separately reported), independently interpreting results (not separately reported), communicatingresults to the patient/family/caregiver, and care coordination (not separately reported). Tia Osei PA-C December 03, 2021 4:11 PM documented in this encounterOhiohealth Nelsonville [facility] Center07-18-2022 Instructions* Patient Instructions* Jess Cohen APRN.CNP - 11/24/2021 9:41 AM EDT covid test ordered You will be notified in 24 -48 hours, results available on [facility] until covid results are back Rest, increase water intake Tylenol as needed for fever or pain. Salt water gargles, chloraseptic spray or lozenges as needed for sore throat. Warm beverages, honey. Nasal saline spray as needed Cool mist humidifier at night Tylenol (generic acetaminophen) 500 mg-2 tabs every 6- 8 hrs. as needed for fever and aches -Mucinex (generic is fine) Guaifenesin 1200 mg twice daily to help with cough and to thin out mucus * Seek medical care immediately, call 911, go to ER if you have chest pain, difficulty breathing, shortness of breath, inability to swallow. documented in this encounterOhiohealth Nelsonville [facility] Center07-18-2022 History of Present illness Narrative* Jess Cohen APRN.CNP - 11/24/2021 9:33 AM EDT Subjective The history is provided by the patient. No supervisor modern languages was used. HPI Mary Guillen is a 31 year old female who presents today for CC of sore throat, fever, bodyaches and cough. This started in past 24 hours Symptoms include: Fever (?100.4F): Yes or Chills: Yes Cough: Yes Shortness of breath: No or Difficulty breathing: No Fatigue: Yes Muscle aches: Yes Headache: Yes New loss of smell or taste: No Sore throat: Yes Nasal congestion: Yes or Rhinorrhea: Yes Nausea: No or Vomiting: No Diarrhea: No OTC meds/remedies that patient has tried: acetaminophen. High risk category assessment On immunosuppressive therapy Exposures: Sick contacts? Yes Family or close contacts with confirmed/probable COVID-19 in last 14 days? Yes BP 108/68 Pulse 94 Temp 36.9 C (98.5 F) Resp 16 Wt 87.1 kg (192 lb) LMP 04/15/2020 (ExactDate) SpO2 98% BMI 35.12 kg/m Social History Tobacco Use Smoking status: Never Smoker Smokeless tobacco: Never Used Vaping Use Vaping Use: Never used Substance Use Topics Alcohol use: No Drug use: No PAST MEDICAL HISTORY Diagnosis Date Anemia Asthma Impaired fasting glucose 09/2014 Miscarriage Unspecified asthma(493.90) I have confirmed and edited as necessary, the [facility] Review of Systems Constitutional: Positive for malaise/fatigue. Negative for chills and fever. HENT: Positive for congestion, sinus pain and sore throat. Negative for ear pain. Respiratory: Positive for cough. Negative for sputum production, shortness of breath and wheezing. Cardiovascular: Negative for chest pain. Musculoskeletal: Positive for myalgias. Neurological: Negative for headaches. Objective Physical Exam Vitals and nursing note reviewed. HENT: Head: Normocephalic and atraumatic. Right Ear: Tympanic membrane, ear canal and external ear normal. Left Ear: Tympanic membrane, ear canal and external ear normal. Nose: Mucosal edema, congestion and rhinorrhea present. Mouth/Throat: Pharynx: Uvula midline. Posterior oropharyngeal erythema present. No oropharyngeal exudate or uvulaswelling. Cardiovascular: Rate and Rhythm: Normal rate and regular rhythm. Heart sounds: Normal heart sounds. Pulmonary: Effort: Pulmonary effort is normal. Breath sounds: Normal breath sounds. Lymphadenopathy: Head: Right side of head: No submental, submandibular or tonsillar adenopathy. Left side of head: No submental, submandibular or tonsillar adenopathy. Cervical: No cervical adenopathy. Skin: General: Skin is warm and dry. Neurological: Mental Status: She is alert. Psychiatric: Mood and Affect: Affect normal. ASSESSMENT/PLAN: 1. Sore throat - ICD9: 462, ICD10: J02.9 (primary diagnosis) - suspect viral - Discussed supportive care treatment with fluids, rest and analgesia. - The patient may also use warm salt water gargles, throat lozenges and/or OTC throat spray as needed. - The patient should follow up in one week if symptoms persist or worsen - Call back if drooling, increased temperature, symptoms of dehydration and/or still sick in one week - STREP A MOLECULAR (POC) 2. Exposure to COVID-19 virus - ICD9: V01.79, ICD10: Z20.822 Suspect covid viral infection Home isolation Testing ordered Comfort measures discussed - see patient instructions. When to seek higher level of care Notified in 24-48 hours with results, available on [employer] - COVID WITH FLUA+B, ROUTINE Diagnosis and treatment plan were discussed and questions were answered to the patient's satisfaction. Pt acknowledged understanding of concepts and follow up plan. Specific signs and symptoms that would indicate the need for higher level of care were discussed indetail warranting prompt ER evaluation. Jess Cohen APRN.CLIFTON documented in this encounterOhiohealth Nelsonville [facility] Center07-13-2022 History of Present illness Narrative* Annia Zhang MD - 11/19/2021 3:15 PM EDT Mary Guillen is a 31 year old female who presents for discussion regarding sterilization. Patient reports is currently on the Depo-Provera. Is overall happy with it. Patient would like to consider permanent sterilization as she has 2 children does not desire further childbearing capabilitiesat this time. Patient is concerned with her history of Crohn's disease wondered if this would impact having surgery. Patient states she also has an umbilical hernia. Patient is not interested in IUD at this time. She reports she has gained significant weight on the Depo-Provera. Patient offers no other concerns at this time. OB History T2 L2 SAB1 IAB0 Ectopic0 Multiple0 Live Births2 Research Scholar History LMP: 04/15/2020 (Exact Date), Injection Age at Menarche: Age at First : Age at Menopause: Research Scholar History Comments: Sexual Activity: Yes; Male Contraception: None PAST MEDICAL HISTORY Diagnosis Date Anemia Asthma Impaired fasting glucose 09/2014 Miscarriage Unspecified asthma(493.90) PAST SURGICAL HISTORY Procedure Laterality Date CHOLECYSTECTOMY HX 2016 COLONOSCOPY 07/23/2021 EGD 07/23/2021 INSERTION OF IUD 06/11/2009 Mirena IUD REMOVAL (CERAMIC TILE SETTER DEPT)_*FL 02/2010 NEXPLANON INSERTION 03/19/2014,10/2015 left arm NEXPLANON REMOVAL 04/08/2017 PAST SURGICAL HISTORY OF Left 12/29/2017 ORIF medial and lateral malleolus of trimalleolar ankle fracture; Dr. Jeri Ramesh TYMPANOSTOMY LOCAL/TOPICAL ANESTHESIA FAMILY HISTORY Problem Relation Age of Onset [...] Social History Tobacco Use Smoking status: Never Smoker Smokeless tobacco: Never Used Vaping Use Vaping Use: Never used Substance Use Topics Alcohol use: No Drug use: No Current Outpatient Medications Medication Sig predniSONE (DELTASONE) 10 mg tablet Take 4 tabs daily for 3 days, then 2 tabs daily for 3 days, then 1 tab daily for 3 days with food. benzonatate (TESSALON PERLES) 100 mg capsule Take 1 capsule by mouth three times daily as needed for cough. SLOW RELEASE IRON 142 mg (45 mg iron) TbER Take 45 mg by mouth twice daily with meals. dicyclomine (BENTYL) 20 mg tablet Take 1 tablet by mouth twice daily. Mesalamine (PENTASA) 500 mg CR capsule Take 2 capsules by mouth four times daily. peg 3350-Electrolytes (GOLYTELY) 236-22.74-6.74 -5.86 gram suspension Refer to printed prep instructions from your provider. fluticasone (FLONASE) 50 mcg/actuation nasal spray Use [...] Take 1 capsule by mouth once daily. Current Facility-Administered Medications Medication Dose Route Frequency medroxyPROGESTERone 150 mg injection (DEPO-PROVERA) 150 mg INTRAMUSCULAR every 12 weeks Allergies As of Date: 11/19/2021 Allergen Noted Reaction MORPHINE 12/26/2020 Rash and GI Upset SUDAFED [PSEUDOEPHEDRINE HCL] 11/13/2014 Intolerance Fully Assessed 11/05/2021 REVIEW OF SYSTEMS Abdomen: no pain Bladder: no dysuria.. Expanded ROS: GENERAL: Negative for fever Allergies and current medication updated:Yes EXAM: BP 110/68 Wt 197 lb (89.4kg) LMP 04/15/2020 GENERAL: pleasant, female in no apparent distress HEENT: Normocephalic and atraumatic NECK: full range of motion DERMATOLOGY: Normal, without lesions, non-icteric and non-hirsute NEURO: alert and oriented x3,exam grossly non-focal EXTREMITIES: normal ASSESSMENT AND PLAN: Encounter Diagnosis ICD-10-CM 1. Sterilization consult Z30.09 2. Discussed other nonpermanent forms of contraception such as a IUD or other hormonal contraception like control pills. Patient declines at this time. Patient understands that laparoscopic salpingectomy is permanent and that if she desires future childbearing would have to be done with the assistance of reproductive medicine. 3. Discussed risk benefits and alternatives of surgery. Patient would like to proceed with surgery at this time. Title 19 form was signed today as she has a secondary Medicaid insurance. I will see the patient back for preoperative visit we will discuss risk benefits alternatives again in detail. I spent a total of 20 minutes on the date of the service which included preparing to see the patient, [id number] patient care, completing clinical documentation, obtaining and/or reviewing separately obtained history, performing a medically appropriate examination, counseling and educating the pat ient/family/caregiver and ordering medications, tests, or procedures Medical Decision Making Annia Toledo MD documented in this encounterOhiohealth Nelsonville [facility] Center06-29-2022 History of Present illness Narrative* Ekaterina Rico RN - 11/05/2021 3:07 PM EDT Patient identified by name and date of . Mary Guillen is here for a Depo Provera injection. Patient brought medication. Date last injected: 08/01/21 - negative urine test Depo-Provera, 150 mg, administered IM left upper quadrant gluteus, Lot # [id number], expiration date 07/2023. Depo-Provera was given without incident. Patient instructed to return to clinic on 12 weeks. Medication verified by dispensing pharmacist. [email or web address] Provider Cierra Mcmillan MD was present in office at time of injection. Ekaterina Rico RN documented in this encounterOhiohealth Nelsonville Health Center05-26-2022 Instructions* Patient Instructions* Alicia Reynolds APRN.[facility] - 10/02/2021 11:48 AM EDT RESPIRATORY INFECTION GENERAL INFORMATION: An upper respiratory tract infection, or cold, is a viral infection of the airway passages. It can be caused by any one of almost 200 different viruses. Common symptoms include a runny or stuffy nose, sneezing, watery eyes, sore throat, cough, and slight fever. Colds are contagious, especially during the first 3 or 4 days and cannot be cured by antibiotics. They are spread by coughs, sneezes, anddirect contact, especially [id number]. A respiratory tract infection usually clears up in a few days, but some people may be sick for a week or two. INSTRUCTIONS: 1. Be careful not to blow your nose too hard because this may cause a nosebleed. 2. Use a cool-mist humidifier (vaporizer) to increase air moisture. This will make it easier for you to breathe. Do not use hot steam. 3. Rest as much as possible and get plenty of sleep. 4. Wash your hands often, especially after you blow your nose. Cover your mouth and nose with a tissue when you sneeze or cough. 5. Drink plenty of clear fluids (8 glasses a day) such as water, fruit juice, tea, clear soups, andcarbonated beverages. CONTACT YOUR DOCTOR IF : 1. Your fever lasts more than 3 days. 2. You have a sore throat that gets worse or you see white or yellow spots in your throat. 3. Your cough gets worse or lasts more than 10 days. 4. You develop a rash anywhere on your skin. 5. You have an earache or a headache. 6. You have thick greenish or yellowish discharge from your nose. RETURN IMMEDIATELY IF: 1. You cough up thick yellow, green, abdi, or bloody sputum. 2. You have difficulty breathing, pain in your chest, or your skin or nails look abdi or blue. 3. You have shaking chills or a temperature over 102 F (39 C). documented in this encounterOhio[facility] History of Present illness Narrative* Alicia Reynolds APRN.CNP - 10/02/2021 11:35 AM EDT This note was created using ioBridgeriter. Subjective Mary Guillen is a 31 year old female. 31 year old female with PMH asthma, anemia presents for complaints of illness. Acute onset Wednesday night +sore throat +post nasal drainage +cough +chills + fatigue Denies SOB or dyspnea. Denies tobacco usage. Denies ill contacts. 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 The history is provided by the patient. No supervisor modern languages was used. URI She complains of cough and sputum production. There is no chest tightness, difficulty breathing, frequent throat clearing, hemoptysis, hoarse voice, shortness of breath or wheezing. This is a new problem. The current episode started in the past 7 days. The problem occurs constantly. The problem hasbeen gradually worsening. The cough is non-productive. Associated symptoms include malaise/fatigue,nasal congestion, postnasal drip, rhinorrhea, sneezing and a sore throat. Pertinent negatives include no appetite change, chest pain, dyspnea on exertion, ear congestion, ear pain, fever, headaches, heartburn, myalgias, orthopnea, PND, sweats, trouble swallowing or weight loss. Her symptoms are aggr avated by nothing. Her symptoms are alleviated by nothing. She reports no improvement on treatment.There are no known risk factors for lung disease. There is no history of asthma, bronchiectasis, bronchitis, COPD, emphysema or pneumonia. PAST MEDICAL HISTORY Diagnosis Date Anemia Asthma Impaired fasting glucose 09/2014 Miscarriage Unspecified asthma(493.90) PAST SURGICAL HISTORY Procedure Laterality Date CHOLECYSTECTOMY HX 2016 COLONOSCOPY 07/23/2021 EGD 07/23/2021 INSERTION OF IUD 06/11/2009 Mirena IUD REMOVAL (CERAMIC TILE SETTER DEPT)_*FL 02/2010 NEXPLANON INSERTION 03/19/2014,10/2015 left arm NEXPLANON REMOVAL 04/08/2017 PAST SURGICAL HISTORY OF Left 12/29/2017 ORIF medial and lateral malleolus of trimalleolar ankle fracture; Dr. Jeri Ramesh TYMPANOSTOMY LOCAL/TOPICAL ANESTHESIA ALLERGIES Morphine and Sudafed [Pseudoephedrine Hcl] MEDICATIONS SLOW RELEASE IRON 142 mg (45 mg iron) TbER Take 45 mg by mouth twice daily with meals. dicyclomine (BENTYL) 20 mg tablet Take 1 tablet by mouth twice daily. budesonide, enteric coated (ENTOCORT EC) 3 mg 24 hr capsule Take 3 capsules by mouth once daily for30 days, THEN 2 capsules once daily for 30 days, THEN 1 capsule once daily. peg 3350-Electrolytes (GOLYTELY) 236-22.74-6.74 -5.86 gram suspension Refer to printed prep instructions from your provider. fluticasone (FLONASE) 50 mcg/actuation nasal spray Use [...] Social History Tobacco Use Smoking status: Never Smoker Smokeless tobacco: Never Used Vaping Use Vaping Use: Never used Substance Use Topics Alcohol use: No Drug use: No Review of Systems Constitutional: Positive for malaise/fatigue. Negative for appetite change, fever and weight loss. HENT: Positive for congestion, postnasal drip, rhinorrhea, sneezing and sore throat. Negative for ear pain, hoarse voice and trouble swallowing. Eyes: Negative for pain, discharge and itching. Respiratory: Positive for cough and sputum production. Negative for apnea, hemoptysis, choking, chest tightness, shortness of breath and wheezing. Cardiovascular: Negative for chest pain, dyspnea on exertion, palpitations, leg swelling and PND. Gastrointestinal: Negative for abdominal pain, diarrhea, heartburn and nausea. Musculoskeletal: Negative for arthralgias, back pain and myalgias. Skin: Negative for color change, pallor, rash and wound. Allergic/Immunologic: Negative for environmental allergies, food allergies and immunocompromised state. Neurological: Negative for dizziness, facial asymmetry and headaches. Hematological: Negative for adenopathy. Does not bruise/bleed easily. Psychiatric/Behavioral: Negative for behavioral problems. Objective BP 122/80 Pulse 88 Temp 36.6 C (97.9 F) (Tympanic) Resp 18 Wt 87.3 kg (192 lb 6.4 oz) 04/15/2020 (Exact Date) SpO2 97% BMI 35.19 kg/m Physical Exam Vitals and nursing note reviewed. Constitutional: General: She is not in acute distress. Appearance: Normal appearance. She is normal weight. She is not ill-appearing, toxic-appearing or diaphoretic. HENT: Head: Normocephalic and atraumatic. Right Ear: Ear canal and external ear normal. Left Ear: Ear canal and external ear normal. Nose: Nose normal. No congestion or rhinorrhea. Mouth/Throat: Mouth: Mucous membranes are moist. Pharynx: Posterior oropharyngeal erythema (mild erythema. Uvula midline. Handling secretions. ) present. No oropharyngeal exudate. Eyes: General: Right eye: No discharge. Left eye: No discharge. Extraocular Movements: Extraocular movements intact. Conjunctiva/sclera: Conjunctivae normal. Pupils: Pupils are equal, round, and reactive to light. Cardiovascular: Rate and Rhythm: Normal rate and regular rhythm. Pulses: Normal pulses. Heart sounds: Normal heart sounds. No murmur heard. No friction rub. Pulmonary: Effort: Pulmonary effort is normal. No respiratory distress. Breath sounds: Normal breath sounds. No stridor. No wheezing, rhonchi or rales. Chest: Chest wall: No tenderness. Abdominal: General: Abdomen is flat. There is no distension. Palpations: Abdomen is soft. There is no mass. Tenderness: There is no abdominal tenderness. There is no right CVA tenderness, left CVA tenderness, guarding or rebound. Hernia: No hernia is present. Musculoskeletal: General: No swelling, tenderness, deformity or signs of injury. Normal range of motion. Cervical back: Normal range of motion and neck supple. No rigidity. Right lower leg: No edema. Left lower leg: No edema. Lymphadenopathy: Cervical: No cervical adenopathy. Skin: General: Skin is warm and dry. Coloration: Skin is not jaundiced or pale. Findings: No bruising, erythema, lesion or rash. Neurological: General: No focal deficit present. Mental Status: She is alert and oriented to person, place, and time. Cranial Nerves: No cranial nerve deficit. Sensory: No sensory deficit. Motor: No weakness. Coordination: Coordination normal. Gait: Gait normal. Psychiatric: Mood and Affect: Mood normal. Behavior: Behavior normal. Thought Content: Thought content normal. Judgment: Judgment normal. Assessment and Plan ASSESSMENT/PLAN: 1. Pharyngitis, unspecified etiology - ICD9: 462, ICD10: J02.9 (primary diagnosis) - suspect viral - Alere Strep Test NEGATIVE, no culture pending - Discussed supportive care treatment with fluids, rest and analgesia. - The patient may also use OTC cough and cold meds as needed, warm salt water gargles, throat lozenges and/or OTC throat spray as needed and nasal saline gtts and suction prn. - Contagious dz precautions discussed- including considered contagious until on antibiotics for 24 hours - The patient should follow up in 3-5 days if symptoms persist or worsen - Call back if drooling, increased temperature, symptoms of dehydration and/or still sick in one week - STREP A MOLECULAR (POC) - COVID WITH FLUA+B, ROUTINE 2. URI, acute - ICD9: 465.9, ICD10: J06.9 - Discussed viral etiology and rationale for treatment. - Symptomatic treatment with prn analgesia - Supportive care with fluids and rest - The patient may also use OTC cough and cold meds as needed, warm salt water gargles, throat lozenges and/or OTC throat spray as needed and RX Prednisone and Tessalon Perles - Follow up in 3-5 days if symptoms persist or sooner if worsening of symptoms - COVID WITH FLUA+B, ROUTINE-obtained and pending Alicia Reynolds APRN.RECORDING ARTIST documented in this encounterOhio[facility]05-11-2022 NoteHNO ID: [id number] Author: Eddy Valencia MD Service: ? Author Type: Physician Type: Progress Notes Filed: 09/17/2021 1:03 PM Note Text: Eddy Valencia M.D. Colon AND Rectal Surgery [address] [facility], [address] [place] [address] SUBJECTIVE Mary Guillen is a 31 year old /Multicultural female With RLQ pain, possible Crohn's ileitis HPI The patient was referred by Drake Whiting [address] [phone] my recommendation will be sent back. The patient is a pleasant 31-year-old female who presents with right lower quadrant pain. She notes this has been present for the last year or so. She has had longstanding issues starting around 2016 when she was , which were suspected to be due to Svetlana cystitis, and she underwent a laparoscopic cholecystectomy at that time. After this she developed diarrhea with usually 4-5 oily loose bowel movements per day. She was trialed on cholestyramine which never seem to make much of a difference in the symptoms, and largely just dealt with these for the time since then. In the last year she began to develop right lower quadrant pain which is fairly persistent, present most of the time and becoming more severe especially when she eats certain things. She has had work-up of this including a colonoscopy which showed stenosis of the terminal ileum with biopsies showing chronic active enteritis and an ulcer, and a CT enterography showing distal ileitis and a fat-containing umbilical hernia. She was started on mesalamine and budesonide, noting that these have improved her stool frequency. She currently has bowel movements 1-2 times per day which are still loose but better than they had been. The pain persists despite the medication changes. She does note some longstanding heartburn which is relatively mild and was noted to have a small hiatal hernia on her upper endoscopy. Review of Systems Constitutional: Negative for chills, fever and weight loss. HENT: Negative for congestion, ear pain, hearing loss, sinus pain and sore throat. Eyes: Negative for blurred vision, double vision and pain. Respiratory: Negative for cough, shortness of breath and wheezing. Cardiovascular: Negative for chest pain, palpitations and leg swelling. Gastrointestinal: Positive for abdominal pain, diarrhea, heartburn, nausea and vomiting. Negative for constipation. Genitourinary: Negative for dysuria, frequency and urgency. Musculoskeletal: Negative for back pain, joint pain and neck pain. Skin: Negative for itching and rash. Neurological: Positive for weakness. Negative for dizziness and headaches. Endo/Heme/Allergies: Negative for environmental allergies. Bruises/bleeds easily. Psychiatric/Behavioral: Negative for depression and memory loss. The patient is nervous/anxious. The patient does not have insomnia. PAST MEDICAL HISTORY Diagnosis Date - Anemia - Asthma - Impaired fasting glucose 09/2014 - Miscarriage - Unspecified asthma(493.90) PAST SURGICAL HISTORY Procedure Laterality Date - CHOLECYSTECTOMY HX 2015 - COLONOSCOPY 07/23/2021 - EGD 07/23/2021 - INSERTION OF IUD 06/11/2009 Mirena - IUD REMOVAL (CERAMIC TILE SETTER DEPT)_*FL 02/2010 - NEXPLANON INSERTION 03/19/2014,10/2015 left arm - NEXPLANON REMOVAL 04/08/2017 - PAST SURGICAL HISTORY OF Left 12/29/2017 ORIF medial and lateral malleolus of trimalleolar ankle fracture; Dr. Jeri Ramesh - TYMPANOSTOMY LOCAL/TOPICAL ANESTHESIA Social History Tobacco Use - Smoking status: Never Smoker - Smokeless tobacco: Never Used Vaping Use - Vaping Use: Never used Substance Use Topics - Alcohol use: No - Drug use: No FAMILY HISTORY Problem Relation Age of Onset - No Known Problems Mother - No Known Problems Father - No Known Problems Sister - No Known Problems Sister - No Known Problems Sister - No Known Problems Sister - No Known Problems Brother - No Known Problems Brother - No Known Problems Brother - No Known Problems Brother - Cancer Maternal Grandmother liver and lung - Dementia Maternal Grandfather - COPD Maternal Grandfather - Hyperlipidemia Maternal Grandfather - Ulcerative Colitis Maternal Grandfather - Diabetes Paternal Grandmother - Asthma Son - Asthma Son The ROS, medical, surgical, family, and social history were reviewed by Eddy Valencia MD ALLERGIES Allergen Reactions - Morphine Rash, GI Upset - Sudafed [Pseudoephe* Intolerance heart palpations and loopy Current Outpatient Medications Medication Sig - dicyclomine (BENTYL) 20 mg tablet Take 1 tablet by mouth twice daily. - Mesalamine (PENTASA) 500 mg CR capsule Take 2 capsules by mouth four times daily. - budesonide, enteric coated (ENTOCORT EC) 3 mg 24 hr capsule Take 3 capsules by mouth once daily for 30 days, THEN 2 capsules once daily for 30 days, THEN 1 capsule once daily. - peg 3350-Elect (more content not included)...[facility] 09-17-2021 Instructions* Patient Instructions* Eddy Valencia MD - 09/17/2021 1:00 PM EDT Inflammatory bowel disease overview Inflammatory bowel disease (IBD) is a group of disorders that cause irritation and swelling of the digestive tract. There are two main diseases that make up IBD: Crohn s disease and ulcerative colitis. Both diseasescause swelling and sores in the lining of the digestive tract and symptoms such as abdominal pain and diarrhea. Approximately 1.5 million people in the [place] have either Crohn s disease or ulcerative colitis. What is Crohn s disease? Crohn's disease is a chronic (long-term) illness in which the intestine (bowel) becomes inflamed and ulcerated (marked with sores). Crohn's disease usually affects the lower part of the small intestine (ileum), although it can occur in any part of the large or small intestine, stomach, esophagus, or even the mouth. It can occur at any age, but it is most common between the ages of 15 and 30. Crohn's disease can upset the normal working of the bowel in a number of ways. The tissue may: swell, thicken, or form scar tissue, leading to blockage of the passageway inside the bowel; develop ulcers that can go into the deep layers of the bowel wall; lose its ability to absorb nutrients from digested foods (malabsorption); develop abnormal passageways (fistulas) from one part of the bowel to another part of the bowel, orfrom the bowel to nearby tissues such as the bladder or vagina, and even the skin. What is ulcerative colitis? Ulcerative colitis is a chronic inflammatory disease that affects the lining of the large intestine(colon) and rectum. People with this condition have tiny ulcers and small abscesses (boils) in their colon and rectum that flare up every so often and cause bloody stools and diarrhea. The inflammation usually begins in the rectum and then spreads to other segments of the colon. The disease can go away for weeks to years at a time. The main difference between Crohn s disease and ulcerative colitis is that Crohn s can develop anywhere in the digestive tract (from the mouth to the rectum), and penetrates into the deep layers of the lining of the digestive tract. Ulcerative colitis usually only affects the lining of the colon. What are the symptoms of inflammatory bowel disease? In patients who have IBD, common symptoms may include: diarrhea abdominal pain bleeding anemia weight loss poor nutrition fistulas (abnormal passageways) Both conditions can also affect the bones, skin, and eyes. What is the cause of inflammatory bowel disease? IBD is probably caused by a problem with the person s immune system. In cases of IBD, the immune system mistakenly perceives food or other substances in the digestive tract as foreign, and floods thetract with white blood cells (which usually fight infections). This overflow of white blood cells causes the symptoms of IBD. The mistake by the immune system may be caused by a virus, bacteria, or allergy. IBD is often a genetic condition (runs in families). How is inflammatory bowel disease diagnosed? Crohn s disease and ulcerative colitis have very similar symptoms, so it can be difficult to tell which one the patient is suffering from. Tests to diagnose IBD include the following: CT Enterography--a test that allows the doctor to perform an X-ray examination of the entire abdomen. Findings of active disease include thickened bowel wall, inflamed bowel, narrowed areas, and fistulas. Flexible sigmoidoscopy--provides a view of the lowest two feet of the colon. The doctor inserts a slender, flexible, lighted tube through the rectum and examines this section of the colon, looking for inflammation, ulcers, or other problems. Colonoscopy--The doctor inserts a thin, flexible, lighted tube that is long enough to view the entire colon with the attached camera. The doctor also can take tissue samples from inside the colon that can be tested in the laboratory for clusters of inflamed cells called granulomas. These clusters are present in Crohn s disease but not in ulcerative colitis, so this is a very useful test for telling the difference between the two diseases. Does diet play a role in inflammatory bowel disease? People who have IBD and are managing it with medication can eat a normal diet. Patients who have chronic diarrhea usually switch to a low-roughage diet. Patients who are lactose-intolerant will avoidmilk in order to prevent symptoms. How is inflammatory bowel disease treated? There is no cure for IBD. In the early stages of both Crohn s disease and ulcerative colitis, medication is the recommended treatment. The goal of medical treatment is to control the inflammation andallow the intestines to heal. Once diarrhea and abdominal pain are under control, medical treatment can reduce the number of flare-ups and keep the disease in remission. The most commonly prescribed drugs for IBD are: corticosteroids such as prednisone and methylprednisolone. These powerful drugs reduce inflammationin the intestines and can help treat fistulas. aminosalicylates such as sulfasalazine and mesalamine. These are anti- inflammatory drugs. immunosuppressive drugs such as 6-mercaptopurine and azathioprine. These drugs can help reduce the dose of corticosteroids the patient has to take. metronidazole, an antibiotic that also affects the immune system. This drug is helpful for patientswho have fissures or abscesses. biologics, for patients who have moderate to severe IBD. Biologics include infliximab, adalimumab, certolizumab, golimumab, natalizumab, and vedolizumab. Up to three-quarters of Crohn s disease patients and one-quarter of ulcerative colitis patients will need surgery. The type of operation the patient needs depends on the disease. In the case of ulcerative colitis, surgery may mean removing the entire colon, especially when medications are not effective or if the patient has severe complications of the disease. Surgery to remove the entire large intestine (colectomy), or both the colon and rectum (proctocolectomy) removes the threat of colon cancer. References Centers for Disease Control and Prevention. Inflammatory Bowel Diseases (IBD) Accessed 01/16/2014. [employer]. Inflammatory Bowel Disease Accessed 01/16/2014. Crohn s & Colitis [employer] [place]. What is Crohn s Disease? Accessed 01/16/2014. Copyright 7263-6695 [facility]. All rights reserved. documented in this encounterOhio[facility]05-11-2022 History of Present illness Narrative* Eddy Valencia MD - 09/17/2021 11:06 AM EDT Images from the original note were not included. Eddy Valencia M.D. Colon & Rectal Surgery 1 [facility], [address] [place] [address] SUBJECTIVE Mary Guillen is a 31 year old /Multicultural female With RLQ pain, possible Crohn's ileitis HPI The patient was referred by Drake Whiting [address] [place] [phone] my recommendation will be sent back. The patient is a pleasant 31-year-old female who presents with right lower quadrant pain. She notesthis has been present for the last year or so. She has had longstanding issues starting around 2016when she was , which were suspected to be due to Svetlana cystitis, and she underwent a laparoscopic cholecystectomy at that time. After this she developed diarrhea with usually 4-5 oily loosebowel movements per day. She was trialed on cholestyramine which never seem to make much of a difference in the symptoms, and largely just dealt with these for the time since then. In the last year she began to develop right lower quadrant pain which is fairly persistent, present most of the time and becoming more severe especially when she eats certain things. She has had work- up of this including a colonoscopy which showed stenosis of the terminal ileum with biopsies showing chronic active enteritis and an ulcer, and a CT enterography showing distal ileitis and a fat-containing umbilical hernia. She was started on mesalamine and budesonide, noting that these have improved her stool frequency. She currently has bowel movements 1-2 times per day which are still loose but better than they had been. The pain persists despite the medication changes. She does note some longstanding heartburn which is relatively mild and was noted to have a small hiatal hernia on her upper endoscopy. Review of Systems Constitutional: Negative for chills, fever and weight loss. HENT: Negative for congestion, ear pain, hearing loss, sinus pain and sore throat. Eyes: Negative for blurred vision, double vision and pain. Respiratory: Negative for cough, shortness of breath and wheezing. Cardiovascular: Negative for chest pain, palpitations and leg swelling. Gastrointestinal: Positive for abdominal pain, diarrhea, heartburn, nausea and vomiting. Negative for constipation. Genitourinary: Negative for dysuria, frequency and urgency. Musculoskeletal: Negative for back pain, joint pain and neck pain. Skin: Negative for itching and rash. Neurological: Positive for weakness. Negative for dizziness and headaches. Endo/Heme/Allergies: Negative for environmental allergies. Bruises/bleeds easily. Psychiatric/Behavioral: Negative for depression and memory loss. The patient is nervous/anxious. The patient does not have insomnia. PAST MEDICAL HISTORY Diagnosis Date Anemia Asthma Impaired fasting glucose 09/2014 Miscarriage Unspecified asthma(493.90) PAST SURGICAL HISTORY Procedure Laterality Date CHOLECYSTECTOMY HX 2016 COLONOSCOPY 07/23/2021 EGD 07/23/2021 INSERTION OF IUD 06/11/2009 Mirena IUD REMOVAL (CERAMIC TILE SETTER DEPT)_*FL 02/2010 NEXPLANON INSERTION 03/19/2014,10/2015 left arm NEXPLANON REMOVAL 04/08/2017 PAST SURGICAL HISTORY OF Left 12/29/2017 ORIF medial and lateral malleolus of trimalleolar ankle fracture; Dr. Jeri Ramesh TYMPANOSTOMY LOCAL/TOPICAL ANESTHESIA Social History Tobacco Use Smoking status: Never Smoker Smokeless tobacco: Never Used Vaping Use Vaping Use: Never used Substance Use Topics Alcohol use: No Drug use: No FAMILY HISTORY Problem Relation Age of Onset [...] Diabetes Paternal Grandmother Asthma Son Asthma Son The ROS, medical, surgical, family, and social history were reviewed by Eddy Valencia MD ALLERGIES Allergen Reactions Morphine Rash, GI Upset Sudafed [Pseudoephe* Intolerance heart palpations and loopy Current Outpatient Medications Medication Sig dicyclomine (BENTYL) 20 mg tablet Take 1 tablet by mouth twice daily. Mesalamine (PENTASA) 500 mg CR capsule Take 2 capsules by mouth four times daily. budesonide, enteric coated (ENTOCORT EC) 3 mg 24 hr capsule Take 3 capsules by mouth once daily for30 days, THEN 2 capsules once daily for 30 days, THEN 1 capsule once daily. peg 3350-Electrolytes (GOLYTELY) 236-22.74-6.74 -5.86 gram suspension Refer to printed prep instructions from your provider. fluticasone (FLONASE) 50 mcg/actuation nasal spray Use [...] Take 1 capsule by mouth once daily. SLOW RELEASE IRON 142 mg (45 mg iron) TbER Take 45 mg by mouth twice daily with meals. Current Facility-Administered Medications Medication Dose Route Frequency medroxyPROGESTERone 150 mg injection (DEPO-PROVERA) 150 mg INTRAMUSCULAR every 12 weeks OBJECTIVE BP 101/79 (BP Site: Left Arm, BP Position: Sitting, BP Cuff Size: Large Adult) Pulse 84 Ht 157.5 cm (5' 2) Wt 86.2 kg (190 lb) LMP 04/15/2020 (Exact Date) BMI 34.75 kg/m BMI 34.75 kg/(m^2) Physical Exam Constitutional: General: She is not in acute distress. Appearance: Normal appearance. Cardiovascular: Rate and Rhythm: Normal rate and regular rhythm. Heart sounds: Normal heart sounds. No murmur heard. No friction rub. No gallop. Pulmonary: Effort: Pulmonary effort is normal. No respiratory distress. Breath sounds: Normal breath sounds. No wheezing or rales. Abdominal: General: There is no distension. Palpations: Abdomen is soft. There is no hepatomegaly. Tenderness: There is abdominal tenderness ( Mild in the right lower quadrant). Comments: She has a palpable umbilical hernia with some fat in this defect which is not easily reduced and is moderately tender to palpation Musculoskeletal: General: No deformity. Normal range of motion. Skin: General: Skin is warm and dry. Findings: No rash. Neurological: Mental Status: She is alert. Coordination: Coordination normal. Gait: Gait normal. Psychiatric: Mood and Affect: Mood normal. Judgment: Judgment normal. Hemoglobin (g/dL) Date Value 09/04/2021 12.2 05/23/2021 12.1 Hematocrit (%) Date Value 09/04/2021 39.3 05/23/2021 39.3 WBC (k/uL) Date Value 09/04/2021 8.71 05/23/2021 8.58 Platelet Count (k/uL) Date Value 09/04/2021 319 05/23/2021 335 Creatinine Date Value Ref Range Status 09/04/2021 0.77 0.58 - 0.96 mg/dL Final AST Date Value Ref Range Status 09/04/2021 25 13 - 35 U/L Final ALT Date Value Ref Range Status 09/04/2021 43 (H) 7 - 38 U/L Final Bilirubin, Total (mg/dL) Date Value 09/04/2021 0.2 Bilirubin, Conjug (mg/dL) Date Value 05/06/2016 <0.2 ABO/RH(D) (no units) Date Value 09/20/2019 O POSITIVE Antibody Screen (no units) Date Value 09/20/2019 NEG WBC (k/uL) Date Value 09/04/2021 8.71 RBC (m/uL) Date Value 09/04/2021 4.23 %DIG,%DBS Plan ASSESSMENT/PLAN: 1. Crohn's disease of small intestine without complication (HCC) - ICD9: 555.0, ICD10: K50.00 (primary diagnosis) This does seem to be confirmed via endoscopy and CT enterography, and she has had some improvementsto her symptoms with the initiation of Pentasa and budesonide. I think would be worthwhile to try more aggressive Crohn's medication regimen with the biologic medication since she does have some steno sis which may be resulting in her pain complaints. She is interested to go forward with more aggressive treatment is meeting with Dr. Sosa later this week 2. Umbilical hernia without obstruction or gangrene - ICD9: 553.1, ICD10: K42.9 We did discuss that if this is causing significant symptoms we could repair it, but considering that we are working with a new diagnosis of Crohn's disease I would recommend waiting on this for the time being to see how she responds to medications and if any further interventions are required for the Crohn's disease before committing to a hernia repair. Follow up: Return for For any new issues or concerns. Eddy Valencia M.D. Please Note: This office note has been created using [employer], a speech recognition software program, and may contain errors including punctuation, grammar, spelling, gender, and inappropriate words or phrases that pertain to the sytem. documented in this encounterOhiohealth [facility]04-22-2022 Miscellaneous Notes* Telephone Encounter - Isha Mcmillan LPN - 08/29/2021 8:55 AM EDT FMLA received via fax. 08/28/2021. * Telephone Encounter - Monae Ashley LPN - 08/26/2021 2:31 PM EDT Pt called and asking did you received her FMLA paperwork her employer faxed to you. Please let pt know if this has been received. Monae Ashley LPN * Telephone Encounter - Vane Malave APRN.CLIFTON - 08/21/2021 11:36 AM EDT Called patient to review CT results - She reports she is having intermittent abdominal pain that will take her breath away. She reports the pain on her right side and goes down to her rectum. The pain has been so severe that she had to call off and went to the urgent care. She has been on vacation for the last 5 days and 3 out of the 5 days she is having severe pain. She reports having normal BM - her bowels are no longer loose - having solid BM 3-4 times daily shedenies seeing blood. She reports she has faxed [place] paper work - I will look further into this. Thanks Vane Malave APRN.CLIFTON I will order consult to Eddy Valencia MD Patient has a upcoming appointment with * Telephone Encounter - Colette Sheehan RN - 08/20/2021 3:46 PM EDT Pt called in for provider to go over CT results. Please call and advise. * Telephone Encounter - Carin Broderick LPN - 08/18/2021 12:55 PM EDT Pt is calling in for an explanation of results for CT done 08/15/21. Pt reports the results are on MCbut pt does not understand results. Please review and advise. Carin Broderick LPN documented in this encounterOhiohealth [facility] Center04-09-2022 History of Present illness Narrative* Jesús Watkins APRN.CLIFTON - 08/16/2021 12:13 PM EDT Subjective HPI Nontoxic-appearing female presents urgent care chief plaint right side flank and abdominal pain. Duration of symptom last night. Associated symptoms sharp shooting right-sided flank/abdominal pain. Patient rates pain 7-9 out of 10. Patient states pain comes and goes but consistently states is a 7 out of 10. Did have a CAT scan done yesterday. Results indicated IMPRESSION: Hyperemia of terminal ileum consistent with distal ileitis. Narrowed distal aspect of the ileum consistent with endoscopic finding of a stricture. Fat-containing umbilical hernia Has used OTC medications this has helped some. Denies any fever vomiting. No rashes. Past medical history prescription medication use allergies reviewed. .Patient presents with: Pain: right side, x 1 day PAST MEDICAL HISTORY Diagnosis Date Anemia Asthma Impaired fasting glucose 09/2014 Miscarriage Unspecified asthma(493.90) PAST SURGICAL HISTORY Procedure Laterality Date CHOLECYSTECTOMY HX 2016 INSERTION OF IUD 06/11/2009 Mirena IUD REMOVAL (CERAMIC TILE SETTER DEPT)_*FL 02/2010 NEXPLANON INSERTION 03/19/2014,10/2015 left arm NEXPLANON REMOVAL 04/08/2017 PAST SURGICAL HISTORY OF Left 12/29/2017 ORIF medial and lateral malleolus of trimalleolar ankle fracture; Dr. Jeri Ramesh TYMPANOSTOMY LOCAL/TOPICAL ANESTHESIA ALLERGIES Morphine and Sudafed [Pseudoephedrine Hcl] MEDICATIONS Mesalamine (PENTASA) 500 mg CR capsule Take 2 capsules by mouth four times daily. budesonide, enteric coated (ENTOCORT EC) 3 mg 24 hr capsule Take 3 capsules by mouth once daily for30 days, THEN 2 capsules once daily for 30 days, THEN 1 capsule once daily. peg 3350-Electrolytes (GOLYTELY) 236-22.74-6.74 -5.86 gram suspension Refer to printed prep instructions from your provider. ferrous sulfate (SLOW FE) 140 mg (45 mg iron) TbER Take 1 tablet by mouth twice daily with meals. fluticasone [...] Take 1 capsule by mouth once daily. FAMILY HISTORY Problem Relation Age of [...] Social History Tobacco Use Smoking status: Never Smoker Smokeless tobacco: Never Used Vaping Use Vaping Use: Never used Substance Use Topics Alcohol use: No Drug use: No BP 118/80 Pulse 95 Temp 36.9 C (98.4 F) Resp 14 Wt 87.5 kg (192 lb 12.8 oz) LMP 04/15/2020 (Exact Date) SpO2 99% BMI 35.26 kg/m ROS Objective Physical Exam Significant abdominal pain with palpation to the right flank and lower quadrant current right. Withpresenting symptoms I recommended patient be seen the ED for further evaluation care. Patient verbalized understanding agrees with plan of care. Will be seen at local ED. documented in this encounterOhiohealth [facility]04-08-2022 NoteHNO ID: [id number] Author: RT Mounika(Ronald) Service: Radiology Author Type: Technologist Type: Progress Notes Filed: 08/15/2021 4:12 PM Note Text: Radiology Service Progress Note PATIENT NAME: Mary Guillen DATE OF SERVICE: August 15, 2021 TIME: 4:12 PM PATIENT IDENTITY VERIFICATION COMPLETED USING TWO (2) IDENTIFIERS: Name and Date of confirmed by patient verbally and Name and Date of confirmed by identification band. FALL SCREENING: Has the patient had 2 falls in the last year or 1 fall with injury or currently using an Ambulatory Assistive Device (Walker, Cane, Wheelchair, Crutches, etc.)? No PATIENT GENDER DATA: Female. status: : No status: NO. PATIENT RELEVANT IMPLANT DATA REVIEWED: Not Applicable RADIOLOGY DEPARTMENT: CT; Exam(s) Completed: Abdomen/Pelvis PERIPHERAL IV DATA: Site assessment: Clean,Dry and Intact, Site disposition Discontinued SIGNED BY: RT Mounika(Ronald) August 15, 2021 4:12 PMCleveland Clinic Union [id number] History of Present illness Narrative* VICKY Ribera) - 08/15/2021 5:00 PM EDT Radiology Service Progress Note PATIENT NAME: Mary Guillen DATE OF SERVICE: August 15, 2021 TIME: 4:12 PM PATIENT IDENTITY VERIFICATION COMPLETED USING TWO (2) IDENTIFIERS: Name and Date of confirmedby patient verbally and Name and Date of confirmed by identification band. FALL SCREENING: Has the patient had 2 falls in the last year or 1 fall with injury or currently using an Ambulatory Assistive Device (Walker, Cane, Wheelchair, Crutches, etc.)? No PATIENT GENDER DATA: Female. status: : No status: NO. PATIENT RELEVANT IMPLANT DATA REVIEWED: Not Applicable RADIOLOGY DEPARTMENT: CT; Exam(s) Completed: Abdomen/Pelvis PERIPHERAL IV DATA: Site assessment: Clean,Dry and Intact, Site disposition Discontinued SIGNED BY: RT Mounika(R) August 15, 2021 4:12 PM documented in this encounterOhiohealth [facility]ville [facility] Center04-05-2022 Miscellaneous Notes* Telephone Encounter - Noa Torres Ma - 08/12/2021 8:53 AM EDT Pt responded that letter was received. Encounter closed. Noa Torres Ma * Telephone Encounter - Noa Torres Ma - 08/11/2021 3:34 PM EDT Notified pt letter had been sent by PA and if needed we can fax letter for her. Pt to update office. Noa Torres Ma * Telephone Encounter - Magdalena Barroso APRN.CNP - 08/08/2021 1:40 PM EDT Letter written and sent to patient via [employer]. If she needs this printed and faxed, please let me know. Magdalena Barroso APRN.CNP * Telephone Encounter - Colette Sheehan RN - 08/08/2021 12:14 PM EDT Pt called in asking if provider could write her a return to work letter for Wednesday08/11/21. Please call and advise. * Telephone Encounter - Kaitlyn Elias LPN - 08/08/2021 9:36 AM EDT FMLA received and placed on Dr. Whiting's desk. Kaitlyn Elias LPN documented in this encounterOhiohealth [facility]ville [facility] Center03-28-2022 Miscellaneous Notes* Telephone Encounter - Isha Mcmillan LPN - 08/04/2021 9:48 AM EDT Form completed and faxed back to number listed on form. * Telephone Encounter - Isha Mcmillan LPN - 08/01/2021 10:17 AM EDT Needs 2 month follow up scheduled. documented in this encounterOhiohealth [facility]ville [facility] Center03-25-2022 Miscellaneous Notes* Telephone Encounter - Isha Mcmillan LPN - 08/01/2021 10:17 AM EDT Letter sent to patient. * Telephone Encounter - Vane Malave APRN.RECORDING ARTIST - 07/30/2021 5:07 PM EDT Called patient and reviewed results of EGD and Colonoscopy. Patient reports she is still having sharps pain in her abdomen. Discussed Dr.Mouchli ledbetter CTE. I have also added calprotectin, starting her on Entocort taper and Pentasa for 8 weeks. Will need to schedule a 2 month follow up. She also requested a light duty at this time due to the diarrhea and abdominal discomfort. I agreedto send a letter through for light duty for addition week until she can start medication. Vane Malave APRN.CLIFTON Vieira - please schedule patient a 2 month follow up - and * Telephone Encounter - Anupama Sharp RN - 07/29/2021 1:01 PM EDT Patient calls to check on results of colonoscopy from 07/23/2021 and reports today she had rectal bleeding with BM. She reports one time with formed BM. She said it was bright red in color, mixed withBM, and a large amount on the toilet tissue also bright red in color. Reviewed findings of internalhemorrhoids with patient and pending results of biopsies. Patient asking if she should be concernedbecause of bleeding. Please review and advise, Anupama Sharp RN documented in this encounterOhiohealth [facility] Center03-15-2016 History of Past illness Narrative* Problem Noted [...] of this encounter (statuses as of 08/01/2021) [facility] of Past illness Narrative* Problem Noted [...] of this encounter (statuses as of 08/04/2021) [facility] of Past illness Narrative* Problem Noted [...] of this encounter (statuses as of 08/12/2021) [facility] of Past illness Narrative* Problem Noted [...] of this encounter (statuses as of 08/16/2021) [facility] of Past illness Narrative* Problem Noted [...] of this encounter (statuses as of 08/16/2021) [facility] of Past illness Narrative* Problem Noted [...] of this encounter (statuses as of 08/16/2021) [facility] of Past illness Narrative* Problem Noted [...] of this encounter (statuses as of 09/15/2021) [facility] of Past illness Narrative* Problem Noted [...] of this encounter (statuses as of 09/17/2021) [facility] of Past illness Narrative* Problem Noted [...] of this encounter (statuses as of 10/02/2021) [facility] of Past illness Narrative* Problem Noted [...] of this encounter (statuses as of 11/05/2021) [facility] of Past illness Narrative* Problem Noted [...] of this encounter (statuses as of 11/19/2021) [facility] Past illness Narrative* Problem Noted [...] of this encounter (statuses as of 11/24/2021) [facility] of Past illness Narrative* Problem Noted [...] , antepartum 03/01/2015 10/31/2015 Overview: Boy on [facility] Obesity (BMI 30.0-34.9) 09/26/2014 10/31/19 16 Supervision of normal first 01/29/2011 02/08/2012 Routine general medical exam ination at a health care facility 01/13/2008 04/10/2011 documented as of this encounter (statuses as of 12/03/2021) [facility] of Past illness Narrative* Problem Noted [...] of this encounter (statuses as of 12/09/2021) [facility] illness Narrative* Problem Noted [...] of this encounter (statuses as of 01/02/2022) [facility] illness Narrative* Problem Noted [...] of this encounter (statuses as of 01/05/2022) [facility] Narrative* Problem Noted [...] of this encounter (statuses as of 01/07/2022) [facility] Narrative* Problem Noted [...] of this encounter (statuses as of 01/07/2022) [facility] Narrative* Problem Noted [...] of this encounter (statuses as of 01/08/2022) [facility] illness Narrative* Problem Noted [...] , antepartum 03/01/2015 10/31/2015 Overview: Boy on [facility] Obesity (BMI 30.0-34.9) 09/26/2014 10/31/19 16 Supervision of normal first 01/29/2011 02/08/2012 Routine general medical exam ination at a health care facility 01/13/2008 04/10/2011 documented as of this encounter (statuses as of 01/09/2022) [facility] Narrative* Problem Noted [...] of this encounter (statuses as of 01/11/2022) [facility] Narrative* Problem Noted [...] , antepartum 03/01/2015 10/31/2015 Overview: Boy on [facility] Obesity (BMI 30.0-34.9) 09/26/2014 10/31/19 16 Supervision of normal first 01/29/2011 02/08/2012 Routine general medical exam ination at a health care facility 01/13/2008 04/10/2011 documented as of this encounter (statuses as of 01/20/2022) [facility] Narrative* Problem Noted [...] of this encounter (statuses as of 01/22/2022) [facility] Narrative* Problem Noted [...] of this encounter (statuses as of 01/23/2022) [facility] Narrative* Problem Noted [...] of this encounter (statuses as of 01/26/2022) [facility] Narrative* Problem Noted [...] of this encounter (statuses as of 01/26/2022) [facility] Narrative* Problem Noted [...] of this encounter (statuses as of 01/28/2022) [facility] Narrative* Problem Noted [...] of this encounter (statuses as of 02/06/2022) [facility] Narrative* Problem Noted [...] of this encounter (statuses as of 02/09/2022) [facility] Narrative* Problem Noted [...] of this encounter (statuses as of 02/18/2022) [facility] Narrative* Problem Noted [...] of this encounter (statuses as of 03/24/2022) [facility] Narrative* Problem Noted [...] of this encounter (statuses as of 04/28/2022) [facility] Narrative* Problem Noted [...] of this encounter (statuses as of 06/17/2022) [facility] Narrative* Problem Noted [...] of this encounter (statuses as of 07/15/2022) [facility] Narrative* Problem Noted [...] of this encounter (statuses as of 09/23/2022) [facility] Narrative* Problem Noted [...] of this encounter (statuses as of 10/26/2022) [facility] Narrative* Problem Noted [...] of this encounter (statuses as of 10/29/2022) [facility] Narrative* Problem Noted [...] of this encounter (statuses as of 11/02/2022) [facility] Narrative* Problem Noted [...] of this encounter (statuses as of 11/03/2022) [facility] Narrative* Problem Noted [...] , antepartum 03/01/2015 10/31/2015 Overview: Boy on [employer] Obesity (BMI 30.0-34.9) 09/26/201410/09 Supervision of normal first 01/29/2011 02/08/2012 Routine general medical exam ination at a health care facility 01/13/2008 04/10/2011 documented as of this encounter (statuses as of 12/24/2022) [facility] Narrative* Problem Noted [...] , antepartum 03/01/2015 10/31/2015 Overview: [facility] on [facility] [facility] Obesity (BMI 30.0-34.9) 09/26/201410/09 Supervision of normal first 01/29/2011 02/08/2012 Routine general medical exam ination at a health care facility 01/13/2008 04/10/2011 documented as of this encounter (statuses as of 12/29/2022) [facility] Narrative* Problem Noted [...] antepartum 03/01/2015 10/31/2015 Overview: [facility] Obesity (BMI 30.0-34.9) 09/26/201410/09 Supervision of normal first 01/29/2011 02/08/2012 Routine general medical exam ination at a health care facility 01/13/2008 04/10/2011 documented as of this encounter (statuses as of 01/01/2023) [facility] Narrative* Problem Noted [...] on [facility] Obesity (BMI 30.0-34.9) 09/26/2014 06/07/2015 Supervision of normal first 01/29/2011 02/08/2012 Routine general medical exam ination at a doctors hospital care facility 01/13/2008 04/10/2011 documented as of this encounter (statuses as of 03/17/2023) [facility] Diagnosis Generalized abdominal pain Abdominal pain, generalized documented in this encounter [facility]* Diagnosis Inflammatory bowel disease Other and unspecified noninfectious gastroenteritis and colitis documented in this encounter [facility]* Diagnosis Right lower quadrant abdominal pain- Primary Abdominal pain, right lower quadrant documented in this encounter [facility]* Diagnosis Crohn's disease of small intestine with other complication (HCC)- Primary documented in this encounter [facility]* Diagnosis Crohn's disease of small intestine without complication (HCC)- Primary Regional enteritis of small intestine Umbilical hernia without obstruction or gangrene Umbilical hernia without mention of obstruction or gangrene documented in this encounter [facility]* Diagnosis Pharyngitis, unspecified etiology- Primary URI, acute Acute upper respiratory infections of unspecified site documented in this encounter [facility]* Diagnosis Encounter for Depo-Provera contraception- Primary Surveillance of other previously prescribed contraceptive method Encounter for management and injection of depo-Provera Surveillance of other previously prescribed contraceptive method [facility] Diagnosis Sterilization consult- Primary Other general counseling and advice for contraceptive management documented [facility] this encounter [facility]* Diagnosis Sore throat- Primary Acute pharyngitis Exposure to COVID-19 virus documented [facility] this encounter [facility]* Diagnosis Crohn's disease of ileum with other complication (HCC)- Primary Encounter for screening for viral disease documented in this encounter [facility]* Diagnosis Crohn's disease of ileum with other complication (HCC)- Primary documented [facility]* Diagnosis Generalized abdominal pain- Primary Abdominal pain, generalized Periumbilical hernia Umbilical hernia without mention of obstruction or gangrene [facility] Diagnosis Periumbilical hernia- Primary Umbilical hernia without mention of obstruction or gangrene [facility] Diagnosis Sterilization consult- Primary Other general counseling and advice for contraceptive management Umbilical hernia without obstruction or gangrene Umbilical hernia without mention of obstruction or gangrene Post-op pain Other acute postoperative pain documented in this encounter [facility] note* Diagnosis Periumbilical hernia Umbilical hernia without mention of obstruction or gangrene documented [facility] this [facility] noteNo assessment information availableWDoctors Hospital Work Phone: [facility]* Diagnosis Crohn's disease of ileum with other complication (HCC)- Primary [facility] Diagnosis Crohn's disease of ileum with other complication (HCC)- Primary [facility]* Diagnosis Post-operative state- Primary Other postprocedural status Need for influenza vaccination Need for prophylactic vaccination and inoculation against influenza [facility] Diagnosis Crohn's disease of ileum with other complication (HCC)- Primary [facility] Diagnosis Crohn's disease of ileum with other complication (HCC)- Primary [facility] Diagnosis Crohn's disease without complication, unspecified gastrointestinal tract location (HCC)- Primary [facility] Diagnosis Crohn's disease of ileum with other complication (HCC)- Primary Encounter for screening for viral disease documented [facility] Diagnosis Crohn's disease of ileum with other complication (HCC)- Primary [facility] Diagnosis Wellness examination- Primary Encounter for immunization Need for other specified prophylactic vaccination against single bacterial disease Vitamin D deficiency Unspecified vitamin D deficiency Crohn's disease without complication, unspecified gastrointestinal tract location (HCC) Iron deficiency anemia, unspecified iron deficiency anemia type Screening for lipid disorders documented in this encounter [facility] note* Diagnosis Crohn's disease of ileum with other complication (HCC)- Primary documented in this encounter [facility] note* Diagnosis Onset Date Resolution Status Crohn's disease acute [facility] Work Phone: Evaluation note* Diagnosis Sore throat- Primary Acute pharyngitis URI, acute Acute upper respiratory infections of unspecified site [facility] Diagnosis Encounter for gynecological examination (general) (routine) without abnormal findings- Primary History of gestational diabetes Personal history of gestational diabetes Vaginal discharge Leukorrhea, not specified as infective [facility]* Diagnosis Bacterial vaginosis- Primary Vaginitis and vulvovaginitis, unspecified documented in this encounter [facility] note* Diagnosis Sore throat- Primary Acute pharyngitis Left ear pain Otalgia, unspecified [facility] Diagnosis URI, acute- Primary Acute upper respiratory infections of unspecified site Sore throat Acute pharyngitis Acute cough [facility]* Diagnosis Wellness examination- Primary Screening for depression Encounter for screening examination for other mental health and behavioral disorders Iron deficiency anemia, unspecified iron deficiency anemia type URI, acute Acute upper respiratory infections of unspecified site Persistent cough Cough Screening for diabetes mellitus Screening for lipid disorders Screening for thyroid disorder Encounter for vitamin deficiency screening Screening for other and unspecified endocrine, nutritional, metabolic, and immunity disorders documented [facility] this [facility]* Diagnosis URI, acute Acute upper respiratory infections of unspecified site Persistent cough Cough documented [facility] this [facility]* Diagnosis Acute pain of left knee- Primary documented [facility] Diagnosis Urinary frequency- Primary Urinary tract infection with hematuria, site unspecified [facility]* Diagnosis Other microscopic hematuria- Primary Urine leukocytes Other cells and casts in urine Crohn's disease with complication, unspecified gastrointestinal tract location (HCC) Other iron deficiency anemia Vitamin D deficiency Unspecified vitamin D deficiency Obesity, Class I, BMI 30-34.9 Obesity, unspecified [facility]* Diagnosis Onset Date Resolution Status Admit Date Crohn's disease acute February 072024 2:30pm Dysphagia acute February 23, 2025 2:30pm [facility] Work Phone: History and physical note Author Rey Friend [facility] April 12, 2023 6:37am Note Date/Time April 12, 2023 6 :37am [facility] Medical Records Department [address] [place] [address] History & Physical Exam 04/12/23 0636 MR#: [id number] Acct: [id number] Name: MARY GUILLEN Rep #:[id number] : 1990 32 From: Rey Friend DO PCP: Dr. Drake Whiting, DO Status:[facility] Location: [place] [address] History and Physical Date of Admission: 04/12/23 MARY GUILLEN, is a 32 F who presents to the office today for follow up. [facility] established for management of Crohn?s disease. LV 12.03.21 indicates?Pentasa QID and entocort taper?started with improvement of bowel irregularity.?Start Remicade infusions?following biochemical and tubal ligation 01.15.22?EGD and colonoscopy 07.23.21?records requested from [facility]. OV indicates stricture.?CT enterography 08.15.21?mild circumferential hyperenhancement of TI with narrowing of distal TI, caliber 6mm? ? 09.26.22/02.01.23 requested egd/colon and gi records? OV 02.22.23 Pt previously seeing GI in [place]. Would like to establish here due to distance. moderately controlled with Remicaide, Pentasa and as needed Dicyclomine. Still has some abdominal pain and diarrhea. Adjusting diet does help. Sx get worse leading up to next infusion. She underwent EGD and colonoscopy approximately 1 week ago. However her prep was very poor so she is back for repeat colonoscopy today. ? ROS Const Constitutional: No fatigue ENT ENT: No difficulty swallowing Gastro GI: No abdominal pain, belching, bloating, change in bowel habits, change in stool character, coffee ground emesis, constipation, cramping, diarrhea, heartburn, difficulty swallowing, feeling full early, excessive flatus, incontinent of stools, Vomiting blood/hematemesis, Blood in stool, loose stools,Black,tarry stools, nausea/dyspepsia, pain with swallowing, vomiting or other Musc Musculoskeletal: No joint pain Skin Skin: No yellowing of the eye or itchy eyes Psych Psychiatric: No anxiety and No depression Endo Endocrine: No fatigue Aller/Imm Allergy/Immunologic: No itchy eyes Estevan/Lymp Hematologic/Lymphatic: Positive for easy bruising; No easy bleeding Exam Const General: cooperative, healthy appearing, uncomfortable and no acute distress Nutritional Appearance: well nourished Orientation: alert, awake and oriented x3 [facility] Head: normal to inspection Ears: hearing grossly normal bilaterally, external ears normal, TM's normal bilaterally and EAC's normal Nose: external nose normal, nares normal, septum normal and nasal discharge clear Face and sinus: normal facial exam, sinuses nontender and face symmetric Mouth: oral mucosae normal, lip normal, tongue normal and oropharynx normal Throat: posterior oropharynx normal, tonsils normal, uvula midline and no postnasal drainage Eyes General: appearance normal, both eyes and all related structures Neck Neck: normal visual inspection, full ROM, no lymphadenopathy, no meningeal signsand supple Neck mass: No Thyroid: thyroid normal Lymphatic: no lymphadenopathy noted Chest Chest palpation & inspection: normal inspection of the chest Resp Effort & Inspection: normal respiratory effort, able to speak in complete sentences, symmetric chest movement and cough Quality of cough: dry (Nonproductive in office today) Auscultation: Bilateral: Clear to Auscultation Cardio Palpation: normal PMI Rate: tachycardic Rhythm: regular rhythm Heart Sounds: S1 normal, S2 normal, no gallops, no murmurs and no rubs Pulses: radial pulses present GI Inspection: normal to inspection Palpation: soft and no hepatosplenomegaly Skin General: no rashes or lesions noted Neuro General: patient alert, patient awake, patient oriented x3 and gait normal Cognition: normal cognition Speech: speech normal Gait: normal gait Motor: muscle tone normal throughout Sensory Exam: no sensory deficits noted Psych Appearance: grossly normal Mental Status: mental status grossly normal Mood: congruent mood Affect: normal affect Speech and Movement: speech and movement normal Attitude: cooperative Thought Process: normal Thought Content: normal Judgment: judgment good Quality Reporting Tobacco Screening ([facility] 138) Smoking Status: Never smoker Assessment and Plan Assessment and Plan (1) Crohn's disease: Status: Acute Qualifiers: Gastrointestinal tract location: small and large intestine Digestive disease complication type: without complication Qualified Code(s): K50.80 - Crohn's disease of both small and large intestine without complications Plan: 32-year-old with past medical history of Crohn's disease involving the small intestines but typically the ileum and the right side of the colon including thececum, ileocecal valve and ascending colon that was seen previously on colonoscopy. She had a CT enterography that also showed some possible narrowingconsistent with inflammatory Crohn's disease of the terminal ileum. She does not have any extraintestinal manifestations of Crohn's disease including no findings, pancreatic findings, liver findings, skin findings. She is not havingany night sweats or fatigue. She does not know if she has had a updated hepatitis B or Tuberculosis screening. She takes Remicade every 8 weeks at a 5 mg/kg dose and she takes Pentasa 4 times a day at a dose of 500 mg. She notices that she starts getting symptoms With her bowel disease including bloating, cramping, nausea and worsening diarrhea about a week prior to her needing her infusion of Remicade. We will get biochemical testing, capsule endoscopy, possible imaging with MRI enterography or repeat CT enterography. We will also get drug levels of Remicade and antibody levels. Further recommendations to follow. Orders: Orders CBC W/Diff, Automated Today K50.90 - Crohn's disease, unspecified, without complications Ferritin Today K50.90 - Crohn's disease, unspecified, without complications NEIL + Protein Elect, Serum Today K50.90 - Crohn's disease, unspecified, without complications Iron Binding Capacity,Total Today K50.90 - Crohn's disease, unspecified, withoutcomplications LDH Today K50.90 - Crohn's disease, unspecified, without complications Retic Panel Count Today K50.90 - Crohn's disease, unspecified, without complications Iron Today K50.90 - Crohn's disease, unspecified, without complications ANCA Today K50.90 - Crohn's disease, unspecified, without complications Celiac Disease Profile Today K50.90 - Crohn's disease, unspecified, without complications Comprehensive Metabolic Profil Today K50.90 - Crohn's disease, unspecified, without complications CRP Today K50.90 - Crohn's disease, unspecified, without complications Erythrocyte Sed Rate Today K50.90 - Crohn's disease, unspecified, without complications Hepatitis Panel Acute Today K50.90 - Crohn's disease, unspecified, without complications Immunoglobulin M Today K5 - Crohn's disease, unspecified, without complications Immunoglobulin G Today K5 - Crohn's disease, unspecified, without complications Immunoglobulin E Today K5 - Crohn's disease, unspecified, without complications Immunoglobulin A Today - Crohn's disease, unspecified, without complications Miscellaneous Lab Procedure Today K5 - Crohn's disease, unspecified, withoutcomplications Amylase Today - Crohn's disease, unspecified, without complications Fecal Fat, Qualitative Today - Crohn's disease, unspecified, without complications Pancreatic Elastase, Fecal Today - Crohn's disease, unspecified, without complications Lipase Today - Crohn's disease, unspecified, without complications Stool Lactoferrin/WBC Today K5 - Crohn's disease, unspecified, without complications, K58.9 - Irritable bowel syndrome without diarrhea Calprotectin, Stool Today - Crohn's disease, unspecified, without complications JEY Comprehensive Panel Today - Crohn's disease, unspecified, without complications Anti-Mitochondrial AB Today K5 - Crohn's disease, unspecified, without complications Hemoglobin A1c Today K5 - Crohn's disease, unspecified, without complications ENTERIC PATHOGEN PANEL STOOL Today - Crohn's disease, unspecified, without complications, K58.9 - Irritable bowel syndrome without diarrhea CDIFF (PCR) Today - Crohn's disease, unspecified, without complications OVA+PARA w/Giardia EIA [id number] Today - Crohn's disease, unspecified, without complications Thyroid Stim Hormone (TSH) Today K5 - Crohn's disease, unspecified, without complications Vitamin D 1,25-Dihydroxy Today - Crohn's disease, unspecified, without complications Folates, (Folic Acid) Today - Crohn's disease, unspecified, without complications Vitamin B12 Today K5 - Crohn's disease, unspecified, without complications Miscellaneous Lab Procedure 2 Today - Crohn's disease, unspecified, without complications Quantiferon TB-Gold+ Today - Crohn's disease, unspecified, without complications Coding Level of Care Code Off vis,new,level 4 Diagnoses Crohn's disease of both small and large intestine without complication K50.80 Gastrointestinal tract location: small and large intestine Digestive disease complication type: without complication I have examined the patient and the H&P has been reviewed. There are no clinicalchanges since date of exam. 04/12/23 0637 <Electronically signed by Rey Alcaraz DO> Cosigner Signature (if applicable): CC: Dr. Drake Whiting, ; Rey Alcaraz DO~ Signed [facility] Work Phone: Reason for referral (narrative)No reason for referral information availableWDoctors Hospital Work Phone: Recjtr for visit Narrative* Diagnostic Procedure Only (Urgent) - Closed Specialty Diagnoses / Procedures Referred By Contac t Referred To Contact XR IMAGING Diagnoses Acute pain of left knee Procedures XR KNEE LIMITED 2V AP/LAT LEFT RADIOLOGIC EXAMINATION KN[place] 1/[place] [address] [place] [address] Phone: tel: fax: [place] [address] Referral ID Status Reason Start Date Expiration Date V isits Requested Visits Authorized [id number] Closed Auto-Generate d Referral 11/21/2024 12/21/2025 1 1 [facility] Summary Purpose Family History No Family History Records FoundNo Family History Records FoundNo Family History Records FoundNo Family History Records FoundNo Family History Records FoundNo Family History Records Found Advance Directives No Advanced Directives Records FoundDocuments on File Type Date Recorded 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 Advance Directive(s) 07/23/2021 12:43 PM Advance Directive(s) 01/07/2016 3:23 PM Documents on File Type Date Recorded 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 Advance Directive(s) 07/23/2021 12:43 PM Advance Directive(s) 01/07/2016 3:23 PM Advance Directive Response Recorded Date/ Time Living Will No January 08 11:17am Power of Photogrammetry Airplane Pilot No January 08, 2022 11:17am Advance Directive Response Recorded Date/ Time Name of Medical Power of Photogrammetry Airplane Pilot MOTHER April 05, 2023 8:35am Name of Medical Power of Photogrammetry Airplane Pilot April 07, 2023 12:38pm Living Will Yes April 07, 2 023 12:38pm Power of Photogrammetry Airplane Pilot Yes April 07, 2023 12:38pm Advance Directive Response Recorded Date/ Time Living Will No April 16 6:19pm Power of Photogrammetry Airplane Pilot No April 16, 2023 6:19pm Name of Medical Power of Photogrammetry Airplane Pilot MOTHER April 05, 2023 8:35am Name of Medical Power of Photogrammetry Airplane Pilot April 07, 2023 12:38pm Reason for Referral Specialty Diagnoses / Procedures Referred By Contac t Referred To Contact CT IMAGING Diagnoses Inflammatory bowel disease Procedures CT ENTEROGRAPHY W IVCON CT ABD & PELVIS W/CONTRAST Kath Sosa MD [address] [place] [address] Ct Imaging Referral ID Status Reason Start Date Expiration Date V isits Requested Visits Authorized [id number] Closed Auto-Generate d Referral 07/23/2021 09/14/2021 1 1 Specialty Diagnoses / Procedures Referred By Contac t Referred To Contact General Surgery Diagnoses Crohn's disease of small intestine with other complication (HCC) Procedures CONSULT TO GENERAL SURGERY OFFICE/OUTPATIENT [facility] 60-74 MINUTES Vane Malave WARP PICKER.RECORDING ARTIST [address] [place] [address] Referral ID Status Reason Start Date Expiration Date Visits Requested Visits Authorized [id number] Authorized PCP Requested Referral 08/21/2021 08/21/2022 1 1 Specialty Diagnoses / Procedures Referred By Contac t Referred To Contact Diagnoses Generalized abdominal pain Toñito Johnson, WARP PICKER.RECORDING ARTIST [address] [place] [address] Referral ID Status Reason Start Date Expiration Date Visits Re quested Visits Authorized [id number] Closed 1 1 Specialty Diagnoses / Procedures Referred By Contac t Referred To Contact General Surgery Diagnoses Periumbilical hernia Procedures CONSULT TO GENERAL SURGERY OFFICE/OUTPATIENT [facility] MDM 60-74 MINUTES Toñito Johnson, WARP PICKER.RECORDING ARTIST [address] [place] [address] Referral ID Status Reason Start Date Expiration Date Visits Requested Visits Authorized [id number] Authorized PCP Requested Referral 01/05/2022 01/05/2023 1 1 Specialty Diagnoses / Procedures Referred By Contac t Referred To Contact Diagnoses Post-op pain Anina Redd MD [address] [place] [address] Referral ID Status Reason Start Date Expiration Date Visits Re quested Visits Authorized [id number] Closed 1 1 Specialty Diagnoses / Procedures Referred By Contac t Referred To Contact Gastroenterology Diagnoses Crohn's disease without complication, unspecified gastrointestinal tract location (HCC) Procedures CONSULT TO GASTROENTEROLOGY OFFICE/OUTPATIENT [facility] 60-74 MINUTES Radha Craig PA-C [address] [place] [address] Referral ID Status Reason Start Date Expiration Date Visits Requested Visits Authorized [id number] Pending Review PCP Requested Referral 09/23/2022 09/23/2023 1 1 Specialty Diagnoses / Procedures Referred By Contac t Referred To Contact Diagnoses Crohn's disease of ileum with other complication (HCC) Tia Osei PA-C [address] [place] [address] Referral ID Status Reason Start Date Expiration Date Visits Re quested Visits Authorized [id number] Closed 1 1 Specialty Diagnoses / Procedures Referred By Contac t Referred To Contact Diagnoses URI, acute Persistent cough Toñito Johnson, WARP PICKER.RECORDING ARTIST [address] [place] [address] Referral ID Status Reason Start Date Expiration Date Visits Re quested Visits Authorized [id number] Closed 1 1 Health Concerns Infection Onset [...] 3:30 PM EDT 150 mg Buttocks, Left Given 08/01/2021 10:01 AM EDT 150 mg B uttocks, Right Given 02/07/2021 4:09 PM EDT 150 mg Bu ttocks, Right Inactive Administered Medications - up to 3 [...] Administer with 0.2 micron filter., Medication Substitution: [facility] preferred product has been replaced with the [...] Administer with 0.2 micron filter., Medication Substitution: [facility] preferred product has been replaced with the insurance mandated product New Bag/Syringe/Bottle 12/28/2022 1:43 PM EDT 400 mg 250 mL/hr Chief Complaint and Reason for Visit Chief Complaint LAP BILATERAL SALPIN G Chief Complaint Consult Reason for Visit Crohn's disease Chief Complaint Consult Cap endo Reason for Visit Crohn's disease Chief Complaint Consult Cap endo ABD PAIN Reason for Visit Crohn's disease Chief Complaint Consult Cap endo ABD PAIN STELARA 390MG Reason for Visit Crohn's disease Chief Complaint Admit Date Injection July 10, 2024 11:0 6am 6 M FU September 04, 2024 1:4 5pm injection September 06, 2024 2:1 6pm CROHNS September 14, 2024 4:53pm Reason for Visit Admit Date Crohn's disease September 04, 2024 1:4 5pm Dysphagia September 04, 2024 1:4 5pm Chief Complaint Admit Date Injection July 10, 2024 11:0 6am 6 M FU September 04, 2024 1:4 5pm injection September 06, 2024 2:1 6pm CROHNS September 14, 2024 4:53pm 300MG ENTYVIO September 28, 2024 1:04p m 300MG ENTYVIO October 12, 2024 9:14a m Chief Complaint Admit Date 6 M FU September 04, 2024 1:4 5pm injection September 06, 2024 2:1 6pm CROHNS September 14, 2024 4:53pm 300MG ENTYVIO September 28, 2024 1:04p m 300MG ENTYVIO October 12, 2024 9:14a m 300MG ENTYVIO November 09, 2024 12:04 pm Chief Complaint Admit Date 6 M FU September 04, 2024 1:4 5pm injection September 06, 2024 2:1 6pm CROHNS September 14, 2024 4:53pm 300MG ENTYVIO September 28, 2024 1:04p m 300MG ENTYVIO October 12, 2024 9:14a m 300MG ENTYVIO November 09, 2024 12:04 pm INT LAB ORDERS December 21, 2024 3: 09pm Chief Complaint Admit Date injection September 06, 2024 2:1 6pm CROHNS September 14, 2024 4:53pm 300MG ENTYVIO September 28, 2024 1:04p m 300MG ENTYVIO October 12, 2024 9:14a m 300MG ENTYVIO November 09, 2024 12:04 pm INT LAB ORDERS December 21, 2024 3: 09pm 300MG ENTYVIO January 02, 2025 2: 31pm Chief Complaint Admit Date 300MG ENTYVIO November 09, 2024 12:04 pm INT LAB ORDERS December 21, 2024 3: 09pm 300MG ENTYVIO January 02, 2025 2: 31pm 5 M FU/Crohn's disease/ February 23 2:30pm 300MG ENTYVIO February 27, 2025 1 :44pm Reason for Visit Admit Date Crohn's disease February 23, 2025 2 :30pm Dysphagia February 23, 2025 2 :30pm Chief Complaint Admit Date INT LAB ORDERS December 21, 2024 3: 09pm 300MG ENTYVIO January 02, 2025 2: 31pm 5 M FU/Crohn's disease/ February 23 2:30pm 300MG ENTYVIO February 27, 2025 1 :44pm Additional Source Comments INFORMATION SOURCE (unrecogn ized section and content) DATE CREATED AUTHOR 05/09/2018 [facility] ([place]) DATE CREATED AUTHOR AUTHOR'S ORGANIZ ATION 09/22/2019 [facility] DATE CREATED AUTHOR AUTHOR'S ORGANIZ ATION 08/18/2021 [facility] DATE CREATED AUTHOR AUTHOR'S ORGANIZ ATION 09/19/2021 [facility] DATE CREATED AUTHOR AUTHOR'S ORGANIZ ATION 02/25/2025 [facility] DATE CREATED AUTHOR AUTHOR'S ORGANIZ ATION 03/21/2025 [facility] Source Comments (unrecognize d section and content) In the event this informatio n is protected by the Federal Confidentiality of Alcohol and Drug Abuse Patient Records regulations: The Federal rules restrict any use of the information to criminally investigate or prosecute any alcohol or drug abuse patient.[facility] CenterIn the event this information is protected by the Federal Confidentiality of Alcohol and Drug Abuse Patient Records regulations: The Federal rules restrict any use of the information to criminally investigate or prosecute any alcohol or drug abuse patient.[facility] CenterIn the event this information is protected by the Federal Confidentiality of Alcohol and Drug Abuse Patient Records regulations: The Federal rules restrict any use of the information to criminally investigate or prosecute any alcohol or drug abuse patient.[facility] CenterIn the event this information is protected by the Federal Confidentiality of Alcohol and Drug Abuse Patient Records regulations: The Federal rules restrict any use of the information to criminally investigate or prosecute any alcohol or drug abuse patient.[facility] CenterIn the event this information is protected by the Federal Confidentiality of Alcohol and Drug Abuse Patient Records regulations: The Federal rules restrict any use of the information to criminally investigate or prosecute any alcohol or drug abuse patient.[facility] CenterIn the event this information is protected by the Federal Confidentiality of Alcohol and Drug Abuse Patient Records regulations: The Federal rules restrict any use of the information to criminally investigate or prosecute any alcohol or drug abuse patient.[facility] CenterIn the event this information is protected by the Federal Confidentiality of Alcohol and Drug Abuse Patient Records regulations: The Federal rules restrict any use of the information to criminally investigate or prosecute any alcohol or drug abuse patient.[facility] CenterIn the event this information is protected by the Federal Confidentiality of Alcohol and Drug Abuse Patient Records regulations: The Federal rules restrict any use of the information to criminally investigate or prosecute any alcohol or drug abuse patient.[facility] CenterIn the event this information is protected by the Federal Confidentiality of Alcohol and Drug Abuse Patient Records regulations: The Federal rules restrict any use of the information to criminally investigate or prosecute any alcohol or drug abuse patient.[facility] CenterIn the event this information is protected by the Federal Confidentiality of Alcohol and Drug Abuse Patient Records regulations: The Federal rules restrict any use of the information to criminally investigate or prosecute any alcohol or drug abuse patient.[facility] CenterIn the event this information is protected by the Federal Confidentiality of Alcohol and Drug Abuse Patient Records regulations: The Federal rules restrict any use of the information to criminally investigate or prosecute any alcohol or drug abuse patient.[facility] CenterIn the event this information is protected by the Federal Confidentiality of Alcohol and Drug Abuse Patient Records regulations: The Federal rules restrict any use of the information to criminally investigate or prosecute any alcohol or drug abuse patient.[facility] CenterIn the event this information is protected by the Federal Confidentiality of Alcohol and Drug Abuse Patient Records regulations: The Federal rules restrict any use of the information to criminally investigate or prosecute any alcohol or drug abuse patient.[facility] CenterIn the event this information is protected by the Federal Confidentiality of Alcohol and Drug Abuse Patient Records regulations: The Federal rules restrict any use of the information to criminally investigate or prosecute any alcohol or drug abuse patient.[facility] CenterIn the event this information is protected by the Federal Confidentiality of Alcohol and Drug Abuse Patient Records regulations: The Federal rules restrict any use of the information to criminally investigate or prosecute any alcohol or drug abuse patient.[facility] CenterIn the event this information is protected by the Federal Confidentiality of Alcohol and Drug Abuse Patient Records regulations: The Federal rules restrict any use of the information to criminally investigate or prosecute any alcohol or drug abuse patient.[facility] CenterIn the event this information is protected by the Federal Confidentiality of Alcohol and Drug Abuse Patient Records regulations: The Federal rules restrict any use of the information to criminally investigate or prosecute any alcohol or drug abuse patient.[facility] CenterIn the event this information is protected by the Federal Confidentiality of Alcohol and Drug Abuse Patient Records regulations: The Federal rules restrict any use of the information to criminally investigate or prosecute any alcohol or drug abuse patient.[facility] CenterIn the event this information is protected by the Federal Confidentiality of Alcohol and Drug Abuse Patient Records regulations: The Federal rules restrict any use of the information to criminally investigate or prosecute any alcohol or drug abuse patient.[facility] CenterIn the event this information is protected by the Federal Confidentiality of Alcohol and Drug Abuse Patient Records regulations: The Federal rules restrict any use of the information to criminally investigate or prosecute any alcohol or drug abuse patient.[facility] CenterIn the event this information is protected by the Federal Confidentiality of Alcohol and Drug Abuse Patient Records regulations: The Federal rules restrict any use of the information to criminally investigate or prosecute any alcohol or drug abuse patient.[facility] CenterIn the event this information is protected by the Federal Confidentiality of Alcohol and Drug Abuse Patient Records regulations: The Federal rules restrict any use of the information to criminally investigate or prosecute any alcohol or drug abuse patient.[facility] CenterIn the event this information is protected by the Federal Confidentiality of Alcohol and Drug Abuse Patient Records regulations: The Federal rules restrict any use of the information to criminally investigate or prosecute any alcohol or drug abuse patient.[facility] CenterIn the event this information is protected by the Federal Confidentiality of Alcohol and Drug Abuse Patient Records regulations: The Federal rules restrict any use of the information to criminally investigate or prosecute any alcohol or drug abuse patient.[facility] CenterIn the event this information is protected by the Federal Confidentiality of Alcohol and Drug Abuse Patient Records regulations: The Federal rules restrict any use of the information to criminally investigate or prosecute any alcohol or drug abuse patient.[facility] CenterIn the event this information is protected by the Federal Confidentiality of Alcohol and Drug Abuse Patient Records regulations: The Federal rules restrict any use of the information to criminally investigate or prosecute any alcohol or drug abuse patient.[facility] CenterIn the event this information is protected by the Federal Confidentiality of Alcohol and Drug Abuse Patient Records regulations: The Federal rules restrict any use of the information to criminally investigate or prosecute any alcohol or drug abuse patient.[facility] CenterIn the event this information is protected by the Federal Confidentiality of Alcohol and Drug Abuse Patient Records regulations: The Federal rules restrict any use of the information to criminally investigate or prosecute any alcohol or drug abuse patient.[facility] CenterIn the event this information is protected by the Federal Confidentiality of Alcohol and Drug Abuse Patient Records regulations: The Federal rules restrict any use of the information to criminally investigate or prosecute any alcohol or drug abuse patient.[facility] CenterIn the event this information is protected by the Federal Confidentiality of Alcohol and Drug Abuse Patient Records regulations: The Federal rules restrict any use of the information to criminally investigate or prosecute any alcohol or drug abuse patient.[facility] CenterIn the event this information is protected by the Federal Confidentiality of Alcohol and Drug Abuse Patient Records regulations: The Federal rules restrict any use of the information to criminally investigate or prosecute any alcohol or drug abuse patient.[facility] CenterIn the event this information is protected by the Federal Confidentiality of Alcohol and Drug Abuse Patient Records regulations: The Federal rules restrict any use of the information to criminally investigate or prosecute any alcohol or drug abuse patient.[facility] CenterIn the event this information is protected by the Federal Confidentiality of Alcohol and Drug Abuse Patient Records regulations: The Federal rules restrict any use of the information to criminally investigate or prosecute any alcohol or drug abuse patient.[facility] CenterIn the event this information is protected by the Federal Confidentiality of Alcohol and Drug Abuse Patient Records regulations: The Federal rules restrict any use of the information to criminally investigate or prosecute any alcohol or drug abuse patient.[facility] CenterIn the event this information is protected by the Federal Confidentiality of Alcohol and Drug Abuse Patient Records regulations: The Federal rules restrict any use of the information to criminally investigate or prosecute any alcohol or drug abuse patient.[facility] CenterIn the event this information is protected by the Federal Confidentiality of Alcohol and Drug Abuse Patient Records regulations: The Federal rules restrict any use of the information to criminally investigate or prosecute any alcohol or drug abuse patient.[facility] CenterIn the event this information is protected by the Federal Confidentiality of Alcohol and Drug Abuse Patient Records regulations: The Federal rules restrict any use of the information to criminally investigate or prosecute any alcohol or drug abuse patient.[facility] CenterIn the event this information is protected by the Federal Confidentiality of Alcohol and Drug Abuse Patient Records regulations: The Federal rules restrict any use of the information to criminally investigate or prosecute any alcohol or drug abuse patient.[facility] CenterIn the event this information is protected by the Federal Confidentiality of Alcohol and Drug Abuse Patient Records regulations: The Federal rules restrict any use of the information to criminally investigate or prosecute any alcohol or drug abuse patient.[facility] CenterIn the event this information is protected by the Federal Confidentiality of Alcohol and Drug Abuse Patient Records regulations: The Federal rules restrict any use of the information to criminally investigate or prosecute any alcohol or drug abuse patient.[facility] CenterIn the event this information is protected by the Federal Confidentiality of Alcohol and Drug Abuse Patient Records regulations: The Federal rules restrict any use of the information to criminally investigate or prosecute any alcohol or drug abuse patient.[facility] CenterIn the event this information is protected by the Federal Confidentiality of Alcohol and Drug Abuse Patient Records regulations: The Federal rules restrict any use of the information to criminally investigate or prosecute any alcohol or drug abuse patient.[facility] CenterIn the event this information is protected by the Federal Confidentiality of Alcohol and Drug Abuse Patient Records regulations: The Federal rules restrict any use of the information to criminally investigate or prosecute any alcohol or drug abuse patient.[facility] CenterIn the event this information is protected by the Federal Confidentiality of Alcohol and Drug Abuse Patient Records regulations: The Federal rules restrict any use of the information to criminally investigate or prosecute any alcohol or drug abuse patient.[facility] CenterIn the event this information is protected by the Federal Confidentiality of Alcohol and Drug Abuse Patient Records regulations: The Federal rules restrict any use of the information to criminally investigate or prosecute any alcohol or drug abuse patient.[facility] CenterIn the event this information is protected by the Federal Confidentiality of Alcohol and Drug Abuse Patient Records regulations: The Federal rules restrict any use of the information to criminally investigate or prosecute any alcohol or drug abuse patient.[facility] CenterIn the event this information is protected by the Federal Confidentiality of Alcohol and Drug Abuse Patient Records regulations: The Federal rules restrict any use of the information to criminally investigate or prosecute any alcohol or drug abuse patient.[facility] CenterIn the event this information is protected by the Federal Confidentiality of Alcohol and Drug Abuse Patient Records regulations: The Federal rules restrict any use of the information to criminally investigate or prosecute any alcohol or drug abuse patient.[facility] CenterIn the event this information is protected by the Federal Confidentiality of Alcohol and Drug Abuse Patient Records regulations: The Federal rules restrict any use of the information to criminally investigate or prosecute any alcohol or drug abuse patient.[facility] CenterIn the event this information is protected by the Federal Confidentiality of Alcohol and Drug Abuse Patient Records regulations: The Federal rules restrict any use of the information to criminally investigate or prosecute any alcohol or drug abuse patient.[facility] CenterIn the event this information is protected by the Federal Confidentiality of Alcohol and Drug Abuse Patient Records regulations: The Federal rules restrict any use of the information to criminally investigate or prosecute any alcohol or drug abuse patient.[facility] CenterIn the event this information is protected by the Federal Confidentiality of Alcohol and Drug Abuse Patient Records regulations: The Federal rules restrict any use of the information to criminally investigate or prosecute any alcohol or drug abuse patient.[facility] CenterIn the event this information is protected by the Federal Confidentiality of Alcohol and Drug Abuse Patient Records regulations: The Federal rules restrict any use of the information to criminally investigate or prosecute any alcohol or drug abuse patient.[facility] CenterIn the event this information is protected by the Federal Confidentiality of Alcohol and Drug Abuse Patient Records regulations: The Federal rules restrict any use of the information to criminally investigate or prosecute any alcohol or drug abuse patient.[facility] CenterIn the event this information is protected by the Federal Confidentiality of Alcohol and Drug Abuse Patient Records regulations: The Federal rules restrict any use of the information to criminally investigate or prosecute any alcohol or drug abuse patient.[facility] CenterIn the event this information is protected by the Federal Confidentiality of Alcohol and Drug Abuse Patient Records regulations: The Federal rules restrict any use of the information to criminally investigate or prosecute any alcohol or drug abuse patient.[facility] CenterIn the event this information is protected by the Federal Confidentiality of Alcohol and Drug Abuse Patient Records regulations: The Federal rules restrict any use of the information to criminally investigate or prosecute any alcohol or drug abuse patient.[facility] CenterIn the event this information is protected by the Federal Confidentiality of Alcohol and Drug Abuse Patient Records regulations: The Federal rules restrict any use of the information to criminally investigate or prosecute any alcohol or drug abuse patient.[facility] Reason for Visit (unrecogniz ed section and content) Reason Comments Results Reason Comments FMLA Paperwork Return To Work Letter Specialty Diagnoses / Procedures Referred By Contender t Referred To Contact CT IMAGING Diagnoses Inflammatory bowel disease Procedures CT ENTEROGRAPHY W IVCON CT ABD & PELVIS W/CONTRAST Kath Sosa MD [address] [place] [address] Ct Imaging Referral ID Status Reason Start Date Expiration Date V isits Requested Visits Authorized [id number] Closed Auto-Generate d Referral 07/23/2021 09/14/2021 1 [...] hernia Procedures CONSULT TO GENERAL SURGERY OFFICE/OUTPATIENT [facility] HIGH MDM 60-74 MINUTES Toñito Johnson APRN.RECORDING ARTIST [address] [place] [address] Referral ID Status Reason Start Date Expiration Date V isits Requested Visits Authorized [id number] Closed PCP Requested Referral 01/05/2022 01/05/2023 1 1 Reason Comments Future Appointment Reason Comments Benefits Investigation Reason Comments Appointment Reason Comments Non-Chemotherapy Treatment Specialty Diagnoses / Procedures Referred By Contac t Referred To Contact Diagnoses Crohn's disease of ileum with other complication (HCC) Procedures INFLIXIMAB INJECTION Tia Osei PA-C [address] [place] [address] [facility] [address] [place] [address] Referral ID Status Reason Start Date Expiration Date V isits Requested Visits Authorized [id number] Pending Review 12/09/2021 06/06/2022 4 4 Referral ID Status Reason Start Date Expiration Date V isits Requested Visits Authorized [id number] Authorized 12/09/2021 06/06/2022 4 4 Reason Onset Date Comments Post-Op Visit 02/17/2022 Immunizations 02/17/2022 Flu vaccination Reason Comments Patient Question Referral ID Status Reason Start Date Expiration Date V isits Requested Visits Authorized [id number] Authorized 12/09/2021 10/24/2022 8 8 Reason Comments requetsing referral Reason Comments Crohns Reason Comments Insurance Authorization Reason Comments Chemotherapy Treatment Specialty Diagnoses / Procedures Referred By Lyubov t Referred To Contact Diagnoses Crohn's disease of ileum with other complication (HCC) Procedures INJ. AVSOLA, 10 MG Kaylie Parham PA-C [address] [facility] [place] [address] [facility] [address] [place] [address] Referral ID Status Reason Start Date Expiration Date V isits Requested Visits Authorized [id number] Authorized 10/27/2022 10/27/2023 7 7 Reason Comments Physical Reason Comments Remicade Infusion Reason Comments Sore Throat x 4 days Reason Comments Well Woman Reason Comments Ear Pain left ear and left si de of throat x last night Reason Comments Cough sore throat x 3 days Reason Comments Yearly Exam URI sx, cough, conge stion x 4 days, was seen in [facility] and prescribed prednisone Reason Onset Date Comments Medication Problem 06/02/2024 Reason Comments Knee Pain Left knee pain, in p atella area, no injury noted, x 2 weeks Swelling some and warmth in area Reason Comments Urinary Frequency Frequency and lower back pain x 2 days Reason Comments UTI UC 01/02 for uti sx, blood in urine, 1 dose left of Macrobid, reports sx resolved Care Teams (unrecognized sec tion and content) Linux Admin Engineer Relationship Specialty Start Date End Date Drake Whiting, DO [address] [place] [address] PCP - General Family Practice 11/13/14 Linux Admin Engineer Relationship Specialty Start Date End Date Drake Whiting DO [address] [place], [place] [id number] PCP - General Family Practice 11/13/14 Linux Admin Engineer Relationship Specialty Start Date End Date Drake Whiting, DO [address] [place] [address] PCP - General Family Practice 11/13/14 Linux Admin Engineer Relationship Specialty Start Date End Date Drake Whiting, DO [address] [facility] [place] [address] PCP - General Family Practice 11/13/14 Linux Admin Engineer Relationship Specialty Start Date End Date Drake Whiting, DO [address] [facility] [place] [address] PCP - General Family Practice 11/13/14 Linux Admin Engineer Relationship Specialty Start Date End Date Drake Whiting, DO [address] [facility] [place] [address] PCP - General Family Practice 11/13/14 Kath Sosa MD [address] [place] [address] Gastroenterology 09/17/21 Linux Admin Engineer Relationship Specialty Start Date End Date Drake Whiting, DO [address] [facility] [place] [address] PCP - General Family Practice 11/13/14 Kath Sosa MD [address] [place] [address] Gastroenterology 09/17/21 Linux Admin Engineer Relationship Specialty Start Date End Date Drake Whiting, DO [address] [facility] [place] [address] PCP - General Family Practice 11/13/14 Kath Sosa MD [address] [facility] [place] [address] Gastroenterology 09/17/21 Linux Admin Engineer Relationship Specialty Start Date End Date Drake Whiting, DO [address] [facility] [place] [address] PCP - General Family Practice 11/13/14 Kath Sosa MD [address] [place] [address] Gastroenterology 09/17/21 Linux Admin Engineer Relationship Specialty Start Date End Date Drake Whiting, DO [address] [facility] [place] [address] PCP - General Family Practice 11/13/14 Kath Sosa MD [address] [facility] [place] [address] Gastroenterology 09/17/21 Linux Admin Engineer Relationship Specialty Start Date End Date Drake Whiting, DO [address] [facility] [place] [address] PCP - General Family Practice 11/13/14 Kath Sosa MD [address] [place] [address] Gastroenterology 09/17/21 Linux Admin Engineer Relationship Specialty Start Date End Date Drake Whiting, DO [address] [facility] [place] [address] PCP - General Family Practice 11/13/14 Kath Sosa MD [address] [place] [address] Gastroenterology 09/17/21 Linux Admin Engineer Relationship Specialty Start Date End Date Drake Whiting, DO [address] [facility] [place] [address] PCP - General Family Practice 11/13/14 Kath Sosa MD [address] [facility] [place] [address] Gastroenterology 09/17/21 Linux Admin Engineer Relationship Specialty Start Date End Date Drake Whiting, DO [address] [facility] [place] [address] PCP - General Family Practice 11/13/14 Kath Sosa MD [address] [place] [address] Gastroenterology 09/17/21 Linux Admin Engineer Relationship Specialty Start Date End Date Drake Whiting, DO [address] [facility] [place] [address] PCP - General Family Practice 11/13/14 Kath Sosa MD [address] [place] [address] Gastroenterology 09/17/21 Linux Admin Engineer Relationship Specialty Start Date End Date Drake Whiting, DO [address] [facility] [place] [address] PCP - General Family Medicine 11/13/14 Kath Sosa MD [address] [place] [address] Gastroenterology 09/17/21 Linux Admin Engineer Relationship Specialty Start Date End Date Drake Whiting, DO [address] [facility] [place] [address] PCP - General Family Medicine 11/13/14 Kath Sosa MD [address] [place] [address] Gastroenterology 09/17/21 Linux Admin Engineer Relationship Specialty Start Date End Date Drake Whiting, DO [address] [facility] [place] [address] PCP - General Family Medicine 11/13/14 Kath Sosa MD [address] [place] [address] Gastroenterology 09/17/21 Linux Admin Engineer Relationship Specialty Start Date End Date Drake Whiting, DO [address] [facility] [place] [address] PCP - General Family Medicine 11/13/14 Kath Sosa MD [address] [facility] [place] [address] Gastroenterology 09/17/21 Linux Admin Engineer Relationship Specialty Start Date End Date Drake Whiting, DO [address] [facility] [place] [address] PCP - General Family Medicine 11/13/14 Kath Sosa MD [address] [place] [place] [address] Gastroenterology 09/17/21 Linux Admin Engineer Relationship Specialty Start Date End Date Drake Whiting, DO [address] [facility] [place] [address] PCP - General Family Medicine 11/13/14 Kath Sosa MD [address] [place] [address] Gastroenterology 09/17/21 Linux Admin Engineer Relationship Specialty Start Date End Date Drake Whiting, DO [address] [facility] [place] [address] PCP - General Family Medicine 11/13/14 Kath Sosa MD [address] [place] [place] [address] Gastroenterology 09/17/21 Linux Admin Engineer Relationship Specialty Start Date End Date Drake Whiting, DO [address] [facility] [place] [address] PCP - General Family Medicine 11/13/14 Kath Sosa MD [address] [place] [place] [address] Gastroenterology 09/17/21 Linux Admin Engineer Relationship Specialty Start Date End Date Drake Whiting, DO [address] [facility] [place] [address] PCP - General Family Medicine 11/13/14 Kath Sosa MD [address] [facility] [place] [address] Gastroenterology 09/17/21 Linux Admin Engineer Relationship Specialty Start Date End Date Drake Whiting, DO [address] [facility] [place] [address] PCP - General Family Medicine 11/13/14 Kath Sosa MD [address] [place] [address] Gastroenterology 09/17/21 Linux Admin Engineer Relationship Specialty Start Date End Date Drake Whiting, DO [address] [facility] [place] [address] PCP - General Family Medicine 11/13/14 Kath Sosa MD [address] [place] [address] Gastroenterology 09/17/21 Linux Admin Engineer Relationship Specialty Start Date End Date Drake Whiting, DO [address] [facility] [place] [address] PCP - General Family Medicine 11/13/14 Kath Sosa MD [address] [place] [address] Gastroenterology 09/17/21 Linux Admin Engineer Relationship Specialty Start Date End Date Drake Whiting, DO [address] [place] [address] PCP - General Family Medicine 11/13/14 Kath Sosa MD [address] [place], [place] [id number] Gastroenterology 09/17/21 Linux Admin Engineer Relationship Specialty Start Date End Date Drake Whiting DO [address] [place] [address] PCP - General Family Medicine 11/13/14 Kath Sosa MD [address] [place] [address] Gastroenterology 09/17/21 Linux Admin Engineer Relationship Specialty Start Date End Date Drake Whiting DO [address] [place] [address] PCP - General Family Medicine 11/13/14 Kath Sosa MD [address] [place] [address] Gastroenterology 09/17/21 Linux Admin Engineer Relationship Specialty Start Date End Date Drake Whiting DO [address] [place] [address] PCP - General Family Medicine 11/13/14 Kath Sosa MD [address] [place], [place] [id number] Gastroenterology 09/17/21 Team Status: Active Member Role Status Dates Dr. Drake Whiting DO Family Provider Active Dr. Drake Whiting DO Primary Care Provider Active Team Status: Inactive Member Role Status Dates Dr. Drake Whiting DO Primary Care Provider, Referr ing Provider Active Dr. Rey Alcaraz , DO Attending Provider Active Team Status: Inactive Member Role Status Dates Dr. Drake Whiting , DO Primary Care Provider Active Dr. Rey Alcaraz , DO Attending Provider, Referring Provider Active Linux Admin Engineer Relationship Specialty Start Date End Date Drake Whiting DO [address] [place] [address] PCP - General Family Medicine 11/13/14 Kath Sosa MD [address] [place] [address] Gastroenterology 09/17/21 Team Status: Active Member Role Status Dates Dr. Drake Whiting DO Primary Care Provider, Referr ing Provider Active Dr. Rey Alcaraz , DO Attending Provider, Other Prov ider Active Team Status: Inactive Member Role Status Dates Dr. Drake Whiting DO Primary Care Provider Active Dr. Erasmo Cage , DO Emergency Provider Active Team Status: Inactive Member Role Status Dates Dr. Drake Whiting , DO Primary Care Provider Active Dr. Erasmo Cage , DO Attending Provider, Emergency Pro vider Active Linux Admin Engineer Relationship Specialty Start Date End Date Drake Whiting DO [address] [place] [address] PCP - General Family Medicine 11/13/14 Kath Sosa MD [address] [place] [address] Gastroenterology 09/17/21 Linux Admin Engineer Relationship Specialty Start Date End Date Drake Whiting DO [address] [place] [address] PCP - General Family Medicine 11/13/14 Kath Sosa MD [address] [place] [address] Gastroenterology 09/17/21 Linux Admin Engineer Relationship Specialty Start Date End Date Drake Whiting DO [address] [place] [address] PCP - General Family Medicine 11/13/14 Kath Sosa MD [address] [facility] [place] [address] Gastroenterology 09/17/21 Linux Admin Engineer Relationship Specialty Start Date End Date Drake Whiting DO [address] [place] [address] PCP - General Family Medicine 11/13/14 Kath Sosa MD [address] [facility] [place] [address] Gastroenterology 09/17/21 Magdalena Nuñez APRN.RECORDING ARTIST [address] [place] [address] Wagon Driver Salesperson Family Medicine 04/16/24 Toñito Johnson APRN.RECORDING ARTIST [address] [place] [address] Wagon Driver Salesperson Family Medicine 04/16/24 Linux Admin Engineer Relationship Specialty Start Date End Date Drake Whiting DO [address] [place] [address] PCP - General Family Medicine 11/13/14 Kath Sosa MD [address] [facility] [place] [address] Gastroenterology 09/17/21 Magdalena Nuñez, WARP PICKER.RECORDING ARTIST [address] [place] [address] [facility] 04/16/24 Toñito Johnson APRN.RECORDING ARTIST [address] [place] [address] [facility] 04/16/24 Linux Admin Engineer Relationship Specialty Start Date End Date Drake Whiting DO [address] [place] [address] PCP - General Family Medicine 11/13/14 Kath Sosa MD [address] [facility] [place] [address] Gastroenterology 09/17/21 Magdalena Nuñez, WARP PICKER.RECORDING ARTIST [address] [place] [address] [facility] 04/16/24 Toñito Johnson, WARP PICKER.RECORDING ARTIST [address] [place] [address] [facility] 04/16/24 Linux Admin Engineer Relationship Specialty Start Date End Date Drake Whiting DO [address] [place] [address] PCP - General Family Medicine 11/13/14 Kath Sosa MD [address] [facility] [place] [address] Gastroenterology 09/17/21 Magdalena Nuñez WARP PICKER.RECORDING ARTIST [address] [facility] [place] [address] [facility] 04/16/24 Toñito Johnson, GALEN.RECORDING ARTIST [address] [facility] [place] [address] [facility] 04/16/24 Linux Admin Engineer Relationship Specialty Start Date End Date Drake Whiting DO [address] [place] [address] PCP - General Family Medicine 11/13/14 Kath Sosa MD [address] [place] [address] Gastroenterology 09/17/21 Magdalena Nuñez, GALEN.RECORDING ARTIST [address] [place] [address] [facility] 04/16/24 07/28/24 Toñito Johnson, WARP PICKER.RECORDING ARTIST [address] [place] [address] [facility] 04/16/24 Team Status: Active Member Role Status Dates Dr. Drake Whiting DO Primary Care Provider Active Team Status: Inactive Member Role Status Dates Dr. Drake Whiting DO Primary Care Provider Active Start: July 10, 2024 End: July 10, 2024 Dr. Drake Whiting DO Referring Provider Active Start: July 10, 2024 End: July 10, 2024 Cristy Miranda Attending Provider Active Star t: July 10, 2024 End: July 10, 2024 Team Status: Inactive Member Role Status Dates Dr. Drake Whiting DO Primary Care Provider Active Start: August 23, 2024 End: August 23, 2024 Dr. Rey Alcaraz DO Attending Provider Active Start: August 23, 2024 End: August 23, 2024 Dr. Rey Alcaraz DO Referring Provider Active Start: August 23, 2024 End: August 23, 2024 Team Status: Inactive Member Role Status Dates Dr. Drake Whiting DO Primary Care Provider Active Start: September 04, 2024 End: September 04, 2024 Dr. Drake Whiting DO Referring Provider Active Start: September 04, 2024 End: September 04, 2024 Dr. Rey Alcaraz DO Attending Provider Active Start: September 04, 2024 End: September 04, 2024 Team Status: Inactive Member Role Status Dates Dr. Drake Whiting DO Primary Care Provider Active Start: September 06, 2024 End: September 06, 2024 Dr. Drake Whiting DO Referring Provider Active Start: September 06, 2024 End: September 06, 2024 Cristy Miranda Attending Provider Active Star t: September 06, 2024 End: September 06, 2024 Team Status: Inactive Member Role Status Dates Dr. Drake Whiting DO Primary Care Provider Active Start: September 14, 2024 End: September 14, 2024 Dr. Rey Alcaraz DO Attending Provider Active Start: September 14, 2024 End: September 14, 2024 Dr. Rey Alcaraz DO Referring Provider Active Start: September 14, 2024 End: September 14, 2024 Team Status: Inactive Member Role Status Dates Dr. Drake Whiting DO Primary Care Provider Active Start: September 28, 2024 End: September 28, 2024 Dr. Rey Alcaraz DO Attending Provider Active Start: September 28, 2024 End: September 28, 2024 Dr. Rey Alcaraz DO Referring Provider Active Start: September 28, 2024 End: September 28, 2024 Team Status: Inactive Member Role Status Dates Dr. Drake Whiting DO Primary Care Provider Active Start: October 12, 2024 End: October 12, 2024 Dr. Rey Alcaraz DO Attending Provider Active Start: October 12, 2024 End: October 12, 2024 Dr. Rey Alcaraz DO Referring Provider Active Start: October 12, 2024 End: October 12, 2024 Team Status: Active Member Role/Relationship Status Dates Dr. Drake Whiting DO Primary Care Provider Active Team Status: Inactive Member Role/Relationship Status Dates Dr. Drake Whiting DO Primary Care Provider Active Start: August 23, 2024 End: August 23, 2024 Dr. Rey Alcaraz DO Attending Provider Active Start: August 23, 2024 End: August 23, 2024 Dr. Rey Alcaraz DO Referring Provider Active Start: August 23, 2024 End: August 23, 2024 Team Status: Inactive Member Role/Relationship Status Dates Dr. Drake Whiting DO Primary Care Provider Active Start: September 04, 2024 End: September 04, 2024 Dr. rDake Whiting DO Referring Provider Active Start: September 04, 2024 End: September 04, 2024 Dr. Rey Alcaraz DO Attending Provider Active Start: September 04, 2024 End: September 04, 2024 Team Status: Inactive Member Role/Relationship Status Dates Dr. Drake Whiting DO Primary Care Provider Active Start: September 06, 2024 End: September 06, 2024 Dr. Drake Whiting DO Referring Provider Active Start: September 06, 2024 End: September 06, 2024 Cristy Miranda Attending Provider Active Star t: September 06, 2024 End: September 06, 2024 Team Status: Inactive Member Role/Relationship Status Dates Dr. Drake Whiting DO Primary Care Provider Active Start: September 14, 2024 End: September 14, 2024 Dr. Rey Alcaraz DO Attending Provider Active Start: September 14, 2024 End: September 14, 2024 Dr. Rey Alcaraz DO Referring Provider Active Start: September 14, 2024 End: September 14, 2024 Team Status: Inactive Member Role/Relationship Status Dates Dr. Drake Whiting DO Primary Care Provider Active Start: September 28, 2024 End: September 28, 2024 Dr. Rey Alcaraz DO Attending Provider Active Start: September 28, 2024 End: September 28, 2024 Dr. Rey Alcaraz DO Referring Provider Active Start: September 28, 2024 End: September 28, 2024 Team Status: Inactive Member Role/Relationship Status Dates Dr. Drake Whiting DO Primary Care Provider Active Start: October 12, 2024 End: October 12, 2024 Dr. Rey Alcaraz DO Attending Provider Active Start: October 12, 2024 End: October 12, 2024 Dr. Rey Alcaraz DO Referring Provider Active Start: October 12, 2024 End: October 12, 2024 Team Status: Inactive Member Role/Relationship Status Dates Dr. Drake Whiting DO Primary Care Provider Active Start: November 09, 2024 End: November 09, 2024 Dr. Rey Alcaraz DO Attending Provider Active Start: November 09, 2024 End: November 09, 2024 Dr. Rey Alcaraz DO Referring Provider Active Start: November 09, 2024 End: November 09, 2024 Linux Admin Engineer Relationship Specialty Start Date End Date Drake Whtiing DO [address] [place] [address] PCP - General Family Medicine 11/13/14 Kath Sosa MD [address] [place], [place] [id number] Gastroenterology 09/17/21 Toñito Johnson, WARP PICKER.RECORDING ARTIST [address] [place] [address] Wagon Driver Salesperson Family Medicine 04/16/24 Danna Ramirez, WARP PICKER.RECORDING ARTIST [address] [place], [place] [id number] Wagon Driver Salesperson Family [facility] 10/23/24 Linux Admin Engineer Relationship Specialty Start Date End Date Drake Whiting DO [address] [place], [place] [address] PCP - General Family Medicine 11/13/14 Kath Sosa MD [address] [place], [place] [id number] Gastroenterology 09/17/21 Toñito Johnson, WARP PICKER.RECORDING ARTIST [address] [place] [address] [facility] 04/16/24 Danna Ramirez, WARP PICKER.RECORDING ARTIST [address] [place] [id number] [facility] 10/23/24 Team Status: Inactive Member Role/Relationship Status Dates Dr. Drake Whiting DO Primary Care Provider Active Start: September 04, 2024 End: September 04, 2024 Dr. Drake Whiting DO Referring Provider Active Start: September 04, 2024 End: September 04, 2024 Dr. Rey Alcaraz DO Attending Provider Active Start: September 04, 2024 End: September 04, 2024 Team Status: Inactive Member Role/Relationship Status Dates Dr. Drake Whiting DO Primary Care Provider Active Start: September 06, 2024 End: September 06, 2024 Dr. Drake Whiting DO Referring Provider Active Start: September 06, 2024 End: September 06, 2024 Cristy Miranda Attending Provider Active Star t: September 06, 2024 End: September 06, 2024 Team Status: Inactive Member Role/Relationship Status Dates Dr. Drake Whiting DO Primary Care Provider Active Start: September 14, 2024 End: September 14, 2024 Dr. Rey Alcaraz DO Attending Provider Active Start: September 14, 2024 End: September 14, 2024 Dr. Rey Alcaraz DO Referring Provider Active Start: September 14, 2024 End: September 14, 2024 Team Status: Inactive Member Role/Relationship Status Dates Dr. Drake Whiting DO Primary Care Provider Active Start: September 28, 2024 End: September 28, 2024 Dr. Rey Alcaraz DO Attending Provider Active Start: September 28, 2024 End: September 28, 2024 Dr. Rey Alcaraz DO Referring Provider Active Start: September 28, 2024 End: September 28, 2024 Team Status: Inactive Member Role/Relationship Status Dates Dr. Drake Whiting DO Primary Care Provider Active Start: October 12, 2024 End: October 12, 2024 Dr. Rey Alcaraz DO Attending Provider Active Start: October 12, 2024 End: October 12, 2024 Dr. Rey Alcaraz DO Referring Provider Active Start: October 12, 2024 End: October 12, 2024 Team Status: Inactive Member Role/Relationship Status Dates Dr. Drake Whiting DO Primary Care Provider Active Start: November 09, 2024 End: November 09, 2024 Dr. Rey Alcaraz DO Attending Provider Active Start: November 09, 2024 End: November 09, 2024 Dr. Rey Alcaraz DO Referring Provider Active Start: November 09, 2024 End: November 09, 2024 Team Status: Inactive Member Role/Relationship Status Dates Dr. Drake Whiting DO Primary Care Provider Active Start: December 21, 2024 End: December 21, 2024 Dr. Rey Alcaraz DO Attending Provider Active Start: December 21, 2024 End: December 21, 2024 Dr. Rey Alcaraz DO Referring Provider Active Start: December 21, 2024 End: December 21, 2024 Team Status: Inactive Member Role/Relationship Status Dates Dr. Drake Whiting DO Primary Care Provider Active Start: September 06, 2024 End: September 06, 2024 Dr. Drake Whiting DO Referring Provider Active Start: September 06, 2024 End: September 06, 2024 Cristy Miranda Attending Provider Active Star t: September 06, 2024 End: September 06, 2024 Team Status: Inactive Member Role/Relationship Status Dates Dr. Drake Whiting DO Primary Care Provider Active Start: September 14, 2024 End: September 14, 2024 Dr. Rey Alcaraz DO Attending Provider Active Start: September 14, 2024 End: September 14, 2024 Dr. Rey Alcaraz DO Referring Provider Active Start: September 14, 2024 End: September 14, 2024 Team Status: Inactive Member Role/Relationship Status Dates Dr. Drake Whiting DO Primary Care Provider Active Start: September 28, 2024 End: September 28, 2024 Dr. Rey Alcaraz DO Attending Provider Active Start: September 28, 2024 End: September 28, 2024 Dr. Rey Alcaraz DO Referring Provider Active Start: September 28, 2024 End: September 28, 2024 Team Status: Inactive Member Role/Relationship Status Dates Dr. Drake Whiting DO Primary Care Provider Active Start: October 12, 2024 End: October 12, 2024 Dr. Rey Alcaraz DO Attending Provider Active Start: October 12, 2024 End: October 12, 2024 Dr. Rey Alcaraz DO Referring Provider Active Start: October 12, 2024 End: October 12, 2024 Team Status: Inactive Member Role/Relationship Status Dates Dr. Drake Whiting DO Primary Care Provider Active Start: November 09, 2024 End: November 09, 2024 Dr. Rey Alcaraz DO Attending Provider Active Start: November 09, 2024 End: November 09, 2024 Dr. Rey Alcaraz DO Referring Provider Active Start: November 09, 2024 End: November 09, 2024 Team Status: Inactive Member Role/Relationship Status Dates Dr. Drake Whiting DO Primary Care Provider Active Start: December 21, 2024 End: December 21, 2024 Dr. Rey Alcaraz DO Attending Provider Active Start: December 21, 2024 End: December 21, 2024 Dr. Rey Alcaraz DO Referring Provider Active Start: December 21, 2024 End: December 21, 2024 Team Status: Inactive Member Role/Relationship Status Dates Dr. Drake Whiting DO Primary Care Provider Active Start: January 02, 2025 End: January 02, 2025 Dr. Rey Alcaraz DO Attending Provider Active Start: January 02, 2025 End: January 02, 2025 Dr. Rey Alcaraz DO Referring Provider Active Start: January 02, 2025 End: January 02, 2025 Linux Admin Engineer Relationship Specialty Start Date End Date Drake Whiting DO [address] [place] [address] PCP - General Family Medicine 11/13/14 Kath Sosa MD [address] [facility] [place] [address] Gastroenterology 09/17/21 Toñito Johnson, WARP PICKER.RECORDING ARTIST [address] [facility], [place] [id number] [facility] 04/16/24 Danna Ramirez, WARP PICKER.RECORDING ARTIST [address] [place] [address] [facility] 10/23/24 Linux Admin Engineer Relationship Specialty Start Date End Date Drake Whiting DO [address] [place] [address] PCP - General Family Medicine 11/13/14 Kath Sosa MD [address] [place] [address] Gastroenterology 09/17/21 Toñito Johnson, WARP PICKER.RECORDING ARTIST [address] [place] [address] [facility] 04/16/24 Danna Ramirez, WARP PICKER.RECORDING ARTIST [address] [place] [address] [facility] 10/23/24 Linux Admin Engineer Relationship Specialty Start Date End Date Drake Whiting DO [address] [place] [address] PCP - General Family Medicine 11/13/14 Kath Sosa MD [address] [place] [address] Gastroenterology 09/17/21 Toñito Johnson, WARP PICKER.RECORDING ARTIST [address] [place] [address] [facility] 04/16/24 Danna Ramirez, WARP PICKER.RECORDING ARTIST [address] [place], [place] [address] [facility] 10/23/24 Team Status: Active Member Role/Relationship Status Dates Dr. Drake Whiting DO Primary care physician Active Team Status: Inactive Member Role/Relationship Status Dates Dr. Drake Whiting DO Primary care physician Active Start: November 09, 2024 End: November 09, 2024 Dr. Rey Alcaraz DO Attending physician Active Start: November 09, 2024 End: November 09, 2024 Dr. Rey Alcaraz DO Referring Provider Active Start: November 09, 2024 End: November 09, 2024 Team Status: Inactive Member Role/Relationship Status Dates Dr. Drake Whiting DO Primary care physician Active Start: December 21, 2024 End: December 21, 2024 Dr. Rey Alcaraz DO Attending physician Active Start: December 21, 2024 End: December 21, 2024 Dr. Rey Alcaraz DO Referring Provider Active Start: December 21, 2024 End: December 21, 2024 Team Status: Inactive Member Role/Relationship Status Dates Dr. Drake Whiting DO Primary care physician Active Start: January 02, 2025 End: January 02, 2025 Dr. Rey Alcaraz DO Attending physician Active Start: January 02, 2025 End: January 02, 2025 Dr. Rey Alcaraz DO Referring Provider Active Start: January 02, 2025 End: January 02, 2025 Team Status: Inactive Member Role/Relationship Status Dates Dr. Drake Whiting DO Primary care physician Active Start: February 23, 2025 End: February 23, 2025 Dr. Drake Whiting DO Referring Provider Active Start: February 23, 2025 End: February 23, 2025 Dr. Rey Alcaraz DO Attending physician Active Start: February 23, 2025 End: February 23, 2025 Team Status: Inactive Member Role/Relationship Status Dates Dr. Drake Whiting DO Primary care physician Active Start: February 27, 2025 End: February 27, 2025 Dr. Rey Alcaraz DO Attending physician Active Start: February 27, 2025 End: February 27, 2025 Dr. Rey Alcaraz DO Referring Provider Active Start: February 27, 2025 End: February 27, 2025 Team Status: Inactive Member Role/Relationship Status Dates Dr. Drake Whiting DO Primary care physician Active Start: December 21, 2024 End: December 21, 2024 Dr. Rey Alcaraz DO Attending physician Active Start: December 21, 2024 End: December 21, 2024 Dr. Rey Alcaraz DO Referring Provider Active Start: December 21, 2024 End: December 21, 2024 Team Status: Inactive Member Role/Relationship Status Dates Dr. Drake Whiting DO Primary care physician Active Start: January 02, 2025 End: January 02, 2025 Dr. Rey Alcaraz DO Attending physician Active Start: January 02, 2025 End: January 02, 2025 Dr. Rey Alcaraz DO Referring Provider Active Start: January 02, 2025 End: January 02, 2025 Team Status: Inactive Member Role/Relationship Status Dates Dr. Drake Whiting DO Primary care physician Active Start: February 23, 2025 End: February 23, 2025 Dr. Drake Whiting DO Referring Provider Active Start: February 23, 2025 End: February 23, 2025 Dr. Rey Alcaraz DO Attending physician Active Start: February 23, 2025 End: February 23, 2025 Team Status: Inactive Member Role/Relationship Status Dates Dr. Drake Whiting DO Primary care physician Active Start: February 27, 2025 End: February 27, 2025 Dr. Rey Alcaraz DO Attending physician Active Start: February 27, 2025 End: February 27, 2025 Dr. Rye Alcaraz DO Referring Provider Active Start: February 27, 2025 End: February 27, 2025 Goals (unrecognized section and content) Goals may be documented in a n alternate sectionGoals may be documented in an alternate sectionGoals may be documented in an alternate sectionGoals may be documented in an alternate sectionGoals may be documented in an alternate sectionGoals may be documented in an alternate sectionGoals may be documented in an alternate sectionGoals may be documented in an alternate section FOR RECORDS PERTAINING TO PATIENTS WHO ARE [...] BE BASED ON THE PRIMARY CLINICAL RECORDS. [facility] [employer] [facility]. provides no warranty or guarantee of the accuracy or completeness of information in this document.
[2025-04-06 09:47] VITALS: BP 122/72; PULSE 82; TEMP 36.6; O2SAT 100
== END 2025-04-06 09:39 | disposition home or self-care (01) ==
PROVIDERS: PCP Student in an Organized Health Care Education/Training Program; Referring Provider Student in an Organized Health Care Education/Training Program; Visit Provider Internal Medicine Gastroenterology
PROC: F00ZJWZ Instrumental Swallowing and Oral Function Assessment using Swallowing Equipment (ICD-10-PCS; CPT 43235; principal; 2025-04-06 08:55)
DX: R13.10 Dysphagia, unspecified (principal)
CPT/HCPCS: 91010

== ENCOUNTER 2025-04-24 12:53 | Outpatient (CLI) | payer MEDICAID, SELFPAY ==
[2025-04-24 13:09] VITALS: BP 102/58; PULSE 87; RESP 16; TEMP 36; O2SAT 100; BMI 33.8
[2025-04-24] MEDS: 0.9% NaCl IVPB Med Flush (100mL) 15 ML IV (13:21)
[2025-04-24] MEDS: Vedolizumab 300 MG in 0.9% Normal Saline (250mL Bag) 250 ML 500 MG IV (13:34)
[2025-04-24 14:11] VITALS: BP 100/53; PULSE 94; RESP 16; TEMP 36.1; O2SAT 97
== END 2025-04-24 23:59 | disposition home or self-care (01) ==
LOC: MEDOUTP 12:53
PROVIDERS: PCP Student in an Organized Health Care Education/Training Program; Referring Provider Internal Medicine Gastroenterology; Visit Provider Internal Medicine Gastroenterology
DX: K50.90 Crohn's disease, unspecified, without complications (principal)
CPT/HCPCS: 96365; A4216; J3380